=== PATIENT | male | born 1940 | race Caucasian/White ===

== ENCOUNTER → 2017-06-28 | Outpatient (CLI) | payer BC, OTHER ==
[~2017-06-28] MED LIST: ASPEC81 PO; CMD5 PO; CRD200 PO; FLUT1INH INH; GLC/500 PO; LSN25 PO; LSX40 PO; METO50TA16 PO; MYL80 PO; OMEP20CA9 PO; POTA10LI PO; PRAV20TA PO; TRIA0.1C20 EXT
--- NOTE | 2017-06-28 10:16 | DIAGNOSTIC IMAGING REPORT ---
CHEST 2 VIEWS ROUTINE CLINICAL HISTORY: 76 years-old Male presenting with SOB. TECHNIQUE: PA and lateral views of the chest were obtained. COMPARISON: 07/02/2016. FINDINGS: Median sternotomy wires intact. Atherosclerosis of aortic arch. Cardiac silhouette normal in size. Lungs are mildly hyperinflated.Lungs and pleural spaces clear. Osseous structures normal. Upper abdomen normal. IMPRESSION: 1. Mild hyperinflation. Otherwise no acute cardiopulmonary disease. Electronically signed by: Sukhi Purvsi M.D. 06/28/2017 10:14 AM Dictated Date/Time: 06/28/2017 10:13 AM
== END | disposition home or self-care (01) ==
LOC: C.RAD1850 09:49
PROVIDERS: ATTEND Physician Assistant
DX: R06.02 Shortness of breath (principal)

== ENCOUNTER → 2017-11-16 | Outpatient (CLI) | payer BC, OTHER ==
[~2017-11-16] MED LIST changes: +AMLO2.5T PO; +ASPCH81X PO; -ASPEC81 PO; +BCTROWC TOP; -CMD5 PO; -CRD200 PO; +DAPA1TAB8 PO; -FLUT1INH INH; -GLC/500 PO; +GLIP1TAB85 PO; +GLUC15002 PO; +GLUC1CAP6 PO; +IPRA1AER2 INH; +ISS/10 PO; +JNV100 PO; +METO-478 PO; -METO50TA16 PO; +MULT60CA PO; -MYL80 PO; +NTRGSL/4 UT; +OMEG10007 PO; +OMEGCAP2 PO; -POTA10LI PO; +POTA1CAP53 PO; -PRAV20TA PO; -TRIA0.1C20 EXT; +WARF-281 PO; +WARF5TAB90 PO
--- NOTE | 2017-11-16 14:23 | DIAGNOSTIC IMAGING REPORT ---
BONE SCAN WHOLE BODY CLINICAL HISTORY: Prostate carcinoma COMPARISON STUDY: No previous studies for comparison. FINDINGS: The patient was injected with 27.5 mCi of technetium 99m MDP. Three-hour delayed whole body images were acquired. There is evidence for a prior total knee arthroplasty. There is evidence for prior right hip arthroplasty. There are no foci of increased activity viewed as suspicious for skeletal metastasis. IMPRESSION: No bone scan evidence of skeletal metastasis. Electronically signed by: Phan Bailey M.D. 11/16/2017 2:21 PM Dictated Date/Time: 11/16/2017 2:20 PM
== END | disposition home or self-care (01) ==
LOC: C.NUCL 10:10
PROVIDERS: ATTEND Physician Assistant Medical
DX: C61 Malignant neoplasm of prostate (principal)

== ENCOUNTER → 2017-11-19 | Outpatient (CLI) | payer BC, OTHER ==
[~2017-11-19] MED LIST changes: +OPTIRAY 320 IV PRN
--- NOTE | 2017-11-19 07:59 | DIAGNOSTIC IMAGING REPORT ---
CT SCAN OF THE ABDOMEN AND PELVIS WITH IV CONTRAST CLINICAL HISTORY: Prostate cancer. COMPARISON STUDY: Abdominal CT dictated 07/04/2009. Nuclear bone scan dated 11/16/2017. TECHNIQUE: Following the IV administration of 115 cc of Optiray 320, CT scan of the abdomen and pelvis is performed from the lung bases to the proximal femora. Images are reviewed in the axial, sagittal, and coronal planes. IV contrast was administered without complication. A dose lowering technique was utilized adhering to the principles of ALARA. CT DOSE: 1050.17 mGy.cm FINDINGS: Lung bases: The patient is status post midline sternotomy. The heart is mildly enlarged and without pericardial effusion. The coronary arteries and mitral annulus are densely calcified. The lung bases are clear noting dependent atelectasis. There is a small to moderate hiatal hernia. Liver: The contrast-enhanced liver is normal in size, contour, and attenuation. There is no intrahepatic biliary ductal dilatation. The hepatic veins and portal veins are patent. Gallbladder: Surgically absent noting clips in the gallbladder fossa. Spleen: The spleen is mildly enlarged, measuring 14.5 cm in length. Pancreas: Unremarkable. Adrenal glands: Unremarkable. Kidneys: The contrast enhanced kidneys demonstrate mild cortical atrophy and are without hydronephrosis. The kidneys enhance symmetrically. Scattered subcentimeter cortical hypodensities likely represent cysts but are too small for definitive characterization. Abdominal vasculature: The abdominal aorta is normal in course and caliber noting moderate atherosclerotic calcification. Bowel: There is moderate colonic diverticulosis without CT evidence of acute diverticulitis. Mild colonic fecal retention is observed. No bowel obstruction is seen. The appendix is well-visualized and normal. Peritoneum: There is no intraperitoneal free air or abdominal ascites. There is a small fat-containing umbilical hernia. A 1.4 cm benign-appearing nodular focus below the liver seen on image #153 is unchanged dating back to 2008 and of doubtful significance. Lymphadenopathy: None. Pelvic viscera: Evaluation of the pelvis is degraded by streak artifact from a right hip arthroplasty. The prostate gland is enlarged and heterogeneous, measuring 5.6 cm in transverse diameter. The bladder is normal as imaged. Skeletal structures: The skeletal structures are osteopenic. There is mild lumbosacral spondylosis. No lytic or blastic lesions are seen. A right hip arthroplasty is in place. IMPRESSION: 1. There is no evidence of metastatic disease in the abdomen or pelvis. 2. The prostate gland is enlarged and heterogeneous. 3. Moderate colonic diverticulosis without CT evidence of acute diverticulitis. 4. Cardiomegaly and hiatal hernia. 5. Splenomegaly. 6. Additional findings as above. Electronically signed by: Yon Galvez M.D. 11/19/2017 7:57 AM Dictated Date/Time: 11/19/2017 7:49 AM
== END | disposition home or self-care (01) ==
LOC: C.CTS 06:45
PROVIDERS: ATTEND Physician Assistant Medical
DX: C61 Malignant neoplasm of prostate (principal); K57.30 Diverticulosis of large intestine without perforation or abscess without bleeding; I51.7 Cardiomegaly; K44.9 Diaphragmatic hernia without obstruction or gangrene; R16.1 Splenomegaly, not elsewhere classified

== ENCOUNTER 2017-11-21 01:43 | Observation (INO) | payer BC, OTHER ==
[~2017-11-21] VITALS: Ht 175.3 cm; Wt 98.9 kg
[~2017-11-21 01:43] MED LIST changes: -DAPA1TAB8 PO; -GLUC1CAP6 PO; -ISS/10 PO; -METO-478 PO; -OMEG10007 PO; -OPTIRAY 320 IV PRN; -WARF-281 PO
[2017-11-21] MEDS ORDERED: ASPIRIN 324 MG CHEW ONE (01:48)
[2017-11-21] MEDS ORDERED: DILTIAZEM HCL 5 MG/ML 5 ML VIAL ONE (01:50)
[2017-11-21] MEDS ORDERED: DILTIAZEM BOLUS / DRIP IV STA (01:59)
--- NOTE | 2017-11-21 02:04 | EMERGENCY ROOM VISIT NOTE ---
History Report prepared by Radha: Shital Nieto Under the Supervision of: Shelly HendersonO. First contact with patient: 01:52 Chief Complaint: CARDIAC ASSESSMENT Stated Complaint: CHEST PRESSURE/SHORT OF BREATH History of Present Illness The patient is a 76 year old male who presents to the Emergency Room with complaints of persistent shortness of breath that started 2-3 days ago. States this is mostly during any exertion and goes away with rest. He notes he had chest pain an hour ago which woke him up from sleep. He states the pain felt like "tightness". States it feels different from his prior ID. He has not been having chest pain with the shortness of breath in recent days. The patient has a history of Afib. He states he thinks he "flips in and out" of Afib. He is unable to tell when exactly he goes in and out. He states his pain worsens with exertion. The patient had a CT of his abdomen and pelvis a couple of days ago due to his prostate cancer. He notes he has been having diarrhea since the CT. The patient denies any lightheadedness, dizziness, fevers, chills , back pain, or abdominal pain. No recent travel, no change in medications, patient does take Coumadin. Source of History: patient Onset: 2-3 days go Position: other (shortness of breath) Timing: other (persistent) Modifying Factors (Worsening): exertion Associated Symptoms: + chest pain, + diarrhea, No fevers, No chills, No abdominal pain, No back pain Note: Additional symptoms: denies any lightheaded or dizziness. Review of Systems See HPI for pertinent positives & negatives. A total of 10 systems reviewed and were otherwise negative. Past Medical & Surgical Medical Problems: (1) Altered mental status (2) Asthma (3) DM2 (diabetes mellitus, type 2) (4) DVT (deep venous thrombosis) (5) History of left heart catheterization (LHC) (6) HLD (hyperlipidemia) (7) Hyperlipidemia (8) Hypertension (9) AL on CPAP (10) Paroxysmal atrial fibrillation Surgical Problems: (1) H/O esophagogastroduodenoscopy (2) Hx of total knee arthroplasty (3) S/P CABG x 1 (4) S/P cholecystectomy (5) S/P hip replacement (6) S/P knee replacement Family History FHx: diabetes FHx: heart disease FHx: hypertension Social History Smoking Status: Former Smoker Alcohol Use: none Drug Use: none Marital Status: Housing Status: lives with significant other Occupation Status: retired Current/Historical Medications Scheduled Aspirin (Aspirin Chewable), 162 MG PO DAILY Dapagliflozin Propanediol (Farxiga), 10 MG PO DIRECTED Fish Oil ([place]-3), 1,200 MG PO BID Furosemide (Furosemide), 40 MG PO DAILY Glipizide Xl (Glucotrol Xl), 10 MG PO QAM Glucosamine-Chondroitin (Glucosamine Chondroitin C), 1,500 MG PO BID Ipratropium-Albuterol (Combivent Respimat), 1 PUFFS INH QID Lisinopril (Lisinopril), 2.5 MG PO DAILY Metoprolol Succinate (Toprol Xl), 12.5 MG PO DAILY Multiple Vitamins W/ Minerals (Preservision Areds 2), 2 CAP PO DAILY Nitroglycerin (Nitrostat), 0.4 MG UT PRN Omeprazole (Prilosec), 20 MG PO DAILY Potassium Chloride (Klor-Con Sprinkle), 20 MEQ PO DAILY Sitagliptin (Januvia), 100 MG PO DAILY Warfarin Sodium (Warfarin Sodium), 10 MG PO DAILY Allergies Coded Allergies: No Known Allergies (Verified , 11/21/17) Physical Exam Vital Signs Date Time Temp Pulse Resp B/P (MAP) Pulse Ox O2 Delivery O2 Flow Rate FiO2 11/21/17 04:50 91 20 96 Room Air 11/21/17 04:38 65 18 94 Room Air 11/21/17 04:30 110/64 11/21/17 04:08 63 12 11/21/17 04:00 122/67 11/21/17 03:30 110/69 11/21/17 03:08 79 18 93 11/21/17 03:03 117/76 11/21/17 02:52 75 11/21/17 02:43 71 16 94 Room Air 11/21/17 02:13 78 16 91 11/21/17 01:58 93 Room Air 11/21/17 01:54 128 11/21/17 01:52 122/84 11/21/17 01:50 36.8 116 18 122/84 93 Room Air Physical Exam GENERAL: alert, well appearing, well nourished, no distress, non-toxic, obese EYE EXAM: normal conjunctiva, PERRL and EOM's grossly intact OROPHARYNX: no exudate, no erythema, lips, buccal mucosa, and tongue normal and mucous membranes are moist NECK: supple, no nuchal rigidity, no adenopathy, non-tender LUNGS: Decreased breath sounds bilaterally. No wheezes, rhonchi, or rales HEART: Tachycardic and irregular, no murmurs/rhonchi/rales ABDOMEN: abdomen soft, non-tender, normo-active bowel sounds, no masses, no rebound or guarding. BACK: Back is symmetrical on inspection and there is no deformity, no midline tenderness, no CVA tenderness. SKIN: no rashes and no bruising UPPER EXTREMITIES: upper extremities are grossly normal. Full range of motion, normal pulses LOWER EXTREMITIES: 1+ bilateral edema. No evidence of trauma, full range of motion, normal pulses NEURO: Cranial nerves II through XII grossly intact, grossly normal strength, normal sensory exam, no facial droop, normal speech Medical Decision & Procedures ER Provider Diagnostic Interpretation: XRAY: A single view study was reviewed, no fracture was seen. No cardiomegaly, no effusion, midline sternotomy wires noted, no focal infiltrate, no wide mediastinum. CTA CHEST: Comparison March 26, 2016. Limited by motion artifact. Do not feel this exam is sufficient to exclude PE in region of artifact. No large central PE. Cardiomegaly. Interval postoperative changes. Sternotomy is not healed. Cholecystectomy. No effusion. No CT evidence for edema. Small calcified and noncalcified lung nodules. Laboratory Results 11/21/17 01:40 Red Blood Count 5.54, Mean Corpuscular Volume 90.6, Mean Corpuscular Hemoglobin 31.0, Mean Corpuscular Hemoglobin Concent 34.3, Mean Platelet Volume 9.8, Neutrophils (%) (Auto) 54.1, Lymphocytes (%) (Auto) 28.3, Monocytes (%) (Auto) 14.3, Eosinophils (%) (Auto) 2.9, Basophils (%) (Auto) 0.2, Neutrophils # (Auto ) 2.39, Lymphocytes # (Auto) 1.25, Monocytes # (Auto) 0.63, Eosinophils # (Auto ) 0.13, Basophils # (Auto) 0.01 11/21/17 01:40 Test 2/7/18 01:40 11/21/17 02:52 White Blood Count 4.42 K/uL (4.8-10.8) Red Blood Count 5.54 M/uL (4.7-6.1) Hemoglobin 17.2 g/dL (14.0-18.0) Hematocrit 50.2 % (42-52) Mean Corpuscular Volume 90.6 fL (80-100) Mean Corpuscular Hemoglobin 31.0 pg (25-34) Mean Corpuscular Hemoglobin Concent 34.3 g/dl (32-36) Platelet Count 108 K/uL (130-400) Mean Platelet Volume 9.8 fL (7.4-10.4) Neutrophils (%) (Auto) 54.1 % Lymphocytes (%) (Auto) 28.3 % Monocytes (%) (Auto) 14.3 % Eosinophils (%) (Auto) 2.9 % Basophils (%) (Auto) 0.2 % Neutrophils # (Auto) 2.39 K/uL (1.4-6.5) Lymphocytes # (Auto) 1.25 K/uL (1.2-3.4) Monocytes # (Auto) 0.63 K/uL (0.11-0.59) Eosinophils # (Auto) 0.13 K/uL (0-0.5) Basophils # (Auto) 0.01 K/uL (0-0.2) RDW Standard Deviation 45.5 fL (36.4-46.3) RDW Coefficient of Variation 13.7 % (11.5-14.5) Immature Granulocyte % (Auto) 0.2 % Immature Granulocyte # (Auto) 0.01 K/uL (0.00-0.02) Prothrombin Time 18.4 SECONDS (9.0-12.0) Prothromb Time International Ratio 1.8 (0.9-1.1) Anion Gap 6.0 mmol/L (3-11) Est Creatinine Clear Calc Drug Dose 77.6 ml/min Estimated GFR () 88.0 Estimated GFR (Non- 75.9 BUN/Creatinine Ratio 22.2 (10-20) Calcium Level 8.6 mg/dl (8.5-10.1) Magnesium Level 2.1 mg/dl (1.8-2.4) Total Bilirubin 0.5 mg/dl (0.2-1) Aspartate Amino Transf (AST/SGOT) 36 U/L (15-37) Alanine Aminotransferase (ALT/SGPT) 46 U/L (12-78) Alkaline Phosphatase 83 U/L (45-117) Pro-B-Type Natriuretic Peptide 320 pg/ml (0-1800) Total Protein 8.1 gm/dl (6.4-8.2) Albumin 4.0 gm/dl (3.4-5.0) Globulin 4.1 gm/dl (2.5-4.0) Albumin/Globulin Ratio 1.0 (0.9-2) Lipase 166 U/L (73-393) Thyroid Stimulating Hormone (TSH) 2.490 uIu/ml (0.300-4.500) Urine Color YELLOW Urine Appearance CLOUDY (CLEAR) Urine pH 5.0 (4.5-7.5) Urine Specific [place] 1.017 (1.000-1.030) Urine Protein TRACE (NEG) Urine Glucose (UA) 3+ (NEG) Urine Ketones NEG (NEG) Urine Occult Blood 3+ (NEG) Urine Nitrite NEG (NEG) Urine Bilirubin NEG (NEG) Urine Urobilinogen NEG (NEG) Urine Leukocyte Esterase NEG (NEG) Urine WBC (Auto) 0 /hpf (0-5) Urine RBC (Auto) 10-30 /hpf (0-4) Urine Hyaline Casts (Auto) 1-5 /lpf (0-5) Urine Epithelial Cells (Auto) 0-5 /lpf (0-5) Urine Bacteria (Auto) NEG (NEG) Laboratory results per my review. ECG Indication: other (Atrial Fibrillation ) Rate (beats per minute): 133 Rhythm: atrial fibrillation Findings: Q waves (3 avf, v1 v2 v3), RBBB, no acute ischemic change Change: EKG: Patient's electrocardiogram per my interpretation. ED Course 0152: The patient was evaluated in room B7. A complete history and physical exam was performed. 0159: Diltiazem HCl 1 ea IV. 0215: Diltiazem HCl 125 mg/Dextrose 125 ml @ 0 mls/hr Protocol IV. 0312: I updated the patient. He has no further chest pressure, still short of breath, and was in normal sinus rhythm with a rate in the 70s. 0345: 2nd EKG interpretation done by me. Sinus rhythm, rate of 74, RBBB, normal axis, normal intervals, normal QTC, no acute ischemia. 0439: I updated the patient. He has no recurring chest pain. Still normal sinus rhythm. Shortness of breath slightly improved. 0508: I reviewed the patient's case with Lena Davis. She will evaluate the patient for further management. Medical Decision Differential diagnosis: Etiologies such as infections, reactive airway disease, pneumonia, pneumothorax , COPD, CHF, cardiac ischemia, pulmonary embolism, musculoskeletal, gastrointestinal, as well as others were entertained. Patient well-appearing here despite complaints. Patient initially presented in rapid A. fib which was persistent after being given a bolus of Cardizem by EMS prior to arrival. As Cardizem drip is being hung, patient spontaneously converted to normal sinus rhythm when he had a bowel movement. Patient remained in normal sinus rhythm for the rest of the time in the emergency room. Patient states his conversion to normal sinus rhythm did not relieve his sense of shortness of breath, however did minimally improve his chest pain. Patient has been having diarrhea from 2 days, no recent medication changes, sick contacts, travel. I feel his diarrhea is most likely secondary to drinking oral contrast for his CAT scan on Sunday. I did review the CAT scan of his abdomen and pelvis in the EMR, there were no acute findings at that time , he did an have enlarged heterogenous prostate was noted, however there is no evidence of metastasis and also no other evidence of acute GI pathology to otherwise explain his diarrhea. Patient's labs here reassuring, troponin negative, no evidence of acute congestive heart failure. Prior echo from 2 years ago revealed an EF 45%. Patient with significant cardiac history. Given his subtherapeutic INR, an unknown amount of time in atrial fibrillation, patient sent for a CAT scan of his chest to rule out PE. No acute pathology noted on the CT of his chest. I do not suspect acute infectious etiology. I discussed the case with the hospitalist for additional evaluation and treatment given the patient's persistent symptoms and risk factors. Medication Reconcilliation Current Medication List: was personally reviewed by me Blood Pressure Screening Patient's blood pressure: Normal blood pressure Consults Time Called: 0505 Consulting Physician: Lena Davis Returned Call: [phone] I reviewed the patient's case with Dr. [place], [facility]. She will evaluate the patient for further management. Impression Primary Impression: Chest pain Additional Impressions: Dyspnea Atrial fibrillation Hematuria Subtherapeutic international normalized ratio (INR) Scribe Attestation The scribe's documentation has been prepared under my direction and personally reviewed by me in its entirety. I confirm that the note above accurately reflects all work, treatment, procedures, and medical decision making performed by me. Departure Information Dispostion Being Evaluated By Hospitalist Referrals Justa Lebron DO (PCP) Patient Instructions [facility] Problem Qualifiers Primary Impression: Chest pain Chest pain type: unspecified Qualified Codes: R07.9 - Chest pain, unspecified Additional Impressions: Dyspnea Dyspnea type: dyspnea on exertion Qualified Codes: R06.09 - Other forms of dyspnea Atrial fibrillation Atrial fibrillation type: paroxysmal Qualified Codes: I48.0 - Paroxysmal atrial fibrillation Hematuria Hematuria type: unspecified type Qualified Codes: R31.9 - Hematuria, unspecified
[2017-11-21] MEDS ORDERED: DILTIAZEM HCL INJ 125 MG in DEXTROSE 5% 100ML IV PRN (02:15)
[2017-11-21 02:17] LABS: BASO % 0.2 %; BASO ABS # 0.01 K/uL (0-0.2); EOS % 2.9 %; EOS ABS # 0.13 K/uL (0-0.5); HEMATOCRIT 50.2 % (42-52); HEMOGLOBIN 17.2 g/dL (14.0-18.0); IG# 0.01 K/uL (0.00-0.02); LYMPH % 28.3 %; LYMPH ABS # 1.25 K/uL (1.2-3.4); MEAN CELL VOLUME 90.6 fL (80-100); MEAN CORPUSCULAR HGB CONC 34.3 g/dl (32-36); MEAN PLATELET VOLUME 9.8 fL (7.4-10.4); MONO % 14.3 %; MONO ABS # 0.63 K/uL (0.11-0.59); NEUT % 54.1 %; NEUT ABS # 2.39 K/uL (1.4-6.5); PLATELET COUNT 108 K/uL (130-400); RED CELL DISTRIBUTION WIDTH CV 13.7 % (11.5-14.5); RED CELL DISTRIBUTION WIDTH SD 45.5 fL (36.4-46.3); WHITE BLOOD COUNT 4.42 K/uL (4.8-10.8)
[2017-11-21] MEDS ORDERED: ISS/10 PO (02:23)
[2017-11-21] MEDS ORDERED: DAPA1TAB8 PO (02:25)
[2017-11-21 02:26] LABS: ALT/SGPT 46 U/L (12-78); AST/SGOT 36 U/L (15-37); BLOOD UREA NITROGEN 21 mg/dl (7-18); CALCIUM 8.6 mg/dl (8.5-10.1); CARBON DIOXIDE 26 mmol/L (21-32); CREATININE 0.96 mg/dl (0.60-1.40); GLUCOSE 145 mg/dl (70-99); INR 1.8 (0.9-1.1); LIPASE 166 U/L (73-393); POTASSIUM 3.8 mmol/L (3.5-5.1); SODIUM 136 mmol/L (136-145)
[2017-11-21 02:37] LABS: ALKALINE PHOSPHATASE 83 U/L (45-117); TOTAL PROTEIN 8.1 gm/dl (6.4-8.2)
[2017-11-21] MEDS ORDERED: OPTIRAY 320 IV PRN (03:45)
[2017-11-21] MEDS ORDERED: IV FLUIDS COMPLETED PRN (05:45)
[2017-11-21] MEDS ORDERED: NITROGLYCERIN 0.4 MG SL PER TAB CHARGE SL PRN (06:00)
[2017-11-21] MEDS ORDERED: SODIUM CHLORIDE 0.9% 1000ML 1,000 ML IV SCH (06:00)
[2017-11-21] MEDS ORDERED: MoRPHine SULFATE 2 MG/ML CARP IV PRN (06:00)
[2017-11-21] MEDS ORDERED: ONDANSETRON INJ 2 MG/ML 2 ML VIAL IV PRN (06:00)
[2017-11-21] MEDS ORDERED: ACETAMINOPHEN 325 MG TAB PO PRN (06:00)
[2017-11-21 06:05] VITALS: BP 138/89; PULSE 62; TEMP 36.5; O2SAT 94; Ht 175.3 cm; Wt 98.9 kg
[2017-11-21] MEDS ORDERED: GLUC1CAP6 PO (06:19)
[2017-11-21] MEDS ORDERED: METO-478 PO (06:19)
[2017-11-21] MEDS ORDERED: OMEG10007 PO (06:19)
[2017-11-21] MEDS ORDERED: WARF-281 PO (06:19)
[2017-11-21] MEDS ORDERED: DEXTROSE 50% 50 ML SYR IV PRN (06:30)
[2017-11-21] MEDS ORDERED: NITROGLYCERIN 0.4 MG SL PER TAB CHARGE UT SCH (06:30)
[2017-11-21] MEDS ORDERED: GLUCAGON FOR INJ 1 MG VIAL SQ PRN (06:30)
[2017-11-21] MEDS ORDERED: GLUCOSE 10 TABS/TUBE PO PRN (06:30)
[2017-11-21] MEDS ORDERED: GLUCOSE 40% GEL 15 GM TUBE PO PRN (06:30)
--- NOTE | 2017-11-21 06:31 | DIAGNOSTIC IMAGING REPORT ---
CHEST ONE VIEW PORTABLE CLINICAL HISTORY: Atypical chest pain and shortness of breath COMPARISON STUDY: 08/18/2017 FINDINGS: There are postsurgical changes of a midline sternotomy. The heart is normal in size. There is no failure. There is no focal pulmonary consolidation. There are no pleural effusions.[ IMPRESSION: No active disease in the chest. Electronically signed by: Phan Bailey M.D. 11/21/2017 6:29 AM Dictated Date/Time: 11/21/2017 6:29 AM
[2017-11-21] MEDS ORDERED: LOPERAMIDE HCL 2 MG CAP PO ONE (06:45)
[2017-11-21] MEDS: INSULIN ASPART 100 UNITS/ML 3 ML PEN SC SCH ×3 (07:00→17:51)
--- NOTE | 2017-11-21 07:01 | History and Physical ---
History & Physical Date & Time of Service: Nov 21, 2017 at 06:33 Chief Complaint: Chest Pain Primary Care Physician: Justa Lebron DO History of Present Illness Source: patient, family, clinic records, hospital records 76 yo M presents via EMS initially for chest pressure in the setting of rapid afib found at home to have a HR of 143. He was started on Cardizem in the field and given ASA. He was still in afib with RVR with a rate of 130s on his arrival to the ER, so a cardizem drip was ordered. However, the patient ambulated to the bathroom and spontaneously converted to sinus rhythm. He was recently diagnosed with prostate cancer after biopsies taken in early October and a CT scan with contrast was performed two days ago. After drinking the contrast, he has noted excessive diarrhea and dyspnea with exertion. Although the GILBERT was present, there was no chest pain until today which came on as a "pressure" waking him from sleep this evening around 0100. He had some associated SOB but denies diaphoresis, lightheadedness, nausea, tingling or other symptoms. He has a h/o PAF and is on coumadin. As his INR was 1.8 he underwent a CTA with no presence of PE. His chest pain resolved when he converted to sinus rhythm. He does report a lack of appetite and hasn't been eating well or staying hydrated in the presence of the diarrhea. He denies recent antibiotic use. He reports that this is not similar to his index angina. He has a h/o CAD s/p one BMS to mid LAD in May 2016 and subsequent CABG x 1V later that same month. He also has a h/o aortic stenosis, ischemic cardiomyopathy with an EF 45 %, PVD, AL on CPAP, HTN, and DMII. He was recently seen by Cardiology who had him on Toprol XL 12.5mg, however, he thinks he ran out of this and has not been taking it for several weeks. Past Medical/Surgical History Medical Problems: (1) Asthma Status: Chronic (2) DM2 (diabetes mellitus, type 2) Status: Chronic (3) DVT (deep venous thrombosis) Permanent Comment: RLE Status: Resolved (4) History of left heart catheterization (LHC) Permanent Comment: 60% stenosis mid left anterior descending Status: Chronic (5) HLD (hyperlipidemia) Status: Chronic (6) Hyperlipidemia Status: Chronic (7) Hypertension Status: Chronic (8) AL on CPAP Status: Chronic (9) Paroxysmal atrial fibrillation Status: Chronic Surgical Problems: (1) H/O esophagogastroduodenoscopy Status: Resolved (2) Hx of total knee arthroplasty Status: Resolved (3) S/P CABG x 1 Status: Resolved (4) S/P cholecystectomy Status: Resolved (5) S/P hip replacement Status: Resolved Family History FHx: diabetes FHx: heart disease FHx: hypertension Social History Smoking Status: Former Smoker Smokeless Tobacco Use: No Alcohol Use: socially Drug Use: none Marital Status: Housing status: lives with significant other Occupational Status: retired Immunizations History of Influenza Vaccine: Yes Influenza Vaccine Date: Sep 28, 2015 History of Tetanus Vaccine?: Yes Tetanus Immunization Date: Sep 28, 2015 History of Pneumococcal: Yes Pneumococcal Date: Sep 28, 2015 History of Hepatitis B Vaccine: Unknown Multi-Drug Resistant Organisms History of MDRO: Yes Type of MDRO: MRSA Allergies Coded Allergies: No Known Allergies (Verified , 11/21/17) Home Medications Scheduled Aspirin (Aspirin Chewable), 162 MG PO DAILY Dapagliflozin Propanediol (Farxiga), 10 MG PO DIRECTED Fish Oil ([place]-3), 1,200 MG PO BID Furosemide (Furosemide), 40 MG PO DAILY Glipizide Xl (Glucotrol Xl), 10 MG PO QAM Glucosamine-Chondroitin (Glucosamine Chondroitin C), 1,500 MG PO BID Ipratropium-Albuterol (Combivent Respimat), 1 PUFFS INH QID Lisinopril (Lisinopril), 2.5 MG PO DAILY Metoprolol Succinate (Toprol Xl), 12.5 MG PO DAILY Multiple Vitamins W/ Minerals (Preservision Areds 2), 2 CAP PO DAILY Nitroglycerin (Nitrostat), 0.4 MG UT PRN Omeprazole (Prilosec), 20 MG PO DAILY Potassium Chloride (Klor-Con Sprinkle), 20 MEQ PO DAILY Sitagliptin (Januvia), 100 MG PO DAILY Warfarin Sodium (Warfarin Sodium), 10 MG PO DAILY Review of Systems At least ten systems were reviewed and negative except as indicated in HPI above. Physical Exam Vital Signs Date Time Temp Pulse Resp B/P (MAP) Pulse Ox O2 Delivery O2 Flow Rate FiO2 11/21/17 05:49 68 20 132/73 98 11/21/17 04:50 91 20 96 Room Air 11/21/17 04:38 65 18 94 Room Air 11/21/17 04:30 110/64 11/21/17 04:08 63 12 11/21/17 04:00 122/67 11/21/17 03:30 110/69 11/21/17 03:08 79 18 93 11/21/17 03:03 117/76 11/21/17 02:52 75 11/21/17 02:43 71 16 94 Room Air 11/21/17 02:13 78 16 91 11/21/17 01:58 93 Room Air 11/21/17 01:54 128 11/21/17 01:52 122/84 11/21/17 01:50 36.8 116 18 122/84 93 Room Air General Appearance: WD/WN, no apparent distress Head: normocephalic, atraumatic Eyes: normal inspection, PERRL, sclerae normal ENT: hearing grossly normal, pharynx normal Neck: supple, no adenopathy, no JVD, trachea midline Respiratory/Chest: chest non-tender, lungs clear, normal breath sounds, no respiratory distress, no accessory muscle use Cardiovascular: regular rate, rhythm, no edema, no gallop, no JVD, no murmur, normal peripheral pulses Abdomen/GI: normal bowel sounds, non tender, soft Back: normal inspection Extremities/Musculoskelatal: normal inspection, normal capillary refill, normal range of motion Neurologic/Psych: 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, alert, normal mood/affect, oriented x 3 Skin: warm/dry Diagnostics Laboratory Results 11/21/17 01:40 Red Blood Count 5.54, Mean Corpuscular Volume 90.6, Mean Corpuscular Hemoglobin 31.0, Mean Corpuscular Hemoglobin Concent 34.3, Mean Platelet Volume 9.8, Neutrophils (%) (Auto) 54.1, Lymphocytes (%) (Auto) 28.3, Monocytes (%) (Auto) 14.3, Eosinophils (%) (Auto) 2.9, Basophils (%) (Auto) 0.2, Neutrophils # (Auto ) 2.39, Lymphocytes # (Auto) 1.25, Monocytes # (Auto) 0.63, Eosinophils # (Auto ) 0.13, Basophils # (Auto) 0.01 11/21/17 01:40 Test 11/21/17 01:40 11/21/17 02:52 White Blood Count 4.42 K/uL (4.8-10.8) Red Blood Count 5.54 M/uL (4.7-6.1) Hemoglobin 17.2 g/dL (14.0-18.0) Hematocrit 50.2 % (42-52) Mean Corpuscular Volume 90.6 fL (80-100) Mean Corpuscular Hemoglobin 31.0 pg (25-34) Mean Corpuscular Hemoglobin Concent 34.3 g/dl (32-36) Platelet Count 108 K/uL (130-400) Mean Platelet Volume 9.8 fL (7.4-10.4) Neutrophils (%) (Auto) 54.1 % Lymphocytes (%) (Auto) 28.3 % Monocytes (%) (Auto) 14.3 % Eosinophils (%) (Auto) 2.9 % Basophils (%) (Auto) 0.2 % Neutrophils # (Auto) 2.39 K/uL (1.4-6.5) Lymphocytes # (Auto) 1.25 K/uL (1.2-3.4) Monocytes # (Auto) 0.63 K/uL (0.11-0.59) Eosinophils # (Auto) 0.13 K/uL (0-0.5) Basophils # (Auto) 0.01 K/uL (0-0.2) RDW Standard Deviation 45.5 fL (36.4-46.3) RDW Coefficient of Variation 13.7 % (11.5-14.5) Immature Granulocyte % (Auto) 0.2 % Immature Granulocyte # (Auto) 0.01 K/uL (0.00-0.02) Prothrombin Time 18.4 SECONDS (9.0-12.0) Prothromb Time International Ratio 1.8 (0.9-1.1) Anion Gap 6.0 mmol/L (3-11) Est Creatinine Clear Calc Drug Dose 77.6 ml/min Estimated GFR () 88.0 Estimated GFR (Non- 75.9 BUN/Creatinine Ratio 22.2 (10-20) Calcium Level 8.6 mg/dl (8.5-10.1) Magnesium Level 2.1 mg/dl (1.8-2.4) Total Bilirubin 0.5 mg/dl (0.2-1) Aspartate Amino Transf (AST/SGOT) 36 U/L (15-37) Alanine Aminotransferase (ALT/SGPT) 46 U/L (12-78) Alkaline Phosphatase 83 U/L (45-117) Troponin I < 0.015 ng/ml (0-0.045) Pro-B-Type Natriuretic Peptide 320 pg/ml (0-1800) Total Protein 8.1 gm/dl (6.4-8.2) Albumin 4.0 gm/dl (3.4-5.0) Globulin 4.1 gm/dl (2.5-4.0) Albumin/Globulin Ratio 1.0 (0.9-2) Lipase 166 U/L (73-393) Thyroid Stimulating Hormone (TSH) 2.490 uIu/ml (0.300-4.500) Urine Color YELLOW Urine Appearance CLOUDY (CLEAR) Urine pH 5.0 (4.5-7.5) Urine Specific [place] 1.017 (1.000-1.030) Urine Protein TRACE (NEG) Urine Glucose (UA) 3+ (NEG) Urine Ketones NEG (NEG) Urine Occult Blood 3+ (NEG) Urine Nitrite NEG (NEG) Urine Bilirubin NEG (NEG) Urine Urobilinogen NEG (NEG) Urine Leukocyte Esterase NEG (NEG) Urine WBC (Auto) 0 /hpf (0-5) Urine RBC (Auto) 10-30 /hpf (0-4) Urine Hyaline Casts (Auto) 1-5 /lpf (0-5) Urine Epithelial Cells (Auto) 0-5 /lpf (0-5) Urine Bacteria (Auto) NEG (NEG) Results Past 24 Hours Test 11/21/17 01:40 11/21/17 02:52 Range/Units White Blood Count 4.42 4.8-10.8 K/uL Red Blood Count 5.54 4.7-6.1 M/uL Hemoglobin 17.2 14.0-18.0 g/dL Hematocrit 50.2 42-52 % Mean Corpuscular Volume 90.6 80-100 fL Mean Corpuscular Hemoglobin 31.0 25-34 pg Mean Corpuscular Hemoglobin Concent 34.3 32-36 g/dl Platelet Count 108 130-400 K/uL Mean Platelet Volume 9.8 7.4-10.4 fL Neutrophils (%) (Auto) 54.1 % Lymphocytes (%) (Auto) 28.3 % Monocytes (%) (Auto) 14.3 % Eosinophils (%) (Auto) 2.9 % Basophils (%) (Auto) 0.2 % Neutrophils # (Auto) 2.39 1.4-6.5 K/uL Lymphocytes # (Auto) 1.25 1.2-3.4 K/uL Monocytes # (Auto) 0.63 0.11-0.59 K/uL Eosinophils # (Auto) 0.13 0-0.5 K/uL Basophils # (Auto) 0.01 0-0.2 K/uL RDW Standard Deviation 45.5 36.4-46.3 fL RDW Coefficient of Variation 13.7 11.5-14.5 % Immature Granulocyte % (Auto) 0.2 % Immature Granulocyte # (Auto) 0.01 0.00-0.02 K/uL Prothrombin Time 18.4 9.0-12.0 SECONDS Prothromb Time International Ratio 1.8 0.9-1.1 Sodium Level 136 136-145 mmol/L Potassium Level 3.8 3.5-5.1 mmol/L Chloride Level 104 98-107 mmol/L Carbon Dioxide Level 26 21-32 mmol/L Anion Gap 6.0 3-11 mmol/L Blood Urea Nitrogen 21 7-18 mg/dl Creatinine 0.96 0.60-1.40 mg/dl Est Creatinine Clear Calc Drug Dose 77.6 ml/min Estimated GFR () 88.0 Estimated GFR (Non- 75.9 BUN/Creatinine Ratio 22.2 10-20 Random Glucose 145 70-99 mg/dl Calcium Level 8.6 8.5-10.1 mg/dl Magnesium Level 2.1 1.8-2.4 mg/dl Total Bilirubin 0.5 0.2-1 mg/dl Aspartate Amino Transf (AST/SGOT) 36 15-37 U/L Alanine Aminotransferase (ALT/SGPT) 46 12-78 U/L Alkaline Phosphatase 83 45-117 U/L Troponin I < 0.015 0-0.045 ng/ml Pro-B-Type Natriuretic Peptide 320 0-1800 pg/ml Total Protein 8.1 6.4-8.2 gm/dl Albumin 4.0 3.4-5.0 gm/dl Globulin 4.1 2.5-4.0 gm/dl Albumin/Globulin Ratio 1.0 0.9-2 Lipase 166 73-393 U/L Thyroid Stimulating Hormone (TSH) 2.490 0.300-4.500 uIu/ml Urine Color YELLOW Urine Appearance CLOUDY CLEAR Urine pH 5.0 4.5-7.5 Urine Specific [place] 1.017 1.000-1.030 Urine Protein TRACE NEG Urine Glucose (UA) 3+ NEG Urine Ketones NEG NEG Urine Occult Blood 3+ NEG Urine Nitrite NEG NEG Urine Bilirubin NEG NEG Urine Urobilinogen NEG NEG Urine Leukocyte Esterase NEG NEG Urine WBC (Auto) 0 0-5 /hpf Urine RBC (Auto) 10-30 0-4 /hpf Urine Hyaline Casts (Auto) 1-5 0-5 /lpf Urine Epithelial Cells (Auto) 0-5 0-5 /lpf Urine Bacteria (Auto) NEG NEG Diagnostic Radiology CHEST ONE VIEW PORTABLE CLINICAL HISTORY: Atypical chest pain and shortness of breath COMPARISON STUDY: 08/18/2017 FINDINGS: There are postsurgical changes of a midline sternotomy. The heart is normal in size. There is no failure. There is no focal pulmonary consolidation. There are no pleural effusions.[ IMPRESSION: No active disease in the chest. CTA-wet read, no large central PE noted. Final reading pending. EKG atrial fibrillation with RVR rate 143. Impression Assessment and Plan 76 yo M with PAF and CAD presents with chest pressure and afib w RVR s/p spontaneous conversion. 1. Afib wtih RVR-present in the field and treated with Cardizem. Pt has notably had excessive diarrhea since drinking radiation contrast for a study two days ago. Also, has been out of his Toprol recently. Will restart this now and cont coumadin. 2. chest pressure-likely related to the afib as it resolved with conversion to sinus. Also not described as his index angina. However, with symptoms ongoing for several days, risk factors including age, DMII and known CAD, will keep him in the hospital and trend his enzymes. Cardiology consult. Nitro/Morphine PRN 3. Diarrhea-likely 2/2 contrast from study the other day. Will check c-dff and stool studies. In the meantime will give 2mg CAP Imodium to slow down his diarrhea 4. DMI-ISS/Lantus w carb coverage 5. CAD-cont medical management with ASA 162 and lisinopril. Pt noted to be statin intolerant and this was confirmed with him on admission. 6. HTN-controlled. Cont Toprol XL and lisinopril. 7. Prostate cancer-Dr. Arciniega is Uro and he is planning to undergo XRT oncology treatment DVT prophy: coumadin Full Code Dispo-telemetry DO [facility] Level [facility] Care Telemetry Resuscitation Status FULL RESUSCITATION VTE Prophylaxis VTE Risk Assessment Done? Y/N: Yes Risk Level: Moderate Given or contraindicated: Warfarin (Coumadin)
--- NOTE | 2017-11-21 07:05 | DIAGNOSTIC IMAGING REPORT ---
(CHEST FOR PE) ANGIO WITH CLINICAL HISTORY: 76 years-old Male presenting with ^chest pain, sob, low INR, a.fib. TECHNIQUE: Multidetector CT angiography of the chest was performed after administration of intravenous contrast. 3-D volumetric and/or maximum intensity projection (MIP) images were subsequently reconstructed for review. IV contrast: 94 mL of Optiray 320. A dose lowering technique was used consistent with the principles of ALARA (as low as reasonably achievable). COMPARISON: 03/26/2016. CT DOSE (mGy.cm): The estimated cumulative dose is 564.05 mGy.cm. 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 Cholecystectomy clips. Pulmonary vasculature: The study is suboptimal for the assessment of the pulmonary vascular tree secondary to respiratory motion artifact. Allowing for limited image quality, no central filling defect to suggest pulmonary embolus. Main pulmonary artery is top normal in size. No flattening of the interventricular septum. No intracardiac filling defect. No reflux of contrast into the hepatic veins. Remaining chest: On soft tissue windows, normal thyroid and thoracic inlet. Small bilateral hilar lymph nodes, likely reactive. Atherosclerosis of the aorta. Four-vessel aortic arch. Normal heart size. Coronary artery and aortic valve calcification. Postsurgical changes of coronary artery bypass, new from prior exam. No pericardial or pleural effusion. Hepatic steatosis. On lung windows, minimal dependent changes likely atelectasis. Mosaic attenuation in the right upper lobe could suggest small airways disease. Few small solid fissural nodules in the right middle lobe noted, the largest measuring 3 mm (series 4 image 141) evaluation of lung parenchyma is degraded by motion artifact related to respiration. Minimal irregular opacity in the right upper lobe (series 4 image 166). Bronchial wall thickening in the right upper lobe. Central airways patent. On bone windows, degenerative changes of the spine and left glenohumeral joint. IMPRESSION: 1. Allowing for suboptimal image quality, no evidence of pulmonary embolus. 2. Mosaic attenuation combined with limited irregular opacity and bronchial wall thickening all within the right upper lobe suggests developing bronchiolitis or pneumonitis, most likely infectious. 3. Few small solid pulmonary nodules in the right middle lobe measuring up to 3 mm. Follow-up per [place] Society 2017 recommendations below. These could represent unencapsulated pulmonary lymphoid tissue. 4. 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 5. Hepatic steatosis. The report will be called/faxed according to standard departmental protocol. Please refer to below summary of Fleischner Society 2017 recommendations for follow-up of incidental CT nodules (Arslan Butler et al. Guidelines for management of incidental pulmonary nodules detected on CT images: From the Fleischner Society 2017. Radiology 2017; 284: 228-243.) SOLID NODULES Single nodule; size < 6 mm * Low risk patients: No routine follow-up * High risk patients: Optional CT at 12 months Single nodule; size 6-8 mm * Low risk patients: CT at 6-12 months, then consider CT at 18-24 months * High risk patients: CT at 6-12 months, then at 18-24 months Single nodule; size > 8 mm * Either low or high risk patients: Considered CT at 3 months, PET/CT, or tissue sampling Multiple nodules; size < 6 mm * Low risk patients: No routine follow up * High risk patients: Optional CT at 12 months Multiple nodules; size 6-8 mm * Low risk patients: CT at 3-6 months, then consider CT at 18-24 months * High risk patients: CT at 3-6 months, then at 18-24 months Multiple nodules; size > 8 mm * Low risk patients: CT at 3-6 months, then consider at 18-24 months * High risk patients: CT at 3-6 months, then at 18-24 months Note: These guidelines apply to incidental nodules. These guidelines do not apply to patients younger than 35 years, immunocompromised patients, or patients with cancer. * Low risk patients: Minimal or absent history of smoking and/or other known risk factors * High risk patients: History of smoking, exposure to other carcinogens, emphysema, fibrosis, upper lobe location, family history of lung cancer, etc. * If a nodule up to 8 mm is partly solid or is ground glass, further follow-up is required after 24 months to exclude possible slow growing adenocarcinoma. SUBSOLID NODULES Single ground-glass nodule * Nodule size < 6 mm: No routine follow-up * Nodule size > or = 6 mm: CT at 6-12 months to confirm persistence, then CT every 2 years until 5 years Single part-solid nodule * Nodule size < 6 mm: No routine follow-up * Nodules size > or = 6 mm: CT at 3-6 months to confirm persistence. If unchanged and solid component remains < 6 mm, annual CT should be performed for 5 years Multiple nodules * Nodule size < 6 mm: CT at 3-6 months. If stable, consider CT at 2 and 4 years. * Nodules size > or = 6 mm: CT at 3-6 months. Subsequent management based on the most suspicious nodule(s) Electronically signed by: Sukhi Purvis M.D. 11/21/2017 7:03 AM Dictated Date/Time: 11/21/2017 6:39 AM
[2017-11-21] MEDS ORDERED: PNEUMOCOCCAL ADMINISTRATION CHARGE ONE (08:00)
[2017-11-21] MEDS ORDERED: PNEUMOCOCCAL POLYSACCHARIDES 25 MCG/0.5 ML VIAL/SYR IM. ONE (08:00)
[2017-11-21 08:03] VITALS: BP 144/87; PULSE 65; TEMP 36.4; O2SAT 95
[2017-11-21] MEDS: IPRATROPIUM BROMIDE/ALBUTEROL respimat INH INH SCH ×3 (08:31→17:52)
[2017-11-21] MEDS ORDERED: CEROVITE ADV FORMULA TAB PO SCH (09:00)
[2017-11-21] MEDS ORDERED: LISINOPRIL 2.5 MG TAB PO SCH (09:00)
[2017-11-21] MEDS ORDERED: ASPIRIN 81 MG ECTAB PO SCH (09:00)
[2017-11-21] MEDS ORDERED: PANTOprazole SOD 40 MG TAB PO SCH (09:00)
[2017-11-21] MEDS ORDERED: METOPROLOL SUCC 25MG EXT REL TAB PO SCH (09:00)
[2017-11-21 11:32] VITALS: BP 139/86; PULSE 54; TEMP 36.5; O2SAT 95
[2017-11-21 14:50] VITALS: BP 151/83; PULSE 55; TEMP 36.5; O2SAT 96
[2017-11-21] MEDS ORDERED: WARFARIN SOD 10 MG TAB PO SCH (16:00)
--- NOTE | 2017-11-21 16:16 | Cardiology Consultation ---
Cardiology Consultation Date of Consultation: Nov 21, 2017 History of Present Illness Hayes Lopez is a 76 year old male seen in cardiology consultation per the request of Dr Ordonez for evaluation of chest tightness and recent shortness of breath. The patient is well-known to our cardiology practice having been followed closely by Dr. Clark in Mr. Loza in the past with most recent clinic visit with Mr. Loza in September,. The patient describes that he was in his normal state of health last evening. At about midnight he woke up with chest tightness. EMS was summoned to his home and is found to have atrial fibrillation with rapid ventricular rate and IV diltiazem was administered by EMS prehospital. His initial EKG performed on 11/21/17 at 1:49 AM in the emergency department revealed atrial fibrillation with rapid ventricular rate 133 bpm with underlying right bundle branch block morphology. He was placed on a heart infusion and at 2:10 AM he spontaneous converted to sinus rhythm. There were no significant conversion pauses noted on telemetry. A repeat EKG performed on 11/21/17 at 2:16 AM revealed sinus rhythm at 74 bpm with right bundle branch block. An age undetermined anterior infarction cannot be excluded based on the morphology of the QRS complexes in the anteroseptal leads. The patient remained without any significant arrhythmia overnight. Currently sinus bradycardia in the 53-55 bpm range is noted. Denies any chest discomfort or palpitations. In addition to the chest tightness he described last night he also describes recent exertional shortness of breath. He states that when he walks on the treadmill he is only able to walk for about a minute before having to stop due to profound fatigue. Review of his chart reveals however that he had been seen as an acute visit in cardiology clinic by Mr. Loza back in May 2017 with very similar complaints. Medication adjustments were attempted including escalation of his diuretic regimen. The patient ultimately underwent left and right cardiac catheterization at [facility] on 06/01/17. The ABRAMS to LAD graft was patent. No obstructive CAD was noted with the exception of a 100% mid LAD occlusion. The right-sided pressures as well as the pulmonary capillary wedge pressure was normal. A 14 day 0 manager advertising was performed in August,. No atrial fibrillation was noted the patient did have 576 episodes of supraventricular tachycardia the longest of which was 1 minute and 34 seconds in duration. The average heart rate during the two-week monitor was 69 bpm. No pauses are profound bradycardia were noted. History Past Medical History: 1. Chronic coronary heart disease status post PCI and bare metal stenting to the mid LAD on 05/16/2016. 2. 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 3. The patient therefore underwent coronary artery bypass grafting 1 with ABRAMS to LAD given the LAD stenosis and persistent angina May 29, 2016 4. 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 Moderate aortic valve stenosis by echocardiogram March 2017 6. Paroxysmal atrial fibrillation for which she is chronically anticoagulated with Coumadin 7. Peripheral arterial disease 8. Obstructive sleep apnea 9. Hypertension 10. Dyslipidemia with past statin intolerance 11. Type 2 diabetes mellitus 12. Recent diagnosis of prostate carcinoma, negative recent bone scan, radiation therapy planned with recent consultation reviewed. 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 A total of 10 systems reviewed and were otherwise negative. Allergies Coded Allergies: No Known Allergies (Verified , 11/21/17) Medications Reported Home Medications Medications Dose Route/Sig Max Daily Dose Days Date Category Glucosamine Chondroitin C (Glucosamine-Chondroitin) 1 Cap Cap 1,500 Mg PO BID 11/21/17 Reported [place]-3 (Fish Oil) 1 Ea Cap 1,200 Mg PO BID 11/21/17 Reported Toprol Xl (Metoprolol Succinate) 25 Mg Tab 12.5 Mg PO DAILY 11/21/17 Reported Warfarin Sodium 10 Mg Tab 10 Mg PO DAILY 11/21/17 Reported Farxiga (Dapagliflozin Propanediol) 10 Mg Tab 10 Mg PO DIRECTED 11/21/17 Reported Aspirin Chewable (Aspirin) 81 Mg Chew 162 Mg PO DAILY 08/18/17 Reported Preservision Areds 2 (Multiple Vitamins W/ Minerals) 1 Cap Cap 2 Cap PO DAILY 08/18/17 Reported Nitrostat (Nitroglycerin) 0.4 Mg Tab 0.4 Mg UT PRN 08/18/17 Reported Klor-Con Sprinkle (Potassium Chloride) 10 Meq Cap 20 Meq PO DAILY 08/18/17 Reported Glucotrol Xl (Glipizide) 10 Mg Tab 10 Mg PO QAM 08/18/17 Reported Combivent Respimat (Ipratropium-Albuterol) 1 Aer Aer 1 Puffs INH QID 08/18/17 Reported Januvia (Sitagliptin) 100 Mg Tab 100 Mg PO DAILY 08/18/17 Reported Furosemide 40 Mg Tab 40 Mg PO DAILY 07/02/16 Reported Lisinopril 2.5 Mg Tab 2.5 Mg PO DAILY 07/02/16 Reported Prilosec (Omeprazole) 20 Mg Cap 20 Mg PO DAILY 03/26/16 Reported Physical Exam Vital Signs (Last 8hrs): Last 8 Hrs Date Time Temp Pulse Resp B/P (MAP) Pulse Ox O2 Delivery O2 Flow Rate FiO2 11/21/17 14:50 36.5 55 18 151/83 (105) 96 Room Air 11/21/17 12:00 Room Air 11/21/17 11:32 36.5 54 20 139/86 (103) 95 Room Air 11/21/17 08:03 36.4 65 20 144/87 (106) 95 Room Air 11/21/17 08:00 Room Air General Appearance: Alert and Oriented x3. NAD. Head: Normocephalic Atraumatic. Eyes: PERRLA, EOMI, conjunctiva and sclera clear Neck: Supple. No carotid bruits noted. No JVD. No HJD. Respiratory: Breath sounds clear to auscultation bilaterally. No w/r/r. Cardiovascular: Reg rate and rhythm. 2/6 systolic murmur Abdomen: Normal bowel sounds, soft nontender. no abdominal bruits. Extremities: No edema, no clubbing or cyanosis. distal pulses 2/4 bilaterally. Neuro: No focal deficits. Psychiatric: Normal affect. Data Last Resulted 11/21/17 01:40 Red Blood Count 5.54, Mean Corpuscular Volume 90.6, Mean Corpuscular Hemoglobin 31.0, Mean Corpuscular Hemoglobin Concent 34.3, Mean Platelet Volume 9.8, Neutrophils (%) (Auto) 54.1, Lymphocytes (%) (Auto) 28.3, Monocytes (%) (Auto) 14.3, Eosinophils (%) (Auto) 2.9, Basophils (%) (Auto) 0.2, Neutrophils # (Auto ) 2.39, Lymphocytes # (Auto) 1.25, Monocytes # (Auto) 0.63, Eosinophils # (Auto ) 0.13, Basophils # (Auto) 0.01 Last Resulted 11/21/17 01:40 Past 24 Hours Test 11/21/17 01:40 11/21/17 06:53 11/21/17 13:05 Range/Units Prothromb Time International Ratio 1.8 H 0.9-1.1 Prothrombin Time 18.4 H 9.0-12.0 SECONDS Troponin I < 0.015 < 0.015 < 0.015 0-0.045 ng/ml BNP was low at 320 pg/ ml TSH 2.49. CT of the chest performed overnight last night: Radiology report describes suboptimal image quality, but no gross evidence primary embolism. Mosaic attenuation combined with a regular capacity and bronchial wall thickening in the right upper lobe suggestive developing bronchiolitis or pneumonitis A few small solid pulmonary nodules in the right middle lobe measuring 3 mm EKG and telemetry as outlined above Assessment & Plan Impression: 76-year-old male 1. Presented with chest tightness and findings of atrial fibrillation with rapid ventricular rate. Given his history of mild left ventricular systolic dysfunction and moderate aortic valve stenosis, he could certainly be symptomatic from an anginal standpoint with elevated heart rates. 2. Separate complaint of recent exertional fatigue 3. History of CABG 1 with ABRAMS to LAD, chronic mid LAD occlusion, patent graft in stable coronary arteries with the exception of 100% mid LAD occlusion on recent cardiac catheter[place] [facility] [place] for similar fatigue complaints 4. History of paroxysmal atrial fibrillation, clinical concern for borderline tachycardia bradycardia syndrome 5. Prostate carcinoma Plan: At present, I recommend repeating a resting transthoracic echocardiogram to reassess his aortic valve. His echocardiogram performed in March 2017 as an outpatient described a large apical, septal, anteroseptal, and apical inferior wall motion abnormality. This is consistent with his known LAD occlusion. The patient was found to have moderate aortic valve stenosis with a peak aortic valve continues with Doppler velocity of 2.9 m/s and mean gradient of 16 mmHg noted on echocardiogram at that time. In terms atrial fibrillation I recommend continuing his same outpatient metoprolol succinate dose of 12.5 mg daily. This appears to be his first recent significant atrial fibrillation episode of significance, and I do not think we need to barrera into a pacemaker for him, but this may be a consideration in the future to allow more aggressive education management with either increase in metoprolol dose, or even perhaps addition of sotalol, amiodarone, or dofetilide. I do not think we have to proceed with additional ischemic workup as he underwent invasive cardiac catheterization recently for the same complaints just a few months ago. Although the CT raises question for pneumonia, he does not have any infectious symptoms. Await echo results, further recommendations be forthcoming after that.
--- NOTE | 2017-11-21 17:25 | ECHOCARDIOGRAM REPORT ---
*NOTICE TO RECEIVING LIBERTARIAN AGENCY This information is strictly Confidential and protected under [place] law. [place] law prohibits you from making any further disclosure of this information unless further disclosure is expressly permitted by the written consent of the person to whom it pertains or is authorized by law. A general authorization for the release of medical or other information is not sufficient for this purpose. Hospital accepts no responsibility if the information is made available to any other person, INCLUDING THE PATIENT. Interpretation Summary * Name: PAULA DORSEY Study Date: 11/21/2017 03:46 PM BP: 151/83 mmHg * Patient Location: C.2T\S\S244\S\1 HR: 56 * : 1940 (M/d/yyyy) Gender: Male Height: 69 in * Age: 76 yrs Ethnicity: CA Weight: 218 lb * Ordering Physician: Paula Blanco * Referring Physician: Self, Referred * Performed By: Abena Funk RDCS * * Reason For Study: AORTIC STENOSIS * BSA: 2.1 m2 * The study was technically adequate. * -- Conclusions -- * Sinus bradycardia at 52- 57 bpm was present during the echocardiogram. * There is moderate concentric left ventricular hypertrophy in the tony with normal wall motion. * There is a large sized apical, septal, anteroseptal, and anterior wall motion abnormality with hypokinesis to akinesis of the segments. * The anteroseptal wall is thin and akinetic consistent with scar. * Left ventricular systolic function is mild to moderately reduced. * The LV Ejection Fraction = 35-40%. * The aortic valve is moderately calcified. * Moderate valvular aortic stenosis. * Grade I diastolic dysfunction, (abnormal relaxation pattern). * Comparedto the prior outpatient echocardiogram report from 03/2017, the wall motion abnormalities are stable and unchanged. * The moderate aortic valve stenosis is unchanged. * Compared to the images of the prior echocardiogram performed at [facility] dated 07/03/16, there anteroseptal scar is unchanged, however, there has been and interval subtle decline in the LV ejection fraction. Procedure Details * A contrast injection of Definity was performed to improve assessment of LV function. * Contrast was injected into an intravenous site in the left arm. * One vial of Definity ultrasound contrast was diluted in normal saline to a total volume of 10 ml. A total of '2' ml of solution was administered during imaging. * Lot # [id number] of Definity utilized for procedure. * Expiration date NOV 02. * The attending nurse who injected the contrast agent was ASHELY TODD. * A complete two-dimensional transthoracic echocardiogram was performed (2D, M-mode, Doppler and color flow Doppler). Left Ventricle * The left ventricle is normal in size. * There is moderate concentric left ventricular hypertrophy in the tony with normal wall motion. * Left ventricular systolic function is mild to moderately reduced. * Ejection Fraction = 35-40%. * There is a large sized apical, septal, anteroseptal, and anterior wall motion abnormality with hypokinesis to akinesis of the segments. The anteroseptal wall is thin and akinetic consistent with scar. Right Ventricle * The right ventricle is normal size. * The right ventricular systolic function is normal as assessed by tricuspid annular plane systolic excursion (TAPSE) (normal >1.5 cm). Atria * The left atrium is moderately dilated. * Right atrial size is normal. * There is no evidence of atrial septal defect, but resolution does not allow assessment for a patent foramen ovale. Mitral Valve * There is moderate mitral annular calcification. * There is no mitral valve stenosis. * Significant mitral regurgitation is absent. Tricuspid Valve * The tricuspid valve is normal. * There is no tricuspid stenosis. * Significant tricuspid regurgitation is absent. Aortic Valve * The aortic valve is trileaflet. * The aortic valve is moderately calcified. * Moderate valvular aortic stenosis. * There is no significant aortic regurgitation. Pulmonic Valve * The pulmonary valve is not well seen, but the Doppler examination is normal without significant regurgitation or stenosis. Great Vessels * The aortic root and proximal ascending aorta are normal sized. Pericardium/Pleural * There is no pericardial effusion. Great Vessels * Normal inferior vena cava diameter and respiratory variation suggests normal central venous pressure. Left Ventricular Diastolic Function * Grade I diastolic dysfunction, (abnormal relaxation pattern). MMode 2D Measurements and Calculations LA dimension 3.7 cm LVOT diam 2.0 cm LVOT area 3.0 cm\S\2 LVAd ap4 34.0 cm\S\2 LVLd ap4 8.5 cm EDV(MOD-sp4) 110.4 ml EDV(sp4-el) 115.9 ml LVAs ap4 21.3 cm\S\2 LVLs ap4 7.1 cm ESV(MOD-sp4) 54.0 ml ESV(sp4-el) 54.7 ml EF(MOD-sp4) 51.1 % EF(sp4-el) 52.8 % LVAd ap2 29.6 cm\S\2 LVLd ap2 8.4 cm EDV(MOD-sp2) 85.8 ml EDV(sp2-el) 88.1 ml LVAs ap2 19.7 cm\S\2 LVLs ap2 7.6 cm ESV(MOD-sp2) 44.5 ml ESV(sp2-el) 43.3 ml EF(MOD-sp2) 48.2 % EF(sp2-el) 50.8 % LVLd %diff -0.25 % EDV(MOD-bp) 99.3 ml LVLs %diff 7.0 % ESV(MOD-bp) 49.8 ml EF(MOD-bp) 49.9 % SV(MOD-sp4) 56.4 ml SI(MOD-sp4) 26.3 ml/m\S\2 SV(MOD-sp2) 41.4 ml SI(MOD-sp2) 19.3 ml/m\S\2 SV(MOD-bp) 49.5 ml SI(MOD-bp) 23.1 ml/m\S\2 SV(sp4-el) 61.2 ml SI(sp4-el) 28.6 ml/m\S\2 SV(sp2-el) 44.7 ml SI(sp2-el) 20.9 ml/m\S\2 Doppler Measurements and Calculations MV E max erik 82.9 cm/sec MV A max erik 97.5 cm/sec MV E/A 0.85 MV dec time 0.23 sec Ao V2 max 234.7 cm/sec Ao max PG 22.0 mmHg Ao max PG (full) 17.0 mmHg Ao V2 mean 160.8 cm/sec Ao mean PG 11.5 mmHg Ao mean PG (full) 9.0 mmHg Ao V2 VTI 50.7 cm JUSTIN(I,A) 1.5 cm\S\2 JUSTIN(I,D) 1.5 cm\S\2 JUSTIN(V,A) 1.4 cm\S\2 JUSTIN(V,D) 1.4 cm\S\2 LV V1 max PG 5.0 mmHg LV V1 mean PG 2.5 mmHg LV V1 max 111.6 cm/sec LV V1 mean 74.0 cm/sec LV V1 VTI 24.8 cm SV(LVOT) 74.0 ml SI(LVOT) 34.5 ml/m\S\2
--- NOTE | 2017-11-21 17:48 | Progress Note ---
Internal Med Progress Note Date of Service: Nov 21, 2017. Provider Documentation: SUBJECTIVE: Patient was seen and examined at bedside. Heart rate within normal limits. Denies chest pain. No shortness of breath. OBJECTIVE: Exam: General Appearance: no apparent distress Head: normocephalic, atraumatic Eyes: normal inspection, sclerae normal ENT: hearing grossly normal, pharynx normal Neck: supple, no adenopathy, no JVD, trachea midline Respiratory/Chest: chest non-tender, lungs clear, normal breath sounds, no respiratory distress, no accessory muscle use Cardiovascular: regular rate, rhythm, no edema, no gallop, no JVD, no murmur, normal peripheral pulses Abdomen/GI: normal bowel sounds, non tender, soft Back: normal inspection Extremities/Musculoskelatal: normal inspection, normal capillary refill, normal range of motion Neurologic/Psych: alert, normal mood/affect, oriented x 3 ASSESSMENT & PLAN: 76-year-old male Presented with chest tightness and findings of atrial fibrillation with rapid ventricular rate which resolved after Diltiazem and Metoprolol and patient returned to sinus rhythm. Troponins negative x 3. Symptoms resolved HOSPITAL IMAGING CTA of Chest 11/21/17 1. Allowing for suboptimal image quality, no evidence of pulmonary embolus. 2. Mosaic attenuation combined with limited irregular opacity and bronchial wall thickening all within the right upper lobe suggests developing bronchiolitis or pneumonitis, most likely infectious. 3. Few small solid pulmonary nodules in the right middle lobe measuring up to 3 mm. Follow-up per Dulce Society 2017 recommendations below. These could represent unencapsulated pulmonary lymphoid tissue. 4. 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 5. Hepatic steatosis. The report will be called/faxed according to standard departmental protocol. Please refer to below summary of Fleischner Society 2017 recommendations for follow-up of incidental CT nodules (H Luke, et al. Guidelines for management of incidental pulmonary nodules detected on CT images: From the Fleischner Society 2017. Radiology 2017; 284: 228-243.) SOLID NODULES Single nodule; size < 6 mm * Low risk patients: No routine follow-up * High risk patients: Optional CT at 12 months Single nodule; size 6-8 mm * Low risk patients: CT at 6-12 months, then consider CT at 18-24 months * High risk patients: CT at 6-12 months, then at 18-24 months Single nodule; size > 8 mm * Either low or high risk patients: Considered CT at 3 months, PET/CT, or tissue sampling Multiple nodules; size < 6 mm * Low risk patients: No routine follow up * High risk patients: Optional CT at 12 months Multiple nodules; size 6-8 mm * Low risk patients: CT at 3-6 months, then consider CT at 18-24 months * High risk patients: CT at 3-6 months, then at 18-24 months Multiple nodules; size > 8 mm * Low risk patients: CT at 3-6 months, then consider at 18-24 months * High risk patients: CT at 3-6 months, then at 18-24 months Note: These guidelines apply to incidental nodules. These guidelines do not apply to patients younger than 35 years, immunocompromised patients, or patients with cancer. * Low risk patients: Minimal or absent history of smoking and/or other known risk factors * High risk patients: History of smoking, exposure to other carcinogens, emphysema, fibrosis, upper lobe location, family history of lung cancer, etc. * If a nodule up to 8 mm is partly solid or is ground glass, further follow-up is required after 24 months to exclude possible slow growing adenocarcinoma. SUBSOLID NODULES Single ground-glass nodule * Nodule size < 6 mm: No routine follow-up * Nodule size > or = 6 mm: CT at 6-12 months to confirm persistence, then CT every 2 years until 5 years Single part-solid nodule * Nodule size < 6 mm: No routine follow-up * Nodules size > or = 6 mm: CT at 3-6 months to confirm persistence. If unchanged and solid component remains < 6 mm, annual CT should be performed for 5 years Multiple nodules * Nodule size < 6 mm: CT at 3-6 months. If stable, consider CT at 2 and 4 years. * Nodules size > or = 6 mm: CT at 3-6 months. Subsequent management based on the most suspicious nodule(s) Transthoracic echocardiogram 11/21/17 * Sinus bradycardia at 52- 57 bpm was present during the echocardiogram. * There is moderate concentric left ventricular hypertrophy in the tony with normal wall motion. * There is a large sized apical, septal, anteroseptal, and anterior wall motion abnormality with hypokinesis to akinesis of the segments. * The anteroseptal wall is thin and akinetic consistent with scar. * Left ventricular systolic function is mild to moderately reduced. * The LV Ejection Fraction = 35-40%. * The aortic valve is moderately calcified. * Moderate valvular aortic stenosis. * Grade I diastolic dysfunction, (abnormal relaxation pattern). * Comparedto the prior outpatient echocardiogram report from 03/2017, the wall motion abnormalities are stable and unchanged. * The moderate aortic valve stenosis is unchanged. * Compared to the images of the prior echocardiogram performed at [facility] dated 07/03/16, there anteroseptal scar is unchanged, however, there has been and interval subtle decline in the LV ejection fraction. Cardiology evaluation as per Dr. Blanco "Subtle decline in overall LVEF since 2015 when he had a complex series of cardiac interventions from 03/2016 to 05/2016 with complex PCI to mid LAD at [facility] followed by acute anterior STEMI with acute LAD PCI and then CABG. Pt with echo findings of LAD territory scar, mild to moderate LV systolic dysfunction. No evidence of volume overload. Regarding his presenting chest tightness, this was in setting of AF , RVR and was first significant episode since 03/2016. He has borderline tachycardia bradycardia syndrome. I see no acute indication for pacemaker at present, but if he has recurrent AF, would have low threshold for future pacemaker and more aggressive AV gregory blockers or antiarrhythmic therapy. Regarding other exertional SOB. I think his volume status is optimized. Had recent cath a few moths ago for same complaints with stable findings. Stable from my standpoint for discharge." DISCHARGE INSTRUCTIONS Patient is to be discharged to home. No changes in current home medications. If patient experiences acute chest pain, palpitations, or severe shortness of breath, pleas return to the emergency room Follow up appointment 11/26/2017 12:00 PM Justa Lebron DO [facility] 12/04/2017 8:15 AM [facility] [place] Patient to follow with Cardiology service, Dr. Blanco has requested appointment follow up for 1 to 3 weeks Please call [phone] for further scheduling with [facility] clinics Vital Signs: Date Time Temp Pulse Resp B/P (MAP) Pulse Ox O2 Delivery O2 Flow Rate FiO2 11/21/17 17:58 36.5 55 18 96 Room Air 11/21/17 16:00 Room Air 11/21/17 14:50 36.5 55 18 151/83 (105) 96 Room Air 11/21/17 12:00 Room Air 11/21/17 11:32 36.5 54 20 139/86 (103) 95 Room Air 11/21/17 08:03 36.4 65 20 144/87 (106) 95 Room Air 11/21/17 08:00 Room Air 11/21/17 06:05 36.5 62 19 138/89 94 Room Air 11/21/17 05:49 68 20 132/73 98 11/21/17 04:50 91 20 96 Room Air 11/21/17 04:38 65 18 94 Room Air 11/21/17 04:30 110/64 11/21/17 04:08 63 12 11/21/17 04:00 122/67 11/21/17 03:30 110/69 11/21/17 03:08 79 18 93 11/21/17 03:03 117/76 11/21/17 02:52 75 11/21/17 02:43 71 16 94 Room Air 11/21/17 02:13 78 16 91 11/21/17 01:58 93 Room Air 11/21/17 01:54 128 11/21/17 01:52 122/84 11/21/17 01:50 36.8 116 18 122/84 93 Room Air Lab Results: Results Past 24 Hours Test 11/21/17 01:40 11/21/17 02:52 11/21/17 06:53 11/21/17 11:30 Range/Units White Blood Count 4.42 4.8-10.8 K/uL Red Blood Count 5.54 4.7-6.1 M/uL Hemoglobin 17.2 14.0-18.0 g/dL Hematocrit 50.2 42-52 % Mean Corpuscular Volume 90.6 80-100 fL Mean Corpuscular Hemoglobin 31.0 25-34 pg Mean Corpuscular Hemoglobin Concent 34.3 32-36 g/dl Platelet Count 108 130-400 K/uL Mean Platelet Volume 9.8 7.4-10.4 fL Neutrophils (%) (Auto) 54.1 % Lymphocytes (%) (Auto) 28.3 % Monocytes (%) (Auto) 14.3 % Eosinophils (%) (Auto) 2.9 % Basophils (%) (Auto) 0.2 % Neutrophils # (Auto) 2.39 1.4-6.5 K/uL Lymphocytes # (Auto) 1.25 1.2-3.4 K/uL Monocytes # (Auto) 0.63 0.11-0.59 K/uL Eosinophils # (Auto) 0.13 0-0.5 K/uL Basophils # (Auto) 0.01 0-0.2 K/uL RDW Standard Deviation 45.5 36.4-46.3 fL RDW Coefficient of Variation 13.7 11.5-14.5 % Immature Granulocyte % (Auto) 0.2 % Immature Granulocyte # (Auto) 0.01 0.00-0.02 K/uL Prothrombin Time 18.4 9.0-12.0 SECONDS Prothromb Time International Ratio 1.8 0.9-1.1 Sodium Level 136 136-145 mmol/L Potassium Level 3.8 3.5-5.1 mmol/L Chloride Level 104 98-107 mmol/L Carbon Dioxide Level 26 21-32 mmol/L Anion Gap 6.0 3-11 mmol/L Blood Urea Nitrogen 21 7-18 mg/dl Creatinine 0.96 0.60-1.40 mg/dl Est Creatinine Clear Calc Drug Dose 77.6 ml/min Estimated GFR () 88.0 Estimated GFR (Non- 75.9 BUN/Creatinine Ratio 22.2 10-20 Random Glucose 145 70-99 mg/dl Calcium Level 8.6 8.5-10.1 mg/dl Magnesium Level 2.1 1.8-2.4 mg/dl Total Bilirubin 0.5 0.2-1 mg/dl Aspartate Amino Transf (AST/SGOT) 36 15-37 U/L Alanine Aminotransferase (ALT/SGPT) 46 12-78 U/L Alkaline Phosphatase 83 45-117 U/L Troponin I < 0.015 < 0.015 0-0.045 ng/ml Pro-B-Type Natriuretic Peptide 320 0-1800 pg/ml Total Protein 8.1 6.4-8.2 gm/dl Albumin 4.0 3.4-5.0 gm/dl Globulin 4.1 2.5-4.0 gm/dl Albumin/Globulin Ratio 1.0 0.9-2 Lipase 166 73-393 U/L Thyroid Stimulating Hormone (TSH) 2.490 0.300-4.500 uIu/ml Urine Color YELLOW Urine Appearance CLOUDY CLEAR Urine pH 5.0 4.5-7.5 Urine Specific [place] 1.017 1.000-1.030 Urine Protein TRACE NEG Urine Glucose (UA) 3+ NEG Urine Ketones NEG NEG Urine Occult Blood 3+ NEG Urine Nitrite NEG NEG Urine Bilirubin NEG NEG Urine Urobilinogen NEG NEG Urine Leukocyte Esterase NEG NEG Urine WBC (Auto) 0 0-5 /hpf Urine RBC (Auto) 10-30 0-4 /hpf Urine Hyaline Casts (Auto) 1-5 0-5 /lpf Urine Epithelial Cells (Auto) 0-5 0-5 /lpf Urine Bacteria (Auto) NEG NEG Bedside Glucose 84 70-99 mg/dl Test 11/21/17 13:05 11/21/17 16:17 Range/Units Troponin I < 0.015 0-0.045 ng/ml Bedside Glucose 85 70-99 mg/dl Microbiology Results 11/21/17 C.difficile Toxin B Gene (PCR) - Final, Complete No C. difficile toxin B gene detected 11/21/17 WBC Smear, Received Pending 11/21/17 Shiga Toxin Test, Received Pending 11/21/17 Stool Culture, Received Pending
--- NOTE | 2017-11-21 17:48 | Cardiology Progress Note ---
Cardiology Progress Note Date of Service Nov 21, 2017. Cardiology Progress Note Echo reviewed: Sinus bradycardia at 52- 57 bpm was present during the echocardiogram. There is moderate concentric left ventricular hypertrophy in the tony with normal wall motion. There is a large sized apical, septal, anteroseptal, and anterior wall motion abnormality with hypokinesis to akinesis of the segments. The anteroseptal wall is thin and akinetic consistent with scar. Left ventricular systolic function is mild to moderately reduced. The LV Ejection Fraction = 35-40%. The aortic valve is moderately calcified. Moderate valvular aortic stenosis. Grade I diastolic dysfunction, (abnormal relaxation pattern). Comparedto the prior outpatient echocardiogram report from 03/2017, the wall motion abnormalities are stable and unchanged. The moderate aortic valve stenosis is unchanged. Compared to the images of the prior echocardiogram performed at [facility] dated , there anteroseptal scar is unchanged, however, there has been and interval subtle decline in the LV ejection fraction. Impression: Subtle decline in overall LVEF since 2016 when he had a complex series of cardiac interventions from 03/2016 to 05/2016 with complex PCI to mid LAD at [facility] followed by acute anterior STEMI with acute LAD PCI and then CABG. Pt with echo findings of LAD territory scar, mild to moderate LV systolic dysfunction. No evidence of volume overload. Regarding his presenting chest tightness, this was in setting of AF , RVR and was first significant episode since 03/2016. He has borderline tachycardia bradycardia syndrome. I see no acute indication for pacemaker at present, but if he has recurrent AF, would have low threshold for future pacemaker and more aggressive AV gregory blockers or antiarrhythmic therapy. Regarding other exertional SOB. I think his volume status is optimized. Had recent cath a few moths ago for same complaints with stable findings. Stable from my standpoint for discharge. Outpt cardiology clinic follow up requested for 1-3 weeks- I contacted office with [employer] encounter.
[2017-11-21 17:58] VITALS: BP 151/83; PULSE 55; TEMP 36.5; O2SAT 96
--- NOTE | 2017-11-21 18:12 | Discharge Instructions ---
Discharge Instructions Date of Service Nov 21, 2017. Admission Reason for Admission: Chest Pain Discharge Discharge Diagnosis / Problem: atrial fibrillation with rapid ventricular rate Discharge Goals Goal(s): Decrease discomfort, Improve function, Improve disease control Activity Recommendations Activity Limitations: per Instructions/Follow-up section Shower/Bathe: no limitations . Instructions / Follow-Up Instructions / Follow-Up 76-year-old male Presented with chest tightness and findings of atrial fibrillation with rapid ventricular rate which resolved after Diltiazem and Metoprolol and patient returned to sinus rhythm. Troponins negative x 3. Symptoms resolved HOSPITAL IMAGING CTA of Chest 11/21/17 1. Allowing for suboptimal image quality, no evidence of pulmonary embolus. 2. Mosaic attenuation combined with limited irregular opacity and bronchial wall thickening all within the right upper lobe suggests developing bronchiolitis or pneumonitis, most likely infectious. 3. Few small solid pulmonary nodules in the right middle lobe measuring up to 3 mm. Follow-up per Dulce Society 2017 recommendations below. These could represent unencapsulated pulmonary lymphoid tissue. 4. 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 5. Hepatic steatosis. The report will be called/faxed according to standard departmental protocol. Please refer to below summary of Fleischner Society 2017 recommendations for follow-up of incidental CT nodules (H Luke, et al. Guidelines for management of incidental pulmonary nodules detected on CT images: From the Fleischner Society 2017. Radiology 2017; 284: 228-243.) SOLID NODULES Single nodule; size < 6 mm * Low risk patients: No routine follow-up * High risk patients: Optional CT at 12 months Single nodule; size 6-8 mm * Low risk patients: CT at 6-12 months, then consider CT at 18-24 months * High risk patients: CT at 6-12 months, then at 18-24 months Single nodule; size > 8 mm * Either low or high risk patients: Considered CT at 3 months, PET/CT, or tissue sampling Multiple nodules; size < 6 mm * Low risk patients: No routine follow up * High risk patients: Optional CT at 12 months Multiple nodules; size 6-8 mm * Low risk patients: CT at 3-6 months, then consider CT at 18-24 months * High risk patients: CT at 3-6 months, then at 18-24 months Multiple nodules; size > 8 mm * Low risk patients: CT at 3-6 months, then consider at 18-24 months * High risk patients: CT at 3-6 months, then at 18-24 months Note: These guidelines apply to incidental nodules. These guidelines do not apply to patients younger than 35 years, immunocompromised patients, or patients with cancer. * Low risk patients: Minimal or absent history of smoking and/or other known risk factors * High risk patients: History of smoking, exposure to other carcinogens, emphysema, fibrosis, upper lobe location, family history of lung cancer, etc. * If a nodule up to 8 mm is partly solid or is ground glass, further follow-up is required after 24 months to exclude possible slow growing adenocarcinoma. SUBSOLID NODULES Single ground-glass nodule * Nodule size < 6 mm: No routine follow-up * Nodule size > or = 6 mm: CT at 6-12 months to confirm persistence, then CT every 2 years until 5 years Single part-solid nodule * Nodule size < 6 mm: No routine follow-up * Nodules size > or = 6 mm: CT at 3-6 months to confirm persistence. If unchanged and solid component remains < 6 mm, annual CT should be performed for 5 years Multiple nodules * Nodule size < 6 mm: CT at 3-6 months. If stable, consider CT at 2 and 4 years. * Nodules size > or = 6 mm: CT at 3-6 months. Subsequent management based on the most suspicious nodule(s) Transthoracic echocardiogram 11/21/17 * Sinus bradycardia at 52- 57 bpm was present during the echocardiogram. * There is moderate concentric left ventricular hypertrophy in the tony with normal wall motion. * There is a large sized apical, septal, anteroseptal, and anterior wall motion abnormality with hypokinesis to akinesis of the segments. * The anteroseptal wall is thin and akinetic consistent with scar. * Left ventricular systolic function is mild to moderately reduced. * The LV Ejection Fraction = 35-40%. * The aortic valve is moderately calcified. * Moderate valvular aortic stenosis. * Grade I diastolic dysfunction, (abnormal relaxation pattern). * Comparedto the prior outpatient echocardiogram report from 03/2017, the wall motion abnormalities are stable and unchanged. * The moderate aortic valve stenosis is unchanged. * Compared to the images of the prior echocardiogram performed at [facility] dated 07/03/16, there anteroseptal scar is unchanged, however, there has been and interval subtle decline in the LV ejection fraction. Cardiology evaluation as per Dr. Blanco "Subtle decline in overall LVEF since 2016 when he had a complex series of cardiac interventions from 03/2016 to 05/2016 with complex PCI to mid L[place] [facility] [place] followed by acute anterior STEMI with acute LAD PCI and then CABG. Pt with echo findings of LAD territory scar, mild to moderate LV systolic dysfunction. No evidence of volume overload. Regarding his presenting chest tightness, this was in setting of AF , RVR and was first significant episode since 03/2016. He has borderline tachycardia bradycardia syndrome. I see no acute indication for pacemaker at present, but if he has recurrent AF, would have low threshold for future pacemaker and more aggressive AV gregory blockers or antiarrhythmic therapy. Regarding other exertional SOB. I think his volume status is optimized. Had recent cath a few moths ago for same complaints with stable findings. Stable from my standpoint for discharge." DISCHARGE INSTRUCTIONS Patient is to be discharged to home. No changes in current home medications. If patient experiences acute chest pain, palpitations, or severe shortness of breath, pleas return to the emergency room Follow up appointment 11/26/2017 12:00 PM Justa Lebron DO [facility] 12/04/2017 8:15 AM [facility] [place] [facility], [place] Patient to follow with Cardiology service, Dr. Blanco has requested appointment follow up for 1 to 3 weeks Please call [phone] for further scheduling with [facility] [address] [facility] clinics Current Hospital Diet Patient's current hospital diet: Diabetes Type 2 Diet, AHA Diet (Heart Healthy) Discharge Diet Recommended Diet: AHA Diet (Heart Healthy), Diabetes Type 2 Diet Pending Studies Studies pending at discharge: no Laboratory Results 11/21/17 01:40 Red Blood Count 5.54, Mean Corpuscular Volume 90.6, Mean Corpuscular Hemoglobin 31.0, Mean Corpuscular Hemoglobin Concent 34.3, Mean Platelet Volume 9.8, Neutrophils (%) (Auto) 54.1, Lymphocytes (%) (Auto) 28.3, Monocytes (%) (Auto) 14.3, Eosinophils (%) (Auto) 2.9, Basophils (%) (Auto) 0.2, Neutrophils # (Auto ) 2.39, Lymphocytes # (Auto) 1.25, Monocytes # (Auto) 0.63, Eosinophils # (Auto ) 0.13, Basophils # (Auto) 0.01 11/21/17 01:40 Test 11/21/17 01:40 11/21/17 02:52 11/21/17 13:05 11/21/17 16:17 White Blood Count 4.42 K/uL (4.8-10.8) Red Blood Count 5.54 M/uL (4.7-6.1) Hemoglobin 17.2 g/dL (14.0-18.0) Hematocrit 50.2 % (42-52) Mean Corpuscular Volume 90.6 fL (80-100) Mean Corpuscular Hemoglobin 31.0 pg (25-34) Mean Corpuscular Hemoglobin Concent 34.3 g/dl (32-36) Platelet Count 108 K/uL (130-400) Mean Platelet Volume 9.8 fL (7.4-10.4) Neutrophils (%) (Auto) 54.1 % Lymphocytes (%) (Auto) 28.3 % Monocytes (%) (Auto) 14.3 % Eosinophils (%) (Auto) 2.9 % Basophils (%) (Auto) 0.2 % Neutrophils # (Auto) 2.39 K/uL (1.4-6.5) Lymphocytes # (Auto) 1.25 K/uL (1.2-3.4) Monocytes # (Auto) 0.63 K/uL (0.11-0.59) Eosinophils # (Auto) 0.13 K/uL (0-0.5) Basophils # (Auto) 0.01 K/uL (0-0.2) RDW Standard Deviation 45.5 fL (36.4-46.3) RDW Coefficient of Variation 13.7 % (11.5-14.5) Immature Granulocyte % (Auto) 0.2 % Immature Granulocyte # (Auto) 0.01 K/uL (0.00-0.02) Prothrombin Time 18.4 SECONDS (9.0-12.0) Prothromb Time International Ratio 1.8 (0.9-1.1) Anion Gap 6.0 mmol/L (3-11) Est Creatinine Clear Calc Drug Dose 77.6 ml/min Estimated GFR () 88.0 Estimated GFR (Non- 75.9 BUN/Creatinine Ratio 22.2 (10-20) Calcium Level 8.6 mg/dl (8.5-10.1) Magnesium Level 2.1 mg/dl (1.8-2.4) Total Bilirubin 0.5 mg/dl (0.2-1) Aspartate Amino Transf (AST/SGOT) 36 U/L (15-37) Alanine Aminotransferase (ALT/SGPT) 46 U/L (12-78) Alkaline Phosphatase 83 U/L (45-117) Pro-B-Type Natriuretic Peptide 320 pg/ml (0-1800) Total Protein 8.1 gm/dl (6.4-8.2) Albumin 4.0 gm/dl (3.4-5.0) Globulin 4.1 gm/dl (2.5-4.0) Albumin/Globulin Ratio 1.0 (0.9-2) Lipase 166 U/L (73-393) Thyroid Stimulating Hormone (TSH) 2.490 uIu/ml (0.300-4.500) Urine Color YELLOW Urine Appearance CLOUDY (CLEAR) Urine pH 5.0 (4.5-7.5) Urine Specific [place] 1.017 (1.000-1.030) Urine Protein TRACE (NEG) Urine Glucose (UA) 3+ (NEG) Urine Ketones NEG (NEG) Urine Occult Blood 3+ (NEG) Urine Nitrite NEG (NEG) Urine Bilirubin NEG (NEG) Urine Urobilinogen NEG (NEG) Urine Leukocyte Esterase NEG (NEG) Urine WBC (Auto) 0 /hpf (0-5) Urine RBC (Auto) 10-30 /hpf (0-4) Urine Hyaline Casts (Auto) 1-5 /lpf (0-5) Urine Epithelial Cells (Auto) 0-5 /lpf (0-5) Urine Bacteria (Auto) NEG (NEG) Troponin I < 0.015 ng/ml (0-0.045) Bedside Glucose 85 mg/dl (70-99) Date/Time Source Procedure Growth Status 11/21/17 14:46 Stool C.difficile Toxin B Gene (PCR) - Final No C. difficile toxin B gene detected Complete Medical Emergencies . Who to Call and When: Medical Emergencies: If at any time you feel your situation is an emergency, please call 911 immediately. . Non-Emergent Contact Non-Emergency issues call your: Primary Care Provider, Fermentologist Call Non-Emergent contact if: you have any medication questions . . "Provider Documentation" section prepared by Josesito Thorne. . VTE Core Measure Inpt VTE Proph given/why not?: Warfarin (Coumadin)
--- NOTE | 2017-11-21 18:13 | Discharge Summary ---
Discharge Summary Date of Service Nov 21, 2017. Discharge Summary Admission Date: Nov 21, 2017 at 05:26 Discharge Date: Nov 21, 2017 Principal Diagnosis: atrial fibrillation with RVR, pulmonary nodules, chest pain, on coumadin Medication Reconciliation Continued Medications: Aspirin (Aspirin Chewable) 81 Mg Chew 162 MG PO DAILY Dapagliflozin Propanediol (Farxiga) 10 Mg Tab 10 MG PO DIRECTED Fish Oil ([place]-3) 1 Ea Cap 1200 MG PO BID, CAP Furosemide (Furosemide) 40 Mg Tab 40 MG PO DAILY, #30 Glipizide Xl (Glucotrol Xl) 10 Mg Tab 10 MG PO QAM, TAB Glucosamine-Chondroitin (Glucosamine Chondroitin C) 1 Cap Cap 1500 MG PO BID Ipratropium-Albuterol (Combivent Respimat) 1 Aer Aer 1 PUFFS INH QID, INH Lisinopril (Lisinopril) 2.5 Mg Tab 2.5 MG PO DAILY, #30 Metoprolol Succinate (Toprol Xl) 25 Mg Tab 12.5 MG PO DAILY, #30 TAB Multiple Vitamins W/ Minerals (Preservision Areds 2) 1 Cap Cap 2 CAP PO DAILY Nitroglycerin (Nitrostat) 0.4 Mg Tab 0.4 MG UT PRN, BTL Omeprazole (Prilosec) 20 Mg Cap 20 MG PO DAILY, #30 Potassium Chloride (Klor-Con Sprinkle) 10 Meq Cap 20 MEQ PO DAILY Sitagliptin (Januvia) 100 Mg Tab 100 MG PO DAILY Warfarin Sodium (Warfarin Sodium) 10 Mg Tab 10 MG PO DAILY Admission Information HPI (per Admitting provider): 76 yo M presents via EMS initially for chest pressure in the setting of rapid afib found at home to have a HR of 143. He was started on Cardizem in the field and given ASA. He was still in afib with RVR with a rate of 130s on his arrival to the ER, so a cardizem drip was ordered. However, the patient ambulated to the bathroom and spontaneously converted to sinus rhythm. He was recently diagnosed with prostate cancer after biopsies taken in early October and a CT scan with contrast was performed two days ago. After drinking the contrast, he has noted excessive diarrhea and dyspnea with exertion. Although the GILBERT was present, there was no chest pain until today which came on as a "pressure" waking him from sleep this evening around 0100. He had some associated SOB but denies diaphoresis, lightheadedness, nausea, tingling or other symptoms. He has a h/o PAF and is on coumadin. As his INR was 1.8 he underwent a CTA with no presence of PE. His chest pain resolved when he converted to sinus rhythm. He does report a lack of appetite and hasn't been eating well or staying hydrated in the presence of the diarrhea. He denies recent antibiotic use. He reports that this is not similar to his index angina. He has a h/o CAD s/p one BMS to mid LAD in May 2016 and subsequent CABG x 1V later that same month. He also has a h/o aortic stenosis, ischemic cardiomyopathy with an EF 45 %, PVD, AL on CPAP, HTN, and DMII. He was recently seen by Cardiology who had him on Toprol XL 12.5mg, however, he thinks he ran out of this and has not been taking it for several weeks. Physical Exam (per Admitting): General Appearance: WD/WN, no apparent distress Head: normocephalic, atraumatic Eyes: normal inspection, PERRL, sclerae normal ENT: hearing grossly normal, pharynx normal Neck: supple, no adenopathy, no JVD, trachea midline Respiratory/Chest: chest non-tender, lungs clear, normal breath sounds, no respiratory distress, no accessory muscle use Cardiovascular: regular rate, rhythm, no edema, no gallop, no JVD, no murmur , normal peripheral pulses Abdomen/GI: normal bowel sounds, non tender, soft Back: normal inspection Extremities/Musculoskelatal: normal inspection, normal capillary refill, normal range of motion 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 Troponins negative x 3. Symptoms resolved HOSPITAL IMAGING CTA of Chest 2 1. Allowing for suboptimal image quality, no evidence of pulmonary embolus. 2. Mosaic attenuation combined with limited irregular opacity and bronchial wall thickening all within the right upper lobe suggests developing bronchiolitis or pneumonitis, most likely infectious. 3. Few small solid pulmonary nodules in the right middle lobe measuring up to 3 mm. Follow-up per [place] Society 2017 recommendations below. These could represent unencapsulated pulmonary lymphoid tissue. 4. 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 5. Hepatic steatosis. The report will be called/faxed according to standard departmental protocol. Please refer to below summary of Fleischner Society 2017 recommendations for follow-up of incidental CT nodules (Arslan Butler et al. Guidelines for management of incidental pulmonary nodules detected on CT images: From the Fleischner Society 2017. Radiology 2017; 284: 228-243.) SOLID NODULES Single nodule; size < 6 mm * Low risk patients: No routine follow-up * High risk patients: Optional CT at 12 months Single nodule; size 6-8 mm * Low risk patients: CT at 6-12 months, then consider CT at 18-24 months * High risk patients: CT at 6-12 months, then at 18-24 months Single nodule; size > 8 mm * Either low or high risk patients: Considered CT at 3 months, PET/CT, or tissue sampling Multiple nodules; size < 6 mm * Low risk patients: No routine follow up * High risk patients: Optional CT at 12 months Multiple nodules; size 6-8 mm * Low risk patients: CT at 3-6 months, then consider CT at 18-24 months * High risk patients: CT at 3-6 months, then at 18-24 months Multiple nodules; size > 8 mm * Low risk patients: CT at 3-6 months, then consider at 18-24 months * High risk patients: CT at 3-6 months, then at 18-24 months Note: These guidelines apply to incidental nodules. These guidelines do not apply to patients younger than 35 years, immunocompromised patients, or patients with cancer. * Low risk patients: Minimal or absent history of smoking and/or other known risk factors * High risk patients: History of smoking, exposure to other carcinogens, emphysema, fibrosis, upper lobe location, family history of lung cancer, etc. * If a nodule up to 8 mm is partly solid or is ground glass, further follow-up is required after 24 months to exclude possible slow growing adenocarcinoma. SUBSOLID NODULES Single ground-glass nodule * Nodule size < 6 mm: No routine follow-up * Nodule size > or = 6 mm: CT at 6-12 months to confirm persistence, then CT every 2 years until 5 years Single part-solid nodule * Nodule size < 6 mm: No routine follow-up * Nodules size > or = 6 mm: CT at 3-6 months to confirm persistence. If unchanged and solid component remains < 6 mm, annual CT should be performed for 5 years Multiple nodules * Nodule size < 6 mm: CT at 3-6 months. If stable, consider CT at 2 and 4 years. * Nodules size > or = 6 mm: CT at 3-6 months. Subsequent management based on the most suspicious nodule(s) Transthoracic echocardiogram 11/21/17 * Sinus bradycardia at 52- 57 bpm was present during the echocardiogram. * There is moderate concentric left ventricular hypertrophy in the tony with normal wall motion. * There is a large sized apical, septal, anteroseptal, and anterior wall motion abnormality with hypokinesis to akinesis of the segments. * The anteroseptal wall is thin and akinetic consistent with scar. * Left ventricular systolic function is mild to moderately reduced. * The LV Ejection Fraction = 35-40%. * The aortic valve is moderately calcified. * Moderate valvular aortic stenosis. * Grade I diastolic dysfunction, (abnormal relaxation pattern). * Comparedto the prior outpatient echocardiogram report from 03/2017, the wall motion abnormalities are stable and unchanged. * The moderate aortic valve stenosis is unchanged. * Compared to the images of the prior echocardiogram performed at [facility] dated 07/03/16, there anteroseptal scar is unchanged, however, there has been and interval subtle decline in the LV ejection fraction. Cardiology evaluation as per Dr. Blanco "Subtle decline in overall LVEF since 2016 when he had a complex series of cardiac interventions from 03/2016 to 05/2016 with complex PCI to mid LAD at [facility] followed by acute anterior STEMI with acute LAD PCI and then CABG. Pt with echo findings of LAD territory scar, mild to moderate LV systolic dysfunction. No evidence of volume overload. Regarding his presenting chest tightness, this was in setting of AF , RVR and was first significant episode since 03/2016. He has borderline tachycardia bradycardia syndrome. I see no acute indication for pacemaker at present, but if he has recurrent AF, would have low threshold for future pacemaker and more aggressive AV gregory blockers or antiarrhythmic therapy. Regarding other exertional SOB. I think his volume status is optimized. Had recent cath a few moths ago for same complaints with stable findings. Stable from my standpoint for discharge." DISCHARGE INSTRUCTIONS Patient is to be discharged to home. No changes in current home medications. If patient experiences acute chest pain, palpitations, or severe shortness of breath, malia return to the emergency room Follow up appointment 11/26/2017 12:00 PM Justa Lebron DO [facility] 12/04/2017 8:15 AM [facility] [place] Patient to follow with Cardiology service, Dr. Blanco has requested appointment follow up for 1 to 3 weeks Please call [phone] for further scheduling with [facility] clinics Total time spent on discharge = 60 minutes This includes examination of the patient, discharge planning, medication reconciliation, and communication with other providers. Discharge Instructions see above
[2017-11-21] MEDS ORDERED: INSULIN GLARGINE SOLOSTAR 100 UNITS/ML 3 ML PEN SC SCH (21:00)
== END 2017-11-21 18:30 | disposition home or self-care (01) ==
LOC: EDBD 01:43 → C.EDB 01:46 → C.2T 05:26
PROVIDERS: ADMIT Hospitalist; ATTEND Hospitalist
DX: I48.0 Paroxysmal atrial fibrillation (principal); R91.8 Other nonspecific abnormal finding of lung field; R06.02 Shortness of breath; J45.909 Unspecified asthma, uncomplicated; E78.5 Hyperlipidemia, unspecified; I10 Essential (primary) hypertension; G47.33 Obstructive sleep apnea (adult) (pediatric); E11.9 Type 2 diabetes mellitus without complications; I25.10 Atherosclerotic heart disease of native coronary artery without angina pectoris; C61 Malignant neoplasm of prostate; Z79.82 Long term (current) use of aspirin; Z82.49 Family history of ischemic heart disease and other diseases of the circulatory system; Z87.891 Personal history of nicotine dependence; Z83.3 Family history of diabetes mellitus; Z90.49 Acquired absence of other specified parts of digestive tract; Z95.5 Presence of coronary angioplasty implant and graft; Z86.718 Personal history of other venous thrombosis and embolism; Z96.659 Presence of unspecified artificial knee joint; Z96.649 Presence of unspecified artificial hip joint; Z79.84 Long term (current) use of oral hypoglycemic drugs; Z79.01 Long term (current) use of anticoagulants

== ENCOUNTER 2017-12-25 06:48 | Observation (INO) | payer BC ==
[~2017-12-25] VITALS: Ht 177.8 cm; Wt 103.0 kg
[2017-12-25] VITALS (10 sets, daily range): BP systolic 127–163; BP diastolic 64–86; PULSE 58–65; TEMP 36.6–36.9; O2SAT 93–97; Ht 177.8 cm; Wt 103.0 kg
[~2017-12-25 06:48] MED LIST changes: -AMLO2.5T PO; -BCTROWC TOP; +CEFAZOLIN 1000MG IV PUSH 7.5 ML IV SCH; +DAPA1TAB8 PO; -GLUC15002 PO; +GLUC1CAP6 PO; +LACTATED RINGER'S 1000ML IV SCH; +METO-478 PO; +OMEG10007 PO; -OMEGCAP2 PO; +WARF-281 PO; -WARF5TAB90 PO
[2017-12-25] MEDS ORDERED: BACITRACIN 50000 UNIT VIAL ONE (07:27)
[2017-12-25] MEDS ORDERED: LIDOCAINE HCL 1% 20 ML VIAL ONE (07:27)
--- NOTE | 2017-12-25 07:48 | History & Physical Bridge Note ---
H&P Re-Evaluation Bridge Note: I have examined the patient, reviewed the History & Physical and in the interval since the performance of the History & Physical I have noted the following changes of clinical significance: No changes noted
--- NOTE | 2017-12-25 07:49 | Pre Sedation Assessment ---
Pre Sedation Assessment General Date of Sedation: Dec 25, 2017. Vital Signs Past 12 Hours Date Time Temp Pulse Resp B/P (MAP) Pulse Ox O2 Delivery O2 Flow Rate FiO2 12/25/17 07:12 36.9 58 18 160/76 (104) 95 Room Air Review Cardiovascular: no murmur, + bradycardia Lungs: lungs clear Pre-Sedation Airway Assessment Smoking Status: Former Smoker Hx of Sleep Apnea: Yes Short Thick Neck: Yes Oral Cavity: Dentures Mallampati Classification: Class II ASA Classification: Class II NPO Status Date of Last Intake of Fluids: Dec 24, 2017 Time of Last Intake of Fluids: 1800 Date of Last Intake of Solids: Dec 24, 2017 Time of Last Intake of Solids: 1800 Procedure Planning Contraindications for Sedation: None Current Medications Reviewed: Yes Notes The planned sedation has been discussed with the patient. Informed Consent was obtained. I have identified the patient, determined the appropriateness of sedation and have assessed the patient immediately prior to the procedure. All medicine(s) and interventions are by my order.
[2017-12-25] MEDS ORDERED: FENTANYL CITRATE INJ 50 MCG/1 ML 2 ML VIAL ONE ×2 (08:06→08:46)
[2017-12-25] MEDS ORDERED: MIDAZOLAM HCL 5 MG/ML 1 ML VIAL ONE (08:06)
--- NOTE | 2017-12-25 09:40 | Post Sedation Assessment ---
Post Sedation Assessment General Date of Sedation Dec 25, 2017. Vital Signs: Vital Signs Past 12 Hours Date Time Temp Pulse Resp B/P (MAP) Pulse Ox O2 Delivery O2 Flow Rate FiO2 12/25/17 07:12 36.9 58 18 160/76 (104) 95 Room Air Post Procedure Recovery Score Activity: (2) Moves 4 extremities * Respiration: (2) Deep breath/cough Circulation: (2) +/-20% PreAnes Value Consciousness: (2) Fully Awake Oxygen Saturation: (2) > 92% On Room Air Post Anesthesia Score: 10 Discharge Sedation Level of Care: Fast Track Phase II Post Sedation Plan On clinical assessment, the patient appears to have tolerated the sedation without complications. Patient is recovering as anticipated. Patient will continue to be monitored by nursing and may be discharged when sedation discharge criteria are met per below protocol. Upon Completions of procedure and additional 15 minutes continue every 5 minute vital signs and the P.A.R. score; then discharge to a Phase I or Fast Track to Phase II per the following guidelines: * Discharge Patient to appropriate Phase II area if PAR is 8 or greater or return to pre- procedure baseline. The post - procedure orders will be as directed. * If PAR score is less than 8 or not return to pre-procedure baseline then patient will follow Phase I monitoring till PAR is reached for Phase II. The Phase I may be done in procedure room or may call to secure a Phase I area. * If naloxone or flumazenil are used for reversal, hold in Phase I for an additional 60 -120 minutes before discharge to Phase II. Please call the Sedation Physician to re-evaluate and complete post-note for discharge to Phase II area. Do NOT discharge from procedure sedation or Phase 1 until post- sedation evaluation note is complete by procedure /sedation MD Sedation Discharge Instructions to be given to the patient at discharge to home.
--- NOTE | 2017-12-25 09:42 | [facility] Post Operative Brief Note ---
Immediate Operative Summary Operative Date Dec 25, 2017. Pre-Operative Diagnosis tbs Post-Operative Diagnosis same Procedure(s) Performed dual chamber rate responsive pacemaker under fluroscopic guidance Surgeon anjel coley Chemical Lab Technician Surgeon(s) none Estimated Blood Loss 20cc Findings See Below see offiical report Fluids (cc crystalloids) 68cc Specimens none Drains None Anesthesia Type IV Sedat Cons RN Only Complication(s) none Disposition Accompanied Pt To Recover: yes Disposition: PCU
--- NOTE | 2017-12-25 09:43 | Discharge Instructions ---
Discharge Instructions Date of Service Dec 25, 2017. 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 Instructions / Follow-Up Instructions / Follow-Up ACTIVITY RECOMMENDATIONS: * Do not raise affected arm over head for 4 weeks. SPECIAL CARE INSTRUCTIONS: * If bleeding occurs, apply direct pressure to area for 5 minutes. * Call your doctor if you have severe pain, fever, drainage or bleeding at site. * Keep dry for 24 hours. * Keep any scheduled doctor's appointment. * Implant Card - hand held device with website information given. SKIN IRRITATION: * You may experience some redness and/or swelling in the area where radiation was administered. If any skin irritation occurs, please contact your family physician. FOLLOW UP VISIT: Keep any scheduled doctor appointments. Current Hospital Diet Patient's current hospital diet: AHA Diet (Heart Healthy) Discharge Diet Recommended Diet: AHA Diet (Heart Healthy) Procedures Procedures Performed: dual chamber rate responsive pacemaker under fluroscopic guidance Pending Studies Studies pending at discharge: no Medical Emergencies . Who to Call and When: Medical Emergencies: If at any time you feel your situation is an emergency, please call 911 immediately. . Non-Emergent Contact Non-Emergency issues call your: Traffic Control Technician . . "Provider Documentation" section prepared by Becka Orozco. .
[2017-12-25] MEDS ORDERED: OXYCODONE/ACETAMINOPHEN 5-325 TAB PO PRN (09:45)
[2017-12-25] MEDS ORDERED: NITROGLYCERIN 0.4 MG SL PER TAB CHARGE UT PRN (09:45)
[2017-12-25] MEDS ORDERED: ACETAMINOPHEN 325 MG TAB PO PRN (09:45)
[2017-12-25] MEDS ORDERED: CRD200 PO (09:47)
[2017-12-25] MEDS ORDERED: TPRSR25 PO (09:47)
--- NOTE | 2017-12-25 09:51 | Discharge Summary ---
Discharge Summary Date of Service Dec 25, 2017. Discharge Summary Admission Date: 12/25/2017 Discharge Date: Dec 26, 2017 Discharge Disposition: Home Principal Diagnosis: Tachy-shanita syndrome Secondary Diagnoses/Problems: pAF on coumadin [id number] 4 HTN HLD DM CAD s/p CABG x1 after acute thrombus of PCI to LAD AL H/o PE and DVT Prostate cancer will need radiation seed implant in next few weeks Procedures: dual chamber pacemaker under fluoroscopic guidance Medication Reconciliation New Medications: Amiodarone HCl (Amiodarone HCl) 200 Mg Tab 200 MG PO QAM for 30 Days, #30 TAB Metoprolol Succinate (Metoprolol Succinate ER) 25 Mg Tabcr 25 MG PO DAILY for 30 Days Continued Medications: Aspirin (Aspirin Chewable) 81 Mg Chew 162 MG PO DAILY Dapagliflozin Propanediol (Farxiga) 10 Mg Tab 10 MG PO DIRECTED Fish Oil ([place]-3) 1 Ea Cap 1200 MG PO BID, CAP Furosemide (Furosemide) 40 Mg Tab 40 MG PO DAILY, #30 Glipizide Xl (Glucotrol Xl) 10 Mg Tab 10 MG PO QAM, TAB Glucosamine-Chondroitin (Glucosamine Chondroitin C) 1 Cap Cap 1500 MG PO BID Ipratropium-Albuterol (Combivent Respimat) 1 Aer Aer 1 PUFFS INH QID, INH Lisinopril (Lisinopril) 2.5 Mg Tab 2.5 MG PO DAILY, #30 Multiple Vitamins W/ Minerals (Preservision Areds 2) 1 Cap Cap 2 CAP PO DAILY Nitroglycerin (Nitrostat) 0.4 Mg Tab 0.4 MG UT PRN, BTL Omeprazole (Prilosec) 20 Mg Cap 20 MG PO DAILY, #30 Potassium Chloride (Klor-Con Sprinkle) 10 Meq Cap 20 MEQ PO DAILY Warfarin Sodium (Warfarin Sodium) 10 Mg Tab 10 MG PO DAILY Discontinued Medications: Metoprolol Succinate (Toprol Xl) 25 Mg Tab 12.5 MG PO DAILY, #30 TAB Admission Information Physical Exam (per Admitting): aaox3, NAD Supple No JVD Bradycardic, no murmur CTA b/l No w/r/r soft NT/ND No edema b/l LE No focal deficits skin intact Hospital Course Pt admitted for elective permanent pacemaker due to Tachy-shanita syndrome. He underwent procedure without any complications-monitored overnight; started on amiodarone in addition to increase dose of his toprol. He was discharged home Total time spent on discharge = 30 + minutes This includes examination of the patient, discharge planning, medication reconciliation, and communication with other providers. Discharge Instructions ACTIVITY RECOMMENDATIONS: * Do not raise affected arm over head for 4 weeks. SPECIAL CARE INSTRUCTIONS: * If bleeding occurs, apply direct pressure to area for 5 minutes. * Call your doctor if you have severe pain, fever, drainage or bleeding at site. * Keep dry for 24 hours. * Keep any scheduled doctor's appointment. * Implant Card - hand held device with website information given. SKIN IRRITATION: * You may experience some redness and/or swelling in the area where radiation was administered. If any skin irritation occurs, please contact your family physician. FOLLOW UP VISIT: Keep any scheduled doctor appointments.
[2017-12-25 11:10] LABS: INR 1.5 (0.9-1.1)
[2017-12-25] MEDS ORDERED: IV FLUIDS COMPLETED PRN (12:00)
[2017-12-25] MEDS: IPRATROPIUM BROMIDE/ALBUTEROL respimat INH INH SCH ×3 (12:07→19:48)
[2017-12-25] MEDS: AMIODARONE 200 MG TAB PO SCH (12:07)
[2017-12-25] MEDS: METOPROLOL SUCC 25MG EXT REL TAB PO SCH (12:07)
[2017-12-25] MEDS: OMEGA-3 (PURIFIED FISH OIL) 1 GM CAP PO SCH (19:48)
[2017-12-25] MEDS ORDERED: GLUCOSAMINE CHONDROITIN PO SCH (21:00)
[2017-12-26 04:00] VITALS: BP 151/74; PULSE 61; TEMP 36.4; O2SAT 93
[2017-12-26 05:42] LABS: INR 1.2 (0.9-1.1)
--- NOTE | 2017-12-26 07:11 | DIAGNOSTIC IMAGING REPORT ---
CHEST 2 VIEWS ROUTINE HISTORY: 76 years-old Male EXACT TIME ORDERED Evaluate for pneumothorax and lead placement status post placement of left subclavian pacer with concern for possible pneumothorax. COMPARISON: Chest radiograph 11/21/2017 TECHNIQUE: PA and lateral views of the chest FINDINGS: Cardiac silhouette is normal in size. Prior median sternotomy with several superior sternotomy wires fractured. Atherosclerosis of the aorta. Surgical clips project over the left heart border suggesting prior CABG. Left subclavian pacer has been placed with leads overlying the regions of the right atrium and right ventricle. No postprocedural pneumothorax identified. Subsegmental linear opacity of the right midlung suggest area of atelectasis. No large pleural effusion or overt pulmonary edema. The bones of the chest appear grossly intact. Lateral view is limited secondary to positioning of the patient's arms. IMPRESSION: Status post placement of a left subclavian pacer with leads overlying the regions of the right atrium and right ventricle. No postprocedural pneumothorax identified. The above report was generated using voice recognition software. It may contain grammatical, syntax or spelling errors. Electronically signed by: Sanjiv Hooks M.D. 12/26/2017 7:10 AM Dictated Date/Time: 12/26/2017 7:06 AM
[2017-12-26 07:54] VITALS: BP 149/77; PULSE 62; TEMP 36.8; O2SAT 93
[2017-12-26 08:00] VITALS: O2SAT 93
--- NOTE | 2017-12-26 08:19 | Cardiology Follow-Up ---
Subjective Subjective Date of Service: Dec 26, 2017. Pt evaluation today including: conversation w/ patient, physical exam, lab review Problem List Medical Problems: (1) Acute anterior wall NV Status: Acute (2) Acute electrocardiogram changes Status: Acute (3) Chest pain, unspecified Status: Acute (4) Global amnesia Status: Acute (5) Paroxysmal atrial fibrillation Status: Acute (6) Precordial chest pain Status: Acute Review of Systems Constitutional: + weakness, + fatigue Respiratory: No shortness of breath, No dyspnea on exertion Cardiac: No chest pain, No edema, No palpitations Abdomen: No vomiting, No diarrhea Neurologic: + weakness Endo: + fatigue Objective Vital Signs Last Vital Signs Documentation Date Time Temp Pulse Resp B/P (MAP) Pulse Ox O2 Delivery O2 Flow Rate FiO2 12/26/17 04:00 36.4 61 14 151/74 (99) 93 Room Air Physical Exam: General Appearance: WD/WN, no apparent distress, + obese Eyes: bilateral eyes PERRL, bilateral eyes EOMI Neck: supple Respiratory/Chest: lungs clear, normal breath sounds Cardiovascular: regular rate, rhythm, no edema, no murmur Abdomen: normal bowel sounds, soft Extremities: no pedal edema Neurologic/Psychiatric: alert, normal mood/affect, oriented x 3 Skin: no rash (left pectoral incision intact; no hematoma; mild ecchymosis) Assessment and Plan Impression: TBS s/p ppm pAF on coumadin [id number] 4 HTN HLD DM CAD s/p CABG x1 after acute thrombus of PCI to LAD AL H/o PE and DVT Prostate cancer will need radiation seed implant in next few weeks Plan: -Ok for discharge home today -No lifting the left elbow over the left shoulder for 1 month -Start amiodarone 200mg daily and continue coumadin we will let the coumadin clinic know he is starting on amiodarone -Increase toprol to 25mg daily -f/u in our [facility] device clinic next week Discharge planning: home Medications: Medications Administered Medications (Trade) Dose Ordered Sig/[place] Route Start Time Stop Time Status Last Admin Dose Admin Cefazolin Sodium 7.5 ml @ 2.5 mls/min PREOP IV 12/25/17 06:00 12/25/17 18:00 DC 12/25/17 07:54 2.5 MLS/MIN Lactated Ringer's 1,000 ml @ 15 mls/hr Q24H IV 12/25/17 06:00 12/25/17 18:00 DC 12/25/17 07:32 15 MLS/HR Fentanyl Citrate (Fentanyl Inj) 100 mcg STK-MED ONCE .ROUTE 12/25/17 08:06 12/25/17 08:07 DC 12/25/17 08:06 100 MCG Midazolam HCl (Versed Inj) 5 mg STK-MED ONCE .ROUTE 12/25/17 08:06 12/25/17 08:07 DC 12/25/17 08:06 5 MG Fentanyl Citrate (Fentanyl Inj) 100 mcg STK-MED ONCE .ROUTE 12/25/17 08:46 12/25/17 08:47 DC 12/25/17 08:46 100 MCG Fish Oil ([place]-3 (Purified Fish Oil) Cap) 1 gm BID PO 12/25/17 21:00 01/24/18 20:59 12/25/17 19:48 1 GM Albuterol/ Ipratropium (Combivent Respimat Inh) 1 puffs QID INH 12/25/17 13:00 01/24/18 12:59 12/25/17 19:48 1 PUFFS Amiodarone HCl (Cordarone Tab) 200 mg QAM PO 12/25/17 10:45 01/24/18 10:44 12/25/17 12:07 200 MG Metoprolol Succinate (Toprol Xl Tab) 25 mg DAILY PO 12/25/17 10:45 01/25/18 10:44 12/25/17 12:07 25 MG Lab Results: Telemetry: AP-VS ECG: Ap-VS Pacemaker interrogation: Normal lead testing today CXR: leads in place No PTX Last 24 Hours Test 12/25/17 10:50 12/25/17 10:54 12/26/17 05:15 Prothrombin Time 15.4 SECONDS 12.8 SECONDS Prothromb Time International Ratio 1.5 1.2 Bedside Glucose 131 mg/dl
[2017-12-26] MEDS: METOPROLOL SUCC 25MG EXT REL TAB PO SCH (08:55)
[2017-12-26] MEDS: OMEGA-3 (PURIFIED FISH OIL) 1 GM CAP PO SCH (08:55)
[2017-12-26] MEDS: AMIODARONE 200 MG TAB PO SCH (08:55)
[2017-12-26] MEDS ORDERED: ASPIRIN 81 MG CHEW PO SCH (09:00)
[2017-12-26] MEDS ORDERED: POTASSIUM CHLORIDE 10 MEQ TABCR PO SCH (09:00)
[2017-12-26] MEDS ORDERED: PANTOprazole SOD 40 MG TAB PO SCH (09:00)
[2017-12-26] MEDS ORDERED: METOPROLOL SUCC 25MG EXT REL TAB PO SCH (09:00)
[2017-12-26] MEDS ORDERED: LISINOPRIL 2.5 MG TAB PO SCH (09:00)
[2017-12-26] MEDS ORDERED: CEROVITE ADV FORMULA TAB PO SCH (09:00)
[2017-12-26] MEDS ORDERED: FUROSEMIDE 40 MG TAB PO SCH (09:00)
[2017-12-26] MEDS: IPRATROPIUM BROMIDE/ALBUTEROL respimat INH INH SCH (09:01)
[2017-12-26 09:30] VITALS: BP 149/77; PULSE 62; TEMP 36.8; O2SAT 93
--- NOTE | 2017-12-26 14:36 | OPERATIVE REPORT ---
DATE OF OPERATION: 12/25/2017 PREOPERATIVE DIAGNOSIS: Tachybrady syndrome. POSTOPERATIVE DIAGNOSIS: Same. PROCEDURE: Dual chamber rate responsive permanent pacemaker under fluoroscopic guidance. SURGEON: Dr. Becka Orozco. AUTOMOTIVE PARTS CLERK: None. ANESTHESIA: Monitored conscious sedation administered under my supervision by Antonieta Arredondo. Start time 8:10 and end time 9:30. A total of 5 mg of Versed, 200 mcg of fentanyl. IV FLUIDS: 60 mL. ANTIBIOTICS: Two grams of Ancef. ESTIMATED BLOOD LOSS: Less than 10 mL COMPLICATIONS: None. CONDITION: Stable. URINE OUTPUT: 900. SPECIMENS: None. FINDINGS: See below. DRAINS: None. INDICATIONS: This is a 76-year-old gentleman who has a past medical history for paroxysmal atrial fibrillation on Coumadin with a CHADS2-VASc score of 4, coronary artery disease, history of a CABG x1 after an acute thrombus of a recent PCI to the LAD, diabetes, history of PE and DVT, hypertension, hyperlipidemia, obstructive sleep apnea, prostate cancer in which he will soon need a radiation seed implantation. Due to his tachybrady syndrome, he was recommended a pacemaker. CONSENT: Consent was obtained prior the patient going to electrophysiology lab. The patient informed the risks, benefits and alternatives. These risks include but not limited to sudden cardiac , cardiac arrhythmias, cerebrovascular accident, myocardial infarction, injury to the blood vessels, chamber of the heart, lung, bleeding and infection. The patient understood these risks and agreed to the procedure as planned. Informed consent was obtained. DESCRIPTION OF THE PROCEDURE: The patient was brought into physiology on a fasting state. He was connected to continuous quality assurance monitor body. A timeout was performed to ensure patient identity and procedure correctly. The patient was prepped and draped over the left infraclavicular space in normal surgical standard fashion. Moderate conscious sedation was given throughout the procedure for patient's comfort level. [place] precautions were maintained throughout the procedure. A 20 mL of 1% lidocaine, bupivacaine mixture were given in the left deltopectoral groove. Incision was made in the left deltopectoral groove. Blunt dissection was performed down to identify the cephalic vein and it was isolated using 0 silk ties. The vein was nicked with an 11 blade and a guidewire was inserted without resistance. An 8-Senegalese sheath was inserted over the guidewire without resistance. The dilator was removed and a second guidewire was inserted through the sheath to allow for retained venous access. The sheath was flushed, dilator reinserted over it and then reinserted with guidewires. The guidewire and dilator removed. The right ventricular pacing lead was then advanced down into the right ventricular apex region but never sat very nicely, so it ended up being a little bit on the low mid right ventricular septum region. There was adequate pacing and sensing thresholds and no diaphragm stimulation with high output pacing. The 8-Senegalese sheath was peeled away and lead was fixated to pectoralis muscle with 0 silk suture. A long 7-Senegalese sheath was inserted over the retained guidewire without any resistance. The guidewire and dilator removed. The right atrial pacing lead was then advanced into right atrium under fluoroscopic guidance. There was adequate pacing and sensing thresholds and no diaphragm stimulation with high output pacing. The 7-Senegalese sheath was peeled away and lead was fixated to the pectoralis muscle using 0 silk sutures. The pacemaker pocket was created over the pectoralis muscle within the pectoralis fascia using blunt dissection. The pocket was flushed with copious amounts of bacitracin saline wash and inspected for hemostasis. The pulse generator was then attached to the leads making sure that the pins were appropriate passed set screws and set screws were all tightened. The pulse generator was then placed in the pocket, making sure that the leads were lying flat beneath the device. A stay stitch using 0 silk suture was used to secure the device to the pectoralis muscle. Bobbi stat was placed in the pocket as the patient on Coumadin. Incision was then closed in 3-layer fashion, 2-0 Vicryl interrupted suture followed by 3-0 Vicryl interrupted suture, followed by 4-0 Monocryl interrupted stitch and Dermabond was applied. EQUIPMENT: 1. Pulse generator is a Medtronic Carleen XT DR AVA Gilliland [id number], serial #[id number]. 2. Right atrial lead, Medtronic 5076-52 cm, serial #[id number]. 3. Right ventricular lead, Medtronic 5076-58 cm, serial #[id number]. INTRAOPERATIVE TESTIN. Right atrial lead: P-wave 2.6 millivolts, impedance 749 ohms, threshold 2.6 volts at 4 milliamps. 2. Right ventricular lead: R-wave 12.6 millivolts, impedance 1109 ohms, threshold 0.7 volts at 0.8 milliamps. FINAL MEASUREMENTS THROUGH THE DEVICE: 1. Right atrial lead: P waves 1 millivolt, impedance 665 ohms, threshold 2.25 volts at 0.4 milliseconds. 2. Right ventricular lead: R waves 10.8 millivolts, impedance 817 ohms, threshold 0.75 volts at 0.4 milliseconds. FINAL PARAMETERS: MVP-R60/130, right atrial amplitude 5 volts, pulse width 0.4 milliseconds, sensitivity 0.3 millivolts. Right ventricular amplitude 3.5 volts, pulse width 0.4 milliseconds, sensitivity 1.2 millivolts. IMPRESSION: Successful implantation of a dual chamber rate responsive permanent pacemaker under fluoroscopic guidance secondary to tachybrady syndrome. PLAN: Monitor patient overnight, 12-lead ECG, chest x-ray. He cannot lift the left elbow over left shoulder for 1 month. He cannot lift more than 10 pounds with the left arm for 2 weeks. He can shower in 2 days. We will start him on amiodarone 200 mg daily. We will inform the Coumadin clinic that we are doing this. He should increase his metoprolol to 25 mg daily, and he should follow up in our [facility] device office in 7-10 days. I attest to the content of the Intraoperative Record and any orders documented therein. Any exceptions are noted below. BEENA
[2017-12-26] MEDS ORDERED: WARFARIN SOD 10 MG TAB PO SCH (16:00)
== END 2017-12-26 11:00 | disposition home or self-care (01) ==
LOC: C.ACU 06:48 → EDBEDREQ 08:09 → ENRESERV 08:55 → C.MSICU 09:38
PROVIDERS: ADMIT Internal Medicine; ATTEND Internal Medicine
DX: I49.5 Sick sinus syndrome (principal); I48.0 Paroxysmal atrial fibrillation; I25.84 Coronary atherosclerosis due to calcified coronary lesion; C61 Malignant neoplasm of prostate; I10 Essential (primary) hypertension; I25.10 Atherosclerotic heart disease of native coronary artery without angina pectoris; E11.9 Type 2 diabetes mellitus without complications; E78.5 Hyperlipidemia, unspecified; K21.9 Gastro-esophageal reflux disease without esophagitis; G47.33 Obstructive sleep apnea (adult) (pediatric); Z95.1 Presence of aortocoronary bypass graft; Z86.711 Personal history of pulmonary embolism; Z86.718 Personal history of other venous thrombosis and embolism; Z95.5 Presence of coronary angioplasty implant and graft; Z79.899 Other long term (current) drug therapy; Z79.82 Long term (current) use of aspirin; Z79.84 Long term (current) use of oral hypoglycemic drugs; Z79.01 Long term (current) use of anticoagulants; Z87.891 Personal history of nicotine dependence

== ENCOUNTER → 2018-01-03 | Outpatient (CLI) | payer BC, OTHER ==
[~2018-01-03] MED LIST changes: -CEFAZOLIN 1000MG IV PUSH 7.5 ML IV SCH; +CRD200 PO; -JNV100 PO; -LACTATED RINGER'S 1000ML IV SCH; -METO-478 PO; +TPRSR25 PO
[2018-01-03 13:32] VITALS: BP 125/78; PULSE 61; TEMP 36.5; O2SAT 95
--- NOTE | 2018-01-03 16:06 | Radiation Oncology Follow-Up ---
Radiation Oncology Follow-Up Date of Visit Jan 03, 2018. Reason For Visit to discuss radiation therapy Radiation Completion Date none, here to discuss Space Oar... consult 11-13-17 Diagnosis (1) Prostate cancer Status: Acute Onset Date: 10/22/2017 Location: Right lobe of the prostate Histology Subtype: adenocarcinoma Stage: ll Permanent Comment: Rising PSA pretreatment, PSA 14.48 Status post ultrasound-guided biopsies 10/22/2017 Adenocarcinoma of the prostate Gregorio 4+4 Prostate volume 55.5 Prostate density 0.26 Last Edited By: Thelma Medeiros on Jan 03, 2018 15:51 History of Present Illness Mr. Lopez is without a family history of prostate cancer. He is been followed with intermittent prostate-specific antigens that have remained in the range of 2-2.8. On 06/24/2012 the prostate-specific antigen was 2.59. The patient is on Coumadin and had some blood in his urine. He was sent to Dr. Arciniega for evaluation. A cystoscopy was performed revealing no abnormalities. Subsequent repeat in prostate-specific antigen on 08/18/2016 showed a increase in prostate- specific antigen to 5.74. Digital rectal exam revealed a 5 mm nodule in the right lateral apex without other induration. Patient returns for a follow-up visit on 09/11/2017. Digital rectal exam at that time showed a approximately 40 g prostate which was asymmetric with a 10 mm firm raised nodule at the right apex. A repeat prostate-specific antigen was ordered and unfortunately showed a increase to 14.48. Because of this significant change Dr. Arciniega discussed the option of ultrasound-guided biopsy and the patient agreed. On 10/22/2016 patient underwent ultrasound-guided biopsies. Estimated prostate volume was 55.5 g. A total of 12 biopsies were taken. Biopsies from the right lateral mid gland revealed an adenocarcinoma Gregorio grade 4+4 involving 40% of the core tissue sample with no perineural invasion identified. Biopsy from the right apex revealed an adenocarcinoma Gregorio grade 4+4 involving 65% of the core tissue sample with evidence of perineural invasion. Biopsy from the right lateral apex was positive for adenocarcinoma Gregorio grade 4+4 involving 40% of the core tissue sample with no perineural invasion identified. The remainder of the biopsies were benign. Therefore total of 3 out of 12 biopsies were positive all Gregorio grade 4+4 and all in the right apex and lateral mid gland consistent with the enlarging nodule noted on digital rectal exam. The patient has multiple medical comorbidities and given his age he is not likely to be a good surgical candidate. We were asked to see the patient to discuss the potential role of radiation. Interim History He was started on bicalutamide for hormone suppression. He had an arch study and was not a candidate for prostate seed implant. He is therefore elected to undergo external beam radiation therapy. He has returned today to discuss placement of gold fiducial markers and Space OAR. He completed an AUA score sheet and gave a score of 0 today. He completed and expanded prostate cancer index composite for clinical practice and gave a score of 0 of 12 and urinary incontinence symptoms. He gave a score of 0 12 and urinary irritation symptoms. He gave a score of 0 12 and bowel symptoms. He gave a score of 8 of 12 and sexual symptoms. He gave a score of 2 of 12 and hormonal vitality symptoms. His total was 10 of 60. He recently underwent placement of a pacemaker. He had developed bradycardia. The pacemaker was placed December 25, 2017. He is on anticoagulation therapy. Allergies Coded Allergies: No Known Allergies (Verified , 12/25/17) Home Medications Scheduled Amiodarone HCl (Amiodarone HCl), 200 MG PO QAM Aspirin (Aspirin Chewable), 162 MG PO DAILY Dapagliflozin Propanediol (Farxiga), 10 MG PO DIRECTED Fish Oil (Mackay-3), 1,200 MG PO BID Furosemide (Furosemide), 40 MG PO DAILY Glipizide Xl (Glucotrol Xl), 10 MG PO QAM Glucosamine-Chondroitin (Glucosamine Chondroitin C), 1,500 MG PO BID Ipratropium-Albuterol (Combivent Respimat), 1 PUFFS INH QID Lisinopril (Lisinopril), 2.5 MG PO DAILY Metoprolol Succinate (Metoprolol Succinate ER), 25 MG PO DAILY Multiple Vitamins W/ Minerals (Preservision Areds 2), 2 CAP PO DAILY Nitroglycerin (Nitrostat), 0.4 MG UT PRN Omeprazole (Prilosec), 20 MG PO DAILY Potassium Chloride (Klor-Con Sprinkle), 20 MEQ PO DAILY Warfarin Sodium (Warfarin Sodium), 10 MG PO DAILY Review of Systems Gastrointestinal: Symptoms: WNL Oral: Symptoms: No Problems Respiratory: Symptoms: SOB With Exertion Urinary: Symptoms: WNL Skin: Symptoms: No Problems Other Skin Symptoms: ecchymotic where pace maker was inserted " Additional Notes: He completed a distress management report and answered "no" to all questions. Physical Exam Vital Signs Date Time Temp Pulse Resp B/P (MAP) Pulse Ox O2 Delivery O2 Flow Rate FiO2 01/03/18 13:32 36.5 61 16 125/78 95 Fatigue: None General Appearance: no apparent distress Eyes: normal inspection, EOMI ENT: normal ENT inspection, hearing grossly normal Neck: no adenopathy, thyroid normal Respiratory/Chest: lungs clear, no respiratory distress, no accessory muscle use Cardiovascular: regular rate, rhythm, no gallop, + systolic murmur (2/6 systolic murmur) Abdomen: non tender, soft, no organomegaly Extremities: no pedal edema Neurologic/Psychiatric: no motor/sensory deficits, alert, normal mood/affect Skin: warm/dry Pain Management Patient Reports Pain: No Side: Bilateral Patient Preferred Pain Scale: 0 - 10 Initial Pain Intensity: 0.0 Pain Management Plan He denies pain therefore requires no pain management. Laboratory Laboratory Results: not applicable Pathology Pathology Results: not applicable Imaging Imaging Studies: not applicable Assessment & Plan Plan: Patient is also seen and examined by Dr. Rolon today. He obtained consents for placement of the goal fiducial markers as well as Space OAR. The consent for external beam therapy was renewed. Nursing has been in contact with cardiology. The recommendation was for his anticoagulant to be held for 5 days. When speaking to the MRI department it was recommended that he not have an MRI for 6 weeks following the recent placement of the pacemaker. Prescriptions were given for medications to be taken prior to his procedure. He was instructed that he cannot drive to the procedure or from the procedure. He will be notified as to the date and time when the procedure will take place. He continues on the Casodex. Assessment & Plan (Attending) We explained the background, history, epidemiology, natural course and progression of high risk prostate cancer. We explained the current approach to stratifying patients with prostate cancer. We then briefly reviewed the role of surgery for prostate cancer. We will defer the conversation to urology. We did highlight that there may be a need for adjuvant radiation therapy following radical prostatectomy based on certain high risk features including an elevated PSA, extracapsular extension, seminal vesicle invasion and positive margins. We initially discussed the role of external beam radiation therapy for high risk prostate cancer. We explained that external beam radiation therapy may either be used alone or in combination with prostate seed implantation. I further went on to explain the role of external beam radiation therapy alone including the duration of treatment as well as side effects that include but are not limited to skin erythema, skin breakdown, fatigue, nausea, vomiting, diarrhea, bowel perforation, bowel obstruction, cystitis, radiation proctitis, hematuria, fistula formation, urethral stricture formation, erectile dysfunction (impotency), second malignancy development. We explained that there is also risk of development of incontinence as well as the need for a urinary catheter and self catheterizations in the future. We went into further detail explaining the procedures involved including CT simulation and the day-to -day procedures and what to expect. As the patient does have high risk prostate cancer we then went on to further discuss the role of androgen deprivation therapy. We explained to the patient that the NCCN guidelines clearly recommend androgen deprivation therapy with radiation therapy in the neoadjuvant, concurrent and adjuvant setting. This recommendation is based on the RTOG and EORTC trials and additional other trials which have a shown a survival benefit with addition of ADT to radiation therapy for high risk prostate cancer. We then discussed the short term and fdc toxicity associated with androgen deprivation therapy which includes but is not limited to decreased libido, weight gain, hot flashes, decreased bone density, loss of muscle mass, deregulation of lipids/glucose and liver disease. We did also discuss the placement of SpaceOAR hydrogel for utilization with radiation therapy for treatment of prostate cancer. We did review the evidence based literature and the potential benefit with reducing rectal toxicity from radiation therapy. We did review the potential options for placing the hydrogel spacer including having it done as an outpatient procedure as well as being done in the operative room. We did explain reviewed the risks which are including, but not limited to, infection, bleeding, fistula formation, difficulty with urination, difficulty with bowel movements, rectal perforation, nerve damage, hematoma formation, hemorrhage, numbness, paralysis. The patient understands and would be willing to undergo the treatment potentially. The patient and family had multiple questions which were answered to their full satisfaction. Thank you for allowing us to participate in the care of this patient. This chart was completed in part utilizing [employer] Speech Voice Recognition software. Attempts were made to minimize the grammatical errors, random word insertions, pronoun errors and incomplete sentences. Any formal questions or concerns about the content, text or information contained within the body of this dictation should be directly addressed to the provider for clarification. Ricci Rolon MD Department of Radiation Oncology [facility] Total Time In Follow-Up I spent 20 minutes speaking to the patient in performing examination. I spent 15 minutes reviewing information and completing this note. AK Total Time (Attending) In Follow-Up I spent 30 minutes examining and counseling the patient. I spent 15 minutes completing this note. STOCK TRACER Copy To Justa Lebron DO; Daisy Arciniega MD; Becka Orozco D.O.
== END | disposition home or self-care (01) ==
LOC: C.ONC 13:29
PROVIDERS: ATTEND Radiology Radiation Oncology
DX: C61 Malignant neoplasm of prostate (principal)

== ENCOUNTER → 2018-02-26 | Outpatient (CLI) | payer BC, OTHER ==
[~2018-02-26] MED LIST changes: +GADAVIST IV PRN
--- NOTE | 2018-02-26 10:48 | DIAGNOSTIC IMAGING REPORT ---
PROSTATE MRI COMBO CLINICAL HISTORY: 77 years-old Male presenting with prostate carcinoma. Preradiation therapy study. TECHNIQUE: Multisequence, multiplanar MR imaging of the prostate was performed before and after the administration of intravenous contrast. Additional postprocessing was performed on a separate Vaughn Burton workstation by the radiologist for 3-D volumetric segmentation of the prostate and contouring of region(s) of interest (JENY) for targeting. IV contrast: 10 cc intravenous Gadavist COMPARISON: None. FINDINGS: The study is significantly limited from a technical standpoint secondary to artifact from patient's right hip arthroplasty. Diffusion-weighted imaging is felt to be nondiagnostic. Prostate: The prostate measures 4.7 x 3.7 x 4.5 cm (DynaCAD prostate boundary segmentation volume 36.3 mL). Moderate changes of benign prostatic hyperplasia. There is a right-sided nodule at the prostate base. There is decreased signal within the transitional zone of the prostate, likely secondary to the patient's known carcinoma. Bladder: Normal. Bowel: Visualized portion of the rectum normal. Peritoneum: No free fluid in the pelvis. Lymph nodes: No lymphadenopathy in the visualized portion of the pelvis. Vasculature: Iliac vessels patent. Abdominal wall: Normal. Osseous structures: Normal bone marrow signal intensity. A Spaceor hydrogel implant is visualized. The implant is in satisfactory position. The distance between the posterior prostate and anterior rectal wall is 7 mm. at the mid prostate level. IMPRESSION: 1. Technically limited study due to artifact from the patient's right hip prosthesis which renders diffusion-weighted imaging essentially nondiagnostic 2. Ill-defined decreased signal within the transitional zone, at the prostate base, likely secondary to the patient's known recurrent carcinoma. 5 mm exophytic nodule at the right or static base posteriorly 3. Prostate volume of 36.3 mL 4. Spaceor Hydrogel implant. The distance between the posterior prostate and anterior rectal wall is 7 mm at the mid prostate level Electronically signed by: Phan Bailey M.D. 02/26/2018 10:46 AM Dictated Date/Time: 02/26/2018 10:26 AM
== END | disposition home or self-care (01) ==
LOC: C.MRI 07:46
PROVIDERS: ATTEND Physician Assistant Medical
DX: C61 Malignant neoplasm of prostate (principal)

== ENCOUNTER 2020-09-20 16:57 | Inpatient (IN) ==
[2020-09-20] MEDS ORDERED: SODIUM CHLORIDE 0.9% 500 ML IV ONE (17:24)
[2020-09-20] MEDS ORDERED: DEXAMETHASONE SOD INJ 10 MG/ML VIAL IV ONE (17:24)
[2020-09-20] MEDS ORDERED: ALBUTEROL HFA 8 GM INHALER INH ONE (17:24)
[2020-09-20] MEDS ORDERED: guaiFENesin 600 MG TABCR PO STA (17:32)
--- NOTE | 2020-09-20 17:36 | Emergency Department Note ---
Impression & Plan Pneumonia due to COVID-19 virus, Dyspnea on minimal exertion, Hypoxia, Cardiac pacemaker in situ ED Provider Note NAME: PAULA DORSEY AGE: 79 SEX: M ARRIVES VIA: Ambulance INFORMANT: Patient, ED PROVIDER(S): Asael Dunlap MD CHIEF COMPLAINT: Shortness of breath. PLAN: Disposition: Admit MEDICAL DECISION MAKING: The patient is a pleasant 79-year-old gentleman with a past medical history of CAD with h/o PCI and CABG, pafib and h/o DVT on Coumadin, NIDDM 2, hypertension, hyperlipidemia who presents emerged department for worsening shortness of breath with dyspnea with mild exertion, body aches, diarrhea that has been developing since Sunday in the setting of his being symptomatic for and diagnosed with COVID-19 on 14 September. Their exposure to COVID-19 is unclear but the patient himself did go to a [employer] with a friend who eventually tested positive for COVID-19. However they are uncertain given the patient's apparently developed symptoms before him. He denies chest pain, vomiting, urinary symptoms. On arrival the patient is fatigued and uncomfortable but no acute distress, afebrile with mild hypoxia to 90 and periodically going down to 88% just with speaking alone. Signs are otherwise stable. Was placed on 2 L nasal cannula. Given the patient's mild hypoxia in the setting his comorbidities with presumed COVID-19 infection patient is agreeable with recommendation for admission. EKG is paced without overt acute ischemia. Chest x-ray with faint patchy airspace opacities in right midlung and left lung base consistent with suspected COVID-19 pneumonia. WBC 3.5 with lymphopenia of 0.6 also consistent with presumed COVID-19. H/H 12.8/38 similar to prior range of values. INR is 3.4 in the setting of the patient's warfarin therapy. Chemistry without acidosis. BUN/creatinine> 20 consistent with the patient's clinically dry appearance and report of diarrhea. Lactate 1.2, within normal limits. Electrolytes and LFTs unremarkable. Troponin negative/undetectable. Procalcitonin is undetectable making sepsis/bacterial infection less likely. ESR and CRP are elevated at 44 and 3.4, respectively and are nonspecific. The patient's COVID-19 RNA, NAAT test was positive. Given the patient's hypoxia in setting of his comorbidities reasonable to proceed with admission. He was given 6 mg of dexamethasone in addition to IV fluid hydration, guaifenesin and Albuterol inhaler. Case was discussed with Dr. Ramires, [facility] hospitalist, who will evaluate the patient for admission. Triage Nursing notes reviewed and agree them. Prior medical records reviewed Vital Signs: reviewed and remarkable for hypoxia. Differential diagnosis: Reactive airway disease, pneumonia, pneumothorax, COPD, CHF, infections, cardiac ischemia, pulmonary embolism, musculoskeletal, gastrointestinal, as well as other pathologies. ER treatment provided: See below. Diagnostics interpreted by me: ECG: Atrial paced rhythm, 62 bpm, no ectopy, no overt acute ischemia. Cardiac Monitoring: An order for continuous cardiac monitoring was placed and demonstrated Atrial paced rhythm, 62 bpm, no ectopy. Laboratory studies: See below Imaging studies: XR chest 1V portable HISTORY: SEPSIS COMPARISON: Chest 11/21/2017. FINDINGS: No pneumothorax or no pleural effusions. The heart is normal in size. There are poststernotomy changes and a left-sided dual-chamber pacemaker. No evidence for pulmonary edema. Faint hazy peripheral airspace opacities within the right midlung zone and left lung base. This favors an atypical/viral pneumonia. No evidence for pulmonary edema. IMPRESSION: Faint patchy airspace opacities within the right midlung zone and the left lung base favor an atypical/viral pneumonia. Consultation(s): Case was discussed with Dr. Ramires, [facility] hospitalist, who will evaluate the patient for admission. HPI: The patient is a pleasant 79-year-old gentleman with a past medical history of CAD with h/o PCI and CABG, pafib and h/o DVT on Coumadin, NIDDM 2, hypertension, hyperlipidemia who presents emerged department for worsening shortness of breath with dyspnea with mild exertion, body aches, diarrhea that has been developing since Sunday in the setting of his being symptomatic for and diagnosed with COVID-19 on 14 September. Their exposure to COVID-19 is unclear but the patient himself did go to [place] with a friend who eventually tested positive for COVID-19. However they are uncertain given the p atyamilex's apparently developed symptoms before him. He denies chest pain, vomiting, urinary symptoms. ROS: See above HPI for pertinent positives & negatives. A total of 10 systems reviewed and were otherwise negative. PAST MEDICAL HISTORY:See Below PAST SURGICAL HISTORY:See Below FAMILY HISTORY:See Below SOCIAL HISTORY:See Below HOME MEDICATIONS:See Below ALLERGIES:See Below VITALS:See Below PHYSICAL EXAMINATION: GENERAL: Awake, alert, fatigue-appearing, in no distress HENT: Normocephalic, atraumatic. Oropharynx with dry mucous membranes and otherwise unremarkable. EYES: Normal conjunctiva. Sclera non-icteric. NECK: Supple. No nuchal rigidity. FROM. No JVD. RESPIRATORY: Diminished at the bases with scant intermittent wheeze. CARDIAC: Regular rate, normal rhythm. Extremities warm and well perfused. Pulses equal. ABDOMEN: Soft, non-distended. No tenderness to palpation. No rebound or guarding. No masses. RECTAL: Deferred. MUSCULOSKELETAL: Chest examination reveals no tenderness. The back is symmetrical on inspection without obvious abnormality. There is no CVA tenderness to palpation. No joint edema. LOWER EXTREMITIES: Calves are equal size bilaterally and non-tender. No edema. No discoloration. NEURO: Normal sensorium. No sensory or motor deficits noted. SKIN: No rash or jaundice noted. Asael Dunlap MD Past Med/Surg History Medical History Asthma DM2 (diabetes mellitus, type 2) DVT (deep venous thrombosis) "RLE" History of left heart catheterization (LHC) "60% stenosis mid left anterior descending " HLD (hyperlipidemia) Hyperlipidemia Hypertension AL on CPAP Paroxysmal atrial fibrillation Prostate cancer (10/22/17) Systolic ejection murmur Tachy-shanita syndrome Surgical History H/O esophagogastroduodenoscopy Hx of total knee arthroplasty S/P CABG x 1 S/P cholecystectomy S/P hip replacement S/P knee replacement Family History Other No pertinent family history Social History Smoking Status: Former smoker Cigarettes Per Day: 40; Hx Alcohol Use: No Hx Substance Use: No Preferred Language: Palestinian Communication Ability: Effective Visual Impairment: No Limitations Hearing Ability: Normal Beliefs That Will Affect Care: None marital status: Current Living Situation: Family Other Information That Helps Us Care for You: No Feels Safe at Home: Yes Safety Concerns: Feels Safe At This Time Assistive Devices: Denture - Upper, Glasses, Hearing Aid - Left, Hearing Aid - Right and Prosthesis Allergies Allergies Allergy/AdvReac Type Severity Reaction Status Date / Time No Known Allergies Allergy Verified 02/21/19 18:11 Home Meds Home Medications Medication Instructions Recorded Confirmed aspirin 81 mg PO BID 02/21/19 09/20/20 glipizide 10 mg PO BID 02/21/19 09/20/20 glucos sul [id number] 1 cap PO BID 02/21/19 09/20/20 [Glucosamine Chondroitin] lisinopril 2.5 mg PO QAM 02/21/19 09/20/20 metformin 500 mg PO QAM 02/21/19 09/20/20 metoprolol succinate 25 mg PO BID 02/21/19 09/20/20 nitroglycerin [Nitrostat] 0.4 mg SUBLINGUAL DIRECTED PRN 02/21/19 09/20/20 omeprazole 20 mg PO BID 02/21/19 09/20/20 potassium chloride [Klor-Con M10] 10 meq PO BID 02/21/19 09/20/20 fluocinonide 1 applic TOPICAL DAILY PRN 09/20/20 09/20/20 ketoconazole 1 applic TOPICAL .UD 09/20/20 09/20/20 pioglitazone 45 mg PO DAILY 09/20/20 09/20/20 warfarin 5 - 10 mg PO .DAILY/UD 09/20/20 09/20/20 Results & Data (ED) Vital Signs Vital Signs - 24 hr 09/20/20 16:36 09/20/20 17:24 09/20/20 17:30 Temperature 37.2 C Temperature Source Oral Pulse Rate 79 78 62 Pulse Rate from SpO2 Sensor 62 Respiratory Rate 20 20 16 Respiratory Effort / Characteristics Non-Labored Spontaneous Respiratory Depth Normal Blood Pressure 141/76 H 141/76 H Blood Pressure Mean 97 93 Pulse Oximetry 89 L 94 100 Oxygen Delivery Method Room Air Nasal Cannula Oxygen Flow Rate 0 2 Sepsis Recent Fever Within 48 Hours No Sepsis New/Unexplained Change in Mental Status No Sepsis Action Taken by Nursing No Action Required Oxygen Flow Rate - Titration 2 Pulse Oximetry Post Tiitration 95 09/20/20 17:54 09/20/20 17:58 09/20/20 18:00 Temperature Temperature Source Pulse Rate 62 62 Pulse Rate from SpO2 Sensor 63 62 Respiratory Rate 15 15 Respiratory Effort / Characteristics Non-Labored Respiratory Depth Blood Pressure 156/81 H Blood Pressure Mean 109 Pulse Oximetry 92 99 99 Oxygen Delivery Method Nasal Cannula Oxygen Flow Rate 2 Sepsis Recent Fever Within 48 Hours Sepsis New/Unexplained Change in Mental Status Sepsis Action Taken by Nursing Oxygen Flow Rate - Titration Pulse Oximetry Post Tiitration 09/20/20 18:01 09/20/20 18:30 09/20/20 18:31 Temperature Temperature Source Pulse Rate 71 62 63 Pulse Rate from SpO2 Sensor 70 61 61 Respiratory Rate 15 26 H 19 Respiratory Effort / Characteristics Respiratory Depth Blood Pressure 144/85 H Blood Pressure Mean 91 Pulse Oximetry 100 99 99 Oxygen Delivery Method Oxygen Flow Rate Sepsis Recent Fever Within 48 Hours Sepsis New/Unexplained Change in Mental Status Sepsis Action Taken by Nursing Oxygen Flow Rate - Titration Pulse Oximetry Post Tiitration 09/20/20 19:00 09/20/20 19:01 Temperature Temperature Source Pulse Rate 63 62 Pulse Rate from SpO2 Sensor 65 62 Respiratory Rate 21 18 Respiratory Effort / Characteristics Respiratory Depth Blood Pressure 155/75 H Blood Pressure Mean 104 Pulse Oximetry 97 98 Oxygen Delivery Method Oxygen Flow Rate Sepsis Recent Fever Within 48 Hours Sepsis New/Unexplained Change in Mental Status Sepsis Action Taken by Nursing Oxygen Flow Rate - Titration Pulse Oximetry Post Tiitration Laboratory Data Attestation: I reviewed the patient's lab results. Result diagrams: 09/20/20 17:21 09/20/20 17:21 Lab Results 09/20/20 09/20/20 09/20/20 Range/Units 17:21 17:21 17:21 WBC 3.50 L (4.8-10.8) K/uL RBC 4.13 L (4.7-6.1) M/uL Hgb 12.8 L (14.0-18.0) g/dL Hct 38.0 L (42-52) % MCV 92.0 (80-100) fL MCH 31.0 (25-34) pg MCHC 33.7 (32-36) g/dL RDW Std Deviation 46.3 (36.4-46.3) fL RDW Coeff of Bradly 13.8 (11.5-14.5) % Plt Count 144 (130-400) K/uL MPV 9.5 (7.4-10.4) fL Immature Gran % (Auto) 0.3 % Neut % (Auto) 74.3 % Lymph % (Auto) 17.1 % [place] % (Auto) 8.3 % Eos % (Auto) 0.0 % Baso % (Auto) 0.0 % Neut # (Auto) 2.60 (1.4-6.5) K/uL Lymph # (Auto) 0.60 L (1.2-3.4) K/uL [place] # (Auto) 0.29 (0.11-0.59) K/uL Eos # (Auto) 0.00 (0-0.5) K/uL Baso # (Auto) 0.00 (0-0.2) K/uL Immature Gran # (Auto) 0.01 (0.00-0.02) K/uL ESR (0-14) mm/hr PT (9.0-12.0) Seconds INR (0.9-1.1) APTT (21.0-31.0) Seconds PTT Ratio Sodium 136 (136-145) mmol/L Potassium 3.8 (3.5-5.1) mmol/L Chloride 104 (98-107) mmol/L Carbon Dioxide 25 (21-32) mmol/L Anion Gap 7.0 (3-11) BUN 20 H (7-18) mg/dl Creatinine 0.91 (0.6-1.4) mg/dl Est Cr Clr Drug Dosing Not Reportable Est GFR ( Amer) 91.9 Est GFR (Non-Af Amer) 79.3 BUN/Creatinine Ratio 22.5 H (10-20) Glucose 146 H (70-99) mg/dl Lactate (0.4-2.0) mmol/L Calcium 8.3 L (8.5-10.1) mg/dl Phosphorus 2.8 (2.5-4.9) mg/dl Magnesium 2.2 (1.8-2.4) mg/dl Total Bilirubin 0.5 (0.2-1) mg/dl Direct Bilirubin 0.2 (0-0.2) mg/dl AST 41 H (15-37) U/L ALT 41 (12-78) U/L Alkaline Phosphatase 103 (45-117) U/L Troponin I < 0.015 (0-0.045) ng/ml C-Reactive Protein 3.47 H (0-0.29) mg/dl NT-Pro-B Natriuret Pep 534 (0-1800) pg/ml Total Protein 7.2 (6.4-8.2) gm/dl Albumin 3.0 L (3.4-5.0) gm/dl Globulin 4.2 H (2.5-4.0) gm/dl Albumin/Globulin Ratio 0.7 L (0.9-2) Lipase 133 (73-393) U/L Procalcitonin < 0.05 (0-0.5) ng/ml COVID-19 Eval Order SARS-CoV-2, RNA, NAAT (NEGATIVE) 09/20/20 09/20/20 09/20/20 Range/Units 17:21 17:21 17:21 WBC (4.8-10.8) K/uL RBC (4.7-6.1) M/uL Hgb (14.0-18.0) g/dL Hct (42-52) % MCV (80-100) fL MCH (25-34) pg MCHC (32-36) g/dL RDW Std Deviation (36.4-46.3) fL RDW Coeff of Bradly (11.5-14.5) % Plt Count (130-400) K/uL MPV (7.4-10.4) fL Immature Gran % (Auto) % Neut % (Auto) % Lymph % (Auto) % [place] % (Auto) % Eos % (Auto) % Baso % (Auto) % Neut # (Auto) (1.4-6.5) K/uL Lymph # (Auto) (1.2-3.4) K/uL [place] # (Auto) (0.11-0.59) K/uL Eos # (Auto) (0-0.5) K/uL Baso # (Auto) (0-0.2) K/uL Immature Gran # (Auto) (0.00-0.02) K/uL ESR 44 H (0-14) mm/hr PT 33.6 H (9.0-12.0) Seconds INR 3.4 H (0.9-1.1) APTT 47.3 H* (21.0-31.0) Seconds PTT Ratio 1.7 Sodium (136-145) mmol/L Potassium (3.5-5.1) mmol/L Chloride (98-107) mmol/L Carbon Dioxide (21-32) mmol/L Anion Gap (3-11) BUN (7-18) mg/dl Creatinine (0.6-1.4) mg/dl Est Cr Clr Drug Dosing Est GFR ( Amer) Est GFR (Non-Af Amer) BUN/Creatinine Ratio (10-20) Glucose (70-99) mg/dl Lactate 1.2 (0.4-2.0) mmol/L Calcium (8.5-10.1) mg/dl Phosphorus (2.5-4.9) mg/dl Magnesium (1.8-2.4) mg/dl Total Bilirubin (0.2-1) mg/dl Direct Bilirubin (0-0.2) mg/dl AST (15-37) U/L ALT (12-78) U/L Alkaline Phosphatase (45-117) U/L Troponin I (0-0.045) ng/ml C-Reactive Protein (0-0.29) mg/dl NT-Pro-B Natriuret Pep (0-1800) pg/ml Total Protein (6.4-8.2) gm/dl Albumin (3.4-5.0) gm/dl Globulin (2.5-4.0) gm/dl Albumin/Globulin Ratio (0.9-2) Lipase (73-393) U/L Procalcitonin (0-0.5) ng/ml COVID-19 Eval Order SARS-CoV-2, RNA, NAAT (NEGATIVE) 09/20/20 09/20/20 Range/Units 17:21 17:21 WBC (4.8-10.8) K/uL RBC (4.7-6.1) M/uL Hgb (14.0-18.0) g/dL Hct (42-52) % MCV (80-100) fL MCH (25-34) pg MCHC (32-36) g/dL RDW Std Deviation (36.4-46.3) fL RDW Coeff of Bradly (11.5-14.5) % Plt Count (130-400) K/uL MPV (7.4-10.4) fL Immature Gran % (Auto) % Neut % (Auto) % Lymph % (Auto) % [place] % (Auto) % Eos % (Auto) % Baso % (Auto) % Neut # (Auto) (1.4-6.5) K/uL Lymph # (Auto) (1.2-3.4) K/uL [place] # (Auto) (0.11-0.59) K/uL Eos # (Auto) (0-0.5) K/uL Baso # (Auto) (0-0.2) K/uL Immature Gran # (Auto) (0.00-0.02) K/uL ESR (0-14) mm/hr PT (9.0-12.0) Seconds INR (0.9-1.1) APTT (21.0-31.0) Seconds PTT Ratio Sodium (136-145) mmol/L Potassium (3.5-5.1) mmol/L Chloride (98-107) mmol/L Carbon Dioxide (21-32) mmol/L Anion Gap (3-11) BUN (7-18) mg/dl Creatinine (0.6-1.4) mg/dl Est Cr Clr Drug Dosing Est GFR ( Amer) Est GFR (Non-Af Amer) BUN/Creatinine Ratio (10-20) Glucose (70-99) mg/dl Lactate (0.4-2.0) mmol/L Calcium (8.5-10.1) mg/dl Phosphorus (2.5-4.9) mg/dl Magnesium (1.8-2.4) mg/dl Total Bilirubin (0.2-1) mg/dl Direct Bilirubin (0-0.2) mg/dl AST (15-37) U/L ALT (12-78) U/L Alkaline Phosphatase (45-117) U/L Troponin I (0-0.045) ng/ml C-Reactive Protein (0-0.29) mg/dl NT-Pro-B Natriuret Pep (0-1800) pg/ml Total Protein (6.4-8.2) gm/dl Albumin (3.4-5.0) gm/dl Globulin (2.5-4.0) gm/dl Albumin/Globulin Ratio (0.9-2) Lipase (73-393) U/L Procalcitonin (0-0.5) ng/ml COVID-19 Eval Order Covid19 IDNow atMMIC SARS-CoV-2, RNA, NAAT POSITIVE A* (NEGATIVE) Administered Medications Aspirin (Aspirin 81 Mg Ectab) 81 mg PO BID KENDRICK Stop: 10/21/20 01:04 Last Admin: 09/21/20 02:50 Dose: 81 mg Documented by: [id number] Remdesivir 200 mg/ Sodium (Chloride) 250 mls @ 125 mls/hr IV ONE ONE; Protocol Stop: 09/21/20 03:59 Last Admin: 09/21/20 02:50 Dose: 125 mls/hr Documented by: [id number] Metoprolol Succinate (Metoprolol Succ 25mg Ext Rel Tab) 25 mg PO BID KENDRICK Stop: 10/21/20 01:04 Last Admin: 09/21/20 02:50 Dose: 25 mg Documented by: [id number] Pantoprazole Sodium (Pantoprazole 40 Mg Tab) 40 mg PO BID KEDNRICK Stop: 10/21/20 01:04 Last Admin: 09/21/20 02:50 Dose: 40 mg Documented by: [id number] Discontinued Medications Albuterol (Albuterol Hfa 8 Gm Inhaler) 2 puffs INH NOW ONE Stop: 09/20/20 17:25 Last Admin: 09/20/20 18:46 Dose: 2 puffs Documented by: [id number] Dexamethasone (Dexamethasone Sod Inj 10 Mg/Ml Vial) 6 mg IV NOW ONE Stop: 09/20/20 17:25 Last Admin: 09/20/20 18:46 Dose: 6 mg Documented by: [id number] Guaifenesin (Guaifenesin 600 Mg Tabcr) 600 mg PO NOW STA Stop: 09/20/20 17:33 Last Admin: 09/20/20 18:46 Dose: 600 mg Documented by: [id number] Sodium Chloride (Nss) 500 mls @ 999 mls/hr IV .Q31M ONE Stop: 09/20/20 17:54 Last Infusion: 09/20/20 19:31 Dose: 0 mls/hr Documented by: [id number] Admin: 09/20/20 18:46 Dose: 999 mls/hr Documented by: [id number] Discharge Plan Visit Data Chief Complaint: Shortness of Breath/Dyspnea Stated Complaint: WEAK, SOB, COUGH ED Provider: Asael Dunlap Discharge Problem: Pneumonia due to COVID-19 virus, Dyspnea on minimal exertion, Hypoxia, Cardiac pacemaker in situ Patient Disposition: Admitted As Inpatient Discharge Instructions Interventions: ED Discharge Assessment Last Done: 09/20/20 23:34
[2020-09-20 17:42] LABS: Hemoglobin 12.8 g/dL (14.0-18.0); Immature Granulocytes # (auto) 0.01 K/uL (0.00-0.02); Immature Granulocytes % (auto) 0.3 %; Lymphocytes % (auto) 17.1 %; Mean Corpuscular Hgb Conc 33.7 g/dL (32-36); Mean Platelet Volume 9.5 fL (7.4-10.4); Monocytes # (auto) 0.29 K/uL (0.11-0.59); Monocytes % (auto) 8.3 %; Neutrophils % (auto) 74.3 %; Platelet Count 144 K/uL (130-400); RDW Coefficient of Variation 13.8 % (11.5-14.5); RDW Standard Deviation 46.3 fL (36.4-46.3); Red Blood Count 4.13 M/uL (4.7-6.1)
[2020-09-20 17:58] LABS: Alanine Aminotransferase 41 U/L (12-78); Aspartate Aminotransferase 41 U/L (15-37); BUN Creatinine Ratio 22.5 (10-20); Bilirubin Direct 0.2 mg/dl (0-0.2); Blood Urea Nitrogen 20 mg/dl (7-18); Calcium 8.3 mg/dl (8.5-10.1); Carbon Dioxide 25 mmol/L (21-32); Chloride 104 mmol/L (98-107); Est GFR (African American) 91.9; Est GFR (Non-African American) 79.3; Glucose 146 mg/dl (70-99); Lipase 133 U/L (73-393); Magnesium 2.2 mg/dl (1.8-2.4); Potassium 3.8 mmol/L (3.5-5.1); Sodium 136 mmol/L (136-145)
[2020-09-20 18:01] LABS: Albumin Globulin Ratio 0.7 (0.9-2); Alkaline Phosphatase 103 U/L (45-117); Bilirubin,Total 0.5 mg/dl (0.2-1); C Reactive Protein 3.47 mg/dl (0-0.29); Globulin 4.2 gm/dl (2.5-4.0); NT Pro B Type Natriuretic Pept 534 pg/ml (0-1800); Phosphorus 2.8 mg/dl (2.5-4.9); Total Protein 7.2 gm/dl (6.4-8.2); Troponin I < 0.015 ng/ml (0-0.045)
[2020-09-20 18:02] LABS: INR 3.4 (0.9-1.1); Partial Thromboplastin Ratio 1.7; Prothrombin Time 33.6 Seconds (9.0-12.0)
[2020-09-20 18:06] LABS: Partial Thromboplastin Time 47.3 Seconds (21.0-31.0)
--- NOTE | 2020-09-20 18:34 | XRay Report ---
XR chest 1V portable HISTORY: SEPSIS COMPARISON: Chest 11/21/2017. FINDINGS: No pneumothorax or no pleural effusions. The heart is normal in size. There are poststernot ravi changes and a left-sided dual-chamber pacemaker. No evidence for pulmonary edema. Faint hazy john pheral airspace opacities within the right midlung zone and left lung base. This favors an atypical/v iral pneumonia. No evidence for pulmonary edema. IMPRESSION: Faint patchy airspace opacities within the right midlung zone and the left lung base favor an atypica l/viral pneumonia. ACT 112: Negative or not required by law. Electronically signed by: Lamin Lal M.D. 09/20/2020 6:32 PM
[2020-09-20] MEDS ORDERED: POLYETHYLENE (MIRALAX) 17 GM PACK PO PRN (20:38)
[2020-09-20] MEDS ORDERED: ACETAMINOPHEN 325 MG TAB PO PRN (20:38)
--- NOTE | 2020-09-20 20:48 | History & Physical Report ---
Date of Service September 20, 2020 Assessment & Plan (1) Acute respiratory failure with hypoxia: (2) Pneumonia due to COVID-19 virus: COVID 19+ currently requiring 2L of O2 via NC ESR, CRP elevated dry cough, procalcitonin negative CXR - Faint patchy airspace opacities within the right midlung zone and the left lung base favor an atypical/viral pneumonia. DVT ppx - already on warfarin Dexamethasone 6 mg IV daily (started in ED) up to 10 days Remdesivir IV up to 5 days, given normal renal fx Consent for convalescent plasma obtained - will transfuse when available No Abx at this time but will re-evaluate daily (3) DM2 (diabetes mellitus, type 2): - hold home po meds - SSI - poss. future hyperglycemia d/t steroid use, cont. to monitor (4) AL on CPAP: - cont. cpap hs (5) Paroxysmal atrial fibrillation: - cont. home medications - metoprolol and warfarin - current INR 3.4 (6) Hypertension: - cont. home meds, metoprolol, amlodipine, lisinopril - BP at goal, cont. to monitor CAD s/p CABG - cont. ASA, home medications as above DVT ppx : therapeutic INR History of Present Illness Chief Complaint: shortness of breath, cough, +COVID 19 Primary Care Provider: Justa Lebron DO Mr. Lopez is an 79 y/o M with hx of CAD s/p CABG, HTN, HLD, DM type 2 (not on insulin), AL on CPAP, hx of prostate ca, paroxysmal Afib on coumadin, who presents with cough, shortness of breath for past 4 days. Pt was diagnosed with COVID 19. Pt was in contact with COVID 19 ppls (his was diagnosed in early September), pt was also hunting with someone later diagnosed with COVID 19. Pt reports dry cough for past 4 days, shortness of breath, no fevers or chills, but does report diarrhea on and off for the past 4 days. In the ED he was found hypoxic, at home reportedly 88& on RA, here currently requiring 2L of suppl. O2 via NC. He received decadron and albuterol in the Ed, reports that his breathing is better now. CRP and ESR were elevated. CXR showing faint patchy airspace opacities within the right midlung zone and the left lung base favor an atypical/viral pneumonia. procalcitonin was negative. Pt is currently laying in bed in NAD, denies any chest pain, also denies any swelling or weight gain. Allergies Allergy/AdvReac Type Severity Reaction Status Date / Time No Known Allergies Allergy Verified 02/21/19 18:11 Home Medications Medication Instructions Recorded Confirmed Type aspirin 81 mg PO BID 02/21/19 09/20/20 History glipizide 10 mg PO BID 02/21/19 09/20/20 History glucos sul [id number] 1 cap PO BID 02/21/19 09/20/20 History [Glucosamine Chondroitin] lisinopril 2.5 mg PO QAM 02/21/19 09/20/20 History metformin 500 mg PO QAM 02/21/19 09/20/20 History metoprolol succinate 25 mg PO BID 02/21/19 09/20/20 History nitroglycerin [Nitrostat] 0.4 mg SUBLINGUAL DIRECTED PRN 02/21/19 09/20/20 History omeprazole 20 mg PO BID 02/21/19 09/20/20 History potassium chloride [Klor-Con M10] 10 meq PO BID 02/21/19 09/20/20 History fluocinonide 1 applic TOPICAL DAILY PRN 09/20/20 09/20/20 History ketoconazole 1 applic TOPICAL .UD 09/20/20 09/20/20 History pioglitazone 45 mg PO DAILY 09/20/20 09/20/20 History warfarin 5 - 10 mg PO .DAILY/UD 09/20/20 09/20/20 History Past Med/Surg History Medical History Asthma DM2 (diabetes mellitus, type 2) DVT (deep venous thrombosis) "RLE" History of left heart catheterization (LHC) "60% stenosis mid left anterior descending " HLD (hyperlipidemia) Hyperlipidemia Hypertension AL on CPAP Paroxysmal atrial fibrillation Prostate cancer (10/22/17) Systolic ejection murmur Tachy-shanita syndrome Surgical History H/O esophagogastroduodenoscopy Hx of total knee arthroplasty S/P CABG x 1 S/P cholecystectomy S/P hip replacement S/P knee replacement Family History Other No pertinent family history Social History Smoking Status: Former smoker Cigarettes Per Day: 40; Preferred Language: Slovenian Communication Ability: Effective Visual Impairment: No Limitations Hearing Ability: Normal Beliefs That Will Affect Care: None marital status: Current Living Situation: Family Feels Safe at Home: Yes Review of Systems Review of Systems: All systems reviewed & are unremarkable except as noted in HPI & below Constitutional: + fatigue; no fever Eyes: no problem reported Ear, Nose, Mouth, Throat: no problem reported Respiratory: + cough and + dyspnea Cardiovascular: no chest pain, no palpitations and no edema Gastrointestinal: + diarrhea/loose stools; no abdominal pain, no nausea and no vomiting Genitourinary: no dysuria Musculoskeletal: no problem reported Integumentary: no problem reported Neurologic: no problem reported Psychiatric: no problem reported Endocrine: no problem reported Hematologic / Lymphatic: no problem reported Allergy / Immunological: no problem reported Physical Exam Physical Exam: Pt is laying in bed in NAD, using 2L of suppl. O2 via NC Constitutional: WD/WN, vitals as above no acute distress Eyes: PERRL, conjunctivae normal, anicteric sclerae ENMT: external ear and nose normal, oropharynx normal Neck: trachea midline, no thyromegaly Respiratory: normal respiratory effort, lungs clear to auscultation Auscultation: + rhonchi (very mild bibasilar); no crackles and no wheezes Cardiovascular: Rate/Rhythm: regular rate and regular rhythm Heart Sounds: + murmur (soft syst.) Chest (Breasts): Chest: normal inspection of chest Additional Comments: pacer Gastrointestinal (Abdomen): Inspection/Auscultation: abdomen normal to inspection and normal bowel sounds; abdomen not distended Percu ssion/Palpation: abdomen soft; abdomen nontender, no guarding and abdomen not rigid Musculoskeletal: no cyanosis or clubbing, extremities motor strength 5/5 Head/Neck/Chest: normocephalic and head atraumatic Skin: no rashes, warm and dry Neurologic: PERRL, EOMI, accommodation nl, no face palsy, no dysarthria moves all extremities Psychiatric: A+Ox3, euthymic affect Genitourinary: no CVA tenderness Lymphatic: no lymphedema Results & Data Results & Data ([facility]) Vital Signs (Past 12 Hours) Vital Signs Temp Pulse Resp BP Pulse Ox 09/20/20 19:01 62 18 155/75 H 98 09/20/20 19:00 63 21 97 09/20/20 18:31 63 19 144/85 H 99 09/20/20 18:30 62 26 H 99 09/20/20 18:01 71 15 100 09/20/20 18:00 62 15 156/81 H 99 09/20/20 17:58 62 15 99 09/20/20 17:54 92 09/20/20 17:30 62 16 141/76 H 100 09/20/20 17:24 78 20 94 09/20/20 16:36 37.2 C 79 20 141/76 H 89 L Laboratory Results 09/20/20 09/20/20 09/20/20 Range/Units 17:21 17:21 17:21 WBC (4.8-10.8) K/uL RBC (4.7-6.1) M/uL Hgb (14.0-18.0) g/dL Hct (42-52) % MCV (80-100) fL MCH (25-34) pg MCHC (32-36) g/dL RDW Std Deviation (36.4-46.3) fL RDW Coeff of Bradly (11.5-14.5) % Plt Count (130-400) K/uL MPV (7.4-10.4) fL Immature Gran % (Auto) % Neut % (Auto) % Lymph % (Auto) % [place] % (Auto) % Eos % (Auto) % Baso % (Auto) % Neut # (Auto) (1.4-6.5) K/uL Lymph # (Auto) (1.2-3.4) K/uL [place] # (Auto) (0.11-0.59) K/uL Eos # (Auto) (0-0.5) K/uL Baso # (Auto) (0-0.2) K/uL Immature Gran # (Auto) (0.00-0.02) K/uL ESR 44 H (0-14) mm/hr PT (9.0-12.0) Seconds INR (0.9-1.1) APTT (21.0-31.0) Seconds PTT Ratio Sodium (136-145) mmol/L Potassium (3.5-5.1) mmol/L Chloride (98-107) mmol/L Carbon Dioxide (21-32) mmol/L Anion Gap (3-11) BUN (7-18) mg/dl Creatinine (0.6-1.4) mg/dl Est Cr Clr Drug Dosing Est GFR ( Amer) Est GFR (Non-Af Amer) BUN/Creatinine Ratio (10-20) Glucose (70-99) mg/dl Lactate (0.4-2.0) mmol/L Calcium (8.5-10.1) mg/dl Phosphorus (2.5-4.9) mg/dl Magnesium (1.8-2.4) mg/dl Total Bilirubin (0.2-1) mg/dl Direct Bilirubin (0-0.2) mg/dl AST (15-37) U/L ALT (12-78) U/L Alkaline Phosphatase (45-117) U/L Troponin I (0-0.045) ng/ml C-Reactive Protein (0-0.29) mg/dl NT-Pro-B Natriuret Pep (0-1800) pg/ml Total Protein (6.4-8.2) gm/dl Albumin (3.4-5.0) gm/dl Globulin (2.5-4.0) gm/dl Albumin/Globulin Ratio (0.9-2) Lipase (73-393) U/L Procalcitonin (0-0.5) ng/ml COVID-19 Eval Order Covid19 IDNow Count includes the [facility] SARS-CoV-2, RNA, NAAT POSITIVE A* (NEGATIVE) 09/20/20 09/20/20 09/20/20 Range/Units 17:21 17:21 17:21 WBC 3.50 L (4.8-10.8) K/uL RBC 4.13 L (4.7-6.1) M/uL Hgb 12.8 L (14.0-18.0) g/dL Hct 38.0 L (42-52) % MCV 92.0 (80-100) fL MCH 31.0 (25-34) pg MCHC 33.7 (32-36) g/dL RDW Std Deviation 46.3 (36.4-46.3) fL RDW Coeff of Bradly 13.8 (11.5-14.5) % Plt Count 144 (130-400) K/uL MPV 9.5 (7.4-10.4) fL Immature Gran % (Auto) 0.3 % Neut % (Auto) 74.3 % Lymph % (Auto) 17.1 % [place] % (Auto) 8.3 % Eos % (Auto) 0.0 % Baso % (Auto) 0.0 % Neut # (Auto) 2.60 (1.4-6.5) K/uL Lymph # (Auto) 0.60 L (1.2-3.4) K/uL [place] # (Auto) 0.29 (0.11-0.59) K/uL Eos # (Auto) 0.00 (0-0.5) K/uL Baso # (Auto) 0.00 (0-0.2) K/uL Immature Gran # (Auto) 0.01 (0.00-0.02) K/uL ESR (0-14) mm/hr PT 33.6 H (9.0-12.0) Seconds INR 3.4 H (0.9-1.1) APTT 47.3 H* (21.0-31.0) Seconds PTT Ratio 1.7 Sodium (136-145) mmol/L Potassium (3.5-5.1) mmol/L Chloride (98-107) mmol/L Carbon Dioxide (21-32) mmol/L Anion Gap (3-11) BUN (7-18) mg/dl Creatinine (0.6-1.4) mg/dl Est Cr Clr Drug Dosing Est GFR ( Amer) Est GFR (Non-Af Amer) BUN/Creatinine Ratio (10-20) Glucose (70-99) mg/dl Lactate 1.2 (0.4-2.0) mmol/L Calcium (8.5-10.1) mg/dl Phosphorus (2.5-4.9) mg/dl Magnesium (1.8-2.4) mg/dl Total Bilirubin (0.2-1) mg/dl Direct Bilirubin (0-0.2) mg/dl AST (15-37) U/L ALT (12-78) U/L Alkaline Phosphatase (45-117) U/L Troponin I (0-0.045) ng/ml C-Reactive Protein (0-0.29) mg/dl NT-Pro-B Natriuret Pep (0-1800) pg/ml Total Protein (6.4-8.2) gm/dl Albumin (3.4-5.0) gm/dl Globulin (2.5-4.0) gm/dl Albumin/Globulin Ratio (0.9-2) Lipase (73-393) U/L Procalcitonin (0-0.5) ng/ml COVID-19 Eval Order SARS-CoV-2, RNA, NAAT (NEGATIVE) 09/20/20 09/20/20 Range/Units 17:21 17:21 WBC (4.8-10.8) K/uL RBC (4.7-6.1) M/uL Hgb (14.0-18.0) g/dL Hct (42-52) % MCV (80-100) fL MCH (25-34) pg MCHC (32-36) g/dL RDW Std Deviation (36.4-46.3) fL RDW Coeff of Bradly (11.5-14.5) % Plt Count (130-400) K/uL MPV (7.4-10.4) fL Immature Gran % (Auto) % Neut % (Auto) % Lymph % (Auto) % [place] % (Auto) % Eos % (Auto) % Baso % (Auto) % Neut # (Auto) (1.4-6.5) K/uL Lymph # (Auto) (1.2-3.4) K/uL [place] # (Auto) (0.11-0.59) K/uL Eos # (Auto) (0-0.5) K/uL Baso # (Auto) (0-0.2) K/uL Immature Gran # (Auto) (0.00-0.02) K/uL ESR (0-14) mm/hr PT (9.0-12.0) Seconds INR (0.9-1.1) APTT (21.0-31.0) Seconds PTT Ratio Sodium 136 (136-145) mmol/L Potassium 3.8 (3.5-5.1) mmol/L Chloride 104 (98-107) mmol/L Carbon Dioxide 25 (21-32) mmol/L Anion Gap 7.0 (3-11) BUN 20 H (7-18) mg/dl Creatinine 0.91 (0.6-1.4) mg/dl Est Cr Clr Drug Dosing Not Reportable Est GFR ( Amer) 91.9 Est GFR (Non-Af Amer) 79.3 BUN/Creatinine Ratio 22.5 H (10-20) Glucose 146 H (70-99) mg/dl Lactate (0.4-2.0) mmol/L Calcium 8.3 L (8.5-10.1) mg/dl Phosphorus 2.8 (2.5-4.9) mg/dl Magnesium 2.2 (1.8-2.4) mg/dl Total Bilirubin 0.5 (0.2-1) mg/dl Direct Bilirubin 0.2 (0-0.2) mg/dl AST 41 H (15-37) U/L ALT 41 (12-78) U/L Alkaline Phosphatase 103 (45-117) U/L Troponin I < 0.015 (0-0.045) ng/ml C-Reactive Protein 3.47 H (0-0.29) mg/dl NT-Pro-B Natriuret Pep 534 (0-1800) pg/ml Total Protein 7.2 (6.4-8.2) gm/dl Albumin 3.0 L (3.4-5.0) gm/dl Globulin 4.2 H (2.5-4.0) gm/dl Albumin/Globulin Ratio 0.7 L (0.9-2) Lipase 133 (73-393) U/L Procalcitonin < 0.05 (0-0.5) ng/ml COVID-19 Eval Order SARS-CoV-2, RNA, NAAT (NEGATIVE) Diagnostic Findings CXR IMPRESSION: Faint patchy airspace opacities within the right midlung zone and the left lung base favor an atypical/viral pneumonia. Code Status & VTE Plan VTE Prophylaxis Plan VTE Prophylaxis will be ordered: Yes
[2020-09-21] MEDS ORDERED: WARFARIN SOD 5 MG TAB PO SCH (01:05)
[2020-09-21] MEDS ORDERED: GLUCOSE 10 TABS/TUBE PO PRN (01:05)
[2020-09-21] MEDS ORDERED: NON-FORMULARY MEDICATION (Fluocinonide 0.05 % Solution) TOP PRN (01:05)
[2020-09-21] MEDS ORDERED: ACETAMINOPHEN 325 MG TAB PO ONE (01:05)
[2020-09-21] MEDS ORDERED: GLUCOSE 40% GEL 15 GM TUBE PO PRN (01:05)
[2020-09-21] MEDS ORDERED: GLUCAGON FOR INJ 1 MG VIAL SQ PRN (01:05)
[2020-09-21] MEDS ORDERED: CARBOHYDRATES FOR HYPOGLYCEMIA PO PRN (01:05)
[2020-09-21] MEDS ORDERED: DEXTROSE 50% 50 ML SYRINGE IV PRN (01:05)
[2020-09-21] MEDS ORDERED: FUROSEMIDE 40 MG/4 ML VIAL IV PRN (01:05)
[2020-09-21] MEDS ORDERED: PATIENT'S HEIGHT AND/OR WEIGHT NEEDED SCH (01:15)
[2020-09-21] MEDS ORDERED: REMDESIVIR 200 MG in SODIUM CHLORIDE 0.9% 210 ML IV ONE (02:00)
[2020-09-21 02:18] LABS: Appearance Urine Clear (Clear); Bacteria Urine Automated Negative (Negative); Bilirubin Urine Negative (Negative); Blood Urine Negative (Negative); Color Urine Dark Yellow; Epithelial Cell Urine Auto 0-5 /lpf (0-5); Glucose Urine UA Negative (Negative); Ketones Urine 2+ (Negative); Leukocyte Esterase Urine Negative (Negative); Nitrite Urine Negative (Negative); Protein Urine 1+ (Negative); RBC Urine Automated 0-4 /hpf (0-4); Specific Gravity Urine 1.024 (1.000-1.030); Urobilinogen Urine Negative (Negative)
[2020-09-21] MEDS: PANTOprazole 40 MG TAB PO SCH ×3 (02:50→20:32)
[2020-09-21] MEDS: METOPROLOL SUCC 25MG EXT REL TAB PO SCH ×3 (02:50→20:32)
[2020-09-21] MEDS: ASPIRIN 81 MG ECTAB PO SCH ×3 (02:50→20:32)
[2020-09-21] MEDS: SODIUM CHLORIDE 0.9% 10ML FLUSH IV SCH (05:31)
[2020-09-21 07:02] LABS: Hematocrit (blood only) 34.9 % (42-52); Hemoglobin 11.9 g/dL (14.0-18.0); Mean Corpuscular Hemoglobin 31.6 pg (25-34); Mean Corpuscular Hgb Conc 34.1 g/dL (32-36); Mean Corpuscular Volume 92.6 fL (80-100); Mean Platelet Volume 9.2 fL (7.4-10.4); Platelet Count 125 K/uL (130-400); RDW Coefficient of Variation 13.6 % (11.5-14.5); RDW Standard Deviation 45.4 fL (36.4-46.3); Red Blood Count 3.77 M/uL (4.7-6.1); White Blood Count 1.86 K/uL (4.8-10.8)
[2020-09-21 07:28] LABS: Albumin Level 2.6 gm/dl (3.4-5.0); BUN Creatinine Ratio 24.2 (10-20); Bilirubin Direct 0.2 mg/dl (0-0.2); Calcium 8.3 mg/dl (8.5-10.1); Creatinine Clr Calc Pharmacy 96.2 ml/min; Est GFR (Non-African American) 87.1; Magnesium 2.1 mg/dl (1.8-2.4); Potassium 4.3 mmol/L (3.5-5.1)
[2020-09-21 07:33] LABS: Albumin Globulin Ratio 0.7 (0.9-2); Bilirubin,Total 0.5 mg/dl (0.2-1); Globulin 3.7 gm/dl (2.5-4.0); Phosphorus 3.4 mg/dl (2.5-4.9); Total Protein 6.3 gm/dl (6.4-8.2)
[2020-09-21 07:34] LABS: INR 3.6 (0.9-1.1); Prothrombin Time 35.4 Seconds (9.0-12.0)
[2020-09-21 07:35] LABS: Estimated Average Glucose 134 mg/dl; Hemoglobin A1C 6.3 % (4.5-5.6)
[2020-09-21] MEDS: INSULIN ASPART 100 UNITS/ML 3 ML PEN SC SCH ×4 (08:53→20:32)
[2020-09-21] MEDS: dexAMETHasone 6 MG in SYRINGE 0 ML IV SCH (08:54)
[2020-09-21] MEDS: lisinopril 2.5 MG TAB PO SCH (08:55)
--- NOTE | 2020-09-21 14:37 | Electrocardiogram Report ---
Test Reason : Blood Pressure : / mmHG Vent. Rate : 062 BPM Atrial Rate : 061 BPM P-R Int : 214 ms QRS Dur : 142 ms QT Int : 436 ms P-R-T Axes : 000 082 070 degrees QTc Int : 442 ms Atrial-paced rhythm with prolonged AV conduction Right bundle branch block Possible Inferior infarct (cited on or before 28-MAY-2016) Poor R wave progression, consider anterior [place] vs. lead placement vs. LVH Abnormal ECG When compared with ECG of 25-DEC-2017 11:03, Premature atrial complexes are no longer Present Confirmed by John Benton [id number]) on 09/21/2020 2:36:50 PM Referred By: REFERRED SELF Confirmed By:John Benton
[2020-09-21] MEDS ORDERED: VANCOMYCIN CONSULT ACTIVE PRN (17:28)
[2020-09-21] MEDS ORDERED: VANCOMYCIN HCL 2,500 MG in SODIUM CHLORIDE 0.9% 500 ML IV ONE (17:45)
--- NOTE | 2020-09-21 18:36 | Hospitalist Progress Note ---
Date of Service September 21, 2020 Assessment & Plan (1) Acute respiratory failure with hypoxia: (2) Pneumonia due to COVID-19 virus: Present on admission with SOB associated with cough COVID 19 tested positive CXR on admission showed faint patchy airspace opacities within the right midlung zone and the left lung base favor an atypical/viral pneumonia. ESR, CRP elevated on admission Procalcitonin negative Continue Dexametahsone 6mg to complete x 10days course and Remdesivir day 2 to c omplete 5 days course Continue monitor liver enzymes while on Remdesivir Will follow inflammatory marker CRP, ESR, ferritin and LDH Convalescent plasma discussed with patient on admission and today- Consent completed and signed Continue oxygen supplement Pt was advised to continue to prone (3) Gram-positive cocci bacteremia: Blood cx collected on admission positive for gram positive cocci Lactic acid, procalcitonin negative on admission Will start on IV vanco for now, if it due to contamination, will d/c Vanco IV Will repeat blood cx Follow up CBC and will repeat procalcitonin in am (4) DM2 (diabetes mellitus, type 2): BS elevated due to steroid PO diabetes med on hold Will adjust insulin sliding scale Continue monitor BS (5) AL on CPAP: Continue cpap hs (6) Paroxysmal atrial fibrillation: Rate control with metoprolol Will skip coumadin today dose since INR 3.6 Continue monitor PT/INR (7) Hypertension: Continue home meds, metoprolol, amlodipine, lisinopril BP control CAD s/p CABG Continue ASA, metoprolol Stable DVT ppx : supratherapeutic INR 3.6 today On coumadin CODE STATUS FULL CODE Admission and Anticipated Discharge Date Admission Date: September 20, 2020 Subjective Pt was seen and examined for follow up for COVID 19 Lying in bed with no distress with no distress Pt said that his breathing slightly improves He said that he continues to cough Spoke to and provided with updates Denies any chest pain, palpitation, dizziness and fever Physical Exam Physical Exam: General- No acute distress Head- atraumatic Eyes- PERRL, EOMI, ENT- oropharynx clear Neck- supple, no JVD Lungs- Diminished BS Heart- regular rhythm; no murmur Abdomen- normal bowel sounds, soft, nontender Extremities- no calf tenderness Neuro- alert, oriented x 3; PERRL, EOMI; no facial palsy; no dysarthria Skin- warm & dry Results & Data Results & Data ([facility]) Vital Signs (Past 12 Hours) Vital Signs Temp Pulse Pulse Resp BP BP Pulse Ox 09/21/20 17:12 36.5 C 61 20 123/77 95 09/21/20 16:37 36.5 C 63 20 116/81 95 09/21/20 15:37 36.3 C L 60 18 116/71 97 09/21/20 15:36 61 09/21/20 15:35 36.3 C L 60 18 116/71 97 09/21/20 15:07 36.5 C 66 18 113/68 94 09/21/20 14:52 36.4 C L 80 21 124/70 99 09/21/20 14:34 36.6 C 73 18 152/83 H 98 09/21/20 11:37 36.6 C 60 18 132/73 97 09/21/20 08:00 80 09/21/20 07:37 36.4 C L 65 20 150/87 H 98
[2020-09-21] MEDS: INSULIN GLARGINE SOLOSTAR 100 UNITS/ML 3 ML PEN SC SCH (21:43)
[2020-09-22] MEDS: SODIUM CHLORIDE 0.9% 10ML FLUSH IV SCH (02:12)
[2020-09-22] MEDS: VANCOMYCIN HCL 1,500 MG in SODIUM CHLORIDE 0.9% 500 ML IV SCH ×2 (03:22→16:37)
[2020-09-22 07:04] LABS: Basophils # (auto) 0.01 K/uL (0-0.2); Basophils % (auto) 0.2 %; Hematocrit (blood only) 36.5 % (42-52); Hemoglobin 12.4 g/dL (14.0-18.0); Lymphocytes # (auto) 0.76 K/uL (1.2-3.4); Lymphocytes % (auto) 14.6 %; Mean Corpuscular Hemoglobin 31.2 pg (25-34); Mean Corpuscular Volume 91.9 fL (80-100); Mean Platelet Volume 9.3 fL (7.4-10.4); Monocytes % (auto) 5.8 %; Neutrophils # (auto) 4.13 K/uL (1.4-6.5); Neutrophils % (auto) 79.4 %; Platelet Count 140 K/uL (130-400); RDW Coefficient of Variation 13.3 % (11.5-14.5); RDW Standard Deviation 44.2 fL (36.4-46.3); Red Blood Count 3.97 M/uL (4.7-6.1)
[2020-09-22 07:18] LABS: INR 3.2 (0.9-1.1); Prothrombin Time 31.6 Seconds (9.0-12.0)
[2020-09-22 07:36] LABS: Albumin Level 2.8 gm/dl (3.4-5.0); BUN Creatinine Ratio 25.9 (10-20); Bilirubin Direct 0.2 mg/dl (0-0.2); C Reactive Protein 1.53 mg/dl (0-0.29); Calcium 8.8 mg/dl (8.5-10.1); Creatinine Clr Calc Pharmacy 82.6 ml/min; Est GFR (African American) 95.4; Est GFR (Non-African American) 82.3
[2020-09-22 07:40] LABS: Albumin Globulin Ratio 0.7 (0.9-2); Bilirubin,Total 0.6 mg/dl (0.2-1); Ferritin 234.4 ng/ml (8-388); Globulin 3.8 gm/dl (2.5-4.0); Total Protein 6.6 gm/dl (6.4-8.2)
--- NOTE | 2020-09-22 08:34 | Pharmacy Report ---
Pharmacy Abx Dose Short Note - Date of Service September 22, 2020 - Assessment & Plan Assessment 79 year old M receiving vancomycin for treatment of 1 of 2 blood cultures positive for Gram positive cocci Day # 1 of antimicrobial therapy. Plan Vancomycin * population pharmacokinetics suggest a half-life of 9.9 hours with elimination constant of 0.07 hr-1 * start vancomycin 2500 mg IV x 1 (25 mg/kg) then vancomycin 1500 mg IV q12 hours (14 mg/kg) * expect some accumulation due to body habitus * check trough around 0400 dose on 09/23 Pharmacy will continue to follow and will adjust dose/frequency as necessary. Thank you.
[2020-09-22] MEDS: ASPIRIN 81 MG ECTAB PO SCH ×2 (09:07→21:10)
[2020-09-22] MEDS: dexAMETHasone 6 MG in SYRINGE 0 ML IV SCH (09:07)
[2020-09-22] MEDS: lisinopril 2.5 MG TAB PO SCH (09:08)
[2020-09-22] MEDS: PANTOprazole 40 MG TAB PO SCH ×2 (09:08→21:10)
[2020-09-22] MEDS: METOPROLOL SUCC 25MG EXT REL TAB PO SCH ×2 (09:10→21:10)
[2020-09-22] MEDS: INSULIN ASPART 100 UNITS/ML 3 ML PEN SC SCH ×4 (09:46→21:12)
[2020-09-22] MEDS: REMDESIVIR 100 MG in SODIUM CHLORIDE 0.9% 230 ML IV SCH (12:54)
--- NOTE | 2020-09-22 17:10 | Hospitalist Progress Note ---
Date of Service September 22, 2020 Assessment & Plan (1) Acute respiratory failure with hypoxia: -as per the 09/20/2020 admission history and physical "Mr. Lopez is an 79 y/o M with hx of CAD s/p CABG, HTN, HLD, DM type 2 (not on insulin), AL on CPAP, hx of prostate ca, paroxysmal Afib on coumadin, who presents with cough, shortness of breath for past 4 days. Pt was diagnosed with COVID 19. Pt was in contact with COVID 19 ppls (his was diagnosed in early September), pt was also hunting with someone later diagnosed with COVID 19. Pt reports dry cough for past 4 days, shortness of breath, no fevers or chills, but does report diarrhea on and off for the past 4 days. In the ED he was found hypoxic, at home reportedly 88& on RA, here currently requiring 2L of suppl. O2 via NC. He received decadron and albuterol in the Ed, reports that his breathing is better now. CRP and ESR were elevated. CXR showing faint patchy airspace opacities within the right midlung zone and the left lung base favor an atypical/viral pneumonia. procalcitonin was negative." -patient examined on 09/22/2020 while on room air. Patient reports subjectively his breathing is feeling better. Patient denies acute chest discomforts. Patient denies abdomen pain. No nausea. No vomiting. he denies other symptoms on review of systems (2) Pneumonia due to COVID-19 virus: -09/20/2020 history as above, positive COVID-19 test on admission, admission CXR "Faint patchy airspace opacities within the right midlung zone and the left lung base favor an atypical/viral pneumonia." -patient started on dexamethasone 6 mg IV daily empiricially and remdesivir daily empirically -respiratory symptoms appears to be resolving. will plan repeat CXR on 09/23/2020 and 2 step test (3) Gram-positive cocci bacteremia: -Lactic acid, procalcitonin negative on admission -1 of 2 bottles in a set of admission blood cultures returned on 09/22/2020 as gram positive cocci, previous hospitalist Dr. 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 current use of insulin -currently holding the home dose metformin and glipizide -on insulin sliding scale (5) AL on CPAP: -CPAP qhs (6) Paroxysmal atrial fibrillation: chronic anticoagulation with coumadin supratherapeutic INR History of coronary artery disease with CABG in the past -continue rate control with metoprolol -recent hospital INR of 3.2, 3.6, 3.2 - hold the coumadin (7) Hypertension: -Continue home meds, metoprolol, amlodipine, lisinopril DVT ppx : supratherapeutic INR 3.2 on 09/22/2020, hold the coumadin CODE STATUS FULL CODE Admission and Anticipated Discharge Date Admission Date: September 20, 2020 Subjective -patient examined on 09/22/2020 while on room air. Patient reports subjectively his breathing is feeling better. Patient denies acute chest discomforts. Patient denies abdomen pain. No nausea. No vomiting. he denies other symptoms on review of systems Review of Systems Review of Systems: All systems reviewed & are unremarkable except as noted in Subjective Physical Exam Constitutional: cooperative and comfortable Eyes: PERRL, conjunctivae normal, anicteric sclerae EOM intact bilaterally ENMT: external ear and nose normal, oropharynx normal Neck: normal visual inspection Respiratory: normal respiratory effort Cardiovascular: Rate/Rhythm: + bradycardic Gastrointestinal (Abdomen): normal bowel sounds, soft, nontender, no hepatosplenomegaly Musculoskeletal: Head/Neck/Chest: normocephalic and head atraumatic Neurologic: PERRL, EOMI, accommodation nl, no face palsy, no dysarthria CN's II-XI intact bilaterally Psychiatric: A+Ox3, euthymic affect Results & Data Results & Data ([facility]) Vital Signs (Past 12 Hours) Vital Signs Temp Pulse Pulse Resp BP BP Pulse Ox 09/22/20 16:05 36.7 C 64 18 119/63 95 09/22/20 11:31 36.6 C 64 18 129/63 95 09/22/20 09:00 72 09/22/20 07:46 36.4 C L 65 18 126/75 93
[2020-09-22] MEDS: INSULIN GLARGINE SOLOSTAR 100 UNITS/ML 3 ML PEN SC SCH (21:12)
[2020-09-23] MEDS ORDERED: VANCOMYCIN TROUGH ONE (03:30)
[2020-09-23] MEDS: SODIUM CHLORIDE 0.9% 10ML FLUSH IV SCH (03:35)
[2020-09-23 04:10] LABS: Hematocrit (blood only) 36.2 % (42-52); Hemoglobin 12.6 g/dL (14.0-18.0); Immature Granulocytes # (auto) 0.01 K/uL (0.00-0.02); Immature Granulocytes % (auto) 0.2 %; Lymphocytes # (auto) 0.76 K/uL (1.2-3.4); Lymphocytes % (auto) 14.4 %; Mean Corpuscular Hemoglobin 32.2 pg (25-34); Mean Corpuscular Hgb Conc 34.8 g/dL (32-36); Mean Corpuscular Volume 92.6 fL (80-100); Mean Platelet Volume 9.7 fL (7.4-10.4); Monocytes # (auto) 0.25 K/uL (0.11-0.59); Monocytes % (auto) 4.7 %; Neutrophils # (auto) 4.25 K/uL (1.4-6.5); Neutrophils % (auto) 80.7 %; Platelet Count 145 K/uL (130-400); RDW Coefficient of Variation 13.4 % (11.5-14.5); RDW Standard Deviation 44.3 fL (36.4-46.3); Red Blood Count 3.91 M/uL (4.7-6.1); White Blood Count 5.27 K/uL (4.8-10.8)
[2020-09-23 04:20] LABS: INR 2.9 (0.9-1.1); Prothrombin Time 28.5 Seconds (9.0-12.0)
[2020-09-23 04:32] LABS: Albumin Level 2.6 gm/dl (3.4-5.0); BUN Creatinine Ratio 27.5 (10-20); Calcium 8.3 mg/dl (8.5-10.1); Creatinine Clr Calc Pharmacy 88.9 ml/min; Est GFR (African American) 98.3; Est GFR (Non-African American) 84.8; Potassium 3.6 mmol/L (3.5-5.1)
[2020-09-23 04:34] LABS: Albumin Globulin Ratio 0.7 (0.9-2); Bilirubin,Total 0.5 mg/dl (0.2-1); Globulin 3.5 gm/dl (2.5-4.0); Total Protein 6.1 gm/dl (6.4-8.2)
[2020-09-23] MEDS: VANCOMYCIN HCL 1,500 MG in SODIUM CHLORIDE 0.9% 500 ML IV SCH (04:36)
--- NOTE | 2020-09-23 08:16 | XRay Report ---
XR chest 1V portable CLINICAL HISTORY: follow lung infiltrates COMPARISON STUDY: 09/20/2020 FINDINGS: The cardiac and mediastinal contours remain stable. There are postsurgical changes of a mid line sternotomy. There is a left subclavian dual-chamber central venous pacemaker. There are subtle b ilateral pulmonary airspace opacities most pronounced within the right midlung zone and left lung bas e. There are equivocal trace pleural effusions. There is no failure.[ IMPRESSION: Persistent subtle bilateral pulmonary airspace opacities, essentially unchanged from the prior study ACT 112: Negative or not required by law. Electronically signed by: Phan Bailey M.D. 09/23/2020 8:14 AM
[2020-09-23] MEDS: PANTOprazole 40 MG TAB PO SCH (08:22)
[2020-09-23] MEDS: METOPROLOL SUCC 25MG EXT REL TAB PO SCH (08:22)
[2020-09-23] MEDS: dexAMETHasone 6 MG in SYRINGE 0 ML IV SCH (08:22)
[2020-09-23] MEDS: ASPIRIN 81 MG ECTAB PO SCH (08:22)
[2020-09-23] MEDS: INSULIN ASPART 100 UNITS/ML 3 ML PEN SC SCH ×2 (08:23→12:31)
[2020-09-23] MEDS: lisinopril 2.5 MG TAB PO SCH (08:23)
[2020-09-23 11:15] VITALS: TEMP 98.1; O2SAT 96
[2020-09-23] MEDS: REMDESIVIR 100 MG in SODIUM CHLORIDE 0.9% 230 ML IV SCH (12:29)
--- NOTE | 2020-09-23 13:06 | Hospitalist Progress Note ---
Date of Service September 23, 2020 Assessment & Plan (1) Acute respiratory failure with hypoxia: -as per the 09/20/2020 admission history and physical "Mr. Lopez is an 79 y/o M with hx of CAD s/p CABG, HTN, HLD, DM type 2 (not on insulin), AL on CPAP, hx of prostate ca, paroxysmal Afib on coumadin, who presents with cough, shortness of breath for past 4 days. Pt was diagnosed with COVID 19. Pt was in contact with COVID 19 ppls (his was diagnosed in early September), pt was also hunting with someone later diagnosed with COVID 19. Pt reports dry cough for past 4 days, shortness of breath, no fevers or chills, but does report diarrhea on and off for the past 4 days. In the ED he was found hypoxic, at home reportedly 88& on RA, here currently requiring 2L of suppl. O2 via NC. He received decadron and albuterol in the Ed, reports that his breathing is better now. CRP and ESR were elevated. CXR showing faint patchy airspace opacities within the right midlung zone and the left lung base favor an atypical/viral pneumonia. procalcitonin was negative." -patient examined on 09/22/2020 while on room air. Patient reports subjectively his breathing is feeling better. Patient denies acute chest discomforts. Patient denies abdomen pain. No nausea. No vomiting. he denies other symptoms on review of systems -continues to be on room air (2) Pneumonia due to COVID-19 virus: -09/20/2020 history as above, positive COVID-19 test on admission, ad [place] CXR "Faint patchy airspace opacities within the right midlung zone and the left lung base favor an atypical/viral pneumonia." -patient started on dexamethasone 6 mg IV daily empiricially and remdesivir daily empirically -respiratory symptoms appears to be resolving. -repeat CXR on 09/23/2020 Persistent subtle bilateral pulmonary airspace opacities, essentially unchanged from the prior study; Patient passed the 2 step test and does not require supplementary oxygen at rest or with ambulation discharge to home to care of family. Patient's positive COVID-19 test on 09/20/2020 and patient advised to self quarantine for 14 days or wear mask when in public discharge medications sent electronically to [place] of prednisone taper 40 mg daily x 3 days then 20 mg daily x 3 days and then stop of warfarin (coumadin) 5 mg daily upcoming appointments 09/27/2020 3:00 PM Provider Justa Lebron DO Department [facility] (Patient should confirm this as a telephone/video conference appointment) 10/04/2020 10:40 AM Provider Leeroy Santoyo DO Department Ophthalmology, [facility] 10/06/2020 3:00 PM Provider [facility] 10/14/2020 11:20 AM Provider Justa Lebron DO Department [facility] (3) Gram-positive cocci bacteremia: RULED OUT -Lactic acid and procalcitonin negative on admission -1 of 2 bottles in a set of admission blood cultures returned on 09/22/2020 as gram positive cocci, previous hospitalist Dr. Toussaint ordered empiric vancomycin, follow the repeat blood cultures drawn on 09/22/2020, was continued empiric Vancomycin which was stopped on 09/23/2020 because the resulting microbe of Abiotrophia/Granulicatella Sp is likely a contaminant -other cultures no growth (4) DM2 (diabetes mellitus, type 2): Type 2 diabetes mellitus without custodial current use of insulin -currently holding the home dose metformin and glipizide while in the hospital -was giving insulin sliding scale while in the hospital -can resume home dose diabetes medications on discharge (5) AL on CPAP: -CPAP qhs (6) Paroxysmal atrial fibrillation: chronic anticoagulation with coumadin supratherapeutic INR History of coronary artery disease with CABG in the past -continue rate control with metoprolol -recent hospital INR of 3.2, 3.6, 3.2 and the coumadin were held -INR 2.9 on 09/23/2020, resume coumadin as 5 mg daily which is lower dosing than patient's typical 10 mg daily at home (7) Hypertension: -Continue home meds, metoprolol, amlodipine, lisinopril History of Prostate Cancer DVT ppx : supratherapeutic INR 2.9 on 09/23/2020, continue coumadin as 5 mg daily CODE STATUS FULL CODE Admission and Anticipated Discharge Date Admission Date: September 20, 2020 Subjective Patient seen and examine at bedside and remains on room air. no acute distress. no chest pain. no abdomen pain. no dizziness. no headache. denies other symptoms on review of systems Review of Systems Review of Systems: All systems reviewed & are unremarkable except as noted in Subjective Physical Exam Constitutional: cooperative and comfortable Eyes: PERRL, conjunctivae normal, anicteric sclerae EOM intact bilaterally ENMT: external ear and nose normal, oropharynx normal Neck: normal visual inspection Respiratory: normal respiratory effort Cardiovascular: Rate/Rhythm: + bradycardic Gastrointestinal (Abdomen): normal bowel sounds, soft, nontender, no hepatosplenomegaly Musculoskeletal: Head/Neck/Chest: normocephalic and head atraumatic Neurologic: PERRL, EOMI, accommodation nl, no face palsy, no dysarthria CN's II-XI intact bilaterally Psychiatric: A+Ox3, euthymic affect Results & Data Results & Data ([facility]) Vital Signs (Past 12 Hours) Vital Signs Temp Pulse Pulse Resp BP Pulse Ox 09/23/20 11:15 36.7 C 64 18 141/79 H 96 09/23/20 08:00 71 09/23/20 07:43 36.6 C 62 18 120/79 94 09/23/20 04:13 36.7 C 61 18 147/82 H 96
--- NOTE | 2020-09-23 13:44 | Discharge Summary ---
Date of Service September 23, 2020 Admission HPI Per Admitting Provider Mr. Lopez is an 79 y/o M with hx of CAD s/p CABG, HTN, HLD, DM type 2 (not on insulin), AL on CPAP, hx of prostate ca, paroxysmal Afib on coumadin, who presents with cough, shortness of breath for past 4 days. Pt was diagnosed with COVID 19. Pt was in contact with COVID 19 ppls (his was diagnosed in early September), pt was also hunting with someone later diagnosed with COVID 19. Pt reports dry cough for past 4 days, shortness of breath, no fevers or chills, but does report diarrhea on and off for the past 4 days. In the ED he was found hypoxic, at home reportedly 88& on RA, here currently requiring 2L of suppl. O2 via NC. He received decadron and albuterol in the Ed, reports that his breathing is better now. CRP and ESR were elevated. CXR showing faint patchy airspace opacities within the right midlung zone and the left lung base favor an atypical/viral pneumonia. procalcitonin was negative. Pt is currently laying in bed in NAD, denies any chest pain, also denies any swelling or weight gain. Principal Diagnosis Acute respiratory failure with hypoxia Pneumonia due to COVID-19 virus Type 2 diabetes mellitus without group home current use of insulin AL on CPAP Paroxysmal atrial fibrillation, chronic anticoagulation with coumadin, supratherapeutic INR other diagnosis Hypertension History of coronary artery disease with CABG in the past History of Prostate Cancer Discharge Exam Constitutional cooperative and comfortable Eyes PERRL, conjunctivae normal, anicteric sclerae EOM intact bilaterally ENMT external ear and nose normal, oropharynx normal Neck normal visual inspection Respiratory normal respiratory effort Cardiovascular Rate/Rhythm: + bradycardic Gastrointestinal (Abdomen) normal bowel sounds, soft, nontender, no hepatosplenomegaly Musculoskeletal Head/Neck/Chest: normocephalic and head atraumatic Neurologic PERRL, EOMI, accommodation nl, no face palsy, no dysarthria CN's II-XI intact bilaterally Psychiatric A+Ox3, euthymic affect Discharge Data Allergies Allergy/AdvReac Type Severity Reaction Status Date / Time No Known Allergies Allergy Verified 02/21/19 18:11 Consultations 09/20/20 18:59 ED Decision to Admit Stat 09/20/20 20:40 Consult Case Management - Discharge Planning Routine Hospital Course (1) Acute respiratory failure with hypoxia: -as per the 09/20/2020 admission history and physical "Mr. Lopez is an 79 y/o M with hx of CAD s/p CABG, HTN, HLD, DM type 2 (not on insulin), AL on CPAP, hx of prostate ca, paroxysmal Afib on coumadin, who presents with cough, shortness of breath for past 4 days. Pt was diagnosed with COVID 19. Pt was in contact with COVID 19 ppls (his was diagnosed in early September), pt was also hunting with someone later diagnosed with COVID 19. Pt reports dry cough for past 4 days, shortness of breath, no fevers or chills, but does report diarrhea on and off for the past 4 days. In the ED he was found hypoxic, at home reportedly 88& on RA, here currently requiring 2L of suppl. O2 via NC. He received decadron and albuterol in the Ed, reports that his breathing is better now. CRP and ESR were elevated. CXR showing faint patchy airspace opacities within the right midlung zone and the left lung base favor an atypical/viral pneumonia. procalcitonin was negative." -patient examined on 09/22/2020 while on room air. Patient reports subjectively his breathing is feeling better. Patient denies acute chest discomforts. Patient denies abdomen pain. No nausea. No vomiting. he denies other symptoms on review of systems -continues to be on room air (2) Pneumonia due to COVID-19 virus: -09/20/2020 history as above, positive COVID-19 test on admission, admission CXR "Faint patchy airspace opacities within the right midlung zone and the left lung base favor an atypical/viral pneumonia." -patient started on dexamethasone 6 mg IV daily empiricially and remdesivir daily empirically -respiratory symptoms appears to be resolving. -repeat CXR on 09/23/2020 Persistent subtle bilateral pulmonary airspace opacities, essentially unchanged from the prior study; Patient passed the 2 step test and does not require supplementary oxygen at rest or with ambulation discharge to home to care of family. Patient's positive COVID-19 test on 09/20/2020 and patient advised to self quarantine for 14 days or wear mask when in public discharge medications [place] of pred[place]one taper 40 mg daily x 3 days then 20 mg daily x 3 days and then stop of warfarin (coumadin) 5 mg daily upcoming appointments 09/27/2020 3:00 PM Provider Justa Lebron DO Department [facility] (Patient should confirm this as a telephone/video conference appointment) 10/04/2020 10:40 AM Provider Leeroy Santoyo DO Department Ophthalmology, [facility] 10/06/2020 3:00 PM Provider [facility] [place] [facility] 10/14/2020 11:20 AM Provider Justa Lebron DO Department [facility] (3) Gram-positive cocci bacteremia: RULED OUT -Lactic acid and procalcitonin negative on admission -1 of 2 bottles in a set of admission blood cultures returned on 09/22/2020 as gram positive cocci, previous hospitalist Dr. Toussaint ordered empiric vancomycin, follow the repeat blood cultures drawn on 09/22/2020, was continued empiric Vancomycin which was stopped on 09/23/2020 because the resulting microbe of Abiotrophia/Granulicatella Sp is likely a contaminant -other cultures no growth (4) DM2 (diabetes mellitus, type 2): Type 2 diabetes mellitus without group home current use of insulin -currently holding the home dose metformin and glipizide while in the hospital -was giving insulin sliding scale while in the hospital -can resume home dose diabetes medications on discharge (5) AL on CPAP: -CPAP qhs (6) Paroxysmal atrial fibrillation: chronic anticoagulation with coumadin supratherapeutic INR History of coronary artery disease with CABG in the past -continue rate control with metoprolol -recent hospital INR of 3.2, 3.6, 3.2 and the coumadin were held -INR 2.9 on 09/23/2020, resume coumadin as 5 mg daily which is lower dosing than patient's typical 10 mg daily at home (7) Hypertension: -Continue home meds, metoprolol, amlodipine, lisinopril History of Prostate Cancer DVT ppx : supratherapeutic INR 2.9 on 09/23/2020, continue coumadin as 5 mg daily CODE STATUS FULL CODE Total Time Total Time Spent Total Time Spent (In Minutes): 40 minutes Total Time Includes: Examination of the Patient, Discharge Planning, Medication Reconciliation and Communication With Other Providers Discharge Plan Discharge Items Patient Disposition: Home - Self-Care Reason For Visit: COVID-19 Discharge Diagnosis: Acute respiratory failure with hypoxia Pneumonia due to COVID-19 virus Type 2 diabetes mellitus without group home current use of insulin AL on CPAP other diagnosis Paroxysmal atrial fibrillation, chronic anticoagulation with coumadin, supratherapeutic INR Hypertension History of coronary artery disease with CABG in the past History of Prostate Cancer Condition on Discharge: Good Activity: Per Instructions section Lifting: Gradually increase as tolerated Bathing: No limitations Exercise/Sports: Gradually increase as tolerated Driving/Machine Use: No limitations Non-emergency contact: Primary Care Provider Call non-emergency contact if: you have any medication questions Follow-up/Referrals: Justa Lebron DO [Primary Care Provider] - Diet: Carb Consistent or DM2 and Heart Healthy Addtl Attending Provider Instructions: discharge to home to care of family. Patient's positive COVID-19 test on 09/20/2020 and patient advised to self quarantine for 14 days or wear mask when in public discharge medications sent [place] of prednisone taper 40 mg daily x 3 days then 20 mg daily x 3 days and then stop of warfarin (coumadin) 5 mg daily upcoming appointments 09/27/2020 3:00 PM Provider Justa Lebron DO Department [facility] (Patient should confirm this as a telephone/video conference appointment) 10/04/2020 10:40 AM Provider Leeroy Santoyo DO Department Ophthalmology, [facility] 10/06/2020 3:00 PM Provider [facility] 10/14/2020 11:20 AM Provider DO Sherie Colon [facility] Pending Studies at Discharge: No Stand-Alone Forms: My [employer], Smoking Cessation Medications and DC Order Prescriptions: New prednisone 20 mg Tablet 40 mg PO DAILY 6 Days Qty: 9 RF: 0 warfarin 5 mg Tablet 5 mg PO DAILY 30 Days Qty: 30 RF: 0 Continued glipizide 10 mg tablet extended release 24hr 10 mg PO BID RF: 0 omeprazole 20 mg capsule,delayed release(DR/EC) 20 mg PO BID RF: 0 aspirin 81 mg tablet,chewable 81 mg PO BID RF: 0 metoprolol succinate 25 mg tablet extended release 24 hr 25 mg PO BID RF: 0 metformin 500 mg tablet extended release 24 hr 500 mg PO QAM RF: 0 lisinopril 2.5 mg tablet 2.5 mg PO QAM RF: 0 potassium chloride [Klor-Con M10] 10 mEq tablet,ER particles/crystals 10 meq PO BID RF: 0 Glucosamine Chondroitin 550-30-1 mg Capsule 1 cap PO BID RF: 0 nitroglycerin [Nitrostat] 0.4 mg Tablet, Sublingual 0.4 mg sublingual DIRECTED PRN (Reason: Chest Pain) RF: 0 pioglitazone 45 mg tablet 45 mg PO DAILY RF: 0 fluocinonide 0.05 % Solution 1 applic TOPICAL DAILY PRN (Reason: Itching) RF: 0 ketoconazole 2 % shampoo 1 applic TOPICAL .UD RF: 0 Discontinued warfarin 5 mg tablet 5 - 10 mg PO .DAILY/UD RF: 0 Discharge Orders: Discharge Order (Routine); Ordered 09/23/20 Ordered By: Josesito Fofana/Other Patient Handouts: COVID-19 Home Care, High Blood Sugar (Hyperglycemia), Hypoglycemia (Low Blood Sugar), Managing Type 2 Diabetes Admission Data Admit Date/Time: 09/20/20 20:39 Attending Provider: Josesito Thorne Admit Provider: Hardy Ramires Primary Care Provider: Justa Lebron Other Providers: Hardy Ramires
[2020-09-23 14:25] VITALS: BP 128/69; PULSE 64
[2020-09-23] MEDS ORDERED: WARFARIN SOD 5 MG TAB PO SCH (16:00)
[2020-09-24] MEDS ORDERED: predniSONE 20 MG TAB PO SCH (09:00)
== END 2020-09-23 15:39 | disposition home or self-care (01) | DRG 177 ==
LOC: ED 16:57 → 2S 20:39 → SUATTDRO 20:39 → 2S 23:34

== ENCOUNTER 2021-01-08 16:29 | Inpatient (IN) ==
[2021-01-08 17:41] LABS: Basophils # (auto) 0.01 K/uL (0-0.2); Basophils % (auto) 0.2 %; Eosinophils # (auto) 0.04 K/uL (0-0.5); Eosinophils % (auto) 0.7 %; Hematocrit (blood only) 36.8 % (42-52); Hemoglobin 12.7 g/dL (14.0-18.0); Immature Granulocytes # (auto) 0.01 K/uL (0.00-0.02); Immature Granulocytes % (auto) 0.2 %; Lymphocytes # (auto) 1.08 K/uL (1.2-3.4); Lymphocytes % (auto) 18.8 %; Mean Corpuscular Hemoglobin 30.4 pg (25-34); Mean Corpuscular Hgb Conc 34.5 g/dL (32-36); Mean Platelet Volume 9.1 fL (7.4-10.4); Monocytes # (auto) 0.59 K/uL (0.11-0.59); Monocytes % (auto) 10.3 %; Neutrophils # (auto) 4.01 K/uL (1.4-6.5); Neutrophils % (auto) 69.8 %; Platelet Count 150 K/uL (130-400); RDW Coefficient of Variation 14.3 % (11.5-14.5); RDW Standard Deviation 46.4 fL (36.4-46.3); Red Blood Count 4.18 M/uL (4.7-6.1); White Blood Count 5.74 K/uL (4.8-10.8)
--- NOTE | 2021-01-08 17:41 | Emergency Department Note ---
History of Present Illness General Chief complaint: Chest Pain Stated complaint: CHEST PAIN , AFIB Time Seen by Provider: 01/08/21 17:16 Source: patient, family ( who is at the bedside) and EMS (I did talk to EMS prior to hospital arrival and gave ALS medical command) Mode of arrival: EMS Limitations: no limitations History of Present Illness DThis patient is a 80-year-old white male with multiple medical problems comes in after a chest tightness off and on for last several days. It lasted few minutes. Nothing seems to make it better or worse. Rest and exertion. He felt extremely tired over the last week he has had a little more shortness of breath. He feels weak generally nonfocal however. He called his the paramedics when he was at camp this afternoon around 2:00 and said he felt miserable and had chest tightness and shortness of breath. He has had no fever he is at the [employer] x2 as well as having Covid in the past. When the paramedics call me he was in rapid A. fib in the 160s they given 20 mg of Cardizem IV per my command and the rate resolved. He is now in a paced rhythm. His rate is 60. He has bales d no syncope. No missed meds or change in medications he is chronically on Coumadin for history of blood clots. No blood or melena stool no lightheadedness or dizziness. No lower extremity pain or swelling. No abdominal pain or melena. He has slight headache earlier none now. Has had a lot of gas and belching all week. He did see his cardiology PA last week and was doing well at the time. Home Medications Medication Instructions Recorded Confirmed Type Glucosamine Chondroitin 1 cap PO BID 02/21/19 01/08/21 History aspirin 81 mg PO QAM 02/21/19 01/08/21 History glipizide 10 mg PO BID 02/21/19 01/08/21 History lisinopril 2.5 mg PO QAM 02/21/19 01/08/21 History metformin 500 mg PO QAM 02/21/19 01/08/21 History metoprolol succinate 25 mg PO BID 02/21/19 01/08/21 History nitroglycerin [Nitrostat] 0.4 mg SUBLINGUAL DIRECTED PRN 02/21/19 01/08/21 History omeprazole 20 mg PO BID 02/21/19 01/08/21 History potassium chloride [Klor-Con M10] 10 meq PO BID 02/21/19 01/08/21 History fluocinonide 1 applic TOPICAL DAILY PRN 09/20/20 01/08/21 History ketoconazole 1 applic TOPICAL .UD 09/20/20 01/08/21 History pioglitazone 45 mg PO QAM 09/20/20 01/08/21 History acetaminophen [Tylenol] 975 mg PO QID PRN 01/08/21 01/08/21 History ascorbic acid (vitamin C) 0 mg PO DAILY 01/08/21 01/08/21 History cholecalciferol (vitamin D3) 0 mcg PO DAILY 01/08/21 01/08/21 History Allergies Allergy/AdvReac Type Severity Reaction Status Date / Time No Known Allergies Allergy Verified 01/08/21 18:58 Past Med/Surg History Medical History Asthma DM2 (diabetes mellitus, type 2) DVT (deep venous thrombosis) "RLE" Dyspnea on minimal exertion History of left heart catheterization (LHC) "60% stenosis mid left anterior descending " HLD (hyperlipidemia) Hyperlipidemia Hypertension Hypoxia AL on CPAP Paroxysmal atrial fibrillation Prostate cancer (10/22/17) Systolic ejection murmur Tachy-shanita syndrome Surgical History H/O esophagogastroduodenoscopy Hx of total knee arthroplasty S/P CABG x 1 S/P cholecystectomy S/P hip replacement S/P knee replacement Family History Other No pertinent family history Social History Smoking Status: Former smoker Cigarettes Per Day: 40; Hx Alcohol Use: No Hx Substance Use: No Preferred Language: [place] Communication Ability: Effective Visual Impairment: No Limitations Hearing Ability: Normal Beliefs That Will Affect Care: None marital status: Current Living Situation: Spouse Other Information That Helps Us Care for You: No Feels Safe at Home: Yes Safety Concerns: Feels Safe At This Time Assistive Devices: Special Shoe Review of Systems A total of 10 systems reviewed and were otherwise negative Physical Exam Vital Signs Vital Signs - 24 hr 01/08/21 16:52 01/08/21 16:55 01/08/21 16:58 Pulse Rate 65 63 65 Pulse Rate from SpO2 Sensor 63 65 Pulse Rhythm Regular Pulse Strength Normal Respiratory Rate 18 17 18 Respiratory Effort / Characteristics Non-Labored Respiratory Depth Normal Blood Pressure 107/66 107/66 Blood Pressure Mean 79 79 Blood Pressure Position Lying Pulse Oximetry 93 92 93 Oxygen Delivery Method Room Air Sepsis Recent Fever Within 48 Hours No Sepsis New/Unexplained Change in Mental Status N/A Sepsis Action Taken by Nursing No Action Required 01/08/21 17:00 01/08/21 17:01 01/08/21 17:10 Pulse Rate 62 63 60 Pulse Rate from SpO2 Sensor 62 62 60 Pulse Rhythm Pulse Strength Respiratory Rate 16 19 14 Respiratory Effort / Characteristics Respiratory Depth Blood Pressure 121/61 Blood Pressure Mean 81 Blood Pressure Position Pulse Oximetry 92 94 93 Oxygen Delivery Method Sepsis Recent Fever Within 48 Hours Sepsis New/Unexplained Change in Mental Status Sepsis Action Taken by Nursing 01/08/21 17:20 01/08/21 17:30 01/08/21 17:31 Pulse Rate 60 63 61 Pulse Rate from SpO2 Sensor 60 64 61 Pulse Rhythm Pulse Strength Respiratory Rate 20 16 19 Respiratory Effort / Characteristics Respiratory Depth Blood Pressure 110/62 Blood Pressure Mean 78 Blood Pressure Position Pulse Oximetry 94 93 94 Oxygen Delivery Method Sepsis Recent Fever Within 48 Hours Sepsis New/Unexplained Change in Mental Status Sepsis Action Taken by Nursing 01/08/21 17:40 01/08/21 17:44 01/08/21 17:50 Pulse Rate 60 62 Pulse Rate from SpO2 Sensor 60 63 Pulse Rhythm Pulse Strength Respiratory Rate 16 11 L Respiratory Effort / Characteristics Respiratory Depth Blood Pressure Blood Pressure Mean Blood Pressure Position Pulse Oximetry 91 96 91 Oxygen Delivery Method Room Air Sepsis Recent Fever Within 48 Hours Sepsis New/Unexplained Change in Mental Status Sepsis Action Taken by Nursing 01/08/21 18:11 01/08/21 18:15 01/08/21 18:20 Pulse Rate 61 63 Pulse Rate from SpO2 Sensor 63 61 63 Pulse Rhythm Pulse Strength Respiratory Rate 13 13 Respiratory Effort / Characteristics Respiratory Depth Blood Pressure 124/61 Blood Pressure Mean 82 Blood Pressure Position Pulse Oximetry 96 96 95 Oxygen Delivery Method Sepsis Recent Fever Within 48 Hours Sepsis New/Unexplained Change in Mental Status Sepsis Action Taken by Nursing 01/08/21 18:30 01/08/21 18:31 01/08/21 19:00 Pulse Rate 60 61 60 Pulse Rate from SpO2 Sensor 60 61 60 Pulse Rhythm Pulse Strength Respiratory Rate 17 14 15 Respiratory Effort / Characteristics Respiratory Depth Blood Pressure 116/75 127/61 Blood Pressure Mean 88 83 Blood Pressure Position Pulse Oximetry 96 95 92 Oxygen Delivery Method Sepsis Recent Fever Within 48 Hours Sepsis New/Unexplained Change in Mental Status Sepsis Action Taken by Nursing 01/08/21 19:30 01/08/21 20:00 Pulse Rate 60 60 Pulse Rate from SpO2 Sensor 60 61 Pulse Rhythm Pulse Strength Respiratory Rate 16 20 Respiratory Effort / Characteristics Respiratory Depth Blood Pressure 129/71 124/68 Blood Pressure Mean 90 86 Blood Pressure Position Pulse Oximetry 90 93 Oxygen Delivery Method Sepsis Recent Fever Within 48 Hours Sepsis New/Unexplained Change in Mental Status Sepsis Action Taken by Nursing General: Well developed well nourished older male who appears in no acute distress, breathing comfortably on room air. Normal speech HEENT: Normal cephalic atraumatic. Pupils are equal round and reactive to light. Extraocular movements are intact. Oropharynx is pink with moist mucous membranes. No swelling of the mouth lips or tongue. Neck: Supple with a midline trachea. No meningeal signs or stiffness, no JVD or bruits. No Stridor. Chest: Clear to auscultation bilaterally. No wheezes or rhonchi. No increased work of breathing. Heart: Regular rate and rhythm without murmurs or gallops. Abdomen: Soft nontender, nondistended without rebound guarding or rigidity. Extremities: No cyanosis clubbing or edema. No calf tenderness or assymetry Spine/Back. Non tender to palpation. No CVA tenderness Skin: Good turgor without rashes. Neurologic exam: Cranial nerves two through 12 are intact. Motor and sensation are intact and symmetrical throughout. Course Administered Medications Potassium Chloride 40 meq/ (Sodium Chloride) 1,020 mls @ 40 mls/hr IV .Q24H ONE Stop: 01/09/21 21:59 Last Admin: 01/08/21 22:33 Dose: 40 mls/hr Documented by: [id number] Insulin Aspart (Insulin Aspart 100 Units/Ml 3 Ml Pen) 0 units SC ACHS [facility] Stop: 02/07/21 21:31 Last Admin: 01/08/21 22:29 Dose: 1 units Documented by: [id number] Cosigned by: [id number] Metoprolol Succinate (Metoprolol Succ 25mg Ext Rel Tab) 25 mg PO BID [facility] Stop: 02/07/21 21:31 Last Admin: 01/08/21 22:34 Dose: 25 mg Documented by: [id number] Pantoprazole Sodium (Pantoprazole 40 Mg Tab) 40 mg PO BID [facility] Stop: 02/07/21 21:31 Last Admin: 01/08/21 22:34 Dose: 40 mg Documented by: [id number] Discontinued Medications Ioversol (Optiray 320 125ml) 119 ml IV ONCE ONE Stop: 01/08/21 18:08 Last Admin: 01/08/21 18:07 Dose: 119 ml Documented by: [id number] Potassium Chloride (Potassium Chloride Crtab 20 Meq Tabcr) 40 meq PO NOW STA Stop: 01/08/21 19:31 Last Admin: 01/08/21 20:36 Dose: 40 meq Documented by: [id number] Medical Decision Making Differential Diagnosis Arrhythmia, acute coronary syndrome, PE, anemia, sepsis, thyroid disease, electrolyte or metabolic abnormality, intracranial process, complication related to prostate cancer Medical Records Attestation: I reviewed the patient's medical records. Home Medications Current Medication List: was personally reviewed by me Laboratory Data Attestation: I reviewed the patient's lab results. Result diagrams: 01/08/21 16:50 01/08/21 16:50 Lab Results 01/08/21 01/08/21 01/08/21 Range/Units 16:50 16:50 16:50 WBC 5.74 (4.8-10.8) K/uL RBC 4.18 L (4.7-6.1) M/uL Hgb 12.7 L (14.0-18.0) g/dL Hct 36.8 L (42-52) % MCV 88.0 (80-100) fL MCH 30.4 (25-34) pg MCHC 34.5 (32-36) g/dL RDW Std Deviation 46.4 H (36.4-46.3) fL RDW Coeff of Bradly 14.3 (11.5-14.5) % Plt Count 150 (130-400) K/uL MPV 9.1 (7.4-10.4) fL Immature Gran % (Auto) 0.2 % Neut % (Auto) 69.8 % Lymph % (Auto) 18.8 % [place] % (Auto) 10.3 % Eos % (Auto) 0.7 % Baso % (Auto) 0.2 % Neut # (Auto) 4.01 (1.4-6.5) K/uL Lymph # (Auto) 1.08 L (1.2-3.4) K/uL [place] # (Auto) 0.59 (0.11-0.59) K/uL Eos # (Auto) 0.04 (0-0.5) K/uL Baso # (Auto) 0.01 (0-0.2) K/uL Immature Gran # (Auto) 0.01 (0.00-0.02) K/uL PT Cancelled INR Cancelled APTT Cancelled PTT Ratio Cancelled Sodium 137 (136-145) mmol/L Potassium 3.7 (3.5-5.1) mmol/L Chloride 107 (98-107) mmol/L Carbon Dioxide 24 (21-32) mmol/L Anion Gap 6.0 (3-11) BUN 19 H (7-18) mg/dl Creatinine 0.91 (0.6-1.4) mg/dl Est Cr Clr Drug Dosing 76.3 ml/min Est GFR ( Amer) 91.3 Est GFR (Non-Af Amer) 78.8 BUN/Creatinine Ratio 20.6 H (10-20) Glucose 154 H (70-99) mg/dl Calcium 8.4 L (8.5-10.1) mg/dl Magnesium (1.8-2.4) mg/dl Total Bilirubin 0.4 (0.2-1) mg/dl AST 27 (15-37) U/L ALT 27 (12-78) U/L Alkaline Phosphatase 117 (45-117) U/L Troponin I < 0.015 (0-0.045) ng/ml Total Protein 6.5 (6.4-8.2) gm/dl Albumin 3.1 L (3.4-5.0) gm/dl Globulin 3.4 (2.5-4.0) gm/dl Albumin/Globulin Ratio 0.9 (0.9-2) Lipase 109 (73-393) U/L TSH (0.300-4.500) uIu/ml COVID-19 Eval Order SARS-CoV-2 (PCR) (Negative) Influenza Type A (PCR) (Neg) Influenza Type B (PCR) (Neg) RSV (RT-PCR) (Neg) 01/08/21 01/08/21 01/08/21 Range/Units 18:17 18:17 19:41 WBC (4.8-10.8) K/uL RBC (4.7-6.1) M/uL Hgb (14.0-18.0) g/dL Hct (42-52) % MCV (80-100) fL MCH (25-34) pg MCHC (32-36) g/dL RDW Std Deviation (36.4-46.3) fL RDW Coeff of Bradly (11.5-14.5) % Plt Count (130-400) K/uL MPV (7.4-10.4) fL Immature Gran % (Auto) % Neut % (Auto) % Lymph % (Auto) % [place] % (Auto) % Eos % (Auto) % Baso % (Auto) % Neut # (Auto) (1.4-6.5) K/uL Lymph # (Auto) (1.2-3.4) K/uL [place] # (Auto) (0.11-0.59) K/uL Eos # (Auto) (0-0.5) K/uL Baso # (Auto) (0-0.2) K/uL Immature Gran # (Auto) (0.00-0.02) K/uL PT INR APTT PTT Ratio Sodium (136-145) mmol/L Potassium (3.5-5.1) mmol/L Chloride (98-107) mmol/L Carbon Dioxide (21-32) mmol/L Anion Gap (3-11) BUN (7-18) mg/dl Creatinine (0.6-1.4) mg/dl Est Cr Clr Drug Dosing ml/min Est GFR ( Amer) Est GFR (Non-Af Amer) BUN/Creatinine Ratio (10-20) Glucose (70-99) mg/dl Calcium (8.5-10.1) mg/dl Magnesium 2.2 (1.8-2.4) mg/dl Total Bilirubin (0.2-1) mg/dl AST (15-37) U/L ALT (12-78) U/L Alkaline Phosphatase (45-117) U/L Troponin I < 0.015 (0-0.045) ng/ml Total Protein (6.4-8.2) gm/dl Albumin (3.4-5.0) gm/dl Globulin (2.5-4.0) gm/dl Albumin/Globulin Ratio (0.9-2) Lipase (73-393) U/L TSH 0.625 (0.300-4.500) uIu/ml COVID-19 Eval Order CovFluRsv at [facility] SARS-CoV-2 (PCR) NEGATIVE (Negative) Influenza Type A (PCR) Negative (Neg) Influenza Type B (PCR) Negative (Neg) RSV (RT-PCR) Negative (Neg) 01/08/21 Range/Units 19:41 WBC (4.8-10.8) K/uL RBC (4.7-6.1) M/uL Hgb (14.0-18.0) g/dL Hct (42-52) % MCV (80-100) fL MCH (25-34) pg MCHC (32-36) g/dL RDW Std Deviation (36.4-46.3) fL RDW Coeff of Bradly (11.5-14.5) % Plt Count (130-400) K/uL MPV (7.4-10.4) fL Immature Gran % (Auto) % Neut % (Auto) % Lymph % (Auto) % [place] % (Auto) % Eos % (Auto) % Baso % (Auto) % Neut # (Auto) (1.4-6.5) K/uL Lymph # (Auto) (1.2-3.4) K/uL [place] # (Auto) (0.11-0.59) K/uL Eos # (Auto) (0-0.5) K/uL Baso # (Auto) (0-0.2) K/uL Immature Gran # (Auto) (0.00-0.02) K/uL PT 19.8 H INR 2.1 H APTT 40.6 H PTT Ratio 1.5 Sodium (136-145) mmol/L Potassium (3.5-5.1) mmol/L Chloride (98-107) mmol/L Carbon Dioxide (21-32) mmol/L Anion Gap (3-11) BUN (7-18) mg/dl Creatinine (0.6-1.4) mg/dl Est Cr Clr Drug Dosing ml/min Est GFR ( Amer) Est GFR (Non-Af Amer) BUN/Creatinine Ratio (10-20) Glucose (70-99) mg/dl Calcium (8.5-10.1) mg/dl Magnesium (1.8-2.4) mg/dl Total Bilirubin (0.2-1) mg/dl AST (15-37) U/L ALT (12-78) U/L Alkaline Phosphatase (45-117) U/L Troponin I (0-0.045) ng/ml Total Protein (6.4-8.2) gm/dl Albumin (3.4-5.0) gm/dl Globulin (2.5-4.0) gm/dl Albumin/Globulin Ratio (0.9-2) Lipase (73-393) U/L TSH (0.300-4.500) uIu/ml COVID-19 Eval Order SARS-CoV-2 (PCR) (Negative) Influenza Type A (PCR) (Neg) Influenza Type B (PCR) (Neg) RSV (RT-PCR) (Neg) Imaging Data Attestation: I personally reviewed and interpreted this imaging study as follows: Radiologist's Impression: XR chest 1V portable HISTORY: Atypical Chest Pain COMPARISON: Chest 09/23/2020. FINDINGS: No pneumothorax. The heart remains mildly enlarged. There is a left- sided dual-chamber pacemaker and poststernotomy changes. Hazy bibasilar densities persist. No evidence for pulmonary edema. Suspect trace bilateral pleural effusions. IMPRESSION: No change in the cardiomegaly and bibasilar airspace opacities. HEAD CT NONCONTRAST CT DOSE: HISTORY: weakness TECHNIQUE: Multiaxial CT images of the head were performed without the use of intravenous contrast. Automated exposure control was utilized for this study. A dose lowering technique was utilized adhering to the principles of ALARA. Comparison: Head CT 08/18/2017. Findings: The paranasal sinuses and mastoid air cells are clear. The calvarium and skull base are intact. There is no mass, hematoma, midline shift, acute infarct. White matter hypodensity is nonspecific but suggestive of microvascular ischemic change. The ventricles and sulci demonstrate mild age-related involutional changes. Impression: No significant change compared to the prior study. No acute intracranial abnormality. CHEST CTA for PULMONARY ARTERIES CT DOSE: 1387.92 mGy.cm HISTORY: Atypical Chest Pain, eval for PE TECHNIQUE: Multiaxial CT images of the chest were performed following the intravenous administration of contrast to evaluate the pulmonary arteries. Maxi mal intensity projection images were also obtained. A dose lowering technique was utilized adhering to the principles of ALARA. COMPARISON STUDY: Chest CTA 11/21/2017. FINDINGS: Heterogeneous thyroid gland. No pleural or pericardial effusions. Interval development of mediastinal and bilateral hilar lymphadenopathy. Dominant right paratracheal lymph node measures 3.4 cm. Dominant right hilar lymph node measures 2.9 cm. There are poststernotomy changes and a left-sided pacemaker. No suspicious lytic or blastic osseous lesions. Normal caliber esophagus. Possible left hepatic lobe lesions measuring up to 1.4 cm. The heart is enlarged. No filling defects within the pulmonary arteries to suggest pulmonary embolus. There is moderate narrowing within the proximal right middle and lower lobe pulmonary arteries due to the mass effect from the adjacent lymphadenopathy. Bilateral gynecomastia. No pneumothorax. There is also moderate narrowing of the right middle lobe bronchus and right lower lobe bronchus due to the mass effect from the enlarged lymph node. There are multiple bilateral pulmonary nodules. The majority of these are in a peripheral distribution. There are greater than 20 nodules in total. Dominant nodule within the base of the right middle lobe on image 105 measures 2.6 cm. IMPRESSION: 1. No evidence for pulmonary embolus. 2. Mediastinal and hilar lymphadenopathy with multiple bilateral pulmonary nodules as described above. This is consistent with neoplastic/metastatic d isease. 3. There is moderate narrowing of the right middle and lower lobe bronchi and pulmonary arteries due to the mass effect from the enlarged right hilar lymph node. 4. Possible left hepatic lobe lesions. This could also represent additional sites of metastatic disease. 5. Additional findings as described above. MDM Narrative This patient comes in as described above. He was placed on a laboratory monitor in room B3. I did give ALS medical command as he was in rapid A. fib this has resolved his rapid A. fib. He is in a paced rhythm now in 660 he is doing well. He has had intermittent chest pain. he has multiple medical problems include h istory of cardiac disease, prostate cancer as well as blood clotting disorder and is on anticoagulation this required extensive work-up. IV asked established I did order CAT scan of his head as well as his chest EKG chest x-ray and multiple blood testing. He was reassessed frequently. His is at the bedside I talked her at length as well. He has no white count or fever discussed infection. He has a mild anemia of 12.7. He has no significant electrolyte or metabolic abnormalities. His EKG does not suggest acute coronary syndrome or current arrhythmia and his troponin is negative. He did have a CAT scan of the head as well as the chest. His troponin was not elevated. CAT scan of his head is unremarkable, there is no evidence of suggest acute intracranial hemorrhage or acute neurologic event. His CT of his chest shows no PE he does have multiple lymphadenopathy and nodes concerning for possible neoplastic disease. I do think he needs to be admitted for cardiac rule out and evaluation as he did present with rapid A. fib and intermittent chest pain have consulted Dr. Ruiz to see him for these measures Continuous cardiac monitoring: Due to his history of chest pain and arrhythmia, order was placed in the EMR for continuous cardiac monitoring. He was noted to be in a paced rhythm rate of 60 upon my interpretation.. 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
[2021-01-08 17:48] LABS: Alanine Aminotransferase 27 U/L (12-78); Albumin Level 3.1 gm/dl (3.4-5.0); Aspartate Aminotransferase 27 U/L (15-37); BUN Creatinine Ratio 20.6 (10-20); Blood Urea Nitrogen 19 mg/dl (7-18); Calcium 8.4 mg/dl (8.5-10.1); Carbon Dioxide 24 mmol/L (21-32); Chloride 107 mmol/L (98-107); Creatinine Clr Calc Pharmacy 76.3 ml/min; Est GFR (African American) 91.3; Est GFR (Non-African American) 78.8; Glucose 154 mg/dl (70-99); Lipase 109 U/L (73-393); Potassium 3.7 mmol/L (3.5-5.1); Sodium 137 mmol/L (136-145)
[2021-01-08 18:01] LABS: Albumin Globulin Ratio 0.9 (0.9-2); Alkaline Phosphatase 117 U/L (45-117); Bilirubin,Total 0.4 mg/dl (0.2-1); Globulin 3.4 gm/dl (2.5-4.0); Total Protein 6.5 gm/dl (6.4-8.2); Troponin I < 0.015 ng/ml (0-0.045)
--- NOTE | 2021-01-08 18:04 | XRay Report ---
XR chest 1V portable HISTORY: Atypical Chest Pain COMPARISON: Chest 09/23/2020. FINDINGS: No pneumothorax. The heart remains mildly enlarged. There is a left-sided dual-chamber pace maker and poststernotomy changes. Hazy bibasilar densities persist. No evidence for pulmonary edema. Suspect trace bilateral pleural effusions. IMPRESSION: No change in the cardiomegaly and bibasilar airspace opacities. ACT 112: Negative or not required by law. Electronically signed by: Lamin Lal M.D. 01/08/2021 6:02 PM
[2021-01-08] MEDS ORDERED: OPTIRAY 320 125ml IV ONE (18:07)
--- NOTE | 2021-01-08 18:17 | CT Scan Report ---
HEAD CT NONCONTRAST CT DOSE: HISTORY: weakness TECHNIQUE: Multiaxial CT images of the head were performed without the use of intravenous contrast. A utomated exposure control was utilized for this study. A dose lowering technique was utilized adheri ng to the principles of ALARA. Comparison: Head CT 08/18/2017. Findings: The paranasal sinuses and mastoid air cells are clear. The calvarium and skull base are int act. There is no mass, hematoma, midline shift, acute infarct. White matter hypodensity is nonspecifi c but suggestive of microvascular ischemic change. The ventricles and sulci demonstrate mild age-rela bryan involutional changes. Impression: No significant change compared to the prior study. No acute intracranial abnormality. ACT 112: Negative or not required by law. Electronically signed by: Lamin Lal M.D. 01/08/2021 6:15 PM
[2021-01-08 19:06] LABS: Influenza A virus by PCR Negative (Neg); Influenza B virus by PCR Negative (Neg); RSV by PCR Negative (Neg); SARS CoV2 RNA(COVID-19) InHosp NEGATIVE (Negative)
[2021-01-08] MEDS ORDERED: POTASSIUM CHLORIDE CRTAB 20 MEQ TABCR PO STA (19:30)
--- NOTE | 2021-01-08 19:39 | CT Scan Report ---
CHEST CTA for PULMONARY ARTERIES CT DOSE: 1387.92 mGy.cm HISTORY: Atypical Chest Pain, eval for PE TECHNIQUE: Multiaxial CT images of the chest were performed following the intravenous administration of contrast to evaluate the pulmonary arteries. Maximal intensity projection images were also obtaine d. A dose lowering technique was utilized adhering to the principles of ALARA. COMPARISON STUDY: Chest CTA 11/21/2017. FINDINGS: Heterogeneous thyroid gland. No pleural or pericardial effusions. Interval development of m ediastinal and bilateral hilar lymphadenopathy. Dominant right paratracheal lymph node measures 3.4 c m. Dominant right hilar lymph node measures 2.9 cm. There are poststernotomy changes and a left-sided pacemaker. No suspicious lytic or blastic osseous lesions. Normal caliber esophagus. Possible left h epatic lobe lesions measuring up to 1.4 cm. The heart is enlarged. No filling defects within the pulm onary arteries to suggest pulmonary embolus. There is moderate narrowing within the proximal right mi ddle and lower lobe pulmonary arteries due to the mass effect from the adjacent lymphadenopathy. Bila teral gynecomastia. No pneumothorax. There is also moderate narrowing of the right middle lobe bronch us and right lower lobe bronchus due to the mass effect from the enlarged lymph node. There are multi ple bilateral pulmonary nodules. The majority of these are in a peripheral distribution. There are gr eater than 20 nodules in total. Dominant nodule within the base of the right middle lobe on image 105 measures 2.6 cm. IMPRESSION: 1. No evidence for pulmonary embolus. 2. Mediastinal and hilar lymphadenopathy with multiple bilateral pulmonary nodules as described above . This is consistent with neoplastic/metastatic disease. 3. There is moderate narrowing of the right middle and lower lobe bronchi and pulmonary arteries due to the mass effect from the enlarged right hilar lymph node. 4. Possible left hepatic lobe lesions. This could also represent additional sites of metastatic disea se. 5. Additional findings as described above. ACT 112: Negative or not required by law. Electronically signed by: Lamin Lal M.D. 01/08/2021 7:37 PM
[2021-01-08 20:03] LABS: Magnesium 2.2 mg/dl (1.8-2.4)
[2021-01-08 20:14] LABS: INR 2.1 (0.9-1.1); Partial Thromboplastin Ratio 1.5; Partial Thromboplastin Time 40.6 Seconds (21.0-31.0); Prothrombin Time 19.8 Seconds (9.0-12.0)
[2021-01-08 20:39] LABS: Thyroid Stimulating Hormone 0.625 uIu/ml (0.300-4.500); Troponin I < 0.015 ng/ml (0-0.045)
[2021-01-08] MEDS ORDERED: GLUCAGON FOR INJ 1 MG VIAL SQ PRN (21:32)
[2021-01-08] MEDS ORDERED: MoRPHine SULFATE 4 MG/ML 1 ML CARP\\VIAL IV PRN (21:32)
[2021-01-08] MEDS ORDERED: GLUCOSE 40% GEL 15 GM TUBE PO PRN (21:32)
[2021-01-08] MEDS ORDERED: NITROGLYCERIN SL 0.4 MG/TAB TAB SL PRN (21:32)
[2021-01-08] MEDS ORDERED: CARBOHYDRATES FOR HYPOGLYCEMIA PO PRN (21:32)
[2021-01-08] MEDS ORDERED: traMADol HCL 50 MG TABLET PO PRN (21:32)
[2021-01-08] MEDS ORDERED: DEXTROSE 50% 50 ML SYRINGE IV PRN (21:32)
[2021-01-08] MEDS ORDERED: ACETAMINOPHEN 325 MG TAB PO PRN (21:32)
[2021-01-08] MEDS ORDERED: GLUCOSE 10 TABS/TUBE PO PRN (21:32)
[2021-01-08] MEDS ORDERED: PROMETHAZINE HCL 12.5 MG in SODIUM CHLORIDE 0.9% 50 ML IV PRN (21:32)
[2021-01-08 21:56] LABS: Lyme Ab IgG w/WB Rflx Negative (Negative); Lyme Ab IgM w/WB Rflx Negative (Negative)
[2021-01-08] MEDS ORDERED: POTASSIUM CHLORIDE 40 MEQ in SODIUM CHLORIDE 0.9% 1000ML 1,000 ML IV ONE (22:00)
[2021-01-08] MEDS: INSULIN ASPART 100 UNITS/ML 3 ML PEN SC SCH (22:29)
[2021-01-08] MEDS: METOPROLOL SUCC 25MG EXT REL TAB PO SCH (22:34)
[2021-01-08] MEDS: PANTOprazole 40 MG TAB PO SCH (22:34)
--- NOTE | 2021-01-09 00:57 | History & Physical Report ---
Date of Service January 08, 2021 LATE ENTRY Assessment & Plan (1) Chest pain: Possibly from A. fib RVR episode, hx SSS status post PPM, INR therapeutic Status post Cardizem administration by EMS. Patient currently comfortable. Currently paced rhythm the ER. Rule out ACS given history of CAD status post CABG and stent. chronic systolic heart failure (EF 37%, TTE 2020) secondary to ischemic cardiomyopathy, patient euvolemic to dry valvular heart disease (moderate aortic stenosis, mild mitral regurgitation on recent TTE) pulmonary hypertension as per records hx PVD as per records hyperlipidemia on statin Rx Metastatic prostate cancer status post radiation status post Lupron, progressive pulmonary mets on imaging Possible hepatic mets on CT imaging today. Awaiting insurance coverage approval for Enzalutamide. AL on CPAP hx PE/DVT as per records DM2 on oral medications, well-controlled as of recent hemoglobin A1c of 6.15 September 2020 chronic anemia, hemoglobin at baseline past tobacco abuse OBS PCU Continue home beta-heath for A. fib rate control, titrate as needed Follow troponin Cardiology consult RE chest pain, rapid A. fib Outpatient follow-up with sleep medicine to review current CPAP settings given patient fatigue complaints in the last few months. Basal insulin, ISS BG goal [id number], carb count coverage PT OT eval DVT prophylaxis. Coumadin INR goal between 2 and 3 if no cardiac procedure contemplated Full code Patient's requesting updates for providers. Lucinda Lopez, contact #[phone]. Text document was generated using [employer] voice recognition software. It may contain grammatical or spelling errors. Kindly contact undersigned for clarification of any documentation item in question. Admission and Anticipated Discharge Date Admission Date: January 08, 2021 History of Present Illness Chief Complaint: Chest tightness Primary Care Provider: Justa Lebron DO History obtained from patient, family, and records. Medical history significant for chronic systolic heart failure (EF 37%, TTE 2 021) secondary ischemic cardiomyopathy, valvular heart disease (moderate aortic stenosis, mild mitral regurgitation on recent TTE), pulmonary hypertension, CAD status post CABG status post stent, PVD as per records, SSS sp PPM on Coumadin, hypertension, hyperlipidemia, AL on CPAP, PE/DVT as per records, DM2 on oral medications, metastatic prostate cancer status post radiation sp Lupron, chronic anemia (baseline hemoglobin 12), past tobacco abuse. Last confinement September 2020 for respiratory failure secondary to severe COVID-19 pneumonia. Patient has has been feeling tired the last few months, at rest and more so on exertion. Denies depression. Compliant with home CPAP machine although last outpatient [facility] Sleep medicine visit was almost 2 years ago. Recent outpatient [facility] cardiology visit 10 days ago. Chronic fatigue and stable exertional dyspnea symptoms as per documentation. Outpatient ICD interrogation from 3 weeks ago demonstrated appropriate function with adequate battery reserve. Rhythm predominantly atrial paced. Time in AT/AF less than 0.1%. NSVT totaling 5 short episodes. Patient noted intermittent chest tightness symptoms the last few days, not radiating. Symptoms somewhat worse today, patient had a little more short of breath than usual without unusual cough symptoms. Denies palpitations. No unusual stress at home. No fluid retention. Compliant with home medications. EMS called by patient family. Patient noted to be in rapid A. fib, cardiac rate 160s. IV Cardizem bolus prior to ER arrival. Patient currently comfortable at the ER. 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 Allergies Allergy/AdvReac Type Severity Reaction Status Date / Time No Known Allergies Allergy Verified 01/08/21 18:58 Home Medications Medication Instructions Recorded Confirmed Type Glucosamine Chondroitin 1 cap PO BID 02/21/19 01/08/21 History aspirin 81 mg PO QAM 02/21/19 01/08/21 History glipizide 10 mg PO BID 02/21/19 01/08/21 History lisinopril 2.5 mg PO QAM 02/21/19 01/08/21 History metformin 500 mg PO QAM 02/21/19 01/08/21 History metoprolol succinate 25 mg PO BID 02/21/19 01/08/21 History nitroglycerin [Nitrostat] 0.4 mg SUBLINGUAL DIRECTED PRN 02/21/19 01/08/21 History omeprazole 20 mg PO BID 02/21/19 01/08/21 History potassium chloride [Klor-Con M10] 10 meq PO BID 02/21/19 01/08/21 History fluocinonide 1 applic TOPICAL DAILY PRN 09/20/20 01/08/21 History ketoconazole 1 applic TOPICAL .UD 09/20/20 01/08/21 History pioglitazone 45 mg PO QAM 09/20/20 01/08/21 History acetaminophen [Tylenol] 975 mg PO QID PRN 01/08/21 01/08/21 History ascorbic acid (vitamin C) 0 mg PO DAILY 01/08/21 01/08/21 History cholecalciferol (vitamin D3) 0 mcg PO DAILY 01/08/21 01/08/21 History Past Med/Surg History Medical History Asthma DM2 (diabetes mellitus, type 2) DVT (deep venous thrombosis) "RLE" Dyspnea on minimal exertion History of left heart catheterization (LHC) "60% stenosis mid left anterior descending " HLD (hyperlipidemia) Hyperlipidemia Hypertension Hypoxia AL on CPAP Paroxysmal atrial fibrillation Prostate cancer (10/22/17) Systolic ejection murmur Tachy-shanita syndrome Surgical History H/O esophagogastroduodenoscopy Hx of total knee arthroplasty S/P CABG x 1 S/P cholecystectomy S/P hip replacement S/P knee replacement Family History Other No pertinent family history Social History Smoking Status: Former smoker Cigarettes Per Day: 40; Hx Alcohol Use: No Hx Substance Use: No Preferred Language: Kittitian Communication Ability: Effective Visual Impairment: No Limitations Hearing Ability: Normal Beliefs That Will Affect Care: None marital status: Current Living Situation: Spouse Other Information That Helps Us Care for You: No Feels Safe at Home: Yes Safety Concerns: Feels Safe At This Time Assistive Devices: Special Shoe Review of Systems Review of Systems: As per HPI, all 10 systems reviewed, all other ROS negative Physical Exam Physical Exam: GENERAL: Comfortable, obese, no respiratory distress SKIN: Pallor, warm HEENT: Pale palpebral conjunctivae, no ptosis, dry buccal mucosa NECK : Supple, short neck, no tenderness CHEST : Decreased breath sounds, no tenderness HEART : RRR, systolic murmur ABDOMEN: Some distention, nontender EXTREMITIES : Minimal LE swelling, no LE tenderness, no other conspicuous deformities noted NEUROLOGIC : Coherent, no facial asymmetry, no other gross focality Results & Data Results & Data ([facility]) Vital Signs (Past 12 Hours) Vital Signs Temp Pulse Pulse Resp BP BP Pulse Ox 01/09/21 00:33 63 01/09/21 00:00 36.4 C L 60 16 124/80 97 01/08/21 22:30 62 147/81 H 01/08/21 21:32 01/08/21 21:14 36.7 C 76 18 128/71 97 01/08/21 20:30 60 17 125/65 92 01/08/21 20:00 60 20 124/68 93 01/08/21 19:30 60 16 129/71 90 01/08/21 19:00 60 15 127/61 92 01/08/21 18:31 61 14 95 01/08/21 18:30 60 17 116/75 96 01/08/21 18:20 63 13 95 01/08/21 18:15 61 13 124/61 96 01/08/21 18:11 96 01/08/21 17:50 62 11 L 91 01/08/21 17:44 96 01/08/21 17:40 60 16 91 01/08/21 17:31 61 19 94 01/08/21 17:30 63 16 110/62 93 01/08/21 17:20 60 20 94 01/08/21 17:10 60 14 93 01/08/21 17:01 63 19 94 01/08/21 17:00 62 16 121/61 92 01/08/21 16:58 65 18 107/66 93 01/08/21 16:55 63 17 92 01/08/21 16:52 65 18 107/66 93 Pulse Ox 01/09/21 00:33 01/09/21 00:00 01/08/21 22:30 01/08/21 21:32 96 01/08/21 21:14 01/08/21 20:30 01/08/21 20:00 01/08/21 19:30 01/08/21 19:00 01/08/21 18:31 01/08/21 18:30 01/08/21 18:20 01/08/21 18:15 01/08/21 18:11 01/08/21 17:50 01/08/21 17:44 01/08/21 17:40 01/08/21 17:31 01/08/21 17:30 01/08/21 17:20 01/08/21 17:10 01/08/21 17:01 01/08/21 17:00 01/08/21 16:58 01/08/21 16:55 01/08/21 16:52 Laboratory Results Laboratory Results WBC 5.74 K/uL (4.8-10.8) 01/08/21 16:50 RBC 4.18 M/uL (4.7-6.1) L 01/08/21 16:50 Hgb 12.7 g/dL (14.0-18.0) L 01/08/21 16:50 Hct 36.8 % (42-52) L 01/08/21 16:50 MCV 88.0 fL (80-100) 01/08/21 16:50 MCH 30.4 pg (25-34) 01/08/21 16:50 MCHC 34.5 g/dL (32-36) 01/08/21 16:50 RDW Std Deviation 46.4 fL (36.4-46.3) H 01/08/21 16:50 RDW Coeff of Bradly 14.3 % (11.5-14.5) 01/08/21 16:50 Plt Count 150 K/uL (130-400) 01/08/21 16:50 MPV 9.1 fL (7.4-10.4) 01/08/21 16:50 Immature Gran % (Auto) 0.2 % 01/08/21 16:50 Neut % (Auto) 69.8 % 01/08/21 16:50 Lymph % (Auto) 18.8 % 01/08/21 16:50 [place] % (Auto) 10.3 % 01/08/21 16:50 Eos % (Auto) 0.7 % 01/08/21 16:50 Baso % (Auto) 0.2 % 01/08/21 16:50 Neut # (Auto) 4.01 K/uL (1.4-6.5) 01/08/21 16:50 Lymph # (Auto) 1.08 K/uL (1.2-3.4) L 01/08/21 16:50 [place] # (Auto) 0.59 K/uL (0.11-0.59) 01/08/21 16:50 Eos # (Auto) 0.04 K/uL (0-0.5) 01/08/21 16:50 Baso # (Auto) 0.01 K/uL (0-0.2) 01/08/21 16:50 Immature Gran # (Auto) 0.01 K/uL (0.00-0.02) 01/08/21 16:50 PT 19.8 Seconds (9.0-12.0) H 01/08/21 19:41 INR 2.1 (0.9-1.1) H 01/08/21 19:41 APTT 40.6 Seconds (21.0-31.0) H 01/08/21 19:41 PTT Ratio 1.5 01/08/21 19:41 Sodium 137 mmol/L (136-145) 01/08/21 16:50 Potassium 3.7 mmol/L (3.5-5.1) 01/08/21 16:50 Chloride 107 mmol/L (98-107) 01/08/21 16:50 Carbon Dioxide 24 mmol/L (21-32) 01/08/21 16:50 Anion Gap 6.0 (3-11) 01/08/21 16:50 BUN 19 mg/dl (7-18) H 01/08/21 16:50 Creatinine 0.91 mg/dl (0.6-1.4) 01/08/21 16:50 Est Cr Clr Drug Dosing 76.3 ml/min 01/08/21 16:50 Est GFR ( Amer) 91.3 01/08/21 16:50 Est GFR (Non-Af Amer) 78.8 01/08/21 16:50 BUN/Creatinine Ratio 20.6 (10-20) H 01/08/21 16:50 Glucose 154 mg/dl (70-99) H 01/08/21 16:50 POC Glucose 110 mg/dl (70-99) H 01/08/21 21:43 Calcium 8.4 mg/dl (8.5-10.1) L 01/08/21 16:50 Magnesium 2.2 mg/dl (1.8-2.4) 01/08/21 19:41 Total Bilirubin 0.4 mg/dl (0.2-1) 01/08/21 16:50 AST 27 U/L (15-37) 01/08/21 16:50 ALT 27 U/L (12-78) 01/08/21 16:50 Alkaline Phosphatase 117 U/L (45-117) 01/08/21 16:50 Troponin I < 0.015 ng/ml (0-0.045) 01/08/21 19:41 Total Protein 6.5 gm/dl (6.4-8.2) 01/08/21 16:50 Albumin 3.1 gm/dl (3.4-5.0) L 01/08/21 16:50 Globulin 3.4 gm/dl (2.5-4.0) 01/08/21 16:50 Albumin/Globulin Ratio 0.9 (0.9-2) 01/08/21 16:50 Lipase 109 U/L (73-393) 01/08/21 16:50 TSH 0.625 uIu/ml (0.300-4.500) 01/08/21 19:41 Lyme Disease IgG Ab Negative (Negative) 01/08/21 20:56 Lyme Disease IgM Ab Negative (Negative) 01/08/21 20:56 COVID-19 Eval Order CovFluRsv at [facility] 01/08/21 18:17 SARS-CoV-2 (PCR) NEGATIVE (Negative) 01/08/21 18:17 Influenza Type A (PCR) Negative (Neg) 01/08/21 18:17 Influenza Type B (PCR) Negative (Neg) 01/08/21 18:17 RSV (RT-PCR) Negative (Neg) 01/08/21 18:[address] head: No significant change compared to the prior study. No acute intracranial abnormality. CT chest: 1. No evidence for pulmonary embolus. 2. Mediastinal and hilar lymphadenopathy with multiple bilateral pulmonary nodules as described above. This is consistent with neoplastic/metastatic disea se. 3. There is moderate narrowing of the right middle and lower lobe bronchi and pulmonary arteries due to the mass effect from the enlarged right hilar lymph node. 4. Possible left hepatic lobe lesions. This could also represent additional sites of metastatic disease. EKG as per my interpretation : Rate 70, paced rhythm Code Status & VTE Plan VTE Prophylaxis Plan VTE Prophylaxis will be ordered: Yes
[2021-01-09 04:44] LABS: Appearance Urine Clear (Clear); Bilirubin Urine Negative (Negative); Blood Urine Negative (Negative); Color Urine Yellow; Glucose Urine UA Negative (Negative); Ketones Urine Negative (Negative); Leukocyte Esterase Urine Negative (Negative); Nitrite Urine Negative (Negative); Protein Urine Negative (Negative); Specific Gravity Urine > 1.045 (1.000-1.030); Urobilinogen Urine Negative (Negative); pH Urine 6.5 (4.5-7.5)
[2021-01-09 06:31] LABS: Basophils # (auto) 0.01 K/uL (0-0.2); Basophils % (auto) 0.2 %; Eosinophils # (auto) 0.05 K/uL (0-0.5); Eosinophils % (auto) 1.1 %; Hematocrit (blood only) 35.4 % (42-52); Lymphocytes # (auto) 1.13 K/uL (1.2-3.4); Lymphocytes % (auto) 25.5 %; Mean Corpuscular Hemoglobin 29.9 pg (25-34); Mean Corpuscular Hgb Conc 33.9 g/dL (32-36); Mean Corpuscular Volume 88.3 fL (80-100); Monocytes # (auto) 0.43 K/uL (0.11-0.59); Monocytes % (auto) 9.7 %; Neutrophils # (auto) 2.82 K/uL (1.4-6.5); Neutrophils % (auto) 63.5 %; Platelet Count 136 K/uL (130-400); RDW Coefficient of Variation 14.4 % (11.5-14.5); Red Blood Count 4.01 M/uL (4.7-6.1); White Blood Count 4.44 K/uL (4.8-10.8)
[2021-01-09 06:38] LABS: Prothrombin Time 19.2 Seconds (9.0-12.0)
[2021-01-09 07:03] LABS: BUN Creatinine Ratio 25.9 (10-20); Blood Urea Nitrogen 18 mg/dl (7-18); Calcium 8.6 mg/dl (8.5-10.1); Carbon Dioxide 27 mmol/L (21-32); Chloride 108 mmol/L (98-107); Creatinine Clr Calc Pharmacy 97.7 ml/min; Est GFR (African American) 103.2; Glucose 153 mg/dl (70-99); Potassium 4.5 mmol/L (3.5-5.1); Sodium 139 mmol/L (136-145)
[2021-01-09 07:06] LABS: Chol HDL Ratio 5; Cholesterol 217 mg/dl (0-200); HDL Cholesterol 41 mg/dl; LDL Cholesterol Calculated 147 mg/dl; Triglycerides 146 mg/dl (0-150); Troponin I < 0.015 ng/ml (0-0.045); VLDL Cholesterol 29 mg/dl
[2021-01-09] MEDS: INSULIN ASPART 100 UNITS/ML 3 ML PEN SC SCH ×4 (07:49→21:00)
[2021-01-09] MEDS: ASPIRIN 81 MG ECTAB PO SCH (08:58)
[2021-01-09] MEDS: lisinopril 2.5 MG TAB PO SCH (08:58)
[2021-01-09] MEDS: METOPROLOL SUCC 25MG EXT REL TAB PO SCH ×2 (08:58→21:07)
[2021-01-09] MEDS: PANTOprazole 40 MG TAB PO SCH ×2 (08:58→21:06)
[2021-01-09] MEDS ORDERED: POTASSIUM CHLORIDE 10 MEQ TABCR PO SCH (09:00)
[2021-01-09] MEDS ORDERED: ASPIRIN 81 MG CHEW PO SCH (09:00)
--- NOTE | 2021-01-09 09:03 | Cardiology Consultation ---
Date of Consultation January 09, 2021 Assessment & Plan (1) Atrial fibrillation with RVR: I think the patient is best started on an antiarrhythmic to suppress atrial fibrillation for the future. I have started him on amiodarone 200 mg 3 times daily. He should remain on the quality assurance monitor final while we are loading the amiodarone. We should also follow his pro time to make sure that he does not have an elevation after starting the amiodarone. (2) Cardiac pacemaker in situ: Pacemaker is functioning appropriately. (3) Hx of CABG: Patient's cardiac markers were negative on admission. I believe his chest pain was not due to acute coronary syndrome but due to the atrial fibrillation with a rapid heart rate. (4) Ischemic cardiomyopathy: Currently stable and on appropriate medications. History of Present Illness Attending Physician: Bernard Kruger MD History of Present Illness This patient has a cardiac history as outlined below. He was in his usual state of health until last evening he developed some chest discomfort and called the emergency squad. According to notes as well as the patient he was noted to be tachycardic in the squad and was in atrial fibrillation. He converted spontaneously to sinus rhythm prior to the emergency department. His chest pain resolved and he has been asymptomatic since admission. Cardiac markers on admission have been negative. His EKG reveals a paced rhythm. He has no complaints today. Past medical history: 1.ASCVD 1.Status post PCI with a BMS to the mid LAD on 05/16/2016. 2.May 26, 2016 diagnostic cardiac catheterization at [facility], Dr. 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 Also, far beyond the stent, there was visible healed dissection flap, Type B, non-obs tructive. 3.Status post CABG x 1 with a ABRAMS to LAD for persistent angina, May 2016. 2.Ischemic cardiomyopathy, EF 40-44% 3.Aortic valve stenosis 4.Past paroxysmal atrial fibrillation. 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 8.Hypertension. 9.Hyperlipidemia. Poor statin tolerance 10.Type II diabetes mellitus 11.Advanced prostate cancer. Diagnosed in 2018. Completed 40 radiation treatments on May 14, 2018. Casodex discontinued due to breast enlargement. 12.Iron deficiency anemia 13.COVID in Sep 2020 requiring hospitalization. Allergies Allergy/AdvReac Type Severity Reaction Status Date / Time No Known Allergies Allergy Verified 01/08/21 18:58 Home Medications Medication Instructions Recorded Confirmed Type Glucosamine Chondroitin 1 cap PO BID 02/21/19 01/08/21 History aspirin 81 mg PO QAM 02/21/19 01/08/21 History glipizide 10 mg PO BID 02/21/19 01/08/21 History lisinopril 2.5 mg PO QAM 02/21/19 01/08/21 History metformin 500 mg PO QAM 02/21/19 01/08/21 History metoprolol succinate 25 mg PO BID 02/21/19 01/08/21 History nitroglycerin [Nitrostat] 0.4 mg SUBLINGUAL DIRECTED PRN 02/21/19 01/08/21 History omeprazole 20 mg PO BID 02/21/19 01/08/21 History potassium chloride [Klor-Con M10] 10 meq PO BID 02/21/19 01/08/21 History fluocinonide 1 applic TOPICAL DAILY PRN 09/20/20 01/08/21 History ketoconazole 1 applic TOPICAL .UD 09/20/20 01/08/21 History pioglitazone 45 mg PO QAM 09/20/20 01/08/21 History acetaminophen [Tylenol] 975 mg PO QID PRN 01/08/21 01/08/21 History ascorbic acid (vitamin C) 0 mg PO DAILY 01/08/21 01/08/21 History cholecalciferol (vitamin D3) 0 mcg PO DAILY 01/08/21 01/08/21 History furosemide [Lasix] 40 mg PO DAILY 01/09/21 01/09/21 History warfarin 5 mg PO UD 01/09/21 01/09/21 History Patient History Medical History Asthma DM2 (diabetes mellitus, type 2) DVT (deep venous thrombosis) "RLE" Dyspnea on minimal exertion History of left heart catheterization (LHC) "60% stenosis mid left anterior descending " HLD (hyperlipidemia) Hyperlipidemia Hypertension Hypoxia AL on CPAP Paroxysmal atrial fibrillation Prostate cancer (10/22/17) Systolic ejection murmur Tachy-shanita syndrome Surgical History H/O esophagogastroduodenoscopy Hx of total knee arthroplasty S/P CABG x 1 S/P cholecystectomy S/P hip replacement S/P knee replacement Family History Other No pertinent family history Social History Smoking Status: Former smoker Cigarettes Per Day: 40; Hx Alcohol Use: No Hx Substance Use: No Preferred Language: Micronesian Communication Ability: Effective Visual Impairment: No Limitations Hearing Ability: Normal Beliefs That Will Affect Care: None marital status: Current Living Situation: Spouse Other Information That Helps Us Care for You: No Feels Safe at Home: Yes Safety Concerns: Feels Safe At This Time Assistive Devices: None Review of Systems Review of Systems: All systems reviewed & are unremarkable except as noted in HPI & below Nothing additional to add. Physical Exam Physical Exam: General: no acute distress and stated age Head: normocephalic, no masses, lesions, tenderness or abnormalities Eyes: conjunctiva are pink and non-injected, sclera clear Neck: supple, no adenopathy, no bruits, normal jugular venous pulse, no hepatojugular reflux Chest: normal shape and normal respiratory effort Lungs: clear to auscultation and percussion Cardiac Exam: - regular rate & rhythm, no murmurs gallops or rubs - normal S1, normal S2 Pulses: 2(+) throughout Abdomen: abdomen soft, non-tender, no abnormal masses and no hepatosplenomegaly Musculoskeletal: no gait disturbance, no joint inflammation, no deforming arth ritis Extremities: no edema and no cyanosis Neuro: grossly normal exam Results & Data ([facility]) Vital Signs (Past 12 Hours) Vital Signs Temp Pulse Pulse Resp BP Pulse Ox Pulse Ox 01/09/21 08:30 37.3 C 60 18 114/69 94 01/09/21 07:35 60 01/09/21 04:00 36.8 C 59 L 16 159/88 H 97 01/09/21 00:33 63 01/09/21 00:00 36.4 C L 60 16 124/80 97 01/08/21 22:30 62 147/81 H 01/08/21 21:32 96 01/08/21 21:14 36.7 C 76 18 128/71 97 Laboratory Results Laboratory Results - last 24 hr 01/08/21 01/08/21 01/08/21 16:50 16:50 16:50 WBC 5.74 RBC 4.18 L Hgb 12.7 L Hct 36.8 L MCV 88.0 MCH 30.4 MCHC 34.5 RDW Std Deviation 46.4 H RDW Coeff of Bradly 14.3 Plt Count 150 MPV 9.1 Immature Gran % (Auto) 0.2 Neut % (Auto) 69.8 Lymph % (Auto) 18.8 Doug[place] % (Auto) 10.3 Eos % (Auto) 0.7 Baso % (Auto) 0.2 Neut # (Auto) 4.01 Lymph # (Auto) 1.08 L [place] # (Auto) 0.59 Eos # (Auto) 0.04 Baso # (Auto) 0.01 Immature Gran # (Auto) 0.01 PT Cancelled INR Cancelled APTT Cancelled PTT Ratio Cancelled Sodium 137 Potassium 3.7 Chloride 107 Carbon Dioxide 24 Anion Gap 6.0 BUN 19 H Creatinine 0.91 Est Cr Clr Drug Dosing 76.3 Est GFR ( Amer) 91.3 Est GFR (Non-Af Amer) 78.8 BUN/Creatinine Ratio 20.6 H Glucose 154 H POC Glucose Calcium 8.4 L Magnesium Total Bilirubin 0.4 AST 27 ALT 27 Alkaline Phosphatase 117 Troponin I < 0.015 Total Protein 6.5 Albumin 3.1 L Globulin 3.4 Albumin/Globulin Ratio 0.9 Triglycerides Cholesterol LDL Cholesterol, Calc VLDL Cholesterol, Calc HDL Cholesterol Cholesterol/HDL Ratio Lipase 109 TSH Urine Color Urine Appearance Urine pH Ur Specific [place] Urine Protein Urine Glucose (UA) Urine Ketones Urine Blood Urine Nitrite Urine Bilirubin Urine Urobilinogen Ur Leukocyte Esterase Lyme Disease IgG Ab Lyme Disease IgM Ab COVID-19 Eval Order SARS-CoV-2 (PCR) Influenza Type A (PCR) Influenza Type B (PCR) RSV (RT-PCR) 01/08/21 01/08/21 01/08/21 18:17 18:17 19:41 WBC RBC Hgb Hct MCV MCH MCHC RDW Std Deviation RDW Coeff of Bradly Plt Count MPV Immature Gran % (Auto) Neut % (Auto) Lymph % (Auto) [place] % (Auto) Eos % (Auto) Baso % (Auto) Neut # (Auto) Lymph # (Auto) [place] # (Auto) Eos # (Auto) Baso # (Auto) Immature Gran # (Auto) PT INR APTT PTT Ratio Sodium Potassium Chloride Carbon Dioxide Anion Gap BUN Creatinine Est Cr Clr Drug Dosing Est GFR ( Amer) Est GFR (Non-Af Amer) BUN/Creatinine Ratio Glucose POC Glucose Calcium Magnesium 2.2 Total Bilirubin AST ALT Alkaline Phosphatase Troponin I < 0.015 Total Protein Albumin Globulin Albumin/Globulin Ratio Triglycerides Cholesterol LDL Cholesterol, Calc VLDL Cholesterol, Calc HDL Cholesterol Cholesterol/HDL Ratio Lipase TSH 0.625 Urine Color Urine Appearance Urine pH Ur Specific [place] Urine Protein Urine Glucose (UA) Urine Ketones Urine Blood Urine Nitrite Urine Bilirubin Urine Urobilinogen Ur Leukocyte Esterase Lyme Disease IgG Ab Lyme Disease IgM Ab COVID-[address] Cov[address]Rsv at [facility] SARS-CoV-2 (PCR) NEGATIVE Influenza Type A (PCR) Negative Influenza Type B (PCR) Negative RSV (RT-PCR) Negative 01/08/21 01/08/21 01/08/21 19:41 20:56 21:43 WBC RBC Hgb Hct MCV MCH MCHC RDW Std Deviation RDW Coeff of Bradly Plt Count MPV Immature Gran % (Auto) Neut % (Auto) Lymph % (Auto) [place] % (Auto) Eos % (Auto) Baso % (Auto) Neut # (Auto) Lymph # (Auto) [place] # (Auto) Eos # (Auto) Baso # (Auto) Immature Gran # (Auto) PT 19.8 H INR 2.1 H APTT 40.6 H PTT Ratio 1.5 Sodium Potassium Chloride Carbon Dioxide Anion Gap BUN Creatinine Est Cr Clr Drug Dosing Est GFR ( Amer) Est GFR (Non-Af Amer) BUN/Creatinine Ratio Glucose POC Glucose 110 H Calcium Magnesium Total Bilirubin AST ALT Alkaline Phosphatase Troponin I Total Protein Albumin Globulin Albumin/Globulin Ratio Triglycerides Cholesterol LDL Cholesterol, Calc VLDL Cholesterol, Calc HDL Cholesterol Cholesterol/HDL Ratio Lipase TSH Urine Color Urine Appearance Urine pH Ur Specific [place] Urine Protein Urine Glucose (UA) Urine Ketones Urine Blood Urine Nitrite Urine Bilirubin Urine Urobilinogen Ur Leukocyte Esterase Lyme Disease IgG Ab Negative Lyme Disease IgM Ab Negative COVID-19 Eval Order SARS-CoV-2 (PCR) Influenza Type A (PCR) Influenza Type B (PCR) RSV (RT-PCR) 01/09/21 01/09/21 01/09/21 03:50 05:43 05:43 WBC 4.44 L RBC 4.01 L Hgb 12.0 L Hct 35.4 L MCV 88.3 MCH 29.9 MCHC 33.9 RDW Std Deviation 47.0 H RDW Coeff of Bradly 14.4 Plt Count 136 MPV 9.0 Immature Gran % (Auto) 0.0 Neut % (Auto) 63.5 Lymph % (Auto) 25.5 [place] % (Auto) 9.7 Eos % (Auto) 1.1 Baso % (Auto) 0.2 Neut # (Auto) 2.82 Lymph # (Auto) 1.13 L [place] # (Auto) 0.43 Eos # (Auto) 0.05 Baso # (Auto) 0.01 Immature Gran # (Auto) 0.00 PT 19.2 H INR 2.0 H APTT PTT Ratio Sodium Potassium Chloride Carbon Dioxide Anion Gap BUN Creatinine Est Cr Clr Drug Dosing Est GFR ( Amer) Est GFR (Non-Af Amer) BUN/Creatinine Ratio Glucose POC Glucose Calcium Magnesium Total Bilirubin AST ALT Alkaline Phosphatase Troponin I Total Protein Albumin Globulin Albumin/Globulin Ratio Triglycerides Cholesterol LDL Cholesterol, Calc VLDL Cholesterol, Calc HDL Cholesterol Cholesterol/HDL Ratio Lipase TSH Urine Color Yellow Urine Appearance Clear Urine pH 6.5 Ur Specific [place] > 1.045 H Urine Protein Negative Urine Glucose (UA) Negative Urine Ketones Negative Urine Blood Negative Urine Nitrite Negative Urine Bilirubin Negative Urine Urobilinogen Negative Ur Leukocyte Esterase Negative Lyme Disease IgG Ab Lyme Disease IgM Ab COVID-19 Eval Order SARS-CoV-2 (PCR) Influenza Type A (PCR) Influenza Type B (PCR) RSV (RT-PCR) 01/09/21 01/09/21 05:43 11:20 WBC RBC Hgb Hct MCV MCH MCHC RDW Std Deviation RDW Coeff of Bradly Plt Count MPV Immature Gran % (Auto) Neut % (Auto) Lymph % (Auto) [place] % (Auto) Eos % (Auto) Baso % (Auto) Neut # (Auto) Lymph # (Auto) [place] # (Auto) Eos # (Auto) Baso # (Auto) Immature Gran # (Auto) PT INR APTT PTT Ratio Sodium 139 Potassium 4.5 D Chloride 108 H Carbon Dioxide 27 Anion Gap 4.0 BUN 18 Creatinine 0.69 Est Cr Clr Drug Dosing 97.7 Est GFR ( Amer) 103.2 Est GFR (Non-Af Amer) 89.0 BUN/Creatinine Ratio 25.9 H Glucose 153 H POC Glucose 138 H Calcium 8.6 Magnesium Total Bilirubin AST ALT Alkaline Phosphatase Troponin I < 0.015 Total Protein Albumin Globulin Albumin/Globulin Ratio Triglycerides 146 Cholesterol 217 H LDL Cholesterol, Calc 147 VLDL Cholesterol, Calc 29 HDL Cholesterol 41 Cholesterol/HDL Ratio 5 Lipase TSH Urine Color Urine Appearance Urine pH Ur Specific [place] Urine Protein Urine Glucose (UA) Urine Ketones Urine Blood Urine Nitrite Urine Bilirubin Urine Urobilinogen Ur Leukocyte Esterase Lyme Disease IgG Ab Lyme Disease IgM Ab COVID-19 Eval Order SARS-CoV-2 (PCR) Influenza Type A (PCR) Influenza Type B (PCR) RSV (RT-PCR) Medications Administered Current Inpatient Medications Acetaminophen (Acetaminophen 325 Mg Tab) 650 mg PO Q4H PRN PRN Reason: Pain or Fever Stop: 02/07/21 21:31 Albuterol (Albut/Ipratrop 3mg/0.5mg Neb 3 Ml Vial) 3 ml NEB Q4R PRN PRN Reason: Shortness Of Breath Or Wheezing Stop: 02/08/21 10:59 Amiodarone HCl (Amiodarone 200 Mg Tab) 200 mg PO TIDM KENDRICK Stop: 02/08/21 11:59 Aspirin (Aspirin 81 Mg Ectab) 81 mg PO QAM KENDRICK Stop: 02/08/21 08:59 Last Admin: 01/09/21 08:58 Dose: 81 mg Documented by: Dextrose (Dextrose 50% 50 Ml Syringe) 25 - 50 ml IV UD PRN; Protocol PRN Reason: Hypoglycemia Protocol Stop: 02/07/21 21:31 Glucagon (Glucagon For Inj 1 Mg Vial) 1 mg SQ UD PRN; Protocol PRN Reason: Hypoglycemia Protocol Stop: 02/07/21 21:31 Glucose (Glucose 10 Tabs/Tube) 4 - 8 tabs PO UD PRN; Protocol PRN Reason: Hypoglycemia Protocol Stop: 02/07/21 21:31 Glucose (Glucose 40% Gel 15 Gm Tube) 15 - 30 gm PO UD PRN; Protocol PRN Reason: Hypoglycemia Protocol Stop: 02/07/21 21:31 Promethazine HCl 12.5 mg/ (Sodium Chloride) 50.5 mls @ 202 mls/hr IV Q6H PRN PRN Reason: Nausea And Vomiting Stop: 02/07/21 21:31 Potassium Chloride 40 meq/ (Sodium Chloride) 1,020 mls @ 40 mls/hr IV .Q24H ONE Stop: 01/09/21 21:59 Last Admin: 01/08/21 22:33 Dose: 40 mls/hr Documented by: Insulin Aspart (Insulin Aspart 100 Units/Ml 3 Ml Pen) 0 units SC ACHS KENDRICK Stop: 02/07/21 21:31 Last Admin: 01/09/21 07:49 Dose: 3 units Documented by: Insulin Glargine (Insulin Glargine Solostar 100 Units/Ml 3 Ml Pen) 5 units SC DAILY KENDRICK Stop: 02/08/21 08:59 Last Admin: 01/09/21 09:07 Dose: 5 units Documented by: Lisinopril (Lisinopril 2.5 Mg Tab) 2.5 mg PO QAM KENDRICK Stop: 02/08/21 08:59 Last Admin: 01/09/21 08:58 Dose: 2.5 mg Documented by: Metoprolol Succinate (Metoprolol Succ 25mg Ext Rel Tab) 25 mg PO BID KENDRICK Stop: 02/07/21 21:31 Last Admin: 01/09/21 08:58 Dose: 25 mg Documented by: Miscellaneous (Carbohydrates For Hypoglycemia ) 15 - 30 gm PO UD PRN PRN Reason: Hypoglycemia Protocol Stop: 02/07/21 21:31 Morphine Sulfate (Morphine Sulfate 4 Mg/Ml 1 Ml Carp\\Vial) 4 mg IV Q4H PRN PRN Reason: Pain Stop: 01/22/21 21:31 Nitroglycerin (Nitroglycerin Sl 0.4 Mg/Tab Tab) 0.4 mg SL UD PRN PRN Reason: Chest Pain Stop: 02/07/21 21:31 Pantoprazole Sodium (Pantoprazole 40 Mg Tab) 40 mg PO BID KENDRICK Stop: 02/07/21 21:31 Last Admin: 01/09/21 08:58 Dose: 40 mg Documented by: Potassium Chloride (Potassium Chloride 10 Meq Tabcr) 10 meq PO BID KENDRICK Stop: 02/08/21 08:59 Last Admin: 01/09/21 08:59 Dose: 10 meq Documented by: Tramadol HCl (Tramadol Hcl 50 Mg Tablet) 25 - 50 mg PO Q4H PRN PRN Reason: Pain Stop: 02/07/21 21:31 Warfarin Sodium (Warfarin Sod 5 Mg Tab) 5 mg PO DAILY@1600 [facility] Stop: 02/08/21 15:59
[2021-01-09] MEDS: INSULIN GLARGINE SOLOSTAR 100 UNITS/ML 3 ML PEN SC SCH (09:07)
[2021-01-09] MEDS ORDERED: ALBUT/IPRATROP 3MG/0.5MG NEB 3 ML VIAL NEB PRN (09:08)
[2021-01-09] MEDS: AMIODARONE 200 MG TAB PO SCH ×2 (12:39→16:58)
--- NOTE | 2021-01-09 15:12 | Electrocardiogram Report ---
Test Reason : Blood Pressure : / mmHG Vent. Rate : 072 BPM Atrial Rate : 072 BPM P-R Int : 220 ms QRS Dur : 144 ms QT Int : 442 ms P-R-T Axes : 038 090 039 degrees QTc Int : 483 ms Atrial-paced rhythm with prolonged AV conduction with Premature atrial complexes Right bundle branch block Possible Inferior infarct (cited on or before 28-MAY-2016) Anterior infarct (cited on or before 28-MAY-2016) Abnormal ECG When compared with ECG of 20-SEP-2020 18:41, Premature atrial complexes are now Present Confirmed by John Benton ([id number]) on 01/09/2021 3:11:53 PM Referred By: REFERRED SELF Confirmed By:John Benton
[2021-01-09] MEDS ORDERED: WARFARIN SOD 5 MG TAB PO SCH (16:00)
--- NOTE | 2021-01-09 16:28 | Hospitalist Progress Note ---
Date of Service January 09, 2021 Assessment & Plan (1) Chest pain: Atrial fibrillation with RVR Chest pain likely secondary to above H/O SSS s/p Pacemaker CTA showed no PE. Started on amiodarone Continue metoprolol Appreciate cardiology input Monitor on telemetry Continue Coumadin Monitor INR:2.0 CAD S/P CABG Continue aspirin, statin, metoprolol, lisinopril currently denies any chest pain Chronic systolic heart failure H/O Ischemic cardiomyopathy Continue home diuretics Monitor volume status H/O PVD Continue statin, aspirin Hyperlipidemia on statin Metastatic prostate cancer S/P Radiation, Lupron Progressive disease on Imaging Follow up with Oncology as outpatient Awaiting insurance coverage approval for Enzalutamide. AL on CPAP H/O PE/DVT On coumadin DM II Hold PO meds Continue Insulin Monitor BGs DVT Px: Coumadin Code Status Full code Admission and Anticipated Discharge Date Admission Date: January 08, 2021 Subjective Patient is seen and examined at bedside States feeling much better today Offers no complaints Denies chest pain, dyspnea, dizziness, nausea, abdominal pain Started on amiodarone for afib Review of Systems Review of Systems: All systems reviewed & are unremarkable except as noted in HPI & below Physical Exam Physical Exam: Physical Exam: Vitals signs as noted above General Appearance:Moderately built and nourished, no apparent distress Head: normocephalic, Atraumatic Eyes: normal inspection, EOMI Neck: supple, Trachea midline Respiratory/Chest: Normal breath sounds, CTA, No accessory muscle use Cardiovascular: S1, S2, + murmur Abdomen/GI:Soft, Non tender, Bowel sounds present Extremities/Musculoskeletal:normal inspection, no edema Neurologic/Psych:AAOX3, grossly no focal neurological deficits Skin: normal color, warm Results & Data Results & Data ([facility]) Vital Signs (Past 12 Hours) Vital Signs Temp Pulse Pulse Resp BP Pulse Ox 01/09/21 15:06 36.8 C 60 19 136/75 94 01/09/21 11:01 37.0 C 60 18 133/77 95 01/09/21 08:30 37.3 C 60 18 114/69 94 01/09/21 07:35 60 Laboratory Results Short CBC 01/08/21 01/09/21 Range/Units 16:50 05:43 WBC 5.74 4.44 L (4.8-10.8) K/uL Hgb 12.7 L 12.0 L (14.0-18.0) g/dL Hct 36.8 L 35.4 L (42-52) % Plt Count 150 136 (130-400) K/uL BMP 01/08/21 01/09/21 16:50 05:43 Sodium 137 139 Potassium 3.7 4.5 D Chloride 107 108 H Carbon Dioxide 24 27 BUN 19 H 18 Creatinine 0.91 0.69 Glucose 154 H 153 H Calcium 8.4 L 8.6 Cardiac Enzymes 01/08/21 01/08/21 01/09/21 Range/Units 16:50 19:41 05:43 Troponin I < 0.015 < 0.015 < 0.015 (0-0.045) ng/ml Liver Function 01/08/21 Range/Units 16:50 Total Bilirubin 0.4 (0.2-1) mg/dl AST 27 (15-37) U/L ALT 27 (12-78) U/L Alkaline Phosphatase 117 (45-117) U/L Albumin 3.1 L (3.4-5.0) gm/dl Urine 01/09/21 Range/Units 03:50 Urine Color Yellow Urine Appearance Clear (Clear) Urine pH 6.5 (4.5-7.5) Ur Specific [place] > 1.045 H (1.000-1.030) Urine Protein Negative (Negative) Urine Glucose (UA) Negative (Negative)
[2021-01-09] MEDS: ATORVASTATIN 20 MG TAB PO SCH (21:07)
[2021-01-10 06:12] LABS: Hematocrit (blood only) 37.9 % (42-52); Hemoglobin 12.6 g/dL (14.0-18.0); Mean Corpuscular Hemoglobin 29.6 pg (25-34); Mean Corpuscular Hgb Conc 33.2 g/dL (32-36); Mean Platelet Volume 8.5 fL (7.4-10.4); Platelet Count 133 K/uL (130-400); RDW Coefficient of Variation 14.2 % (11.5-14.5); RDW Standard Deviation 46.3 fL (36.4-46.3); Red Blood Count 4.26 M/uL (4.7-6.1); White Blood Count 4.53 K/uL (4.8-10.8)
[2021-01-10 06:26] LABS: INR 1.4 (0.9-1.1); Prothrombin Time 13.5 Seconds (9.0-12.0)
[2021-01-10 06:43] LABS: BUN Creatinine Ratio 15.5 (10-20); Calcium 9.2 mg/dl (8.5-10.1); Creatinine Clr Calc Pharmacy 75.4 ml/min; Est GFR (African American) 93.8; Est GFR (Non-African American) 80.9; Magnesium 2.1 mg/dl (1.8-2.4); Potassium 4.3 mmol/L (3.5-5.1)
[2021-01-10] MEDS: INSULIN ASPART 100 UNITS/ML 3 ML PEN SC SCH ×4 (08:21→20:21)
[2021-01-10] MEDS: ASPIRIN 81 MG ECTAB PO SCH (08:24)
[2021-01-10] MEDS: FUROSEMIDE 40 MG TAB PO SCH (08:24)
[2021-01-10] MEDS: METOPROLOL SUCC 25MG EXT REL TAB PO SCH ×2 (08:24→20:20)
[2021-01-10] MEDS: PANTOprazole 40 MG TAB PO SCH ×2 (08:24→20:21)
[2021-01-10] MEDS: AMIODARONE 200 MG TAB PO SCH ×3 (08:25→17:09)
[2021-01-10] MEDS: lisinopril 2.5 MG TAB PO SCH (08:25)
[2021-01-10] MEDS: INSULIN GLARGINE SOLOSTAR 100 UNITS/ML 3 ML PEN SC SCH (08:26)
[2021-01-10] MEDS: HEPARIN SOD 5,000 UNIT/0.5 ML VIAL SQ SCH ×2 (10:54→20:19)
--- NOTE | 2021-01-10 12:35 | Cardiology Progress Note ---
Date of Service January 10, 2021 Assessment & Plan (1) Atrial fibrillation with RVR: Patient is tolerating amiodarone. He has maintained sinus rhythm since admission. If he continues to do well, then by tomorrow we may be able to reduce the load and he can be discharged to outpatient follow-up. (2) Cardiac pacemaker in situ: Pacemaker is functioning appropriately. (3) Hx of CABG: Patient's cardiac markers were negative on admission. I believe his chest pain was not due to acute coronary syndrome but due to the atrial fibrillation with a rapid heart rate. (4) Ischemic cardiomyopathy: Currently stable and on appropriate medications. Admission and Anticipated Discharge Date Admission Date: January 09, 2021 Subjective The patient had an uneventful night. He is tolerating his medications including the amiodarone. Review of Systems Review of Systems: All systems reviewed & are unremarkable except as noted in Subjective Physical Exam Physical Exam: General: no acute distress and stated age Head: normocephalic, no masses, lesions, tenderness or abnormalities Eyes: conjunctiva are pink and non-injected, sclera clear Neck: supple, no adenopathy, no bruits, normal jugular venous pulse, no hepatojugular reflux Chest: normal shape and normal respiratory effort Lungs: clear to auscultation and percussion Cardiac Exam: - regular rate & rhythm, no murmurs gallops or rubs - normal S1, normal S2 Pulses: 2(+) throughout Abdomen: abdomen soft, non-tender, no abnormal masses and no hepatosplenomegaly Musculoskeletal: no gait disturbance, no joint inflammation, no deforming arthritis Extremities: no edema and no cyanosis Neuro: grossly normal exam Results & Data ([facility]) Vital Signs (Past 12 Hours) Vital Signs Temp Pulse Pulse Resp BP Pulse Ox 01/10/21 11:30 36.5 C 59 L 18 127/79 94 01/10/21 08:00 61 01/10/21 07:36 36.7 C 102 H 20 136/85 93 01/10/21 03:13 36.5 C 71 17 142/79 H 97 Laboratory Results Laboratory Results - last 24 hr 01/09/21 01/09/21 01/10/21 16:21 20:30 05:59 WBC RBC Hgb Hct MCV MCH MCHC RDW Std Deviation RDW Coeff of Bradly Plt Count MPV PT INR Sodium 137 Potassium 4.3 Chloride 105 Carbon Dioxide 27 Anion Gap 5.0 BUN 14 Creatinine 0.87 Est Cr Clr Drug Dosing 75.4 Est GFR ( Amer) 93.8 Est GFR (Non-Af Amer) 80.9 BUN/Creatinine Ratio 15.5 Glucose 165 H POC Glucose 142 H 152 H Calcium 9.2 Magnesium 2.1 01/10/21 01/10/21 01/10/21 05:59 05:59 07:35 WBC 4.53 L RBC 4.26 L Hgb 12.6 L Hct 37.9 L MCV 89.0 MCH 29.6 MCHC 33.2 RDW Std Deviation 46.3 RDW Coeff of Bradly 14.2 Plt Count 133 MPV 8.5 PT 13.5 H INR 1.4 H Sodium Potassium Chloride Carbon Dioxide Anion Gap BUN Creatinine Est Cr Clr Drug Dosing Est GFR ( Amer) Est GFR (Non-Af Amer) BUN/Creatinine Ratio Glucose POC Glucose 165 H Calcium Magnesium 01/10/21 11:29 WBC RBC Hgb Hct MCV MCH MCHC RDW Std Deviation RDW Coeff of Bradly Plt Count MPV PT INR Sodium Potassium Chloride Carbon Dioxide Anion Gap BUN Creatinine Est Cr Clr Drug Dosing Est GFR ( Amer) Est GFR (Non-Af Amer) BUN/Creatinine Ratio Glucose POC Glucose 163 H Calcium Magnesium Medications Administered Current Inpatient Medications Acetaminophen (Acetaminophen 325 Mg Tab) 650 mg PO Q4H PRN PRN Reason: Pain or Fever Stop: 02/07/21 21:31 Albuterol (Albut/Ipratrop 3mg/0.5mg Neb 3 Ml Vial) 3 ml NEB Q4R PRN PRN Reason: Shortness Of Breath Or Wheezing Stop: 02/08/21 10:59 Amiodarone HCl (Amiodarone 200 Mg Tab) 200 mg PO TIDM [facility] Stop: 02/08/21 11:59 Last Admin: 01/10/21 08:25 Dose: 200 mg Documented by: Aspirin (Aspirin 81 Mg Ectab) 81 mg PO QAM [facility] Stop: 02/08/21 08:59 Last Admin: 01/10/21 08:24 Dose: 81 mg Documented by: Atorvastatin Calcium (Atorvastatin 20 Mg Tab) 20 mg PO HS [facility] Stop: 02/08/21 20:59 Last Admin: 01/09/21 21:07 Dose: 20 mg Documented by: Dextrose (Dextrose 50% 50 Ml Syringe) 25 - 50 ml IV UD PRN; Protocol PRN Reason: Hypoglycemia Protocol Stop: 02/07/21 21:31 Furosemide (Furosemide 40 Mg Tab) 40 mg PO DAILY [facility] Stop: 02/09/21 08:59 Last Admin: 01/10/21 08:24 Dose: 40 mg Documented by: Glucagon (Glucagon For Inj 1 Mg Vial) 1 mg SQ UD PRN; Protocol PRN Reason: Hypoglycemia Protocol Stop: 02/07/21 21:31 Glucose (Glucose 10 Tabs/Tube) 4 - 8 tabs PO UD PRN; Protocol PRN Reason: Hypoglycemia Protocol Stop: 02/07/21 21:31 Glucose (Glucose 40% Gel 15 Gm Tube) 15 - 30 gm PO UD PRN; Protocol PRN Reason: Hypoglycemia Protocol Stop: 02/07/21 21:31 Heparin Sodium (Porcine) (Heparin Sod 5,000 Unit/0.5 Ml Vial) 5,000 units SQ Q12 [facility] Stop: 01/11/21 08:59 Last Admin: 01/10/21 10:54 Dose: 5,000 units Documented by: Promethazine HCl 12.5 mg/ (Sodium Chloride) 50.5 mls @ 202 mls/hr IV Q6H PRN PRN Reason: Nausea And Vomiting Stop: 02/07/21 21:31 Insulin Aspart (Insulin Aspart 100 Units/Ml 3 Ml Pen) 0 units SC ACHS [facility] Stop: 02/07/21 21:31 Last Admin: 01/10/21 08:21 Dose: 5 units Documented by: Insulin Glargine (Insulin Glargine Solostar 100 Units/Ml 3 Ml Pen) 5 units SC DAILY [facility] Stop: 02/08/21 08:59 Last Admin: 01/10/21 08:26 Dose: 5 units Documented by: Lisinopril (Lisinopril 2.5 Mg Tab) 2.5 mg PO QAM [facility] Stop: 02/08/21 08:59 Last Admin: 01/10/21 08:25 Dose: 2.5 mg Documented by: Metoprolol Succinate (Metoprolol Succ 25mg Ext Rel Tab) 25 mg PO BID [facility] Stop: 02/07/21 21:31 Last Admin: 01/10/21 08:24 Dose: 25 mg Documented by: Miscellaneous (Carbohydrates For Hypoglycemia ) 15 - 30 gm PO UD PRN PRN Reason: Hypoglycemia Protocol Stop: 02/07/21 21:31 Morphine Sulfate (Morphine Sulfate 4 Mg/Ml 1 Ml Carp\Vial) 4 mg IV Q4H PRN PRN Reason: Pain Stop: 01/22/21 21:31 Nitroglycerin (Nitroglycerin Sl 0.4 Mg/Tab Tab) 0.4 mg SL UD PRN PRN Reason: Chest Pain Stop: 02/07/21 21:31 Pantoprazole Sodium (Pantoprazole 40 Mg Tab) 40 mg PO BID [facility] Stop: 02/07/21 21:31 Last Admin: 01/10/21 08:24 Dose: 40 mg Documented by: Potassium Chloride (Potassium Chloride 10 Meq Tabcr) 10 meq PO BID [facility] Stop: 02/08/21 08:59 Last Admin: 01/09/21 08:59 Dose: 10 meq Documented by: Tramadol HCl (Tramadol Hcl 50 Mg Tablet) 25 - 50 mg PO Q4H PRN PRN Reason: Pain Stop: 02/07/21 21:31 Warfarin Sodium (Warfarin Sod 7.5 Mg Tab) 7.5 mg PO DAILY@1600 [facility] Stop: 02/09/21 15:59
[2021-01-10] MEDS ORDERED: WARFARIN SOD 7.5 MG TAB PO SCH (16:00)
--- NOTE | 2021-01-10 17:37 | Hospitalist Progress Note ---
Date of Service January 10, 2021 Assessment & Plan (1) Chest pain: Atrial fibrillation with RVR Chest pain likely secondary to above H/O SSS s/p Pacemaker CTA showed no PE. 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 AL on CPAP H/O PE/DVT On coumadin DM II Hold PO meds Continue Insulin Monitor BGs DVT Px: Coumadin Heparin SQ Code Status Full code Admission and Anticipated Discharge Date Admission Date: January 09, 2021 Subjective Patient is seen and examined at bedside Doing well, no complaints Remains in sinus Denies chest pain, dyspnea, dizziness, nausea, abdominal pain Tolerating amiodarone Review of Systems Review of Systems: All systems reviewed & are unremarkable except as noted in HPI & below Physical Exam Physical Exam: Physical Exam: Vitals signs as noted above General Appearance:Moderately built and nourished, no apparent distress Head: normocephalic, Atraumatic Eyes: normal inspection, EOMI Neck: supple, Trachea midline Respiratory/Chest: Normal breath sounds, CTA, No accessory muscle use Cardiovascular: S1, S2, + murmur Abdomen/GI:Soft, Non tender, Bowel sounds present Extremities/Musculoskeletal:normal inspection, no edema Neurologic/Psych:AAOX3, grossly no focal neurological deficits Skin: normal color, warm Results & Data Results & Data ([facility]) Vital Signs (Past 12 Hours) Vital Signs Temp Pulse Pulse Resp BP Pulse Ox 01/10/21 16:00 62 01/10/21 15:47 37.1 C 59 L 20 137/70 93 01/10/21 11:30 36.5 C 59 L 18 127/79 94 01/10/21 08:00 61 01/10/21 07:36 36.7 C 102 H 20 136/85 93 Laboratory Results Short CBC 01/10/21 Range/Units 05:59 WBC 4.53 L (4.8-10.8) K/uL Hgb 12.6 L (14.0-18.0) g/dL Hct 37.9 L (42-52) % Plt Count 133 (130-400) K/uL [facility] 01/10/21 05:59 Sodium 137 Potassium 4.3 Chloride 105 Carbon Dioxide 27 BUN 14 Creatinine 0.87 Glucose 165 H Calcium 9.2
[2021-01-10] MEDS: ATORVASTATIN 20 MG TAB PO SCH (20:20)
[2021-01-11 06:02] LABS: INR 1.3 (0.9-1.1); Prothrombin Time 12.9 Seconds (9.0-12.0)
[2021-01-11 06:18] LABS: BUN Creatinine Ratio 24.9 (10-20); Calcium 8.8 mg/dl (8.5-10.1); Creatinine Clr Calc Pharmacy 71.5 ml/min; Est GFR (African American) 87.8; Est GFR (Non-African American) 75.7; Magnesium 2.2 mg/dl (1.8-2.4); Potassium 4.1 mmol/L (3.5-5.1)
[2021-01-11] MEDS: INSULIN GLARGINE SOLOSTAR 100 UNITS/ML 3 ML PEN SC SCH (08:03)
[2021-01-11] MEDS: INSULIN ASPART 100 UNITS/ML 3 ML PEN SC SCH ×2 (08:03→12:09)
[2021-01-11] MEDS: AMIODARONE 200 MG TAB PO SCH (08:06)
[2021-01-11] MEDS: FUROSEMIDE 40 MG TAB PO SCH (08:06)
[2021-01-11] MEDS: ASPIRIN 81 MG ECTAB PO SCH (08:06)
[2021-01-11] MEDS: METOPROLOL SUCC 25MG EXT REL TAB PO SCH (08:07)
[2021-01-11] MEDS: lisinopril 2.5 MG TAB PO SCH (08:07)
[2021-01-11] MEDS: PANTOprazole 40 MG TAB PO SCH (08:07)
--- NOTE | 2021-01-11 09:37 | Cardiology Progress Note ---
Date of Service January 11, 2021 Assessment & Plan (1) Atrial fibrillation with RVR: The patient is tolerating amiodarone. I will reduce the dose to 200 mg twice daily. His INR is subtherapeutic which will have to be adjusted as an outpatient. From a cardiac standpoint however I believe he can be discharged home with outpatient follow-up. I will arrange to follow-up through our clinic. (2) Cardiac pacemaker in situ: Pacemaker is functioning appropriately. (3) Hx of CABG: Patient's cardiac markers were negative on admission. I believe his chest pain was not due to acute coronary syndrome but due to the atrial fibrillation with a rapid heart rate. (4) Ischemic cardiomyopathy: Currently stable and on appropriate medications. Admission and Anticipated Discharge Date Admission Date: January 09, 2021 Subjective The patient had an uneventful night. She remains in a paced rhythm on telemetry. Review of Systems Review of Systems: All systems reviewed & are unremarkable except as noted in Subjective Physical Exam Physical Exam: General: no acute distress and stated age Head: normocephalic, no masses, lesions, tenderness or abnormalities Eyes: conjunctiva are pink and non-injected, sclera clear Neck: supple, no adenopathy, no bruits, normal jugular venous pulse, no hepatojugular reflux Chest: normal shape and normal respiratory effort Lungs: clear to auscultation and percussion Cardiac Exam: - regular rate & rhythm, no murmurs gallops or rubs - normal S1, normal S2 Pulses: 2(+) throughout Abdomen: abdomen soft, non-tender, no abnormal masses and no hepatosplenomegaly Musculoskeletal: no gait disturbance, no joint inflammation, no deforming arthri tis Extremities: no edema and no cyanosis Neuro: grossly normal exam Results & Data ([facility]) Vital Signs (Past 12 Hours) Vital Signs Temp Pulse Resp BP Pulse Ox 01/11/21 08:07 36.8 C 61 16 134/84 96 01/11/21 03:06 36.7 C 77 18 133/81 96 01/10/21 23:18 36.9 C 61 18 135/81 94 Laboratory Results Laboratory Results - last 24 hr 01/10/21 01/10/21 01/10/21 11:29 16:09 20:13 PT INR Sodium Potassium Chloride Carbon Dioxide Anion Gap BUN Creatinine Est Cr Clr Drug Dosing Est GFR ( Amer) Est GFR (Non-Af Amer) BUN/Creatinine Ratio Glucose POC Glucose 163 H 140 H 147 H Calcium Magnesium 01/11/21 01/11/21 01/11/21 05:30 05:30 07:08 PT 12.9 H INR 1.3 H Sodium 138 Potassium 4.1 Chloride 104 Carbon Dioxide 28 Anion Gap 6.0 BUN 23 H D Creatinine 0.94 Est Cr Clr Drug Dosing 71.5 Est GFR ( Amer) 87.8 Est GFR (Non-Af Amer) 75.7 BUN/Creatinine Ratio 24.9 H Glucose 177 H POC Glucose 164 H Calcium 8.8 Magnesium 2.2 Medications Administered Current Inpatient Medications Acetaminophen (Acetaminophen 325 Mg Tab) 650 mg PO Q4H PRN PRN Reason: Pain or Fever Stop: 02/07/21 21:31 Albuterol (Albut/Ipratrop 3mg/0.5mg Neb 3 Ml Vial) 3 ml NEB Q4R PRN PRN Reason: Shortness Of Breath Or Wheezing Stop: 02/08/21 10:59 Amiodarone HCl (Amiodarone 200 Mg Tab) 200 mg PO BIDM [facility] Stop: 02/10/21 16:59 Aspirin (Aspirin 81 Mg Ectab) 81 mg PO QAM [facility] Stop: 02/08/21 08:59 Last Admin: 01/11/21 08:06 Dose: 81 mg Documented by: Atorvastatin Calcium (Atorvastatin 20 Mg Tab) 20 mg PO HS [facility] Stop: 02/08/21 20:59 Last Admin: 01/10/21 20:20 Dose: 20 mg Documented by: Dextrose (Dextrose 50% 50 Ml Syringe) 25 - 50 ml IV UD PRN; Protocol PRN Reason: Hypoglycemia Protocol Stop: 02/07/21 21:31 Furosemide (Furosemide 40 Mg Tab) 40 mg PO DAILY [facility] Stop: 02/09/21 08:59 Last Admin: 01/11/21 08:06 Dose: 40 mg Documented by: Glucagon (Glucagon For Inj 1 Mg Vial) 1 mg SQ UD PRN; Protocol PRN Reason: Hypoglycemia Protocol Stop: 02/07/21 21:31 Glucose (Glucose 10 Tabs/Tube) 4 - 8 tabs PO UD PRN; Protocol PRN Reason: Hypoglycemia Protocol Stop: 02/07/21 21:31 Glucose (Glucose 40% Gel 15 Gm Tube) 15 - 30 gm PO UD PRN; Protocol PRN Reason: Hypoglycemia Protocol Stop: 04/26/21 21:31 Promethazine HCl 12.5 mg/ (Sodium Chloride) 50.5 mls @ 202 mls/hr IV Q6H PRN PRN Reason: Nausea And Vomiting Stop: 02/07/21 21:31 Insulin Aspart (Insulin Aspart 100 Units/Ml 3 Ml Pen) 0 units SC ACHS [facility] Stop: 02/07/21 21:31 Last Admin: 01/11/21 08:03 Dose: 6 units Documented by: Insulin Glargine (Insulin Glargine Solostar 100 Units/Ml 3 Ml Pen) 5 units SC DAILY [facility] Stop: 02/08/21 08:59 Last Admin: 01/11/21 08:03 Dose: 5 units Documented by: Lisinopril (Lisinopril 2.5 Mg Tab) 2.5 mg PO QAM [facility] Stop: 02/08/21 08:59 Last Admin: 01/11/21 08:07 Dose: 2.5 mg Documented by: Metoprolol Succinate (Metoprolol Succ 25mg Ext Rel Tab) 25 mg PO BID [facility] Stop: 02/07/21 21:31 Last Admin: 01/11/21 08:07 Dose: 25 mg Documented by: Miscellaneous (Carbohydrates For Hypoglycemia ) 15 - 30 gm PO UD PRN PRN Reason: Hypoglycemia Protocol Stop: 02/07/21 21:31 Morphine Sulfate (Morphine Sulfate 4 Mg/Ml 1 Ml Carp\Vial) 4 mg IV Q4H PRN PRN Reason: Pain Stop: 01/22/21 21:31 Nitroglycerin (Nitroglycerin Sl 0.4 Mg/Tab Tab) 0.4 mg SL UD PRN PRN Reason: Chest Pain Stop: 02/07/21 21:31 Pantoprazole Sodium (Pantoprazole 40 Mg Tab) 40 mg PO BID [facility] Stop: 02/07/21 21:31 Last Admin: 01/11/21 08:07 Dose: 40 mg Documented by: Potassium Chloride (Potassium Chloride 10 Meq Tabcr) 10 meq PO BID [facility] Stop: 02/08/21 08:59 Last Admin: 01/09/21 08:59 Dose: 10 meq Documented by: Tramadol HCl (Tramadol Hcl 50 Mg Tablet) 25 - 50 mg PO Q4H PRN PRN Reason: Pain Stop: 02/07/21 21:31 Warfarin Sodium (Warfarin Sod 10 Mg Tab) 10 mg PO DAILY@1600 [facility] Stop: 02/10/21 15:59
[2021-01-11 11:28] VITALS: BP 128/83; PULSE 64; TEMP 97.3; O2SAT 95
--- NOTE | 2021-01-11 12:02 | Hospitalist Progress Note ---
Date of Service January 11, 2021 Assessment & Plan (1) Chest pain: Atrial fibrillation with RVR Chest pain likely secondary to above H/O SSS s/p Pacemaker CTA showed no PE. 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> 1.4>1.3 Increase Coumadin to 10 mg today Amiodarone decreased to 200 mg twice a day--further titration as outpatient Heparin SQ while INR subtherapeutic Needs follow up with Coumadin Clinic upon discharge CAD S/P CABG Continue aspirin, statin, metoprolol, lisinopril currently denies any chest pain Chronic systolic heart failure H/O Ischemic cardiomyopathy Continue home diuretics Monitor volume status H/O PVD Continue statin, aspirin Hyperlipidemia on statin Metastatic prostate cancer S/P Radiation, Lupron Progressive disease on Imaging Follow up with Oncology as outpatient Awaiting insurance coverage approval for Enzalutamide. AL on CPAP H/O PE/DVT On coumadin DM II Hold PO meds Continue Insulin Monitor BGs DVT Px: Coumadin Heparin SQ Code Status Full code Admission and Anticipated Discharge Date Admission Date: January 09, 2021 Subjective Patient is seen and examined at bedside No new complaints Feels well Eager to get discharged Denies chest pain, dyspnea, dizziness, nausea, abdominal pain Plan to discharge home today Review of Systems Review of Systems: All systems reviewed & are unremarkable except as noted in HPI & below Physical Exam Physical Exam: Physical Exam: Vitals signs as noted above General Appearance:Moderately built and nourished, no apparent distress Head: normocephalic, Atraumatic Eyes: normal inspection, EOMI Neck: supple, Trachea midline Respiratory/Chest: Normal breath sounds, CTA, No accessory muscle use Cardiovascular: S1, S2, + murmur Abdomen/GI:Soft, Non tender, Bowel sounds present Extremities/Musculoskeletal:normal inspection, no edema Neurologic/Psych:AAOX3, grossly no focal neurological deficits Skin: normal color, warm Results & Data Results & Data ([facility]) Vital Signs (Past 12 Hours) Vital Signs Temp Pulse Pulse Resp BP Pulse Ox 01/11/21 11:23 36.3 C L 64 19 128/83 95 01/11/21 08:07 36.8 C 61 16 134/84 96 01/11/21 08:00 62 01/11/21 03:06 36.7 C 77 18 133/81 96 Laboratory Results [facility] [place] 01/11/21 05:30 Sodium 138 Potassium 4.1 Chloride 104 Carbon Dioxide 28 BUN 23 H D Creatinine 0.94 Glucose 177 H Calcium 8.8
--- NOTE | 2021-01-11 12:12 | Discharge Summary ---
Date of Service January 11, 2021 Admission HPI Per Admitting Provider History obtained from patient, family, and records. Medical history significant for chronic systolic heart failure (EF 37%, TTE 2020) secondary ischemic cardiomyopathy, valvular heart disease (moderate aortic stenosis, mild mitral regurgitation on recent TTE), pulmonary hypertension, CAD status post CABG status post stent, PVD as per records, SSS sp PPM on Coumadin, hypertension, hyperlipidemia, AL on CPAP, PE/DVT as per records, DM2 on oral medications, metastatic prostate cancer status post radiation sp Lupron, chronic anemia (baseline hemoglobin 12), past tobacco abuse. Last confinement September 2020 for respiratory failure secondary to severe COVID-19 pneumonia. Patient has has been feeling tired the last few months, at rest and more so on exertion. Denies depression. Compliant with home CPAP machine although last outpatient [facility] [place] visit was almost 2 years ago. Recent outpatient [facility] cardiology visit 10 days ago. Chronic fatigue and stable exertional dyspnea symptoms as per documentation. Outpatient ICD interrogation from 3 weeks ago demonstrated appropriate function with adequate battery reserve. Rhythm predominantly atrial paced. Time in AT/AF less than 0.1%. NSVT totaling 5 short episodes. Patient noted intermittent chest tightness symptoms the last few days, not radiating. Symptoms somewhat worse today, patient had a little more short of breath than usual without unusual cough symptoms. Denies palpitations. No unusual stress at home. No fluid retention. Compliant with home medications. EMS called by patient family. Patient noted to be in rapid A. fib, cardiac rate 160s. IV Cardizem bolus prior to ER arrival. Patient currently comfortable at the ER. 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 Admission Exam Per Admitting Provider Physical Exam Physical Exam: GENERAL: Comfortable, obese, no respiratory distress SKIN: Pallor, warm HEENT: Pale palpebral conjunctivae, no ptosis, dry buccal mucosa NECK : Supple, short neck, no tenderness CHEST : Decreased breath sounds, no tenderness HEART : RRR, systolic murmur ABDOMEN: Some distention, nontender EXTREMITIES : Minimal LE swelling, no LE tenderness, no other conspicuous deformities noted NEUROLOGIC : Coherent, no facial asymmetry, no other gross focality Principal Diagnosis Atrial fibrillation with RVR Subtherapeutic INR Discharge Data Allergies Allergy/AdvReac Type Severity Reaction Status Date / Time No Known Allergies Allergy Verified 01/08/21 18:58 Consultations 01/08/21 19:46 ED Decision to Admit Stat 01/08/21 21:32 Consult Cardiology Routine Procedures Performed CTA: 1. No evidence for pulmonary embolus. 2. Mediastinal and hilar lymphadenopathy with multiple bilateral pulmonary nodules as described above. This is consistent with neoplastic/metastatic disease. 3. There is moderate narrowing of the right middle and lower lobe bronchi and pulmonary arteries due to the mass effect from the enlarged right hilar lymph node. 4. Possible left hepatic lobe lesions. This could also represent additional sites of metastatic disease. 5. Additional findings as described above. CT Head: No significant change compared to the prior study. No acute intracranial abnormality. Ordered Studies 01/08/21 17:34 CT head/brain wo con Stat 01/08/21 17:35 CT angio chest PE protocol Stat Hospital Course (1) Chest pain: Atrial fibrillation with RVR Chest pain likely secondary to above H/O SSS s/p Pacemaker CTA showed no PE. 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 feed operator INR:2.0> 1.4>1.3 Increase Coumadin to 10 mg today Amiodarone decreased to 200 mg twice a day--further titration as outpatient Heparin SQ while INR subtherapeutic Needs follow up with Coumadin Clinic upon discharge CAD S/P CABG Continue aspirin, statin, metoprolol, lisinopril currently denies any chest pain Chronic systolic heart failure H/O Ischemic cardiomyopathy Continue home diuretics Monitor volume status H/O PVD Continue statin, aspirin Hyperlipidemia on statin Metastatic prostate cancer S/P Radiation, Lupron Progressive disease on Imaging Follow up with Oncology as outpatient Awaiting insurance coverage approval for Enzalutamide. AL on CPAP H/O PE/DVT On coumadin DM II Hold PO meds Continue Insulin Monitor BGs DVT Px: Coumadin Heparin SQ Code Status Full code Total Time Total Time Spent Total Time Spent (In Minutes): 42 minutes Total Time Includes: Examination of the Patient, Discharge Planning, Medication Reconciliation, Communication With Other Providers and Other Discharge Plan Discharge Items Patient Disposition: Home - Self-Care Reason For Visit: CP Discharge Diagnosis: Atrial fibrillation with RVR Subtherapeutic INR Activity: Per Instructions section Exercise/Sports: Wait until after follow-up appointment Non-emergency contact: Primary Care Provider and Structural 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 Horvath as advised Follow-up with Coumadin clinic for management of Coumadin dosing based on PT/INR Your PT/INR is 1.3 today (01/11/21). Take 10mg Coumadin today. Your Target PT/INR is between 2.0 to 3.0 Get Blood Test tomorrow (PT/INR on 01/12/21) and follow-up with Coumadin clinic for adjustment of your Coumadin dosing. Start taking amiodarone 200 mg twice a day as recommended by your it compliance manager. Follow-up with your it compliance manager in a week for further adjustment of amiodarone dose. Seek immediate medical attention if your symptoms reoccur or worsen Pending Studies at Discharge: No Stand-Alone Forms: My [facility] Foodlve, Smoking Cessation Medications and DC Order Prescriptions: New amiodarone 200 mg Tablet 200 mg PO BIDM Qty: 60 RF: 0 atorvastatin 20 mg Tablet 20 mg PO HS Qty: 30 RF: 0 Continued glipizide 10 mg tablet extended release 24hr 10 mg PO BID RF: 0 omeprazole 20 mg capsule,delayed release(DR/EC) 20 mg PO BID RF: 0 aspirin 81 mg tablet,chewable 81 mg PO QAM RF: 0 metoprolol succinate 25 mg tablet extended release 24 hr 25 mg PO BID RF: 0 metformin 500 mg tablet extended release 24 hr 500 mg PO QAM RF: 0 lisinopril 2.5 mg tablet 2.5 mg PO QAM RF: 0 potassium chloride [Klor-Con M10] 10 mEq tablet,ER particles/crystals 10 meq PO BID RF: 0 Glucosamine Chondroitin 550-30-1 mg Capsule 1 cap PO BID RF: 0 nitroglycerin [Nitrostat] 0.4 mg Tablet, Sublingual 0.4 mg sublingual DIRECTED PRN (Reason: Chest Pain) RF: 0 pioglitazone 45 mg tablet 45 mg PO QAM RF: 0 fluocinonide 0.05 % Solution 1 applic TOPICAL DAILY PRN (Reason: Itching) RF: 0 ketoconazole 2 % shampoo 1 applic TOPICAL .UD RF: 0 acetaminophen [Tylenol] 325 mg Tablet 975 mg PO QID PRN (Reason: Fever Or Pain) RF: 0 ascorbic acid (vitamin C) 250 mg Tablet 0 mg PO DAILY RF: 0 cholecalciferol (vitamin D3) 25 mcg (1,000 unit) Tablet 0 mcg PO DAILY RF: 0 warfarin 5 mg Tablet 5 mg PO UD RF: 0 furosemide [Lasix] 40 mg Tablet 40 mg PO DAILY RF: 0 Discharge Orders: Discharge Order (Routine); Ordered 01/11/21 Ordered By: Bernard Kruger Admission Data Admit Date/Time: 01/09/21 16:26 Attending Provider: Bernard Kruger Admit Provider: Austyn Thompson Primary Care Provider: Justa Lebron Other Providers: Austyn Thompson ; Rahul Kent ; Hayes Blanco ; Joao Clark ; Az Meier ; Pavan Horvath ; Fredy Loza ; Marie Hernandez ; Becka Orozco ; Vitaliy Walker Other Interventions: Discharge Summary Assessment (RN) Last Done: 01/11/21 12:18
--- NOTE | 2021-01-11 15:16 | Electrocardiogram Report ---
Test Reason : Blood Pressure : / mmHG Vent. Rate : 064 BPM Atrial Rate : 064 BPM P-R Int : 234 ms QRS Dur : 146 ms QT Int : 478 ms P-R-T Axes : 024 093 080 degrees QTc Int : 493 ms Atrial-paced rhythm with prolonged AV conduction Right bundle branch block Inferior infarct (cited on or before 28-MAY-2016) Abnormal ECG When compared with ECG of 08-JAN-2021 16:36, Premature atrial complexes are no longer Present Criteria for Anterior infarct are no longer Present Confirmed by John Benton ([id number]) on 01/11/2021 3:15:50 PM Referred By: REFERRED SELF Confirmed By:John Benton
[2021-01-11] MEDS ORDERED: WARFARIN SOD 10 MG TAB PO SCH (16:00)
[2021-01-11] MEDS ORDERED: AMIODARONE 200 MG TAB PO SCH (17:00)
== END 2021-01-11 13:45 | disposition home or self-care (01) | DRG 309 ==
LOC: ED 16:29 → 2S 16:29

== ENCOUNTER 2021-01-13 09:41 | Observation (INO) ==
[2021-01-13 11:45] LABS: Eosinophils # (auto) 0.04 K/uL (0-0.5); Eosinophils % (auto) 0.8 %; Hematocrit (blood only) 41.2 % (42-52); Hemoglobin 13.9 g/dL (14.0-18.0); Immature Granulocytes # (auto) 0.01 K/uL (0.00-0.02); Immature Granulocytes % (auto) 0.2 %; Lymphocytes # (auto) 1.36 K/uL (1.2-3.4); Mean Corpuscular Hemoglobin 29.8 pg (25-34); Mean Corpuscular Hgb Conc 33.7 g/dL (32-36); Mean Corpuscular Volume 88.2 fL (80-100); Monocytes # (auto) 0.48 K/uL (0.11-0.59); Monocytes % (auto) 9.2 %; Neutrophils # (auto) 3.35 K/uL (1.4-6.5); Neutrophils % (auto) 63.8 %; Platelet Count 216 K/uL (130-400); RDW Coefficient of Variation 14.1 % (11.5-14.5); RDW Standard Deviation 45.6 fL (36.4-46.3); Red Blood Count 4.67 M/uL (4.7-6.1); White Blood Count 5.24 K/uL (4.8-10.8)
--- NOTE | 2021-01-13 11:55 | XRay Report ---
XR chest 1V portable HISTORY: 80 years-old Male Chest Pain acute atypical chest pain COMPARISON: Chest radiograph and CTA chest 01/08/2021 TECHNIQUE: Portable AP view of the chest FINDINGS: Unchanged cardiac silhouette with prior median sternotomy. Left subclavian pacer. Asymmetric right hi lar prominence. Bilateral pulmonary nodules are better characterized on comparison chest CT. Mildly i mproved aeration of the lung bases with persistent interstitial coarsening. No pneumothorax, large pl eural effusion or overt pulmonary edema. Bones of the chest appear grossly intact. IMPRESSION: 1. Mildly improved aeration of the lung bases with mild persistent interstitial opacities. 2. Right hilar prominence corresponding to pathologic adenopathy is redemonstrated along with bilater al pulmonary nodules. ACT 112: Negative or not required by law. The above report was generated using voice recognition software. It may contain grammatical, syntax o r spelling errors. Electronically signed by: Sanjiv Hooks M.D. 01/13/2021 11:53 AM
[2021-01-13 11:58] LABS: INR 1.6 (0.9-1.1); Partial Thromboplastin Ratio 1.2; Partial Thromboplastin Time 31.2 Seconds (21.0-31.0); Prothrombin Time 16.1 Seconds (9.0-12.0)
[2021-01-13 12:02] LABS: Alanine Aminotransferase 32 U/L (12-78); Albumin Level 3.6 gm/dl (3.4-5.0); Aspartate Aminotransferase 25 U/L (15-37); BUN Creatinine Ratio 23.6 (10-20); Blood Urea Nitrogen 25 mg/dl (7-18); Calcium 8.9 mg/dl (8.5-10.1); Carbon Dioxide 26 mmol/L (21-32); Chloride 104 mmol/L (98-107); Creatinine Clr Calc Pharmacy 65.4 ml/min; Est GFR (African American) 77.7; Glucose 179 mg/dl (70-99); Lipase 127 U/L (73-393); Potassium 3.9 mmol/L (3.5-5.1); Sodium 136 mmol/L (136-145)
[2021-01-13 12:14] LABS: Albumin Globulin Ratio 0.9 (0.9-2); Alkaline Phosphatase 144 U/L (45-117); Bilirubin,Total 0.5 mg/dl (0.2-1); Creatine Kinase 123 U/L (39-308); Creatine Kinase MB 2.3 ng/ml (0.5-3.6); Globulin 4.2 gm/dl (2.5-4.0); Total Protein 7.8 gm/dl (6.4-8.2); Troponin I < 0.015 ng/ml (0-0.045)
[2021-01-13] MEDS ORDERED: LEVALBUTEROL HCL 1.25 MG/3 ML NEB NEB STA (12:51)
[2021-01-13 13:06] LABS: Influenza A virus by PCR Negative (Neg); Influenza B virus by PCR Negative (Neg); RSV by PCR Negative (Neg); SARS CoV2 RNA(COVID-19) InHosp NEGATIVE (Negative)
[2021-01-13] MEDS ORDERED: Heparin IV Adult Wt-Based Standard *NO* Bolus Protocol IV ONE (13:13)
[2021-01-13] MEDS ORDERED: CARBOHYDRATES FOR HYPOGLYCEMIA PO PRN (13:26)
[2021-01-13] MEDS ORDERED: GLUCOSE 10 TABS/TUBE PO PRN (13:26)
[2021-01-13] MEDS ORDERED: GLUCOSE 40% GEL 15 GM TUBE PO PRN (13:26)
[2021-01-13] MEDS ORDERED: GLUCAGON FOR INJ 1 MG VIAL SQ PRN (13:26)
[2021-01-13] MEDS ORDERED: DEXTROSE 50% 50 ML SYRINGE IV PRN (13:26)
--- NOTE | 2021-01-13 13:55 | History & Physical Report ---
Date of Service January 13, 2021 Assessment & Plan (1) Chest pain: Atypical Chest Pain Likely Pleuritic/musculoskeletal H/O CAD S/P CABG R/O ACS Initial troponin:Negative EKG shows:No signs of acute ischemia CXR: Mildly improved aeration of the lung bases with mild persistent interstiti al opacities. Right hilar prominence corresponding to pathologic adenopathy is redemonstrated along with bilateral pulmonary nodules. Trend serial cardiac enzymes, repeat EKG Continue Aspirin, statin, Metoprolol Cardiology consult NTG PRN Given subtherapeutic INR, will start on IV heparin and DC once INR is therapeutic Monitor INR and adjust Coumadin dose accordingly We will give 10 mg Coumadin today Check Venous Doppler Saturating well on room air Repeat EKG in the morning Consider pacemaker interrogation, echo if needed Subtherapeutic INR INR: 1.6 Started on IV heparin Continue Coumadin Monitor INR Atrial fibrillation H/O SSS s/p Pacemaker Continue amiodarone, metoprolol cardiology consulted On Coumadin for anticoagulation Chronic systolic heart failure H/O Ischemic cardiomyopathy Euvolemic currently Continue home diuretics Monitor volume status H/O PVD Continue statin, aspirin Hyperlipidemia on statin Metastatic prostate cancer S/P Radiation, Lupron Progressive disease on recent CT Follow up with Oncology as outpatient Awaiting insurance coverage approval for Enzalutamide. AL on CPAP H/O PE/DVT On Coumadin DM II HbA1C:6.3 Hold PO meds Continue Insulin Monitor BGs DVT Px: Coumadin, IV Heparin Code Status Full code Disposition Expected discharge home when medically stable History of Present Illness Chief Complaint: Chest Pain Primary Care Provider: Fredy Loza Patient is an 80-year-old male with history of ischemic cardiomyopathy, valvular heart disease, pulmonary hypertension, coronary artery disease S/P CABG, peripheral vascular disease, SSS S/P PPM, hypertension, hyperlipidemia, AL on CPAP, H/O DVT, PE, DM II, metastatic prostate cancer, past tobacco use and other medical problems who was recently discharged from [facility] after being treated for A. fib RVR presents with history of right-sided chest pain from this morning. Patient states chest pain is right-sided, 5/10 intensity, dull, nonexertional, increases with deep breathing, radiates to right shoulder, associated with chronic dyspnea on exertion which is unchanged. He admits to taking his medications regularly and follow-up with Coumadin clinic for managing his Coumadin dosing. Denies any history of SOB at rest, palpitations, dizziness, cough, hemoptysis, fever, chills, fall, chest trauma, LOC, headache, nausea, vomiting, abdominal pain. Chest x-ray showed mildly improved aeration of the lung bases with mild persistent interstitial opacities. Right hilar prominence corresponding to pathologic adenopathy is redemonstrated along with bilateral pulmonary nodules. His INR is subtherapeutic at 1.6. EKG showed no signs of acute ischemia. Allergies Allergy/AdvReac Type Severity Reaction Status Date / Time No Known Allergies Allergy Verified 01/13/21 11:27 Home Medications Medication Instructions Recorded Confirmed Type Glucosamine Chondroitin 1 cap PO BID 02/21/19 01/13/21 History aspirin 81 mg PO QAM 02/21/19 01/13/21 History glipizide 10 mg PO BID 02/21/19 01/13/21 History lisinopril 2.5 mg PO QAM 02/21/19 01/13/21 History metformin 500 mg PO QAM 02/21/19 01/13/21 History metoprolol succinate 25 mg PO BID 02/21/19 01/13/21 History nitroglycerin [Nitrostat] 0.4 mg SUBLINGUAL DIRECTED PRN 02/21/19 01/13/21 History omeprazole 20 mg PO BID 02/21/19 01/13/21 History potassium chloride [Klor-Con M10] 10 meq PO BID 02/21/19 01/13/21 History fluocinonide 1 applic TOPICAL DAILY PRN 09/20/20 01/13/21 History ketoconazole 1 applic TOPICAL DIRECTED 09/20/20 01/13/21 History pioglitazone 45 mg PO QAM 09/20/20 01/13/21 History acetaminophen [Tylenol] 975 mg PO QID PRN 01/08/21 01/13/21 History ascorbic acid (vitamin C) 0 mg PO QAM 01/08/21 01/13/21 History cholecalciferol (vitamin D3) 0 mcg PO DAILY 01/08/21 01/13/21 History furosemide [Lasix] 40 mg PO DAILY 01/09/21 01/13/21 History warfarin 5 mg PO UD 01/09/21 01/13/21 History amiodarone 200 mg PO BIDM #60 tab 01/11/21 01/13/21 Rx atorvastatin 20 mg PO HS #30 tab 01/11/21 01/13/21 Rx Past Med/Surg History Medical History Asthma DM2 (diabetes mellitus, type 2) DVT (deep venous thrombosis) "RLE" Dyspnea on minimal exertion History of left heart catheterization (LHC) "60% stenosis mid left anterior descending " HLD (hyperlipidemia) Hyperlipidemia Hypertension Hypoxia AL on CPAP Paroxysmal atrial fibrillation Prostate cancer (10/22/17) Systolic ejection murmur Tachy-shanita syndrome Surgical History H/O esophagogastroduodenoscopy Hx of total knee arthroplasty S/P CABG x 1 S/P cholecystectomy S/P hip replacement S/P knee replacement Family History Other No pertinent family history Social History Smoking Status: Never smoker Cigarettes Per Day: 40; Hx Alcohol Use: No Hx Substance Use: No Preferred Language: Vietnamese Communication Ability: Effective Visual Impairment: No Limitations Hearing Ability: Normal Beliefs That Will Affect Care: None marital status: Current Living Situation: Spouse Feels Safe at Home: Yes Assistive Devices: Glasses Review of Systems Review of Systems: All systems reviewed & are unremarkable except as noted in HPI & below Physical Exam Physical Exam: Physical Exam: Vitals signs as noted above General Appearance:Obese, no apparent distress Head: normocephalic, Atraumatic Eyes: normal inspection, EOMI Neck: supple, Trachea midline Respiratory/Chest: Normal breath sounds, CTA, No accessory muscle use, + Pacemaker on Left side + No chest tenderness on palpation Cardiovascular: S1, S2, + systolic murmur Abdomen/GI:Soft, Non tender, Bowel sounds present Extremities/Musculoskeletal:normal inspection, no edema Neurologic/Psych:AAOX3, grossly no focal neurological deficits Skin: normal color, warm Results & Data Results & Data ([facility]) Vital Signs (Past 12 Hours) Vital Signs Temp Pulse Pulse Resp BP BP Pulse Ox 01/13/21 13:09 64 18 95 01/13/21 13:00 60 14 95 04/01/21 12:50 65 17 96 01/13/21 12:40 65 21 77 L 01/13/21 12:31 60 15 93 01/13/21 12:30 60 15 146/71 H 93 01/13/21 12:20 60 15 92 01/13/21 12:10 63 22 93 01/13/21 12:00 60 19 118/74 01/13/21 11:50 61 17 95 01/13/21 11:42 112 H 14 01/13/21 11:31 60 20 128/88 92 01/13/21 11:30 60 17 92 01/13/21 11:27 13 152/79 H 96 01/13/21 11:23 62 17 152/79 H 95 01/13/21 11:22 63 16 94 01/13/21 11:00 94 01/13/21 10:50 67 14 93 01/13/21 10:40 60 16 91 01/13/21 10:31 75 21 94 01/13/21 10:30 72 17 161/81 H 94 01/13/21 10:20 61 17 95 01/13/21 10:10 62 21 169/95 H 96 01/13/21 09:46 36.8 C 62 18 158/89 H 96 Laboratory Results Short CBC 01/13/21 Range/Units 10:16 WBC 5.24 (4.8-10.8) K/uL Hgb 13.9 L (14.0-18.0) g/dL Hct 41.2 L (42-52) % Plt Count 216 (130-400) K/uL BMP 01/13/21 10:16 Sodium 136 Potassium 3.9 Chloride 104 Carbon Dioxide 26 BUN 25 H Creatinine 1.04 Glucose 179 H Calcium 8.9 Cardiac Enzymes 01/13/21 Range/Units 10:16 Total Creatine Kinase 123 (39-308) U/L CK-MB (CK-2) 2.3 (0.5-3.6) ng/ml Troponin I < 0.015 (0-0.045) ng/ml Liver Function 01/13/21 Range/Units 10:16 Total Bilirubin 0.5 (0.2-1) mg/dl AST 25 (15-37) U/L ALT 32 (12-78) U/L Alkaline Phosphatase 144 H (45-117) U/L Albumin 3.6 (3.4-5.0) gm/dl Diagnostic Findings CXR: 1. Mildly improved aeration of the lung bases with mild persistent interstitial opacities. 2. Right hilar prominence corresponding to pathologic adenopathy is redemonstrated along with bilateral pulmonary nodules. ECG Additional Comments: EKG: Atrial paced rhythm. Bifascicular block. Code Status & VTE Plan VTE Prophylaxis Plan VTE Prophylaxis will be ordered: Yes
[2021-01-13] MEDS: HEPARIN SODIUM/DEXTROSE 25,000 UNITS/500 ML BAG IV SCH (14:49)
--- NOTE | 2021-01-13 15:02 | Emergency Department Note ---
Impression & Plan Chest pain, Hx of CABG, Subtherapeutic international normalized ratio (INR) ED Provider Note NAME: PAULA DORSEY AGE: 80 SEX: M : 1940 ARRIVES VIA: Walk-In INFORMANT: Patient, ED PROVIDER(S): Shiva Bell MD CHIEF COMPLAINT: Right sided chest pain HPI: This is an 80-year-old male who presents emergency department complaining of right-sided chest pain. The patient was just recently admitted to the hospital. He has a complicated cardiac history including bypass as well as a pacemaker. The patient reports he woke up this morning and is complaining of right-sided chest pain made worse when he takes a deep breath. He denies any pain with exertion. He reports nothing seems to make the pain better or worse. The patient is on Coumadin. He has not taken anything for the pain prior to arrival. ROS: See above HPI for pertinent positives & negatives. A total of 10 systems reviewed and were otherwise negative. PAST MEDICAL HISTORY: See Below PAST SURGICAL HISTORY: See Below FAMILY HISTORY: See Below SOCIAL HISTORY: See Below HOME MEDICATIONS: See Below ALLERGIES: See Below VITALS: See Below PHYSICAL EXAMINATION: VITAL SIGNS - Vital signs and nursing notes were reviewed. GENERAL - 80-year-old male appearing stated age who is in no acute distress. Communicates well with provider and answers questions appropriately. SKIN - Without rashes. HEAD - NC/AT. EYES - PERRL with EOMI bilaterally. Sclera anicteric. Palpebral conjunctiva pink and moist with no injection noted. EARS - No deformities of external structures noted on gross examination bilaterally. NOSE - Midline and without cyanosis. No epistaxis or purulent drainage noted. Septum midline without deviation or septal hematoma noted. MOUTH/OROPHARYNX - Without perioral cyanosis. Buccal mucosa pink and moist and without leukoplakia. Tongue midline with equal elevation of palate bilaterally. No tonsillar hypertrophy, erythema, or exudates noted. dentition noted. NECK - Neck with FROM. Supple to palpation. lymphadenopathy noted. No nuchal rigidity. LUNGS - Chest wall symmetric without accessory muscle use, intercostals retractions, or central cyanosis. Normal vesicular breath sounds CTA B/L. No wheezes, rales, or rhonchi appreciated. CARDIAC - RRR with S1/S2. No murmur, rubs, or gallops appreciated. ABDOMEN - Abdominal contour without pulsations or visible masses. BS normo active all four quadrants. No tenderness, palpable masses, hepatosplenomegaly, or ascites noted. EXTREMITIES - No clubbing or peripheral cyanosis. No pretibial edema present. +3/5 radial, posterior tibial, and dorsalis pedis pulses palpated throughout. +5/5 strength noted in UE/LE bilaterally. NEUROLOGIC - Cranial nerves II through XII grossly intact. Sensory intact to light touch throughout. Patellar reflexes +2/4. PSYCH - A&Ox3 and cooperates fully with examiner. Pt is very pleasant and int eracts well with examiner. MEDICAL DECISION MAKING: Patient was seen and evaluated as above in room A12. Review was performed of nursing notes and vital signs. I did review pertinent previous visits and patient history. After obtaining a thorough history and physical examination the above work up was performed. This is an 80-year-old male who presents emergency department complaining of shortness of breath. Patient's Covid test is negative EKG is unchanged from previous however the patient's INR is not yet therapeutic. Based on the fact that he is having pleuritic chest pain the decision was made to start the patient on IV heparin. I did discuss the case with both cardiology as well as the hospitalist service who did agree to admit the patient. Both patient and are in agreement with the treatment plan. While in the department, I personally reevaluated the patient several times and each time the patient was found to be resting comfortably. The patient was educated upon management, educated upon todays findings/results, educated upon importance of follow up from today's visit, educated upon symptoms in which to return, had questions answered prior to discharge, verbalized understanding, and was discharged home in good condition. An order was placed for continuous cardiac monitoring. The monitor shows a rate of 61 with Normal Sinus rhythm. The patient was evaluated during a period of high volume and high acuity during the global COVID-19 pandemic, and that diagnosis was suspected/considered upon their initial presentation. Their evaluation, treatment and testing was consistent with current guidelines for patients who present with complaints or symptoms that may be related to COVID-19. Patient was seen while provider was wearing PPE. Triage Nursing notes reviewed. Prior medical records reviewed Vital Signs: reviewed and remarkable for no significant abnormalities Differential diagnosis: Reactive airway disease, pneumonia, pneumothorax, COPD, CHF, infections, cardiac ischemia, pulmonary embolism, musculoskeletal, gastrointestinal, as well as other pathologies. ER treatment provided: See below Diagnostics interpreted by me: ECG: Atrial paced rhythm right bundle branch block left posterior fascicular block, bifascicular block when compared to EKG of 01/11/2021 left fascicular block is now present the QTC is 508 ventricular rate is 72 Laboratory studies: As stated above and show below. Imaging studies: See below Consultation(s): hospitalist, cardiology Past Med/Surg History Medical History Asthma DM2 (diabetes mellitus, type 2) DVT (deep venous thrombosis) "RLE" Dyspnea on minimal exertion History of left heart catheterization (LHC) "60% stenosis mid left anterior descending " HLD (hyperlipidemia) Hyperlipidemia Hypertension Hypoxia AL on CPAP Paroxysmal atrial fibrillation Prostate cancer (10/22/17) Systolic ejection murmur Tachy-shanita syndrome Surgical History H/O esophagogastroduodenoscopy Hx of total knee arthroplasty S/P CABG x 1 S/P cholecystectomy S/P hip replacement S/P knee replacement Family History Other No pertinent family history Social History Smoking Status: Former smoker Cigarettes Per Day: 40; Second Hand Exposure: No; Do You Dip or Chew Tobacco: No; Tobacco Cessation Education Requested by Patient: No Hx Alcohol Use: No Hx Substance Use: No Preferred Language: Japanese Communication Ability: Effective Visual Impairment: No Limitations Hearing Ability: Normal [employer] Secretary Required: No Beliefs That Will Affect Care: None marital status: Current Living Situation: Spouse Current Living Situation Comment: house Other Information That Helps Us Care for You: No Feels Safe at Home: Yes Safety Concerns: Feels Safe At This Time Assistive Devices: Cane Assistive Devices Comment: Uses only for long distances Allergies Allergies Allergy/AdvReac Type Severity Reaction Status Date / Time No Known Allergies Allergy Verified 01/13/21 11:27 Home Meds Home Medications Medication Instructions Recorded Confirmed Glucosamine Chondroitin 1 cap PO BID 02/21/19 01/13/21 aspirin 81 mg PO QAM 02/21/19 01/13/21 glipizide 10 mg PO BID 02/21/19 01/13/21 lisinopril 2.5 mg PO QAM 02/21/19 01/13/21 metformin 500 mg PO QAM 02/21/19 01/13/21 metoprolol succinate 25 mg PO BID 02/21/19 01/13/21 nitroglycerin [Nitrostat] 0.4 mg SUBLINGUAL DIRECTED PRN 02/21/19 01/13/21 omeprazole 20 mg PO BID 02/21/19 01/13/21 potassium chloride [Klor-Con M10] 10 meq PO BID 02/21/19 01/13/21 fluocinonide 1 applic TOPICAL DAILY PRN 09/20/20 01/13/21 ketoconazole 1 applic TOPICAL DIRECTED 09/20/20 01/13/21 pioglitazone 45 mg PO QAM 09/20/20 01/13/21 acetaminophen [Tylenol] 975 mg PO QID PRN 01/08/21 01/13/21 ascorbic acid (vitamin C) 0 mg PO QAM 01/08/21 01/13/21 cholecalciferol (vitamin D3) 0 mcg PO DAILY 01/08/21 01/13/21 furosemide [Lasix] 40 mg PO DAILY 01/09/21 01/13/21 warfarin 5 mg PO UD 01/09/21 01/13/21 Previous Rx's Medication Instructions Recorded amiodarone 200 mg PO BIDM #60 tab 01/11/21 atorvastatin 20 mg PO HS #30 tab 01/11/21 Results & Data (ED) Vital Signs Vital Signs - 24 hr 01/13/21 09:46 01/13/21 10:10 01/13/21 10:20 Temperature 36.8 C Temperature Source Oral Pulse Rate 62 62 61 Pulse Rate [Apical] Pulse Rate from SpO2 Sensor 62 61 Pulse Rhythm Regular Pulse Strength Normal Respiratory Rate 18 21 17 Respiratory Effort / Characteristics Non-Labored Respiratory Depth Normal Respiratory Pattern Regular Blood Pressure 158/89 H 169/95 H Blood Pressure [Left Arm] Blood Pressure Mean 112 119 Blood Pressure Mean [Left Arm] Blood Pressure Position Sitting Blood Pressure Position [Left Arm] Pulse Oximetry 96 96 95 Oxygen Delivery Method Room Air Sepsis Recent Fever Within 48 Hours No Sepsis New/Unexplained Change in Mental Status No Sepsis Action Taken by Nursing No Action Required 01/13/21 10:30 01/13/21 10:31 01/13/21 10:40 Temperature Temperature Source Pulse Rate 72 75 60 Pulse Rate [Apical] Pulse Rate from SpO2 Sensor 71 67 60 Pulse Rhythm Pulse Strength Respiratory Rate 17 21 16 Respiratory Effort / Characteristics Respiratory Depth Respiratory Pattern Blood Pressure 161/81 H Blood Pressure [Left Arm] Blood Pressure Mean 107 Blood Pressure Mean [Left Arm] Blood Pressure Position Blood Pressure Position [Left Arm] Pulse Oximetry 94 94 91 Oxygen Delivery Method Sepsis Recent Fever Within 48 Hours Sepsis New/Unexplained Change in Mental Status Sepsis Action Taken by Nursing 01/13/21 10:50 01/13/21 11:00 01/13/21 11:22 Temperature Temperature Source Pulse Rate 67 63 Pulse Rate [Apical] Pulse Rate from SpO2 Sensor 68 62 54 L Pulse Rhythm Pulse Strength Respiratory Rate 14 16 Respiratory Effort / Characteristics Respiratory Depth Respiratory Pattern Blood Pressure Blood Pressure [Left Arm] Blood Pressure Mean Blood Pressure Mean [Left Arm] Blood Pressure Position Blood Pressure Position [Left Arm] Pulse Oximetry 93 94 94 Oxygen Delivery Method Sepsis Recent Fever Within 48 Hours Sepsis New/Unexplained Change in Mental Status Sepsis Action Taken by Nursing 01/13/21 11:23 01/13/21 11:27 01/13/21 11:30 Temperature Temperature Source Pulse Rate 62 60 Pulse Rate [Apical] Pulse Rate from SpO2 Sensor 62 60 Pulse Rhythm Pulse Strength Respiratory Rate 17 13 17 Respiratory Effort / Characteristics Non-Labored Respiratory Depth Normal Respiratory Pattern Blood Pressure 152/79 H Blood Pressure [Left Arm] 152/79 H Blood Pressure Mean 103 Blood Pressure Mean [Left Arm] 103 Blood Pressure Position Blood Pressure Position [Left Arm] Sitting Pulse Oximetry 95 96 92 Oxygen Delivery Method Room Air Sepsis Recent Fever Within 48 Hours Sepsis New/Unexplained Change in Mental Status Sepsis Action Taken by Nursing 01/13/21 11:31 01/13/21 11:42 01/13/21 11:50 Temperature Temperature Source Pulse Rate 60 112 H 61 Pulse Rate [Apical] Pulse Rate from SpO2 Sensor 60 61 Pulse Rhythm Pulse Strength Respiratory Rate 20 14 17 Respiratory Effort / Characteristics Respiratory Depth Respiratory Pattern Blood Pressure 128/88 Blood Pressure [Left Arm] Blood Pressure Mean 101 Blood Pressure Mean [Left Arm] Blood Pressure Position Blood Pressure Position [Left Arm] Pulse Oximetry 92 95 Oxygen Delivery Method Sepsis Recent Fever Within 48 Hours Sepsis New/Unexplained Change in Mental Status Sepsis Action Taken by Nursing 01/13/21 12:00 01/13/21 12:10 01/13/21 12:20 Temperature Temperature Source Pulse Rate 60 63 60 Pulse Rate [Apical] Pulse Rate from SpO2 Sensor 62 60 Pulse Rhythm Pulse Strength Respiratory Rate 19 22 15 Respiratory Effort / Characteristics Respiratory Depth Respiratory Pattern Blood Pressure 118/74 Blood Pressure [Left Arm] Blood Pressure Mean 88 Blood Pressure Mean [Left Arm] Blood Pressure Position Blood Pressure Position [Left Arm] Pulse Oximetry 93 92 Oxygen Delivery Method Sepsis Recent Fever Within 48 Hours Sepsis New/Unexplained Change in Mental Status Sepsis Action Taken by Nursing 01/13/21 12:30 01/13/21 12:31 01/13/21 12:40 Temperature Temperature Source Pulse Rate 60 60 65 Pulse Rate [Apical] Pulse Rate from SpO2 Sensor 60 60 59 L Pulse Rhythm Pulse Strength Respiratory Rate 15 15 21 Respiratory Effort / Characteristics Respiratory Depth Respiratory Pattern Blood Pressure 146/71 H Blood Pressure [Left Arm] Blood Pressure Mean 96 Blood Pressure Mean [Left Arm] Blood Pressure Position Blood Pressure Position [Left Arm] Pulse Oximetry 93 93 77 L Oxygen Delivery Method Sepsis Recent Fever Within 48 Hours Sepsis New/Unexplained Change in Mental Status Sepsis Action Taken by Nursing 01/13/21 12:50 01/13/21 13:00 01/13/21 13:09 Temperature Temperature Source Pulse Rate 65 60 Pulse Rate [Apical] 64 Pulse Rate from SpO2 Sensor 66 60 Pulse Rhythm Pulse Strength Respiratory Rate 17 14 18 Respiratory Effort / Characteristics Non-Labored Spontaneous Respiratory Depth Respiratory Pattern Blood Pressure Blood Pressure [Left Arm] Blood Pressure Mean Blood Pressure Mean [Left Arm] Blood Pressure Position Blood Pressure Position [Left Arm] Pulse Oximetry 96 95 95 Oxygen Delivery Method Room Air Sepsis Recent Fever Within 48 Hours Sepsis New/Unexplained Change in Mental Status Sepsis Action Taken by Nursing 01/13/21 13:10 01/13/21 13:20 Temperature Temperature Source Pulse Rate 63 66 Pulse Rate [Apical] Pulse Rate from SpO2 Sensor 64 66 Pulse Rhythm Pulse Strength Respiratory Rate 18 17 Respiratory Effort / Characteristics Respiratory Depth Respiratory Pattern Blood Pressure Blood Pressure [Left Arm] Blood Pressure Mean Blood Pressure Mean [Left Arm] Blood Pressure Position Blood Pressure Position [Left Arm] Pulse Oximetry 98 95 Oxygen Delivery Method Sepsis Recent Fever Within 48 Hours Sepsis New/Unexplained Change in Mental Status Sepsis Action Taken by Nursing Laboratory Data Result diagrams: 01/13/21 10:16 04/01/21 10:16 Lab Results 01/13/21 01/13/21 01/13/21 Range/Units 10:16 10:16 10:16 WBC 5.24 (4.8-10.8) K/uL RBC 4.67 L (4.7-6.1) M/uL Hgb 13.9 L (14.0-18.0) g/dL Hct 41.2 L (42-52) % MCV 88.2 (80-100) fL MCH 29.8 (25-34) pg MCHC 33.7 (32-36) g/dL RDW Std Deviation 45.6 (36.4-46.3) fL RDW Coeff of Bradly 14.1 (11.5-14.5) % Plt Count 216 (130-400) K/uL MPV 9.0 (7.4-10.4) fL Immature Gran % (Auto) 0.2 % Neut % (Auto) 63.8 % Lymph % (Auto) 26.0 % Ida % (Auto) 9.2 % Eos % (Auto) 0.8 % Baso % (Auto) 0.0 % Neut # (Auto) 3.35 (1.4-6.5) K/uL Lymph # (Auto) 1.36 (1.2-3.4) K/uL Ida # (Auto) 0.48 (0.11-0.59) K/uL Eos # (Auto) 0.04 (0-0.5) K/uL Baso # (Auto) 0.00 (0-0.2) K/uL Immature Gran # (Auto) 0.01 (0.00-0.02) K/uL PT 16.1 H (9.0-12.0) Seconds INR 1.6 H (0.9-1.1) APTT 31.2 H (21.0-31.0) Seconds PTT Ratio 1.2 Sodium 136 (136-145) mmol/L Potassium 3.9 (3.5-5.1) mmol/L Chloride 104 (98-107) mmol/L Carbon Dioxide 26 (21-32) mmol/L Anion Gap 6.0 (3-11) BUN 25 H (7-18) mg/dl Creatinine 1.04 (0.6-1.4) mg/dl Est Cr Clr Drug Dosing 65.4 ml/min Est GFR ( Amer) 77.7 Est GFR (Non-Af Amer) 67.0 BUN/Creatinine Ratio 23.6 H (10-20) Glucose 179 H (70-99) mg/dl Calcium 8.9 (8.5-10.1) mg/dl Total Bilirubin 0.5 (0.2-1) mg/dl AST 25 (15-37) U/L ALT 32 (12-78) U/L Alkaline Phosphatase 144 H (45-117) U/L Total Creatine Kinase 123 (39-308) U/L CK-MB (CK-2) 2.3 (0.5-3.6) ng/ml CK/CKMB % Calc 1.9 (0-3.0) Troponin I < 0.015 (0-0.045) ng/ml Total Protein 7.8 (6.4-8.2) gm/dl Albumin 3.6 (3.4-5.0) gm/dl Globulin 4.2 H (2.5-4.0) gm/dl Albumin/Globulin Ratio 0.9 (0.9-2) Lipase 127 (73-393) U/L COVID-19 Eval Order SARS-CoV-2 (PCR) (Negative) Influenza Type A (PCR) (Neg) Influenza Type B (PCR) (Neg) RSV (RT-PCR) (Neg) 01/13/21 01/13/21 Range/Units 11:49 11:49 WBC (4.8-10.8) K/uL RBC (4.7-6.1) M/uL Hgb (14.0-18.0) g/dL Hct (42-52) % MCV (80-100) fL MCH (25-34) pg MCHC (32-36) g/dL RDW Std Deviation (36.4-46.3) fL RDW Coeff of Bradly (11.5-14.5) % Plt Count (130-400) K/uL MPV (7.4-10.4) fL Immature Gran % (Auto) % Neut % (Auto) % Lymph % (Auto) % Ida % (Auto) % Eos % (Auto) % Baso % (Auto) % Neut # (Auto) (1.4-6.5) K/uL Lymph # (Auto) (1.2-3.4) K/uL Ida # (Auto) (0.11-0.59) K/uL Eos # (Auto) (0-0.5) K/uL Baso # (Auto) (0-0.2) K/uL Immature Gran # (Auto) (0.00-0.02) K/uL PT (9.0-12.0) Seconds INR (0.9-1.1) APTT (21.0-31.0) Seconds PTT Ratio Sodium (136-145) mmol/L Potassium (3.5-5.1) mmol/L Chloride (98-107) mmol/L Carbon Dioxide (21-32) mmol/L Anion Gap (3-11) BUN (7-18) mg/dl Creatinine (0.6-1.4) mg/dl Est Cr Clr Drug Dosing ml/min Est GFR ( Amer) Est GFR (Non-Af Amer) BUN/Creatinine Ratio (10-20) Glucose (70-99) mg/dl Calcium (8.5-10.1) mg/dl Total Bilirubin (0.2-1) mg/dl AST (15-37) U/L ALT (12-78) U/L Alkaline Phosphatase (45-117) U/L Total Creatine Kinase (39-308) U/L CK-MB (CK-2) (0.5-3.6) ng/ml CK/CKMB % Calc (0-3.0) Troponin I (0-0.045) ng/ml Total Protein (6.4-8.2) gm/dl Albumin (3.4-5.0) gm/dl Globulin (2.5-4.0) gm/dl Albumin/Globulin Ratio (0.9-2) Lipase (73-393) U/L COVID-19 Eval Order CovFluRsv at [facility] SARS-CoV-2 (PCR) NEGATIVE (Negative) Influenza Type A (PCR) Negative (Neg) Influenza Type B (PCR) Negative (Neg) RSV (RT-PCR) Negative (Neg) Administered Medications Amiodarone HCl (Amiodarone 200 Mg Tab) 200 mg PO BIDM KENDRICK Stop: 02/12/21 16:59 Last Admin: 01/13/21 16:45 Dose: 200 mg Documented by: [id number] Heparin Sodium/Dextrose (Heparin Sodium/Dextrose) 25,000 units in 500 mls @ 30 mls/hr IV .[id number] KENDRICK; Protocol Stop: 02/12/21 13:14 Last Admin: 01/13/21 14:49 Dose: 1,500 units/hr, 30 mls/hr Documented by: [id number] Cosigned by: [id number] Sodium Chloride (Nss) 500 mls @ 80 mls/hr IV .[id number] ONE Stop: 01/13/21 22:00 Last Admin: 01/13/21 16:41 Dose: 80 mls/hr Documented by: [id number] Insulin Aspart (Insulin Aspart 100 Units/Ml 3 Ml Pen) 0 units SC ACHS [facility] Stop: 02/12/21 16:29 Last Admin: 01/13/21 16:45 Dose: 5 units Documented by: [id number] Cosigned by: [id number] Discontinued Medications Heparin Sodium/Dextrose (Heparin Iv Standard *No* Bolus) 1 ea IV ONE ONE; Protocol Stop: 01/13/21 13:14 Last Admin: 01/13/21 16:07 Dose: 1 ea Documented by: [id number] Ioversol (Optiray 320 125ml) 117 ml IV ONCE ONE Stop: 01/13/21 16:18 Last Admin: 01/13/21 16:17 Dose: 117 ml Documented by: [id number] Levalbuterol HCl (Levalbuterol Hcl 1.25 Mg/3 Ml Neb) 1.25 mg NEB NOW STA Stop: 01/13/21 12:52 Last Admin: 01/13/21 13:08 Dose: 1.25 mg Documented by: [id number] Warfarin Sodium (Warfarin Sod 10 Mg Tab) 10 mg PO ONE ONE Stop: 01/13/21 16:01 Last Admin: 01/13/21 16:42 Dose: 10 mg Documented by: [id number] Imaging Data Radiologist's Impression: Chest X-Ray 01/13/21 11:29 XR chest 1V portable HISTORY: 80 years-old Male Chest Pain acute atypical chest pain COMPARISON: Chest radiograph and CTA chest 01/08/2021 TECHNIQUE: Portable AP view of the chest FINDINGS: Unchanged cardiac silhouette with prior median sternotomy. Left subclavian pacer. Asymmetric right hilar prominence. Bilateral pulmonary nodules are better characterized on comparison chest CT. Mildly improved aeration of the lung bases with persistent interstitial coarsening. No pneumothorax, large pleural effusion or overt pulmonary edema. Bones of the chest appear grossly intact. IMPRESSION: 1. Mildly improved aeration of the lung bases with mild persistent interstitial opacities. 2. Right hilar prominence corresponding to pathologic adenopathy is redemonstrated along with bilateral pulmonary nodules. ACT 112: Negative or not required by law. The above report was generated using voice recognition software. It may contain grammatical, syntax or spelling errors. Electronically signed by: Sanjiv Hooks M.D. 01/13/2021 11:53 AM Venous Doppler Study 01/13/21 13:17 BILATERAL LOWER EXTREMITY VENOUS DOPPLER HISTORY: Lower extremity swelling. Pt c/o Rt sided chest pain COMPARISON STUDY: None. FINDINGS: There is normal compressibility, flow, and augmentation within the left lower extremity deep venous system. The right common femoral and right superficial femoral veins are patent. There is nonocclusive thrombus within the right popliteal vein, posterior tibial veins, and peroneal veins. IMPRESSION: 1. Nonocclusive DVT within the right lower extremity as described above. 2. No DVT within the left lower extremity. ACT 112: Negative or not required by law. Electronically signed by: Lamin Lal M.D. 01/13/2021 3:03 PM Discharge Plan Visit Data Chief Complaint: Chest Pain Stated Complaint: CHEST PAIN INTO BACK, HX AFIB ED Provider: Shiva Bell Discharge Problem: Chest pain, Hx of CABG, Subtherapeutic international normalized ratio (INR) Patient Disposition: Admitted As Inpatient Discharge Instructions Interventions: ED Discharge Assessment Last Done: 01/13/21 15:25 Discharge Problem: Chest pain Qualifiers: Chest pain type: unspecified Qualified Code(s): R07.9 - Chest pain, unspecified
--- NOTE | 2021-01-13 15:05 | Ultrasound Report ---
BILATERAL LOWER EXTREMITY VENOUS DOPPLER HISTORY: Lower extremity swelling. Pt c/o Rt sided chest pain COMPARISON STUDY: None. FINDINGS: There is normal compressibility, flow, and augmentation within the left lower extremity daisha p venous system. The right common femoral and right superficial femoral veins are patent. There is no nocclusive thrombus within the right popliteal vein, posterior tibial veins, and peroneal veins. IMPRESSION: 1. Nonocclusive DVT within the right lower extremity as described above. 2. No DVT within the left lower extremity. ACT 112: Negative or not required by law. Electronically signed by: Lamin Lal M.D. 01/13/2021 3:03 PM
[2021-01-13] MEDS ORDERED: ONDANSETRON INJ 2 MG/ML 2 ML VIAL IV PRN (15:12)
[2021-01-13] MEDS ORDERED: ACETAMINOPHEN 325 MG TAB PO PRN (15:12)
[2021-01-13] MEDS ORDERED: POLYETHYLENE (MIRALAX) 17 GM PACK PO PRN (15:12)
[2021-01-13] MEDS ORDERED: NITROGLYCERIN SL 0.4 MG/TAB TAB SL PRN (15:12)
[2021-01-13] MEDS ORDERED: SODIUM CHLORIDE 0.9% 500 ML IV ONE (15:46)
[2021-01-13] MEDS ORDERED: WARFARIN SOD 10 MG TAB PO ONE (16:00)
[2021-01-13] MEDS ORDERED: OPTIRAY 320 125ml IV ONE (16:17)
--- NOTE | 2021-01-13 16:21 | XRay Report ---
XR ribs RT min 2V CLINICAL HISTORY: Evaluate for metastatic lesions. Right sided chest pain. Prostate cancer. COMPARISON: Chest CT January 08, 2021. Chest radiograph performed earlier today. Bone scan January 04. FINDINGS: Left subclavian pacer leads, median sternotomy wires and mediastinal surgical clips are pa rtially imaged. Right hilar and mediastinal lymphadenopathy is noted. This is better depicted on ches t CT January 08, 2021. Multiple right lung nodules are also better demonstrated on that exam. No acute fracture or osseous lesion is identified within the right ribs by radiography. There are cholecystect ravi clips. IMPRESSION: 1. No acute fracture or osseous lesion is identified within the right ribs by radiography. 2. Mediastinal and hilar lymphadenopathy and numerous right lung pulmonary nodules suggestive of meta static disease, better depicted on chest CT January 08, 2021. ACT 112: Negative or not required by law. Electronically signed by: Lazaro Lin M.D. 01/13/2021 4:20 PM
--- NOTE | 2021-01-13 16:37 | CT Scan Report ---
CT angio chest PE protocol CT DOSE: 671.68 mGycm HISTORY: 80 years-old Male with PE. Acute chest pain with shortness of breath TECHNIQUE: Multiple CTA images of the chest were obtained after the intravenous administration of 117 ml Optiray 320. Coronal and sagittal MIPS were obtained from the axial data set and were submitted for review. All measurements were obtained according to NASCET criteria. A dose lowering technique w as utilized adhering to the principles of ALARA. COMPARISON: Chest radiograph of same day, CTA chest 01/08/2021 FINDINGS: CTA: Cardiomegaly with prior median sternotomy and CABG. Left subclavian pacer. Thickening of the left evelyn tricular apex with unchanged 1.5 cm saccular outpouching suggestive of aneurysm, image 91. Extensive [place] coronary artery calcifications. No thoracic aortic aneurysm. Unremarkable pulmonary arteries w ithout pulmonary emboli. Narrowing of the right lower and middle lobe pulmonary artery branches secon lily to [place] from pathologic right hilar adenopathy as below. CT CHEST: Heterogeneous thyroid. There are numerous pathologic mediastinal and hilar lymph nodes redemonstrated . Dominant right hilar lymph node is again noted measures 3.0 cm. Dominant right paratracheal lymph n ode measures 3.4 cm. No pneumothorax or pleural effusion. Numerous bilateral pulmonary nodules, most of which are peripher ally oriented numbering over 20 in total number. 2.6 cm nodule of the right middle lobe, image 86. No overt pulmonary edema or airspace consolidation typical for pneumonia. Bibasilar atelectasis. Centra l airways are patent. Moderate narrowing of the right middle and lower lobe bronchi secondary to path ologic right hilar adenopathy. No pneumoperitoneum. Ill-defined hypodense focus of the left hepatic lobe measures approximately 1.5 cm. Suggested adrenal hyperplasia. Mild wall thickening of the distal esophagus with trace periesopha geal fluid. Gynecomastia. Unremarkable soft tissues. No suspicious bone lesion or acute fracture. Par tially dilated sternotomy site with peripheral cortication suggestive of pseudoarticulation. IMPRESSION: 1. No pulmonary emboli. 2. Pulmonary metastasis with metastatic medial and hilar adenopathy redemonstrated. Again noted is na rrowing of the right middle and lower lobar bronchi and adjacent pulmonary artery secondary to pathol ogic hilar adenopathy. 3. Possible hepatic metastasis. 4. Unchanged mild distal esophageal wall thickening. 5. Additional findings as above. ACT 112: Negative or not required by law. The above report was generated using voice recognition software. It may contain grammatical, syntax o r spelling errors. Electronically signed by: Sanjiv Hooks M.D. 01/13/2021 4:36 PM
[2021-01-13] MEDS: INSULIN ASPART 100 UNITS/ML 3 ML PEN SC SCH ×2 (16:45→21:29)
[2021-01-13] MEDS: AMIODARONE 200 MG TAB PO SCH (16:45)
--- NOTE | 2021-01-13 17:06 | Electrocardiogram Report ---
Test Reason : Blood Pressure : / mmHG Vent. Rate : 072 BPM Atrial Rate : 073 BPM P-R Int : 000 ms QRS Dur : 158 ms QT Int : 464 ms P-R-T Axes : 000 133 064 degrees QTc Int : 508 ms Atrial-paced rhythm Right bundle branch block Left posterior fascicular block Bifascicular block Abnormal ECG When compared with ECG of 11-JAN-2021 10:10, Left posterior fascicular block is now Present Criteria for Inferior infarct are no longer Present T wave inversion no longer evident in Anterior leads Confirmed by True Stevens ([id number]) on 01/13/2021 5:06:07 PM Referred By: Confirmed By:Lloyd Stevens
[2021-01-13] MEDS: ATORVASTATIN 20 MG TAB PO SCH (21:08)
[2021-01-13] MEDS: METOPROLOL SUCC 25MG EXT REL TAB PO SCH (21:08)
[2021-01-13] MEDS: PANTOprazole 40 MG TAB PO SCH (21:08)
[2021-01-13] MEDS: POTASSIUM CHLORIDE 10 MEQ TABCR PO SCH (21:08)
[2021-01-13 21:23] LABS: Partial Thromboplastin Ratio 3.3
[2021-01-13 21:25] LABS: Partial Thromboplastin Time 86.3 Seconds (21.0-31.0)
[2021-01-14 05:08] LABS: Hematocrit (blood only) 37.1 % (42-52); Hemoglobin 12.7 g/dL (14.0-18.0); Mean Corpuscular Hemoglobin 30.2 pg (25-34); Mean Corpuscular Hgb Conc 34.2 g/dL (32-36); Mean Corpuscular Volume 88.1 fL (80-100); Mean Platelet Volume 8.8 fL (7.4-10.4); Platelet Count 187 K/uL (130-400); RDW Coefficient of Variation 14.1 % (11.5-14.5); RDW Standard Deviation 45.5 fL (36.4-46.3); Red Blood Count 4.21 M/uL (4.7-6.1); White Blood Count 4.25 K/uL (4.8-10.8)
[2021-01-14 05:24] LABS: Calcium 8.7 mg/dl (8.5-10.1); Creatinine Clr Calc Pharmacy 65.6 ml/min; Est GFR (African American) 79.5; Est GFR (Non-African American) 68.6; Magnesium 2.3 mg/dl (1.8-2.4)
[2021-01-14 05:28] LABS: Partial Thromboplastin Ratio 4.6; Prothrombin Time 18.9 Seconds (9.0-12.0)
[2021-01-14 05:30] LABS: Partial Thromboplastin Time 120.7 Seconds (21.0-31.0)
[2021-01-14] MEDS: METOPROLOL SUCC 25MG EXT REL TAB PO SCH ×2 (08:09→21:49)
[2021-01-14] MEDS: AMIODARONE 200 MG TAB PO SCH (08:09)
[2021-01-14] MEDS: ASPIRIN 81 MG CHEW PO SCH (08:09)
[2021-01-14] MEDS: CHOLECALCIFEROL 1,000 UNITS 25 MCG TAB PO SCH (08:09)
[2021-01-14] MEDS: PANTOprazole 40 MG TAB PO SCH ×2 (08:09→21:49)
[2021-01-14] MEDS: FUROSEMIDE 40 MG TAB PO SCH (08:09)
[2021-01-14] MEDS: lisinopril 2.5 MG TAB PO SCH (08:10)
[2021-01-14] MEDS: POTASSIUM CHLORIDE 10 MEQ TABCR PO SCH ×2 (08:10→21:49)
[2021-01-14] MEDS: INSULIN ASPART 100 UNITS/ML 3 ML PEN SC SCH ×4 (08:12→23:08)
--- NOTE | 2021-01-14 11:33 | Cardiology Consultation ---
Date of Consultation January 14, 2021 Assessment & Plan (1) Atypical chest pain: This is noncardiac chest pain and I do not believe any additional testing is indicated. (2) Hx of CABG: (3) Ischemic cardiomyopathy: (4) Pacemaker: (5) Prostate CA: The patient has extensive metastatic disease in the lungs as well as liver. It may be contributing to his poor reticulocyte chest pain which he presented with. (6) PAF (paroxysmal atrial fibrillation): Continue amiodarone. His INR today is 2.0. Currently he is on heparin and you may want to continue the infusion for another day until his INR is a little bit more elevated prior to stopping heparin. He does have evidence of a partial DVT in his lower extremities and with his history of cancer he is at risk so I would be certain the warfarin is therapeutic before stopping the heparin and allowing him to go home. History of Present Illness Attending Physician: Lizbeth Fuentes MD History of Present Illness This is a 80-year-old male patient with the past medical history as outlined below. He recently was admitted to the hospital following an episode of atrial fibrillation with RVR successfully treated medically and converting spontaneously to normal sinus rhythm. The patient was started on amiodarone with success and was discharged on this medication. He was already on anticoagulation with Coumadin which was continued. Unfortunately the patient returned to the hospital with right upper chest and shoulder discomfort. He remains in normal sinus rhythm. His cardiac markers have been negative. He also had a repeat CT scan of the chest which failed to show pulmonary emboli. He did have evidence of a partial DVT of his lower extremities. His INR was subtherapeutic and he was started on IV heparin while his Coumadin was increased. He has no ongoing complaints today. It should be noted that this patient has prostate cancer which is metastatic to lung and liver. His CT of the chest shows extensive lymphadenopathy. Past medical history: 1.ASCVD 1.Status post PCI with a BMS to the mid LAD on 05/16/2016. 2.May 26, 2016 diagnostic cardiac catheterization at [facility], Dr. 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 Also, far beyond the stent, there was visible healed dissection flap, Type B, non- obstructive. 3.Status post CABG x 1 with a ABRAMS to LAD for persistent angina, May 2016. 2.Ischemic cardiomyopathy, EF 40-44% 3.Aortic valve stenosis 4.Past paroxysmal atrial fibrillation. 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 8.Hypertension. 9.Hyperlipidemia. Poor statin tolerance 10.Type II diabetes mellitus 11.Advanced prostate cancer. Diagnosed in 2018. Completed 40 radiation treatm ents on May 14, 2018. Casodex discontinued due to breast enlargement. 12.Iron deficiency anemia 13.COVID in Sep 2020 requiring hospitalization. Allergies Allergy/AdvReac Type Severity Reaction Status Date / Time No Known Allergies Allergy Verified 01/13/21 11:27 Home Medications Medication Instructions Recorded Confirmed Type Glucosamine Chondroitin 1 cap PO BID 02/21/19 01/13/21 History aspirin 81 mg PO QAM 02/21/19 01/13/21 History glipizide 10 mg PO BID 02/21/19 01/13/21 History lisinopril 2.5 mg PO QAM 02/21/19 01/13/21 History metformin 500 mg PO QAM 02/21/19 01/13/21 History metoprolol succinate 25 mg PO BID 02/21/19 01/13/21 History nitroglycerin [Nitrostat] 0.4 mg SUBLINGUAL DIRECTED PRN 02/21/19 01/13/21 History omeprazole 20 mg PO BID 02/21/19 01/13/21 History potassium chloride [Klor-Con M10] 10 meq PO BID 02/21/19 01/13/21 History fluocinonide 1 applic TOPICAL DAILY PRN 09/20/20 01/13/21 History ketoconazole 1 applic TOPICAL DIRECTED 09/20/20 01/13/21 History pioglitazone 45 mg PO QAM 09/20/20 01/13/21 History acetaminophen [Tylenol] 975 mg PO QID PRN 01/08/21 01/13/21 History ascorbic acid (vitamin C) 0 mg PO QAM 01/08/21 01/13/21 History cholecalciferol (vitamin D3) 0 mcg PO DAILY 01/08/21 01/13/21 History furosemide [Lasix] 40 mg PO DAILY 01/09/21 01/13/21 History warfarin 5 mg PO UD 01/09/21 01/13/21 History amiodarone 200 mg PO BIDM #60 tab 01/11/21 01/13/21 Rx atorvastatin 20 mg PO HS #30 tab 01/11/21 01/13/21 Rx Patient History Medical History Asthma DM2 (diabetes mellitus, type 2) DVT (deep venous thrombosis) "RLE" Dyspnea on minimal exertion History of left heart catheterization (LHC) "60% stenosis mid left anterior descending " HLD (hyperlipidemia) Hyperlipidemia Hypertension Hypoxia AL on CPAP Paroxysmal atrial fibrillation Prostate cancer (10/22/17) Systolic ejection murmur Tachy-shanita syndrome Surgical History H/O esophagogastroduodenoscopy Hx of total knee arthroplasty S/P CABG x 1 S/P cholecystectomy S/P hip replacement S/P knee replacement Family History Other No pertinent family history Social History Smoking Status: Former smoker Cigarettes Per Day: 40; Second Hand Exposure: No; Do You Dip or Chew Tobacco: No; Tobacco Cessation Education Requested by Patient: No Hx Alcohol Use: No Hx Substance Use: No Preferred Language: Serbian Communication Ability: Effective Visual Impairment: No Limitations Hearing Ability: Normal District Loss Prevention Manager Required: No Beliefs That Will Affect Care: None marital status: Current Living Situation: Spouse Current Living Situation Comment: house Other Information That Helps Us Care for You: No Feels Safe at Home: Yes Safety Concerns: Feels Safe At This Time Assistive Devices: Cane Assistive Devices Comment: Uses only for long distances Review of Systems Review of Systems: All systems reviewed & are unremarkable except as noted in HPI & below Nothing additional to add. Physical Exam Physical Exam: General: no acute distress and stated age Head: normocephalic, no masses, lesions, tenderness or abnormalities Eyes: conjunctiva are pink and non-injected, sclera clear Neck: supple, no adenopathy, no bruits, normal jugular venous pulse, no hepatojugular reflux Chest: normal shape and normal respiratory effort Lungs: clear to auscultation and percussion Cardiac Exam: - regular rate & rhythm, no murmurs gallops or rubs - normal S1, normal S2 Pulses: 2(+) throughout Abdomen: abdomen soft, non-tender, no abnormal masses and no hepatosplenomegaly Musculoskeletal: no gait disturbance, no joint inflammation, no deforming arthritis Extremities: no edema and no cyanosis Neuro: grossly normal exam Results & Data ([facility]) Vital Signs (Past 12 Hours) Vital Signs Temp Pulse Resp BP Pulse Ox 01/14/21 07:39 36.2 C L 62 14 119/74 95 01/14/21 03:49 36.5 C 61 16 100/68 92 Laboratory Results Laboratory Results - last 24 hr 01/13/21 01/13/21 01/13/21 10:16 10:16 10:16 WBC 5.24 RBC 4.67 L Hgb 13.9 L Hct 41.2 L MCV 88.2 MCH 29.8 MCHC 33.7 RDW Std Deviation 45.6 RDW Coeff of Bradly 14.1 Plt Count 216 MPV 9.0 Immature Gran % (Auto) 0.2 Neut % (Auto) 63.8 Lymph % (Auto) 26.0 Storey % (Auto) 9.2 Eos % (Auto) 0.8 Baso % (Auto) 0.0 Neut # (Auto) 3.35 Lymph # (Auto) 1.36 Storey # (Auto) 0.48 Eos # (Auto) 0.04 Baso # (Auto) 0.00 Immature Gran # (Auto) 0.01 PT 16.1 H INR 1.6 H APTT 31.2 H PTT Ratio 1.2 Sodium 136 Potassium 3.9 Chloride 104 Carbon Dioxide 26 Anion Gap 6.0 BUN 25 H Creatinine 1.04 Est Cr Clr Drug Dosing 65.4 Est GFR ( Amer) 77.7 Est GFR (Non-Af Amer) 67.0 BUN/Creatinine Ratio 23.6 H Glucose 179 H POC Glucose Calcium 8.9 Magnesium Total Bilirubin 0.5 AST 25 ALT 32 Alkaline Phosphatase 144 H Total Creatine Kinase 123 CK-MB (CK-2) 2.3 CK/CKMB % Calc 1.9 Troponin I < 0.015 Total Protein 7.8 Albumin 3.6 Globulin 4.2 H Albumin/Globulin Ratio 0.9 Lipase 127 COVID-19 Eval Order SARS-CoV-2 (PCR) Influenza Type A (PCR) Influenza Type B (PCR) RSV (RT-PCR) 01/13/21 01/13/21 01/13/21 11:49 11:49 16:40 WBC RBC Hgb Hct MCV MCH MCHC RDW Std Deviation RDW Coeff of Bradly Plt Count MPV Immature Gran % (Auto) Neut % (Auto) Lymph % (Auto) Storey % (Auto) Eos % (Auto) Baso % (Auto) Neut # (Auto) Lymph # (Auto) Storey # (Auto) Eos # (Auto) Baso # (Auto) Immature Gran # (Auto) PT INR APTT PTT Ratio Sodium Potassium Chloride Carbon Dioxide Anion Gap BUN Creatinine Est Cr Clr Drug Dosing Est GFR ( Amer) Est GFR (Non-Af Amer) BUN/Creatinine Ratio Glucose POC Glucose 123 H Calcium Magnesium Total Bilirubin AST ALT Alkaline Phosphatase Total Creatine Kinase CK-MB (CK-2) CK/CKMB % Calc Troponin I Total Protein Albumin Globulin Albumin/Globulin Ratio Lipase COVID-19 Eval Order CovFluRsv at [facility] SARS-CoV-2 (PCR) NEGATIVE Influenza Type A (PCR) Negative Influenza Type B (PCR) Negative RSV (RT-PCR) Negative 01/13/21 01/13/21 01/13/21 17:20 20:51 20:51 WBC RBC Hgb Hct MCV MCH MCHC RDW Std Deviation RDW Coeff of Bradly Plt Count MPV Immature Gran % (Auto) Neut % (Auto) Lymph % (Auto) Storey % (Auto) Eos % (Auto) Baso % (Auto) Neut # (Auto) Lymph # (Auto) Storey # (Auto) Eos # (Auto) Baso # (Auto) Immature Gran # (Auto) PT INR APTT 86.3 H* PTT Ratio 3.3 Sodium Potassium Chloride Carbon Dioxide Anion Gap BUN Creatinine Est Cr Clr Drug Dosing Est GFR ( Amer) Est GFR (Non-Af Amer) BUN/Creatinine Ratio Glucose POC Glucose Calcium Magnesium Total Bilirubin AST ALT Alkaline Phosphatase Total Creatine Kinase CK-MB (CK-2) CK/CKMB % Calc Troponin I < 0.015 < 0.015 Total Protein Albumin Globulin Albumin/Globulin Ratio Lipase COVID-19 Eval Order SARS-CoV-2 (PCR) Influenza Type A (PCR) Influenza Type B (PCR) RSV (RT-PCR) 01/13/21 01/14/21 01/14/21 20:58 04:49 04:49 WBC 4.25 L RBC 4.21 L Hgb 12.7 L Hct 37.1 L MCV 88.1 MCH 30.2 MCHC 34.2 RDW Std Deviation 45.5 RDW Coeff of Bradly 14.1 Plt Count 187 MPV 8.8 Immature Gran % (Auto) Neut % (Auto) Lymph % (Auto) Storey % (Auto) Eos % (Auto) Baso % (Auto) Neut # (Auto) Lymph # (Auto) Storey # (Auto) Eos # (Auto) Baso # (Auto) Immature Gran # (Auto) PT 18.9 H INR 2.0 H APTT 120.7 H* PTT Ratio 4.6 Sodium Potassium Chloride Carbon Dioxide Anion Gap BUN Creatinine Est Cr Clr Drug Dosing Est GFR ( Amer) Est GFR (Non-Af Amer) BUN/Creatinine Ratio Glucose POC Glucose 131 H Calcium Magnesium Total Bilirubin AST ALT Alkaline Phosphatase Total Creatine Kinase CK-MB (CK-2) CK/CKMB % Calc Troponin I Total Protein Albumin Globulin Albumin/Globulin Ratio Lipase COVID-19 Eval Order SARS-CoV-2 (PCR) Influenza Type A (PCR) Influenza Type B (PCR) RSV (RT-PCR) 01/14/21 01/14/21 01/14/21 04:49 07:28 11:00 WBC RBC Hgb Hct MCV MCH MCHC RDW Std Deviation RDW Coeff of Bradly Plt Count MPV Immature Gran % (Auto) Neut % (Auto) Lymph % (Auto) Storey % (Auto) Eos % (Auto) Baso % (Auto) Neut # (Auto) Lymph # (Auto) Storey # (Auto) Eos # (Auto) Baso # (Auto) Immature Gran # (Auto) PT INR APTT PTT Ratio Sodium 137 Potassium 4.0 Chloride 104 Carbon Dioxide 30 Anion Gap 3.0 BUN 21 H Creatinine 1.02 Est Cr Clr Drug Dosing 65.6 Est GFR ( Amer) 79.5 Est GFR (Non-Af Amer) 68.6 BUN/Creatinine Ratio 21.0 H Glucose 147 H POC Glucose 146 H 142 H Calcium 8.7 Magnesium 2.3 Total Bilirubin AST ALT Alkaline Phosphatase Total Creatine Kinase CK-MB (CK-2) CK/CKMB % Calc Troponin I Total Protein Albumin Globulin Albumin/Globulin Ratio Lipase COVID-19 Eval Order SARS-CoV-2 (PCR) Influenza Type A (PCR) Influenza Type B (PCR) RSV (RT-PCR) Medications Administered Current Inpatient Medications Acetaminophen (Acetaminophen 325 Mg Tab) 650 mg PO Q4H PRN PRN Reason: Pain or Fever Stop: 02/12/21 15:11 Amiodarone HCl (Amiodarone 200 Mg Tab) 200 mg PO BIDM [facility] Stop: 02/12/21 16:59 Last Admin: 01/14/21 08:09 Dose: 200 mg Documented by: Aspirin (Aspirin 81 Mg Chew) 81 mg PO QAM [facility] Stop: 02/13/21 08:59 Last Admin: 01/14/21 08:09 Dose: 81 mg Documented by: Atorvastatin Calcium (Atorvastatin 20 Mg Tab) 20 mg PO HS [facility] Stop: 02/12/21 20:59 Last Admin: 01/13/21 21:08 Dose: 20 mg Documented by: Dextrose (Dextrose 50% 50 Ml Syringe) 25 - 50 ml IV UD PRN; Protocol PRN Reason: Hypoglycemia Protocol Stop: 02/12/21 13:25 Furosemide (Furosemide 40 Mg Tab) 40 mg PO DAILY [facility] Stop: 02/13/21 08:59 Last Admin: 01/14/21 08:09 Dose: 40 mg Documented by: Glucagon (Glucagon For Inj 1 Mg Vial) 1 mg SQ UD PRN; Protocol PRN Reason: Hypoglycemia Protocol Stop: 02/12/21 13:25 Glucose (Glucose 10 Tabs/Tube) 4 - 8 tabs PO UD PRN; Protocol PRN Reason: Hypoglycemia Protocol Stop: 02/12/21 13:25 Glucose (Glucose 40% Gel 15 Gm Tube) 15 - 30 gm PO UD PRN; Protocol PRN Reason: Hypoglycemia Protocol Stop: 02/12/21 13:25 Heparin Sodium/Dextrose (Heparin Sodium/Dextrose) 25,000 units in 500 mls @ 0 mls/hr IV .Q0M [facility]; Protocol Stop: 02/12/21 13:14 Last Titration: 01/14/21 09:20 Dose: 1,000 units/hr, 20 mls/hr Documented by: Insulin Aspart (Insulin Aspart 100 Units/Ml 3 Ml Pen) 0 units SC ACHS [facility] Stop: 02/12/21 16:29 Last Admin: 01/14/21 08:12 Dose: 6 units Documented by: Lisinopril (Lisinopril 2.5 Mg Tab) 2.5 mg PO QAM [facility] Stop: 02/13/21 08:59 Last Admin: 01/14/21 08:10 Dose: 2.5 mg Documented by: Metoprolol Succinate (Metoprolol Succ 25mg Ext Rel Tab) 25 mg PO BID [facility] Stop: 02/12/21 20:59 Last Admin: 01/14/21 08:09 Dose: 25 mg Documented by: Miscellaneous (Carbohydrates For Hypoglycemia ) 15 - 30 gm PO UD PRN PRN Reason: Hypoglycemia Protocol Stop: 02/12/21 13:25 Nitroglycerin (Nitroglycerin Sl 0.4 Mg/Tab Tab) 0.4 mg SL PRN PRN PRN Reason: Chest Pain Stop: 02/12/21 15:11 Ondansetron HCl (Ondansetron Inj 2 Mg/Ml 2 Ml Vial) 4 mg IV Q6H PRN PRN Reason: Nausea Stop: 02/12/21 15:11 Pantoprazole Sodium (Pantoprazole 40 Mg Tab) 40 mg PO BID [facility] Stop: 02/12/21 20:59 Last Admin: 01/14/21 08:09 Dose: 40 mg Documented by: Polyethylene Glycol (Polyethylene (Miralax) 17 Gm Pack) 17 gm PO DAILY PRN PRN Reason: Constipation Stop: 02/12/21 15:11 Potassium Chloride (Potassium Chloride 10 Meq Tabcr) 10 meq PO BID [facility] Stop: 02/12/21 20:59 Last Admin: 01/14/21 08:10 Dose: 10 meq Documented by: Vitamin D (Cholecalciferol 1,000 Units 25 Mcg Tab) 1,000 units PO DAILY [facility] Stop: 02/13/21 08:59 Last Admin: 01/14/21 08:09 Dose: 1,000 units Documented by:
[2021-01-14] MEDS: HEPARIN SODIUM/DEXTROSE 25,000 UNITS/500 ML BAG IV SCH (14:01)
--- NOTE | 2021-01-14 15:51 | Hospitalist Progress Note ---
Date of Service January 14, 2021 Assessment & Plan (1) Chest pain: Atypical Chest Pain Likely Pleuritic/musculoskeletal H/O CAD S/P CABG R/O ACS Serial troponins and EKG are unremarkable Continue Aspirin, statin, Metoprolol Appreciate cardiology consult and recommendation Subtherapeutic INR CTA did not show any pulmonary embolism Noted to have nonocclusive DVT within the right lower extremity Given subtherapeutic INR, will start on IV heparin and DC once INR is therapeutic INR is 2.0 today We will continue heparin intravenously for now and continue Coumadin Atrial fibrillation H/O SSS s/p Pacemaker Continue amiodarone, metoprolol cardiology consulted, input appreciated On Coumadin for anticoagulation Chronic systolic heart failure H/O Ischemic cardiomyopathy Euvolemic currently Continue home diuretics Monitor volume status H/O PVD Continue statin, aspirin Hyperlipidemia on statin Metastatic prostate cancer S/P Radiation, Lupron Progressive disease on recent CT Follow up with Oncology as outpatient Awaiting insurance coverage approval for Enzalutamide. AL on CPAP H/O PE/DVT On Coumadin DM II HbA1C:6.3 Hold PO meds Continue Insulin Monitor BGs DVT Px: Coumadin, IV Heparin Code Status Full code Disposition Expected discharge home when medically stable Definitely wants to go home tomorrow Admission and Anticipated Discharge Date Admission Date: January 13, 2021 Subjective 01/14/2021 The patient was seen and examined in telemetry unit He was admitted with right-sided chest pain which was noted to be with deep inspiration Denies any other associated symptoms Review of Systems Review of Systems: All systems reviewed and are unremarkable except as noted below Respiratory: + pain on inspiration (Right-sided lower chest pain at the back); no cough and no dyspnea Cardiovascular: + chest pain (Right-sided as above); no chest pain with activity, no dyspnea, no dyspnea at rest, no dyspnea on exertion and no orthopnea Physical Exam Physical Exam: Lying in bed comfortably Constitutional: well developed, well nourished and + obese; not ill appearing Eyes: PERRL, conjunctivae normal, anicteric sclerae ENMT: external ear and nose normal, oropharynx normal Neck: trachea midline, no thyromegaly Respiratory: no respiratory distress Auscultation: lungs clear to auscult ation bilaterally Cardiovascular: Rate/Rhythm: regular rate and regular rhythm Heart Sounds: + murmur (2/6 over precordium and aortic area) Gastrointestinal (Abdomen): Inspection/Auscultation: normal bowel sounds; abdomen not distended Percussion/Palpation: abdomen soft; abdomen nontender Musculoskeletal: No acute arthritis in any joint Neurologic: Alert, awake and oriented x3. No focal sensory and motor deficit appreciated Psychiatric: A+Ox3, euthymic affect Lymphatic: no cervical or axillary lymphadenopathy Results & Data Results & Data ([facility]) Vital Signs (Past 12 Hours) Vital Signs Temp Pulse Resp BP Pulse Ox 01/14/21 07:39 36.2 C L 62 14 119/74 95 01/14/21 03:49 36.5 C 61 16 100/68 92
[2021-01-14] MEDS ORDERED: WARFARIN SOD 7.5 MG TAB PO STA (15:52)
--- NOTE | 2021-01-14 16:10 | Electrocardiogram Report ---
Test Reason : Blood Pressure : / mmHG Vent. Rate : 062 BPM Atrial Rate : 062 BPM P-R Int : 270 ms QRS Dur : 150 ms QT Int : 514 ms P-R-T Axes : 078 087 087 degrees QTc Int : 521 ms Atrial-paced rhythm with prolonged AV conduction Right bundle branch block Inferior infarct , age undetermined Abnormal ECG When compared with ECG of 13-JAN-2021 09:46, Left posterior fascicular block is no longer Present Inferior infarct is now Present Nonspecific T wave abnormality now evident in Lateral leads Confirmed by John Benton ([id number]) on 01/14/2021 4:09:34 PM Referred By: REFERRED SELF Confirmed By:John Benton
[2021-01-14 16:52] LABS: Partial Thromboplastin Time 51.5 Seconds (21.0-31.0)
[2021-01-14] MEDS: ATORVASTATIN 20 MG TAB PO SCH (21:49)
[2021-01-15 06:56] LABS: Basophils # (auto) 0.01 K/uL (0-0.2); Basophils % (auto) 0.3 %; Eosinophils # (auto) 0.07 K/uL (0-0.5); Hematocrit (blood only) 37.6 % (42-52); Hemoglobin 13.2 g/dL (14.0-18.0); Lymphocytes # (auto) 1.26 K/uL (1.2-3.4); Lymphocytes % (auto) 35.5 %; Mean Corpuscular Hemoglobin 30.6 pg (25-34); Mean Corpuscular Hgb Conc 35.1 g/dL (32-36); Mean Platelet Volume 8.5 fL (7.4-10.4); Monocytes # (auto) 0.34 K/uL (0.11-0.59); Monocytes % (auto) 9.6 %; Neutrophils # (auto) 1.87 K/uL (1.4-6.5); Neutrophils % (auto) 52.6 %; Platelet Count 169 K/uL (130-400); RDW Standard Deviation 44.7 fL (36.4-46.3); Red Blood Count 4.32 M/uL (4.7-6.1); White Blood Count 3.55 K/uL (4.8-10.8)
[2021-01-15 07:09] LABS: INR 2.3 (0.9-1.1); Prothrombin Time 21.7 Seconds (9.0-12.0)
[2021-01-15 07:29] LABS: BUN Creatinine Ratio 17.5 (10-20); Calcium 8.8 mg/dl (8.5-10.1); Creatinine Clr Calc Pharmacy 69.1 ml/min; Est GFR (African American) 84.5; Est GFR (Non-African American) 72.9; Magnesium 2.1 mg/dl (1.8-2.4); Potassium 4.1 mmol/L (3.5-5.1)
[2021-01-15 07:32] LABS: Partial Thromboplastin Time 79.5 Seconds (21.0-31.0)
[2021-01-15] MEDS: POTASSIUM CHLORIDE 10 MEQ TABCR PO SCH (08:01)
[2021-01-15] MEDS: lisinopril 2.5 MG TAB PO SCH (08:02)
[2021-01-15] MEDS: ASPIRIN 81 MG CHEW PO SCH (08:02)
[2021-01-15] MEDS: METOPROLOL SUCC 25MG EXT REL TAB PO SCH (08:02)
[2021-01-15] MEDS: FUROSEMIDE 40 MG TAB PO SCH (08:02)
[2021-01-15] MEDS: PANTOprazole 40 MG TAB PO SCH (08:02)
[2021-01-15] MEDS: CHOLECALCIFEROL 1,000 UNITS 25 MCG TAB PO SCH (08:02)
[2021-01-15] MEDS: INSULIN ASPART 100 UNITS/ML 3 ML PEN SC SCH ×2 (08:04→12:57)
[2021-01-15] MEDS ORDERED: AMIODARONE 200 MG TAB PO SCH (09:00)
[2021-01-15 11:54] VITALS: BP 135/77; TEMP 98.2; O2SAT 93
--- NOTE | 2021-01-15 12:02 | Hospitalist Progress Note ---
Date of Service January 15, 2021 Assessment & Plan (1) Chest pain: Atypical Chest Pain Likely Pleuritic/musculoskeletal H/O CAD S/P CABG R/O ACS Serial troponins and EKG are unremarkable Continue Aspirin, statin, Metoprolol Appreciate cardiology consult and recommendation Subtherapeutic INR CTA did not show any pulmonary embolism Noted to have nonocclusive DVT within the right lower extremity Given subtherapeutic INR, will start on IV heparin and DC once INR is therapeutic INR is 2.0 today We will continue heparin intravenously for now and continue Coumadin He will go home this afternoon no matter what happens . INR is 2.2 today and he will be about 48 hours on heparin Factor V Leiden is pending Atrial fibrillation H/O SSS s/p Pacemaker Continue amiodarone, metoprolol cardiology consulted, input appreciated On Coumadin for anticoagulation Advised to have regular follow-up with the Coumadin clinic keep the INR between 2-3 Chronic systolic heart failure H/O Ischemic cardiomyopathy Euvolemic currently Continue home diuretics Monitor volume status H/O PVD Continue statin, aspirin Hyperlipidemia on statin Metastatic prostate cancer S/P Radiation, Lupron Progressive disease on recent CT Follow up with Oncology as outpatient Awaiting insurance coverage approval for Enzalutamide. AL on CPAP H/O PE/DVT On Coumadin DM II HbA1C:6.3 Hold PO meds Continue Insulin Monitor BGs DVT Px: Coumadin, IV Heparin Code Status Full code Disposition Expected discharge home when medically stable Will be discharged home this afternoon Admission and Anticipated Discharge Date Admission Date: January 13, 2021 Subjective 01/14/2021 The patient was seen and examined in telemetry unit He was admitted with right-sided chest pain which was noted to be with deep inspiration Denies any other associated symptoms 01/15/2021 The patient was seen and examined in the telemetry unit He remains stable and denies any symptoms No more chest pain, no pain in the calf and no shortness of breath Review of Systems Review of Systems: All systems reviewed and are unremarkable except as noted below Respiratory: + pain on inspiration (Right-sided lower chest pain at the back); no cough and no dyspnea Cardiovascular: no chest pain (Right-sided as above), no chest pain with activity, no dyspnea, no dyspnea at rest, no dyspnea on exertion and no orthopnea Physical Exam Physical Exam: Lying in bed comfortably Constitutional: well developed, well nourished and + obese; not ill appearing Eyes: PERRL, conjunctivae normal, anicteric sclerae ENMT: external ear and nose normal, oropharynx normal Neck: trachea midline, no thyromegaly Respiratory: no respiratory distress Auscultation: lungs clear to aus cultation bilaterally Cardiovascular: Rate/Rhythm: regular rate and regular rhythm Heart Sounds: + murmur (2/6 over precordium and aortic area) Gastrointestinal (Abdomen): Inspection/Auscultation: normal bowel sounds; abdomen not distended Percussion/Palpation: abdomen soft; abdomen nontender Musculoskeletal: Acute arthritis in any joint Neurologic: Alert, awake and oriented x3. No focal sensory or motor deficit appreciated Psychiatric: A+Ox3, euthymic affect Lymphatic: no cervical or axillary lymphadenopathy Results & Data Results & Data ([facility]) Vital Signs (Past 12 Hours) Vital Signs Temp Pulse Resp BP Pulse Ox 01/15/21 11:53 36.8 C 30 L 19 135/77 93 01/15/21 07:15 36.9 C 63 22 158/84 H 95 01/15/21 03:42 36.6 C 60 18 135/79 94 Laboratory Results Short CBC 01/15/21 Range/Units 06:36 WBC 3.55 L (4.8-10.8) K/uL Hgb 13.2 L (14.0-18.0) g/dL Hct 37.6 L (42-52) % Plt Count 169 (130-400) K/uL BMP 01/15/21 06:36 Sodium 135 L Potassium 4.1 Chloride 103 Carbon Dioxide 28 BUN 17 Creatinine 0.97 Glucose 168 H Calcium 8.8 Medications Administered Current Inpatient Medications Acetaminophen (Acetaminophen 325 Mg Tab) 650 mg PO Q4H PRN PRN Reason: Pain or Fever Stop: 02/12/21 15:11 Amiodarone HCl (Amiodarone 200 Mg Tab) 200 mg PO DAILY KENDRICK Stop: 02/14/21 08:59 Last Admin: 01/15/21 08:02 Dose: 200 mg Documented by: Aspirin (Aspirin 81 Mg Chew) 81 mg PO QAM KENDRICK Stop: 02/13/21 08:59 Last Admin: 01/15/21 08:02 Dose: 81 mg Documented by: Atorvastatin Calcium (Atorvastatin 20 Mg Tab) 20 mg PO HS KENDRICK Stop: 02/12/21 20:59 Last Admin: 01/14/21 21:49 Dose: 20 mg Documented by: Dextrose (Dextrose 50% 50 Ml Syringe) 25 - 50 ml IV UD PRN; Protocol PRN Reason: Hypoglycemia Protocol Stop: 02/12/21 13:25 Furosemide (Furosemide 40 Mg Tab) 40 mg PO DAILY KENDRICK Stop: 02/13/21 08:59 Last Admin: 01/15/21 08:02 Dose: 40 mg Documented by: Glucagon (Glucagon For Inj 1 Mg Vial) 1 mg SQ UD PRN; Protocol PRN Reason: Hypoglycemia Protocol Stop: 02/12/21 13:25 Glucose (Glucose 10 Tabs/Tube) 4 - 8 tabs PO UD PRN; Protocol PRN Reason: Hypoglycemia Protocol Stop: 02/12/21 13:25 Glucose (Glucose 40% Gel 15 Gm Tube) 15 - 30 gm PO UD PRN; Protocol PRN Reason: Hypoglycemia Protocol Stop: 02/12/21 13:25 Heparin Sodium/Dextrose (Heparin Sodium/Dextrose) 25,000 units in 500 mls @ 18 mls/hr IV .Q24H [facility]; Protocol Stop: 02/12/21 13:14 Last Titration: 01/15/21 07:40 Dose: 900 units/hr, 18 mls/hr Documented by: Insulin Aspart (Insulin Aspart 100 Units/Ml 3 Ml Pen) 0 units SC ACHS [facility] Stop: 02/12/21 16:29 Last Admin: 01/15/21 08:04 Dose: 7 units Documented by: Lisinopril (Lisinopril 2.5 Mg Tab) 2.5 mg PO QAM KENDRICK Stop: 02/13/21 08:59 Last Admin: 01/15/21 08:02 Dose: 2.5 mg Documented by: Metoprolol Succinate (Metoprolol Succ 25mg Ext Rel Tab) 25 mg PO BID [facility] Stop: 02/12/21 20:59 Last Admin: 01/15/21 08:02 Dose: 25 mg Documented by: Miscellaneous (Carbohydrates For Hypoglycemia ) 15 - 30 gm PO UD PRN PRN Reason: Hypoglycemia Protocol Stop: 02/12/21 13:25 Nitroglycerin (Nitroglycerin Sl 0.4 Mg/Tab Tab) 0.4 mg SL PRN PRN PRN Reason: Chest Pain Stop: 02/12/21 15:11 Ondansetron HCl (Ondansetron Inj 2 Mg/Ml 2 Ml Vial) 4 mg IV Q6H PRN PRN Reason: Nausea Stop: 02/12/21 15:11 Pantoprazole Sodium (Pantoprazole 40 Mg Tab) 40 mg PO BID [facility] Stop: 02/12/21 20:59 Last Admin: 01/15/21 08:02 Dose: 40 mg Documented by: Polyethylene Glycol (Polyethylene (Miralax) 17 Gm Pack) 17 gm PO DAILY PRN PRN Reason: Constipation Stop: 02/12/21 15:11 Potassium Chloride (Potassium Chloride 10 Meq Tabcr) 10 meq PO BID [facility] Stop: 02/12/21 20:59 Last Admin: 01/15/21 08:01 Dose: 10 meq Documented by: Vitamin D (Cholecalciferol 1,000 Units 25 Mcg Tab) 1,000 units PO DAILY [facility] Stop: 02/13/21 08:59 Last Admin: 01/15/21 08:02 Dose: 1,000 units Documented by:
[2021-01-15] MEDS: HEPARIN SODIUM/DEXTROSE 25,000 UNITS/500 ML BAG IV SCH (14:48)
[2021-01-15 14:55] VITALS: PULSE 84
--- NOTE | 2021-01-16 09:07 | Discharge Summary ---
Date of Service January 16, 2021 Admission HPI Per Admitting Provider Patient is an 80-year-old male with history of ischemic cardiomyopathy, valvular heart disease, pulmonary hypertension, coronary artery disease S/P CABG, peripheral vascular disease, SSS S/P PPM, hypertension, hyperlipidemia, AL on CPAP, H/O DVT, PE, DM II, metastatic prostate cancer, past tobacco use and other medical problems who was recently discharged from [facility] after being treated for A. fib RVR presents with history of right-sided chest pain from this morning. Patient states chest pain is right-sided, 5/10 intensity, dull, nonexertional, increases with deep breathing, radiates to right shoulder, associated with chronic dyspnea on exertion which is unchanged. He admits to taking his medications regularly and follow-up with Coumadin clinic for managing his Coumadin dosing. Denies any history of SOB at rest, palpitations, dizziness, cough, hemoptysis, fever, chills, fall, chest trauma, LOC, headache, nausea, vomiting, abdominal pain. Chest x-ray showed mildly improved aeration of the lung bases with mild persistent interstitial opacities. Right hilar prominence corresponding to pathologic adenopathy is redemonstrated along with bilateral pulmonary nodules. His INR is subtherapeutic at 1.6. EKG showed no signs of acute ischemia. Admission Exam Per Admitting Provider Physical Exam: Physical Exam: Vitals signs as noted above General Appearance:Obese, no apparent distress Head: normocephalic, Atraumatic Eyes: normal inspection, EOMI Neck: supple, Trachea midline Respiratory/Chest: Normal breath sounds, CTA, No accessory muscle use, + Pacemaker on Left side + No chest tenderness on palpation Cardiovascular: S1, S2, + systolic murmur Abdomen/GI:Soft, Non tender, Bowel sounds present Extremities/Musculoskeletal:normal inspection, no edema Neurologic/Psych:AAOX3, grossly no focal neurological deficits Skin: normal color, warm Principal Diagnosis Right-sided chest pain likely secondary to pleurisy/musculoskeletal condition, atrial fibrillation, chronic systolic heart failure, nonocclusive DVT within the right lower extremity Discharge Exam Constitutional well developed, well nourished and + obese; not ill appearing Eyes PERRL, conjunctivae normal, anicteric sclerae ENMT external ear and nose normal, oropharynx normal Neck trachea midline, no thyromegaly Respiratory no respiratory distress Auscultation: lungs clear to auscultation bilaterally Cardiovascular Rate/Rhythm: regular rate and regular rhythm Heart Sounds: + murmur (2/6 over precordium and aortic area) Gastrointestinal (Abdomen) Inspection/Auscultation: normal bowel sounds; abdomen not distended Percussion/Palpation: abdomen soft; abdomen nontender Psychiatric A+Ox3, euthymic affect Lymphatic no cervical or axillary lymphadenopathy Discharge Data Allergies Allergy/AdvReac Type Severity Reaction Status Date / Time No Known Allergies Allergy Verified 01/13/21 11:27 Consultations 01/13/21 12:51 ED Decision to Admit Stat 01/13/21 12:52 Consult Cardiology Stat 01/13/21 15:12 Consult Cardiology Routine Ordered Studies 01/13/21 13:17 US venous doppler LE BI Stat 01/13/21 15:28 CT angio chest PE protocol Urgent Hospital Course (1) Chest pain: Atypical Chest Pain Likely Pleuritic/musculoskeletal H/O CAD S/P CABG R/O ACS Serial troponins and EKG are unremarkable Continue Aspirin, statin, Metoprolol Appreciate cardiology consult and recommendation Subtherapeutic INR CTA did not show any pulmonary embolism Noted to have nonocclusive DVT within the right lower extremity Given subtherapeutic INR, will start on IV heparin and DC once INR is therapeutic INR is 2.0 today We will continue heparin intravenously for now and continue Coumadin He will go home this afternoon no matter what happens . INR is 2.2 today and he will be about 48 hours on heparin Factor V Leiden is pending Atrial fibrillation H/O SSS s/p Pacemaker Continue amiodarone, metoprolol cardiology consulted, input appreciated On Coumadin for anticoagulation Advised to have regular follow-up with the Coumadin clinic keep the INR between 2-3 Chronic systolic heart failure H/O Ischemic cardiomyopathy Euvolemic currently Continue home diuretics Monitor volume status H/O PVD Continue statin, aspirin Hyperlipidemia on statin Metastatic prostate cancer S/P Radiation, Lupron Progressive disease on recent CT Follow up with Oncology as outpatient Awaiting insurance coverage approval for Enzalutamide. AL on CPAP H/O PE/DVT On Coumadin DM II HbA1C:6.3 Hold PO meds Continue Insulin Monitor BGs DVT Px: Coumadin, IV Heparin Code Status Full code Disposition Expected discharge home when medically stable Will be discharged home this afternoon Total Time Total Time Spent Total Time Spent (In Minutes): 35 minutes Total Time Includes: Examination of the Patient, Discharge Planning, Medication Reconciliation and Communication With Other Providers Discharge Plan Discharge Items Patient Disposition: Home - Self-Care Reason For Visit: CHEST PAIN,SOB Discharge Diagnosis: Right-sided chest pain likely secondary to pleurisy/musculoskeletal condition, atrial fibrillation, chronic systolic heart failure, nonocclusive DVT within the right lower extremity Condition on Discharge: Good Activity: Resume your previous activity Non-emergency contact: Primary Care Provider Call non-emergency contact if: you have any medication questions and your symptoms worsen Follow-up/Referrals: Fredy Loza [Primary Care Provider] - (Date & Time 01/17/2021 11:20 AM Provider Justa Lebron DO [facility] ) Diet: Carb Consistent or DM2 and Heart Healthy Addtl Attending Provider Instructions: Please have regular follow-up with your Coumadin clinic to maintain your INR in between 2-3 Please have her follow-up with the coagulation clinic on Sunday. No other change in your medications Keep appointments with your doctors Pending Studies at Discharge: Yes Studies:: Factor V Leiden Stand-Alone Forms: My [employer] Smoking Cessation Medications and DC Order Prescriptions: Continued glipizide 10 mg tablet extended release 24hr 10 mg PO BID RF: 0 omeprazole 20 mg capsule,delayed release(DR/EC) 20 mg PO BID RF: 0 aspirin 81 mg tablet,chewable 81 mg PO QAM RF: 0 metoprolol succinate 25 mg tablet extended release 24 hr 25 mg PO BID RF: 0 metformin 500 mg tablet extended release 24 hr 500 mg PO QAM RF: 0 lisinopril 2.5 mg tablet 2.5 mg PO QAM RF: 0 potassium chloride [Klor-Con M10] 10 mEq tablet,ER particles/crystals 10 meq PO BID RF: 0 Glucosamine Chondroitin 550-30-1 mg Capsule 1 cap PO BID RF: 0 nitroglycerin [Nitrostat] 0.4 mg Tablet, Sublingual 0.4 mg sublingual DIRECTED PRN (Reason: Chest Pain) RF: 0 pioglitazone 45 mg tablet 45 mg PO QAM RF: 0 fluocinonide 0.05 % Solution 1 applic TOPICAL DAILY PRN (Reason: Itching) RF: 0 ketoconazole 2 % shampoo 1 applic TOPICAL DIRECTED RF: 0 acetaminophen [Tylenol] 325 mg Tablet 975 mg PO QID PRN (Reason: Fever Or Pain) RF: 0 ascorbic acid (vitamin C) 250 mg Tablet 0 mg PO QAM RF: 0 cholecalciferol (vitamin D3) 25 mcg (1,000 unit) Tablet 0 mcg PO DAILY RF: 0 warfarin 5 mg Tablet 5 mg PO UD RF: 0 furosemide [Lasix] 40 mg Tablet 40 mg PO DAILY RF: 0 amiodarone 200 mg Tablet 200 mg PO BIDM Qty: 60 RF: 0 atorvastatin 20 mg Tablet 20 mg PO HS Qty: 30 RF: 0 Discharge Orders: Discharge Order (Routine); Ordered 01/15/21 Ordered By: Lizbeth Fuentes Admission Data Admit Date/Time: 01/13/21 13:23 Attending Provider: Lizbeth Fuentes Admit Provider: Bernard Kruger Primary Care Provider: Fredy Loza Other Providers: Justa Lebron ; Pavan Horvath ; Bernard Kruger Other Interventions: Discharge Summary Assessment (RN) Last Done: 01/15/21 14:54
== END 2021-01-15 15:56 | disposition home or self-care (01) ==
LOC: ED 09:41 → 2S 09:41 → SUATTDRO 13:23 → 2S 15:25

== ENCOUNTER 2021-03-22 16:08 | Inpatient (IN) ==
[2021-03-22 18:35] LABS: Hematocrit (blood only) 34.1 % (42-52); Hemoglobin 11.1 g/dL (14.0-18.0); Mean Corpuscular Hemoglobin 28.8 pg (25-34); Mean Corpuscular Hgb Conc 32.6 g/dL (32-36); Mean Corpuscular Volume 88.3 fL (80-100); Mean Platelet Volume 8.6 fL (7.4-10.4); Platelet Count 148 K/uL (130-400); RDW Standard Deviation 57.8 fL (36.4-46.3); Red Blood Count 3.86 M/uL (4.7-6.1)
--- NOTE | 2021-03-22 18:40 | Emergency Department Note ---
Impression & Plan Neutropenia, Systolic ejection murmur, GILBERT (dyspnea on exertion) ED Provider Note NAME: PAULA DORSEY AGE: 80 SEX: M : 1940 ARRIVES VIA: Walk-In INFORMANT: Patient, ED PROVIDER(S): John Martell DO CHIEF COMPLAINT: Shortness of breath HPI: The patient is an 80-year-old male who presented to the emergency department for an evaluation of difficulty breathing. The patient has been experiencing shortness of breath with exertion over the course the last 2 weeks. He was seen by his primary care physician today and was found to be hypoxic with exertion so he was sent to the emergency department for further evaluation. The patient denies having any fever. He does complain of a dry cough. He denies having any lower extremity swelling. He denies having orthopnea. He does complain of dyspnea on exertion. Symptoms are mildly improved with rest. They are worsened with exertion. The patient states he has been compliant with all his outpatient medication regimen otherwise. The patient states he is noticed no black or bloody bowel movements. ROS: See above HPI for pertinent positives & negatives. A total of 10 systems reviewed and were otherwise negative. PAST MEDICAL HISTORY: See Below PAST SURGICAL HISTORY: See Below FAMILY HISTORY: See Below SOCIAL HISTORY: See Below HOME MEDICATIONS: See Below ALLERGIES: See Below VITALS: See Below PHYSICAL EXAMINATION: GENERAL: Patient is awake alert in no acute distress patient is resting comfortably and showing no signs of anxiety EYES: The conjunctivae are clear. The pupils are round and reactive. EARS, NOSE, MOUTH AND THROAT: The nose is without any evidence of any deformity. Mucous membranes are moist. Tongue is midline. NECK: The neck is nontender and supple. RESPIRATORY: Normal respiratory effort is noted there is no evidence of wheezing rhonchi or rales CARDIOVASCULAR: Regular rate and rhythm was noted to auscultation. Systolic murmur was suggested. GASTROINTESTINAL: The abdomen is soft. Abdomen is nontender. MUSCULOSKELETAL/EXTREMITIES: There is no evidence of gross deformity full range of motion is noted in the hips and shoulders. SKIN: There is no obvious evidence of any rash. There are no petechiae, pallor or cyanosis noted. NEUROLOGIC: Patient is awake alert and oriented x3. MEDICAL DECISION MAKING: The patient is an 80-year-old male who presented to the emergency department for an evaluation of shortness of breath. The patient was having severe shortness of breath with exertion. He has a history of prostate cancer. He was sent from his primary care physician's office for hypoxia. I discussed the patient's laboratory and radiographic studies with him. CT angiography did not appear to be consistent with pulmonary embolism. He was found to have neutropenia. He did not have a fever in the emergency department. I discussed the patient's laboratory and radiographic studies [facility] have agreed to evaluate the patient in the emergency department for further management and disposition. Triage Nursing notes reviewed. Prior medical records reviewed Vital Signs: reviewed and remarkable for no significant abnormalities Differential diagnosis: Reactive airway disease, pneumonia, pneumothorax, COPD, CHF, infections, cardiac ischemia, pulmonary embolism, musculoskeletal, gastrointestinal, as well as other pathologies. ER treatment provided: See below Diagnostics interpreted by me: ECG: EKG was obtained in the emergency department. My interpretation is atrial paced rhythm at 61 bpm. A right bundle branch block pattern was noted. There were no [place] beats noted. This was compared to a tracing from January 142020. No significant changes were noted. Cardiac Monitoring: An order was placed for continuous cardiac monitoring. The monitor shows a rate of 65 bpm with paced rhythm. Laboratory studies: As stated above and show below. Imaging studies: See below Consultation(s): I discussed this case with Dr. uRiz who [facility]. Past Med/Surg History Medical History Asthma DM2 (diabetes mellitus, type 2) DVT (deep venous thrombosis) "RLE" Dyspnea on minimal exertion History of left heart catheterization (LHC) "60% stenosis mid left anterior descending " HLD (hyperlipidemia) Hyperlipidemia Hypertension Hypoxia AL on CPAP Paroxysmal atrial fibrillation Prostate cancer (10/22/17) Systolic ejection murmur Tachy-shanita syndrome Surgical History H/O esophagogastroduodenoscopy Hx of total knee arthroplasty S/P CABG x 1 S/P cholecystectomy S/P hip replacement S/P knee replacement Family History Other No pertinent family history Social History (Reviewed 03/22/21 @ 18:37 by MAYO Silva Smoking Status: Never smoker Cigarettes Per Day: 40; Second Hand Exposure: No; Hx Alcohol Use: No Hx Substance Use: No Preferred Language: Ivorian Communication Ability: Effective Visual Impairment: No Limitations Hearing Ability: Normal New Home Sales Consultant Required: No Beliefs That Will Affect Care: None marital status: Current Living Situation: Spouse Current Living Situation Comment: house Feels Safe at Home: Yes Assistive Devices: None Allergies Allergies Allergy/AdvReac Type Severity Reaction Status Date / Time No Known Allergies Allergy Verified 03/22/21 18:40 Home Meds Home Medications Medication Instructions Recorded Confirmed Glucosamine Chondroitin 1 cap PO BID 02/21/19 03/22/21 aspirin 81 mg PO QAM 02/21/19 03/22/21 glipizide 10 mg PO BID 02/21/19 03/22/21 lisinopril 2.5 mg PO QAM 02/21/19 03/22/21 metoprolol succinate 25 mg PO BID 02/21/19 03/22/21 nitroglycerin [Nitrostat] 0.4 mg SUBLINGUAL DIRECTED PRN 02/21/19 03/22/21 omeprazole 20 mg PO BID 02/21/19 03/22/21 potassium chloride [Klor-Con M10] 10 meq PO BID 02/21/19 03/22/21 fluocinonide 1 applic TOPICAL DAILY PRN 09/20/20 03/22/21 ketoconazole 1 applic TOPICAL DIRECTED 09/20/20 03/22/21 pioglitazone 45 mg PO QAM 09/20/20 03/22/21 acetaminophen [Tylenol] 975 mg PO QID PRN 01/08/21 03/22/21 ascorbic acid (vitamin C) 0 mg PO QAM 01/08/21 03/22/21 cholecalciferol (vitamin D3) 0 mcg PO PM 01/08/21 03/22/21 furosemide [Lasix] 40 mg PO QAM 01/09/21 03/22/21 warfarin 5 mg PO QAM 01/09/21 03/22/21 Previous Rx's Medication Instructions Recorded amiodarone 200 mg PO BIDM #60 tab 01/11/21 atorvastatin 20 mg PO HS #30 tab 01/11/21 Results & Data (ED) Vital Signs Vital Signs - 24 hr 03/22/21 16:17 03/22/21 18:15 03/22/21 18:16 Temperature 36.4 C L Temperature Source Temporal Artery Scan Pulse Rate 82 Pulse Rate [Right Finger] 61 Pulse Rate from SpO2 Sensor Pulse Rhythm Regular Pulse Strength Normal Respiratory Rate 20 18 Respiratory Effort / Characteristics Spontaneous Non-Labored Spontaneous Respiratory Depth Normal Normal Respiratory Pattern Regular Regular Blood Pressure 133/80 Blood Pressure [Right Arm] 135/70 Blood Pressure Mean 97 Blood Pressure Mean [Right Arm] 91 Blood Pressure Position [Right Arm] Lying Pulse Oximetry 94 98 97 Oxygen Delivery Method Room Air Room Air Room Air Oxygen Flow Rate Sepsis Recent Fever Within 48 Hours No Sepsis New/Unexplained Change in Mental Status No Sepsis Action Taken by Nursing No Action Required 03/22/21 18:17 03/22/21 20:11 03/22/21 21:12 Temperature Temperature Source Pulse Rate 67 Pulse Rate [Right Finger] Pulse Rate from SpO2 Sensor 67 Pulse Rhythm Pulse Strength Respiratory Rate 16 Respiratory Effort / Characteristics Respiratory Depth Respiratory Pattern Blood Pressure 136/78 Blood Pressure [Right Arm] Blood Pressure Mean 97 Blood Pressure Mean [Right Arm] Blood Pressure Position [Right Arm] Pulse Oximetry 97 96 96 Oxygen Delivery Method Room Air Room Air Nasal Cannula Oxygen Flow Rate 2 Sepsis Recent Fever Within 48 Hours Sepsis New/Unexplained Change in Mental Status Sepsis Action Taken by Nursing 03/22/21 21:13 03/22/21 22:00 03/22/21 23:01 Temperature Temperature Source Pulse Rate 60 63 67 Pulse Rate [Right Finger] Pulse Rate from SpO2 Sensor 60 63 64 Pulse Rhythm Pulse Strength Respiratory Rate 16 16 24 Respiratory Effort / Characteristics Respiratory Depth Respiratory Pattern Blood Pressure 140/75 156/89 H 123/68 Blood Pressure [Right Arm] Blood Pressure Mean 96 111 86 Blood Pressure Mean [Right Arm] Blood Pressure Position [Right Arm] Pulse Oximetry 99 98 97 Oxygen Delivery Method Nasal Cannula Nasal Cannula Nasal Cannula Oxygen Flow Rate 2 2 2 Sepsis Recent Fever Within 48 Hours Sepsis New/Unexplained Change in Mental Status Sepsis Action Taken by Residential Medications Current Medication List: was personally reviewed by me Laboratory Data Attestation: I reviewed the patient's lab results. Result diagrams: 03/22/21 18:18 03/22/21 18:18 Lab Results 03/22/21 03/22/21 03/22/21 Range/Units 18:18 18:18 18:18 WBC 1.10 L (4.8-10.8) K/uL RBC 3.86 L (4.7-6.1) M/uL Hgb 11.1 L (14.0-18.0) g/dL Hct 34.1 L (42-52) % MCV 88.3 (80-100) fL MCH 28.8 (25-34) pg MCHC 32.6 (32-36) g/dL RDW Std Deviation 57.8 H (36.4-46.3) fL RDW Coeff of Bradly 18.0 H (11.5-14.5) % Plt Count 148 (130-400) K/uL MPV 8.6 (7.4-10.4) fL Immature Gran % (Auto) 0.9 % Neut % (Auto) 14.5 % Lymph % (Auto) 46.4 % Allen % (Auto) 35.5 % Eos % (Auto) 1.8 % Baso % (Auto) 0.9 % Neut # (Auto) 0.16 L* (1.4-6.5) K/uL Lymph # (Auto) 0.51 L (1.2-3.4) K/uL Allen # (Auto) 0.39 (0.11-0.59) K/uL Eos # (Auto) 0.02 (0-0.5) K/uL Baso # (Auto) 0.01 (0-0.2) K/uL Immature Gran # (Auto) 0.01 (0.00-0.02) K/uL PT 14.6 H (9.0-12.0) Seconds INR 1.5 H (0.9-1.1) APTT 28.9 (21.0-31.0) Seconds PTT Ratio 1.1 D-Dimer 830 H* (0-500) ug/L FEU Sodium 140 (136-145) mmol/L Potassium 3.8 (3.5-5.1) mmol/L Chloride 107 (98-107) mmol/L Carbon Dioxide 25 (21-32) mmol/L Anion Gap 8.0 (3-11) BUN 15 (7-18) mg/dl Creatinine 0.82 (0.6-1.4) mg/dl Est Cr Clr Drug Dosing Not Reportable Est GFR ( Amer) 96.1 ml/min Est GFR (Non-Af Amer) 82.9 ml/min BUN/Creatinine Ratio 18.7 (10-20) Glucose 122 H (70-99) mg/dl Calcium 8.8 (8.5-10.1) mg/dl Magnesium 2.2 (1.8-2.4) mg/dl Total Bilirubin 0.7 (0.2-1) mg/dl AST 22 (15-37) U/L ALT 29 (12-78) U/L Alkaline Phosphatase 113 (45-117) U/L Troponin I < 0.015 (0-0.045) ng/ml NT-Pro-B Natriuret Pep 504 (0-1800) pg/ml Total Protein 6.4 (6.4-8.2) gm/dl Albumin 3.2 L (3.4-5.0) gm/dl Globulin 3.2 (2.5-4.0) gm/dl Albumin/Globulin Ratio 1.0 (0.9-2) COVID-19 Eval Order SARS-CoV-2 (PCR) (Negative) 03/22/21 03/22/21 Range/Units 20:10 20:10 WBC (4.8-10.8) K/uL RBC (4.7-6.1) M/uL Hgb (14.0-18.0) g/dL Hct (42-52) % MCV (80-100) fL MCH (25-34) pg MCHC (32-36) g/dL RDW Std Deviation (36.4-46.3) fL RDW Coeff of Bradly (11.5-14.5) % Plt Count (130-400) K/uL MPV (7.4-10.4) fL Immature Gran % (Auto) % Neut % (Auto) % Lymph % (Auto) % Allen % (Auto) % Eos % (Auto) % Baso % (Auto) % Neut # (Auto) (1.4-6.5) K/uL Lymph # (Auto) (1.2-3.4) K/uL Allen # (Auto) (0.11-0.59) K/uL Eos # (Auto) (0-0.5) K/uL Baso # (Auto) (0-0.2) K/uL Immature Gran # (Auto) (0.00-0.02) K/uL PT (9.0-12.0) Seconds INR (0.9-1.1) APTT (21.0-31.0) Seconds PTT Ratio D-Dimer (0-500) ug/L FEU Sodium (136-145) mmol/L Potassium (3.5-5.1) mmol/L Chloride (98-107) mmol/L Carbon Dioxide (21-32) mmol/L Anion Gap (3-11) BUN (7-18) mg/dl Creatinine (0.6-1.4) mg/dl Est Cr Clr Drug Dosing Est GFR ( Amer) ml/min Est GFR (Non-Af Amer) ml/min BUN/Creatinine Ratio (10-20) Glucose (70-99) mg/dl Calcium (8.5-10.1) mg/dl Magnesium (1.8-2.4) mg/dl Total Bilirubin (0.2-1) mg/dl AST (15-37) U/L ALT (12-78) U/L Alkaline Phosphatase (45-117) U/L Troponin I (0-0.045) ng/ml NT-Pro-B Natriuret Pep (0-1800) pg/ml Total Protein (6.4-8.2) gm/dl Albumin (3.4-5.0) gm/dl Globulin (2.5-4.0) gm/dl Albumin/Globulin Ratio (0.9-2) COVID-19 Eval Order Covid19 at [facility] SARS-CoV-2 (PCR) NEGATIVE (Negative) Administered Medications Discontinued Medications Ioversol (Optiray 350 500ml) 117 ml IV ONCE ONE Stop: 03/22/21 19:22 Last Admin: 03/22/21 19:21 Dose: 117 ml Documented by: [id number] Imaging Data Radiologist's Impression: Chest X-Ray 03/22/21 18:05 XR chest 1V portable HISTORY: Dyspnea COMPARISON: Chest CTA 01/13/2021. FINDINGS: No pneumothorax. No pleural effusions. The heart is top normal in size. There are poststernotomy changes and a left-sided dual-chamber pacemaker. Bibasilar linear densities favor subsegmental atelectasis. Otherwise, no focal lung consolidations to suggest pneumonia. Right paratracheal lymphadenopathy and a few scattered pulmonary nodules are again noted consistent with metastatic disease. IMPRESSION: 1. Persistent bibasilar linear densities suggesting scarring or atelectasis. Otherwise, no new focal lung consolidations to suggest pneumonia. 2. No change in the mediastinal lymphadenopathy and small bilateral pulmonary nodules consistent with the patient's known metastatic disease. ACT 112: Negative or not required by law. Electronically signed by: Lamin Lal M.D. 03/22/2021 7:17 PM Chest CTA 03/22/21 19:18 CHEST CTA for PULMONARY ARTERIES CT DOSE: 721.09 mGy.cm HISTORY: Dyspnea. Assess for pulmonary embolus. TECHNIQUE: Multiaxial CT images of the chest were performed following the intravenous administration of contrast to evaluate the pulmonary arteries. Maxi mal intensity projection images were also obtained. A dose lowering technique was utilized adhering to the principles of ALARA. COMPARISON STUDY: Chest CTA 01/13/2021. FINDINGS: There is again noted mediastinal and bilateral hilar lymphadenopathy. This demonstrates a mixed response compared to the prior study with slight decrease in size in size in the AP window and bilateral hilar lymphadenopathy. There has been slight increase in size in the right paratracheal lymphadenopathy. Dominant right paratracheal lymph node measures 3.8 x 2.9 cm, previously measuring 3.2 x 2.7 cm. A left hepatic lobe mass is better appreciated on this study. This measures 3.6 cm and is consistent with metastatic disease. The visualized adrenal glands and spleen are unremarkable. There is a partially calcified 1.2 cm right subhepatic nodule on image 129 of series 2. Stable mild thickening at the distal esophagus. Left-sided pacemaker is again noted. Mild bilateral gynecomastia. No pleural or pericardial effusions. The heart is borderline enlarged. This remains unchanged. Mild calcified plaque within the normal caliber thoracic aorta. No filling defects within the pulmonary arteries to suggest pulmonary embolus. There are poststernotomy changes. No pneumothorax. Mass effect/narrowing of the right middle and lower lobe bronchi has almost completely resolved. Mild diffuse interstitial thickening, unchanged. This has a subtle nodular appearance which could be chronic. Lymphangitic spread of tumor is considered less likely but not entirely excluded. Multiple bilateral scattered pulmonary nodules are again noted and are stable to decreased in size compared to the prior study. Bibasilar linear densities favor subsegmental atelectasis. IMPRESSION: 1. No evidence for pulmonary embolus. 2. Mixed response of the mediastinal and bilateral hilar lymphadenopathy as described above. 3. Multiple metastatic pulmonary nodules which are stable to decreased in size compared to the prior study. 4. Mild diffuse interstitial thickening. This could be chronic. This has a s omewhat nodular appearance and therefore could represent lymphangitic spread of tumor. This bears watching on future examinations. 5. Left hepatic lobe metastasis. ACT 112: Negative or not required by law. Electronically signed by: Lamin Lal M.D. 03/22/2021 7:50 PM Discharge Plan Visit Data Chief Complaint: Shortness of Breath/Dyspnea Stated Complaint: SOB ED Provider: John Martell Discharge Problem: Neutropenia, Systolic ejection murmur, GILBERT (dyspnea on exertion) Patient Disposition: Admitted As Inpatient Condition: Good Discharge Instructions Interventions: ED Discharge Assessment Last Done: 03/22/21 23:24 Forms Stand Alone Forms: [facility] [employer] Prescriptions Prescriptions: No Action glipizide 10 mg tablet extended release 24hr 10 mg PO BID RF: 0 omeprazole 20 mg capsule,delayed release(DR/EC) 20 mg PO BID RF: 0 aspirin 81 mg tablet,chewable 81 mg PO QAM RF: 0 metoprolol succinate 25 mg tablet extended release 24 hr 25 mg PO BID RF: 0 lisinopril 2.5 mg tablet 2.5 mg PO QAM RF: 0 potassium chloride [Klor-Con M10] 10 mEq tablet,ER particles/crystals 10 meq PO BID RF: 0 Glucosamine Chondroitin 550-30-1 mg Capsule 1 cap PO BID RF: 0 nitroglycerin [Nitrostat] 0.4 mg Tablet, Sublingual 0.4 mg sublingual DIRECTED PRN (Reason: Chest Pain) RF: 0 pioglitazone 45 mg tablet 45 mg PO QAM RF: 0 fluocinonide 0.05 % Solution 1 applic TOPICAL DAILY PRN (Reason: Itching) RF: 0 ketoconazole 2 % shampoo 1 applic TOPICAL DIRECTED RF: 0 acetaminophen [Tylenol] 325 mg Tablet 975 mg PO QID PRN (Reason: Fever Or Pain) RF: 0 ascorbic acid (vitamin C) 250 mg Tablet 0 mg PO QAM RF: 0 cholecalciferol (vitamin D3) 25 mcg (1,000 unit) Tablet 0 mcg PO PM RF: 0 warfarin 5 mg Tablet 5 mg PO QAM RF: 0 furosemide [Lasix] 40 mg Tablet 40 mg PO QAM RF: 0 amiodarone 200 mg Tablet 200 mg PO BIDM Qty: 60 RF: 0 atorvastatin 20 mg Tablet 20 mg PO HS Qty: 30 RF: 0 Referrals Referrals: Fredy Loza [Primary Care Provider] - Discharge Problem: Neutropenia Qualifiers: Neutropenia type: unspecified Qualified Code(s): D70.9 - Neutropenia, unspecified
[2021-03-22 18:53] LABS: Alanine Aminotransferase 29 U/L (12-78); Albumin Level 3.2 gm/dl (3.4-5.0); Aspartate Aminotransferase 22 U/L (15-37); BUN Creatinine Ratio 18.7 (10-20); Blood Urea Nitrogen 15 mg/dl (7-18); Calcium 8.8 mg/dl (8.5-10.1); Carbon Dioxide 25 mmol/L (21-32); Chloride 107 mmol/L (98-107); Est GFR (African American) 96.1 ml/min; Est GFR (Non-African American) 82.9 ml/min; Glucose 122 mg/dl (70-99); Magnesium 2.2 mg/dl (1.8-2.4); Potassium 3.8 mmol/L (3.5-5.1); Sodium 140 mmol/L (136-145)
[2021-03-22 18:55] LABS: INR 1.5 (0.9-1.1); Partial Thromboplastin Ratio 1.1; Partial Thromboplastin Time 28.9 Seconds (21.0-31.0); Prothrombin Time 14.6 Seconds (9.0-12.0)
[2021-03-22 18:57] LABS: Alkaline Phosphatase 113 U/L (45-117); Bilirubin,Total 0.7 mg/dl (0.2-1); Globulin 3.2 gm/dl (2.5-4.0); NT Pro B Type Natriuretic Pept 504 pg/ml (0-1800); Total Protein 6.4 gm/dl (6.4-8.2); Troponin I < 0.015 ng/ml (0-0.045)
[2021-03-22 19:02] LABS: Basophils # (auto) 0.01 K/uL (0-0.2); Basophils % (auto) 0.9 %; Eosinophils # (auto) 0.02 K/uL (0-0.5); Eosinophils % (auto) 1.8 %; Immature Granulocytes # (auto) 0.01 K/uL (0.00-0.02); Immature Granulocytes % (auto) 0.9 %; Lymphocytes # (auto) 0.51 K/uL (1.2-3.4); Lymphocytes % (auto) 46.4 %; Monocytes # (auto) 0.39 K/uL (0.11-0.59); Monocytes % (auto) 35.5 %; Neutrophils # (auto) 0.16 K/uL (1.4-6.5); Neutrophils % (auto) 14.5 %
[2021-03-22 19:12] LABS: D Dimer 830 ug/L FEU (0-500)
--- NOTE | 2021-03-22 19:18 | XRay Report ---
XR chest 1V portable HISTORY: Dyspnea COMPARISON: Chest CTA 01/13/2021. FINDINGS: No pneumothorax. No pleural effusions. The heart is top normal in size. There are poststern otomy changes and a left-sided dual-chamber pacemaker. Bibasilar linear densities favor subsegmental atelectasis. Otherwise, no focal lung consolidations to suggest pneumonia. Right paratracheal lymphad enopathy and a few scattered pulmonary nodules are again noted consistent with metastatic disease. IMPRESSION: 1. Persistent bibasilar linear densities suggesting scarring or atelectasis. Otherwise, no new focal lung consolidations to suggest pneumonia. 2. No change in the mediastinal lymphadenopathy and small bilateral pulmonary nodules consistent with the patient's known metastatic disease. ACT 112: Negative or not required by law. Electronically signed by: Lamin Lal M.D. 03/22/2021 7:17 PM
[2021-03-22] MEDS ORDERED: OPTIRAY 350 500ml IV ONE (19:21)
--- NOTE | 2021-03-22 19:52 | CT Scan Report ---
CHEST CTA for PULMONARY ARTERIES CT DOSE: 721.09 mGy.cm HISTORY: Dyspnea. Assess for pulmonary embolus. TECHNIQUE: Multiaxial CT images of the chest were performed following the intravenous administration of contrast to evaluate the pulmonary arteries. Maximal intensity projection images were also obtaine d. A dose lowering technique was utilized adhering to the principles of ALARA. COMPARISON STUDY: Chest CTA 01/13/2021. FINDINGS: There is again noted mediastinal and bilateral hilar lymphadenopathy. This demonstrates a m ixed response compared to the prior study with slight decrease in size in size in the AP window and b ilateral hilar lymphadenopathy. There has been slight increase in size in the right paratracheal lymp hadenopathy. Dominant right paratracheal lymph node measures 3.8 x 2.9 cm, previously measuring 3.2 x 2.7 cm. A left hepatic lobe mass is better appreciated on this study. This measures 3.6 cm and is co nsistent with metastatic disease. The visualized adrenal glands and spleen are unremarkable. There is a partially calcified 1.2 cm right subhepatic nodule on image 129 of series 2. Stable mild thickenin g at the distal esophagus. Left-sided pacemaker is again noted. Mild bilateral gynecomastia. No pleur al or pericardial effusions. The heart is borderline enlarged. This remains unchanged. Mild calcified plaque within the normal caliber thoracic aorta. No filling defects within the pulmonary arteries to suggest pulmonary embolus. There are poststernotomy changes. No pneumothorax. Mass effect/narrowing of the right middle and lower lobe bronchi has almost completely resolved. Mild diffuse interstitial thickening, unchanged. This has a subtle nodular appearance which could be chronic. Lymphangitic spre ad of tumor is considered less likely but not entirely excluded. Multiple bilateral scattered pulmona ry nodules are again noted and are stable to decreased in size compared to the prior study. Bibasilar linear densities favor subsegmental atelectasis. IMPRESSION: 1. No evidence for pulmonary embolus. 2. Mixed response of the mediastinal and bilateral hilar lymphadenopathy as described above. 3. Multiple metastatic pulmonary nodules which are stable to decreased in size compared to the prior study. 4. Mild diffuse interstitial thickening. This could be chronic. This has a somewhat nodular appearanc e and therefore could represent lymphangitic spread of tumor. This bears watching on future examinati ons. 5. Left hepatic lobe metastasis. ACT 112: Negative or not required by law. Electronically signed by: Lamin Lal M.D. 03/22/2021 7:50 PM
--- NOTE | 2021-03-22 21:57 | History & Physical Report ---
Date of Service March 22, 2021 Assessment & Plan (1) Acute hypoxemic respiratory failure: Multifactorial : Abnormal CT chest Interstitial thickening, hilar adenopathy, pulmonary nodules Possible metastatic malignancy Prostate cancer status post radiation status post Lupron status post chemoth erapy Underlying pulmonary hypertension, PASP of 42 mmHg on recent outpatient TTE October 2020 AL on CPAP SSS status post PPM/history PE DVT on Coumadin, INR subtherapeutic chronic systolic heart failure (EF 37%, TTE 2020) secondary to ischemic cardiomyopathy, patient euvolemic valvular heart disease (moderate aortic stenosis, mild mitral regurgitation) CAD sp CABG, stent/ hx PVD as per records Hypertension, slight elevated hyperlipidemia on statin Rx DM2 on oral medications, well-controlled as of recent hemoglobin A1c of January 2021 Progressive anemia, steady hemoglobin decrease the last few months without evidence of overt bleeding past tobacco abuse Medical telemetry Supplemental O2 Pulmonary consult Re: Episodic hypoxemia, abnormal CT chest N.p.o./hold Coumadin until patient seen by Pulmonology in a.m. in anticipation of any procedure IV Heparin while Coumadin on hold if INR subtherapeutic Anemia work-up, transfuse PRBC if hemoglobin less than 8 and or for symptomatic anemia Basal insulin adjusted for n.p.o. status, ISS BG goal [id number], carb count coverage once diet advanced DVT prophylaxis. IV heparin while Coumadin on hold if INR less than 2 Full code Patient's requesting updates for providers. Ms. Lucinda Lopez, contact #[phone]. Text document was generated using [employer] voice recognition software. It may contain grammatical or spelling errors. Kindly contact undersigned for clarification of any documentation item in question. History of Present Illness Chief Complaint: Shortness of breath, low oxygen Primary Care Provider: Dr. Sury Lebron History obtained from patient, family, and records. Medical history significant for chronic systolic heart failure (EF 37%, TTE 2020) secondary ischemic cardiomyopathy, valvular heart disease (moderate aortic stenosis, mild mitral regurgitation on recent TTE), pulmonary hypertension, CAD status post CABG status post stent, PVD as per records, SSS sp PPM on Coumadin, hypertension, hyperlipidemia, AL on CPAP, PE/DVT as per records, DM2 on oral medications, metastatic prostate cancer status post radiation sp Lupron status post chemotherapy, chronic anemia (baseline hemoglobin 11 as of February 2021), past tobacco abuse. Recent confinement January [address] for pleuritic chest pain. CT chest did not show any pulmonary emboli but showed pulmonary metastasis with metastatic medial and hilar adenopathy with narrowing of the right middle and lower lobar bronchi and adjacent pulmonary artery secondary to pathologic hilar adenopathy. Possible hepatic metastasis. Nonocclusive DVT found on the right lower extremity. Patient later on found to be positive for 1 copy of factor V Leiden variant as per documentation. Patient discharged on Coumadin which she was already taking for paroxysmal A. fib history. In the last week, patient noted worsening shortness of breath especially on exertion. O2 sats 80s at home. Patient denies chest pain, cough symptoms. Patient denies abdominal pain, black/bloody stools. Lung CAT scan abnormality possibly cancer spread as per patient oncologist as per patient/. O2 sats noted to be 80's at PCP's office today. Patient sent to ER for evaluation. 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 Allergies Allergy/AdvReac Type Severity Reaction Status Date / Time No Known Allergies Allergy Verified 03/22/21 18:40 Home Medications Medication Instructions Recorded Confirmed Type Glucosamine Chondroitin 1 cap PO BID 02/21/19 03/22/21 History aspirin 81 mg PO QAM 02/21/19 03/22/21 History glipizide 10 mg PO BID 02/21/19 03/22/21 History lisinopril 2.5 mg PO QAM 02/21/19 03/22/21 History metoprolol succinate 25 mg PO BID 02/21/19 03/22/21 History nitroglycerin [Nitrostat] 0.4 mg SUBLINGUAL DIRECTED PRN 02/21/19 03/22/21 History omeprazole 20 mg PO BID 02/21/19 03/22/21 History potassium chloride [Klor-Con M10] 10 meq PO BID 02/21/19 03/22/21 History fluocinonide 1 applic TOPICAL DAILY PRN 09/20/20 03/22/21 History ketoconazole 1 applic TOPICAL DIRECTED 09/20/20 03/22/21 History pioglitazone 45 mg PO QAM 09/20/20 03/22/21 History acetaminophen [Tylenol] 975 mg PO QID PRN 01/08/21 03/22/21 History ascorbic acid (vitamin C) 0 mg PO QAM 01/08/21 03/22/21 History cholecalciferol (vitamin D3) 0 mcg PO PM 01/08/21 03/22/21 History furosemide [Lasix] 40 mg PO QAM 01/09/21 03/22/21 History warfarin 5 mg PO QAM 01/09/21 03/22/21 History amiodarone 200 mg PO BIDM #60 tab 01/11/21 03/22/21 Rx atorvastatin 20 mg PO HS #30 tab 01/11/21 03/22/21 Rx Past Med/Surg History Medical History Asthma DM2 (diabetes mellitus, type 2) DVT (deep venous thrombosis) "RLE" Dyspnea on minimal exertion History of left heart catheterization (LHC) "60% stenosis mid left anterior descending " HLD (hyperlipidemia) Hyperlipidemia Hypertension Hypoxia AL on CPAP Paroxysmal atrial fibrillation Prostate cancer (10/22/17) Systolic ejection murmur Tachy-shanita syndrome Surgical History H/O esophagogastroduodenoscopy Hx of total knee arthroplasty S/P CABG x 1 S/P cholecystectomy S/P hip replacement S/P knee replacement Family History Other No pertinent family history Social History Smoking Status: Former smoker Cigarettes Per Day: 40; Smoking End Date: 1959; Second Hand Exposure: No; Hx Alcohol Use: No Hx Substance Use: No Preferred Language: Bulgarian Communication Ability: Effective Visual Impairment: No Limitations Hearing Ability: Normal Main Line Assembler Required: No Beliefs That Will Affect Care: None marital status: Current Living Situation: Spouse Current Living Situation Comment: house Other Information That Helps Us Care for You: No Feels Safe at Home: Yes Safety Concerns: Feels Safe At This Time Assistive Devices: Cane Review of Systems Review of Systems: As per HPI, all 10 systems reviewed, all other ROS negative Physical Exam Physical Exam: GENERAL: Comfortable, pleasant, obese, no respiratory distress SKIN: Pallor, warm HEENT: Alopecia, pale palpebral conjunctivae, no ptosis, dry buccal mucosa, na divina cannula in place NECK : Supple, short neck, no tenderness CHEST : Decreased breath sounds, no tenderness HEART : RRR, systolic murmur no obvious murmurs ABDOMEN: Some distention, nontender RECTAL : Intact sphincter, brown yellow stool (FOBT negative) EXTREMITIES : Minimal LE swelling, no LE tenderness, no other conspicuous deformities noted NEUROLOGIC : Coherent, no facial asymmetry, no other gross focality Results & Data Results & Data ([facility]) Vital Signs (Past 12 Hours) Vital Signs Temp Pulse Pulse Resp BP BP Pulse Ox 03/22/21 21:12 96 03/22/21 20:11 67 16 136/78 96 03/22/21 18:17 97 03/22/21 18:16 61 18 135/70 97 03/22/21 18:15 98 03/22/21 16:17 36.4 C L 82 20 133/80 94 Laboratory Results Laboratory Results WBC 1.10 K/uL (4.8-10.8) L 03/22/21 18:18 RBC 3.86 M/uL (4.7-6.1) L 03/22/21 18:18 Hgb 11.1 g/dL (14.0-18.0) L 03/22/21 18:18 Hct 34.1 % (42-52) L 03/22/21 18:18 MCV 88.3 fL (80-100) 03/22/21 18:18 MCH 28.8 pg (25-34) 03/22/21 18:18 MCHC 32.6 g/dL (32-36) 03/22/21 18:18 RDW Std Deviation 57.8 fL (36.4-46.3) H 03/22/21 18:18 RDW Coeff of Bradly 18.0 % (11.5-14.5) H 03/22/21 18:18 Plt Count 148 K/uL (130-400) 03/22/21 18:18 MPV 8.6 fL (7.4-10.4) 03/22/21 18:18 Immature Gran % (Auto) 0.9 % 03/22/21 18:18 Neut % (Auto) 14.5 % 03/22/21 18:18 Lymph % (Auto) 46.4 % 03/22/21 18:18 Sterling % (Auto) 35.5 % 03/22/21 18:18 Eos % (Auto) 1.8 % 03/22/21 18:18 Baso % (Auto) 0.9 % 03/22/21 18:18 Neut # (Auto) 0.16 K/uL (1.4-6.5) L* 03/22/21 18:18 Lymph # (Auto) 0.51 K/uL (1.2-3.4) L 03/22/21 18:18 Sterling # (Auto) 0.39 K/uL (0.11-0.59) 03/22/21 18:18 Eos # (Auto) 0.02 K/uL (0-0.5) 03/22/21 18:18 Baso # (Auto) 0.01 K/uL (0-0.2) 03/22/21 18:18 Immature Gran # (Auto) 0.01 K/uL (0.00-0.02) 03/22/21 18:18 PT 14.6 Seconds (9.0-12.0) H 03/22/21 18:18 INR 1.5 (0.9-1.1) H 03/22/21 18:18 APTT 28.9 Seconds (21.0-31.0) 03/22/21 18:18 PTT Ratio 1.1 03/22/21 18:18 D-Dimer 830 ug/L FEU (0-500) H* 03/22/21 18:18 Sodium 140 mmol/L (136-145) 03/22/21 18:18 Potassium 3.8 mmol/L (3.5-5.1) 03/22/21 18:18 Chloride 107 mmol/L (98-107) 03/22/21 18:18 Carbon Dioxide 25 mmol/L (21-32) 03/22/21 18:18 Anion Gap 8.0 (3-11) 03/22/21 18:18 BUN 15 mg/dl (7-18) 03/22/21 18:18 Creatinine 0.82 mg/dl (0.6-1.4) 03/22/21 18:18 Est Cr Clr Drug Dosing Not Reportable 03/22/21 18:18 Est GFR ( Amer) 96.1 ml/min 03/22/21 18:18 Est GFR (Non-Af Amer) 82.9 ml/min 03/22/21 18:18 BUN/Creatinine Ratio 18.7 (10-20) 03/22/21 18:18 Glucose 122 mg/dl (70-99) H 03/22/21 18:18 Calcium 8.8 mg/dl (8.5-10.1) 03/22/21 18:18 Magnesium 2.2 mg/dl (1.8-2.4) 03/22/21 18:18 Total Bilirubin 0.7 mg/dl (0.2-1) 03/22/21 18:18 AST 22 U/L (15-37) 03/22/21 18:18 ALT 29 U/L (12-78) 03/22/21 18:18 Alkaline Phosphatase 113 U/L (45-117) 03/22/21 18:18 Troponin I < 0.015 ng/ml (0-0.045) 03/22/21 18:18 NT-Pro-B Natriuret Pep 504 pg/ml (0-1800) 03/22/21 18:18 Total Protein 6.4 gm/dl (6.4-8.2) 03/22/21 18:18 Albumin 3.2 gm/dl (3.4-5.0) L 03/22/21 18:18 Globulin 3.2 gm/dl (2.5-4.0) 03/22/21 18:18 Albumin/Globulin Ratio 1.0 (0.9-2) 03/22/21 18:18 COVID-19 Eval Order Covid19 at [facility] 03/22/21 20:10 SARS-CoV-2 (PCR) NEGATIVE (Negative) 03/22/21 20:10 Impressions Chest X-Ray 03/22/21 18:05 XR chest 1V portable HISTORY: Dyspnea COMPARISON: Chest CTA 01/13/2021. FINDINGS: No pneumothorax. No pleural effusions. The heart is top normal in size. There are poststernotomy changes and a left-sided dual-chamber pacemaker. Bibasilar linear densities favor subsegmental atelectasis. Otherwise, no focal lung consolidations to suggest pneumonia. Right paratracheal lymphadenopathy and a few scattered pulmonary nodules are again noted consistent with metastatic disease. IMPRESSION: 1. Persistent bibasilar linear densities suggesting scarring or atelectasis. Otherwise, no new focal lung consolidations to suggest pneumonia. 2. No change in the mediastinal lymphadenopathy and small bilateral pulmonary nodules consistent with the patient's known metastatic disease. ACT 112: Negative or not required by law. Electronically signed by: Lamin Lal M.D. 03/22/2021 7:17 PM Chest CTA 03/22/21 19:18 CHEST CTA for PULMONARY ARTERIES CT DOSE: 721.09 mGy.cm HISTORY: Dyspnea. Assess for pulmonary embolus. TECHNIQUE: Multiaxial CT images of the chest were performed following the intravenous administration of contrast to evaluate the pulmonary arteries. Maximal intensity projection images were also obtained. A dose lowering technique was utilized adhering to the principles of ALARA. COMPARISON STUDY: Chest CTA 01/13/2021. FINDINGS: There is again noted mediastinal and bilateral hilar lymphadenopathy. This demonstrates a mixed response compared to the prior study with slight decrease in size in size in the AP window and bilateral hilar lymphadenopathy. There has been slight increase in size in the right paratracheal lymphadenopathy. Dominant right paratracheal lymph node measures 3.8 x 2.9 cm, previously measuring 3.2 x 2.7 cm. A left hepatic lobe mass is better a ppreciated on this study. This measures 3.6 cm and is consistent with metastatic disease. The visualized adrenal glands and spleen are unremarkable. There is a partially calcified 1.2 cm right subhepatic nodule on image 129 of series 2. Stable mild thickening at the distal esophagus. Left-sided pacemaker is again noted. Mild bilateral gynecomastia. No pleural or pericardial effusions. The heart is borderline enlarged. This remains unchanged. Mild calcified plaque within the normal caliber thoracic aorta. No filling defects within the pulmonary arteries to suggest pulmonary embolus. There are poststernotomy changes. No pneumothorax. Mass effect/narrowing of the right middle and lower lobe bronchi has almost completely resolved. Mild diffuse interstitial thickening, unchanged. This has a subtle nodular appearance which could be chronic. Lymphangitic spread of tumor is considered less likely but not entirely excluded. Multiple bilateral scattered pulmonary nodules are again noted and are stable to decreased in size compared to the prior study. Bibasilar linear densities favor subsegmental atelectasis. IMPRESSION: 1. No evidence for pulmonary embolus. 2. Mixed response of the mediastinal and bilateral hilar lymphadenopathy as described above. 3. Multiple metastatic pulmonary nodules which are stable to decreased in size compared to the prior study. 4. Mild diffuse interstitial thickening. This could be chronic. This has a somewhat nodular appearance and therefore could represent lymphangitic spread of tumor. This bears watching on future examinations. 5. Left hepatic lobe metastasis. ACT 112: Negative or not required by law. Electronically signed by: Lamin Lal M.D. 03/22/2021 7:50 PM Diagnostic Findings EKG as per my interpretation rate 60, paced rhythm Code Status & VTE Plan VTE Prophylaxis Plan VTE Prophylaxis will be ordered: Yes
[2021-03-22] MEDS ORDERED: Heparin IV Adult Wt-Based Low-Dose *NO* Bolus Protocol IV SCH (23:45)
[2021-03-23] MEDS ORDERED: GLUCOSE 40% GEL 15 GM TUBE PO PRN (00:12)
[2021-03-23] MEDS ORDERED: PROMETHAZINE HCL 12.5 MG in SODIUM CHLORIDE 0.9% 50 ML IV PRN (00:12)
[2021-03-23] MEDS ORDERED: CARBOHYDRATES FOR HYPOGLYCEMIA PO PRN (00:12)
[2021-03-23] MEDS ORDERED: GLUCOSE 10 TABS/TUBE PO PRN (00:12)
[2021-03-23] MEDS ORDERED: GLUCAGON FOR INJ 1 MG VIAL SQ PRN (00:12)
[2021-03-23] MEDS ORDERED: traMADol HCL 50 MG TABLET PO PRN (00:12)
[2021-03-23] MEDS ORDERED: DEXTROSE 50% 50 ML SYRINGE IV PRN (00:12)
[2021-03-23] MEDS ORDERED: ACETAMINOPHEN 325 MG TAB PO PRN (00:12)
[2021-03-23] MEDS ORDERED: LACTATED RINGER'S 1,000 ML IV ONE (00:12)
[2021-03-23] MEDS ORDERED: ALBUT/IPRATROP 3MG/0.5MG NEB 3 ML VIAL NEB PRN (01:00)
[2021-03-23] MEDS ORDERED: AMIODARONE 200 MG TAB PO SCH (01:00)
[2021-03-23 01:03] LABS: Partial Thromboplastin Ratio 1.2
[2021-03-23] MEDS: METOPROLOL SUCC 25MG EXT REL TAB PO SCH ×3 (01:33→21:05)
[2021-03-23] MEDS: POTASSIUM CHLORIDE 20 MEQ in LACTATED RINGER'S 1,000 ML IV SCH (01:34)
[2021-03-23] MEDS: INSULIN ASPART 100 UNITS/ML 3 ML PEN SC SCH ×5 (01:35→21:03)
[2021-03-23] MEDS: HEPARIN SODIUM/DEXTROSE 25,000 UNITS/500 ML BAG IV SCH (01:36)
[2021-03-23 08:01] LABS: Base Excess ABG 0.6 mEq/L (-9-1.8); HCO3 ABG 24 mmol/L (19-24); Oxygen Saturation ABG 97.6 % (90-95); PCO2 ABG 34 mmHg (35-46); PO2 ABG 96 mmHg (80-95); pH ABG 7.47 (7.35-7.45)
[2021-03-23 08:02] LABS: Allen Test Pos (Pos)
[2021-03-23 08:12] LABS: INR 1.5 (0.9-1.1); Partial Thromboplastin Ratio 1.8; Prothrombin Time 14.8 Seconds (9.0-12.0)
[2021-03-23 08:13] LABS: Partial Thromboplastin Time 46.5 Seconds (21.0-31.0)
[2021-03-23 08:14] LABS: BUN Creatinine Ratio 17.7 (10-20); Calcium 8.1 mg/dl (8.5-10.1); Creatinine Clr Calc Pharmacy 105.1 ml/min; Est GFR (African American) 105.7 ml/min; Est GFR (Non-African American) 91.2 ml/min; Potassium 3.6 mmol/L (3.5-5.1)
[2021-03-23 08:15] LABS: Basophils # (auto) 0.01 K/uL (0-0.2); Basophils % (auto) 1.1 %; Eosinophils # (auto) 0.02 K/uL (0-0.5); Eosinophils % (auto) 2.2 %; Hematocrit (blood only) 30.4 % (42-52); Hemoglobin 9.9 g/dL (14.0-18.0); Immature Granulocytes # (auto) 0.01 K/uL (0.00-0.02); Immature Granulocytes % (auto) 1.1 %; Lymphocytes # (auto) 0.39 K/uL (1.2-3.4); Lymphocytes % (auto) 43.3 %; Mean Corpuscular Hemoglobin 28.8 pg (25-34); Mean Corpuscular Hgb Conc 32.6 g/dL (32-36); Mean Corpuscular Volume 88.4 fL (80-100); Mean Platelet Volume 8.2 fL (7.4-10.4); Monocytes # (auto) 0.35 K/uL (0.11-0.59); Monocytes % (auto) 38.9 %; Neutrophils # (auto) 0.12 K/uL (1.4-6.5); Neutrophils % (auto) 13.4 %; Platelet Count 131 K/uL (130-400); RDW Coefficient of Variation 17.9 % (11.5-14.5); RDW Standard Deviation 57.4 fL (36.4-46.3); Red Blood Count 3.44 M/uL (4.7-6.1); Reticulocytes # 0.14 10^6/uL (0.02-0.10)
[2021-03-23 08:16] LABS: Giant Platelets 1+
[2021-03-23 08:19] LABS: Ferritin 234.3 ng/ml (8-388)
--- NOTE | 2021-03-23 08:50 | Cardiology Consultation ---
Date of Consultation March 23, 2021 Assessment & Plan (1) Acute hypoxemic respiratory failure: (2) PAF (paroxysmal atrial fibrillation): (3) Ischemic cardiomyopathy: (4) Aortic stenosis: Patient admitted for hypoxia/respiratory failure with abnormal chest CT, possible metastatic prostate CA. However he reports progressive dyspnea x3 months, since chemotherapy. This is also around the time he was started on amiodarone for PAF. He should be taking amiodarone 200 mg - 1 tab daily, but listed as BID. Will reduce to 200 mg daily Update TSH. Normal LFT's Await pulmonary evaluation. If it is felt that amiodarone may be contributing factor, may need to discontinue and titrate beta heath. Given his underlying aortic stenosis and ischemic cardiomyopathy, will update echo as well during admission. Case to be discussed with Dr. Horvath Supervising Physician Co-Signing Physician Notes I have seen and evaluated the patient. I have reviewed the medical record and discussed the case with Mango David. I have agree with the plan as outlined. His progressive respiratory failure may be due to metastatic disease however, amiodarone may be contributing and I think we can hold this medication and titrate his beta-heath as needed. An echocardiogram is appropriate due to his clinical change in status. History of Present Illness Reason for Consultation: SOB; history of CAD; CHF; abnormal chest CT; Requesting Physician: Dr. Membreno Attending Physician: Dr. Horvath History of Present Illness Patient is a complex 80 year old male known to [facility] cardiology and follows with him Dago HIGH as an outpatient. He has a complex history includin. ASCVD 1. Status post PCI with a BMS to the mid LAD on 05/16/2016. 2. May 26, 2016 diagnostic cardiac catheterization at [facility], Dr. 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 Also, far beyond the stent, there was visible healed dissection flap, Type B, non- obstructive. 3. Status post CABG x 1 with a ABRAMS to LAD for persistent angina, May 2016. 2. Ischemic cardiomyopathy, EF 35-45% 3. Aortic valve stenosis 4. Symptomatic paroxysmal atrial fibrillation with a rapid ventricular response status post spontaneous conversion following administration of IV diltiazem, subsequent initiation of antiarrhythmic therapy on January 09, 2021 with amiodarone 5. 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 Peripheral vascular disease 7. Obstructive sleep apnea. 8. Hypertension. 9. Hyperlipidemia. Poor statin tolerance 10. Type II diabetes mellitus 11. Advanced prostate cancer. Diagnosed in 2018. Completed 40 radiation treatments on May 14, 2018. Casodex discontinued due to breast enlargement. 12. Iron deficiency anemia 13. COVID in Sep 2020 requiring hospitalization. Over the last several months, patient has undergone 3 chemotherapy treatments for metastatic prostate cancer. After each treatment, patient reports significant weakness and progressive shortness of breath. He was evaluated by PCP yesterday and found to be hypoxic on room air in the 80s. He was subsequently sent to the emergency department for evaluation and treatment. EKG demonstrated atrial pacing without acute changes. Troponin unremarkable. He denies recent symptoms of orthopnea, PND, lower extremity edema or weight gain. He denies recent chest pain. No recent need for sublingual nitro. No fever, cough, chills. He was found to have an abnormal chest CT with concerns for metastatic process in the lungs. Pulmonary has been consulted. Patient reports his symptoms have improved since supplemental O2. At time of consult, patient resting in chair quietly and comfortably. No acute distress. He reports improved shortness of breath since admission. No chest pain. No dizziness or lightheadedness. No orthopnea, PND, lower extremity edema. Allergies Allergy/AdvReac Type Severity Reaction Status Date / Time No Known Allergies Allergy Verified 03/22/21 18:40 Home Medications Medication Instructions Recorded Confirmed Type Glucosamine Chondroitin 1 cap PO BID 02/21/19 03/22/21 History aspirin 81 mg PO QAM 02/21/19 03/22/21 History glipizide 10 mg PO BID 02/21/19 03/22/21 History lisinopril 2.5 mg PO QAM 02/21/19 03/22/21 History metoprolol succinate 25 mg PO BID 02/21/19 03/22/21 History nitroglycerin [Nitrostat] 0.4 mg SUBLINGUAL DIRECTED PRN 02/21/19 03/22/21 History omeprazole 20 mg PO BID 02/21/19 03/22/21 History potassium chloride [Klor-Con M10] 10 meq PO BID 02/21/19 03/22/21 History fluocinonide 1 applic TOPICAL DAILY PRN 09/20/20 03/22/21 History ketoconazole 1 applic TOPICAL DIRECTED 09/20/20 03/22/21 History pioglitazone 45 mg PO QAM 09/20/20 03/22/21 History acetaminophen [Tylenol] 975 mg PO QID PRN 01/08/21 03/22/21 History ascorbic acid (vitamin C) 0 mg PO QAM 01/08/21 03/22/21 History cholecalciferol (vitamin D3) 0 mcg PO PM 01/08/21 03/22/21 History furosemide [Lasix] 40 mg PO QAM 01/09/21 03/22/21 History warfarin 5 mg PO QAM 01/09/21 03/22/21 History amiodarone 200 mg PO BIDM #60 tab 01/11/21 03/22/21 Rx atorvastatin 20 mg PO HS #30 tab 01/11/21 03/22/21 Rx Patient History Medical History Asthma DM2 (diabetes mellitus, type 2) DVT (deep venous thrombosis) "RLE" Dyspnea on minimal exertion History of left heart catheterization (LHC) "60% stenosis mid left anterior descending " HLD (hyperlipidemia) Hyperlipidemia Hypertension Hypoxia AL on CPAP Paroxysmal atrial fibrillation Prostate cancer (10/22/17) Systolic ejection murmur Tachy-shanita syndrome Surgical History H/O esophagogastroduodenoscopy Hx of total knee arthroplasty S/P CABG x 1 S/P cholecystectomy S/P hip replacement S/P knee replacement Family History Other No pertinent family history Social History Smoking Status: Former smoker Cigarettes Per Day: 40; Smoking End Date: 1959; Second Hand Exposure: No; Hx Alcohol Use: No Hx Substance Use: No Preferred Language: Bahraini Communication Ability: Effective Visual Impairment: No Limitations Hearing Ability: Normal Car Sander Required: No Beliefs That Will Affect Care: None marital status: Current Living Situation: Spouse Current Living Situation Comment: house Other Information That Helps Us Care for You: No Feels Safe at Home: Yes Safety Concerns: Feels Safe At This Time Assistive Devices: Cane Review of Systems Review of Systems: All systems reviewed & are unremarkable except as noted in HPI & below Physical Exam Constitutional: WD/WN, vitals as above no acute distress Eyes: PERRL, conjunctivae normal, anicteric sclerae Respiratory: normal respiratory effort Auscultation: + diminished lung sounds; no crackles and no wheezes Cardiovascular: Rate/Rhythm: regular rate and regular rhythm Heart Sounds: + murmur (III/ systolic murmur) Vessels: no JVD Extremities: no edema Gastrointestinal (Abdomen): normal bowel sounds, soft, nontender, no hepatosplenomegaly Musculoskeletal: no cyanosis or clubbing, extremities motor strength 5/5 Skin: no rashes, warm and dry Neurologic: PERRL, EOMI, accommodation nl, no face palsy, no dysarthria Psychiatric: A+Ox3, euthymic affect Results & Data ([facility]) Vital Signs (Past 12 Hours) Vital Signs Temp Pulse Pulse Resp BP BP BP 03/23/21 08:07 36.7 C 57 L 18 125/73 03/23/21 04:00 36.7 C 64 18 112/63 03/22/21 23:56 36.8 C 70 18 154/70 H 03/22/21 23:01 67 24 123/68 03/22/21 22:00 63 16 156/89 H 03/22/21 21:13 60 16 140/75 03/22/21 21:12 Pulse Ox 03/23/21 08:07 92 03/23/21 04:00 98 03/22/21 23:56 99 03/22/21 23:01 97 03/22/21 22:00 98 03/22/21 21:13 99 03/22/21 21:12 96 Laboratory Results 03/23/21 03/23/21 03/23/21 Range/Units 07:23 07:23 07:23 WBC (4.8-10.8) K/uL RBC (4.7-6.1) M/uL Hgb (14.0-18.0) g/dL Hct (42-52) % MCV (80-100) fL MCH (25-34) pg MCHC (32-36) g/dL RDW Std Deviation (36.4-46.3) fL RDW Coeff of Bradly (11.5-14.5) % Plt Count (130-400) K/uL MPV (7.4-10.4) fL Immature Gran % (Auto) % Neut % (Auto) % Lymph % (Auto) % [place] % (Auto) % Eos % (Auto) % Baso % (Auto) % Reticulocyte % (Auto) (0.5-2.0) % Neut # (Auto) (1.4-6.5) K/uL Lymph # (Auto) (1.2-3.4) K/uL [place] # (Auto) (0.11-0.59) K/uL Eos # (Auto) (0-0.5) K/uL Baso # (Auto) (0-0.2) K/uL Reticulocyte # (0.02-0.10) 10^6/uL Immature Gran # (Auto) (0.00-0.02) K/uL Giant Platelets PT 14.8 H (9.0-12.0) Seconds INR 1.5 H (0.9-1.1) APTT 46.5 H* (21.0-31.0) Seconds PTT Ratio 1.8 D-Dimer (0-500) ug/L FEU ABG pH 7.47 H (7.35-7.45) ABG pCO2 34 L (35-46) mmHg ABG pO2 96 H (80-95) mmHg ABG HCO3 24 (19-24) mmol/L ABG O2 Saturation 97.6 H (90-95) % ABG Base Excess 0.6 (-9-1.8) mEq/L Giovanni Test Pos (Pos) Barometric Pressure 734.5 mm/Hg Oxygen Given 2L Sodium (136-145) mmol/L Potassium (3.5-5.1) mmol/L Chloride (98-107) mmol/L Carbon Dioxide (21-32) mmol/L Anion Gap (3-11) BUN (7-18) mg/dl Creatinine (0.6-1.4) mg/dl Est Cr Clr Drug Dosing Est GFR ( Amer) ml/min Est GFR (Non-Af Amer) ml/min BUN/Creatinine Ratio (10-20) Glucose (70-99) mg/dl POC Glucose (70-99) mg/dl Calcium (8.5-10.1) mg/dl Magnesium (1.8-2.4) mg/dl Iron (35-175) mcg/dl TIBC (250-450) mcg/dl Transferrin (200-360) mg/dl Ferritin (8-388) ng/ml Total Bilirubin (0.2-1) mg/dl AST (15-37) U/L ALT (12-78) U/L Alkaline Phosphatase (45-117) U/L Troponin I (0-0.045) ng/ml NT-Pro-B Natriuret Pep (0-1800) pg/ml Total Protein (6.4-8.2) gm/dl Albumin (3.4-5.0) gm/dl Globulin (2.5-4.0) gm/dl Albumin/Globulin Ratio (0.9-2) Vitamin B12 Pending Folate COVID-19 Eval Order SARS-CoV-2 (PCR) (Negative) Blood Type Antibody Screen 03/23/21 03/23/21 03/23/21 Range/Units 07:23 07:23 07:23 WBC (4.8-10.8) K/uL RBC (4.7-6.1) M/uL Hgb (14.0-18.0) g/dL Hct (42-52) % MCV (80-100) fL MCH (25-34) pg MCHC (32-36) g/dL RDW Std Deviation (36.4-46.3) fL RDW Coeff of Bradly (11.5-14.5) % Plt Count (130-400) K/uL MPV (7.4-10.4) fL Immature Gran % (Auto) % Neut % (Auto) % Lymph % (Auto) % [place] % (Auto) % Eos % (Auto) % Baso % (Auto) % Reticulocyte % (Auto) (0.5-2.0) % Neut # (Auto) (1.4-6.5) K/uL Lymph # (Auto) (1.2-3.4) K/uL [place] # (Auto) (0.11-0.59) K/uL Eos # (Auto) (0-0.5) K/uL Baso # (Auto) (0-0.2) K/uL Reticulocyte # (0.02-0.10) 10^6/uL Immature Gran # (Auto) (0.00-0.02) K/uL Giant Platelets PT (9.0-12.0) Seconds INR (0.9-1.1) APTT (21.0-31.0) Seconds PTT Ratio D-Dimer (0-500) ug/L FEU ABG pH (7.35-7.45) ABG pCO2 (35-46) mmHg ABG pO2 (80-95) mmHg ABG HCO3 (19-24) mmol/L ABG O2 Saturation (90-95) % ABG Base Excess (-9-1.8) mEq/L Giovanni Test (Pos) Barometric Pressure mm/Hg Oxygen Given Sodium 139 (136-145) mmol/L Potassium 3.6 (3.5-5.1) mmol/L Chloride 109 H (98-107) mmol/L Carbon Dioxide 24 (21-32) mmol/L Anion Gap 6.0 (3-11) BUN 12 (7-18) mg/dl Creatinine 0.65 (0.6-1.4) mg/dl Est Cr Clr Drug Dosing 105.1 Est GFR ( Amer) 105.7 ml/min Est GFR (Non-Af Amer) 91.2 ml/min BUN/Creatinine Ratio 17.7 (10-20) Glucose 117 H (70-99) mg/dl POC Glucose (70-99) mg/dl Calcium 8.1 L (8.5-10.1) mg/dl Magnesium (1.8-2.4) mg/dl Iron 48 (35-175) mcg/dl TIBC 203 L (250-450) mcg/dl Transferrin 164 L (200-360) mg/dl Ferritin 234.3 (8-388) ng/ml Total Bilirubin (0.2-1) mg/dl AST (15-37) U/L ALT (12-78) U/L Alkaline Phosphatase (45-117) U/L Troponin I (0-0.045) ng/ml NT-Pro-B Natriuret Pep (0-1800) pg/ml Total Protein (6.4-8.2) gm/dl Albumin (3.4-5.0) gm/dl Globulin (2.5-4.0) gm/dl Albumin/Globulin Ratio (0.9-2) Vitamin B12 Folate Pending COVID-19 Eval Order SARS-CoV-2 (PCR) (Negative) Blood Type A Positive Antibody Screen NEGATIVE 03/23/21 03/23/21 03/23/21 Range/Units 07:23 01:28 00:36 WBC 0.90 L* (4.8-10.8) K/uL RBC 3.44 L (4.7-6.1) M/uL Hgb 9.9 L (14.0-18.0) g/dL Hct 30.4 L (42-52) % MCV 88.4 (80-100) fL MCH 28.8 (25-34) pg MCHC 32.6 (32-36) g/dL RDW Std Deviation 57.4 H (36.4-46.3) fL RDW Coeff of Bradly 17.9 H (11.5-14.5) % Plt Count 131 (130-400) K/uL MPV 8.2 (7.4-10.4) fL Immature Gran % (Auto) 1.1 % Neut % (Auto) 13.4 % Lymph % (Auto) 43.3 % [place] % (Auto) 38.9 % Eos % (Auto) 2.2 % Baso % (Auto) 1.1 % Reticulocyte % (Auto) 4.0 H (0.5-2.0) % Neut # (Auto) 0.12 L* (1.4-6.5) K/uL Lymph # (Auto) 0.39 L (1.2-3.4) K/uL [place] # (Auto) 0.35 (0.11-0.59) K/uL Eos # (Auto) 0.02 (0-0.5) K/uL Baso # (Auto) 0.01 (0-0.2) K/uL Reticulocyte # 0.14 H (0.02-0.10) 10^6/uL Immature Gran # (Auto) 0.01 (0.00-0.02) K/uL Giant Platelets 1+ PT (9.0-12.0) Seconds INR (0.9-1.1) APTT 31.0 (21.0-31.0) Seconds PTT Ratio 1.2 D-Dimer (0-500) ug/L FEU ABG pH (7.35-7.45) ABG pCO2 (35-46) mmHg ABG pO2 (80-95) mmHg ABG HCO3 (19-24) mmol/L ABG O2 Saturation (90-95) % ABG Base Excess (-9-1.8) mEq/L Giovanni Test (Pos) Barometric Pressure mm/Hg Oxygen Given Sodium (136-145) mmol/L Potassium (3.5-5.1) mmol/L Chloride (98-107) mmol/L Carbon Dioxide (21-32) mmol/L Anion Gap (3-11) BUN (7-18) mg/dl Creatinine (0.6-1.4) mg/dl Est Cr Clr Drug Dosing Est GFR ( Amer) ml/min Est GFR (Non-Af Amer) ml/min BUN/Creatinine Ratio (10-20) Glucose (70-99) mg/dl POC Glucose 146 H (70-99) mg/dl Calcium (8.5-10.1) mg/dl Magnesium (1.8-2.4) mg/dl Iron (35-175) mcg/dl TIBC (250-450) mcg/dl Transferrin (200-360) mg/dl Ferritin (8-388) ng/ml Total Bilirubin (0.2-1) mg/dl AST (15-37) U/L ALT (12-78) U/L Alkaline Phosphatase (45-117) U/L Troponin I (0-0.045) ng/ml NT-Pro-B Natriuret Pep (0-1800) pg/ml Total Protein (6.4-8.2) gm/dl Albumin (3.4-5.0) gm/dl Globulin (2.5-4.0) gm/dl Albumin/Globulin Ratio (0.9-2) Vitamin B12 Folate COVID-19 Eval Order SARS-CoV-2 (PCR) (Negative) Blood Type Antibody Screen 03/22/21 03/22/21 03/22/21 Range/Units 20:10 20:10 18:18 WBC (4.8-10.8) K/uL RBC (4.7-6.1) M/uL Hgb (14.0-18.0) g/dL Hct (42-52) % MCV (80-100) fL MCH (25-34) pg MCHC (32-36) g/dL RDW Std Deviation (36.4-46.3) fL RDW Coeff of Bradly (11.5-14.5) % Plt Count (130-400) K/uL MPV (7.4-10.4) fL Immature Gran % (Auto) % Neut % (Auto) % Lymph % (Auto) % [place] % (Auto) % Eos % (Auto) % Baso % (Auto) % Reticulocyte % (Auto) (0.5-2.0) % Neut # (Auto) (1.4-6.5) K/uL Lymph # (Auto) (1.2-3.4) K/uL [place] # (Auto) (0.11-0.59) K/uL Eos # (Auto) (0-0.5) K/uL Baso # (Auto) (0-0.2) K/uL Reticulocyte # (0.02-0.10) 10^6/uL Immature Gran # (Auto) (0.00-0.02) K/uL Giant Platelets PT (9.0-12.0) Seconds INR (0.9-1.1) APTT (21.0-31.0) Seconds PTT Ratio D-Dimer (0-500) ug/L FEU ABG pH (7.35-7.45) ABG pCO2 (35-46) mmHg ABG pO2 (80-95) mmHg ABG HCO3 (19-24) mmol/L ABG O2 Saturation (90-95) % ABG Base Excess (-9-1.8) mEq/L Giovanni Test (Pos) Barometric Pressure mm/Hg Oxygen Given Sodium 140 (136-145) mmol/L Potassium 3.8 (3.5-5.1) mmol/L Chloride 107 (98-107) mmol/L Carbon Dioxide 25 (21-32) mmol/L Anion Gap 8.0 (3-11) BUN 15 (7-18) mg/dl Creatinine 0.82 (0.6-1.4) mg/dl Est Cr Clr Drug Dosing Not Reportable Est GFR ( Amer) 96.1 ml/min Est GFR (Non-Af Amer) 82.9 ml/min BUN/Creatinine Ratio 18.7 (10-20) Glucose 122 H (70-99) mg/dl POC Glucose (70-99) mg/dl Calcium 8.8 (8.5-10.1) mg/dl Magnesium 2.2 (1.8-2.4) mg/dl Iron (35-175) mcg/dl TIBC (250-450) mcg/dl Transferrin (200-360) mg/dl Ferritin (8-388) ng/ml Total Bilirubin 0.7 (0.2-1) mg/dl AST 22 (15-37) U/L ALT 29 (12-78) U/L Alkaline Phosphatase 113 (45-117) U/L Troponin I < 0.015 (0-0.045) ng/ml NT-Pro-B Natriuret Pep 504 (0-1800) pg/ml Total Protein 6.4 (6.4-8.2) gm/dl Albumin 3.2 L (3.4-5.0) gm/dl Globulin 3.2 (2.5-4.0) gm/dl Albumin/Globulin Ratio 1.0 (0.9-2) Vitamin B12 Folate COVID-19 Eval Order Covid19 at [facility] SARS-CoV-2 (PCR) NEGATIVE (Negative) Blood Type Antibody Screen 03/22/21 03/22/21 Range/Units 18:18 18:18 WBC 1.10 L (4.8-10.8) K/uL RBC 3.86 L (4.7-6.1) M/uL Hgb 11.1 L (14.0-18.0) g/dL Hct 34.1 L (42-52) % MCV 88.3 (80-100) fL MCH 28.8 (25-34) pg MCHC 32.6 (32-36) g/dL RDW Std Deviation 57.8 H (36.4-46.3) fL RDW Coeff of Bradly 18.0 H (11.5-14.5) % Plt Count 148 (130-400) K/uL MPV 8.6 (7.4-10.4) fL Immature Gran % (Auto) 0.9 % Neut % (Auto) 14.5 % Lymph % (Auto) 46.4 % [place] % (Auto) 35.5 % Eos % (Auto) 1.8 % Baso % (Auto) 0.9 % Reticulocyte % (Auto) (0.5-2.0) % Neut # (Auto) 0.16 L* (1.4-6.5) K/uL Lymph # (Auto) 0.51 L (1.2-3.4) K/uL [place] # (Auto) 0.39 (0.11-0.59) K/uL Eos # (Auto) 0.02 (0-0.5) K/uL Baso # (Auto) 0.01 (0-0.2) K/uL Reticulocyte # (0.02-0.10) 10^6/uL Immature Gran # (Auto) 0.01 (0.00-0.02) K/uL Giant Platelets PT 14.6 H (9.0-12.0) Seconds INR 1.5 H (0.9-1.1) APTT 28.9 (21.0-31.0) Seconds PTT Ratio 1.1 D-Dimer 830 H* (0-500) ug/L FEU ABG pH (7.35-7.45) ABG pCO2 (35-46) mmHg ABG pO2 (80-95) mmHg ABG HCO3 (19-24) mmol/L ABG O2 Saturation (90-95) % ABG Base Excess (-9-1.8) mEq/L Giovanni Test (Pos) Barometric Pressure mm/Hg Oxygen Given Sodium (136-145) mmol/L Potassium (3.5-5.1) mmol/L Chloride (98-107) mmol/L Carbon Dioxide (21-32) mmol/L Anion Gap (3-11) BUN (7-18) mg/dl Creatinine (0.6-1.4) mg/dl Est Cr Clr Drug Dosing Est GFR ( Amer) ml/min Est GFR (Non-Af Amer) ml/min BUN/Creatinine Ratio (10-20) Glucose (70-99) mg/dl POC Glucose (70-99) mg/dl Calcium (8.5-10.1) mg/dl Magnesium (1.8-2.4) mg/dl Iron (35-175) mcg/dl TIBC (250-450) mcg/dl Transferrin (200-360) mg/dl Ferritin (8-388) ng/ml Total Bilirubin (0.2-1) mg/dl AST (15-37) U/L ALT (12-78) U/L Alkaline Phosphatase (45-117) U/L Troponin I (0-0.045) ng/ml NT-Pro-B Natriuret Pep (0-1800) pg/ml Total Protein (6.4-8.2) gm/dl Albumin (3.4-5.0) gm/dl Globulin (2.5-4.0) gm/dl Albumin/Globulin Ratio (0.9-2) Vitamin B12 Folate COVID-19 Eval Order SARS-CoV-2 (PCR) (Negative) Blood Type Antibody Screen Diagnostic Findings Telemetry reviewed: Atrial pacing in the 60s and 70s. No concerning arrhythmias. on admission: Atrial-paced rhythm with prolonged AV conduction Right bundle branch block Inferior infarct (cited on or before 28-MAY-2016) Abnormal ECG When compared with ECG of 14-JAN-2021 04:29, No significant change was found Chest xray on admission: IMPRESSION: 1. Persistent bibasilar linear densities suggesting scarring or atelectasis. Otherwise, no new focal lung consolidations to suggest pneumonia. 2. No change in the mediastinal lymphadenopathy and small bilateral pulmonary nodules consistent with the patient's known metastatic disease. Chest Ct report reviewed, from admission: IMPRESSION: 1. No evidence for pulmonary embolus. 2. Mixed response of the mediastinal and bilateral hilar lymphadenopathy as described above. 3. Multiple metastatic pulmonary nodules which are stable to decreased in size compared to the prior study. 4. Mild diffuse interstitial thickening. This could be chronic. This has a somewhat nodular appearance and therefore could represent lymphangitic spread of tumor. This bears watching on future examinations. 5. Left hepatic lobe metastasis. Echo report reviewed dated Oct 2020: Interpretation Summary The primary indication after review was deemed appropriate and the examination was performed. Compared to last available study, there has been no interval change. Mildly dilated LV chamber size with normal wall thickness. Severely reduced LV systolic function. Calculated LV ejection Fraction = 37% (bi-plane method of discs). There is a large size wall motion abnormality involving the septum, inferior wall, and apex with severe hypokinesis to akinesis of the segments. Grade 1 diastolic dysfunction. Moderate aortic valve stenosis is present. Mild mitral regurgitation. The estimated pulmonary artery systolic pressure is 42mm Hg.
--- NOTE | 2021-03-23 09:46 | Hospitalist Progress Note ---
Date of Service March 23, 2021 Assessment & Plan (1) Acute hypoxemic respiratory failure: Abnormal CT chest Interstitial thickening, hilar adenopathy, pulmonary nodules on CT PE Possible metastatic malignancy Prostate cancer status post radiation, on lupron q3 months and docetaxel Underlying pulmonary hypertension, PASP of 42 mmHg on recent outpatient TTE October 2020 AL on CPAP Etiologies of acute hypoxic respiratory failure likely multifactorial in the setting of conditions listed above No PE on CT angio. Continue oxygen supplementation. Ivf Embryologist recommendations appreciated. Will discuss with patient's oncologist to determine need for any biopsies. In the meantime we will continue heparin drip. Will follow-up with cardiology about resuming amiodarone SSS status post PPM History PE DVT On Coumadin which is currently on hold On hep gtt Chronic systolic heart failure Hypertension (EF 37%, TTE 2020) secondary to ischemic cardiomyopathy. CAD sp CABG, stent/ hx PVD as per records Patient appears euvolemic Continue statin Valvular heart disease (moderate aortic stenosis, mild mitral regurgitation) DM2 On oral medications, well-controlled as of recent hemoglobin A1c of January 2021 Oral antidiabetic's on hold while inpatient Manage blood glucose with insulin per protocol Chronic anemia Likely related to chronic medical problems Denied any overt bleeding. Monitor hemoglobin Leukopenia. WBC 0.9 today with absolute neutrophil count of 0.12K per microliter. No fevers for now No other sign of infection Monitor Continue medical telemetry Full code Patient's requesting updates for providers. Ms. Lucinda Lopez, contact #[phone]. Admission and Anticipated Discharge Date Admission Date: March 22, 2021 Subjective 80-year-old man with history of chronic systolic heart failure with EF of 37%, ischemic cardiomyopathy CAD status post CABG and stent, valvular heart disease, pulmonary hypertension, SSS status post pacemaker on Coumadin, hypertension, AL on BiPAP, PE/DVT, DM2 and oral medication, metastatic prostate cance who presents with exertional dyspnea and low oxygen levels for the past week. Patient seen and examined this morning. Reports exertional dyspnea, mild dry cough. Reports chronic incomplete emptying of bladder Currently on 2 L/min nasal oxygen Review of Systems Constitutional: no fever, no chills and no fatigue Eyes: no problem reported Ear, Nose, Mouth, Throat: no ear discharge, no nasal congestion and no sore throat Respiratory: + cough and + dyspnea on exertion; no chest congestion, no sputum production and no wheezing Cardiovascular: + dyspnea on exertion; no chest pain and no dyspnea Gastrointestinal: no abdominal pain, no nausea, no vomiting, no dysphagia and no constipation Genitourinary: no dysuria, no urinary incontinence and no hematuria Musculoskeletal: no back pain and no muscle weakness Neurologic: no generalized weakness and no dizziness Psychiatric: no depression and no anxiety Physical Exam Constitutional: + well hydrated and + obese; no acute distress Eyes: PERRL, conjunctivae normal, anicteric sclerae ENMT: external ear and nose normal, oropharynx normal Respiratory: normal respiratory effort, lungs clear to auscultation Cardiovascular: Rate/Rhythm: regular rate and regular rhythm Heart Sounds: + murmur Gastrointestinal (Abdomen): normal bowel sounds, soft, nontender, no hepatosplenomegaly Musculoskeletal: no cyanosis or clubbing, extremities motor strength 5/5 Neurologic: PERRL, EOMI, accommodation nl, no face palsy, no dysarthria Psychiatric: A+Ox3, euthymic affect Results & Data Results & Data ([facility]) Vital Signs (Past 12 Hours) Vital Signs Temp Pulse Pulse Resp BP BP BP 03/23/21 08:07 36.7 C 57 L 18 125/73 03/23/21 04:00 36.7 C 64 18 112/63 03/22/21 23:56 36.8 C 70 18 154/70 H 03/22/21 23:01 67 24 123/68 03/22/21 22:00 63 16 156/89 H Pulse Ox 03/23/21 08:07 92 03/23/21 04:00 98 03/22/21 23:56 99 03/22/21 23:01 97 03/22/21 22:00 98 Laboratory Results Laboratory Results - last 24 hr 03/22/21 03/22/21 03/22/21 18:18 18:18 18:18 WBC 1.10 L RBC 3.86 L Hgb 11.1 L Hct 34.1 L MCV 88.3 MCH 28.8 MCHC 32.6 RDW Std Deviation 57.8 H RDW Coeff of Bradly 18.0 H Plt Count 148 MPV 8.6 Immature Gran % (Auto) 0.9 Neut % (Auto) 14.5 Lymph % (Auto) 46.4 [place] % (Auto) 35.5 Eos % (Auto) 1.8 Baso % (Auto) 0.9 Reticulocyte % (Auto) Neut # (Auto) 0.16 L* Lymph # (Auto) 0.51 L [place] # (Auto) 0.39 Eos # (Auto) 0.02 Baso # (Auto) 0.01 Reticulocyte # Immature Gran # (Auto) 0.01 Giant Platelets PT 14.6 H INR 1.5 H APTT 28.9 PTT Ratio 1.1 D-Dimer 830 H* ABG pH ABG pCO2 ABG pO2 ABG HCO3 ABG O2 Saturation ABG Base Excess Giovanni Test Barometric Pressure Oxygen Given Sodium 140 Potassium 3.8 Chloride 107 Carbon Dioxide 25 Anion Gap 8.0 BUN 15 Creatinine 0.82 Est Cr Clr Drug Dosing Not Reportable Est GFR ( Amer) 96.1 Est GFR (Non-Af Amer) 82.9 BUN/Creatinine Ratio 18.7 Glucose 122 H POC Glucose Calcium 8.8 Magnesium 2.2 Iron TIBC Transferrin Ferritin Total Bilirubin 0.7 AST 22 ALT 29 Alkaline Phosphatase 113 Troponin I < 0.015 NT-Pro-B Natriuret Pep 504 Total Protein 6.4 Albumin 3.2 L Globulin 3.2 Albumin/Globulin Ratio 1.0 Vitamin B12 Folate COVID-19 Eval Order SARS-CoV-2 (PCR) Blood Type Antibody Screen 03/22/21 03/22/21 03/23/21 20:10 20:10 00:36 WBC RBC Hgb Hct MCV MCH MCHC RDW Std Deviation RDW Coeff of Bradly Plt Count MPV Immature Gran % (Auto) Neut % (Auto) Lymph % (Auto) [place] % (Auto) Eos % (Auto) Baso % (Auto) Reticulocyte % (Auto) Neut # (Auto) Lymph # (Auto) [place] # (Auto) Eos # (Auto) Baso # (Auto) Reticulocyte # Immature Gran # (Auto) Giant Platelets PT INR APTT 31.0 PTT Ratio 1.2 D-Dimer ABG pH ABG pCO2 ABG pO2 ABG HCO3 ABG O2 Saturation ABG Base Excess Giovanni Test Barometric Pressure Oxygen Given Sodium Potassium Chloride Carbon Dioxide Anion Gap BUN Creatinine Est Cr Clr Drug Dosing Est GFR ( Amer) Est GFR (Non-Af Amer) BUN/Creatinine Ratio Glucose POC Glucose Calcium Magnesium Iron TIBC Transferrin Ferritin Total Bilirubin AST ALT Alkaline Phosphatase Troponin I NT-Pro-B Natriuret Pep Total Protein Albumin Globulin Albumin/Globulin Ratio Vitamin B12 Folate COVID-19 Eval Order Covid19 at [facility] SARS-CoV-2 (PCR) NEGATIVE Blood Type Antibody Screen 03/23/21 03/23/21 03/23/21 01:28 07:23 07:23 WBC 0.90 L* RBC 3.44 L Hgb 9.9 L Hct 30.4 L MCV 88.4 MCH 28.8 MCHC 32.6 RDW Std Deviation 57.4 H RDW Coeff of Bradly 17.9 H Plt Count 131 MPV 8.2 Immature Gran % (Auto) 1.1 Neut % (Auto) 13.4 Lymph % (Auto) 43.3 [place] % (Auto) 38.9 Eos % (Auto) 2.2 Baso % (Auto) 1.1 Reticulocyte % (Auto) 4.0 H Neut # (Auto) 0.12 L* Lymph # (Auto) 0.39 L [place] # (Auto) 0.35 Eos # (Auto) 0.02 Baso # (Auto) 0.01 Reticulocyte # 0.14 H Immature Gran # (Auto) 0.01 Giant Platelets 1+ PT INR APTT PTT Ratio D-Dimer ABG pH ABG pCO2 ABG pO2 ABG HCO3 ABG O2 Saturation ABG Base Excess Giovanni Test Barometric Pressure Oxygen Given Sodium 139 Potassium 3.6 Chloride 109 H Carbon Dioxide 24 Anion Gap 6.0 BUN 12 Creatinine 0.65 Est Cr Clr Drug Dosing 105.1 Est GFR ( Amer) 105.7 Est GFR (Non-Af Amer) 91.2 BUN/Creatinine Ratio 17.7 Glucose 117 H POC Glucose 146 H Calcium 8.1 L Magnesium Iron 48 TIBC 203 L Transferrin 164 L Ferritin 234.3 Total Bilirubin AST ALT Alkaline Phosphatase Troponin I NT-Pro-B Natriuret Pep Total Protein Albumin Globulin Albumin/Globulin Ratio Vitamin B12 Folate COVID-19 Eval Order SARS-CoV-2 (PCR) Blood Type Antibody Screen 03/23/21 03/23/21 03/23/21 07:23 07:23 07:23 WBC RBC Hgb Hct MCV MCH MCHC RDW Std Deviation RDW Coeff of Bradly Plt Count MPV Immature Gran % (Auto) Neut % (Auto) Lymph % (Auto) [place] % (Auto) Eos % (Auto) Baso % (Auto) Reticulocyte % (Auto) Neut # (Auto) Lymph # (Auto) [place] # (Auto) Eos # (Auto) Baso # (Auto) Reticulocyte # Immature Gran # (Auto) Giant Platelets PT 14.8 H INR 1.5 H APTT 46.5 H* PTT Ratio 1.8 D-Dimer ABG pH ABG pCO2 ABG pO2 ABG HCO3 ABG O2 Saturation ABG Base Excess Giovanni Test Barometric Pressure Oxygen Given Sodium Potassium Chloride Carbon Dioxide Anion Gap BUN Creatinine Est Cr Clr Drug Dosing Est GFR ( Amer) Est GFR (Non-Af Amer) BUN/Creatinine Ratio Glucose POC Glucose Calcium Magnesium Iron TIBC Transferrin Ferritin Total Bilirubin AST ALT Alkaline Phosphatase Troponin I NT-Pro-B Natriuret Pep Total Protein Albumin Globulin Albumin/Globulin Ratio Vitamin B12 Folate > 20.00 COVID-19 Eval Order SARS-CoV-2 (PCR) Blood Type A Positive Antibody Screen NEGATIVE 03/23/21 03/23/21 07:23 07:23 WBC RBC Hgb Hct MCV MCH MCHC RDW Std Deviation RDW Coeff of Bradly Plt Count MPV Immature Gran % (Auto) Neut % (Auto) Lymph % (Auto) [place] % (Auto) Eos % (Auto) Baso % (Auto) Reticulocyte % (Auto) Neut # (Auto) Lymph # (Auto) [place] # (Auto) Eos # (Auto) Baso # (Auto) Reticulocyte # Immature Gran # (Auto) Giant Platelets PT INR APTT PTT Ratio D-Dimer ABG pH 7.47 H ABG pCO2 34 L ABG pO2 96 H ABG HCO3 24 ABG O2 Saturation 97.6 H ABG Base Excess 0.6 Giovanni Test Pos Barometric Pressure 734.5 Oxygen Given 2L Sodium Potassium Chloride Carbon Dioxide Anion Gap BUN Creatinine Est Cr Clr Drug Dosing Est GFR ( Amer) Est GFR (Non-Af Amer) BUN/Creatinine Ratio Glucose POC Glucose Calcium Magnesium Iron TIBC Transferrin Ferritin Total Bilirubin AST ALT Alkaline Phosphatase Troponin I NT-Pro-B Natriuret Pep Total Protein Albumin Globulin Albumin/Globulin Ratio Vitamin B12 763 Folate COVID-19 Eval Order SARS-CoV-2 (PCR) Blood Type Antibody Screen
[2021-03-23] MEDS: lisinopril 2.5 MG TAB PO SCH (10:09)
[2021-03-23] MEDS: PANTOprazole 40 MG TAB PO SCH ×2 (10:09→21:41)
--- NOTE | 2021-03-23 11:39 | Pulmonary Consultation ---
Date of Consultation March 23, 2021 Assessment & Plan (1) Acute hypoxemic respiratory failure: (2) Aortic stenosis: (3) Prostate CA: (4) Abnormal CT scan of lung: Impression: 80-year-old male with metastatic prostate cancer, multiple pulmonary nodules and mediastinal adenopathy, mild emphysematous changes admitted with shortness of breath which is likely multifactorial due to combinations of anemia, valvular heart disease, and potentially structural lung disease. There was concern about amiodarone however the CT scan does not appear consistent with that and I would favor continuing amiodarone if it is offering him a benefit with regards to rate control. There is no indication for b ronchoscopy at this point time. Recommendations: 1. Abnormal CT scan: The patient has multiple mediastinal lymph nodes and pulmonary nodules. I am assuming these have been biopsied previously and d emonstrated to be metastatic prostate cancer although again I do not have documentation from the patient's medical oncologist to determine if these have been biopsied or not. Regardless they have been present dating back for several months. They would be amenable to endobronchial ultrasound/transbronchial needle aspiration if a formal diagnosis is needed however I will proceed on the assumption that medical oncology is aware of these findings given the fact that they have been present for over 3 months and have been addressed in the outpatient setting. 2. Anemia work-up and management per primary service. 3. Reviewed cardiology notes. I do not think the amiodarone is necessarily contributing to the patient's dyspnea and he may do better with rate control. Will defer to them as to whether or not the medication needs to be continued but I would not recommend discontinuing it from a pulmonary standpoint at this time. He should continue to be followed with pulmonary function tests. I am assuming that these were conducted prior to initiation of amiodarone however again I do not have results available to review in our electronic medical record. Would recommend screening PFTs including diffusion capacity as an outpatient when the patient is dismissed from the hospital and in a clinically stable state. 4. No anticipation of additional pulmonary procedures. The patient can eat and Coumadin can be restarted or other therapeutic anticoagulation as indicated by the patient's primary admitting service. 5. Hypoxemia: The patient may benefit from supplemental oxygen in the outpatient setting. Recommend assessment with two-step prior to discharge and coordination of supplemental oxygen therapy if the patient qualifies. 6. Sleep disordered breathing: Recommend the patient continue CPAP at his home settings. Again I do not have his sleep study results or compliance data to review. He can follow-up with whichever provider was managing this in the outpatient setting. 7. Given his widely metastatic disease, consultation with palliative care may be appropriate. I remain available to assist as needed with this patient. Feel free to contact us with additional respiratory questions. Will follow peripherally at this time. History of Present Illness Attending Physician: Violetta Membreno MD History of Present Illness Asked by the hospitalist to evaluate this patient with shortness of breath and an abnormal CT scan. History is obtained from review the electronic medical record as well as discussion with the patient. This 80-year-old male has a history of metastatic prostate cancer and is currently on androgen ablation therapy. He is followed by the hematology clinic at [facility] but unfortunately I do not have any other clinical notes to review. He has a history of coronary disease as well as aortic stenosis. About 3 months ago he developed paroxysmal atrial fibrillation was placed on amiodarone therapy. He was being seen by his primary care provider yesterday and was noted to be hypoxemic with shortness of breath which prompted return to the emergency room. T angiogram in the emergency room showed no filling defects concerning for thromboembolic disease however there were multiple noncalcified subpleural p ulmonary nodules identified as well as a right suprahilar mass. This was present on prior imaging from 3 months ago. Discharge summary indicates he was to follow-up with medical oncology. Patient denies PND orthopnea. He states he is breathing fine as long as he sitting still. Its really with exertion that he has more problems. He does state that he feels better with the oxygen. Allergies Allergy/AdvReac Type Severity Reaction Status Date / Time No Known Allergies Allergy Verified 03/22/21 18:40 Home Medications Medication Instructions Recorded Confirmed Type Glucosamine Chondroitin 1 cap PO BID 02/21/19 03/22/21 History aspirin 81 mg PO QAM 02/21/19 03/22/21 History glipizide 10 mg PO BID 02/21/19 03/22/21 History lisinopril 2.5 mg PO QAM 02/21/19 03/22/21 History metoprolol succinate 25 mg PO BID 02/21/19 03/22/21 History nitroglycerin [Nitrostat] 0.4 mg SUBLINGUAL DIRECTED PRN 02/21/19 03/22/21 History omeprazole 20 mg PO BID 02/21/19 03/22/21 History potassium chloride [Klor-Con M10] 10 meq PO BID 02/21/19 03/22/21 History fluocinonide 1 applic TOPICAL DAILY PRN 09/20/20 03/22/21 History ketoconazole 1 applic TOPICAL DIRECTED 09/20/20 03/22/21 History pioglitazone 45 mg PO QAM 09/20/20 03/22/21 History acetaminophen [Tylenol] 975 mg PO QID PRN 01/08/21 03/22/21 History ascorbic acid (vitamin C) 0 mg PO QAM 01/08/21 03/22/21 History cholecalciferol (vitamin D3) 0 mcg PO PM 01/08/21 03/22/21 History furosemide [Lasix] 40 mg PO QAM 01/09/21 03/22/21 History warfarin 5 mg PO QAM 01/09/21 03/22/21 History amiodarone 200 mg PO BIDM #60 tab 01/11/21 03/22/21 Rx atorvastatin 20 mg PO HS #30 tab 01/11/21 03/22/21 Rx Patient History Medical History Asthma DM2 (diabetes mellitus, type 2) DVT (deep venous thrombosis) "RLE" Dyspnea on minimal exertion History of left heart catheterization (LHC) "60% stenosis mid left anterior descending " HLD (hyperlipidemia) Hyperlipidemia Hypertension Hypoxia AL on CPAP Paroxysmal atrial fibrillation Prostate cancer (10/22/17) Systolic ejection murmur Tachy-shanita syndrome Surgical History H/O esophagogastroduodenoscopy Hx of total knee arthroplasty S/P CABG x 1 S/P cholecystectomy S/P hip replacement S/P knee replacement Family History Other No pertinent family history Social History Smoking Status: Former smoker Cigarettes Per Day: 40; Smoking End Date: 1959; Second Hand Exposure: No; Hx Alcohol Use: No Hx Substance Use: No Preferred Language: Cymro Communication Ability: Effective Visual Impairment: No Limitations Hearing Ability: Normal Twist Tester Required: No Beliefs That Will Affect Care: None marital status: Current Living Situation: Spouse Current Living Situation Comment: house Other Information That Helps Us Care for You: No Feels Safe at Home: Yes Safety Concerns: Feels Safe At This Time Assistive Devices: Cane Review of Systems Review of Systems: All systems reviewed & are unremarkable except as noted in HPI & below Physical Exam Constitutional: + well hydrated and + obese; no acute distress Eyes: PERRL, conjunctivae normal, anicteric sclerae ENMT: external ear and nose normal, oropharynx normal Respiratory: normal respiratory effort, lungs clear to auscultation Cardiovascular: Rate/Rhythm: regular rate and regular rhythm Heart Sounds: + murmur Gastrointestinal (Abdomen): normal bowel sounds, soft, nontender, no hepatosplenomegaly Musculoskeletal: no cyanosis or clubbing, extremities motor strength 5/5 Neurologic: PERRL, EOMI, accommodation nl, no face palsy, no dysarthria Psychiatric: A+Ox3, euthymic affect Results & Data Results & Data ([facility]) Vital Signs (Past 12 Hours) Vital Signs Temp Pulse Resp BP BP Pulse Ox 03/23/21 08:07 36.7 C 57 L 18 125/73 92 03/23/21 04:00 36.7 C 64 18 112/63 98 03/22/21 23:56 36.8 C 70 18 154/70 H 99 Laboratory Results 03/23/21 07:23 03/23/21 07:23 Blood gas showed a pH 7.47 with a PCO2 of 34 and a PO2 of 96 Troponin negative BNP 595 Diagnostic Findings Imaging studies were independently reviewed. CHEST CTA for PULMONARY ARTERIES CT DOSE: 721.09 mGy.cm HISTORY: Dyspnea. Assess for pulmonary embolus. TECHNIQUE: Multiaxial CT images of the chest were performed following the intr avenous administration of contrast to evaluate the pulmonary arteries. Maximal intensity projection images were also obtained. A dose lowering technique was utilized adhering to the principles of ALARA. COMPARISON STUDY: Chest CTA 01/13/2021. FINDINGS: There is again noted mediastinal and bilateral hilar lymphadenopathy. This demonstrates a mixed response compared to the prior study with slight d ecrease in size in size in the AP window and bilateral hilar lymphadenopathy. There has been slight increase in size in the right paratracheal lymphadenopathy. Dominant right paratracheal lymph node measures 3.8 x 2.9 cm, previously measuring 3.2 x 2.7 cm. A left hepatic lobe mass is better apprecia bryan on this study. This measures 3.6 cm and is consistent with metastatic disease. The visualized adrenal glands and spleen are unremarkable. There is a partially calcified 1.2 cm right subhepatic nodule on image 129 of series 2. Stable mild thickening at the distal esophagus. Left-sided pacemaker is again noted. Mild bilateral gynecomastia. No pleural or pericardial effusions. The heart is borderline enlarged. This remains unchanged. Mild calcified plaque within the normal caliber thoracic aorta. No filling defects within the pulmonary arteries to suggest pulmonary embolus. There are poststernotomy changes. No pneumothorax. Mass effect/narrowing of the right middle and lower lobe bronchi has almost completely resolved. Mild diffuse interstitial thickening, unchanged. This has a subtle nodular appearance which could be chronic. Lymphangitic spread of tumor is considered less likely but not entirely excluded. Multiple bilateral scattered pulmonary nodules are again noted and are stable to decreased in size compared to the prior study. Bibasilar linear densities favor subsegmental atelectasis. IMPRESSION: 1. No evidence for pulmonary embolus. 2. Mixed response of the mediastinal and bilateral hilar lymphadenopathy as described above. 3. Multiple metastatic pulmonary nodules which are stable to decreased in size compared to the prior study. 4. Mild diffuse interstitial thickening. This could be chronic. This has a somewhat nodular appearance and therefore could represent lymphangitic spread of tumor. This bears watching on future examinations. 5. Left hepatic lobe metastasis. PG Care Time/CCT Total # of Minutes Spent Total Time Spent with Patient: Total time spent is greater than 50% in coordination of care (as documented) at patient's floor/unit and/or counseling patient: Coding Level of Care Code 88047 Inpt Consult Level 5 Diagnoses Acute hypoxemic respiratory failure J96.01 Aortic stenosis I35.0 Prostate CA C61 Abnormal CT scan of lung R91.8
[2021-03-23] MEDS: ATORVASTATIN 20 MG TAB PO SCH (21:41)
[2021-03-24] MEDS: POTASSIUM CHLORIDE 20 MEQ in LACTATED RINGER'S 1,000 ML IV SCH (01:43)
[2021-03-24] MEDS: HEPARIN SODIUM/DEXTROSE 25,000 UNITS/500 ML BAG IV SCH (01:43)
[2021-03-24 07:21] LABS: Hematocrit (blood only) 30.8 % (42-52); Mean Corpuscular Hemoglobin 28.6 pg (25-34); Mean Corpuscular Hgb Conc 32.5 g/dL (32-36); Mean Platelet Volume 8.3 fL (7.4-10.4); Platelet Count 132 K/uL (130-400); RDW Coefficient of Variation 17.8 % (11.5-14.5); RDW Standard Deviation 57.2 fL (36.4-46.3); White Blood Count 1.02 K/uL (4.8-10.8)
[2021-03-24 07:51] LABS: INR 1.4 (0.9-1.1); Partial Thromboplastin Ratio 1.8; Prothrombin Time 13.5 Seconds (9.0-12.0)
[2021-03-24 07:57] LABS: BUN Creatinine Ratio 14.1 (10-20); Calcium 8.3 mg/dl (8.5-10.1); Creatinine Clr Calc Pharmacy 82.4 ml/min; Est GFR (African American) 96.1 ml/min; Est GFR (Non-African American) 82.9 ml/min; Magnesium 2.2 mg/dl (1.8-2.4); Potassium 3.8 mmol/L (3.5-5.1)
[2021-03-24 07:59] LABS: Basophils # (auto) 0.01 K/uL (0-0.2); Eosinophils # (auto) 0.01 K/uL (0-0.5); Immature Granulocytes # (auto) 0.01 K/uL (0.00-0.02); Lymphocytes # (auto) 0.46 K/uL (1.2-3.4); Lymphocytes % (auto) 45.1 %; Monocytes # (auto) 0.28 K/uL (0.11-0.59); Monocytes % (auto) 27.5 %; Neutrophils # (auto) 0.25 K/uL (1.4-6.5); Neutrophils % (auto) 24.4 %
[2021-03-24 08:08] LABS: Phosphorus 3.2 mg/dl (2.5-4.9); Thyroid Stimulating Hormone 0.487 uIu/ml (0.300-4.500)
[2021-03-24 08:21] LABS: Partial Thromboplastin Time 47.7 Seconds (21.0-31.0)
--- NOTE | 2021-03-24 08:36 | Cardiology Progress Note ---
Date of Service March 24, 2021 Assessment & Plan (1) Acute hypoxemic respiratory failure: (2) PAF (paroxysmal atrial fibrillation): (3) Ischemic cardiomyopathy: (4) Aortic stenosis: Patient admitted for hypoxia/respiratory failure with abnormal chest CT, possible metastatic prostate CA. Pulmonology notes reviewed. Amiodarone likely NOT contributing to his dyspnea and abnormal chest CT per pulm. Will resume amiodarone 200 mg daily. normal TSH and LFT's this admission It is recommended he have full PFT's as outpatient with diffusion capacity for screening purposes once respiratory status has improved and at baseline. He had updated echo which demonstrated stable findings from outpatient echo in Oct 2020 with moderately reduced LVEF at 35-40%, apical and septal hypokinesis, normal RV function and moderate . He will continue current medications, including amiodarone 200 mg daily at this time, and other home meds including lisinopril, metoprolol succinate 25 mg daily, ASA and atorvastatin. Case discussed with Dr. Horvath Admission and Anticipated Discharge Date Admission Date: March 22, 2021 Supervising Physician Co-Signing Physician Notes I have seen and evaluated the patient. I have reviewed the medical record and discussed the case with Ms. Hernandez. Patient is to have a bronchoscopy either today or tomorrow. Otherwise he is stable from a cardiac standpoint. Subjective Patient resting in bed comfortably this morning. He reports that shortness of breath has improved from admission but admits that he has been sedentary and not very active to "test his symptoms". he denies worsening cough. no edema. No dizziness, syncope or near syncope. no fever or chills. No chest pain. Review of Systems Review of Systems: All systems reviewed & are unremarkable except as noted in HPI & below Physical Exam Constitutional: WD/WN, vitals as above no acute distress Eyes: PERRL, conjunctivae normal, anicteric sclerae Respiratory: normal respiratory effort Auscultation: + diminished lung sounds; no crackles and no wheezes Cardiovascular: Rate/Rhythm: regular rate and regular rhythm Heart Sounds: + murmur (III/ systolic murmur) Vessels: no JVD Extremities: no edema Gastrointestinal (Abdomen): normal bowel sounds, soft, nontender, no hepatosplenomegaly Musculoskeletal: no cyanosis or clubbing, extremities motor strength 5/5 Skin: no rashes, warm and dry Neurologic: PERRL, EOMI, accommodation nl, no face palsy, no dysarthria Psychiatric: A+Ox3, euthymic affect Results & Data ([facility]) Vital Signs (Past 12 Hours) Vital Signs Temp Pulse Pulse Resp BP Pulse Ox 03/24/21 08:00 36.8 C 62 18 130/69 96 03/24/21 03:00 36.7 C 66 16 100/63 98 03/24/21 01:00 75 03/23/21 23:51 36.9 C 71 18 115/75 96 Laboratory Results 03/24/21 03/24/21 03/24/21 Range/Units 07:20 07:01 07:01 WBC 1.02 L (4.8-10.8) K/uL RBC 3.50 L (4.7-6.1) M/uL Hgb 10.0 L (14.0-18.0) g/dL Hct 30.8 L (42-52) % MCV 88.0 (80-100) fL MCH 28.6 (25-34) pg MCHC 32.5 (32-36) g/dL RDW Std Deviation 57.2 H (36.4-46.3) fL RDW Coeff of Bradly 17.8 H (11.5-14.5) % Plt Count 132 (130-400) K/uL MPV 8.3 (7.4-10.4) fL Immature Gran % (Auto) 1.0 % Neut % (Auto) 24.4 % Lymph % (Auto) 45.1 % Cedar % (Auto) 27.5 % Eos % (Auto) 1.0 % Baso % (Auto) 1.0 % Neut # (Auto) 0.25 L* (1.4-6.5) K/uL Lymph # (Auto) 0.46 L (1.2-3.4) K/uL Cedar # (Auto) 0.28 (0.11-0.59) K/uL Eos # (Auto) 0.01 (0-0.5) K/uL Baso # (Auto) 0.01 (0-0.2) K/uL Immature Gran # (Auto) 0.01 (0.00-0.02) K/uL Haptoglobin PT (9.0-12.0) Seconds INR (0.9-1.1) APTT (21.0-31.0) Seconds PTT Ratio Sodium 139 (136-145) mmol/L Potassium 3.8 (3.5-5.1) mmol/L Chloride 108 H (98-107) mmol/L Carbon Dioxide 25 (21-32) mmol/L Anion Gap 6.0 (3-11) BUN 12 (7-18) mg/dl Creatinine 0.82 (0.6-1.4) mg/dl Est Cr Clr Drug Dosing 82.4 ml/min Est GFR ( Amer) 96.1 ml/min Est GFR (Non-Af Amer) 82.9 ml/min BUN/Creatinine Ratio 14.1 (10-20) Glucose 163 H (70-99) mg/dl POC Glucose 165 H (70-99) mg/dl Calcium 8.3 L (8.5-10.1) mg/dl Phosphorus 3.2 (2.5-4.9) mg/dl Magnesium 2.2 (1.8-2.4) mg/dl Lactate Dehydrogenase (87-241) U/L TSH 0.487 (0.300-4.500) uIu/ml 03/24/21 03/23/21 03/23/21 Range/Units 07:01 20:38 16:30 WBC (4.8-10.8) K/uL RBC (4.7-6.1) M/uL Hgb (14.0-18.0) g/dL Hct (42-52) % MCV (80-100) fL MCH (25-34) pg MCHC (32-36) g/dL RDW Std Deviation (36.4-46.3) fL RDW Coeff of Bradly (11.5-14.5) % Plt Count (130-400) K/uL MPV (7.4-10.4) fL Immature Gran % (Auto) % Neut % (Auto) % Lymph % (Auto) % Cedar % (Auto) % Eos % (Auto) % Baso % (Auto) % Neut # (Auto) (1.4-6.5) K/uL Lymph # (Auto) (1.2-3.4) K/uL Cedar # (Auto) (0.11-0.59) K/uL Eos # (Auto) (0-0.5) K/uL Baso # (Auto) (0-0.2) K/uL Immature Gran # (Auto) (0.00-0.02) K/uL Haptoglobin PT 13.5 H (9.0-12.0) Seconds INR 1.4 H (0.9-1.1) APTT 47.7 H* (21.0-31.0) Seconds PTT Ratio 1.8 Sodium (136-145) mmol/L Potassium (3.5-5.1) mmol/L Chloride (98-107) mmol/L Carbon Dioxide (21-32) mmol/L Anion Gap (3-11) BUN (7-18) mg/dl Creatinine (0.6-1.4) mg/dl Est Cr Clr Drug Dosing ml/min Est GFR ( Amer) ml/min Est GFR (Non-Af Amer) ml/min BUN/Creatinine Ratio (10-20) Glucose (70-99) mg/dl POC Glucose 82 166 H (70-99) mg/dl Calcium (8.5-10.1) mg/dl Phosphorus (2.5-4.9) mg/dl Magnesium (1.8-2.4) mg/dl Lactate Dehydrogenase (87-241) U/L TSH (0.300-4.500) uIu/ml 03/23/21 03/23/21 03/23/21 Range/Units 15:25 15:24 11:13 WBC (4.8-10.8) K/uL RBC (4.7-6.1) M/uL Hgb (14.0-18.0) g/dL Hct (42-52) % MCV (80-100) fL MCH (25-34) pg MCHC (32-36) g/dL RDW Std Deviation (36.4-46.3) fL RDW Coeff of Bradly (11.5-14.5) % Plt Count (130-400) K/uL MPV (7.4-10.4) fL Immature Gran % (Auto) % Neut % (Auto) % Lymph % (Auto) % Cedar % (Auto) % Eos % (Auto) % Baso % (Auto) % Neut # (Auto) (1.4-6.5) K/uL Lymph # (Auto) (1.2-3.4) K/uL Cedar # (Auto) (0.11-0.59) K/uL Eos # (Auto) (0-0.5) K/uL Baso # (Auto) (0-0.2) K/uL Immature Gran # (Auto) (0.00-0.02) K/uL Haptoglobin Pending PT (9.0-12.0) Seconds INR (0.9-1.1) APTT (21.0-31.0) Seconds PTT Ratio Sodium (136-145) mmol/L Potassium (3.5-5.1) mmol/L Chloride (98-107) mmol/L Carbon Dioxide (21-32) mmol/L Anion Gap (3-11) BUN (7-18) mg/dl Creatinine (0.6-1.4) mg/dl Est Cr Clr Drug Dosing ml/min Est GFR ( Amer) ml/min Est GFR (Non-Af Amer) ml/min BUN/Creatinine Ratio (10-20) Glucose (70-99) mg/dl POC Glucose 147 H (70-99) mg/dl Calcium (8.5-10.1) mg/dl Phosphorus (2.5-4.9) mg/dl Magnesium (1.8-2.4) mg/dl Lactate Dehydrogenase 271 H (87-241) U/L TSH (0.300-4.500) uIu/ml Diagnostic Findings Telemetry reviewed: Sinus rhythm and with intermittent pacing in the 60s. Echo results reviewed: Moderately reduced ejection fraction at 35 to 40%. RV systolic function is normal. Septal and apical hypokinesis noted. Moderate aortic stenosis. Stable from prior echo results in October 2020 as an outpatient. Medications Administered Current Inpatient Medications Acetaminophen (Acetaminophen 325 Mg Tab) 650 mg PO Q4H PRN PRN Reason: Pain or Fever Stop: 04/22/21 00:11 Albuterol (Albut/Ipratrop 3mg/0.5mg Neb 3 Ml Vial) 3 ml NEB Q2R PRN PRN Reason: Wheezing Stop: 04/22/21 00:59 Amiodarone HCl (Amiodarone 200 Mg Tab) 200 mg PO QAM KENDRICK Stop: 04/23/21 08:59 Last Admin: 03/24/21 10:10 Dose: 200 mg Documented by: Atorvastatin Calcium (Atorvastatin 20 Mg Tab) 20 mg PO HS [facility] Stop: 04/22/21 20:59 Last Admin: 03/23/21 21:41 Dose: 20 mg Documented by: Dextrose (Dextrose 50% 50 Ml Syringe) 25 - 50 ml IV UD PRN; Protocol PRN Reason: Hypoglycemia Protocol Stop: 04/22/21 00:11 Glucagon (Glucagon For Inj 1 Mg Vial) 1 mg SQ UD PRN; Protocol PRN Reason: Hypoglycemia Protocol Stop: 04/22/21 00:11 Glucose (Glucose 10 Tabs/Tube) 4 - 8 tabs PO UD PRN; Protocol PRN Reason: Hypoglycemia Protocol Stop: 04/22/21 00:11 Glucose (Glucose 40% Gel 15 Gm Tube) 15 - 30 gm PO UD PRN; Protocol PRN Reason: Hypoglycemia Protocol Stop: 04/22/21 00:11 Heparin Sodium/Dextrose (Heparin Sodium/Dextrose) 25,000 units in 500 mls @ 20 mls/hr IV .Q24H KENDRICK; Protocol Stop: 04/21/21 23:44 Last Admin: 03/24/21 01:43 Dose: 1,000 units/hr, 20 mls/hr Documented by: Promethazine HCl 12.5 mg/ (Sodium Chloride) 50.5 mls @ 202 mls/hr IV Q6H PRN PRN Reason: Nausea And Vomiting Stop: 04/22/21 00:11 Potassium Chloride 20 meq/ (Lactated Ringer's) 1,010 mls @ 40 mls/hr IV .Q24H KENDRICK Stop: 04/22/21 00:44 Last Admin: 03/24/21 01:43 Dose: 40 mls/hr Documented by: Insulin Aspart (Insulin Aspart 100 Units/Ml 3 Ml Pen) 0 units SC ACHS [facility] Stop: 04/22/21 00:29 Last Admin: 03/24/21 10:03 Dose: 4 units Documented by: Lisinopril (Lisinopril 2.5 Mg Tab) 2.5 mg PO QAM [facility] Stop: 04/22/21 08:59 Last Admin: 03/24/21 10:08 Dose: 2.5 mg Documented by: Metoprolol Succinate (Metoprolol Succ 25mg Ext Rel Tab) 25 mg PO BID [facility] Stop: 04/22/21 00:59 Last Admin: 03/24/21 10:09 Dose: 25 mg Documented by: Miscellaneous (Carbohydrates For Hypoglycemia ) 15 - 30 gm PO UD PRN PRN Reason: Hypoglycemia Protocol Stop: 04/22/21 00:11 Pantoprazole Sodium (Pantoprazole 40 Mg Tab) 40 mg PO BID [facility]; Protocol Stop: 04/22/21 08:59 Last Admin: 03/24/21 10:11 Dose: 40 mg Documented by: Tramadol HCl (Tramadol Hcl 50 Mg Tablet) 25 mg PO Q4H PRN PRN Reason: Pain Stop: 04/22/21 00:11
--- NOTE | 2021-03-24 08:56 | Hospitalist Progress Note ---
Date of Service March 24, 2021 Assessment & Plan (1) Acute hypoxemic respiratory failure: Abnormal CT chest Interstitial thickening, hilar adenopathy, pulmonary nodules on CT PE Possible metastatic malignancy Prostate cancer status post radiation, on lupron q3 months and docetaxel Underlying pulmonary hypertension, PASP of 42 mmHg on recent outpatient TTE October 2020 AL on CPAP Etiologies of acute hypoxic respiratory failure likely multifactorial in the setting of conditions listed above No PE on CT angio. Wean off oxygen. Will need ambulatory pulse ox prior to dc Discussed with Dr Contreras, patient's oncologist yesterday. He reported pulmonary nodules and lymphadenopathy has had been presumed versus metastatic but they have not had a diagnostic biopsy and recommendation to get that if possible. Pull Over Machine Operator plan to possibly get this if possible while inpatient. If not, patient will need to follow-up with pulmonology outpatient for that. SSS status post PPM History PE DVT On Coumadin which is currently on hold for possible bronchoscopy On hep gtt Chronic systolic heart failure Hypertension (EF 37%, TTE 2020) secondary to ischemic cardiomyopathy. CAD sp CABG, stent/ hx PVD as per records Patient appears euvolemic Continue statin Valvular heart disease (moderate aortic stenosis, mild mitral regurgitation) Echo findings remain stable. Gui Developer recommendations appreciated Continue amiodarone, lisinopril, metoprolol succinate DM2 On oral medications, well-controlled as of recent hemoglobin A1c of January 2021 Oral antidiabetic's on hold while inpatient Manage blood glucose with insulin per protocol Chronic anemia Likely related to chronic medical problems Denied any overt bleeding. Monitor hemoglobin Leukopenia. WBC 0.1.02 today No fevers for now No other sign of infection Monitor Discussed this with Dr. Hilario yesterday. Recommended giving Neupogen. Neupogen ordered. Continue medical telemetry Full code Patient's requesting updates for providers. Ms. Lucinda Lopez, contact #[phone]. Admission and Anticipated Discharge Date Admission Date: March 22, 2021 Subjective 80-year-old man with history of chronic systolic heart failure with EF of 37%, ischemic cardiomyopathy CAD status post CABG and stent, valvular heart disease, pulmonary hypertension, SSS status post pacemaker on Coumadin, hypertension, AL on BiPAP, PE/DVT, DM2 and oral medication, metastatic prostate cance who presents with exertional dyspnea and low oxygen levels for the past week. Patient seen and examined this morning. Reports only mild dry cough. Reports chronic incomplete emptying of bladder Currently on 2 L/min nasal oxygen Review of Systems Review of Systems: All systems reviewed & are unremarkable except as noted in Subjective Physical Exam Constitutional: + well hydrated and + obese; no acute distress Eyes: PERRL, conjunctivae normal, anicteric sclerae ENMT: external ear and nose normal, oropharynx normal Respiratory: normal respiratory effort, lungs clear to auscultation Cardiovascular: Rate/Rhythm: regular rate and regular rhythm Heart Sounds: + murmur Gastrointestinal (Abdomen): normal bowel sounds, soft, nontender, no hepatosplenomegaly Musculoskeletal: no cyanosis or clubbing, extremities motor strength 5/5 Neurologic: PERRL, EOMI, accommodation nl, no face palsy, no dysarthria Psychiatric: A+Ox3, euthymic affect Results & Data Results & Data ([facility]) Vital Signs (Past 12 Hours) Vital Signs Temp Pulse Pulse Resp BP Pulse Ox 03/24/21 08:00 36.8 C 62 18 130/69 96 03/24/21 03:00 36.7 C 66 16 100/63 98 03/24/21 01:00 75 03/23/21 23:51 36.9 C 71 18 115/75 96 Laboratory Results Abnormal lab results 03/23/21 03/23/21 03/23/21 Range/Units 11:13 15:25 16:30 WBC (4.8-10.8) K/uL RBC (4.7-6.1) M/uL Hgb (14.0-18.0) g/dL Hct (42-52) % RDW Std Deviation (36.4-46.3) fL RDW Coeff of Bradly (11.5-14.5) % Neut # (Auto) (1.4-6.5) K/uL Lymph # (Auto) (1.2-3.4) K/uL PT (9.0-12.0) Seconds INR (0.9-1.1) APTT (21.0-31.0) Seconds Chloride (98-107) mmol/L Glucose (70-99) mg/dl POC Glucose 147 H 166 H (70-99) mg/dl Calcium (8.5-10.1) mg/dl Lactate Dehydrogenase 271 H (87-241) U/L 03/24/21 03/24/21 03/24/21 Range/Units 07:01 07:01 07:01 WBC 1.02 L (4.8-10.8) K/uL RBC 3.50 L (4.7-6.1) M/uL Hgb 10.0 L (14.0-18.0) g/dL Hct 30.8 L (42-52) % RDW Std Deviation 57.2 H (36.4-46.3) fL RDW Coeff of Bradly 17.8 H (11.5-14.5) % Neut # (Auto) 0.25 L* (1.4-6.5) K/uL Lymph # (Auto) 0.46 L (1.2-3.4) K/uL PT 13.5 H (9.0-12.0) Seconds INR 1.4 H (0.9-1.1) APTT 47.7 H* (21.0-31.0) Seconds Chloride 108 H (98-107) mmol/L Glucose 163 H (70-99) mg/dl POC Glucose (70-99) mg/dl Calcium 8.3 L (8.5-10.1) mg/dl Lactate Dehydrogenase (87-241) U/L 03/24/21 Range/Units 07:20 WBC (4.8-10.8) K/uL RBC (4.7-6.1) M/uL Hgb (14.0-18.0) g/dL Hct (42-52) % RDW Std Deviation (36.4-46.3) fL RDW Coeff of Bradly (11.5-14.5) % Neut # (Auto) (1.4-6.5) K/uL Lymph # (Auto) (1.2-3.4) K/uL PT (9.0-12.0) Seconds INR (0.9-1.1) APTT (21.0-31.0) Seconds Chloride (98-107) mmol/L Glucose (70-99) mg/dl POC Glucose 165 H (70-99) mg/dl Calcium (8.5-10.1) mg/dl Lactate Dehydrogenase (87-241) U/L
[2021-03-24] MEDS ORDERED: AMIODARONE 200 MG TAB PO SCH (09:00)
[2021-03-24] MEDS ORDERED: FILGRASTIM 480 MCG/1.6 ML VIAL SQ ONE (09:01)
--- NOTE | 2021-03-24 09:21 | Pulmonology Progress Note ---
Date of Service March 24, 2021 Assessment & Plan (1) Acute hypoxemic respiratory failure: (2) Aortic stenosis: (3) Prostate CA: (4) Abnormal CT scan of lung: Impression: 80-year-old male with metastatic prostate cancer, multiple pulmonary nodules and mediastinal adenopathy, mild emphysematous changes admitted with shortness of breath which is likely multifactorial due to combinations of anemia, valvular heart disease, and potentially structural lung disease. There was concern about amiodarone however the CT scan does not appear consistent with that and I would favor continuing amiodarone if it is offering him a benefit with regards to rate control. There is no indication for bron choscopy at this point time. Recommendations: 1. Abnormal CT scan: The patient has multiple mediastinal lymph nodes and pulmonary nodules. Primary service discussed with oncology and apparently these are presumed to be metastatic lesions but have never been biopsied. It is somewhat unusual for prostate cancer to metastasize to mediastinal lymph nodes and because subpleural pulmonary nodules. They have requested biopsy. He will be set up for endobronchial ultrasound with transbronchial needle aspiration once available. After reviewing the schedule with respiratory therapy today, it does not appear that the procedure can be conducted today due to staffing issues. We will set him up for tomorrow and go from there. 2. Anemia work-up and management per primary service. 3. Reviewed cardiology notes. I do not think the amiodarone is necessarily contributing to the patient's dyspnea and he may do better with rate control. Will defer to them as to whether or not the medication needs to be continued but I would not recommend discontinuing it from a pulmonary standpoint at this time. He should continue to be followed with pulmonary function tests. I am assuming that these were conducted prior to initiation of amiodarone however again I do not have results available to review in our electronic medical record. Would recommend screening PFTs including diffusion capacity as an outpatient when the patient is dismissed from the hospital and in a clinically stable state. 4. Hypoxemia: The patient may benefit from supplemental oxygen in the outpatient setting. Recommend assessment with two-step prior to discharge and coordination of supplemental oxygen therapy if the patient qualifies. 5. Sleep disordered breathing: Recommend the patient continue CPAP at his home settings. Again I do not have his sleep study results or compliance data to review. He can follow-up with whichever provider was managing this in the outpatient setting. We will follow up with bronchoscopy once it is able to be performed. If the patient wishes to be dismissed from the hospital, bronchoscopy could certainly be performed in the outpatient setting. He does not require continued inpatient stay from my perspective to get this done. Admission and Anticipated Discharge Date Admission Date: March 22, 2021 Subjective Patient without complaint this morning. He feels that he is doing reasonably well but he is not really active so is not really noted any shortness of breath. No chest pain palpitations cough or sputum production. No syncope or presyncope. No fevers chills or night sweats. Review of Systems Review of Systems: All systems reviewed & are unremarkable except as noted in HPI & below Physical Exam Constitutional: + well hydrated and + obese; no acute distress Eyes: PERRL, conjunctivae normal, anicteric sclerae ENMT: external ear and nose normal, oropharynx normal Mallampati Class: III Respiratory: normal respiratory effort, lungs clear to auscultation Cardiovascular: Rate/Rhythm: regular rate and regular rhythm Heart Sounds: + murmur Gastrointestinal (Abdomen): normal bowel sounds, soft, nontender, no hepato splenomegaly Musculoskeletal: no cyanosis or clubbing, extremities motor strength 5/5 Neurologic: PERRL, EOMI, accommodation nl, no face palsy, no dysarthria Psychiatric: A+Ox3, euthymic affect Results & Data Results & Data ([facility]) Vital Signs (Past 12 Hours) Vital Signs Temp Pulse Pulse Resp BP Pulse Ox 03/24/21 08:00 36.8 C 62 18 130/69 96 03/24/21 03:00 36.7 C 66 16 100/63 98 03/24/21 01:00 75 03/23/21 23:51 36.9 C 71 18 115/75 96 Laboratory Results 03/24/21 07:01 03/24/21 07:01 Diagnostic Findings No new imaging PG Care Time/CCT Total # of Minutes Spent Total Time Spent with Patient: Total time spent is greater than 50% in coordination of care (as documented) at patient's floor/unit and/or counseling patient: Coding Level of Care Code 79884 Subseq Hosp Care Lvl 3 Diagnoses Acute hypoxemic respiratory failure J96.01 Aortic stenosis I35.0 Prostate CA C61 Ab[address] CT scan of lung R91.8
[2021-03-24] MEDS: INSULIN ASPART 100 UNITS/ML 3 ML PEN SC SCH ×5 (10:03→23:54)
[2021-03-24] MEDS: lisinopril 2.5 MG TAB PO SCH (10:08)
[2021-03-24] MEDS: METOPROLOL SUCC 25MG EXT REL TAB PO SCH ×2 (10:09→20:35)
[2021-03-24] MEDS: AMIODARONE 200 MG TAB PO SCH (10:10)
[2021-03-24] MEDS: PANTOprazole 40 MG TAB PO SCH ×2 (10:11→20:34)
[2021-03-24] MEDS: ATORVASTATIN 20 MG TAB PO SCH (20:34)
[2021-03-25] MEDS: HEPARIN SODIUM/DEXTROSE 25,000 UNITS/500 ML BAG IV SCH (01:18)
[2021-03-25] MEDS: POTASSIUM CHLORIDE 20 MEQ in LACTATED RINGER'S 1,000 ML IV SCH (02:15)
--- NOTE | 2021-03-25 05:31 | Electrocardiogram Report ---
Test Reason : Blood Pressure : / mmHG Vent. 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
[2021-03-25] MEDS: INSULIN ASPART 100 UNITS/ML 3 ML PEN SC SCH ×2 (06:08→12:18)
[2021-03-25 07:37] VITALS: TEMP 98.4
[2021-03-25] MEDS: METOPROLOL SUCC 25MG EXT REL TAB PO SCH (08:00)
[2021-03-25] MEDS: AMIODARONE 200 MG TAB PO SCH (08:00)
[2021-03-25] MEDS: PANTOprazole 40 MG TAB PO SCH (08:00)
[2021-03-25] MEDS: lisinopril 2.5 MG TAB PO SCH (08:00)
[2021-03-25 09:03] LABS: Hematocrit (blood only) 32.3 % (42-52); Hemoglobin 10.4 g/dL (14.0-18.0); Mean Corpuscular Hemoglobin 28.7 pg (25-34); Mean Corpuscular Hgb Conc 32.2 g/dL (32-36); Mean Platelet Volume 8.7 fL (7.4-10.4); Platelet Count 140 K/uL (130-400); RDW Standard Deviation 57.7 fL (36.4-46.3); Red Blood Count 3.63 M/uL (4.7-6.1); White Blood Count 6.91 K/uL (4.8-10.8)
[2021-03-25 09:12] LABS: INR 1.2 (0.9-1.1); Partial Thromboplastin Ratio 1.2; Partial Thromboplastin Time 30.6 Seconds (21.0-31.0); Prothrombin Time 11.9 Seconds (9.0-12.0)
--- NOTE | 2021-03-25 09:16 | Pulmonology Progress Note ---
Date of Service March 25, 2021 Assessment & Plan (1) Acute hypoxemic respiratory failure: (2) Aortic stenosis: (3) Prostate CA: (4) Abnormal CT scan of lung: Impression: 80-year-old male with metastatic prostate cancer, multiple pulmonary nodules and mediastinal adenopathy, mild emphysematous changes admitted with shortness of breath which is likely multifactorial due to combinations of anemia, valvular heart disease, and potentially structural lung disease. There was concern about amiodarone however the CT scan does not appear consistent with that and I would favor continuing amiodarone if it is offering him a benefit with regards to rate control. There is no indication for bron choscopy at this point time. Recommendations: 1. Abnormal CT scan: The patient has multiple mediastinal lymph nodes and pulmonary nodules. Plan for bronchoscopy with endobronchial ultrasound and tr ansbronchial needle aspiration today at 130. Patient was examined and EMR reviewed and the patient is appropriate for conscious sedation and to undergo the bronchoscopy procedure today. After he recovers, he can likely be dismissed from the hospital and follow-up with his outpatient pipelines laborer oncologist to review results. 2. Anemia work-up and management per primary service. 3. Septal thickening: Unclear if this is related to the patient's aortic stenosis or not. Continue diuresis and blood pressure control. He is back on his amiodarone. Plan for serial imaging and follow-up complete pulmonary function testing in the outpatient setting once clinically stable. 4. Hypoxemia: Currently on room air recommend assessment with two-step prior to discharge and coordination of supplemental oxygen therapy if the patient qualifies. 5. Sleep disordered breathing: Recommend the patient continue CPAP at his home settings. Again I do not have his sleep study results or compliance data to review. He can follow-up with whichever provider was managing this in the outpatient setting. Weight loss recommended If the patient's dyspnea is better, he can likely be dismissed from the hospital post bronchoscopy with follow-up with his medical oncology providers. Admission and Anticipated Discharge Date Admission Date: March 22, 2021 Subjective No complaints this morning. Heparin is off. He is n.p.o. for bronchoscopy later today. He states he was ambulatory yesterday. Shortness of breath is better. He is not really exerting himself to high degree so is unclear if his symptoms are markedly better not. No cough chest pain palpitations or lower extremity edema. Review of Systems Review of Systems: All systems reviewed & are unremarkable except as noted in HPI & below Physical Exam Constitutional: + well hydrated and + obese; no acute distress Eyes: PERRL, conjunctivae normal, anicteric sclerae ENMT: external ear and nose normal, oropharynx normal Mallampati Class: III Respiratory: normal respiratory effort, lungs clear to auscultation Cardiovascular: Rate/Rhythm: regular rate and regular rhythm Heart Sounds: + murmur Gastrointestinal (Abdomen): normal bowel sounds, soft, nontender, no hepatosplenomegaly Musculoskeletal: no cyanosis or clubbing, extremities motor strength 5/5 Neurologic: PERRL, EOMI, accommodation nl, no face palsy, no dysarthria Psychiatric: A+Ox3, euthymic affect Results & Data Results & Data ([facility]) Vital Signs (Past 12 Hours) Vital Signs Temp Pulse Pulse Resp BP Pulse Ox 03/25/21 07:49 61 03/25/21 07:37 36.9 C 60 16 143/71 H 93 03/25/21 04:27 37.1 C 69 18 112/72 93 03/24/21 23:42 37.0 C 73 18 113/65 92 03/24/21 22:22 72 Laboratory Results 03/25/21 08:39 Diagnostic Findings No new imaging PG Care Time/CCT Total # of Minutes Spent Total Time Spent with Patient: Total time spent is greater than 50% in coordinat ion of care (as documented) at patient's floor/unit and/or counseling patient: Coding Level of Care Code 01390 Subseq Hosp Care Lvl 2 Diagnoses Acute hypoxemic respiratory failure J96.01 Aortic stenosis I35.0 Prostate CA C[address] scan of lung R91.8
[2021-03-25 09:25] LABS: Basophilic Stippling 1+; Basophils # (auto) 0.01 K/uL (0-0.2); Basophils % (auto) 0.1 %; Dohle Bodies 1+; Eosinophils # (auto) 0.01 K/uL (0-0.5); Eosinophils % (auto) 0.1 %; Immature Granulocytes # (auto) 0.07 K/uL (0.00-0.02); Lymphocytes # (auto) 0.65 K/uL (1.2-3.4); Lymphocytes % (auto) 9.4 %; Monocytes % (auto) 10.1 %; Neutrophils # (auto) 5.47 K/uL (1.4-6.5); Neutrophils % (auto) 79.3 %; Polychromasia 1+; Toxic Granulation 1+
[2021-03-25 09:35] LABS: BUN Creatinine Ratio 11.6 (10-20); Calcium 8.1 mg/dl (8.5-10.1); Creatinine Clr Calc Pharmacy 81.4 ml/min; Est GFR (African American) 95.6 ml/min; Est GFR (Non-African American) 82.5 ml/min; Magnesium 2.1 mg/dl (1.8-2.4); Potassium 3.8 mmol/L (3.5-5.1)
--- NOTE | 2021-03-25 11:23 | Cardiology Progress Note ---
Date of Service March 25, 2021 Assessment & Plan (1) Acute hypoxemic respiratory failure: (2) PAF (paroxysmal atrial fibrillation): (3) Ischemic cardiomyopathy: (4) Aortic stenosis: Pulmonology notes are appreciated. Agree the patient's respiratory problems are most likely multifactorial including ischemic cardiomyopathy, aortic stenosis as well as has underlying lung problems. The patient is to have a bronchoscopy later today. Admission and Anticipated Discharge Date Admission Date: March 22, 2021 Subjective The patient had an uneventful night. His was in the room today and I answered all questions. Review of Systems Review of Systems: All systems reviewed & are unremarkable except as noted in Subjective Physical Exam Physical Exam: General: no acute distress and stated age Head: normocephalic, no masses, lesions, tenderness or abnormalities Eyes: conjunctiva are pink and non-injected, sclera clear Neck: supple, no adenopathy, no bruits, normal jugular venous pulse, no hepat ojugular reflux Chest: normal shape and normal respiratory effort Lungs: clear to auscultation and percussion Cardiac Exam: - regular rate & rhythm, systolic murmur- normal S1, normal S2 Pulses: 2(+) throughout Abdomen: abdomen soft, non-tender, no abnormal masses and no hepatosplenomegaly Musculoskeletal: no gait disturbance, no joint inflammation, no deforming arthritis Extremities: no edema and no cyanosis Neuro: grossly normal exam Results & Data ([facility]) Vital Signs (Past 12 Hours) Vital Signs Temp Pulse Pulse Resp BP Pulse Ox 03/25/21 07:49 61 03/25/21 07:37 36.9 C 60 16 143/71 H 93 03/25/21 04:27 37.1 C 69 18 112/72 93 03/24/21 23:42 37.0 C 73 18 113/65 92 Laboratory Results Laboratory Results - last 24 hr 03/23/21 03/24/21 03/24/21 15:24 11:22 16:17 WBC RBC Hgb Hct MCV MCH MCHC RDW Std Deviation RDW Coeff of Bradly Plt Count MPV Immature Gran % (Auto) Neut % (Auto) Lymph % (Auto) [place] % (Auto) Eos % (Auto) Baso % (Auto) Neut # (Auto) Lymph # (Auto) [place] # (Auto) Eos # (Auto) Baso # (Auto) Immature Gran # (Auto) Toxic Granulation Dohle Bodies Polychromasia Basophilic Stippling Haptoglobin 92 PT INR APTT PTT Ratio Sodium Potassium Chloride Carbon Dioxide Anion Gap BUN Creatinine Est Cr Clr Drug Dosing Est GFR ( Amer) Est GFR (Non-Af Amer) BUN/Creatinine Ratio Glucose POC Glucose 224 H 99 Calcium Magnesium 03/24/21 03/25/21 03/25/21 20:09 06:05 08:39 WBC RBC Hgb Hct MCV MCH MCHC RDW Std Deviation RDW Coeff of Bradly Plt Count MPV Immature Gran % (Auto) Neut % (Auto) Lymph % (Auto) [place] % (Auto) Eos % (Auto) Baso % (Auto) Neut # (Auto) Lymph # (Auto) [place] # (Auto) Eos # (Auto) Baso # (Auto) Immature Gran # (Auto) Toxic Granulation Dohle Bodies Polychromasia Basophilic Stippling Haptoglobin PT 11.9 INR 1.2 H APTT 30.6 PTT Ratio 1.2 Sodium Potassium Chloride Carbon Dioxide Anion Gap BUN Creatinine Est Cr Clr Drug Dosing Est GFR ( Amer) Est GFR (Non-Af Amer) BUN/Creatinine Ratio Glucose POC Glucose 131 H 140 H Calcium Magnesium 03/25/21 03/25/21 08:39 08:39 WBC 6.91 RBC 3.63 L Hgb 10.4 L Hct 32.3 L MCV 89.0 MCH 28.7 MCHC 32.2 RDW Std Deviation 57.7 H RDW Coeff of Bradly 18.0 H Plt Count 140 MPV 8.7 Immature Gran % (Auto) 1.0 Neut % (Auto) 79.3 Lymph % (Auto) 9.4 [place] % (Auto) 10.1 Eos % (Auto) 0.1 Baso % (Auto) 0.1 Neut # (Auto) 5.47 Lymph # (Auto) 0.65 L [place] # (Auto) 0.70 H Eos # (Auto) 0.01 Baso # (Auto) 0.01 Immature Gran # (Auto) 0.07 H Toxic Granulation 1+ Dohle Bodies 1+ Polychromasia 1+ Basophilic Stippling 1+ Haptoglobin PT INR APTT PTT Ratio Sodium 139 Potassium 3.8 Chloride 107 Carbon Dioxide 26 Anion Gap 6.0 BUN 10 Creatinine 0.83 Est Cr Clr Drug Dosing 81.4 Est GFR ( Amer) 95.6 Est GFR (Non-Af Amer) 82.5 BUN/Creatinine Ratio 11.6 Glucose 149 H POC Glucose Calcium 8.1 L Magnesium 2.1 Medications Administered Current Inpatient Medications Acetaminophen (Acetaminophen 325 Mg Tab) 650 mg PO Q4H PRN PRN Reason: Pain or Fever Stop: 04/22/21 00:11 Albuterol (Albut/Ipratrop 3mg/0.5mg Neb 3 Ml Vial) 3 ml NEB Q2R PRN PRN Reason: Wheezing Stop: 04/22/21 00:59 Amiodarone HCl (Amiodarone 200 Mg Tab) 200 mg PO QAM KENDRICK Stop: 04/23/21 08:59 Last Admin: 03/25/21 08:00 Dose: 200 mg Documented by: Atorvastatin Calcium (Atorvastatin 20 Mg Tab) 20 mg PO HS [facility] Stop: 04/22/21 20:59 Last Admin: 03/24/21 20:34 Dose: 20 mg Documented by: Dextrose (Dextrose 50% 50 Ml Syringe) 25 - 50 ml IV UD PRN; Protocol PRN Reason: Hypoglycemia Protocol Stop: 04/22/21 00:11 Glucagon (Glucagon For Inj 1 Mg Vial) 1 mg SQ UD PRN; Protocol PRN Reason: Hypoglycemia Protocol Stop: 04/22/21 00:11 Glucose (Glucose 10 Tabs/Tube) 4 - 8 tabs PO UD PRN; Protocol PRN Reason: Hypoglycemia Protocol Stop: 04/22/21 00:11 Glucose (Glucose 40% Gel 15 Gm Tube) 15 - 30 gm PO UD PRN; Protocol PRN Reason: Hypoglycemia Protocol Stop: 04/22/21 00:11 Heparin Sodium/Dextrose (Heparin Sodium/Dextrose) 25,000 units in 500 mls @ 0 mls/hr IV .Q0M KENDRICK; Protocol Stop: 04/21/21 23:44 Last Titration: 03/25/21 07:34 Dose: 0 units/hr, 0 mls/hr Documented by: Promethazine HCl 12.5 mg/ (Sodium Chloride) 50.5 mls @ 202 mls/hr IV Q6H PRN PRN Reason: Nausea And Vomiting Stop: 04/22/21 00:11 Insulin Aspart (Insulin Aspart 100 Units/Ml 3 Ml Pen) 0 units SC Q6 KENDRICK Stop: 04/24/21 00:00 Last Admin: 03/25/21 06:08 Dose: Not Given Documented by: Lisinopril (Lisinopril 2.5 Mg Tab) 2.5 mg PO QAM [facility] Stop: 04/22/21 08:59 Last Admin: 03/25/21 08:00 Dose: 2.5 mg Documented by: Metoprolol Succinate (Metoprolol Succ 25mg Ext Rel Tab) 25 mg PO BID [facility] Stop: 04/22/21 00:59 Last Admin: 03/25/21 08:00 Dose: 25 mg Documented by: Miscellaneous (Carbohydrates For Hypoglycemia ) 15 - 30 gm PO UD PRN PRN Reason: Hypoglycemia Protocol Stop: 04/22/21 00:11 Pantoprazole Sodium (Pantoprazole 40 Mg Tab) 40 mg PO BID [facility]; Protocol Stop: 04/22/21 08:59 Last Admin: 03/25/21 08:00 Dose: 40 mg Documented by: Tramadol HCl (Tramadol Hcl 50 Mg Tablet) 25 mg PO Q4H PRN PRN Reason: Pain Stop: 04/22/21 00:11
[2021-03-25] MEDS ORDERED: fentaNYL citrate 100 MCG/2 ML VIAL ONE (12:54)
[2021-03-25] MEDS ORDERED: MIDAZOLAM HCL 5 MG/ML 1 ML VIAL ONE (12:54)
--- NOTE | 2021-03-25 13:23 | Pre Anesthesia Assessment ---
Date of Service March 25, 2021 Pre Sedation Assessment Vital Signs Temp Pulse Pulse Resp BP Pulse Ox 03/25/21 13:15 68 18 124/74 91 03/25/21 07:49 61 03/25/21 07:37 36.9 C 60 16 143/71 H 93 03/25/21 04:27 37.1 C 69 18 112/72 93 03/24/21 23:42 37.0 C 73 18 113/65 92 03/24/21 22:22 72 03/24/21 19:40 37.3 C 90 20 104/61 91 03/24/21 15:10 37 C 71 18 113/69 97 Pre-Sedation Airway Assessment Smoking Status: Former smoker Hx Sleep Apnea: Yes (c pap) Short, Thick Neck: Yes Thyromental Distance: < 3.5 Finger Breadths Oral Cavity: + Dentures Mallampati Class: II ASA: ASA3 NPO Status Date of Last Intake of Fluids: 03/25/21 Time of Last Intake of Fluids: 00:00 Last Oral Intake of Fluids Comment: atleast since midnight Date of Last Intake of Solid Food: 03/25/21 Time of Last Intake of Solid Foods: 00:00 Notes The planned sedation has been discussed with the patient. Informed Consent was obtained. I have identified the patient, determined the appropriateness of sedation and have assessed the patient immediately prior to the procedure. All medicine(s) and interventions are by my order.
--- NOTE | 2021-03-25 14:06 | Procedure Note ---
Procedure Note Date of Service March 25, 2021 Procedure: Fiberoptic bronchoscopy Endobronchial ultrasound evaluation during bronchoscopy Endobronchial ultrasound with transbronchial needle aspiration of lymph nodes, 3 stations Conscious sedation Provider: Enrique Soto MD Consent: Signed by patient and timeout verified prior to procedure. Sedation start: 1322 Sedation end:1358 Conscious sedation: 5 mg Versed, 125 mcg fentanyl, topical lidocaine per RT protocol Estimated blood loss less than 1 mL Procedure: Patient was brought to the bronchoscopy suite. Consent was verified. Appropriate radiographic studies had been reviewed prior to the procedure. Standard monitoring was applied. Oxygen was administered. After topical anesthesia of the airways per respiratory therapy protocol, the fiberoptic scope was advanced through the oropharynx via the bite block. Oropharynx was unremarkable. Vocal cords were visualized and were normal in function and appearance. Topical anesthesia of the cords was achieved with instillation of lidocaine through the scope. Scope was then passed through the vocal cords. The trachea was normal with collapse of the posterior membranes with coughing. Main carmela was slightly splayed. Anesthesia of the lower airways was achieved with instillation of lidocaine through the scope. A sequential and systematic examination of the lower airways was conducted. The right-sided airways were widely patent with normal anatomic configuration except for a bifurcated RV 6 segment and the mucosa appeared normal. Left-sided airways were patent with normal anatomic configuration and the mucosa appeared normal. Once the inspection bronchoscopy was completed the bronchoscope was removed and endobronchial ultrasound advanced through the oropharynx by the bite block. It was passed through the vocal cords and a systematic inspection of mediastinal and hilar lymph nodes was conducted. Adenopathy was identified in the 4L, 4R, 2R, and 10 R stations. Using a 21-gauge needle and under direct ultrasound visualization, lymph node stations 4R, 4L, and 10 R were biopsied. Rapid onsite cytologic evaluation was present however the slides demonstrated mostly blood with minimal cellularity. Greater than 3 passes was taken at each lymph node. The needle was visualized under ultrasound to be in adequate position. The bronchoscope was then removed from the airways. The patient tolerated the procedure well without obvious complication. Patient was returned to the recovery room. Impression: 1. Normal inspection bronchoscopy with segment of a bifurcated RV 6 segment. 2. Mediastinal adenopathy in the 4R, 4L, and 10 R stations status post transbronchial needle aspiration. 3. Patient can follow-up with his oncologist regarding results of these biopsies which should be available next week. If they are nondiagnostic and additional tissue is required, consideration for mediastinoscopy may be appropriate. I do not think a repeat endobronchial ultrasound would yield any different results as we were thoroughly engaged with the lymph nodes. Coding CPT Codes Pulmonary/Thoracic - Pulmonary and Thoracic: 01539 Bronchoscopy, w/EBUS add on ([id number]) Pulmonary/Thoracic - Pulmonary and Thoracic: 78595 Bronchoscopy, w/EBUS, 3+ mediastinal ([id number]) Sedation/Anesthesia - Sedation/Anesthesia: 29018 Mod Sedation by the same physician;Init15 Min Child Age 5 & Up ([id number]) Sedation/Anesthesia - Sedation/Anesthesia: 95079 Mod Sedation by the same physician; Ea [id number] Minutes ([id number]) [facility] Procedure Codes (Charges) Pulmonary/Thoracic Procedure 1: Pulmonary and Thoracic: 72303 Bronchoscopy, w/EBUS add on Procedure 2: Pulmonary and Thoracic: 13636 Bronchoscopy, w/EBUS, 3+ mediastinal Sedation/Anesthesia Procedure 3: Sedation/Anesthesia: 32717 Mod Sedation by the same physician;Init15 Min Child Age 5 & Up Total Sedation Time (minutes): 36 Procedure 4: Sedation/Anesthesia: 52919 Mod Sedation by the same physician; Ea A [id number] Minutes Total Sedation Time (minutes): 36
--- NOTE | 2021-03-25 14:16 | Post Anesthesia Assessment ---
Date of Service March 25, 2021 Post Sedation Assessment Vital Signs Temp Pulse Pulse Resp BP Pulse Ox 03/25/21 14:04 60 16 122/61 95 03/25/21 13:59 64 16 112/69 95 03/25/21 13:54 64 16 140/74 96 03/25/21 13:50 64 16 127/66 97 03/25/21 13:45 60 16 113/69 94 03/25/21 13:40 60 16 121/70 93 03/25/21 13:35 60 16 120/63 94 03/25/21 13:30 60 18 121/75 90 03/25/21 13:25 64 18 123/73 99 03/25/21 13:20 64 18 141/71 H 99 03/25/21 13:15 68 18 124/74 91 03/25/21 07:49 61 03/25/21 07:37 36.9 C 60 16 143/71 H 93 03/25/21 04:27 37.1 C 69 18 112/72 93 03/24/21 23:42 37.0 C 73 18 113/65 92 03/24/21 22:22 72 03/24/21 19:40 37.3 C 90 20 104/61 91 03/24/21 15:10 37 C 71 18 113/69 97 Recovery Score Activity: Moves 4 extremities Respiration: Deep Breath/Cough Circulation: +/-20% PreAnes Value Consciousness: Arouseable (by name) Oxygen Saturation: O2 needed for >90% Post Anesthesia Score: 8 Discharge Sedation Level of Care: Fast Track Phase II Post Sedation Plan On clinical assessment, the patient appears to have tolerated the sedation without complications. Patient is recovering as anticipated. Patient will continue to be monitored by nursing and may be discharged when sedation discharge criteria are met per below protocol. Upon Completions of procedure up to 15 minutes continue every 5 minute vital signs and the P.A.R. score; then discharge to a Phase I or Fast Track to Phase II per the following guidelines: * Discharge Patient to appropriate Phase II area if PAR is 8 or greater or return to pre- procedure baseline. The post - procedure orders will be as directed. * If PAR score is less than 8 or not return to pre-procedure baseline then patient will follow Phase I monitoring till PAR is reached for Phase II. The Phase I may be done in procedure room or may call to secure a Phase I area. * If naloxone or flumazenil are used for reversal, hold in Phase I for continued monitoring from when last reversal dose was given for a minimum of 60 minutes or longer pending the nurse and/or physician discretion of patient condition before discharge to Phase II. Please call the Sedation Physician to re-evaluate and complete post-note for discharge to Phase II area. Do NOT discharge from procedure sedation or Phase 1 until post- sedation evaluation note is complete by procedure /sedation MD Sedation Discharge Instructions to be given to the patient at discharge to home.
[2021-03-25 14:50] VITALS: O2SAT 93
[2021-03-25] MEDS ORDERED: Nursing to Pharmacy Communication SCH (15:00)
--- NOTE | 2021-03-25 15:48 | Discharge Summary ---
Date of Service March 25, 2021 Admission HPI Per Admitting Provider History obtained from patient, family, and records. Medical history significant for chronic systolic heart failure (EF 37%, TTE 2020) secondary ischemic cardiomyopathy, valvular heart disease (moderate aortic stenosis, mild mitral regurgitation on recent TTE), pulmonary hypertension, CAD status post CABG status post stent, PVD as per records, SSS sp PPM on Coumadin, hypertension, hyperlipidemia, AL on CPAP, PE/DVT as per records, DM2 on oral medications, metastatic prostate cancer status post radiation sp Lupron status post chemotherapy, chronic anemia (baseline hemoglobin 11 as of February 2021), past tobacco abuse. Recent confinement January [address] for pleuritic chest pain. CT chest did not show any pulmonary emboli but showed pulmonary metastasis with metastatic medial and hilar adenopathy with narrowing of the right middle and lower lobar bronchi and adjacent pulmonary artery secondary to pathologic hilar adenopathy. Possible hepatic metastasis. Nonocclusive DVT found on the right lower extremity. Patient later on found to be positive for 1 copy of factor V Leiden variant as per documentation. Patient discharged on Coumadin which she was already taking for paroxysmal A. fib history. In the last week, patient noted worsening shortness of breath especially on exertion. O2 sats 80s at home. Patient denies chest pain, cough symptoms. Patient denies abdominal pain, black/bloody stools. Lung CAT scan abnormality possibly cancer spread as per patient oncologist as per patient/. O2 sats noted to be 80's at PCP's office today. Patient sent to ER for evaluation. 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 Admission Exam Per Admitting Provider GENERAL: Comfortable, pleasant, obese, no respiratory distress SKIN: Pallor, warm HEENT: Alopecia, pale palpebral conjunctivae, no ptosis, dry buccal mucosa, nasal cannula in place NECK : Supple, short neck, no tenderness CHEST : Decreased breath sounds, no tenderness HEART : RRR, systolic murmur no obvious murmurs ABDOMEN: Some distention, nontender RECTAL : Intact sphincter, brown yellow stool (FOBT negative) EXTREMITIES : Minimal LE swelling, no LE tenderness, no other conspicuous deformities noted NEUROLOGIC : Coherent, no facial asymmetry, no other gross focality Principal Diagnosis Acute hypoxic respiratory failure Leukopenia Discharge Exam Constitutional + well hydrated and + obese; no acute distress Eyes PERRL, conjunctivae normal, anicteric sclerae ENMT external ear and nose normal, oropharynx normal Respiratory normal respiratory effort, lungs clear to auscultation Cardiovascular Rate/Rhythm: regular rate and regular rhythm Heart Sounds: + murmur Gastrointestinal (Abdomen) normal bowel sounds, soft, nontender, no hepatosplenomegaly Musculoskeletal no cyanosis or clubbing, extremities motor strength 5/5 Neurologic PERRL, EOMI, accommodation nl, no face palsy, no dysarthria Psychiatric A+Ox3, euthymic affect Discharge Data Allergies Allergy/AdvReac Type Severity Reaction Status Date / Time No Known Allergies Allergy Verified 03/22/21 18:40 Consultations 03/22/21 20:45 ED Decision to Admit Stat 03/23/21 02:57 Consult Pulmonology Routine 03/23/21 10:53 Consult Cardiology Routine Procedures Performed Operation Date: 03/25/21 12:30 Actual Procedures p Endobronchial Ultrasound (EBUS)(Bilateral) - Enrique Soto MD s Bronchoscopy Radiology(Bilateral) - Enrique Soto MD Ordered Studies 03/22/21 19:18 CT angio chest PE protocol Stat There is again noted mediastinal and bilateral hilar lymphadenopathy. This demonstrates a mixed response compared to the prior study with slight decrease in size in size in the AP window and bilateral hilar lymphadenopathy. There has been slight increase in size in the right paratracheal lymphadenopathy. Dominant right paratracheal lymph node measures 3.8 x 2.9 cm, previously measuring 3.2 x 2.7 cm. A left hepatic lobe mass is better appreciated on this study. This measures 3.6 cm and is consistent with metastatic disease. The visualized adrenal glands and spleen are unremarkable. There is a partially calcified 1.2 cm right subhepatic nodule on image 129 of series 2. Stable mild thickening at the distal esophagus. Left-sided pacemaker is again noted. Mild bilateral gynecomastia. No pleural or pericardial effusions. The heart is borderline enlarged. This remains unchanged. Mild calcified plaque within the normal caliber thoracic aorta. No filling defects within the pulmonary arteries to suggest pulmonary embolus. There are poststernotomy changes. No pneumothorax. Mass effect/narrowing of the right middle and lower lobe bronchi has almost completely resolved. Mild diffuse interstitial thickening, unchanged. This has a subtle nodular appearance which could be chronic. Lymphangitic spread of tumor is considered less likely but not entirely excluded. Multiple bilateral scattered pulmonary nodules are again noted and are stable to decreased in size compared to the prior study. Bibasilar linear densities favor subsegmental atelectasis. IMPRESSION: 1. No evidence for pulmonary embolus. 2. Mixed response of the mediastinal and bilateral hilar lymphadenopathy as described above. 3. Multiple metastatic pulmonary nodules which are stable to decreased in size compared to the prior study. 4. Mild diffuse interstitial thickening. This could be chronic. This has a somewhat nodular appearance and therefore could represent lymphangitic spread of tumor. This bears watching on future examinations. 5. Left hepatic lobe metastasis. Hospital Course (1) Acute hypoxemic respiratory failure: Presented with exertional dyspnea and low oxygen Ox sats was 87% on room air Was started on nasal oxygen Interstitial thickening, hilar adenopathy, pulmonary nodules on CT PE Possible metastatic malignancy Prostate cancer status post radiation, on lupron q3 months and docetaxel Underlying pulmonary hypertension, PASP of 42 mmHg on recent outpatient TTE October 2020 AL on CPAP Etiologies of acute hypoxic respiratory failure likely multifactorial in the setting of conditions listed above No PE on CT angio. Was weaned off oxygen. Coumadin was initially held and put on warfarin Ambulatory 2 step oxygen today did not show any oxygen requirement with activity Discussed with Dr Contreras, patient's oncologist. He reported pulmonary nodules and lymphadenopathy has had been presumed metastatic but they have not had a diagnostic biopsy and recommendation to get that if possible. Patient had bronchoscopy today with biopsy. He needs to follow up results with his Oncologist SSS status post PPM History PE DVT Resume home coumadin Chronic systolic heart failure Hypertension (EF 37%, TTE 2020) secondary to ischemic cardiomyopathy. CAD sp CABG, stent/ hx PVD as per records Patient appears euvolemic Echo 03/23/21 showed EF 35-40%, apical and septal akinesis, moderate valvular aortic stenosis Continue statin Was seen by Power Line Installer while inpatient Continue lisinopril, metoprolol succinate Amiodarone changed to 200mg daily DM2 On oral medications, well-controlled as of recent hemoglobin A1c of January 2021 Continue home antidiabetics Chronic anemia Likely related to chronic medical problems Denied any overt bleeding. Monitor hemoglobin Leukopenia. WBC was 1.1 on admission. Ryne of 0.90 No fevers for now No other sign of infection May be related to chemo Discussed this with Dr. Contreras who agreed with neupogen. Gave one dose yesterday. WBC came upto 6.91K/uL today Ms. Lucinda Lopez, contact #[phone]. Updated about management Total Time Total Time Spent Total Time Spent (In Minutes): 45 Total Time Includes: Examination of the Patient, Discharge Planning, Medication Reconciliation and Communication With Other Providers Discharge Plan Discharge Items Patient Disposition: Home - Self-Care Reason For Visit: RESP FAILURE Discharge Diagnosis: Acute hypoxic respiratory failure Leukopenia Condition on Discharge: Good Activity: Resume your previous activity Non-emergency contact: Primary Care Provider and Oncologist Call non-emergency contact if: you have any medication questions Follow-up/Referrals: Justa Lebron DO [Outside Practitioners] - (Visit Information Date & Time 03/30/2021 11:20 AM Provider Justa Lebron DO Department [facility] ) Fredy Loza [Primary Care Provider] - Diet: Carb Consistent or DM2 and Heart Healthy Addtl Attending Provider Instructions: Mr. Lopez You came to the hospital complaining of shortness of breath with exertion and low oxygen levels at home. You were evaluated on admission noted to have low oxygen requiring oxygen supplementation. CT of your chest showed enlarged lymph nodes and nodules which may be metastatic as well as a left hepatic lobe metastasis. You had a bronchoscopy and biopsy. Please follow-up the biopsy results with your oncologist. You were successfully weaned off oxygen Please continue take your medications as prescribed. Ensure follow-up with the oncologist and your primary doctor Your white blood cell count was low. You received Neupogen and improved. It was a pleasure taking care of you Pending Studies at Discharge: Yes Studies:: Biopsy results Stand-Alone Forms: My [facility] Accuri Cytometers, Smoking Cessation Medications and DC Order Prescriptions: Continued glipizide 10 mg tablet extended release 24hr 10 mg PO BID RF: 0 omeprazole 20 mg capsule,delayed release(DR/EC) 20 mg PO BID RF: 0 aspirin 81 mg tablet,chewable 81 mg PO QAM RF: 0 metoprolol succinate 25 mg tablet extended release 24 hr 25 mg PO BID RF: 0 lisinopril 2.5 mg tablet 2.5 mg PO QAM RF: 0 potassium chloride [Klor-Con M10] 10 mEq tablet,ER particles/crystals 10 meq PO BID RF: 0 Glucosamine Chondroitin 550-30-1 mg Capsule 1 cap PO BID RF: 0 nitroglycerin [Nitrostat] 0.4 mg Tablet, Sublingual 0.4 mg sublingual DIRECTED PRN (Reason: Chest Pain) RF: 0 pioglitazone 45 mg tablet 45 mg PO QAM RF: 0 fluocinonide 0.05 % Solution 1 applic TOPICAL DAILY PRN (Reason: Itching) RF: 0 ketoconazole 2 % shampoo 1 applic TOPICAL DIRECTED RF: 0 acetaminophen [Tylenol] 325 mg Tablet 975 mg PO QID PRN (Reason: Fever Or Pain) RF: 0 ascorbic acid (vitamin C) 250 mg Tablet 0 mg PO QAM RF: 0 cholecalciferol (vitamin D3) 25 mcg (1,000 unit) Tablet 0 mcg PO PM RF: 0 warfarin 5 mg Tablet 5 mg PO QAM RF: 0 furosemide [Lasix] 40 mg Tablet 40 mg PO QAM RF: 0 atorvastatin 20 mg Tablet 20 mg PO HS Qty: 30 RF: 0 Changed amiodarone 200 mg Tablet 200 mg PO DAILY Qty: 60 RF: 0 Discharge Orders: Discharge Order (Routine); Ordered 03/25/21 Ordered By: Violetta Membreno Admission Data Admit Date/Time: 03/22/21 21:50 Attending Provider: Violetta Membreno I. Admit Provider: Austyn Thompson Primary Care Provider: Fredy Loza Other Providers: Austyn Thompson ; John Rivero ; Diego Boston ; Shilpa Pulido ; Yon Patrick ; Melissa Mcintosh ; Edwardo Morales ; Enrique Soto ; Guera Mcmanus ; Pavan Horvath Other Interventions: Discharge Summary Assessment (RN) Last Done: 03/25/21 16:13
[2021-03-25 16:17] VITALS: BP 154/70; PULSE 60
[2021-03-25] MEDS ORDERED: INSULIN ASPART 100 UNITS/ML 3 ML PEN SC SCH (16:30)
== END 2021-03-25 17:06 | disposition home or self-care (01) | DRG 166 ==
LOC: ED 16:08 → 2N 21:50

== ENCOUNTER 2021-10-16 10:05 | Observation (INO) ==
[2021-10-16] MEDS ORDERED: NITROGLYCERIN 2% OINTMENT 30GM TUBE EXT STA (10:16)
--- NOTE | 2021-10-16 10:19 | Emergency Department Note ---
History of Present Illness General Chief complaint: Chest Pain Time Seen by Provider: 10/16/21 10:06 Source: patient History of Present Illness Provider complaint: Chest pain Onset (ago): day(s) Location: chest Radiation: non-radiation Pain Consistency: + intermittent Quality: + other (Tightness) Relieved By: + other (CPAP) Associated symptoms: + chest pain and + shortness of breath; no cough, no diaphoresis, no fever/chills or no nausea/vomiting This is an 80-year-old male with a history of coronary artery disease and bypass surgery presenting with chest pain starting yesterday while watching football. He describes it as a tightness in the middle of his chest. He denies any radiation. He states that it was associated with some shortness of breath. He denied any diaphoresis. It lasted several hours but once he put on his CPAP machine he started to feel much better. This morning when he took the CPAP machine off he later developed some chest tightness again. He states that he has some mild chest tightness at this time. He denies any fever, cough or cold symptoms, abdominal pain, vomiting, urinary symptoms or leg swelling or pain. He does have chronic diarrhea which is unchanged. Home Medications Medication Instructions Recorded Confirmed Type glucosamine sulf dipot 1 cap PO BID 02/21/19 10/16/21 History chlr,msm,chond 550 mg-C 30 mg-erum 1 mg capsule (Glucosamine Chondroitin) nitroglycerin 0.4 mg sublingual 0.4 mg SUBLINGUAL DIRECTED PRN 02/21/19 10/16/21 History tablet (Nitrostat) omeprazole 20 mg capsule,delayed 20 mg PO BID 02/21/19 10/16/21 History release potassium chloride 10 mEq 10 meq PO BID 02/21/19 10/16/21 History tablet,extended release(part/cryst) (Klor-Con M) ascorbic acid (vitamin C) 250 mg 500 mg PO QAM 01/08/21 10/16/21 History tablet cholecalciferol (vitamin D3) 25 1,000 mcg PO HS 01/08/21 10/16/21 History mcg (1,000 unit) tablet furosemide 40 mg tablet (Lasix) 40 mg PO QAM 01/09/21 10/16/21 History warfarin 5 mg tablet See Rx Instructions .ROUTE .COMPLEX 01/09/21 10/16/21 History empagliflozin 10 mg tablet 10 mg PO QAM 06/13/21 10/16/21 History (Jardiance) losartan 25 mg tablet 12.5 mg PO QAM 06/13/21 10/16/21 History metoprolol succinate 50 mg 50 mg PO HS 06/13/21 10/16/21 History tablet,extended release 24 hr amiodarone 200 mg tablet 200 mg PO QAM 10/16/21 10/16/21 History aspirin 81 mg tablet,delayed 81 mg PO DAILY 10/16/21 10/16/21 History release loratadine 10 mg tablet 10 mg PO DAILY 10/16/21 10/16/21 History vit C 250 mg-vit E 90 mg-zinc 40 2 tab PO DAILY 10/16/21 10/16/21 History mg-copper 1 [id number] capsule (PreserVision AREDS-2) Allergies Allergy/AdvReac Type Severity Reaction Status Date / Time No Known Allergies Allergy Verified 10/16/21 11:58 Past Med/Surg History Medical History Asthma DM2 (diabetes mellitus, type 2) DVT (deep venous thrombosis) "RLE" Dyspnea on minimal exertion History of left heart catheterization (LHC) "60% stenosis mid left anterior descending " HLD (hyperlipidemia) Hyperlipidemia Hypertension Hypoxia AL on CPAP Paroxysmal atrial fibrillation Prostate cancer (10/22/17) Systolic ejection murmur Tachy-shanita syndrome Surgical History H/O esophagogastroduodenoscopy Hx of total knee arthroplasty S/P CABG x 1 S/P cholecystectomy S/P hip replacement S/P knee replacement Family History Other Diabetes Heart disease Social History Smoking Status: Former smoker Tobacco Type: Cigarettes Cigarettes Per Day: 40; Second Hand Exposure: No; Hx Alcohol Use: No Hx Substance Use: No Preferred Language: Nepali Communication Ability: Effective Visual Impairment: No Limitations Hearing Ability: Normal Pyridine Recovery Operator Required: No Beliefs That Will Affect Care: None marital status: Current Living Situation: Spouse Current Living Situation Comment: house Feels Safe at Home: Yes Assistive Devices: Cane Review of Systems See HPI for pertinent positives & negatives. and A total of 10 systems reviewed and were otherwise negative Physical Exam Vital Signs Vital Signs - 24 hr 10/16/21 10:06 10/16/21 10:16 10/16/21 11:59 Temperature 36.9 C Temperature Source Axillary Pulse Rate 64 Pulse Rate [Finger] 62 Respiratory Rate 20 16 Blood Pressure 167/86 H Blood Pressure [Left Arm] 149/89 H Blood Pressure Mean 113 Blood Pressure Mean [Left Arm] 109 Pulse Oximetry 97 98 96 Oxygen Delivery Method Room Air Room Air Room Air Sepsis Recent Fever Within 48 Hours No Sepsis New/Unexplained Change in Mental Status No Sepsis Action Taken by Nursing No Action Required Constitutional: Vital signs reviewed. Eyes: Pupils are equal round reactive to light. Conjunctiva are noninjected. ENT: Pharynx is clear without erythema or exudate. Mucous membranes are moist. Neck supple without meningeal signs. Respiratory: Clear to auscultation bilaterally. Breath sounds are equal bilaterally. Cardiovascular: Regular rate and rhythm. No rubs or gallops. GI: Soft, nondistended and nontender. Bowel sounds are present. Musculoskeletal: No peripheral edema. No lower extremity tenderness. Well- healed sternotomy scar. Integumentary: No cyanosis. or jaundice. Neurological: The patient is awake and alert. No focal deficits. Psychiatric: Normal affect. Not anxious appearing. Course Administered Medications Discontinued Medications Fentanyl Citrate (Fentanyl Citrate 100 Mcg/2 Ml Vial) 50 mcg IV NOW STA Stop: 10/16/21 11:45 Last Admin: 10/16/21 11:55 Dose: 50 mcg Documented by: [id number] Nitroglycerin (Nitroglycerin 2% Ointment 30gm Tube) 0.5 inch EXT NOW STA Stop: 10/16/21 10:17 Last Admin: 10/16/21 10:36 Dose: 0.5 inch Documented by: [id number] Ondansetron HCl (Ondansetron Inj 2 Mg/Ml 2 Ml Vial) 4 mg IV NOW STA Stop: 10/16/21 11:45 Last Admin: 10/16/21 11:55 Dose: 4 mg Documented by: [id number] Medical Decision Making Differential Diagnosis Unstable angina, SD, pleurisy, pneumonia, GERD Medical Records Attestation: I reviewed the patient's medical records. I did perform a limited focused review of portions of the patient's old chart on the electronic medical record. The patient was seen here in May of last year for chest pain. He was observed in the emergency department and sent home after 2 - troponins. Home Medications Current Medication List: was personally reviewed by me Laboratory Data Attestation: I reviewed the patient's lab results. Result diagrams: 10/16/21 10:35 10/16/21 10:35 Lab Results 10/16/21 10/16/21 10/16/21 Range/Units 10:34 10:35 10:35 WBC 5.28 (4.8-10.8) K/uL RBC 4.74 (4.7-6.1) M/uL Hgb 13.7 L (14.0-18.0) g/dL Hct 42.0 (42-52) % MCV 88.6 (80-100) fL MCH 28.9 (25-34) pg MCHC 32.6 (32-36) g/dL RDW Std Deviation 50.6 H (36.4-46.3) fL RDW Coeff of Bradly 15.7 H (11.5-14.5) % Plt Count 141 (130-400) K/uL MPV 8.4 (7.4-10.4) fL Immature Gran % (Auto) 0.0 % Neut % (Auto) 63.4 % Lymph % (Auto) 25.8 % Parker % (Auto) 10.2 % Eos % (Auto) 0.4 % Baso % (Auto) 0.2 % Neut # (Auto) 3.35 (1.4-6.5) K/uL Lymph # (Auto) 1.36 (1.2-3.4) K/uL Parker # (Auto) 0.54 (0.11-0.59) K/uL Eos # (Auto) 0.02 (0-0.5) K/uL Baso # (Auto) 0.01 (0-0.2) K/uL Immature Gran # (Auto) 0.00 (0.00-0.02) K/uL Sodium 137 (136-145) mmol/L Potassium 4.1 (3.5-5.1) mmol/L Chloride 107 (98-107) mmol/L Carbon Dioxide 26 (21-32) mmol/L Anion Gap 4.0 (3-11) BUN 17 (7-18) mg/dl Creatinine 0.83 (0.6-1.4) mg/dl Est Cr Clr Drug Dosing Not Reportable Est GFR ( Amer) 95.6 ml/min Est GFR (Non-Af Amer) 82.5 ml/min BUN/Creatinine Ratio 19.9 (10-20) Glucose 154 H (70-99) mg/dl Calcium 8.8 (8.5-10.1) mg/dl Total Bilirubin 0.7 (0.2-1) mg/dl AST 29 (15-37) U/L ALT 35 (12-78) Alkaline Phosphatase 166 H D (45-117) U/L Troponin I < 0.015 (0-0.045) ng/ml Total Protein 6.9 (6.4-8.2) gm/dl Albumin 3.3 L (3.4-5.0) gm/dl Globulin 3.6 (2.5-4.0) gm/dl Albumin/Globulin Ratio 0.9 (0.9-2) Lipase 116 (73-393) U/L SARS-CoV-2, RNA, NAAT NEGATIVE (NEGATIVE) Imaging Data Radiologist's Impression: Chest X-Ray 10/16/21 10:16 SINGLE VIEW CHEST CLINICAL HISTORY: Atypical chest pain FINDINGS: An AP, portable, upright chest radiograph is compared to study dated 06/13/2021 and correlated with chest CT dated 03/22/2021. The patient is status post midline sternotomy. A 2-lead cardiac pacemaker is unchanged in position. The heart is enlarged noting atherosclerotic calcification of the thoracic aorta. The pulmonary vasculature is noncongested. Chronic interstitial thickening is similar to previous. Scarring/atelectasis is noted at both lung bases. There is no airspace consolidation typical for pneumonia or large pleural effusion. Numerous pulmonary nodules are unchanged. No pneumothorax is seen. The skeletal structures are osteopenic. The bony thorax is grossly intact. D egenerative change is noted in the shoulders. IMPRESSION: 1. Cardiomegaly and cardiac pacemaker with no radiographic evidence of congestive failure. 2. There is no airspace consolidation typical for pneumonia or large pleural effusion. 3. Numerous pulmonary nodules are again noted. These were better characterized on prior chest CTs. ACT 112: Negative or not required by law. Electronically signed by: Yon Galvez M.D. 10/16/2021 10:50 AM ECG Data Attestation: I personally reviewed and interpreted this ECG as follows: Indication: + chest pain Rate (beats per minute): 74 Rhythm: + other (Atrial paced rhythm with prolonged AV conduction) ECG Intervals/blocks: + Right Bundle branch block ECG Delmar: + Left axis deviation ECG Findings: no PVCs Comparison ECG Date: from (June 13, 2021) Change: no significant change MDM Narrative I did evaluate the patient as noted above. The patient is presenting with intermittent chest tightness since last night. He does have a prior history of CABG. He states that his pain got better after using his CPAP but got worse when he took it off. He did have aspirin prior to arrival. IV access established. I did treat the patient with nitroglycerin paste to the anterior chest wall. I did place an order for continuous cardiac monitoring. The monitor showed a paced rhythm at a rate of 64 bpm. I did order and personally review the patient's 12-lead EKG as described above. He has a paced rhythm. I did order and personally reviewed the images of the patient's chest x-ray as described above. He has no evidence of acute cardiopulmonary process. He has nodules which the patient is aware of. I did order and review the patient's blood work as noted in the electronic medical record. CBC is unremarkable without leukocytosis or anemia or thrombocytopenia. His electrolytes and LFTs are unremarkable other than a elevated alk phos. Troponin is negative. INR is 1.9. Covid screening is negative. I did reassess the patient. He is still having pain in his chest. I did treat him with fentanyl and Zofran IV. On reassessment he states that his pain is completely resolved. I did recommend hospitalization for further evaluation and repeat cardiac biomarkers. I did discuss the case with the hospitalist and rn field case manager. Impression & Plan Chest pain, Subtherapeutic international normalized ratio (INR) Discharge Plan Visit Data Chief Complaint: Chest Pain ED Provider: Az Jones Discharge Problem: Chest pain, Subtherapeutic international normalized ratio (INR) Patient Disposition: Being Evaluated by Hospitalist
[2021-10-16 10:50] LABS: Basophils # (auto) 0.01 K/uL (0-0.2); Basophils % (auto) 0.2 %; Eosinophils # (auto) 0.02 K/uL (0-0.5); Eosinophils % (auto) 0.4 %; Hemoglobin 13.7 g/dL (14.0-18.0); Lymphocytes # (auto) 1.36 K/uL (1.2-3.4); Lymphocytes % (auto) 25.8 %; Mean Corpuscular Hemoglobin 28.9 pg (25-34); Mean Corpuscular Hgb Conc 32.6 g/dL (32-36); Mean Corpuscular Volume 88.6 fL (80-100); Mean Platelet Volume 8.4 fL (7.4-10.4); Monocytes # (auto) 0.54 K/uL (0.11-0.59); Monocytes % (auto) 10.2 %; Neutrophils # (auto) 3.35 K/uL (1.4-6.5); Neutrophils % (auto) 63.4 %; Platelet Count 141 K/uL (130-400); RDW Coefficient of Variation 15.7 % (11.5-14.5); RDW Standard Deviation 50.6 fL (36.4-46.3); Red Blood Count 4.74 M/uL (4.7-6.1); White Blood Count 5.28 K/uL (4.8-10.8)
--- NOTE | 2021-10-16 10:52 | XRay Report ---
SINGLE VIEW CHEST CLINICAL HISTORY: Atypical chest pain FINDINGS: An AP, portable, upright chest radiograph is compared to study dated 06/13/2021 and correlat ed with chest CT dated 03/22/2021. The patient is status post midline sternotomy. A 2-lead cardiac pace maker is unchanged in position. The heart is enlarged noting atherosclerotic calcification of the tho racic aorta. The pulmonary vasculature is noncongested. Chronic interstitial thickening is similar to previous. Scarring/atelectasis is noted at both lung bases. There is no airspace consolidation typic al for pneumonia or large pleural effusion. Numerous pulmonary nodules are unchanged. No pneumothorax is seen. The skeletal structures are osteopenic. The bony thorax is grossly intact. Degenerative mark nge is noted in the shoulders. IMPRESSION: 1. Cardiomegaly and cardiac pacemaker with no radiographic evidence of congestive failure. 2. There is no airspace consolidation typical for pneumonia or large pleural effusion. 3. Numerous pulmonary nodules are again noted. These were better characterized on prior chest CTs. ACT 112: Negative or not required by law. Electronically signed by: Yon Galvez M.D. 10/16/2021 10:50 AM
[2021-10-16 11:07] LABS: Alanine Aminotransferase 35 (12-78); Albumin Level 3.3 gm/dl (3.4-5.0); Aspartate Aminotransferase 29 U/L (15-37); BUN Creatinine Ratio 19.9 (10-20); Blood Urea Nitrogen 17 mg/dl (7-18); Calcium 8.8 mg/dl (8.5-10.1); Carbon Dioxide 26 mmol/L (21-32); Chloride 107 mmol/L (98-107); Est GFR (African American) 95.6 ml/min; Est GFR (Non-African American) 82.5 ml/min; Glucose 154 mg/dl (70-99); Lipase 116 U/L (73-393); Potassium 4.1 mmol/L (3.5-5.1); Sodium 137 mmol/L (136-145)
[2021-10-16 11:12] LABS: Albumin Globulin Ratio 0.9 (0.9-2); Alkaline Phosphatase 166 U/L (45-117); Bilirubin,Total 0.7 mg/dl (0.2-1); Globulin 3.6 gm/dl (2.5-4.0); Total Protein 6.9 gm/dl (6.4-8.2); Troponin I < 0.015 ng/ml (0-0.045)
[2021-10-16] MEDS ORDERED: ONDANSETRON INJ 2 MG/ML 2 ML VIAL IV STA (11:44)
[2021-10-16] MEDS ORDERED: fentaNYL citrate 100 MCG/2 ML VIAL IV STA (11:44)
[2021-10-16 14:29] LABS: INR 1.9 (0.9-1.1); Prothrombin Time 18.1 Seconds (9.0-12.0)
[2021-10-16] MEDS ORDERED: ACETAMINOPHEN 325 MG TAB PO PRN (17:20)
[2021-10-16] MEDS ORDERED: NITROGLYCERIN SL 0.4 MG/TAB TAB SL PRN (17:20)
[2021-10-16] MEDS ORDERED: WARFARIN SOD 5 MG TAB PO SCH ×2 (17:20→18:00)
[2021-10-16] MEDS: FUROSEMIDE 40 MG TAB PO SCH (18:41)
[2021-10-16] MEDS: AMIODARONE 200 MG TAB PO SCH (18:41)
[2021-10-16] MEDS: LOSARTAN POTASSIUM 25 MG TAB PO SCH (18:43)
--- NOTE | 2021-10-16 18:46 | History & Physical Report ---
Date of Service October 16, 2021 Assessment & Plan (1) CAD (coronary artery disease): (2) Chest pain: Plan: -Admit to telemetry -Patient presenting from home with reports of atypical chest pain. Chest pain resolved after IV fentanyl and SL nitro in ED. -In the ED, initial troponin negative and EKG demonstrates a paced rhythm -Continue to trend troponin, resting echo -Cardiology consult, case discussed with Dr. Horvath -Continue ASA, beta-heath (3) Aortic stenosis: (4) Ischemic cardiomyopathy: (5) Chronic systolic CHF (congestive heart failure): Plan: -EF 37% on echo 10/2020 -Appears euvolemic, continue furosemide, ARB (6) Prostate cancer metastatic to lung: Plan: -Follows with Dr. 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: Plan: -No acute issues (11) DM2 (diabetes mellitus, type 2): Plan: -Hgb A1c 6.4 07/2021 -Hold oral agents and utilize NovoLog per protocol while hospitalized (12) AL on CPAP: Plan: -CPAP as per home settings (13) DVT prophylaxis: Plan: -On Coumadin, INR 1.9 Admission and Anticipated Discharge Date Admission Date: October 16, 2021 History of Present Illness Chief Complaint: Chest pain Primary Care Provider: Jones Estrada MD 80-year-old male with PMH DM type II, HLD, AL on CPAP, paroxysmal atrial fibrillation anticoagulated on Coumadin, History of DVT and PE, HTN, CAD, tachybradycardia syndrome s/p pacemaker, ischemic cardiomyopathy EF 37%, metastatic prostate cancer, and other problems to below who presents the ED for evaluation of chest pain. Patient reports he developed chest pain yesterday afternoon while watching TV. Describes the pain is located on the left side of his chest. Patient took several antacids at home without any relief of his symptoms. Rates the pain at its worst a #5/10. Patient reports some mild associated shortness of breath. No diaphoresis, nausea, lightheadedness, dizziness, syncopal event. Patient reports that when he went to bed last evening and put on his CPAP, his symptoms were improved. Patient reports that whenever he woke up this morning the chest pain persisted so he presented to the ED for further evaluation. Patient notes some increasing fatigue over the past couple of weeks. Denies any other recent illnesses, fevers, chills. No abdominal pain, vomiting, diarrhea. Denies urinary symptoms. In the ED, initial troponin is negative and EKG demonstrates a paced rhythm. Patient received IV fentanyl and sublingual nitroglycerin with resolution in pain. Allergies Allergy/AdvReac Type Severity Reaction Status Date / Time No Known Allergies Allergy Verified 10/16/21 11:58 Home Medications Medication Instructions Recorded Confirmed Type glucosamine sulf dipot 1 cap PO BID 02/21/19 10/16/21 History chlr,msm,chond 550 mg-C 30 mg-erum 1 mg capsule (Glucosamine Chondroitin) nitroglycerin 0.4 mg sublingual 0.4 mg SUBLINGUAL DIRECTED PRN 02/21/19 10/16/21 History tablet (Nitrostat) omeprazole 20 mg capsule,delayed 20 mg PO BID 02/21/19 10/16/21 History release potassium chloride 10 mEq 10 meq PO BID 02/21/19 10/16/21 History tablet,extended release(part/cryst) (Klor-Con M) ascorbic acid (vitamin C) 250 mg 500 mg PO QAM 01/08/21 10/16/21 History tablet cholecalciferol (vitamin D3) 25 1,000 mcg PO HS 01/08/21 10/16/21 History mcg (1,000 unit) tablet furosemide 40 mg tablet (Lasix) 40 mg PO QAM 01/09/21 10/16/21 History warfarin 5 mg tablet See Rx Instructions .ROUTE .COMPLEX 01/09/21 10/16/21 History empagliflozin 10 mg tablet 10 mg PO QAM 06/13/21 10/16/21 History (Jardiance) losartan 25 mg tablet 12.5 mg PO QAM 06/13/21 10/16/21 History metoprolol succinate 50 mg 50 mg PO HS 06/13/21 10/16/21 History tablet,extended release 24 hr amiodarone 200 mg tablet 200 mg PO QAM 10/16/21 10/16/21 History aspirin 81 mg tablet,delayed 81 mg PO DAILY 10/16/21 10/16/21 History release loratadine 10 mg tablet 10 mg PO DAILY 10/16/21 10/16/21 History vit C 250 mg-vit E 90 mg-zinc 40 2 tab PO DAILY 10/16/21 10/16/21 History mg-copper 1 qr-howczu-coebhe capsule (PreserVision AREDS-2) Past Med/Surg History Medical History Aortic stenosis Asthma CAD (coronary artery disease) Status post PCI with a BMS to the mid LAD on 05/16/2016. 2.May 26, 2016 diagnostic cardiac catheterization at [facility], Dr. 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 Also, far beyond the stent, there was visible healed dissection flap, Type B, non- obstructive. 3.Status post CABG x 1 with a ABRAMS to LAD for persistent angina, May 2016. 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 Surgical History H/O esophagogastroduodenoscopy Hx of total knee arthroplasty S/P CABG x 1 S/P cholecystectomy S/P hip replacement S/P knee replacement Family History Other Diabetes Heart disease Social History Smoking Status: Former smoker Tobacco Type: Cigarettes Cigarettes Per Day: 40; Second Hand Exposure: No; Hx Alcohol Use: No Hx Substance Use: No Preferred Language: Latvian Communication Ability: Effective Visual Impairment: No Limitations Hearing Ability: Normal Vehicle Refinisher Required: No Beliefs That Will Affect Care: None marital status: Current Living Situation: Spouse Current Living Situation Comment: house Feels Safe at Home: Yes Assistive Devices: Cane Review of Systems Review of Systems: ROS per HPI, all other systems reviewed and negative Physical Exam Constitutional: WD/WN, vitals as above Eyes: PERRL, conjunctivae normal, anicteric sclerae ENMT: external ear and nose normal, oropharynx normal Respiratory: normal respiratory effort, lungs clear to auscultation Cardiovascular: Rate/Rhythm: regular rate and regular rhythm Heart Sounds: + murmur (Systolic, grade 3/6) Vessels: normal peripheral pulses Extremities: no edema Chest (Breasts): Additional Comments: Chest wall not tender to palpation Gastrointestinal (Abdomen): normal bowel sounds, soft, nontender, no hepatosplenomegaly Musculoskeletal: no cyanosis or clubbing, extremities motor strength 5/5 Skin: no rashes, warm and dry Neurologic: PERRL, EOMI, accommodation nl, no face palsy, no dysarthria Psychiatric: A+Ox3, euthymic affect Results & Data Results & Data ([facility]) Vital Signs (Past 12 Hours) Vital Signs Temp Pulse Pulse Resp BP BP Pulse Ox 10/16/21 17:45 66 16 138/92 93 10/16/21 15:26 60 18 134/82 94 10/16/21 14:14 74 18 155/86 H 97 10/16/21 12:59 61 18 148/83 H 96 10/16/21 11:59 62 16 149/89 H 96 10/16/21 10:16 98 10/16/21 10:06 36.9 C 64 20 167/86 H 97 Laboratory Results Short CBC 10/16/21 Range/Units 10:35 WBC 5.28 (4.8-10.8) K/uL Hgb 13.7 L (14.0-18.0) g/dL Hct 42.0 (42-52) % Plt Count 141 (130-400) K/uL BMP 10/16/21 10:35 Sodium 137 Potassium 4.1 Chloride 107 Carbon Dioxide 26 BUN 17 Creatinine 0.83 Glucose 154 H Calcium 8.8 Cardiac Enzymes 10/16/21 10/16/21 Range/Units 10:35 17:37 Troponin I < 0.015 < 0.015 (0-0.045) ng/ml Liver Function 10/16/21 Range/Units 10:35 Total Bilirubin 0.7 (0.2-1) mg/dl AST 29 (15-37) U/L ALT 35 (12-78) Alkaline Phosphatase 166 H D (45-117) U/L Albumin 3.3 L (3.4-5.0) gm/dl Diagnostic Findings Chest X-Ray 10/16/21 10:16 SINGLE VIEW CHEST CLINICAL HISTORY: Atypical chest pain FINDINGS: An AP, portable, upright chest radiograph is compared to study dated 06/13/2021 and correlated with chest CT dated 03/22/2021. The patient is status post midline sternotomy. A 2-lead cardiac pacemaker is unchanged in position. The heart is enlarged noting atherosclerotic calcification of the thoracic aorta. The pulmonary vasculature is noncongested. Chronic interstitial thickening is similar to previous. Scarring/atelectasis is noted at both lung bases. There is no airspace consolidation typical for pneumonia or large pleural effusion. Numerous pulmonary nodules are unchanged. No pneumothorax is seen. The skeletal structures are osteopenic. The bony thorax is grossly intact. Dege nerative change is noted in the shoulders. IMPRESSION: 1. Cardiomegaly and cardiac pacemaker with no radiographic evidence of congestive failure. 2. There is no airspace consolidation typical for pneumonia or large pleural effusion. 3. Numerous pulmonary nodules are again noted. These were better characterized on prior chest CTs. ACT 112: Negative or not required by law. Electronically signed by: Yon Galvez M.D. 10/16/2021 10:50 AM Code Status & VTE Plan Code Status Patient is a full code as per my discussion with him. Supervising Physician Co-Signing Physician Notes Patient is an 80-year-old male with history of coronary artery disease, atrial fibrillation on Coumadin, obstructive sleep apnea and other medical problems presents with history of chest pain, retrosternal, nonradiating, onset at rest associated with some shortness of breath. Initial troponin is negative. EKG showed no signs of ST elevation. Patient x-ray showed no acute findings. On exam patient is obese, no apparent distress, normocephalic atraumatic, EOMI, normal breath sounds, clear to auscultation, S1-S2,+ murmur, trace pedal edema abdomen soft, nontender, normal bowel sounds, alert, awake, oriented, grossly no focal deficits. Patient is admitted for management of chest pain rule out ACS. Trend cardiac enzymes, check resting echo, repeat EKG in the morning. Continue aspirin, metoprolol. Consider cardiology. Check Lipid panel. Further management based on studies. Keep her n.p.o. after midnight. I personally reviewed the record. Patient is interviewed and examined at bedside. Patient's care is coordinated with Chrystal Colón NP. Please refer to the documentation above for details of patient's presentation and for discussion of other issues. (1) Chest pain Chest pain type: unspecified Qualified Code(s): R07.9 - Chest pain, unspecified
[2021-10-16] MEDS ORDERED: DEXTROSE 50% 50 ML SYRINGE IV PRN (18:57)
[2021-10-16] MEDS ORDERED: GLUCOSE 10 TABS/TUBE PO PRN (18:57)
[2021-10-16] MEDS ORDERED: GLUCAGON FOR INJ 1 MG VIAL SQ PRN (18:57)
[2021-10-16] MEDS ORDERED: CARBOHYDRATES FOR HYPOGLYCEMIA PO PRN (18:57)
[2021-10-16] MEDS ORDERED: GLUCOSE 40% GEL 15 GM TUBE PO PRN (18:57)
[2021-10-16] MEDS ORDERED: METOPROLOL SUCC 50MG EXT REL TAB PO SCH (21:00)
[2021-10-16] MEDS: PANTOprazole 40 MG TAB PO SCH (21:06)
[2021-10-16] MEDS: POTASSIUM CHLORIDE 10 MEQ TABCR PO SCH (21:06)
[2021-10-16] MEDS: ASPIRIN 81 MG ECTAB PO SCH (21:07)
[2021-10-16] MEDS: INSULIN ASPART PER UNIT SC SCH (21:40)
[2021-10-17 05:49] LABS: Hematocrit (blood only) 42.5 % (42-52); Hemoglobin 14.1 g/dL (14.0-18.0); Mean Corpuscular Hemoglobin 29.6 pg (25-34); Mean Corpuscular Hgb Conc 33.2 g/dL (32-36); Mean Corpuscular Volume 89.1 fL (80-100); Mean Platelet Volume 8.6 fL (7.4-10.4); Platelet Count 162 K/uL (130-400); RDW Coefficient of Variation 15.7 % (11.5-14.5); Red Blood Count 4.77 M/uL (4.7-6.1); White Blood Count 6.08 K/uL (4.8-10.8)
[2021-10-17 05:58] LABS: Prothrombin Time 18.8 Seconds (9.0-12.0)
[2021-10-17 06:16] LABS: Calcium 8.9 mg/dl (8.5-10.1); Creatinine Clr Calc Pharmacy 76.1 ml/min; Est GFR (African American) 94.3 ml/min; Est GFR (Non-African American) 81.3 ml/min
--- NOTE | 2021-10-17 07:46 | Electrocardiogram Report ---
Test Reason : Blood Pressure : / mmHG Vent. Rate : 074 BPM Atrial Rate : 074 BPM P-R Int : 302 ms QRS Dur : 174 ms QT Int : 446 ms P-R-T Axes : 084 -88 073 degrees QTc Int : 495 ms Atrial-paced rhythm with prolonged AV conduction Left axis deviation Right bundle branch block Septal infarct (cited on or before 28-MAY-2016) Abnormal ECG When compared with ECG of 13-JUN-2021 06:37, Left posterior fascicular block is no longer Present Criteria for Inferior infarct are no longer Present Confirmed by Vicente Guevara ([id number]) on 10/17/2021 7:46:09 AM Referred By: REFERRED SELF Confirmed By:Vicente Guevara
[2021-10-17] MEDS: POTASSIUM CHLORIDE 10 MEQ TABCR PO SCH (08:56)
[2021-10-17] MEDS: PANTOprazole 40 MG TAB PO SCH (08:56)
[2021-10-17] MEDS: LOSARTAN POTASSIUM 25 MG TAB PO SCH (08:56)
[2021-10-17] MEDS: FUROSEMIDE 40 MG TAB PO SCH (08:57)
[2021-10-17] MEDS: ASPIRIN 81 MG ECTAB PO SCH (08:57)
[2021-10-17] MEDS: AMIODARONE 200 MG TAB PO SCH (08:58)
[2021-10-17] MEDS ORDERED: LORATADINE 10 MG TAB PO SCH (09:00)
--- NOTE | 2021-10-17 10:00 | Cardiology Consultation ---
Date of Consultation October 17, 2021 Assessment & Plan (1) Chest pain: The patient is feeling well at present, without recurrence of his discomfort. His symptoms had occurred at rest, and subjectively the patient questions if they may be gastrointestinal. He notes no recent exertional chest pain type symptoms. He remains in sinus rhythm, with chronic right bundle branch block. Echocardiogram reveals stable findings of his known ischemic cardiomyopathy, with LAD territory scar, moderate LV systolic dysfunction, qualitative ejection fraction 35%, unchanged compared to previous baseline, moderate aortic valve stenosis also unchanged. He is not volume overloaded, his chest x-ray findings with regards to his pulmonary nodules are relatively unchanged. At this time, I find that his clinical work-up is reassuring. Would recommend discharge to home on the same cardiac medications including aspirin, metoprolol, losartan, furosemide, Jardiance, as needed sublingual nitroglycerin, potassium chloride, and omeprazole. Outpatient cardiology follow-up recommend, ideally within 2 to 4 weeks. History of Present Illness Attending Physician: Bernard Kruger MD History of Present Illness Mr Lopez is an 80-year-old male with complex cardiac history as outlined below who presented via the emergency room yesterday 10/16/2021 with complaint of midline "chest tightness ". He states that the symptoms first occurred on the afternoon of 10/15/2021, while he was watching the [employer] football game on television. He states that he had sauerkraut for his meal that day, but the symptoms actually started before the sauerkraut. His symptoms persisted and waxed and waned and he believes that perhaps resolved after placement of topical nitroglycerin yesterday. At present, his topical nitroglycerin has been discontinued. Vital signs remained stable, and he is feeling well without any recurrence of his symptoms. He ate his breakfast this morning without difficulty. He notes no recent exertional angina symptoms. He does note recent issues with regards to digestion with frequent episodes of diarrhea and gas. Chest x-ray performed in the emergency department reveals scattered pulmonary nodules, consistent with his history of metastatic prostate carcinoma that are unchanged compared to previous evaluation, without evidence of pleural effusion, infiltrate, or interstitial edema. The patient's INR is therapeutic today at 2. Serial troponin I measurements have been undetectable x3. Liver function tests within normal limits on presentation. Past Cardiac History: 1.ASCVD -Status post PCI with a BMS to the mid LAD on 05/16/2016. -.May 26, 2016 diagnostic cardiac catheterization at [facility], Dr. 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 Also, far beyond the stent, there was visible healed dissection flap, Type B, non- obstructive. -status post CABG x 1 with a ABRAMS to LAD for persistent angina, May 2016. 2.Ischemic cardiomyopathy, EF 35-45% 3. Moderate Aortic valve stenosis 4.Symptomatic paroxysmal atrial fibrillation with a rapid ventricular response status post spontaneous conversion following administration of IV diltiazem, subsequent initiation of antiarrhythmic therapy on January 09, 2021 with amiodarone 5.Tachy-shanita syndrome status post December 25, 2017 dual-chamber pacemaker implantation 6.Peripheral vascular disease 7. Obstructive sleep apnea. 8. Hypertension. 9. Hyperlipidemia. Poor statin tolerance 10.Type II diabetes mellitus 11. Advanced prostate cancer. Diagnosed in 2018. Completed 40 radiation treatments on May 14, 2018. Casodex discontinued due to breast enlargement. -metastatic disease the liver and lungs 12. Iron deficiency anemia 13. COVID in Sep 2020 requiring hospitalization. Allergies Allergy/AdvReac Type Severity Reaction Status Date / Time No Known Allergies Allergy Verified 10/16/21 11:58 Home Medications Medication Instructions Recorded Confirmed Type glucosamine sulf dipot 1 cap PO BID 02/21/19 10/16/21 History chlr,msm,chond 550 mg-C 30 mg-erum 1 mg capsule (Glucosamine Chondroitin) nitroglycerin 0.4 mg sublingual 0.4 mg SUBLINGUAL DIRECTED PRN 02/21/19 10/16/21 History tablet (Nitrostat) omeprazole 20 mg capsule,delayed 20 mg PO BID 02/21/19 10/16/21 History release potassium chloride 10 mEq 10 meq PO BID 02/21/19 10/16/21 History tablet,extended release(part/cryst) (Klor-Con M) ascorbic acid (vitamin C) 250 mg 500 mg PO QAM 01/08/21 10/16/21 History tablet cholecalciferol (vitamin D3) 25 1,000 mcg PO HS 01/08/21 10/16/21 History mcg (1,000 unit) tablet furosemide 40 mg tablet (Lasix) 40 mg PO QAM 01/09/21 10/16/21 History warfarin 5 mg tablet See Rx Instructions .ROUTE .COMPLEX 01/09/21 10/16/21 History empagliflozin 10 mg tablet 10 mg PO QAM 06/13/21 10/16/21 History (Jardiance) losartan 25 mg tablet 12.5 mg PO QAM 06/13/21 10/16/21 History metoprolol succinate 50 mg 50 mg PO HS 06/13/21 10/16/21 History tablet,extended release 24 hr amiodarone 200 mg tablet 200 mg PO QAM 10/16/21 10/16/21 History aspirin 81 mg tablet,delayed 81 mg PO DAILY 10/16/21 10/16/21 History release loratadine 10 mg tablet 10 mg PO DAILY 10/16/21 10/16/21 History vit C 250 mg-vit E 90 mg-zinc 40 2 tab PO DAILY 10/16/21 10/16/21 History mg-copper 1 [id number]-vrvjhn-lgpmab capsule (PreserVision AREDS-2) Patient History Medical History Aortic stenosis Asthma CAD (coronary artery disease) Status post PCI with a BMS to the mid LAD on 05/16/2016. 2.May 26, 2016 diagnostic cardiac catheterization at [facility], Dr. 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 Also, far beyond the stent, there was visible healed dissection flap, Type B, non- obstructive. 3.Status post CABG x 1 with a ABRAMS to LAD for persistent angina, May 2016. 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 Surgical History H/O esophagogastroduodenoscopy Hx of total knee arthroplasty S/P CABG x 1 S/P cholecystectomy S/P hip replacement S/P knee replacement Family History Other Diabetes Heart disease Social History Smoking Status: Never smoker Tobacco Type: Cigarettes Cigarettes Per Day: 40; Second Hand Exposure: No; Hx Alcohol Use: No Hx Substance Use: No Preferred Language: Macedonian Communication Ability: Effective Visual Impairment: No Limitations Hearing Ability: Normal Data Processing Equipment Repairer Required: No Beliefs That Will Affect Care: None marital status: Current Living Situation: Spouse Current Living Situation Comment: Home with Feels Safe at Home: Yes Safety Concerns: Feels Safe At This Time Assistive Devices: Cane Review of Systems Review of Systems: All systems reviewed & are unremarkable except as noted in HPI & below Physical Exam Physical Exam: Temp Pulse Resp BP Pulse Ox 36.9 C 68 16 125/81 95 10/16/21 10:06 10/17/21 09:50 10/17/21 09:50 10/17/21 09:50 10/17/21 09:50 Constitutional: WD/WN, vitals as above Eyes: Left thigh erythema, this is chronic, and he states he has been following with this as an outpatient, surgical intervention had previously been planned, but delayed due to the pandemic. Respiratory: normal respiratory effort, lungs clear to auscultation Cardiovascular: Rate/Rhythm: regular rate and regular rhythm Heart Sounds: + murmur (1/6 systolic murmur) Extremities: no edema Gastrointestinal (Abdomen): normal bowel sounds, soft, nontender, no hepatosplenomegaly Neurologic: PERRL, EOMI, accommodation nl, no face palsy, no dysarthria Results & Data ([facility]) Vital Signs (Past 12 Hours) Vital Signs Pulse Pulse Resp BP Pulse Ox Pulse Ox 10/17/21 09:50 68 16 125/81 95 10/17/21 07:33 91 10/17/21 07:27 64 10/17/21 04:06 115 H 18 150/90 H 92 10/16/21 23:46 88 16 172/96 H 96 10/16/21 22:17 70 16 145/85 H 94 Laboratory Results Cardiac Enzymes 10/16/21 10/16/21 10/16/21 Range/Units 10:35 17:37 23:40 AST 29 (15-37) U/L Troponin I < 0.015 < 0.015 < 0.015 (0-0.045) ng/ml Coagulation 10/16/21 10/17/21 Range/Units 14:02 05:29 PT 18.1 H 18.8 H (9.0-12.0) Seconds Lipids 10/17/21 Range/Units 05:29 Triglycerides 131 (0-150) mg/dl Cholesterol 213 H (0-200) mg/dl HDL Cholesterol 47 mg/dl Cholesterol/HDL Ratio 5 CBC 10/16/21 10/17/21 Range/Units 10:35 05:29 WBC 5.28 6.08 (4.8-10.8) K/uL RBC 4.74 4.77 (4.7-6.1) M/uL Hgb 13.7 L 14.1 (14.0-18.0) g/dL Hct 42.0 42.5 (42-52) % Plt Count 141 162 (130-400) K/uL Neut # (Auto) 3.35 (1.4-6.5) K/uL Lymph # (Auto) 1.36 (1.2-3.4) K/uL [place] # (Auto) 0.54 (0.11-0.59) K/uL Eos # (Auto) 0.02 (0-0.5) K/uL Baso # (Auto) 0.01 (0-0.2) K/uL Comprehensive Metabolic Panel 10/16/21 10/17/21 Range/Units 10:35 05:29 Sodium 137 137 (136-145) mmol/L Potassium 4.1 4.0 (3.5-5.1) mmol/L Chloride 107 103 (98-107) mmol/L Carbon Dioxide 26 28 (21-32) mmol/L BUN 17 15 (7-18) mg/dl Creatinine 0.83 0.86 (0.6-1.4) mg/dl Glucose 154 H 163 H (70-99) mg/dl Calcium 8.8 8.9 (8.5-10.1) mg/dl AST 29 (15-37) U/L ALT 35 (12-78) Alkaline Phosphatase 166 H D (45-117) U/L Total Protein 6.9 (6.4-8.2) gm/dl Albumin 3.3 L (3.4-5.0) gm/dl Intake and Output 10/16/21 10/17/21 10/17/21 22:59 06:59 14:59 Other: Weight 97 kg Weight Measurement Method Built in [facility] Diagnostic Findings EKG performed today 10/17/2021 at 7:27 AM and reviewed independently revealed sinus rhythm with atrial pacing, appropriate A-V conduction delay for pacemaker settings, right bundle branch block, with chronic septal infarct pattern, unchanged compared to yesterday, and unchanged compared to his previous baseline. (1) Chest pain Chest pain type: unspecified Qualified Code(s): R07.9 - Chest pain, unspecified
[2021-10-17] MEDS: INSULIN ASPART PER UNIT SC SCH ×2 (10:01→13:29)
[2021-10-17 11:14] VITALS: TEMP 98.1; O2SAT 98
[2021-10-17] MEDS ORDERED: FAMOTIDINE 10 MG TABLET PO PRN (12:04)
--- NOTE | 2021-10-17 12:10 | Hospitalist Progress Note ---
Date of Service October 17, 2021 Assessment & Plan (1) CAD (coronary artery disease): (2) Chest pain: Plan: Chest pain Rule out ACS; Likely GERD CXR: Pulmonary nodules, unchanged Echo unchanged as well Chest x-ray showed no acute ST changes Continue aspirin, metoprolol, losartan, nitroglycerin as needed Troponin negative Continue PPI We will add Pepcid as needed Needs follow-up with cardiology upon discharge in 2 to 4 weeks (3) Aortic stenosis: Plan: Continue home medications (4) Ischemic cardiomyopathy: Plan: Continue diuretics (5) Chronic systolic CHF (congestive heart failure): Plan: -EF 37% on echo 10/2020 -Appears euvolemic, continue furosemide, ARB (6) Prostate cancer metastatic to lung: Plan: -Follows with Dr. 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 Admission and Anticipated Discharge Date Admission Date: October 16, 2021 Subjective Patient is seen and examined at bedside Chest pain resolved States feeling well today Offers no other complaint Denies any shortness of breath, dizziness, nausea, abdominal pain Discussed with cardiology today Review of Systems Review of Systems: All systems reviewed & are unremarkable except as noted in Subjective Physical Exam Physical Exam: Physical Exam: Vitals signs as noted above General Appearance:Moderately built and nourished, no apparent distress Head: normocephalic, Atraumatic Eyes: normal inspection, EOMI Neck: supple, Trachea midline Respiratory/Chest: Normal breath sounds, CTA Cardiovascular: S1, S2, + murmur Abdomen/GI:Soft, Non tender, Bowel sounds present Extremities/Musculoskeletal:normal inspection, no edema Neurologic/Psych:AAOX3, grossly no focal neurological deficits Skin: normal color, warm Results & Data Results & Data ([facility]) Vital Signs (Past 12 Hours) Vital Signs Temp Pulse Pulse Resp BP Pulse Ox Pulse Ox 10/17/21 11:13 36.7 C 71 18 98 10/17/21 09:50 68 16 125/81 95 10/17/21 07:33 91 10/17/21 07:27 64 10/17/21 04:06 115 H 18 150/90 H 92 Laboratory Results Short CBC 10/17/21 Range/Units 05:29 WBC 6.08 (4.8-10.8) K/uL Hgb 14.1 (14.0-18.0) g/dL Hct 42.5 (42-52) % Plt Count 162 (130-400) K/uL BMP 10/17/21 05:29 Sodium 137 Potassium 4.0 Chloride 103 Carbon Dioxide 28 BUN 15 Creatinine 0.86 Glucose 163 H Calcium 8.9 Cardiac Enzymes 10/16/21 10/16/21 Range/Units 17:37 23:40 Troponin I < 0.015 < 0.015 (0-0.045) ng/ml (1) Chest pain Chest pain type: unspecified Qualified Code(s): R07.9 - Chest pain, unspecified
--- NOTE | 2021-10-17 12:23 | Discharge Summary ---
Date of Service October 17, 2021 Admission HPI Per Admitting Provider 80-year-old male with PMH DM type II, HLD, AL on CPAP, paroxysmal atrial fibrillation anticoagulated on Coumadin, History of DVT and PE, HTN, CAD, tachybradycardia syndrome s/p pacemaker, ischemic cardiomyopathy EF 37%, metastatic prostate cancer, and other problems to below who presents the ED for evaluation of chest pain. Patient reports he developed chest pain yesterday afternoon while watching TV. Describes the pain is located on the left side of his chest. Patient took several antacids at home without any relief of his symptoms. Rates the pain at its worst a #5/10. Patient reports some mild associated shortness of breath. No diaphoresis, nausea, lightheadedness, dizziness, syncopal event. Patient reports that when he went to bed last evening and put on his CPAP, his symptoms were improved. Patient reports that whenever he woke up this morning the chest pain persisted so he presented to the ED for further evaluation. Patient notes some increasing fatigue over the past couple of weeks. Denies any other recent illnesses, fevers, chills. No abdominal pain, vomiting, diarrhea. Denies urinary symptoms. In the ED, initial troponin is negative and EKG demonstrates a paced rhythm. Patient received IV fentanyl and sublingual nitroglycerin with resolution in pain. Admission Exam Per Admitting Provider Physical Exam Constitutional: WD/WN, vitals as above Eyes: PERRL, conjunctivae normal, anicteric sclerae ENMT: external ear and nose normal, oropharynx normal Respiratory: normal respiratory effort, lungs clear to auscultation Cardiovascular: Rate/Rhythm: regular rate and regular rhythm Heart Sounds: + murmur (Systolic, grade 3/6) Vessels: normal peripheral pulses Extremities: no edema Chest (Breasts): Additional Comments: Chest wall not tender to palpation Gastrointestinal (Abdomen): normal bowel sounds, soft, nontender, no hepatosplenomegaly Musculoskeletal: no cyanosis or clubbing, extremities motor strength 5/5 Skin: no rashes, warm and dry Neurologic: PERRL, EOMI, accommodation nl, no face palsy, no dysarthria Psychiatric: A+Ox3, euthymic affect Principal Diagnosis Chest Pain Discharge Data Allergies Allergy/AdvReac Type Severity Reaction Status Date / Time No Known Allergies Allergy Verified 10/16/21 11:58 Consultations 10/16/21 12:15 ED Decision to Admit Stat 10/16/21 13:20 Consult Cardiology Routine Hospital Course (1) CAD (coronary artery disease): (2) Chest pain: Chest pain Rule out ACS; Likely GERD CXR: Pulmonary nodules, unchanged Echo unchanged as well Chest x-ray showed no acute ST changes Continue aspirin, metoprolol, losartan, nitroglycerin as needed Troponin negative Continue PPI We will add Pepcid as needed Needs follow-up with cardiology upon discharge in 2 to 4 weeks (3) Aortic stenosis: Continue home medications (4) Ischemic cardiomyopathy: Continue diuretics (5) Chronic systolic CHF (congestive heart failure): -EF 37% on echo 10/2020 -Appears euvolemic, continue furosemide, ARB (6) Prostate cancer metastatic to lung: -Follows with Dr. 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 Total Time Total Time Spent Total Time Spent (In Minutes): 35 minutes Discharge Plan Discharge Items Patient Disposition: Home - Self-Care Reason For Visit: CHEST PAIN Discharge Diagnosis: Chest Pain Activity: Per Instructions section Exercise/Sports: Gradually increase as tolerated Non-emergency contact: Primary Care Provider and Sp[employer] Fisherman Call non-emergency contact if: you have any medication questions, your symptoms worsen, your pain is concerning for you and you have a fever Follow-up/Referrals: Jones Estrada MD [Primary Care Provider] - (Date & Time 10/24/2021 12:00 PM Provider Jones Estrada MD Department General Internal Medicine [facility] ) Aleja Contreras MD [Hospitalist] - (Date & Time 10/19/2021 8:00 AM Provider Aleja Contreras MD Department Hematology/Oncology [facility] ) Diet: Carb Consistent or DM2 and Heart Healthy Addtl Attending Provider Instructions: Follow-up with your primary care physician Dr. Estrada on 10/24/2021 12:00 PM Follow-up with your art display maker on 10/19/2021 8:00 AM Follow-up with your surveyor oil well directional Dr. Blanco in 2 to 4 weeks as advised Seek immediate medical attention if your symptoms reoccur or worsen Please take all medications as instructed on discharge list below. Please call if you have any questions or problems. You can reach a [facility] hospitalist on duty at [facility] 24 hours a day by calling [phone] Pending Studies at Discharge: No Stand-Alone Forms: [facility] [employer]es[employer], Smoking Cessation Medications and DC Order Prescriptions: New famotidine [Pepcid] 20 mg tablet 20 mg PO DAILY PRN (Reason: dyspepsia) Qty: 30 RF: 0 Continued omeprazole 20 mg capsule,delayed release(DR/EC) 20 mg PO BID RF: 0 potassium chloride [Klor-Con M10] 10 mEq tablet,ER particles/crystals 10 meq PO BID RF: 0 Glucosamine Chondroitin 550-30-1 mg Capsule 1 cap PO BID RF: 0 nitroglycerin [Nitrostat] 0.4 mg Tablet, Sublingual 0.4 mg sublingual DIRECTED PRN (Reason: Chest Pain) RF: 0 ascorbic acid (vitamin C) 250 mg Tablet 500 mg PO QAM RF: 0 cholecalciferol (vitamin D3) 25 mcg (1,000 unit) Tablet 1,000 mcg PO HS RF: 0 warfarin 5 mg Tablet See Rx Instructions .ROUTE .COMPLEX RF: 0 furosemide [Lasix] 40 mg Tablet 40 mg PO QAM RF: 0 metoprolol succinate 50 mg tablet extended release 24 hr 50 mg PO HS RF: 0 losartan 25 mg tablet 12.5 mg PO QAM RF: 0 Jardiance 10 mg tablet 10 mg PO QAM RF: 0 amiodarone 200 mg tablet 200 mg PO QAM RF: 0 aspirin [Aspir-81] 81 mg Tablet,Delayed Release (Dr/Ec) 81 mg PO DAILY RF: 0 loratadine 10 mg Tablet 10 mg PO DAILY RF: 0 PreserVision AREDS-2 250-90-40-1 mg Capsule 2 tab PO DAILY RF: 0 Discharge Orders: Discharge Order (Routine); Ordered 10/17/21 Ordered By: Bernard Kruger Admission Data Admit Date/Time: 10/16/21 12:43 Attending Provider: Bernard Kruger Admit Provider: Bernard Kruger Primary Care Provider: Jones Estrada Other Providers: Pavan Horvath ; Bernard Kruger
--- NOTE | 2021-10-17 14:12 | Electrocardiogram Report ---
Test Reason : Blood Pressure : / mmHG Vent. Rate : 064 BPM Atrial Rate : 064 BPM P-R Int : 254 ms QRS Dur : 168 ms QT Int : 488 ms P-R-T Axes : 039 -89 081 degrees QTc Int : 503 ms Atrial-paced rhythm with prolonged AV conduction Left axis deviation Right bundle branch block Septal infarct (cited on or before 28-MAY-2016) Abnormal ECG When compared with ECG of 16-OCT-2021 10:11, No significant change was found Confirmed by John Benton ([id number]) on 10/17/2021 2:12:08 PM Referred By: REFERRED SELF Confirmed By:John Benton
[2021-10-17 14:59] VITALS: BP 115/75; PULSE 68
[2021-10-17] MEDS ORDERED: WARFARIN SOD 7.5 MG TAB PO SCH (16:00)
== END 2021-10-18 09:29 | disposition home or self-care (01) ==
LOC: EDINP 10:05 → ED 10:05 → EDINP 17:19

== ENCOUNTER 2022-03-17 10:50 | Observation (INO) ==
[2022-03-17] MEDS ORDERED: STAT IV Infusion **Titration per Protocol STA (11:39)
[2022-03-17] MEDS ORDERED: dilTIAZem HCl 5 MG/ML 5 ML VIAL IV STA (11:39)
[2022-03-17] MEDS ORDERED: dilTIAZem HCl 5 MG/ML 5 ML VIAL IV ONE (11:40)
[2022-03-17 11:42] LABS: Basophils # (auto) 0.01 K/uL (0-0.2); Basophils % (auto) 0.2 %; Eosinophils # (auto) 0.01 K/uL (0-0.5); Eosinophils % (auto) 0.2 %; Hematocrit (blood only) 43.3 % (42-52); Hemoglobin 14.6 g/dL (14.0-18.0); Immature Granulocytes # (auto) 0.01 K/uL (0.00-0.02); Immature Granulocytes % (auto) 0.2 %; Lymphocytes # (auto) 0.58 K/uL (1.2-3.4); Lymphocytes % (auto) 11.2 %; Mean Corpuscular Hemoglobin 31.5 pg (25-34); Mean Corpuscular Hgb Conc 33.7 g/dL (32-36); Mean Corpuscular Volume 93.3 fL (80-100); Mean Platelet Volume 9.4 fL (7.4-10.4); Monocytes % (auto) 7.7 %; Neutrophils # (auto) 4.19 K/uL (1.4-6.5); Neutrophils % (auto) 80.5 %; Platelet Count 125 K/uL (130-400); RDW Coefficient of Variation 14.4 % (11.5-14.5); RDW Standard Deviation 49.2 fL (36.4-46.3); Red Blood Count 4.64 M/uL (4.7-6.1)
[2022-03-17] MEDS ORDERED: dilTIAZem HCL 125 MG in DEXTROSE 5% 100 ML IV SCH (11:45)
[2022-03-17] MEDS ORDERED: SODIUM CHLORIDE 0.9% 1000ML 1,000 ML IV SCH (11:45)
[2022-03-17 11:53] LABS: INR 2.5 (0.9-1.1); Partial Thromboplastin Ratio 1.5; Partial Thromboplastin Time 42.1 Seconds (21.0-31.0); Prothrombin Time 25.6 Seconds (9.0-12.0)
[2022-03-17 12:15] LABS: Troponin I High Sensitivity 26.3 pg/ml (0-20)
[2022-03-17 12:56] LABS: Calcium 8.9 mg/dl (8.5-10.1); Est GFR (African American) 99.6 ml/min; Est GFR (Non-African American) 85.9 ml/min; Potassium 3.8 mmol/L (3.5-5.1)
--- NOTE | 2022-03-17 12:59 | XRay Report ---
XR chest 1V portable HISTORY: 81 years-old Male Chest Pain acute atypical chest pain COMPARISON: Chest radiograph 10/16/2021, chest CT 05/26/2021. TECHNIQUE: Portable AP view of the chest FINDINGS: The cardiomediastinal and hilar silhouettes are within normal limits. Prior median sternotomy. Left s ubclavian pacer. No pneumothorax, large pleural effusion or overt pulmonary edema. Chronic interstiti al coarsening. Numerous pulmonary nodules are redemonstrated, better seen on the comparison chest CT. The bones appear grossly intact. IMPRESSION: Chronic findings as above without acute process. ACT 112: Negative or not required by law. The above report was generated using voice recognition software. It may contain grammatical, syntax o r spelling errors. Electronically signed by: Layo Hooks M.D. 03/17/2022 12:58 PM
--- NOTE | 2022-03-17 13:35 | History & Physical Report ---
Date of Service March 17, 2022 Assessment & Plan (1) Atrial fibrillation with RVR: (2) Chronic HFrEF (heart failure with reduced ejection fraction): (3) CAD (coronary artery disease): (4) Cardiac pacemaker in situ: (5) Aortic stenosis: (6) Prostate cancer metastatic to lung: (7) AL on CPAP: (8) DM2 (diabetes mellitus, type 2): Plan: This is a 81-year-old male who has significant past medical history of CAD with history of BMS to mid LAD 05/2016 with eventual CABG ABRAMS to LAD in 2015, chronic HFrEF, PAF anticoagulated on warfarin, TBS status post pacemaker placement, HTN, HLD, AL on CPAP, moderate aortic stenosis, metastatic prostate cancer currently receiving treatment, history of PE/DVT and history of COVID who presents to ED secondary to not feeling well for 2 to 3 days. Atrial fibrillation with RVR Admit to PCU Cardizem drip was stopped in ED due to hypotension Give Metoprol tartrate 25 mg x 1 now Metoprolol tartrate 25mg po TID, prn IV lopressor 2.5mg continue warfarin, INR therapeutic, last INR in [facility] 02/24 was 1.79 pacer interrogated in ED, await report last echo 10/2021 revealed hypokinesis to akinesis of large area involving the septal, inferior wall and apex, EF 36%, grade 1 diastolic dysfunction, moderate to severe defer to cards for repeat echo cycle trops give 20meq KCL x 1 now, obtain mag level keep K and Mag > 4.0 and 2.0 respectively continue daily amiodarone Chronic HFrEf, EF 36%, well compensated on admission CAD hx of BMS and CABG ABRAMS to LAD 05/2016 TBS s/p PPM HTN Moderate continue asa, warfarin hold metoprolol succinate and losartan for now (holding losartan due low blood pressure in ED T2DM a1c 7.4 11/2021, obtain a1c in a.m. hold jardiance lantus/novolog per protocol Metastatic prostate Ca follows Dr. Contreras currently receiving Lupron, and daily abiraterone and prednisone AL on CPAP CPAP at HS Diet: Carb consistent, heart healthy, low sodium DVT ppx: continue warfarin Dispo: PCU FULL CODE PCP: Sean Pt was seen and examined in collaboration with Dr. Membreno, please see addendum History of Present Illness Chief Complaint: Not feeling well x 2-3 days. Primary Care Provider: Jones Estrada MD This is a 81-year-old male who has significant past medical history of CAD with history of BMS to mid LAD 05/2016 with eventual CABG ABRAMS to LAD in 2015, chronic HFrEF, PAF anticoagulated on warfarin, TBS status post pacemaker placement, HTN, HLD, AL on CPAP, moderate aortic stenosis, metastatic prostate cancer currently receiving treatment, history of PE/DVT and history of COVID who presents to ED secondary to not feeling well for 2 to 3 days. He complains of not feeling well past 2-3 days. He complains of tired, fatigue and weakness. T his morning he woke up and was on his way to a car show when he developed increasing shortness of breath and feeling more ill and decided to turn around and come home. He has chronic SOB but feels worse than baseline He also had 2-3 episodes of diarrhea this morning. He describes it as loose, but not bloody or dark tarry. He has diarrhea off and on chronically. He denies any recent illness, f/c/s, chest pain, cough, uri sx, hemoptysis, n/v/abd pain, or change in urination. He has hx of prostate cancer for which he follows Dr. Contreras and is still receiving treatment. Pt and opted to summon EMS. He was found to be in A. fib with RVR with heart rates into the 170s. In route he received a diltiazem bolus of 20 mg. He continued to have elevated heart rates and received additional diltiazem bolus in ED and started on drip. Patient subsequently became hypotensive and heart rate improved to 120s. Diltiazem drip was turned off and he was placed on gentle IV fluids. His pressure normalized. His troponin was mildly elevated 26.3. Pacemaker was interrogated which revealed A. fib with RVR. CBC and CMP were generally unremarkable. INR was 2.5. Chest x-ray without acute cardiopulmonary findings. Allergies Allergy/AdvReac Type Severity Reaction Status Date / Time No Known Allergies Allergy Verified 10/16/21 11:58 Home Medications Medication Instructions Recorded Confirmed Type glucosamine sulf dipot 1 cap PO BID 02/21/19 03/17/22 History chlr,msm,chond 550 mg-C 30 mg-erum 1 mg capsule (Glucosamine Chondroitin) nitroglycerin 0.4 mg sublingual 0.4 mg SUBLINGUAL DIRECTED PRN 02/21/19 03/17/22 History tablet (Nitrostat) omeprazole 20 mg capsule,delayed 20 mg PO BID 02/21/19 03/17/22 History release potassium chloride 10 mEq 10 meq PO DAILY 02/21/19 03/17/22 History tablet,extended release(part/cryst) (Klor-Con M) cholecalciferol (vitamin D3) 25 1,000 mcg PO HS 01/08/21 03/17/22 History mcg (1,000 unit) tablet warfarin 5 mg tablet 7.5 mg PO MOWEFR@1600 01/09/21 03/17/22 History empagliflozin 10 mg tablet 10 mg PO QAM 06/13/21 03/17/22 History (Jardiance) losartan 25 mg tablet 12.5 mg PO QAM 06/13/21 03/17/22 History metoprolol succinate 50 mg 50 mg PO HS 06/13/21 03/17/22 History tablet,extended release 24 hr amiodarone 200 mg tablet 200 mg PO QAM 10/16/21 03/17/22 History aspirin 81 mg tablet,delayed 81 mg PO DAILY 10/16/21 03/17/22 History release loratadine 10 mg tablet 10 mg PO DAILY 10/16/21 03/17/22 History vit C 250 mg-vit E 90 mg-zinc 40 2 tab PO DAILY 10/16/21 03/17/22 History mg-copper 1 dm-rldexs-pbgpab capsule (PreserVision AREDS-2) abiraterone 250 mg tablet 1,000 mg PO DAILY 03/17/22 03/17/22 History famotidine 20 mg tablet (Pepcid) 20 mg PO BID 03/17/22 03/17/22 History fluticasone propionate 50 2 spray INTRANASAL BID 03/17/22 03/17/22 History mcg/actuation nasal spray,suspension prednisone 5 mg tablet 5 mg PO BID 03/17/22 03/17/22 History warfarin 5 mg tablet 10 mg PO SUTUTHSA@1600 03/17/22 03/17/22 History Past Med/Surg History Medical History Aortic stenosis Asthma CAD (coronary artery disease) Status post PCI with a BMS to the mid LAD on 05/16/2016. 2.May 26, 2016 diagnostic cardiac catheterization at [facility], Dr. 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 Also, far beyond the stent, there was visible healed dissection flap, Type B, non- obstructive. 3.Status post CABG x 1 with a ABRAMS to LAD for persistent angina, May 2016. 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 Surgical History H/O esophagogastroduodenoscopy Hx of total knee arthroplasty S/P CABG x 1 S/P cholecystectomy S/P hip replacement S/P knee replacement Family History Other Diabetes Heart disease Social History Smoking Status: Former smoker Tobacco Type: Cigarettes Cigarettes Per Day: 40; Second Hand Exposure: No; Hx Alcohol Use: No Hx Substance Use: No Preferred Language: Syriac Communication Ability: Effective Visual Impairment: No Limitations Hearing Ability: Normal Frame Repairer Required: No Beliefs That Will Affect Care: None marital status: Current Living Situation: Spouse Current Living Situation Comment: Home with Feels Safe at Home: Yes Assistive Devices: None Review of Systems Review of Systems: All systems reviewed & are unremarkable except as noted in HPI & below Physical Exam Physical Exam: Please refer to Dr. Membreno attending addendum for physical exam findings. Results & Data Results & Data ([facility]) Vital Signs (Past 12 Hours) Vital Signs Temp Pulse Resp BP Pulse Ox 03/17/22 13:20 114 H 14 89/58 L 94 03/17/22 13:17 127 H 15 77/60 L 96 03/17/22 13:16 154 H 13 76/62 L 95 03/17/22 13:15 103 H 19 98 03/17/22 13:00 150 H 20 104/63 95 03/17/22 12:45 123 H 15 103/64 93 03/17/22 12:30 105 H 15 107/64 92 03/17/22 12:15 107 H 12 110/60 97 03/17/22 12:00 95 H 14 100/63 94 03/17/22 11:58 98 H 16 92/69 L 96 03/17/22 11:46 99 H 18 93/72 L 90 03/17/22 11:45 88 15 94 03/17/22 11:42 117 H 12 105/76 96 03/17/22 11:38 147 H 20 107/72 94 03/17/22 11:31 123 H 16 103/57 L 92 03/17/22 11:30 124 H 16 92 03/17/22 11:15 124 H 10 L 94 03/17/22 11:03 36.8 C 123 H 16 117/77 94 03/17/22 11:00 108 H 16 95 03/17/22 10:59 107 H 19 95 Diagnostic Findings Chest X-Ray 03/17/22 11:16 XR chest 1V portable HISTORY: 81 years-old Male Chest Pain acute atypical chest pain COMPARISON: Chest radiograph 10/16/2021, chest CT 05/26/2021. TECHNIQUE: Portable AP view of the chest FINDINGS: The cardiomediastinal and hilar silhouettes are within normal limits. Prior median sternotomy. Left subclavian pacer. No pneumothorax, large pleural effusion or overt pulmonary edema. Chronic interstitial coarsening. Numerous pulmonary nodules are redemonstrated, better seen on the comparison chest CT. The bones appear grossly intact. IMPRESSION: Chronic findings as above without acute process. ACT 112: Negative or not required by law. The above report was generated using voice recognition software. It may contain grammatical, syntax or spelling errors. Electronically signed by: Layo Hooks M.D. 03/17/2022 12:58 PM Medications Administered Medication List Diltiazem HCl 125 mg/ Dextrose 125 mls @ 5 mls/hr IV .Q24H [facility]; Protocol Stop: 04/16/22 11:44 Last Admin: 03/17/22 11:56 Dose: 5 mg/hr, 5 mls/hr Documented by: [id number] Cosigned by: [id number] Sodium Chloride (Nss 1000ml) 1,000 mls @ 80 mls/hr IV .[id number] KENDRICK Stop: 04/16/22 11:44 Last Admin: 03/17/22 11:45 Dose: 80 mls/hr Documented by: [id number] Discontinued Medications Diltiazem HCl (Diltiazem Hcl 5 Mg/Ml 5 Ml Vial) 25 mg IV NOW STA Stop: 03/17/22 11:40 Last Admin: 03/17/22 11:45 Dose: 25 mg Documented by: [id number] Cosigned by: [id number] Diltiazem HCl (Diltiazem Hcl 5 Mg/Ml 5 Ml Vial) Confirm Administered Dose 25 mg IV .STK-MED ONE Stop: 03/17/22 11:41 Last Admin: 03/17/22 11:52 Dose: Not Given Documented by: [id number] Miscellaneous (Stat Iv Infusion Titration Per Protocol) 1 ea N/A NOW STA Stop: 03/17/22 11:40 Last Admin: 03/17/22 11:53 Dose: Not Given Documented by: [id number] ECG Rate (beats per minute): 111 Rhythm: atrial fibrillation Findings: + RBBB COVID-19 Results Results COVID-19 Adm Lab Results: RBC 4.64 M/uL (4.7-6.1) L 03/17/22 WBC 5.20 K/uL (4.8-10.8) 03/17/22 Hgb 14.6 g/dL (14.0-18.0) 03/17/22 Hct 43.3 % (42-52) 03/17/22 Plt Count 125 K/uL (130-400) L 03/17/22 Neutrophils (%) (Auto) 80.5 % 03/17/22 Lymphocytes (%) (Auto) 11.2 % 03/17/22 Monocytes # (Auto) 0.40 K/uL (0.11-0.59) 03/17/22 Eosinophils # (Auto) 0.01 K/uL (0-0.5) 03/17/22 Immature Granulocyte % (Auto) 0.2 % 03/17/22 Neutrophils # (Auto) 4.19 K/uL (1.4-6.5) 03/17/22 Lymphocytes # (Auto) 0.58 K/uL (1.2-3.4) L 03/17/22 Monocytes # (Auto) 0.40 K/uL (0.11-0.59) 03/17/22 Eosinophils # (Auto) 0.01 K/uL (0-0.5) 03/17/22 Basophils # (Auto) 0.01 K/uL (0-0.2) 03/17/22 Immature Granulocyte # (Auto) 0.01 K/uL (0.00-0.02) 03/17/22 Na 139 mmol/L (136-145) 03/17/22 K 3.8 mmol/L (3.5-5.1) 03/17/22 Cl 107 mmol/L (98-107) 03/17/22 CO2 20 mmol/L (21-32) L 03/17/22 Anion Gap 12 (3-11) H 03/17/22 BUN 17 mg/dl (6-23) 03/17/22 Creatinine 0.74 mg/dl (0.6-1.4) 03/17/22 BUN/Creatinine Ratio 23.0 (10-20) H 03/17/22 Glucose Level 192 mg/dl (70-99(Fasting)) H 03/17/22 Ca 8.9 mg/dl (8.5-10.1) 03/17/22 PTT 42.1 Seconds (21.0-31.0) H 03/17/22 INR 2.5 (0.9-1.1) H 03/17/22 SARS-CoV-2, RNA, NAAT NEGATIVE (NEGATIVE) 03/17/22 Chest X-Ray 03/17/22 Code Status & VTE Plan Code Status FULL CODE VTE Prophylaxis Plan VTE Prophylaxis will be ordered: No Supervising Physician Co-Signing Physician Notes History and physical exam performed by me. History notable for 81-year-old man with history of chronic systolic heart failure, paroxysmal A. fib, tachybradycardia syndrome, CAD status post stent to LAD, pacemaker in situ, DM type II, prostate cancer on treatment, AL on CPAP at bedtime who presents with shortness of breath. Patient reported that he has not been feeling well for the past few days. [place] worse today with shortness of breath necessitating presentation to the ER. Did not really have palpitations. Reported 2-3 episodes of loose stool this morning. Physical exam General: Well hydrated, obese, no acute distress and not ill appearing Eyes: PERRL, left lower palpebral conjunctiva hyperemic, not pale, anicteric sclerae, EOM intact bilaterally ENMT: External ear and nose normal, oropharynx normal Respiratory: Normal respiratory effort, no respiratory distress, lungs clear to auscultation, no crackles and no wheezes Cardiovascular: Tachycardic, pulse irregularly irregular, S1 S2, systolic murmur Gastrointestinal (Abdomen): Abdomen is not distended, soft, non-tender to palpation, no guarding, no palpable hepatosplenomegaly, normal bowel sounds Musculoskeletal: No cyanosis or clubbing. No pedal edema Neurologic: Alert and oriented x 3, No focal weakness, sensation grossly intact Psychiatric: Alert and oriented x 3, euthymic affect, no depressed affect Afib with RVR Was put on IV cardizem in ER. Held due to hypotension Patient takes metoprolol succinate 50mg HS. Give metoprolol tartarate 25mg TID for now with IV lopressor prn Continue amiodarone INR is therapeutic EKG reviewed. Echo from 10/2021 reviewed Hold further IVF after current one Hold losartan for now due to hypotension Card consult Agree with other plans as detailed by Ethel Chao PA-C
[2022-03-17] MEDS ORDERED: METOPROLOL TARTRATE 25 MG TAB PO STA (14:15)
[2022-03-17] MEDS ORDERED: POTASSIUM CHLORIDE CRTAB 20 MEQ TABCR PO STA (14:15)
--- NOTE | 2022-03-17 14:22 | Communication Note ---
Date of Service: March 17, 2022 History and physical exam performed by me. History notable for 81-year-old man with history of chronic systolic heart failure, paroxysmal A. fib, tachybradycardia syndrome, CAD status post stent to LAD, pacemaker in situ, DM type II, prostate cancer on treatment, AL on CPAP at bedtime who presents with shortness of breath. Patient reported that he has not been feeling well for the past few days. [place] worse today with shortness of breath necessitating presentation to the ER. Did not really have palpitations. Reported 2-3 episodes of loose stool this morning. Physical exam General: Well hydrated, obese, no acute distress and not ill appearing Eyes: PERRL, left lower palpebral conjunctiva hyperemic, not pale, anicteric sclerae, EOM intact bilaterally ENMT: External ear and nose normal, oropharynx normal Respiratory: Normal respiratory effort, no respiratory distress, lungs clear to auscultation, no crackles and no wheezes Cardiovascular: Tachycardic, pulse irregularly irregular, S1 S2, systolic murmur Gastrointestinal (Abdomen): Abdomen is not distended, soft, non-tender to palpation, no guarding, no palpable hepatosplenomegaly, normal bowel sounds Musculoskeletal: No cyanosis or clubbing. No pedal edema Neurologic: Alert and oriented x 3, No focal weakness, sensation grossly intact Psychiatric: Alert and oriented x 3, euthymic affect, no depressed affect Afib with RVR Was put on IV cardizem in ER. Held due to hypotension Patient takes metoprolol succinate 50mg HS. Give metoprolol tartarate 25mg TID f or now with IV lopressor prn Continue amiodarone INR is therapeutic EKG reviewed. Echo from 10/2021 reviewed Hold further IVF after current one Hold losartan for now due to hypotension Card consult Agree with other plans as detailed by Ethel Chao PA-C
[2022-03-17 14:58] LABS: Magnesium 1.9 mg/dl (1.7-2.4)
[2022-03-17 15:01] LABS: Troponin I High Sensitivity 36.2 pg/ml (0-20)
[2022-03-17] MEDS ORDERED: MAGNESIUM SULFATE / D5W 1 GM/100 ML BAG IV ONE (15:30)
[2022-03-17] MEDS ORDERED: DEXTROSE 50% 50 ML SYRINGE IV PRN (16:38)
[2022-03-17] MEDS ORDERED: GLUCOSE 10 TABS/TUBE PO PRN (16:38)
[2022-03-17] MEDS ORDERED: ONDANSETRON INJ 2 MG/ML 2 ML VIAL IV PRN (16:38)
[2022-03-17] MEDS ORDERED: GLUCAGON FOR INJ 1 MG VIAL SQ PRN (16:38)
[2022-03-17] MEDS ORDERED: ALUMINUM/MAGNESIUM SUSP 30 ML UDC PO PRN (16:38)
[2022-03-17] MEDS ORDERED: CARBOHYDRATES FOR HYPOGLYCEMIA PO PRN (16:38)
[2022-03-17] MEDS ORDERED: METOPROLOL TARTRATE 1 MG/ML VIAL IV PRN (16:38)
[2022-03-17] MEDS ORDERED: MAGNESIUM HYDROXIDE SUSP 30 ML UDC PO PRN (16:38)
[2022-03-17] MEDS ORDERED: GLUCOSE 40% GEL 15 GM TUBE PO PRN (16:38)
[2022-03-17] MEDS ORDERED: POLYETHYLENE (MIRALAX) 17 GM PACK PO PRN (16:38)
[2022-03-17] MEDS ORDERED: ACETAMINOPHEN 325 MG TAB PO PRN (16:38)
[2022-03-17] MEDS ORDERED: WARFARIN SOD 7.5 MG TAB PO SCH (17:15)
[2022-03-17] MEDS: INSULIN ASPART PER UNIT SC SCH ×2 (17:16→21:24)
--- NOTE | 2022-03-17 19:36 | Emergency Department Note ---
History of Present Illness General Chief Complaint: Cardiac Assessment Stated Complaint: SOB, CARDIAC SX Time Seen by Provider: 03/17/22 11:11 History of Present Illness Provider Complaint: + rapid heart beat, + palpitations and + atrial fibrillation Onset (ago): 1 day(s) Duration: + Constant Current Pain Intensity: 0 Context: + occurred during rest Arrhythmia history: + atrial fibrillation and + on anti-coagulants (coumadin) Associated symptoms: + shortness of breath; no chest pain, no syncope, no near- syncope, no nausea, no vomiting, no anxiety, no diaphoresis or no cough Treatments prior to arrival: + calcium channel heath (cardizem 20 mg IVP via EMS) Home Medications Medication Instructions Recorded Confirmed Type glucosamine sulf dipot 1 cap PO BID 02/21/19 03/17/22 History chlr,msm,chond 550 mg-C 30 mg-erum 1 mg capsule (Glucosamine Chondroitin) nitroglycerin 0.4 mg sublingual 0.4 mg SUBLINGUAL DIRECTED PRN 02/21/19 03/17/22 History tablet (Nitrostat) omeprazole 20 mg capsule,delayed 20 mg PO BID 02/21/19 03/17/22 History release potassium chloride 10 mEq 10 meq PO DAILY 02/21/19 03/17/22 History tablet,extended release(part/cryst) (Klor-Con M) cholecalciferol (vitamin D3) 25 1,000 mcg PO HS 01/08/21 03/17/22 History mcg (1,000 unit) tablet warfarin 5 mg tablet 7.5 mg PO MOWEFR@1600 01/09/21 03/17/22 History empagliflozin 10 mg tablet 10 mg PO QAM 06/13/21 03/17/22 History (Jardiance) losartan 25 mg tablet 12.5 mg PO QAM 06/13/21 03/17/22 History metoprolol succinate 50 mg 50 mg PO HS 06/13/21 03/17/22 History tablet,extended release 24 hr amiodarone 200 mg tablet 200 mg PO QAM 10/16/21 03/17/22 History aspirin 81 mg tablet,delayed 81 mg PO DAILY 10/16/21 03/17/22 History release loratadine 10 mg tablet 10 mg PO DAILY 10/16/21 03/17/22 History vit C 250 mg-vit E 90 mg-zinc 40 2 tab PO DAILY 10/16/21 03/17/22 History mg-copper 1 [id number] capsule (PreserVision AREDS-2) abiraterone 250 mg tablet 1,000 mg PO DAILY 03/17/22 03/17/22 History famotidine 20 mg tablet (Pepcid) 20 mg PO BID 03/17/22 03/17/22 History fluticasone propionate 50 2 spray INTRANASAL BID 03/17/22 03/17/22 History mcg/actuation nasal spray,suspension prednisone 5 mg tablet 5 mg PO BID 03/17/22 03/17/22 History warfarin 5 mg tablet 10 mg PO SUTUTHSA@1600 03/17/22 03/17/22 History Allergies Allergy/AdvReac Type Severity Reaction Status Date / Time No Known Allergies Allergy Verified 10/16/21 11:58 Past Med/Surg History Medical History Aortic stenosis Asthma CAD (coronary artery disease) Status post PCI with a BMS to the mid LAD on 05/16/2016. 2.May 26, 2016 diagnostic cardiac catheterization at [facility], Dr. 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 Also, far beyond the stent, there was visible healed dissection flap, Type B, non-obstructive. 3.Status post CABG x 1 with a ABRAMS to LAD for persistent angina, May 2016. 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 Surgical History H/O esophagogastroduodenoscopy Hx of total knee arthroplasty S/P CABG x 1 S/P cholecystectomy S/P hip replacement S/P knee replacement Family History Other Diabetes Heart disease Social History Smoking Status: Former smoker Tobacco Type: Cigarettes Cigarettes Per Day: 40; Second Hand Exposure: No; Hx Alcohol Use: No Hx Substance Use: No Preferred Language: Wallisian Communication Ability: Effective Visual Impairment: No Limitations Hearing Ability: Normal Space Control Agent Required: No Beliefs That Will Affect Care: None marital status: Current Living Situation: Spouse Current Living Situation Comment: Home with Other Information That Helps Us Care for You: No Feels Safe at Home: Yes Safety Concerns: Feels Safe At This Time Assistive Devices: Cane Assistive Devices Comment: "Occasional" use of cane Review of Systems A total of 10 systems reviewed and were otherwise negative Physical Exam Vital Signs: Vital Signs - 24 hr 03/17/22 10:59 03/17/22 11:00 03/17/22 11:03 Temperature 36.8 C Temperature Source Oral Pulse Rate 107 H 108 H 123 H Pulse Rate from Sp O2 Sensor 96 H 88 Pulse Rhythm Irregular Respiratory Rate 19 16 16 Respiratory Effort / Characteristics Non-Labored Sponta neous Respiratory Depth Normal Respiratory Patter n Regular Blood Pressure 117/77 Blood Pressure Delia n 90 Blood Pressure Pos ition Semi-fowlers Pulse Oximetry 95 95 94 Oxygen Delivery Me thod Room Air Room Air Room Air Sepsis Recent Feve r Within 48 Hours No Sepsis New/Unexpla ined Change in Men celi Status N/A Sepsis Action Take n by Nursing No Action Required 03/17/22 11:15 03/17/22 11:30 03/17/22 11:31 Temperature Temperature Source Pulse Rate 124 H 124 H 123 H Pulse Rate from Sp O2 Sensor 112 H 118 H 89 Pulse Rhythm Respiratory Rate 10 L 16 16 Respiratory Effort / Characteristics Respiratory Depth Respiratory Patter n Blood Pressure 103/57 L Blood Pressure Delia n 72 Blood Pressure Pos ition Pulse Oximetry 94 92 92 Oxygen Delivery Me thod Room Air Room Air Room Air Sepsis Recent Feve r Within 48 Hours Sepsis New/Unexpla ined Change in Men celi Status Sepsis Action Take n by Nursing 03/17/22 11:38 03/17/22 11:42 03/17/22 11:45 Temperature Temperature Source Pulse Rate 147 H 117 H 88 Pulse Rate from Sp O2 Sensor 125 H 130 H 92 H Pulse Rhythm Respiratory Rate 20 12 15 Respiratory Effort / Characteristics Respiratory Depth Respiratory Patter n Blood Pressure 107/72 105/76 Blood Pressure Delia n 83 85 Blood Pressure Pos ition Pulse Oximetry 94 96 94 Oxygen Delivery Me thod Room Air Room Air Room Air Sepsis Recent Feve r Within 48 Hours Sepsis New/Unexpla ined Change in Men celi Status Sepsis Action Take n by Nursing 03/17/22 11:46 03/17/22 11:58 03/17/22 12:00 Temperature Temperature Source Pulse Rate 99 H 98 H 95 H Pulse Rate from Sp O2 Sensor 88 81 79 Pulse Rhythm Respiratory Rate 18 16 14 Respiratory Effort / Characteristics Respiratory Depth Respiratory Patter n Blood Pressure 93/72 L 92/69 L 100/63 Blood Pressure Delia n 79 76 75 Blood Pressure Pos ition Pulse Oximetry 90 96 94 Oxygen Delivery Me thod Room Air Room Air Room Air Sepsis Recent Feve r Within 48 Hours Sepsis New/Unexpla ined Change in Men celi Status Sepsis Action Take n by Nursing 03/17/22 12:15 03/17/22 12:30 03/17/22 12:45 Temperature Temperature Source Pulse Rate 107 H 105 H 123 H Pulse Rate from Sp O2 Sensor 83 84 83 Pulse Rhythm Respiratory Rate 12 15 15 Respiratory Effort / Characteristics Respiratory Depth Respiratory Patter n Blood Pressure 110/60 107/64 103/64 Blood Pressure Delia n 76 78 77 Blood Pressure Pos ition Pulse Oximetry 97 92 93 Oxygen Delivery Me thod Room Air Room Air Room Air Sepsis Recent Feve r Within 48 Hours Sepsis New/Unexpla ined Change in Men celi Status Sepsis Action Take n by Nursing 03/17/22 13:00 03/17/22 13:15 03/17/22 13:16 Temperature Temperature Source Pulse Rate 150 H 103 H 154 H Pulse Rate from Sp O2 Sensor 101 H 91 H 99 H Pulse Rhythm Respiratory Rate 20 19 13 Respiratory Effort / Characteristics Respiratory Depth Respiratory Patter n Blood Pressure 104/63 76/62 L Blood Pressure Delia n 76 66 Blood Pressure Pos ition Pulse Oximetry 95 98 95 Oxygen Delivery Me thod Room Air Room Air Room Air Sepsis Recent Feve r Within 48 Hours Sepsis New/Unexpla ined Change in Men celi Status Sepsis Action Take n by Nursing 03/17/22 13:17 03/17/22 13:20 Temperature Temperature Source Pulse Rate 127 H 114 H Pulse Rate from Sp O2 Sensor 81 87 Pulse Rhythm Respiratory Rate 15 14 Respiratory Effort / Characteristics Respiratory Depth Respiratory Patter n Blood Pressure 77/60 L 89/58 L Blood Pressure Delia n 65 68 Blood Pressure Pos ition Pulse Oximetry 96 94 Oxygen Delivery Me thod Room Air Room Air Sepsis Recent Feve r Within 48 Hours Sepsis New/Unexpla ined Change in Men celi Status Sepsis Action Take n by Nursing Physical Exam: Physical Exam GENERAL: He is oriented to person, place, and time. He appears well-developed and well-nourished. He does not appear distressed. HENT: Exam performed. - Head: Normocephalic and atraumatic. - Right Ear: External ear normal. No mastoid tenderness. - Left Ear: External ear normal. No mastoid tenderness. - Mouth/Throat: The oropharynx is clear and moist. No trismus in the jaw. No dental abscesses or uvula swelling. No oropharyngeal exudate or tonsillar absce sses. EYES: Conjunctivae and EOM are normal. Pupils are equal, round, and reactive to light. Right eye exhibits no discharge. Left eye exhibits no discharge. No scleral icterus. NECK: Normal range of motion. Neck supple. No JVD present. No spinous process tenderness present. No carotid bruit present. No rigidity. No tracheal deviation and normal range of motion present. No Brudzinski's sign and no Kernig's sign noted. CV: Normal rate, irregular rhythm, normal heart sounds and intact distal pulses. There is no peripheral edema. Palpable radial pulses bue. PULM/CHEST: Effort normal and breath sounds normal. No respiratory distress. No stridor. He has no wheezes. He has no rales. - Chest Wall: He exhibits no tenderness. ABD: The abdomen is soft. Bowel sounds are normal. He has no distension. No mass is present. There is no tenderness. There is no rebound, no guarding, no Logan's sign and no tenderness at McBurney's point. Rovsig negative. MUSC/SKEL: Normal range of motion. There is no peripheral edema, tenderness or deformity. LYMPH: No cervical adenopathy. NEURO: He is alert and oriented to person, place, and time. He has normal strength. No cranial nerve deficit or sensory deficit. Coordination and gait normal. GCS eye subscore is 4. GCS verbal subscore is 5. GCS motor subscore is 6. Cerebellar tests wnl. SKIN: Skin is warm and dry. He is not diaphoretic. PSYCH: He has a normal mood and affect. Behavior is normal. Judgment and thought content normal. Course Course 1111: The patient was evaluated in room C7. A complete history and physical exam was performed Cardiac monitoring: An order was placed for continuous cardiac monitoring. The monitor shows a rate of 110 with atrial fibrilation rhythm Patient heart rate is controlled status post Cardizem by EMS. 1120: Shawna restaurant district manager was able to obtain EKG from [facility] and patient has a persistent right bundle branch block. 1150: I went to go reassess the patient and the patient was back into A. fib with RVR with a rate of 140-160. Patient was given Cardizem 25 mg IV push which improved his ventricular rate and the patient will be started on Cardizem drip. 1152: Abel from [employer] stated the patient has been having A. fib with a ventricular rate in the 170s over the last 2 days. He states that the device is functioning fine. 1325: On reassessment the patient is hypotensive. Patient reports no chest pain difficulty breathing. He reports his palpitations feel better. Patient's ventricular rate is within normal limits. Cardizem drip was shut off and patient was given IV fluid bolus. Labs within normal limits with elevation of elevated troponin. Patient will be admitted to the [facility] hospitalist team. Administered Medications Insulin Aspart (Insulin Aspart Per Unit) 0 units SC ACHS [facility] Stop: 04/16/22 16:37 Last Admin: 03/17/22 17:16 Dose: 4 units Documented by: [id number] Cosigned by: [id number] Warfarin Sodium (Warfarin Sod 7.5 Mg Tab) 7.5 mg PO MOWEFR@1600 [facility] Stop: 04/16/22 17:14 Last Admin: 03/17/22 17:32 Dose: 7.5 mg Documented by: [id number] Discontinued Medications Diltiazem HCl (Diltiazem Hcl 5 Mg/Ml 5 Ml Vial) 25 mg IV NOW [facility] Stop: 03/17/22 11:40 Last Admin: 03/17/22 11:45 Dose: 25 mg Documented by: [id number] Cosigned by: [id number] Diltiazem HCl (Diltiazem Hcl 5 Mg/Ml 5 Ml Vial) Confirm Administered Dose 25 mg IV .STK-MED ONE Stop: 03/17/22 11:41 Last Admin: 03/17/22 11:52 Dose: Not Given Documented by: [id number] Diltiazem HCl 125 mg/ Dextrose 125 mls @ 5 mls/hr IV .Q24H [facility]; Protocol Stop: 04/16/22 11:44 Last Titration: 03/17/22 17:16 Dose: 0 mg/hr, 0 mls/hr Documented by: [id number] Cosigned by: [id number] Admin: 03/17/22 11:56 Dose: 5 mg/hr, 5 mls/hr Documented by: [id number] Cosigned by: [id number] Sodium Chloride (Nss 1000ml) 1,000 mls @ 80 mls/hr IV .[id number] [facility] Stop: 04/16/22 11:44 Last Infusion: 03/17/22 16:52 Dose: 0 mls/hr Documented by: [id number] Admin: 03/17/22 11:45 Dose: 80 mls/hr Documented by: [id number] Magnesium Sulfate/Dextrose (Magnesium Sulfate / D5w) 1 gm in 100 mls @ 100 mls/hr IV NOW ONE Stop: 03/17/22 16:29 Last Infusion: 03/17/22 16:52 Dose: 0 mls/hr Documented by: [id number] Admin: 03/17/22 15:46 Dose: 100 mls/hr Documented by: [id number] Metoprolol Tartrate (Metoprolol Tartrate 25 Mg Tab) 25 mg PO NOW STA Stop: 03/17/22 14:16 Last Admin: 03/17/22 15:04 Dose: 25 mg Documented by: [id number] Miscellaneous (Stat Iv Infusion Titration Per Protocol) 1 ea N/A NOW STA Stop: 03/17/22 11:40 Last Admin: 03/17/22 11:53 Dose: Not Given Documented by: [id number] Potassium Chloride (Potassium Chloride Crtab 20 Meq Tabcr) 20 meq PO NOW STA Stop: 03/17/22 14:16 Last Admin: 03/17/22 15:04 Dose: 20 meq Documented by: [id number] Medical Decision Making Laboratory Data Result diagrams: 03/17/22 11:05 03/17/22 11:05 Lab Results 03/17/22 03/17/22 03/17/22 Range/Units 11:05 11:05 11:05 WBC 5.20 (4.8-10.8) K/uL RBC 4.64 L (4.7-6.1) M/uL Hgb 14.6 (14.0-18.0) g/dL Hct 43.3 (42-52) % MCV 93.3 (80-100) fL MCH 31.5 (25-34) pg MCHC 33.7 (32-36) g/dL RDW Std Deviation 49.2 H (36.4-46.3) fL RDW Coeff of Bradly 14.4 (11.5-14.5) % Plt Count 125 L (130-400) K/uL MPV 9.4 (7.4-10.4) fL Immature Gran % (Auto) 0.2 % Neut % (Auto) 80.5 % Lymph % (Auto) 11.2 % [place] % (Auto) 7.7 % Eos % (Auto) 0.2 % Baso % (Auto) 0.2 % Neut # (Auto) 4.19 (1.4-6.5) K/uL Lymph # (Auto) 0.58 L (1.2-3.4) K/uL [place] # (Auto) 0.40 (0.11-0.59) K/uL Eos # (Auto) 0.01 (0-0.5) K/uL Baso # (Auto) 0.01 (0-0.2) K/uL Immature Gran # (Auto) 0.01 (0.00-0.02) K/uL PT 25.6 H (9.0-12.0) Seconds INR 2.5 H (0.9-1.1) APTT 42.1 H (21.0-31.0) Seconds PTT Ratio 1.5 Sodium 139 (136-145) mmol/L Potassium 3.8 (3.5-5.1) mmol/L Chloride 107 (98-107) mmol/L Carbon Dioxide 20 L (21-32) mmol/L Anion Gap 12 H (3-11) BUN 17 (6-23) mg/dl Creatinine 0.74 (0.6-1.4) mg/dl Est Cr Clr Drug Dosing 91.0 ml/min Est GFR ( Amer) 99.6 ml/min Est GFR (Non-Af Amer) 85.9 ml/min BUN/Creatinine Ratio 23.0 H (10-20) Glucose 192 H (70-99(Fasting)) mg/dl Calcium 8.9 (8.5-10.1) mg/dl Troponin I High Sens 26.3 H (0-20) pg/ml Lipase 17 (11-82) U/L SARS-CoV-2, RNA, NAAT (NEGATIVE) 03/17/22 Range/Units 11:45 WBC (4.8-10.8) K/uL RBC (4.7-6.1) M/uL Hgb (14.0-18.0) g/dL Hct (42-52) % MCV (80-100) fL MCH (25-34) pg MCHC (32-36) g/dL RDW Std Deviation (36.4-46.3) fL RDW Coeff of Bradly (11.5-14.5) % Plt Count (130-400) K/uL MPV (7.4-10.4) fL Immature Gran % (Auto) % Neut % (Auto) % Lymph % (Auto) % [place] % (Auto) % Eos % (Auto) % Baso % (Auto) % Neut # (Auto) (1.4-6.5) K/uL Lymph # (Auto) (1.2-3.4) K/uL [place] # (Auto) (0.11-0.59) K/uL Eos # (Auto) (0-0.5) K/uL Baso # (Auto) (0-0.2) K/uL Immature Gran # (Auto) (0.00-0.02) K/uL PT (9.0-12.0) Seconds INR (0.9-1.1) APTT (21.0-31.0) Seconds PTT Ratio Sodium (136-145) mmol/L Potassium (3.5-5.1) mmol/L Chloride (98-107) mmol/L Carbon Dioxide (21-32) mmol/L Anion Gap (3-11) BUN (6-23) mg/dl Creatinine (0.6-1.4) mg/dl Est Cr Clr Drug Dosing ml/min Est GFR ( Amer) ml/min Est GFR (Non-Af Amer) ml/min BUN/Creatinine Ratio (10-20) Glucose (70-99(Fasting)) mg/dl Calcium (8.5-10.1) mg/dl Troponin I High Sens (0-20) pg/ml Lipase (11-82) U/L SARS-CoV-2, RNA, NAAT NEGATIVE (NEGATIVE) Imaging Data Radiologist's Impression: Chest X-Ray 03/17/22 11:16 XR chest 1V portable HISTORY: 81 years-old Male Chest Pain acute atypical chest pain COMPARISON: Chest radiograph 10/16/2021, chest CT 05/26/2021. TECHNIQUE: Portable AP view of the chest FINDINGS: The cardiomediastinal and hilar silhouettes are within normal limits. Prior median sternotomy. Left subclavian pacer. No pneumothorax, large pleural effusion or overt pulmonary edema. Chronic interstitial coarsening. Numerous pulmonary nodules are redemonstrated, better seen on the comparison chest CT. The bones appear grossly intact. IMPRESSION: Chronic findings as above without acute process. ACT 112: Negative or not required by law. The above report was generated using voice recognition software. It may contain grammatical, syntax or spelling errors. Electronically signed by: Layo Hooks M.D. 03/17/2022 12:58 PM ECG Data Additional Comments: EKG #1 at 1103: Atrial fibrillation with a rate of 111: QRS 154 QTC 456. Right bundle branch block present. No ST elevation or ST depression. EKG #2 at 1146 status post Cardizem 25 mg IV push: Atrial fibrillation with a rate of 117. QRS [address] elevation or ST depression. Right bundle branch block present. MDM Narrative 1111: The patient was evaluated in room C7. A complete history and physical exam was performed Cardiac monitoring: An order was placed for continuous cardiac monitoring. The monitor shows a rate of 110 with atrial fibrilation rhythm Patient heart rate is controlled status post Cardizem by EMS. 1120: Shawna restaurant district manager was able to obtain EKG from [facility] and patient has a persistent right bundle branch block. 1150: I went to go reassess the patient and the patient was back into A. fib with RVR with a rate of 140-160. Patient was given Cardizem 25 mg IV push which improved his ventricular rate and the patient will be started on Cardizem drip. 1152: Abel from [employer] stated the patient has been having A. fib with a ventricular rate in the 170s over the last 2 days. He states that the device is functioning fine. 1325: On reassessment the patient is hypotensive. Patient reports no chest pain difficulty breathing. He reports his palpitations feel better. Patient's ventricular rate is within normal limits. Cardizem drip was shut off and patient was given IV fluid bolus. Labs within normal limits with elevation of elevated troponin. [facility]. [facility] & Plan Atrial fibrillation with RVR Critical Care Time Critical Care Time: Yes Total Critical Care Time: 82 I have personally spent greater than 82 minutes of critical care time in the direct management of this patient. This includes bedside care, interpretation of diagnostic studies, and testing, discussion with consultants, patient, and family members, and other required patient management activities. This 82 minutes is in excess of all separately billable procedures. Discharge Plan Visit Data Chief Complaint: Cardiac Assessment Stated Complaint: SOB, CARDIAC SX Discharge Problem: Atrial fibrillation with RVR Patient Disposition: Admitted As Inpatient Discharge Instructions Interventions: ED Discharge Assessment Last Done: 03/17/22 16:41
[2022-03-17] MEDS: predniSONE 5 MG TAB PO SCH (20:38)
[2022-03-17] MEDS: FAMOTIDINE 20 MG TAB PO SCH (20:38)
[2022-03-17] MEDS: METOPROLOL TARTRATE 25 MG TAB PO SCH (20:38)
[2022-03-17] MEDS: FLUTICASONE PROPIONATE NA SPR 16 GM BTL SCH (20:39)
[2022-03-17] MEDS: PANTOprazole 40 MG TAB PO SCH (20:40)
[2022-03-17] MEDS ORDERED: CHOLECALCIFEROL 1,000 UNITS 25 MCG TAB PO SCH (21:00)
[2022-03-17] MEDS: INSULIN GLARGINE SOLOSTAR 100 UNITS/ML 3 ML PEN SC SCH (21:24)
[2022-03-18 02:26] LABS: Eosinophils # (auto) 0.02 K/uL (0-0.5); Eosinophils % (auto) 0.5 %; Immature Granulocytes # (auto) 0.01 K/uL (0.00-0.02); Immature Granulocytes % (auto) 0.2 %; Lymphocytes # (auto) 0.86 K/uL (1.2-3.4); Lymphocytes % (auto) 19.9 %; Mean Corpuscular Hemoglobin 31.4 pg (25-34); Mean Corpuscular Hgb Conc 33.3 g/dL (32-36); Mean Corpuscular Volume 94.2 fL (80-100); Mean Platelet Volume 8.7 fL (7.4-10.4); Monocytes # (auto) 0.42 K/uL (0.11-0.59); Monocytes % (auto) 9.7 %; Neutrophils # (auto) 3.01 K/uL (1.4-6.5); Neutrophils % (auto) 69.7 %; Platelet Count 104 K/uL (130-400); RDW Coefficient of Variation 14.6 % (11.5-14.5); RDW Standard Deviation 50.5 fL (36.4-46.3); Red Blood Count 4.14 M/uL (4.7-6.1); White Blood Count 4.32 K/uL (4.8-10.8)
[2022-03-18 02:40] LABS: INR 2.5 (0.9-1.1); Prothrombin Time 25.6 Seconds (9.0-12.0)
[2022-03-18 02:46] LABS: RBC Morphology Unremarkable
[2022-03-18 02:52] LABS: Albumin Globulin Ratio 1.5 (0.9-2); Albumin Level 3.3 gm/dl (3.4-5.0); BUN Creatinine Ratio 19.3 (10-20); Bilirubin,Total 0.7 mg/dl (0.2-1.0); Calcium 8.3 mg/dl (8.5-10.1); Creatinine Clr Calc Pharmacy 80.4 ml/min; Est GFR (Non-African American) 81.9 ml/min; Globulin 2.2 gm/dl (2.5-4.0); Magnesium 2.1 mg/dl (1.7-2.4); Potassium 4.1 mmol/L (3.5-5.1); Total Protein 5.5 gm/dl (6.0-8.3)
[2022-03-18] MEDS: METOPROLOL TARTRATE 25 MG TAB PO SCH ×3 (05:43→14:50)
[2022-03-18 07:02] LABS: Estimated Average Glucose 171 mg/dl; Hemoglobin A1C 7.6 % (4.5-5.6)
--- NOTE | 2022-03-18 08:05 | Cardiology Consultation ---
Date of Consultation March 18, 2022 Assessment & Plan (1) Atrial fibrillation with RVR: (2) Chronic HFrEF (heart failure with reduced ejection fraction): (3) Aortic stenosis: (4) Ischemic cardiomyopathy: (5) Cardiac pacemaker in situ: Titrate amiodarone to 200 mg twice daily. He will continue twice daily dosing for 2 weeks then resume 200 mg once daily. Monitor atrial fibrillation burden via pacemaker interrogations. 2% atrial fibrillation burden noted per most recent interrogation in December with the longest episode lasting 28 hours. Patient may reduce metoprolol back to succinate formulation at 50 mg daily. Continue oral anticoagulation with warfarin. Appears compensated from a heart failure perspective. Continue evidence-based therapy including beta-heath, ARB, and empagliflozin. History of Present Illness Reason for Consultation: Atrial fibrillation with rapid ventricular response Requesting Physician: Ethel Chao PA-C Attending Physician: Reba Zayas MD History of Present Illness 81-year-old patient presented to the emergency department feeling unwell for 2-3 days. Complains of being tired, fatigued, and weak. ECG in the ER demonstrating rapid atrial fibrillation. He is chronically treated with amiodarone in the outpatient setting. Intravenous diltiazem initiated in the ER, however discontinued due to hypotension. INR therapeutic on admission, however subtherapeutic INR as noted in February, and January. Spontaneously converted to sinus rhythm at 4:20 PM 03/17/2022. Repeat ECG this a.m. demonstrates atrial paced rhythm with a right bundle branch block. Feeling better this morning. Denies palpitations, lightheadedness, or dizziness. No chest discomfort or unusual shortness of breath. Denies orthopnea, PND, or edema. Offers no other concerns/complaints. Complex cardiovascular history: 1.ASCVD Status post PCI with a BMS to the mid LAD on 05/16/2016. May 26, 2016 diagnostic cardiac catheterization at [facility], Dr. 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 Also, far beyond the stent, there was visible healed dissection flap, Type B, non-obstructive. 2. Status post CABG x 1 with a ABRAMS to LAD for persistent angina, May 2016. 3. Ischemic cardiomyopathy, EF 35%. 4. 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 Pacemaker interrogation on September 27, 2021 demonstrated appropriate function. Remaining longevity: 8.7 years. No AT/AF. Atrial paced 99.1%. Ventricular paced less than 0.1%. Pacemaker interrogation due next on 01/04/2022 5. Symptomatic paroxysmal atrial fibrillation with a rapid ventricular response. Well controlled on low-dose amiodarone. Amiodarone notably initiated on January 09, 2021. LFTs and TFTs due next in April 2022 6. Aortic valve stenosis. Moderate. Repeat resting echocardiography planned for October 2022 unless symptoms dictate in need for sooner evaluation 7. Hypertension. 8. Hyperlipidemia. Poor statin tolerance and ezetimibe. 9. Peripheral vascular disease. 10. Metastatic prostate cancer, lung metastasis. Followed by [facility]. 11. Type II diabetes mellitus. Followed by PCP. 12. Iron deficiency anemia. H&H 15.9 and 48.4 on October 19, 2021. 13. COVID in Sep 2020 requiring hospitalization. Allergies Allergy/AdvReac Type Severity Reaction Status Date / Time No Known Allergies Allergy Verified 10/16/21 11:58 Home Medications Medication Instructions Recorded Confirmed Type glucosamine sulf dipot 1 cap PO BID 02/21/19 03/17/22 History chlr,msm,chond 550 mg-C 30 mg-erum 1 mg capsule (Glucosamine Chondroitin) nitroglycerin 0.4 mg sublingual 0.4 mg SUBLINGUAL DIRECTED PRN 02/21/19 03/17/22 History tablet (Nitrostat) omeprazole 20 mg capsule,delayed 20 mg PO BID 02/21/19 03/17/22 History release potassium chloride 10 mEq 10 meq PO DAILY 02/21/19 03/17/22 History tablet,extended release(part/cryst) (Klor-Con M) cholecalciferol (vitamin D3) 25 1,000 mcg PO HS 01/08/21 03/17/22 History mcg (1,000 unit) tablet warfarin 5 mg tablet 7.5 mg PO MOWEFR@1600 01/09/21 03/17/22 History empagliflozin 10 mg tablet 10 mg PO QAM 06/13/21 03/17/22 History (Jardiance) losartan 25 mg tablet 12.5 mg PO QAM 06/13/21 03/17/22 History metoprolol succinate 50 mg 50 mg PO HS 06/13/21 03/17/22 History tablet,extended release 24 hr amiodarone 200 mg tablet 200 mg PO QAM 10/16/21 03/17/22 History aspirin 81 mg tablet,delayed 81 mg PO DAILY 10/16/21 03/17/22 History release loratadine 10 mg tablet 10 mg PO DAILY 10/16/21 03/17/22 History vit C 250 mg-vit E 90 mg-zinc 40 2 tab PO DAILY 10/16/21 03/17/22 History mg-copper 1 [id number] capsule (PreserVision AREDS-2) abiraterone 250 mg tablet 1,000 mg PO DAILY 03/17/22 03/17/22 History famotidine 20 mg tablet (Pepcid) 20 mg PO BID 03/17/22 03/17/22 History fluticasone propionate 50 2 spray INTRANASAL BID 03/17/22 03/17/22 History mcg/actuation nasal spray,suspension prednisone 5 mg tablet 5 mg PO BID 03/17/22 03/17/22 History warfarin 5 mg tablet 10 mg PO SUTUTHSA@1600 03/17/22 03/17/22 History Patient History Medical History Aortic stenosis Asthma CAD (coronary artery disease) Status post PCI with a BMS to the mid LAD on 05/16/2016. 2.May 26, 2016 diagnostic cardiac catheterization at [facility], Dr. 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 Also, far beyond the stent, there was visible healed dissection flap, Type B, non- obstructive. 3.Status post CABG x 1 with a ABRAMS to LAD for persistent angina, May 2016. 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 AL on CPAP Paroxysmal atrial fibrillation Pneumonia due to COVID-19 virus Prostate cancer metastatic to lung Tachy-santi syndrome Surgical History H/O esophagogastroduodenoscopy Hx of total knee arthroplasty S/P CABG x 1 S/P cholecystectomy S/P hip replacement S/P knee replacement Family History Other Diabetes Heart disease Social History Smoking Status: Former smoker Tobacco Type: Cigarettes Cigarettes Per Day: 40; Second Hand Exposure: No; Hx Alcohol Use: No Hx Substance Use: No Preferred Language: Stateless Communication Ability: Effective Visual Impairment: No Limitations Hearing Ability: Normal Reconciling Clerk Required: No Beliefs That Will Affect Care: None marital status: Current Living Situation: Spouse Current Living Situation Comment: Home with Other Information That Helps Us Care for You: No Feels Safe at Home: Yes Safety Concerns: Feels Safe At This Time Assistive Devices: Cane Assistive Devices Comment: "Occasional" use of cane Review of Systems Review of Systems: All systems reviewed & are unremarkable except as noted in Subjective Physical Exam Constitutional: well developed, well nourished and + obese Respiratory: normal respiratory effort; no respiratory distress, no labored breathing and no retractions Auscultation: no crackles, no rales, no rhonchi and no wheezes Cardiovascular: Rate/Rhythm: regular rate and regular rhythm Heart Sounds: normal S1, normal S2 and + murmur (2/6Systolic ejection murmur heard best at the right 2nd intercostal space) Vessels: radial pulses present; no JVD and no carotid bruit Extremities: no edema Gastrointestinal (Abdomen): Inspection/Auscultation: abdomen normal to inspection and normal bowel sounds; abdomen not distended Neurologic: CN's II-XI intact bilaterally and moves all extremities; no focal motor deficits Motor/Sensory: no tremor Results & Data ([facility]) Vital Signs (Past 12 Hours) Vital Signs Temp Pulse Pulse Pulse Resp BP Pulse Ox 03/18/22 05:42 68 123/78 03/18/22 04:01 36.8 C 70 16 128/75 95 03/18/22 00:07 36.6 C 60 16 102/56 L 95 03/17/22 22:22 77
[2022-03-18] MEDS: INSULIN ASPART PER UNIT SC SCH ×2 (08:46→12:18)
[2022-03-18] MEDS: FAMOTIDINE 20 MG TAB PO SCH (08:47)
[2022-03-18] MEDS: PANTOprazole 40 MG TAB PO SCH (08:47)
[2022-03-18] MEDS: INSULIN GLARGINE SOLOSTAR 100 UNITS/ML 3 ML PEN SC SCH (08:47)
[2022-03-18] MEDS: predniSONE 5 MG TAB PO SCH (08:47)
[2022-03-18] MEDS: FLUTICASONE PROPIONATE NA SPR 16 GM BTL SCH (08:48)
[2022-03-18] MEDS ORDERED: POTASSIUM CHLORIDE 10 MEQ TABCR PO SCH (09:00)
[2022-03-18] MEDS ORDERED: CEROVITE ADV FORMULA TAB PO SCH (09:00)
[2022-03-18] MEDS ORDERED: AMIODARONE 200 MG TAB PO SCH ×2 (09:00→17:00)
[2022-03-18] MEDS ORDERED: LORATADINE 10 MG TAB PO SCH (09:00)
[2022-03-18] MEDS ORDERED: ASPIRIN 81 MG ECTAB PO SCH (09:00)
[2022-03-18] MEDS ORDERED: AMIODARONE 200 MG TAB PO ONE (09:45)
[2022-03-18 14:45] VITALS: BP 122/73; PULSE 68
[2022-03-18 15:02] VITALS: TEMP 97.5; O2SAT 97
--- NOTE | 2022-03-18 15:09 | Hospitalist Progress Note ---
Date of Service March 18, 2022 Assessment & Plan Admission and Anticipated Discharge Date Admission Date: March 17, 2022 Subjective By CMS guidelines, a determination that the admission or continued stay is not medically necessary has been made by a member of the UR committee and a physician for this hospital stay, therefore a Code 44 will be completed and the Inpatient admission will be changed to outpatient. Results & Data Results & Data ([facility]) Vital Signs (Past 12 Hours) Vital Signs Temp Pulse Pulse Resp BP Pulse Ox 03/18/22 14:44 36.4 C L 68 18 122/73 97 03/18/22 11:37 36.5 C 63 18 98/63 L 96 03/18/22 08:34 36.4 C L 60 21 123/73 94 03/18/22 05:42 68 123/78 03/18/22 04:01 36.8 C 70 16 128/75 95
--- NOTE | 2022-03-18 15:18 | Communication Note ---
Date of Service: March 18, 2022 By CMS guidelines, a determination that the admission or continued stay is not medically necessary has been made by a member of the Utilization Review commi ttee and a physician for this hospital stay. Therefore, a Code 44 will be completed and the inpatient admission will be changed to outpatient. Laurita Ordonez DO
[2022-03-18] MEDS ORDERED: WARFARIN SOD 10 MG TAB PO SCH (16:00)
--- NOTE | 2022-03-18 17:25 | Discharge Summary ---
Date of Service March 18, 2022 Admission HPI Per Admitting Provider This is a 81-year-old male who has significant past medical history of CAD with history of BMS to mid LAD 05/2016 with eventual CABG ABRAMS to LAD in 2015, chronic HFrEF, PAF anticoagulated on warfarin, TBS status post pacemaker placement, HTN, HLD, AL on CPAP, moderate aortic stenosis, metastatic prostate cancer currently receiving treatment, history of PE/DVT and history of COVID who presents to ED secondary to not feeling well for 2 to 3 days. He complains of not feeling well past 2-3 days. He complains of tired, fatigue and weakness. This morning he woke up and was on his way to a car show when he developed increasing shortness of breath and feeling more ill and decided to turn around and come home. He has chronic SOB but feels worse than baseline He also had 2-3 episodes of diarrhea this morning. He describes it as loose, but not bloody or dark tarry. He has diarrhea off and on chronically. He denies any recent illness, f/c/s, chest pain, cough, uri sx, hemoptysis, n/v/abd pain, or change in urination. He has hx of prostate cancer for which he follows Dr. Contreras and is still receiving treatment. Pt and opted to summon EMS. He was found to be in A. fib with RVR with heart rates into the 170s. In route he received a diltiazem bolus of 20 mg. He continued to have elevated heart rates and received additional diltiazem bolus in ED and started on drip. Patient subsequently became hypotensive and heart rate improved to 120s. Diltiazem drip was turned off and he was placed on gentle IV fluids. His pressure normalized. His troponin was mildly elevated 26.3. Pacemaker was interrogated which revealed A. fib with RVR. CBC and CMP were generally unremarkable. INR was 2.5. Chest x-ray without acute cardiopulmonary findings. Principal Diagnosis Atrial fibrillation with RVR Discharge Exam Patient feels well, back to baseline Regular rate and rhythm Breathing comfortably on room air No lower extremity edema Discharge Data Allergies Allergy/AdvReac Type Severity Reaction Status Date / Time No Known Allergies Allergy Verified 10/16/21 11:58 Consultations 03/17/22 13:27 Consult Cardiology Routine 03/17/22 14:27 ED Decision to Admit Stat Hospital Course (1) Atrial fibrillation with RVR: (2) Chronic HFrEF (heart failure with reduced ejection fraction): (3) CAD (coronary artery disease): (4) Cardiac pacemaker in situ: (5) Aortic stenosis: (6) Prostate cancer metastatic to lung: (7) AL on CPAP: (8) DM2 (diabetes mellitus, type 2): Mr Hayes Lopez is a 81 year old man with history of chronic systolic CHF, paroxysmal A fib, PPM, CAD s/p CABG, NIDDM, metastatic prostate cancer presented to ER 03/17 with weakness and was found to be in atrial fibrillation with RVR. Initially, he was placed on a cardizem drip but this was stopped due to hypotension. His metoprolol was increased and later his amiodarone was also increased. He spontaneously converted back to sinus rhythm overnight and by the next morning felt back to his baseline. He was seen by Cardiology and recommended to remain on amiodarone 200mg BID (for 2 weeks) then he can resume his prior amiodarone 200mg daily. His remaining medications were unchanged. Patient's was at bedside and discharge instructions were reviewed with both. All questions were answered and they felt comfortable with discharge plan. Total Time Total Time Spent Total Time Spent (In Minutes): 35 Discharge Plan Discharge Items Patient Disposition: Home - Self-Care Reason For Visit: AFIB RVR Discharge Diagnosis: Atrial fibrillation with RVR Condition on Discharge: Good Activity: Resume your previous activity Weightbearing: Full weightbearing Non-emergency contact: Primary Care Provider Call non-emergency contact if: you have any medication questions and your symptoms worsen Follow-up/Referrals: Jones Estrada MD [Primary Care Provider] - Fredy Loza [Physician [facility] Aides Teacher] - Diet: Carb Consistent or DM2 and Heart Healthy Addtl Attending Provider Instructions: You will be discharged on amiodarone 200 mg twice daily for 2 weeks, then you can go back on Amiodarone 200mg daily Your remaining medications were unchanged Pending Studies at Discharge: No Stand-Alone Forms: My Ty[employer], Smoking Cessation Medications and DC Order Prescriptions: New amiodarone 200 mg Tablet 200 mg PO BIDM 14 Days Qty: 28 RF: 0 Continued omeprazole 20 mg capsule,delayed release(DR/EC) 20 mg PO BID RF: 0 potassium chloride [Klor-Con M10] 10 mEq tablet,ER particles/crystals 10 meq PO DAILY RF: 0 Glucosamine Chondroitin 550-30-1 mg Capsule 1 cap PO BID RF: 0 nitroglycerin [Nitrostat] 0.4 mg Tablet, Sublingual 0.4 mg sublingual DIRECTED PRN (Reason: Chest Pain) RF: 0 cholecalciferol (vitamin D3) 25 mcg (1,000 unit) Tablet 1,000 mcg PO HS RF: 0 warfarin 5 mg Tablet 7.5 mg PO MOWEFR@1600 RF: 0 metoprolol succinate 50 mg tablet extended release 24 hr 50 mg PO HS RF: 0 losartan 25 mg tablet 12.5 mg PO QAM RF: 0 Jardiance 10 mg tablet 10 mg PO QAM RF: 0 aspirin 81 mg Tablet,Delayed Release (Dr/Ec) 81 mg PO DAILY RF: 0 loratadine 10 mg Tablet 10 mg PO DAILY RF: 0 PreserVision AREDS-2 250-90-40-1 mg Capsule 2 tab PO DAILY RF: 0 prednisone 5 mg tablet 5 mg PO BID RF: 0 fluticasone propionate 50 mcg/actuation spray,suspension 2 spray INTRANASAL BID RF: 0 abiraterone 250 mg tablet 1,000 mg PO DAILY RF: 0 famotidine [Pepcid] 20 mg tablet 20 mg PO BID RF: 0 warfarin 5 mg Tablet 10 mg PO SUTUTHSA@1600 RF: 0 Discontinued amiodarone 200 mg tablet 200 mg PO QAM RF: 0 Discharge Orders: Discharge Order (Routine); Ordered 03/18/22 Ordered By: Reba Zayas Admission Data Admit Date/Time: 03/17/22 13:27 Attending Provider: Reba Zayas Admit Provider: Violetta Membreno I. Primary Care Provider: Jones Estrada Other Providers: Hayes Blanco Valentine I. Other Interventions: Discharge Summary Assessment (RN) Last Done: 03/18/22 15:34
[2022-03-18] MEDS ORDERED: METOPROLOL SUCC 50MG EXT REL TAB PO SCH (21:00)
--- NOTE | 2022-03-19 07:59 | Electrocardiogram Report ---
Test Reason : Blood Pressure : / mmHG Vent. Rate : 111 BPM Atrial Rate : 097 BPM P-R Int : 000 ms QRS Dur : 154 ms QT Int : 336 ms P-R-T Axes : 000 266 066 degrees QTc Int : 456 ms Atrial flutter with rapid ventricular response Right bundle branch block Anteroseptal infarct (cited on or before 28-MAY-2016) Abnormal ECG When compared with ECG of 17-OCT-2021 07:27, Atrial flutter has replaced Electronic atrial pacemaker Vent. rate has increased BY 47 BPM Confirmed by Vicente Guevara ([id number]) on 03/19/2022 7:59:03 AM Referred By: REFERRED SELF Confirmed By:Vicente Guevara
--- NOTE | 2022-03-19 08:37 | Electrocardiogram Report ---
Test Reason : Blood Pressure : / mmHG Vent. Rate : 065 BPM Atrial Rate : 065 BPM P-R Int : 278 ms QRS Dur : 170 ms QT Int : 474 ms P-R-T Axes : 091 -76 098 degrees QTc Int : 492 ms Atrial-paced rhythm with prolonged AV conduction with occasional Premature ventricular complexes Left anterior fascicular block Right bundle branch block Septal infarct , age undetermined Abnormal ECG When compared with ECG of 17-MAR-2022 11:46, (unconfirmed) Electronic atrial pacemaker has replaced Atrial fibrillation Vent. rate has decreased BY 52 BPM Confirmed by Vicente Guevara ([id number]) on 03/19/2022 8:36:57 AM Referred By: REFERRED SELF Confirmed By:Vicente Guevara
--- NOTE | 2022-03-21 18:56 | Electrocardiogram Report ---
Test Reason : Blood Pressure : / mmHG Vent. Rate : 117 BPM Atrial Rate : 092 BPM P-R Int : 000 ms QRS Dur : 154 ms QT Int : 332 ms P-R-T Axes : 000 266 067 degrees QTc Int : 463 ms Atrial fibrillation with rapid ventricular response Right bundle branch block Anteroseptal infarct (cited on or before 28-MAY-2016) Abnormal ECG When compared with ECG of 17-MAR-2022 11:03, Atrial fibrillation has replaced Atrial flutter Confirmed by Riley Ramon ([id number]) on 03/21/2022 6:56:02 PM Referred By: REFERRED SELF Confirmed By:Riley Ramon
== END 2022-03-18 16:06 | disposition home or self-care (01) ==
LOC: ED 10:50 → 2S 13:27 → INTOOBSV 13:27 → SUATTDRO 13:27 → 2S 16:41

== ENCOUNTER 2022-10-15 13:22 | Inpatient (IN) ==
--- NOTE | 2022-10-15 13:50 | XRay Report ---
XR chest 1V portable HISTORY: Atypical chest pain. COMPARISON: Chest 03/28/2022. FINDINGS: No pneumothorax. No pleural effusions. The heart remains mildly enlarged. There are postste rnotomy changes and left-sided dual-chamber pacemaker. Emphysema is again noted. Right basilar linear densities persist and favor subsegmental atelectasis or scarring. No new focal lung consolidations t o suggest a pneumonia. No evidence for pulmonary edema. Scattered pulmonary nodules consistent with t he patient's known history of metastatic disease. IMPRESSION: 1. No significant change compared to the prior study. No acute process within the chest. 2. Scattered pulmonary nodules again noted consistent with the patient's history of metastatic diseas e. 3. Mild emphysema. ACT 112: Negative or not required by law. Electronically signed by: Lamin Lal M.D. 10/15/2022 1:48 PM
[2022-10-15 13:57] LABS: Basophils # (auto) 0.01 K/uL (0-0.2); Basophils % (auto) 0.2 %; Eosinophils # (auto) 0.02 K/uL (0-0.50); Eosinophils % (auto) 0.4 %; Hematocrit (blood only) 36.6 % (40.1-51.0); Hemoglobin 12.7 g/dl (14.0-18.0); Immature Granulocytes # (auto) 0.02 K/uL (0.00-0.02); Immature Granulocytes % (auto) 0.4 %; Lymphocytes # (auto) 0.62 K/uL (1.2-3.4); Lymphocytes % (auto) 12.4 %; Mean Corpuscular Hemoglobin 31.1 pg (25.0-34.0); Mean Corpuscular Hgb Conc 34.7 g/dL (32.0-36.0); Mean Corpuscular Volume 89.7 fL (80.0-100.0); Mean Platelet Volume 8.8 fL (9.4-12.4); Monocytes # (auto) 0.61 K/uL (0.24-0.82); Monocytes % (auto) 12.2 %; Neutrophils # (auto) 3.71 K/uL (1.4-6.5); Neutrophils % (auto) 74.4 %; Platelet Count 136 K/uL (130-400); RDW Coefficient of Variation 14.6 % (11.5-14.5); RDW Standard Deviation 47.1 fL (36.4-46.3); Red Blood Count 4.08 M/uL (4.63-6.08); White Blood Count 4.99 K/ul (4.8-10.8)
[2022-10-15 14:07] LABS: Prothrombin Time 20.8 Seconds (9.0-12.0)
[2022-10-15 14:34] LABS: Troponin I High Sensitivity 40.5 pg/ml (0-20)
[2022-10-15 14:35] LABS: Alanine Aminotransferase 17 U/L (7-52); Albumin Globulin Ratio 1.2 (0.9-2); Albumin Level 3.3 gm/dl (3.4-5.0); Alkaline Phosphatase 176 U/L (34-104); Anion Gap 10 (3-11); Aspartate Aminotransferase 15 U/L (13-39); BUN Creatinine Ratio 22.5 (10-20); Bilirubin,Total 1.2 mg/dl (0.2-1.0); Blood Urea Nitrogen 16 mg/dl (6-23); Calcium 8.5 mg/dl (8.5-10.1); Carbon Dioxide 25 mmol/L (21-32); Chloride 105 mmol/L (98-107); Est GFR (African American) 101.3 ml/min; Est GFR (Non-African American) 87.4 ml/min; Globulin 2.8 gm/dl (2.5-4.0); Glucose 163 mg/dl (70-99(Fasting)); Lipase 8 U/L (11-82); Potassium 3.4 mmol/L (3.5-5.1); Sodium 140 mmol/L (136-145); Total Protein 6.1 gm/dl (6.0-8.3)
[2022-10-15 14:44] LABS: Appearance Urine Clear (Clear); Bilirubin Urine Negative (Negative); Blood Urine Negative (Negative); Color Urine Yellow; Glucose Urine UA Negative (Negative); Ketones Urine Negative (Negative); Leukocyte Esterase Urine Negative (Negative); Nitrite Urine Negative (Negative); Protein Urine Negative (Negative); Specific Gravity Urine 1.008 (1.000-1.030); Urobilinogen Urine Negative (Negative)
--- NOTE | 2022-10-15 14:49 | Emergency Department Note ---
Impression & Plan Chest pain, SOB (shortness of breath), Elevated troponin ED Provider Note INFORMANT: Patient ED PROVIDER(S): Mk Davis MD CHIEF COMPLAINT: Chest pain PLAN: Disposition: Admitted Condition: Good Outpatient prescription management: none Referral: None MEDICAL DECISION MAKING: Patient presented to the emergency department because of intermittent chest pain. Work-up was initiated. Twelve-lead ECG revealed a paced rhythm. His chest x-ray did not show any acute disease. The patient had blood work obtained. His CBC showed a mild anemia and urinalysis was unremarkable. INR was therapeutic at 2.0 making thromboembolic disease unlikely. Potassium was minimally low at 3.4. The patient's troponin is mildly elevated. In light of his intermittent chest pain and cardiac history this is concerning. Further management in the hospital will be necessary to elucidate the cause of this elevated troponin as well as his chest pain. I discussed this with him and bud saini and they were in agreement. [facility] Presentation, history and diagnostics were reviewed with Dr. Johnson. Patient was evaluated in the ER admitted for further management. Triage Nursing notes reviewed and agree them. Vital Signs: reviewed and remarkable for no significant abnormalities Prior /Outside records reviewed: none Differential diagnosis: Cardiac ischemia, aortic dissection, pulmonary embolism, pneumothorax, pneumonia, pericarditis, myocarditis, esophageal rupture, GERD, cholecystitis, pancreatitis, musculoskeletal, as well as other pathologies. Diagnostics, as interpreted by me: ECG: Twelve-lead ECG reveals an atrial paced rhythm with prolonged AV conduction and septal Q waves. LVH is present. Right bundle branch block is present. Rate 70 bpm. Cardiac Monitoring: Cardiac monitoring ordered by me: The patient was placed on continuous cardiac monitoring and observed. It revealed a paced rhythm at 60 bpm. Medical decision rules: none Imaging studies: Chest x-ray. Findings: A chest x-ray was performed and revealed no pneumothorax, effusion, infiltrate, pulmonary edema, free air under the diaphragm, or wide mediastinum. Pacemaker present. Impression: No acute disease. Chronic changes present. I refer you to the EMR for further details. HPI: The patient is a 81 year old male who presents to the Emergency Room with complaints of chest pain. This started about 5 days ago and is worsening. The patient also notes the following associated symptoms, shortness of breath. The patient has found no relieving factors. Current pain is rated as 0/10. Patient's episodes are intermittent. Patient is on Coumadin anticoagulation. History of CHF and CAD. Pt denies LOC, headache, fevers, chills, diaphoresis, visual changes, neck pain, nausea, vomiting, abdominal pain, back pain, melena, hematochezia, urinary symptoms, numbness, weakness, lymphadenopathy, rash, or other complaints. PAST MEDICAL HISTORY: See Below, CHF, CAD, hypertension PAST SURGICAL HISTORY: See Below, pacemaker SOCIAL HISTORY: See Below, former smoker HOME MEDICATIONS: See Below ALLERGIES: See Below VITALS: See Below PHYSICAL EXAMINATION: GENERAL: Awake, tired-appearing, in no distress HENT: Normocephalic, atraumatic. Oropharynx unremarkable. EYES: Normal conjunctiva. Sclera non-icteric. NECK: Inspection normal. Non-tender. Supple. No nuchal rigidity. FROM. No masses. RESPIRATORY: Clear to auscultation. No wheezes. No rales. Normal respiratory effort. CARDIAC: Normal rate. Normal rhythm. No murmurs. No rubs. Extremities warm and well perfused. Pulses equal. No JVD. GI: Soft, non-distended. No tenderness to palpation. No rebound or guarding. No masses. RECTAL: Deferred. MUSCULOSKELETAL: Atraumatic. Chest examination reveals no tenderness. The back is symmetrical on inspection without obvious abnormality. There is no CVA tenderness to palpation. No joint edema. LOWER EXTREMITIES: Calves are equal size bilaterally and non-tender. 1+ edema. Bilateral foot braces present. No discoloration. NEURO: Normal sensorium. No sensory or motor deficits noted. SKIN: No rash or jaundice noted. Past Med/Surg History Medical History Aortic stenosis Asthma CAD (coronary artery disease) Status post PCI with a BMS to the mid LAD on 05/16/2016. 2.May 26, 2016 diagnostic cardiac catheterization at [facility], Dr. 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 Also, far beyond the stent, there was visible healed dissection flap, Type B, non- obstructive. 3.Status post CABG x 1 with a ABRAMS to LAD for persistent angina, May 2016. 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 Surgical History H/O esophagogastroduodenoscopy Hx of total knee arthroplasty S/P CABG x 1 S/P cholecystectomy S/P hip replacement S/P knee replacement Family History Other Diabetes Heart disease Social History Smoking Status: Former smoker Tobacco Type: Cigarettes Cigarettes Per Day: 40; Second Hand Exposure: No; Hx Alcohol Use: No Hx Substance Use: No Preferred Language: Greenlandic Communication Ability: Effective Visual Impairment: No Limitations Hearing Ability: Normal Emergency Department Manager Required: No Beliefs That Will Affect Care: None marital status: Current Living Situation: Spouse Current Living Situation Comment: Home with Feels Safe at Home: Yes Assistive Devices: Cane Allergies Allergies Allergy/AdvReac Type Severity Reaction Status Date / Time No Known Allergies Allergy Verified 10/15/22 16:38 Home Meds Home Medications Medication Instructions Recorded Confirmed glucosamine sulf dipot 1 cap PO BID 02/21/19 10/15/22 chlr,msm,chond 550 mg-C 30 mg-erum 1 mg capsule (Glucosamine Chondroitin) nitroglycerin 0.4 mg sublingual 0.4 mg sublingual DIRECTED PRN 02/21/19 10/15/22 tablet (Nitrostat) Chest Pain omeprazole 20 mg capsule,delayed 20 mg PO BID 02/21/19 10/15/22 release potassium chloride 10 mEq 10 meq PO DAILY 02/21/19 10/15/22 tablet,extended release(part/cryst) (Klor-Con M) cholecalciferol (vitamin D3) 25 1,000 mcg PO DAILY 01/08/21 10/15/22 mcg (1,000 unit) tablet metoprolol succinate 50 mg 50 mg PO AMPM 06/13/21 10/15/22 tablet,extended release 24 hr vit C 250 mg-vit E 90 mg-zinc 40 2 tab PO DAILY 10/16/21 10/15/22 mg-copper 1 [id number] capsule (PreserVision AREDS-2) abiraterone 250 mg tablet 1,000 mg PO DAILYBB 03/17/22 10/15/22 famotidine 20 mg tablet (Pepcid) 20 mg PO BID 03/17/22 10/15/22 fluticasone propionate 50 2 spray intranasal BID 03/17/22 10/15/22 mcg/actuation nasal spray,suspension prednisone 5 mg tablet 5 mg PO BID 03/17/22 10/15/22 acetaminophen 325 mg tablet 650 - 975 mg PO DAILY PRN 03/28/22 10/15/22 (Tylenol) PAIN/FEVER ascorbic acid (vitamin C) 500 mg 1,000 mg PO DAILY 03/28/22 10/15/22 tablet (Vitamin C) hydrocortisone 2.5 % topical cream 1 applic topical DAILY PRN 03/28/22 10/15/22 UNDERARMS FOR FLARE UPS albuterol sulfate 90 mcg/actuation 1 inh inhalation Q6H PRN Shortness 07/04/22 10/15/22 aerosol inhaler (Ventolin HFA) Of Breath Or Wheezing amiodarone 200 mg tablet 200 mg PO DAILY 07/04/22 10/15/22 loratadine 10 mg tablet (Claritin) 10 mg PO DAILY 07/04/22 10/15/22 aspirin 81 mg chewable tablet 81 mg PO DAILY 10/15/22 10/15/22 furosemide 20 mg tablet (Lasix) 20 mg PO QAM 10/15/22 10/15/22 glipizide 5 mg tablet 2.5 mg PO DAILY 10/15/22 10/15/22 psyllium husk 0.52 gram capsule 0.52 g PO BID 10/15/22 10/15/22 tacrolimus 0.1 % topical ointment 1 applic topical BID PRN FLARES OF 10/15/22 10/15/22 PSORIASIS tamsulosin 0.4 mg capsule (Flomax) 0.4 mg PO DAILY 10/15/22 10/15/22 warfarin 5 mg tablet See Rx Instructions .Route .COMPLEX 10/15/22 10/15/22 Results & Data (ED) Vital Signs Vital Signs - 24 hr 10/15/22 13:10 10/15/22 13:10 10/15/22 13:10 Temperature 36.7 C Temperature Source Oral Pulse Rate 62 Pulse Rate from SpO2 Sensor Pulse Rhythm Regular Pulse Strength Normal Respiratory Rate 24 Respiratory Effort / Characteristics Non-Labored Non-Labored Respiratory Depth Normal Normal Respiratory Pattern Regular Blood Pressure 134/86 Blood Pressure Mean 102 Blood Pressure Position Lying Pulse Oximetry 95 95 Oxygen Delivery Method Room Air Room Air Sepsis Recent Fever Within 48 Hours No Sepsis New/Unexplained Change in Mental Status N/A Sepsis Action Taken by Nursing No Action Required 10/15/22 13:10 10/15/22 13:37 10/15/22 13:30 Temperature Temperature Source Pulse Rate 60 66 Pulse Rate from SpO2 Sensor 67 Pulse Rhythm Regular Pulse Strength Respiratory Rate 24 20 15 Respiratory Effort / Characteristics Non-Labored Respiratory Depth Normal Respiratory Pattern Regular Blood Pressure Blood Pressure Mean Blood Pressure Position Pulse Oximetry 95 94 94 Oxygen Delivery Method Room Air Room Air Sepsis Recent Fever Within 48 Hours Sepsis New/Unexplained Change in Mental Status Sepsis Action Taken by Nursing 10/15/22 14:00 10/15/22 14:30 10/15/22 15:00 Temperature Temperature Source Pulse Rate 60 60 60 Pulse Rate from SpO2 Sensor 60 60 60 Pulse Rhythm Pulse Strength Respiratory Rate 22 16 15 Respiratory Effort / Characteristics Respiratory Depth Respiratory Pattern Blood Pressure 134/86 134/86 Blood Pressure Mean 102 102 Blood Pressure Position Pulse Oximetry 92 93 94 Oxygen Delivery Method Sepsis Recent Fever Within 48 Hours Sepsis New/Unexplained Change in Mental Status Sepsis Action Taken by Nursing 10/15/22 15:30 10/15/22 16:00 10/15/22 16:30 Temperature Temperature Source Pulse Rate 60 60 60 Pulse Rate from SpO2 Sensor 60 60 60 Pulse Rhythm Pulse Strength Respiratory Rate 16 16 19 Respiratory Effort / Characteristics Respiratory Depth Respiratory Pattern Blood Pressure 134/86 Blood Pressure Mean 102 Blood Pressure Position Pulse Oximetry 93 90 94 Oxygen Delivery Method Sepsis Recent Fever Within 48 Hours Sepsis New/Unexplained Change in Mental Status Sepsis Action Taken by Nursing Laboratory Data Result diagrams: 10/15/22 Unknown 10/15/22 Unknown Lab Results 10/15/22 10/15/22 10/15/22 Range/Units 14:35 Unknown Unknown WBC 4.99 (4.8-10.8) K/ul RBC 4.08 L (4.63-6.08) M/uL Hgb 12.7 L (14.0-18.0) g/dl Hct 36.6 L (40.1-51.0) % MCV 89.7 (80.0-100.0) fL MCH 31.1 (25.0-34.0) pg MCHC 34.7 (32.0-36.0) g/dL RDW Std Deviation 47.1 H (36.4-46.3) fL RDW Coeff of Bradly 14.6 H (11.5-14.5) % Plt Count 136 (130-400) K/uL MPV 8.8 L (9.4-12.4) fL Immature Gran % (Auto) 0.4 % Neut % (Auto) 74.4 % Lymph % (Auto) 12.4 % [place] % (Auto) 12.2 % Eos % (Auto) 0.4 % Baso % (Auto) 0.2 % Neut # (Auto) 3.71 (1.4-6.5) K/uL Lymph # (Auto) 0.62 L (1.2-3.4) K/uL [place] # (Auto) 0.61 (0.24-0.82) K/uL Eos # (Auto) 0.02 (0-0.50) K/uL Baso # (Auto) 0.01 (0-0.2) K/uL Immature Gran # (Auto) 0.02 (0.00-0.02) K/uL PT 20.8 H (9.0-12.0) Seconds INR 2.0 H (0.9-1.1) Sodium (136-145) mmol/L Potassium (3.5-5.1) mmol/L Chloride (98-107) mmol/L Carbon Dioxide (21-32) mmol/L Anion Gap (3-11) BUN (6-23) mg/dl Creatinine (0.6-1.4) mg/dl Est Cr Clr Drug Dosing Est GFR ( Amer) ml/min Est GFR (Non-Af Amer) ml/min BUN/Creatinine Ratio (10-20) Glucose (70-99(Fasting)) mg/dl Calcium (8.5-10.1) mg/dl Total Bilirubin (0.2-1.0) mg/dl AST (13-39) U/L ALT (7-52) U/L Alkaline Phosphatase (34-104) U/L Troponin I High Sens (0-20) pg/ml Total Protein (6.0-8.3) gm/dl Albumin (3.4-5.0) gm/dl Globulin (2.5-4.0) gm/dl Albumin/Globulin Ratio (0.9-2) Lipase (11-82) U/L Urine Color Urine Appearance (Clear) Urine pH (4.5-7.5) Ur Specific [place] (1.000-1.030) Urine Protein (Negative) Urine Glucose (UA) (Negative) Urine Ketones (Negative) Urine Blood (Negative) Urine Nitrite (Negative) Urine Bilirubin (Negative) Urine Urobilinogen (Negative) Ur Leukocyte Esterase (Negative) SARS-CoV-2 (PCR) NEGATIVE (Negative) Influenza Type A (PCR) Negative (Neg) Influenza Type B (PCR) Negative (Neg) RSV (RT-PCR) Negative (Neg) 10/15/22 10/15/22 Range/Units Unknown Unknown WBC (4.8-10.8) K/ul RBC (4.63-6.08) M/uL Hgb (14.0-18.0) g/dl Hct (40.1-51.0) % MCV (80.0-100.0) fL MCH (25.0-34.0) pg MCHC (32.0-36.0) g/dL RDW Std Deviation (36.4-46.3) fL RDW Coeff of Bradly (11.5-14.5) % Plt Count (130-400) K/uL MPV (9.4-12.4) fL Immature Gran % (Auto) % Neut % (Auto) % Lymph % (Auto) % [place] % (Auto) % Eos % (Auto) % Baso % (Auto) % Neut # (Auto) (1.4-6.5) K/uL Lymph # (Auto) (1.2-3.4) K/uL [place] # (Auto) (0.24-0.82) K/uL Eos # (Auto) (0-0.50) K/uL Baso # (Auto) (0-0.2) K/uL Immature Gran # (Auto) (0.00-0.02) K/uL PT (9.0-12.0) Seconds INR (0.9-1.1) Sodium 140 (136-145) mmol/L Potassium 3.4 L (3.5-5.1) mmol/L Chloride 105 (98-107) mmol/L Carbon Dioxide 25 (21-32) mmol/L Anion Gap 10 (3-11) BUN 16 (6-23) mg/dl Creatinine 0.71 (0.6-1.4) mg/dl Est Cr Clr Drug Dosing Not Reportable Est GFR ( Amer) 101.3 ml/min Est GFR (Non-Af Amer) 87.4 ml/min BUN/Creatinine Ratio 22.5 H (10-20) Glucose 163 H (70-99(Fasting)) mg/dl Calcium 8.5 (8.5-10.1) mg/dl Total Bilirubin 1.2 H (0.2-1.0) mg/dl AST 15 (13-39) U/L ALT 17 (7-52) U/L Alkaline Phosphatase 176 H (34-104) U/L Troponin I High Sens 40.5 H (0-20) pg/ml Total Protein 6.1 (6.0-8.3) gm/dl Albumin 3.3 L (3.4-5.0) gm/dl Globulin 2.8 (2.5-4.0) gm/dl Albumin/Globulin Ratio 1.2 (0.9-2) Lipase 8 L (11-82) U/L Urine Color Yellow Urine Appearance Clear (Clear) Urine pH 5.0 (4.5-7.5) Ur Specific [place] 1.008 (1.000-1.030) Urine Protein Negative (Negative) Urine Glucose (UA) Negative (Negative) Urine Ketones Negative (Negative) Urine Blood Negative (Negative) Urine Nitrite Negative (Negative) Urine Bilirubin Negative (Negative) Urine Urobilinogen Negative (Negative) Ur Leukocyte Esterase Negative (Negative) SARS-CoV-2 (PCR) (Negative) Influenza Type A (PCR) (Neg) Influenza Type B (PCR) (Neg) RSV (RT-PCR) (Neg) Imaging Data Radiologist's Impression: Chest X-Ray 10/15/22 13:37 XR chest 1V portable HISTORY: Atypical chest pain. COMPARISON: Chest 03/28/2022. FINDINGS: No pneumothorax. No pleural effusions. The heart remains mildly enlarged. There are poststernotomy changes and left-sided dual-chamber pacemaker. Emphysema is again noted. Right basilar linear densities persist and favor subsegmental atelectasis or scarring. No new focal lung consolidations to suggest a pneumonia. No evidence for pulmonary edema. Scattered pulmonary nodules consistent with the patient's known history of metastatic disease. IMPRESSION: 1. No significant change compared to the prior study. No acute process within the chest. 2. Scattered pulmonary nodules again noted consistent with the patient's history of metastatic disease. 3. Mild emphysema. ACT 112: Negative or not required by law. Electronically signed by: Lamin Lal M.D. 10/15/2022 1:48 PM Discharge Plan Visit Data Chief Complaint: Chest Pain ED Provider: Mk Davis Discharge Problem: Chest pain, SOB (shortness of breath), Elevated troponin Forms Stand Alone Forms: My [facility] Prescriptions Prescriptions: No Action omeprazole 20 mg capsule,delayed release(DR/EC) 20 mg PO BID potassium chloride [Klor-Con M10] 10 mEq tablet,ER particles/crystals 10 meq PO DAILY Glucosamine Chondroitin 550-30-1 mg Capsule 1 cap PO BID nitroglycerin [Nitrostat] 0.4 mg Tablet, Sublingual 0.4 mg sublingual DIRECTED PRN (Reason: Chest Pain) Rx Instructions: NEEDED FOR CHEST PAIN : ONE TABLET UNDER THE TONGUE EVERY 5 MINUTES UP TO 3 DOSES. cholecalciferol (vitamin D3) 25 mcg (1,000 unit) Tablet 1,000 mcg PO DAILY metoprolol succinate 50 mg tablet extended release 24 hr 50 mg PO AMPM amiodarone 200 mg tablet 200 mg PO DAILY loratadine [Claritin] 10 mg Tablet 10 mg PO DAILY albuterol sulfate [Ventolin HFA] 90 mcg/actuation Hfa Aerosol Inhaler 1 inh INHALATION Q6H PRN (Reason: Shortness Of Breath Or Wheezing) PreserVision AREDS-2 250-90-40-1 mg Capsule 2 tab PO DAILY prednisone 5 mg tablet 5 mg PO BID fluticasone propionate 50 mcg/actuation spray,suspension 2 spray INTRANASAL BID abiraterone 250 mg tablet 1,000 mg PO DAILYBB Rx Instructions: TAKE FOUR TABLETS IN THE AM ON AN EMPTY STOMACH ( ONE HOUR BEFORE OR TWO HOURS AFTER FOOD). famotidine [Pepcid] 20 mg tablet 20 mg PO BID acetaminophen [Tylenol] 325 mg Tablet 650 - 975 mg PO DAILY PRN (Reason: PAIN/FEVER) ascorbic acid (vitamin C) [Vitamin C] 500 mg Tablet 1,000 mg PO DAILY hydrocortisone 2.5 % Cream 1 applic TOPICAL DAILY PRN (Reason: UNDERARMS FOR FLARE UPS) tamsulosin [Flomax] 0.4 mg Capsule 0.4 mg PO DAILY tacrolimus 0.1 % Ointment 1 applic TOPICAL BID PRN (Reason: FLARES OF PSORIASIS) warfarin 5 mg tablet See Rx Instructions .ROUTE .COMPLEX Rx Instructions: TAKES QPM. TAKE DIRECTED FROM [facility] aspirin 81 mg Tablet,Chewable 81 mg PO DAILY furosemide [Lasix] 20 mg Tablet 20 mg PO QAM glipizide 5 mg Tablet 2.5 mg PO DAILY psyllium husk [Metamucil] 0.52 gram Capsule 0.52 g PO BID Referrals Referrals: Jones Estrada MD [Primary Care Provider] -
[2022-10-15 15:28] LABS: Influenza A virus by PCR Negative (Neg); Influenza B virus by PCR Negative (Neg); RSV by PCR Negative (Neg); SARS CoV2 RNA(COVID-19) Ceph NEGATIVE (Negative)
--- NOTE | 2022-10-15 17:17 | History & Physical Report ---
Date of Service October 15, 2022 Assessment & Plan (1) SOB (shortness of breath): (2) Chest pain: (3) Aortic stenosis: (4) CAD (coronary artery disease): (5) Chronic HFrEF (heart failure with reduced ejection fraction): Plan: 81-year-old male with history of coronary disease, status post stent placement, chronic systolic congestive heart failure, ischemic cardiomyopathy 36%, Moderate aortic stenosis, paroxysmal atrial fibrillation, tachybradycardia syndrome, status post pacemaker, diabetes type 2, hypertension, PE/DVT on Coumadin, prostate cancer Presenting with progressive chest pain and dyspnea on minimal exertion. Dyspnea with minimal exertion, associated with chest tightness Possibly secondary to progression of aortic valve stenosis Possible unstable angina History of coronary disease, status post stent placement --Troponin x2 EKG in a.m. Echocardiogram Neurology Technologist consulted -- N.p.o. postmidnight --INR 2.0 -- Continue usual aspirin, metoprolol, Coumadin Chronic CHF, systolic Ischemic cardiomyopathy, EF 36% --Patient euvolemic --Continue usual Lasix 20 mg p.o. daily with potassium 10 mEq daily Paroxysmal atrial fibrillation, tachybradycardia syndrome status post pacemaker --Pacemaker interrogation --Continue Coumadin, amiodarone, metoprolol Diabetes type 2 Insulin sliding scale with NovoLog From septicemia control consult Hypertension Continue metoprolol PE/DVT history INR 2.0 Continue Coumadin Obstructive sleep apnea Will check if patient uses CPAP or BiPAP DVT prophylaxis On Coumadin, INR therapeutic CODE STATUS Full code as per patient plan of care discussed with patient and his Lucinda at the bedside, in detail and at length all questions answered They are understanding, agreeable, comfortable with the plan of care History of Present Illness Primary Care Provider: Jones Estrada MD 81-year-old male with history of coronary disease, status post stent placement, chronic systolic congestive heart failure, ischemic cardiomyopathy 36%, Moderate aortic stenosis, paroxysmal atrial fibrillation, tachybradycardia syndrome, status post pacemaker, diabetes type 2, hypertension, PE/DVT on Coumadin, prostate cancer Presenting with progressive chest pain and dyspnea on minimal exertion. Patient follows with [facility] cardiology for few months history of chest pain, shortness of breath. He had a cardiac catheterization performed on 2021. Apparently, he is currently being evaluated for possible aortic valve surgery. Patient reports that for the past 5 days, he has been having intermittent chest pain and shortness of breath with minimal exertion. He reports that he experiences shortness of breath when walking from bedroom to the dining area. This is relieved by rest. Patient does not take nitroglycerin for chest pain or shortness of breath. At the ER, patient admitted with stable vital signs, O2 saturation more than 90%. Troponin level negative EKG showing paced rhythm, no signs of acute ischemia or infarct Chest x-ray: No signs of infiltrates or pleural effusion On exam, patient is chest pain-free, denies shortness of breath, palpitations, dizziness. No cough, fevers or chills, abdominal pain, nausea vomiting. Allergies Allergy/AdvReac Type Severity Reaction Status Date / Time No Known Allergies Allergy Verified 10/15/22 16:38 Home Medications Medication Instructions Recorded Confirmed Type glucosamine sulf dipot 1 cap PO BID 02/21/19 10/15/22 History chlr,msm,chond 550 mg-C 30 mg-erum 1 mg capsule (Glucosamine Chondroitin) nitroglycerin 0.4 mg sublingual 0.4 mg sublingual DIRECTED PRN 02/21/19 10/15/22 History tablet (Nitrostat) Chest Pain omeprazole 20 mg capsule,delayed 20 mg PO BID 02/21/19 10/15/22 History release potassium chloride 10 mEq 10 meq PO DAILY 02/21/19 10/15/22 History tablet,extended release(part/cryst) (Klor-Con M) cholecalciferol (vitamin D3) 25 1,000 mcg PO DAILY 01/08/21 10/15/22 History mcg (1,000 unit) tablet metoprolol succinate 50 mg 50 mg PO AMPM 06/13/21 10/15/22 History tablet,extended release 24 hr vit C 250 mg-vit E 90 mg-zinc 40 2 tab PO DAILY 10/16/21 10/15/22 History mg-copper 1 [id number] capsule (PreserVision AREDS-2) abiraterone 250 mg tablet 1,000 mg PO DAILYBB 03/17/22 10/15/22 History famotidine 20 mg tablet (Pepcid) 20 mg PO BID 03/17/22 10/15/22 History fluticasone propionate 50 2 spray intranasal BID 03/17/22 10/15/22 History mcg/actuation nasal spray,suspension prednisone 5 mg tablet 5 mg PO BID 03/17/22 10/15/22 History acetaminophen 325 mg tablet 650 - 975 mg PO DAILY PRN 03/28/22 10/15/22 History (Tylenol) PAIN/FEVER ascorbic acid (vitamin C) 500 mg 1,000 mg PO DAILY 03/28/22 10/15/22 History tablet (Vitamin C) hydrocortisone 2.5 % topical cream 1 applic topical DAILY PRN 03/28/22 10/15/22 History UNDERARMS FOR FLARE UPS albuterol sulfate 90 mcg/actuation 1 inh inhalation Q6H PRN Shortness 07/04/22 10/15/22 History aerosol inhaler (Ventolin HFA) Of Breath Or Wheezing amiodarone 200 mg tablet 200 mg PO DAILY 07/04/22 10/15/22 History loratadine 10 mg tablet (Claritin) 10 mg PO DAILY 07/04/22 10/15/22 History aspirin 81 mg chewable tablet 81 mg PO DAILY 10/15/22 10/15/22 History furosemide 20 mg tablet (Lasix) 20 mg PO QAM 10/15/22 10/15/22 History glipizide 5 mg tablet 2.5 mg PO DAILY 10/15/22 10/15/22 History psyllium husk 0.52 gram capsule 0.52 g PO BID 10/15/22 10/15/22 History tacrolimus 0.1 % topical ointment 1 applic topical BID PRN FLARES OF 10/15/22 10/15/22 History PSORIASIS tamsulosin 0.4 mg capsule (Flomax) 0.4 mg PO DAILY 10/15/22 10/15/22 History warfarin 5 mg tablet See Rx Instructions .Route .COMPLEX 10/15/22 10/15/22 History Past Med/Surg History Medical History Aortic stenosis Asthma CAD (coronary artery disease) Status post PCI with a BMS to the mid LAD on 05/16/2016. 2.May 26, 2016 diagnostic cardiac catheterization at [facility], Dr. 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 Also, far beyond the stent, there was visible healed dissection flap, Type B, non- obstructive. 3.Status post CABG x 1 with a ABRAMS to LAD for persistent angina, May 2016. 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 Surgical History H/O esophagogastroduodenoscopy Hx of total knee arthroplasty S/P CABG x 1 S/P cholecystectomy S/P hip replacement S/P knee replacement Family History Other Diabetes Heart disease Social History Smoking Status: Former smoker Tobacco Type: Cigarettes Cigarettes Per Day: 40; Second Hand Exposure: No; Hx Alcohol Use: No Hx Substance Use: No Preferred Language: Turkmen Communication Ability: Effective Visual Impairment: No Limitations Hearing Ability: Normal Assistant Shift Supervisor Required: No Beliefs That Will Affect Care: None marital status: Current Living Situation: Spouse Current Living Situation Comment: Home with Feels Safe at Home: Yes Assistive Devices: Cane Review of Systems Review of Systems: all noted and negative except for above Physical Exam Physical Exam: General- oriented x 3, not in distress, speaks in sentences with no effort or accessory muscle use Head- atraumatic Eyes- PERRL, EOMI, anicteric ENT- oropharynx clear Neck- supple, no JVD, no adenopathy, no thyromegaly; carotids +2/2, no bruits appreciated Lungs- clear to auscultation bilaterally, no rales/wheezes Heart- normal rate, regular rhythm; positive grade 3-4 holosystolic murmur Abdomen- normal bowel sounds, nondistended, soft, nontender, no masses or hepatosplenomegaly Extremities- no pretibial edema, no calf tenderness; peripheral pulses intact Neuro- alert, oriented x 3; CN 2-12 grossly intact; motor 5/5 bilaterally;sensation 100% on all extremities; no other gross focal neurologic deficits Skin- warm & dry Results & Data Results & Data ([place]) Vital Signs (Past 12 Hours) Vital Signs Temp Pulse Resp BP Pulse Ox O2 Del Method 10/15/22 16:30 60 19 134/86 94 10/15/22 16:00 60 16 90 10/15/22 15:30 60 16 93 10/15/22 15:00 60 15 134/86 94 10/15/22 14:30 60 16 134/86 93 10/15/22 14:00 60 22 92 10/15/22 13:30 66 15 94 10/15/22 13:37 60 20 94 Room Air 10/15/22 13:10 24 95 Room Air 10/15/22 13:10 95 Room Air 10/15/22 13:10 36.7 C 62 24 134/86 95 Room Air all noted and reviewed including below Code Status & VTE Plan VTE Prophylaxis Plan VTE Prophylaxis will be ordered: Yes
[2022-10-15] MEDS ORDERED: GLUCOSE 10 TAB/TUBE PO PRN (20:03)
[2022-10-15] MEDS ORDERED: PHARMACY GLYCEMIC MGMT CONSULT PRN (20:03)
[2022-10-15] MEDS ORDERED: GLUCOSE 40% GEL 15 GM TUBE PO PRN (20:03)
[2022-10-15] MEDS ORDERED: GLUCAGON FOR INJ 1 MG VIAL SQ PRN (20:03)
[2022-10-15] MEDS ORDERED: ACETAMINOPHEN 325 MG TAB PO PRN (20:03)
[2022-10-15] MEDS ORDERED: DEXTROSE 50% 50 ML SYRINGE IV PRN (20:03)
[2022-10-15] MEDS ORDERED: NITROGLYCERIN SL 0.4 MG/TAB TAB SL PRN (20:03)
[2022-10-15] MEDS ORDERED: CARBOHYDRATES FOR HYPOGLYCEMIA PO PRN (20:03)
[2022-10-15] MEDS: predniSONE 5 MG TAB PO SCH (21:57)
[2022-10-15] MEDS: INSULIN ASPART PER UNIT SC SCH (21:57)
[2022-10-15] MEDS: PANTOprazole 40 MG TAB PO SCH (21:57)
[2022-10-15] MEDS: METOPROLOL SUCC 50MG EXT REL TAB PO SCH (21:57)
[2022-10-15] MEDS: FAMOTIDINE 20 MG TAB PO SCH (21:57)
[2022-10-16 06:19] LABS: Basophils # (auto) 0.01 K/uL (0-0.2); Basophils % (auto) 0.2 %; Eosinophils # (auto) 0.01 K/uL (0-0.50); Eosinophils % (auto) 0.2 %; Hematocrit (blood only) 34.7 % (40.1-51.0); Hemoglobin 11.6 g/dl (14.0-18.0); Immature Granulocytes # (auto) 0.02 K/uL (0.00-0.02); Immature Granulocytes % (auto) 0.5 %; Lymphocytes # (auto) 0.72 K/uL (1.2-3.4); Lymphocytes % (auto) 16.8 %; Mean Platelet Volume 8.8 fL (9.4-12.4); Monocytes # (auto) 0.43 K/uL (0.24-0.82); Neutrophils # (auto) 3.09 K/uL (1.4-6.5); Neutrophils % (auto) 72.3 %; Platelet Count 120 K/uL (130-400); White Blood Count 4.28 K/ul (4.8-10.8)
[2022-10-16 06:51] LABS: Mean Corpuscular Hemoglobin 30.4 pg (25.0-34.0); Mean Corpuscular Hgb Conc 33.4 g/dL (32.0-36.0); Mean Corpuscular Volume 90.8 fL (80.0-100.0); RDW Coefficient of Variation 14.5 % (11.5-14.5); RDW Standard Deviation 48.3 fL (36.4-46.3); Red Blood Count 3.82 M/uL (4.63-6.08)
[2022-10-16 07:02] LABS: Troponin I High Sensitivity 27.9 pg/ml (0-20)
[2022-10-16 07:05] LABS: BUN Creatinine Ratio 25.4 (10-20); Calcium 7.9 mg/dl (8.5-10.1); Creatinine Clr Calc Pharmacy 93.6 ml/min; Est GFR (African American) 101.3 ml/min; Est GFR (Non-African American) 87.4 ml/min; Potassium 3.6 mmol/L (3.5-5.1)
[2022-10-16 08:35] LABS: Estimated Average Glucose 169 mg/dl; Hemoglobin A1C 7.5 % (4.5-5.6)
[2022-10-16] MEDS ORDERED: TAMSULOSIN HCL 0.4 MG CAP PO SCH (09:00)
[2022-10-16] MEDS ORDERED: POTASSIUM CHLORIDE 10 MEQ TABCR PO SCH (09:00)
[2022-10-16] MEDS ORDERED: ASPIRIN 81 MG ECTAB PO SCH (09:00)
[2022-10-16] MEDS ORDERED: FUROSEMIDE 20 MG TAB PO SCH (09:00)
[2022-10-16] MEDS ORDERED: AMIODARONE 200 MG TAB PO SCH (09:00)
[2022-10-16] MEDS: INSULIN ASPART PER UNIT SC SCH ×3 (09:04→16:50)
--- NOTE | 2022-10-16 09:04 | Cardiology Consultation ---
Date of Consultation October 16, 2022 Assessment & Plan (1) Chest pain: (2) SOB (shortness of breath): (3) Chronic HFrEF (heart failure with reduced ejection fraction): (4) Ischemic cardiomyopathy: (5) Aortic stenosis: Plan Patient is an 81-year-old male with complex constellation of cardiac issues including ischemic cardiomyopathy with single-vessel coronary disease status post bypass grafting (patent left internal mammary artery graft cardiac catheterization August 2022), compensated congestive heart failure and worsening aortic stenosis. Patient currently in the process of being evaluated for TAVR. Presents now with increasing symptoms of chest pressure and shortness of breath x2 to 3 days without precipitating cause. Exam and findings do not suggest pulmonary edema or hypoxia. 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 Will likely need additional imaging of LV apex, question expedite aortic valve replacement. History of Present Illness Reason for Consultation: Exertional dyspnea Requesting Physician: Wisam Johnson MD Attending Physician: Wisam Johnson MD History of Present Illness Patient is an 81-year-old male with ongoing complex cardiac and medical issues which include 1. Severe calcific aortic stenosis 2.Chronic ischemic heart disease, single-vessel,status post bare-metal stent to mid left anterior descending May 2016 complicated by thrombosis, with subsequent coronary bypass grafting ABRAMS graft left anterior descending.Patent left internal mammary graft by cardiac catheterization August 2022 3. Ischemic cardiomyopathy with moderate left ventricular dysfunction 4. Paroxysmal atrial fibrillation 5. 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 Type 2 diabetes mellitus 7. Obstructive sleep apnea 8. Metastatic prostate cancer with pulmonary nodules, mediastinal lymphadenopathy on chronic prednisone 9. Prior DVT pulmonary emboli on anticoagulation with warfarin Patient presents this admission noting having been in process of evaluation of significant aortic stenosis with planned possible TAVR. He presents now noting increasing dyspnea with minimal exertion with associated chest pressure. Symptoms occurred with minimal activities in room. Resolved on ER presentation. No fevers chills or productive cough no signs or symptoms of acute volume overload or edema. No acute weight gain. No illnesses at home. Currently comfortable Allergies Allergy/AdvReac Type Severity Reaction Status Date / Time No Known Allergies Allergy Verified 10/15/22 16:38 Home Medications Medication Instructions Recorded Confirmed Type glucosamine sulf dipot 1 cap PO BID 02/21/19 10/15/22 History chlr,msm,chond 550 mg-C 30 mg-erum 1 mg capsule (Glucosamine Chondroitin) nitroglycerin 0.4 mg sublingual 0.4 mg sublingual DIRECTED PRN 02/21/19 10/15/22 History tablet (Nitrostat) Chest Pain omeprazole 20 mg capsule,delayed 20 mg PO BID 02/21/19 10/15/22 History release potassium chloride 10 mEq 10 meq PO DAILY 02/21/19 10/15/22 History tablet,extended release(part/cryst) (Klor-Con M) cholecalciferol (vitamin D3) 25 1,000 mcg PO DAILY 01/08/21 10/15/22 History mcg (1,000 unit) tablet metoprolol succinate 50 mg 50 mg PO AMPM 06/13/21 10/15/22 History tablet,extended release 24 hr vit C 250 mg-vit E 90 mg-zinc 40 2 tab PO DAILY 10/16/21 10/15/22 History mg-copper 1 [id number] capsule (PreserVision AREDS-2) abiraterone 250 mg tablet 1,000 mg PO DAILYBB 03/17/22 10/15/22 History famotidine 20 mg tablet (Pepcid) 20 mg PO BID 03/17/22 10/15/22 History fluticasone propionate 50 2 spray intranasal BID 03/17/22 10/15/22 History mcg/actuation nasal spray,suspension prednisone 5 mg tablet 5 mg PO BID 03/17/22 10/15/22 History acetaminophen 325 mg tablet 650 - 975 mg PO DAILY PRN 03/28/22 10/15/22 History (Tylenol) PAIN/FEVER ascorbic acid (vitamin C) 500 mg 1,000 mg PO DAILY 03/28/22 10/15/22 History tablet (Vitamin C) hydrocortisone 2.5 % topical cream 1 applic topical DAILY PRN 03/28/22 10/15/22 History UNDERARMS FOR FLARE UPS albuterol sulfate 90 mcg/actuation 1 inh inhalation Q6H PRN Shortness 07/04/22 10/15/22 History aerosol inhaler (Ventolin HFA) Of Breath Or Wheezing amiodarone 200 mg tablet 200 mg PO DAILY 07/04/22 10/15/22 History loratadine 10 mg tablet (Claritin) 10 mg PO DAILY 07/04/22 10/15/22 History aspirin 81 mg chewable tablet 81 mg PO DAILY 10/15/22 10/15/22 History furosemide 20 mg tablet (Lasix) 20 mg PO QAM 10/15/22 10/15/22 History glipizide 5 mg tablet 2.5 mg PO DAILY 10/15/22 10/15/22 History psyllium husk 0.52 gram capsule 0.52 g PO BID 10/15/22 10/15/22 History tacrolimus 0.1 % topical ointment 1 applic topical BID PRN FLARES OF 10/15/22 10/15/22 History PSORIASIS tamsulosin 0.4 mg capsule (Flomax) 0.4 mg PO DAILY 10/15/22 10/15/22 History warfarin 5 mg tablet See Rx Instructions .Route .COMPLEX 10/15/22 10/15/22 History Patient History Medical History Aortic stenosis Asthma CAD (coronary artery disease) Status post PCI with a BMS to the mid LAD on 05/16/2016. 2.May 26, 2016 diagnostic cardiac catheterization at [facility] Dr. 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 Also, far beyond the stent, there was visible healed dissection flap, Type B, non- obstructive. 3.Status post CABG x 1 with a ABRAMS to LAD for persistent angina, May 2016. 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 Surgical History H/O esophagogastroduodenoscopy Hx of total knee arthroplasty S/P CABG x 1 S/P cholecystectomy S/P hip replacement S/P knee replacement Family History Other Diabetes Heart disease Social History Smoking Status: Former smoker Tobacco Type: Cigarettes Cigarettes Per Day: 40; Second Hand Exposure: No; Hx Alcohol Use: No Hx Substance Use: No Preferred Language: Azeri Communication Ability: Effective Visual Impairment: No Limitations Hearing Ability: Normal Ground Support Equipment Assembler Required: No Beliefs That Will Affect Care: None marital status: Current Living Situation: Spouse Current Living Situation Comment: Home with Feels Safe at Home: Yes Safety Concerns: Feels Safe At This Time Assistive Devices: Glasses and Hearing Aid - Bilateral Review of Systems Review of Systems: All systems reviewed & are unremarkable except as noted in HPI & below Physical Exam Constitutional: WD/WN, vitals as above no acute distress Eyes: PERRL, conjunctivae normal, anicteric sclerae ENMT: external ear and nose normal, oropharynx normal Neck: trachea midline, no thyromegaly Respiratory: + audible wheezes (With cough) Cardiovascular: Rate/Rhythm: regular rate and regular rhythm (Paced) Heart Sounds: + murmur (Wheezy harsh grade 3/6 systolic murmur, no diastolic) Vessels: no JVD Extremities: no edema Gastrointestinal (Abdomen): normal bowel sounds, soft, nontender, no hepatosplenomegaly Musculoskeletal: no cyanosis or clubbing, extremities motor strength 5/5 Skin: no rashes, warm and dry Results & Data ([facility]) Vital Signs (Past 12 Hours) Vital Signs Temp Pulse Pulse Resp BP Pulse Ox O2 Del Method 10/16/22 07:28 60 10/15/22 22:04 85 10/16/22 04:21 37.1 C 63 18 131/73 94 Room Air 10/16/22 00:14 36.7 C 76 18 90/56 L 96 Room Air Laboratory Results Laboratory Results - last 24 hr 10/15/22 10/15/22 10/15/22 14:35 20:21 21:46 WBC RBC Hgb Hct MCV MCH MCHC RDW Std Deviation RDW Coeff of Bradly Plt Count MPV Immature Gran % (Auto) Neut % (Auto) Lymph % (Auto) [place] % (Auto) Eos % (Auto) Baso % (Auto) Neut # (Auto) Lymph # (Auto) [place] # (Auto) Eos # (Auto) Baso # (Auto) Immature Gran # (Auto) PT INR Sodium Potassium Chloride Carbon Dioxide Anion Gap BUN Creatinine Est Cr Clr Drug Dosing Est GFR ( Amer) Est GFR (Non-Af Amer) BUN/Creatinine Ratio Glucose POC Glucose 179 H Estimat Average Glucose Hemoglobin A1c Calcium Total Bilirubin AST ALT Alkaline Phosphatase Troponin I High Sens 32.4 H Total Protein Albumin Globulin Albumin/Globulin Ratio Lipase Urine Color Urine Appearance Urine pH Ur Specific [place] Urine Protein Urine Glucose (UA) Urine Ketones Urine Blood Urine Nitrite Urine Bilirubin Urine Urobilinogen Ur Leukocyte Esterase SARS-CoV-2 (PCR) NEGATIVE Influenza Type A (PCR) Negative Influenza Type B (PCR) Negative RSV (RT-PCR) Negative 10/15/22 10/15/22 10/15/22 Unknown Unknown Unknown WBC 4.99 RBC 4.08 L Hgb 12.7 L Hct 36.6 L MCV 89.7 MCH 31.1 MCHC 34.7 RDW Std Deviation 47.1 H RDW Coeff of Bradly 14.6 H Plt Count 136 MPV 8.8 L Immature Gran % (Auto) 0.4 Neut % (Auto) 74.4 Lymph % (Auto) 12.4 [place] % (Auto) 12.2 Eos % (Auto) 0.4 Baso % (Auto) 0.2 Neut # (Auto) 3.71 Lymph # (Auto) 0.62 L [place] # (Auto) 0.61 Eos # (Auto) 0.02 Baso # (Auto) 0.01 Immature Gran # (Auto) 0.02 PT 20.8 H INR 2.0 H Sodium 140 Potassium 3.4 L Chloride 105 Carbon Dioxide 25 Anion Gap 10 BUN 16 Creatinine 0.71 Est Cr Clr Drug Dosing Not Reportable Est GFR ( Amer) 101.3 Est GFR (Non-Af Amer) 87.4 BUN/Creatinine Ratio 22.5 H Glucose 163 H POC Glucose Estimat Average Glucose Hemoglobin A1c Calcium 8.5 Total Bilirubin 1.2 H AST 15 ALT 17 Alkaline Phosphatase 176 H Troponin I High Sens 40.5 H Total Protein 6.1 Albumin 3.3 L Globulin 2.8 Albumin/Globulin Ratio 1.2 Lipase 8 L Urine Color Urine Appearance Urine pH Ur Specific [place] Urine Protein Urine Glucose (UA) Urine Ketones Urine Blood Urine Nitrite Urine Bilirubin Urine Urobilinogen Ur Leukocyte Esterase SARS-CoV-2 (PCR) Influenza Type A (PCR) Influenza Type B (PCR) RSV (RT-PCR) 10/15/22 10/16/22 10/16/22 Unknown 05:24 05:24 WBC 4.28 L RBC 3.82 L Hgb 11.6 L Hct 34.7 L MCV 90.8 MCH 30.4 MCHC 33.4 RDW Std Deviation 48.3 H RDW Coeff of Bradly 14.5 Plt Count 120 L MPV 8.8 L Immature Gran % (Auto) 0.5 Neut % (Auto) 72.3 Lymph % (Auto) 16.8 [place] % (Auto) 10.0 Eos % (Auto) 0.2 Baso % (Auto) 0.2 Neut # (Auto) 3.09 Lymph # (Auto) 0.72 L [place] # (Auto) 0.43 Eos # (Auto) 0.01 Baso # (Auto) 0.01 Immature Gran # (Auto) 0.02 PT INR Sodium 137 Potassium 3.6 Chloride 103 Carbon Dioxide 28 Anion Gap 6 BUN 18 Creatinine 0.71 Est Cr Clr Drug Dosing 93.6 Est GFR ( Amer) 101.3 Est GFR (Non-Af Amer) 87.4 BUN/Creatinine Ratio 25.4 H Glucose 219 H POC Glucose Estimat Average Glucose Hemoglobin A1c Calcium 7.9 L Total Bilirubin AST ALT Alkaline Phosphatase Troponin I High Sens 27.9 H Total Protein Albumin Globulin Albumin/Globulin Ratio Lipase Urine Color Yellow Urine Appearance Clear Urine pH 5.0 Ur Specific [place] 1.008 Urine Protein Negative Urine Glucose (UA) Negative Urine Ketones Negative Urine Blood Negative Urine Nitrite Negative Urine Bilirubin Negative Urine Urobilinogen Negative Ur Leukocyte Esterase Negative SARS-CoV-2 (PCR) Influenza Type A (PCR) Influenza Type B (PCR) RSV (RT-PCR) 10/16/22 10/16/22 05:24 07:18 WBC RBC Hgb Hct MCV MCH MCHC RDW Std Deviation RDW Coeff of Bradly Plt Count MPV Immature Gran % (Auto) Neut % (Auto) Lymph % (Auto) [place] % (Auto) Eos % (Auto) Baso % (Auto) Neut # (Auto) Lymph # (Auto) [place] # (Auto) Eos # (Auto) Baso # (Auto) Immature Gran # (Auto) PT INR Sodium Potassium Chloride Carbon Dioxide Anion Gap BUN Creatinine Est Cr Clr Drug Dosing Est GFR ( Amer) Est GFR (Non-Af Amer) BUN/Creatinine Ratio Glucose POC Glucose 203 H Estimat Average Glucose 169 Hemoglobin A1c 7.5 H Calcium Total Bilirubin AST ALT Alkaline Phosphatase Troponin I High Sens Total Protein Albumin Globulin Albumin/Globulin Ratio Lipase Urine Color Urine Appearance Urine pH Ur Specific [place] Urine Protein Urine Glucose (UA) Urine Ketones Urine Blood Urine Nitrite Urine Bilirubin Urine Urobilinogen Ur Leukocyte Esterase SARS-CoV-2 (PCR) Influenza Type A (PCR) Influenza Type B (PCR) RSV (RT-PCR) ECG Additional Comments: Atrial paced rhythm with right bundle branch block, left axis deviation unchanged from prior tracings
[2022-10-16] MEDS: PANTOprazole 40 MG TAB PO SCH (09:05)
[2022-10-16] MEDS: FAMOTIDINE 20 MG TAB PO SCH (09:05)
[2022-10-16] MEDS: METOPROLOL SUCC 50MG EXT REL TAB PO SCH (09:05)
[2022-10-16] MEDS: predniSONE 5 MG TAB PO SCH (09:06)
[2022-10-16 09:25] LABS: INR 1.7 (0.9-1.1); Prothrombin Time 17.3 Seconds (9.0-12.0)
--- NOTE | 2022-10-16 10:34 | Pharmacy Report ---
Pharmacy Glycemic Short Note 2 - Date of Service October 16, 2022 - Glycemic Short BSG Results (Last 24 hours): 10/15/22 10/15/22 10/16/22 20:21 Unknown 05:24 Glucose 163 H 219 H POC Glucose 179 H 10/16/22 07:18 Glucose POC Glucose 203 H OUTPATIENT ANTIDIABETIC REGIMEN: * glipizide 2.5mg PO daily HbA1C: 7.5% ASSESSMENT: * Patient is an 81 year old male with a history of DM2 admitted with SOB and chest pain. Pharmacy consulted to assist with glycemic management while admitted. * BSGs - 179, 203mg/dL since admission. Patient received 3 units of Novolog last evening. * Currently NPO and on prednisone 5mg PO BID. * Will initiate Novolog alone for now given only on single PO medication at home. Titrate parameters as needed for elevated BSGs. PLAN FOR INPATIENT GLYCEMIC CONTROL: * Hold outpatient oral diabetes medications * Basal insulin * hold * Bolus insulin * NovoLog per scale ACHS or Q6hrs while NPO * Goal Range: Low 110 mg/dL - High 140 mg/dL * Correction Factor: 30 mg/dL/unit * Nutritional / Prandial insulin per carb ratio of 1 unit per 20 grams CHO consumed
--- NOTE | 2022-10-16 14:17 | Hospitalist Progress Note ---
Date of Service October 16, 2022 Assessment & Plan (1) SOB (shortness of breath): (2) Chest pain: (3) Aortic stenosis: (4) CAD (coronary artery disease): (5) Chronic HFrEF (heart failure with reduced ejection fraction): Plan: 81-year-old male with history of coronary disease, status post stent placement, chronic systolic congestive heart failure, ischemic cardiomyopathy 36%, Moderate aortic stenosis, paroxysmal atrial fibrillation, tachybradycardia syndrome, status post pacemaker, diabetes type 2, hypertension, PE/DVT on Coumadin, prostate cancer Presenting with progressive chest pain and dyspnea on minimal exertion. Dyspnea with minimal exertion, associated with chest tightness Possibly secondary to progression of aortic valve stenosis Possible unstable angina History of coronary disease, status post stent placement --Troponin 32, 40, 27 EKG no signs of acute ischemia or infarct Echocardiogram new apical aneurysm [employer] T[employer] Builder consulted-recommend transfer to [facility] for further evaluation, Possible urgent aortic valve stenosis -- N.p.o. postmidnight --INR 1.7 -- Continue usual aspirin, metoprolol, Coumadin Chronic CHF, systolic Ischemic cardiomyopathy, EF 36% --Patient euvolemic --Continue usual Lasix 20 mg p.o. daily with potassium 10 mEq daily Paroxysmal atrial fibrillation, tachybradycardia syndrome status post pacemaker --Pacemaker interrogation --Continue Coumadin, amiodarone, metoprolol Diabetes type 2 -- Insulin sliding scale with NovoLog Hypertension Continue metoprolol PE/DVT history INR 1.7 Continue Coumadin Obstructive sleep apnea DVT prophylaxis On Coumadin, INR therapeutic CODE STATUS Full code as per patient plan of care discussed with patient and his Lucinda at the bedside, in detail and at length all questions answered They are understanding, agreeable, comfortable with the plan of care Admission and Anticipated Discharge Date Admission Date: October 15, 2022 Subjective Follow-up for aortic stenosis, etc. Seen resting in bed, comfortable, not in distress States he feels fine overall No active chest pain, shortness of breath, palpitations, dizziness No fevers or chills, cough No other symptom Review of Systems Review of Systems: all noted and negative except for above Physical Exam Physical Exam: General- oriented x 3, not in distress, speaks in sentences w ith no effort or accessory muscle use Eyes- anicteric Neck- no JVD Lungs- clear BS bilaterally, no rales/wheezes Heart- normal rate, regular rhythm; no murmurs Abdomen- normal bowel sounds, nondistended, soft, nontender Extremities- no pretibial edema, no calf tenderness Neuro- alert, oriented x 3; no gross focal neurologic deficits Skin- warm & dry Results & Data Results & Data ([facility]) Vital Signs (Past 12 Hours) Vital Signs Temp Pulse Pulse Resp BP Pulse Ox O2 Del Method 10/16/22 11:19 37.0 C 65 19 133/70 93 10/16/22 11:12 Room Air 10/16/22 10:44 37.0 C 65 19 133/70 93 Room Air 10/16/22 09:01 37.0 C 62 18 134/75 92 Room Air 10/16/22 07:28 60 10/16/22 04:21 37.1 C 63 18 131/73 94 Room Air all noted and reviewed including below
--- NOTE | 2022-10-16 14:19 | Discharge Summary ---
Discharge Summary Date of Service October 16, 2022 Notes For Next Care Provider Medication Changes From Visit None Admission HPI Per Admitting Provider 81-year-old male with history of coronary disease, status post stent placement, chronic systolic congestive heart failure, ischemic cardiomyopathy 36%, Moderate aortic stenosis, paroxysmal atrial fibrillation, tachybradycardia syn drome, status post pacemaker, diabetes type 2, hypertension, PE/DVT on Coumadin, prostate cancer Presenting with progressive chest pain and dyspnea on minimal exertion. Patient follows with [facility] cardiology for few months history of chest pain, shortness of breath. He had a cardiac catheterization performed on 2021. Apparently, he is currently being evaluated for possible aortic valve surgery. Patient reports that for the past 5 days, he has been having intermittent chest pain and shortness of breath with minimal exertion. He reports that he experiences shortness of breath when walking from bedroom to the dining area. This is relieved by rest. Patient does not take nitroglycerin for chest pain or shortness of breath. At the ER, patient admitted with stable vital signs, O2 saturation more than 90%. Troponin level negative EKG showing paced rhythm, no signs of acute ischemia or infarct Chest x-ray: No signs of infiltrates or pleural effusion On exam, patient is chest pain-free, denies shortness of breath, palpitations, dizziness. No cough, fevers or chills, abdominal pain, nausea vomiting. Admission Exam Per Admitting Provider General- oriented x 3, not in distress, speaks in sentences with no effort or accessory muscle use Head- atraumatic Eyes- PERRL, EOMI, anicteric ENT- oropharynx clear Neck- supple, no JVD, no adenopathy, no thyromegaly; carotids +2/2, no bruits appreciated Lungs- clear to auscultation bilaterally, no rales/wheezes Heart- normal rate, regular rhythm; positive grade 3-4 holosystolic murmur Abdomen- normal bowel sounds, nondistended, soft, nontender, no masses or hepatosplenomegaly Extremities- no pretibial edema, no calf tenderness; peripheral pulses intact Neuro- alert, oriented x 3; CN 2-12 grossly intact; motor 5/5 bilaterally;sensation 100% on all extremities; no other gross focal neurologic deficits Skin- warm & dry Principal Dx & Hospital Course #1 = Principal Diagnosis (1) SOB (shortness of breath): (2) Chest pain: (3) Aortic stenosis: (4) CAD (coronary artery disease): (5) Chronic HFrEF (heart failure with reduced ejection fraction): 81-year-old male with history of coronary disease, status post stent placement, chronic systolic congestive heart failure, ischemic cardiomyopathy 36%, Moderate aortic stenosis, paroxysmal atrial fibrillation, tachybradycardia syndrome, status post pacemaker, diabetes type 2, hypertension, PE/DVT on Coumadin, prostate cancer Presenting with progressive chest pain and dyspnea on minimal exertion. 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 postmidnight --INR 1.7 -- Continue usual aspirin, metoprolol, Coumadin Chronic CHF, systolic Ischemic cardiomyopathy, EF 36% --Patient euvolemic --Continue usual Lasix 20 mg p.o. daily with potassium 10 mEq daily Paroxysmal atrial fibrillation, tachybradycardia syndrome status post pacemaker --Pacemaker interrogation --Continue Coumadin, amiodarone, metoprolol Diabetes type 2 -- Insulin sliding scale with NovoLog Hypertension Continue metoprolol PE/DVT history INR 1.7 Continue Coumadin Obstructive sleep apnea DVT prophylaxis On Coumadin, INR therapeutic CODE STATUS Full code as per patient plan of care discussed with patient and his Lucinda at the bedside, in detail and at length all questions answered They are understanding, agreeable, comfortable with the plan of care Discharge Exam General- oriented x 3, not in distress, speaks in sentences with no effort or accessory muscle use Eyes- anicteric Neck- no JVD Lungs- clear breath sounds bilaterally, no rales/wheezes Heart- normal rate, regular rhythm; (+) murmur Abdomen- normal bowel sounds, nondistended, soft, nontender Extremities- no pretibial edema, no calf tenderness Neuro- alert, oriented x 3; no gross focal neurologic deficits Skin- warm & dry Updated Medication List Medication Instructions Recorded Confirmed Type glucosamine sulf dipot 1 cap PO BID 02/21/19 10/15/22 History chlr,msm,chond 550 mg-C 30 mg-erum 1 mg capsule (Glucosamine Chondroitin) nitroglycerin 0.4 mg sublingual 0.4 mg sublingual DIRECTED PRN 02/21/19 10/15/22 History tablet (Nitrostat) Chest Pain omeprazole 20 mg capsule,delayed 20 mg PO BID 02/21/19 10/15/22 History release potassium chloride 10 mEq 10 meq PO DAILY 02/21/19 10/15/22 History tablet,extended release(part/cryst) (Klor-Con M) cholecalciferol (vitamin D3) 25 1,000 mcg PO DAILY 01/08/21 10/15/22 History mcg (1,000 unit) tablet metoprolol succinate 50 mg 50 mg PO AMPM 06/13/21 10/15/22 History tablet,extended release 24 hr vit C 250 mg-vit E 90 mg-zinc 40 2 tab PO DAILY 10/16/21 10/15/22 History mg-copper 1 [id number] capsule (PreserVision AREDS-2) abiraterone 250 mg tablet 1,000 mg PO DAILYBB 03/17/22 10/15/22 History famotidine 20 mg tablet (Pepcid) 20 mg PO BID 03/17/22 10/15/22 History fluticasone propionate 50 2 spray intranasal BID 03/17/22 10/15/22 History mcg/actuation nasal spray,suspension prednisone 5 mg tablet 5 mg PO BID 03/17/22 10/15/22 History acetaminophen 325 mg tablet 650 - 975 mg PO DAILY PRN 03/28/22 10/15/22 History (Tylenol) PAIN/FEVER ascorbic acid (vitamin C) 500 mg 1,000 mg PO DAILY 03/28/22 10/15/22 History tablet (Vitamin C) hydrocortisone 2.5 % topical cream 1 applic topical DAILY PRN 03/28/22 10/15/22 History UNDERARMS FOR FLARE UPS albuterol sulfate 90 mcg/actuation 1 inh inhalation Q6H PRN Shortness 07/04/22 10/15/22 History aerosol inhaler (Ventolin HFA) Of Breath Or Wheezing amiodarone 200 mg tablet 200 mg PO DAILY 07/04/22 10/15/22 History loratadine 10 mg tablet (Claritin) 10 mg PO DAILY 07/04/22 10/15/22 History aspirin 81 mg chewable tablet 81 mg PO DAILY 10/15/22 10/15/22 History furosemide 20 mg tablet (Lasix) 20 mg PO QAM 10/15/22 10/15/22 History glipizide 5 mg tablet 2.5 mg PO DAILY 10/15/22 10/15/22 History psyllium husk 0.52 gram capsule 0.52 g PO BID 10/15/22 10/15/22 History tacrolimus 0.1 % topical ointment 1 applic topical BID PRN FLARES OF 10/15/22 10/15/22 History PSORIASIS tamsulosin 0.4 mg capsule (Flomax) 0.4 mg PO DAILY 10/15/22 10/15/22 History warfarin 5 mg tablet See Rx Instructions .Route .COMPLEX 10/15/22 10/15/22 History Hospital Stay Data Consultations 10/15/22 16:48 ED Decision to Admit Stat 10/15/22 20:03 Consult Cardiology Routine Pending Results Patient Have Any Pending Studies at Discharge: No Discharge Instructions Given to Patient (Per Discharging Provider) Please refer to accompanying hospital discharge summary. Total Time Total Time Spent Total Time Spent (In Minutes): >30 minutes
[2022-10-16 15:24] VITALS: BP 123/84; TEMP 97.9; O2SAT 95
[2022-10-16 15:37] VITALS: PULSE 63
[2022-10-16] MEDS ORDERED: WARFARIN SOD 5 MG TAB PO SCH (16:00)
--- NOTE | 2022-10-16 18:51 | Electrocardiogram Report ---
Test Reason : Blood Pressure : / mmHG Vent. Rate : 070 BPM Atrial Rate : 070 BPM P-R Int : 274 ms QRS Dur : 178 ms QT Int : 468 ms P-R-T Axes : 070 -77 082 degrees QTc Int : 505 ms Atrial-paced rhythm with prolonged AV conduction Left axis deviation Right bundle branch block Left ventricular hypertrophy with repolarization abnormality Abnormal ECG When compared with ECG of 28-MAR-2022 04:21, No significant change was found Confirmed by True Stevens ([id number]) on 10/16/2022 6:50:38 PM Referred By: REFERRED SELF Confirmed By:Lloyd Stevens
--- NOTE | 2022-10-16 19:03 | Electrocardiogram Report ---
Test Reason : Blood Pressure : / mmHG Vent. Rate : 066 BPM Atrial Rate : 066 BPM P-R Int : 276 ms QRS Dur : 178 ms QT Int : 494 ms P-R-T Axes : 000 -75 089 degrees QTc Int : 517 ms Atrial-paced rhythm with prolonged AV conduction Left axis deviation Right bundle branch block Abnormal ECG When compared with ECG of 15-OCT-2022 13:26, (unconfirmed) No significant change was found Confirmed by True Stevens ([id number]) on 10/16/2022 7:03:12 PM Referred By: REFERRED SELF Confirmed By:Lloyd Stevens
[2022-10-17] MEDS ORDERED: WARFARIN SOD 7.5 MG TAB PO SCH (16:00)
== END 2022-10-16 18:50 | disposition short-term general hospital (02) | DRG 307 ==
LOC: ED 13:22 → 2E 16:53

== ENCOUNTER 2022-10-27 14:35 | Inpatient (IN) ==
[2022-10-27 15:29] LABS: Influenza A virus by PCR Negative (Neg); Influenza B virus by PCR Negative (Neg); RSV by PCR Negative (Neg); SARS CoV2 RNA(COVID-19) Ceph NEGATIVE (Negative)
--- NOTE | 2022-10-27 16:32 | XRay Report ---
XR chest 1V portable HISTORY: 81 years-old Male SOB acute shortness of breath COMPARISON: Chest radiograph October 15, 2022, chest CT 07/04/2022. TECHNIQUE: AP view of the chest FINDINGS: Cardiac silhouette is enlarged. Prior median sternotomy. Left subclavian pacer. Scattered solid pulmo nary nodules are redemonstrated. Mild emphysema with chronic scarring/atelectasis of the lung bases. Degenerative changes of the shoulders and spine. IMPRESSION: 1. Cardiomegaly without acute process of the chest. 2. Pulmonary metastasis redemonstrated. 3. Emphysema with chronic interstitial coarsening of the lung bases. ACT 112: Negative or not required by law. The above report was generated using voice recognition software. It may contain grammatical, syntax o r spelling errors. Electronically signed by: Layo Hooks M.D. 10/27/2022 4:31 PM
[2022-10-27 16:49] LABS: Basophils # (auto) 0.01 K/uL (0-0.2); Basophils % (auto) 0.2 %; Eosinophils # (auto) 0.01 K/uL (0-0.50); Eosinophils % (auto) 0.2 %; Hematocrit (blood only) 39.3 % (40.1-51.0); Hemoglobin 13.5 g/dl (14.0-18.0); Immature Granulocytes # (auto) 0.03 K/uL (0.00-0.02); Immature Granulocytes % (auto) 0.5 %; Lymphocytes # (auto) 0.77 K/uL (1.2-3.4); Lymphocytes % (auto) 13.8 %; Mean Corpuscular Hemoglobin 30.8 pg (25.0-34.0); Mean Corpuscular Hgb Conc 34.4 g/dL (32.0-36.0); Mean Corpuscular Volume 89.5 fL (80.0-100.0); Monocytes # (auto) 0.58 K/uL (0.24-0.82); Monocytes % (auto) 10.4 %; Neutrophils # (auto) 4.16 K/uL (1.4-6.5); Neutrophils % (auto) 74.9 %; Platelet Count 168 K/uL (130-400); RDW Coefficient of Variation 14.2 % (11.5-14.5); RDW Standard Deviation 46.5 fL (36.4-46.3); Red Blood Count 4.39 M/uL (4.63-6.08); White Blood Count 5.56 K/ul (4.8-10.8)
[2022-10-27 17:01] LABS: INR 1.3 (0.9-1.1); Partial Thromboplastin Ratio 1.4; Partial Thromboplastin Time 37.3 Seconds (21.0-31.0); Prothrombin Time 14.1 Seconds (9.0-12.0)
[2022-10-27 17:10] LABS: Alanine Aminotransferase 17 U/L (7-52); Albumin Globulin Ratio 1.3 (0.9-2); Alkaline Phosphatase 218 U/L (34-104); Anion Gap 11 (3-11); Aspartate Aminotransferase 20 U/L (13-39); BUN Creatinine Ratio 27.3 (10-20); Bilirubin,Total 0.6 mg/dl (0.2-1.0); Blood Urea Nitrogen 30 mg/dl (6-23); Calcium 9.4 mg/dl (8.5-10.1); Carbon Dioxide 26 mmol/L (21-32); Chloride 101 mmol/L (98-107); Est GFR (African American) 72.1 ml/min; Est GFR (Non-African American) 62.2 ml/min; Globulin 3.2 gm/dl (2.5-4.0); Glucose 195 mg/dl (70-99(Fasting)); Magnesium 2.1 mg/dl (1.7-2.4); Potassium 3.6 mmol/L (3.5-5.1); Sodium 138 mmol/L (136-145); Total Protein 7.2 gm/dl (6.0-8.3)
[2022-10-27 17:18] LABS: Troponin I High Sensitivity 98.2 pg/ml (0-20)
--- NOTE | 2022-10-27 18:16 | Emergency Department Note ---
Impression & Plan GILBERT (dyspnea on exertion), Elevated troponin I level, History of transcatheter aortic valve replacement (TAVR) ED Provider Note Provider: Sean Quiroz MD DATE OF SERVICE: 10/27/2022 CHIEF COMPLAINT: Shortness of breath, recent TAVR HISTORY OF PRESENT ILLNESS: Patient is a 81-year-old gentleman history of heart failure, CAD, type 2 diabetes, paroxysmal atrial fibrillation and DVT using Lo venox shots presenting here today reporting increasing shortness of breath. Worse particularly with movement. Seen here last week and transferred to [facility] with a TAVR placed on Sunday. Discharged the next day on Sunday and over the last 2 days had worsening shortness of breath. Having significant difficulty ambulating or getting around due to shortness of breath. No syncope or trauma reported. Denies significant chest pain. Reports some pain a bit of swelling of the left groin region today and some bruising here. Has been using Lovenox anticoagulation. Denies fever or chills. PAST MEDICAL HISTORY: As noted above MEDICATIONS: Reviewed home medications SOCIAL HISTORY: PHYSICAL EXAM: GENERAL: alert and oriented in no acute distress on stretcher Head: normocephalic and atraumatic EYES: No injection, discharge or icterus. NECK: Trachea midline. Supple. ENT: Mucous membranes pink and moist. LUNGS: Airway patent. No retractions. Breath sounds clear with some diminishment in the bases HEART: Regular rate and rhythm. No chest wall tenderness ABDOMEN: Soft and non-tender, without guarding or rebound. SKIN: Acyanotic, warm, dry, without rashes EXTREMITIES: Without swelling, tenderness or deformity except with bandaging to the right inguinal area without significant tenderness. There is bandaging over the left inguinal area with an area of ecchymosis surrounding here and some tenderness but no palpable pulsatile mass. Intact sensation distally in the left foot. Foot braces in place in the bilateral lower legs. NEUROLOGICAL: No focal deficits. No aphasia. No facial droop or slurred speech. Normal strength and tone in the extremities. Sensation to gross touch normal. Ambulatory. EK bpm atrially paced rhythm. No PVC or PAC. Right bundle branch block is noted with nonspecific anterior T wave changes. QTc 533. CONTINUOUS CARDIAC MONITORING: was ordered and showed a heart rate of 60s bpm in atrially paced rhythm Patient's laboratory studies and imaging reviewed. Differential includes pneumonia, pneumothorax, COPD, CHF, infections, cardiac ischemia, pulmonary embolism, musculoskeletal, vascular abnormalities, as well as other pathologies. IMPRESSION/MEDICAL DECISION MAKING: Patient recent TAVR. Since discharge increasing shortness of breath. No significant leg swelling. Not hypoxic at rest but dyspnea more on exertion. X- ray without significant finding. Given recent surgical procedure to complete a CT of the chest as well as given some swelling and contusion left inguinal region as compared to minimal to none on the right side to complete CTs through this area as well to exclude any significant bleeding. Some reassurance given that his hemoglobin appears stable without leukocytosis here. No significant electrolyte abnormality noted with stable renal function. Troponin is elevated today but difficult to evaluate in light of recent TAVR 2 days ago. Not hypoxic at rest but again is more functional. CT of the chest to exclude pericardial effusion or PE even in light of his anticoagulation will be completed. COVID and flu negative. Doubt this is infectious. CT scan report indicates no evidence of PE or pericardial effusion. Imaging report without aneurysm or bleeding in the femoral regions of vascaular access although again he has this contusion this area. Patient again states his symptoms are worse than before given this with his significant limitations and breathing issues will bring in for further evaluation. Hospitalist contacted. and patient in agreement. inquiring about TAVR team at [place] being informed of the patient's situation in the morning. DIAGNOSIS: Dyspnea on exertion, elevated troponin, History of TAVR DISPOSITION: Hospitalist will evaluate Patient was agreeable with this plan. Past Med/Surg History Medical History Aortic stenosis Asthma CAD (coronary artery disease) Status post PCI with a BMS to the mid LAD on 05/16/2016. 2.May 26, 2016 diagnostic cardiac catheterization at [facility], Dr. 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 Also, far beyond the stent, there was visible healed dissection flap, Type B, non- obstructive. 3.Status post CABG x 1 with a ABRAMS to LAD for persistent angina, May 2016. 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 Surgical History H/O esophagogastroduodenoscopy Hx of total knee arthroplasty S/P CABG x 1 S/P cholecystectomy S/P hip replacement S/P knee replacement Family History Other Diabetes Heart disease Social History Smoking Status: Former smoker Tobacco Type: Cigarettes Cigarettes Per Day: 40; Second Hand Exposure: No; Hx Alcohol Use: No Hx Substance Use: No Preferred Language: Albanian Communication Ability: Effective Visual Impairment: No Limitations Hearing Ability: Normal Flight Instructor Required: No Beliefs That Will Affect Care: None marital status: Current Living Situation: Spouse Current Living Situation Comment: Home with Feels Safe at Home: Yes Assistive Devices: Glasses and Hearing Aid - Bilateral Allergies Allergies Allergy/AdvReac Type Severity Reaction Status Date / Time No Known Allergies Allergy Verified 10/15/22 16:38 Home Meds Home Medications Medication Instructions Recorded Confirmed glucosamine sulf dipot 1 cap PO BID 02/21/19 10/15/22 chlr,msm,chond 550 mg-C 30 mg-erum 1 mg capsule (Glucosamine Chondroitin) nitroglycerin 0.4 mg sublingual 0.4 mg sublingual DIRECTED PRN 02/21/19 10/15/22 tablet (Nitrostat) Chest Pain omeprazole 20 mg capsule,delayed 20 mg PO BID 02/21/19 10/15/22 release potassium chloride 10 mEq 10 meq PO DAILY 02/21/19 10/15/22 tablet,extended release(part/cryst) (Klor-Con M) cholecalciferol (vitamin D3) 25 1,000 mcg PO DAILY 01/08/21 10/15/22 mcg (1,000 unit) tablet metoprolol succinate 50 mg 50 mg PO AMPM 06/13/21 10/15/22 tablet,extended release 24 hr vit C 250 mg-vit E 90 mg-zinc 40 2 tab PO DAILY 10/16/21 10/15/22 mg-copper 1 [id number] capsule (PreserVision AREDS-2) abiraterone 250 mg tablet 1,000 mg PO DAILYBB 03/17/22 10/15/22 famotidine 20 mg tablet (Pepcid) 20 mg PO BID 03/17/22 10/15/22 fluticasone propionate 50 2 spray intranasal BID 03/17/22 10/15/22 mcg/actuation nasal spray,suspension prednisone 5 mg tablet 5 mg PO BID 03/17/22 10/15/22 acetaminophen 325 mg tablet 650 - 975 mg PO DAILY PRN 03/28/22 10/15/22 (Tylenol) PAIN/FEVER ascorbic acid (vitamin C) 500 mg 1,000 mg PO DAILY 03/28/22 10/15/22 tablet (Vitamin C) hydrocortisone 2.5 % topical cream 1 applic topical DAILY PRN 03/28/22 10/15/22 UNDERARMS FOR FLARE UPS albuterol sulfate 90 mcg/actuation 1 inh inhalation Q6H PRN Shortness 07/04/22 10/15/22 aerosol inhaler (Ventolin HFA) Of Breath Or Wheezing amiodarone 200 mg tablet 200 mg PO DAILY 07/04/22 10/15/22 loratadine 10 mg tablet (Claritin) 10 mg PO DAILY 07/04/22 10/15/22 aspirin 81 mg chewable tablet 81 mg PO DAILY 10/15/22 10/15/22 furosemide 20 mg tablet (Lasix) 20 mg PO QAM 10/15/22 10/15/22 glipizide 5 mg tablet 2.5 mg PO DAILY 10/15/22 10/15/22 psyllium husk 0.52 gram capsule 0.52 g PO BID 10/15/22 10/15/22 tacrolimus 0.1 % topical ointment 1 applic topical BID PRN FLARES OF 10/15/22 10/15/22 PSORIASIS tamsulosin 0.4 mg capsule (Flomax) 0.4 mg PO DAILY 10/15/22 10/15/22 warfarin 5 mg tablet See Rx Instructions .Route .COMPLEX 10/15/22 10/15/22 Results & Data (ED) Vital Signs Vital Signs - 24 hr 10/27/22 14:37 10/27/22 17:00 10/27/22 17:00 Temperature 36.4 C L Temperature Source Temporal Artery Scan Pulse Rate 64 Pulse Rate [Apical] 69 Pulse Rhythm [Apical] Regular Respiratory Rate 16 16 Respiratory Effort / Characteristics Non-Labored Spontaneous Non-Labored Respiratory Depth Normal Normal Respiratory Pattern Regular Blood Pressure 141/71 H Blood Pressure [Right Arm] 173/104 H Blood Pressure Mean 94 Blood Pressure Mean [Right Arm] 127 Blood Pressure Position Sitting Pulse Oximetry 98 97 97 Oxygen Delivery Method Nasal Cannula Room Air Room Air Oxygen Flow Rate 2 Sepsis Recent Fever Within 48 Hours No Sepsis New/Unexplained Change in Mental Status No Sepsis Action Taken by Nursing No Action Required 10/27/22 17:00 10/27/22 17:00 Temperature Temperature Source Pulse Rate Pulse Rate [Apical] Pulse Rhythm [Apical] Respiratory Rate Respiratory Effort / Characteristics Non-Labored Respiratory Depth Respiratory Pattern Blood Pressure Blood Pressure [Right Arm] Blood Pressure Mean Blood Pressure Mean [Right Arm] Blood Pressure Position Pulse Oximetry 97 Oxygen Delivery Method Room Air Oxygen Flow Rate Sepsis Recent Fever Within 48 Hours Sepsis New/Unexplained Change in Mental Status Sepsis Action Taken by Nursing Laboratory Data 10/27/22 16:30 10/27/22 16:30 Lab Results 10/27/22 10/27/22 10/27/22 Range/Units 16:30 16:30 16:30 WBC 5.56 (4.8-10.8) K/ul RBC 4.39 L (4.63-6.08) M/uL Hgb 13.5 L (14.0-18.0) g/dl Hct 39.3 L (40.1-51.0) % MCV 89.5 (80.0-100.0) fL MCH 30.8 (25.0-34.0) pg MCHC 34.4 (32.0-36.0) g/dL RDW Std Deviation 46.5 H (36.4-46.3) fL RDW Coeff of Bradly 14.2 (11.5-14.5) % Plt Count 168 (130-400) K/uL MPV 9.0 L (9.4-12.4) fL Immature Gran % (Auto) 0.5 % Neut % (Auto) 74.9 % Lymph % (Auto) 13.8 % Irion % (Auto) 10.4 % Eos % (Auto) 0.2 % Baso % (Auto) 0.2 % Neut # (Auto) 4.16 (1.4-6.5) K/uL Lymph # (Auto) 0.77 L (1.2-3.4) K/uL Irion # (Auto) 0.58 (0.24-0.82) K/uL Eos # (Auto) 0.01 (0-0.50) K/uL Baso # (Auto) 0.01 (0-0.2) K/uL Immature Gran # (Auto) 0.03 H (0.00-0.02) K/uL PT 14.1 H (9.0-12.0) Seconds INR 1.3 H (0.9-1.1) APTT 37.3 H (21.0-31.0) Seconds PTT Ratio 1.4 Sodium 138 (136-145) mmol/L Potassium 3.6 (3.5-5.1) mmol/L Chloride 101 (98-107) mmol/L Carbon Dioxide 26 (21-32) mmol/L Anion Gap 11 (3-11) BUN 30 H (6-23) mg/dl Creatinine 1.10 (0.6-1.4) mg/dl Est Cr Clr Drug Dosing Not Reportable Est GFR ( Amer) 72.1 ml/min Est GFR (Non-Af Amer) 62.2 ml/min BUN/Creatinine Ratio 27.3 H (10-20) Glucose 195 H (70-99(Fasting)) mg/dl Calcium 9.4 (8.5-10.1) mg/dl Magnesium 2.1 (1.7-2.4) mg/dl Total Bilirubin 0.6 (0.2-1.0) mg/dl AST 20 (13-39) U/L ALT 17 (7-52) U/L Alkaline Phosphatase 218 H (34-104) U/L Troponin I High Sens 98.2 H* (0-20) pg/ml Total Protein 7.2 (6.0-8.3) gm/dl Albumin 4.0 (3.4-5.0) gm/dl Globulin 3.2 (2.5-4.0) gm/dl Albumin/Globulin Ratio 1.3 (0.9-2) SARS-CoV-2 (PCR) (Negative) Influenza Type A (PCR) (Neg) Influenza Type B (PCR) (Neg) RSV (RT-PCR) (Neg) 10/27/22 Range/Units Unknown WBC (4.8-10.8) K/ul RBC (4.63-6.08) M/uL Hgb (14.0-18.0) g/dl Hct (40.1-51.0) % MCV (80.0-100.0) fL MCH (25.0-34.0) pg MCHC (32.0-36.0) g/dL RDW Std Deviation (36.4-46.3) fL RDW Coeff of Bradly (11.5-14.5) % Plt Count (130-400) K/uL MPV (9.4-12.4) fL Immature Gran % (Auto) % Neut % (Auto) % Lymph % (Auto) % Irion % (Auto) % Eos % (Auto) % Baso % (Auto) % Neut # (Auto) (1.4-6.5) K/uL Lymph # (Auto) (1.2-3.4) K/uL Irion # (Auto) (0.24-0.82) K/uL Eos # (Auto) (0-0.50) K/uL Baso # (Auto) (0-0.2) K/uL Immature Gran # (Auto) (0.00-0.02) K/uL PT (9.0-12.0) Seconds INR (0.9-1.1) APTT (21.0-31.0) Seconds PTT Ratio Sodium (136-145) mmol/L Potassium (3.5-5.1) mmol/L Chloride (98-107) mmol/L Carbon Dioxide (21-32) mmol/L Anion Gap (3-11) BUN (6-23) mg/dl Creatinine (0.6-1.4) mg/dl Est Cr Clr Drug Dosing Est GFR ( Amer) ml/min Est GFR (Non-Af Amer) ml/min BUN/Creatinine Ratio (10-20) Glucose (70-99(Fasting)) mg/dl Calcium (8.5-10.1) mg/dl Magnesium (1.7-2.4) mg/dl Total Bilirubin (0.2-1.0) mg/dl AST (13-39) U/L ALT (7-52) U/L Alkaline Phosphatase (34-104) U/L Troponin I High Sens (0-20) pg/ml Total Protein (6.0-8.3) gm/dl Albumin (3.4-5.0) gm/dl Globulin (2.5-4.0) gm/dl Albumin/Globulin Ratio (0.9-2) SARS-CoV-2 (PCR) NEGATIVE (Negative) Influenza Type A (PCR) Negative (Neg) Influenza Type B (PCR) Negative (Neg) RSV (RT-PCR) Negative (Neg) Administered Medications Discontinued Medications Ioversol (Optiray 320 500ml) 113 ml IV ONCE ONE Stop: 10/27/22 19:10 Last Admin: 10/27/22 19:11 Dose: 113 ml Documented By: KARISSA Imaging Data Radiologist's Impression: Chest X-Ray 10/27/22 14:36 XR chest 1V portable HISTORY: 81 years-old Male SOB acute shortness of breath COMPARISON: Chest radiograph October 15, 2022, chest CT 07/04/2022. TECHNIQUE: AP view of the chest FINDINGS: Cardiac silhouette is enlarged. Prior median sternotomy. Left subclavian pacer. Scattered solid pulmonary nodules are redemonstrated. Mild emphysema with chronic scarring/atelectasis of the lung bases. Degenerative changes of the shoulders and spine. IMPRESSION: 1. Cardiomegaly without acute process of the chest. 2. Pulmonary metastasis redemonstrated. 3. Emphysema with chronic interstitial coarsening of the lung bases. ACT 112: Negative or not required by law. The above report was generated using voice recognition software. It may contain grammatical, syntax or spelling errors. Electronically signed by: Layo Hooks M.D. 10/27/2022 4:31 PM Discharge Plan Visit Data Chief Complaint: Shortness of Breath/Dyspnea Stated Complaint: SOB ED Provider: Sean Quiroz Discharge Problem: GILBERT (dyspnea on exertion), Elevated troponin I level, History of transcatheter aortic valve replacement (TAVR) Patient Disposition: Being Evaluated by Hospitalist Forms Stand Alone Forms: My [facility] Prescriptions Prescriptions: No Action omeprazole 20 mg capsule,delayed release(DR/EC) 20 mg PO BID potassium chloride [Klor-Con M10] 10 mEq tablet,ER particles/crystals 10 meq PO DAILY Glucosamine Chondroitin 550-30-1 mg Capsule 1 cap PO BID nitroglycerin [Nitrostat] 0.4 mg Tablet, Sublingual 0.4 mg sublingual DIRECTED PRN (Reason: Chest Pain) Rx Instructions: NEEDED FOR CHEST PAIN : ONE TABLET UNDER THE TONGUE EVERY 5 MINUTES UP TO 3 DOSES. cholecalciferol (vitamin D3) 25 mcg (1,000 unit) Tablet 1,000 mcg PO DAILY metoprolol succinate 50 mg tablet extended release 24 hr 50 mg PO AMPM amiodarone 200 mg tablet 200 mg PO DAILY loratadine [Claritin] 10 mg Tablet 10 mg PO DAILY albuterol sulfate [Ventolin HFA] 90 mcg/actuation Hfa Aerosol Inhaler 1 inh INHALATION Q6H PRN (Reason: Shortness Of Breath Or Wheezing) PreserVision AREDS-2 250-90-40-1 mg Capsule 2 tab PO DAILY prednisone 5 mg tablet 5 mg PO BID fluticasone propionate 50 mcg/actuation spray,suspension 2 spray INTRANASAL BID abiraterone 250 mg tablet 1,000 mg PO DAILYBB Rx Instructions: TAKE FOUR TABLETS IN THE AM ON AN EMPTY STOMACH ( ONE HOUR BEFORE OR TWO HOURS AFTER FOOD). famotidine [Pepcid] 20 mg tablet 20 mg PO BID acetaminophen [Tylenol] 325 mg Tablet 650 - 975 mg PO DAILY PRN (Reason: PAIN/FEVER) ascorbic acid (vitamin C) [Vitamin C] 500 mg Tablet 1,000 mg PO DAILY hydrocortisone 2.5 % Cream 1 applic TOPICAL DAILY PRN (Reason: UNDERARMS FOR FLARE UPS) tamsulosin [Flomax] 0.4 mg Capsule 0.4 mg PO DAILY tacrolimus 0.1 % Ointment 1 applic TOPICAL BID PRN (Reason: FLARES OF PSORIASIS) warfarin 5 mg tablet See Rx Instructions .ROUTE .COMPLEX Rx Instructions: TAKES QPM. TAKE DIRECTED FROM [facility] aspirin 81 mg Tablet,Chewable 81 mg PO DAILY furosemide [Lasix] 20 mg Tablet 20 mg PO QAM glipizide 5 mg Tablet 2.5 mg PO DAILY psyllium husk 0.52 gram Capsule 0.52 g PO BID Referrals Referrals: Jones Estrada MD [Primary Care Provider] -
[2022-10-27] MEDS ORDERED: OPTIRAY 320 500ml IV ONE (19:09)
--- NOTE | 2022-10-27 20:39 | CT Scan Report ---
CT angio chest PE protocol, CT angio abdomen pelvis w con CT DOSE: 1170.51 mGy.cm HISTORY: 81 years-old Male with PE, sob recent TAVR. Acute shortness of breath patient with known m etastatic disease TECHNIQUE: Multiple CTA images of the chest, abdomen and pelvis were obtained after the intravenous a dministration of 113 ml Optiray. Coronal and sagittal MIPS were obtained from the axial data set and were submitted for review. All measurements were obtained according to NASCET criteria. A dose lowe ring technique was utilized adhering to the principles of ALARA. COMPARISON: Chest, abdomen and pelvis 07/04/2022. FINDINGS: CTA CHEST: Mild cardiomegaly with prior median sternotomy and prosthetic aortic valve. Left subclavian pacer. Th inning of the left ventricular apex with 1.6 cm apical saccular outpouching redemonstrated. Mural fib rofatty changes of the apical and septal tony compatible with prior infarct. No thoracic aortic aneu rysm or dissection identified. Moderate coronary artery calcifications. No pulmonary emboli are ident ified. CT CHEST: Multinodular thyroid. Pathologic lymphadenopathy redemonstrated. Paratracheal lymphadenopathy measuri ng up to 4.0 x 2.7 cm on image 109 series 6 previously measured approximately 2.6 x 2.5 cm when measu red in a similar fashion on the prior exam. Conglomerate left hilar lymphadenopathy and image 1:30 me asuring 3.7 x 2.0 cm previously measured 3.2 x 1.8 cm on the prior exam. No pneumothorax, pleural effusion or overt pulmonary edema. Multifocal pulmonary metastasis redemonst rated. Index 2.3 cm subpleural nodule of the right lung base on image 189, previously 2.0 cm. 1.8 cm subpleural nodule of the inferior segment lingula, previously 1.7 cm. 1.1 cm subpleural solid nodule of the left lower lobe on image 29 previously measured 8 mm. Central airways are patent. Unremarkable soft tissues. Mild gynecomastia. Degenerative changes of the shoulders and spine. With central metas tatic lesion of the T10 vertebral body has increased in size with interval pathologic fracture of the inferior endplate. No significant vertebral body height loss. Heterogeneous ill-defined sclerotic fo ci within several thoracic vertebral bodies appears stable. There is a new lucent focus of the sterna l manubrium on image 51. CTA ABDOMEN/PELVIS: Moderate atherosclerosis. No abdominal aortic aneurysm or dissection. Patency of the iliac and imaged femoral arteries. The celiac trunk, superior and inferior mesenteric arteries as well as the bilater al renal arteries are patent. No aneurysm, dissection, high-grade stenosis, pseudoaneurysm or arteria l occlusion identified. CT ABDOMEN/PELVIS: No pneumatosis or pneumoperitoneum. Unremarkable spleen, mildly atrophic pancreas and adrenal glands. Cholecystectomy. 6.2 cm heterogeneous mass of the left hepatic lobe with areas of apparent enhanceme nt and necrosis appears stable from prior.This mass extends to the liver capsule and exhibits areas o f central macroscopic fat attenuation. Indeterminate 1.3 cm hypodense structure adjacent to the infer ior right hepatic lobe on image 138 appears stable. Unremarkable appearance of the kidneys. No hydronephrosis. Brachy therapy seeds of the prostate. Part ial distention of the urinary bladder with mild wall thickening. Indeterminate nodular foci within th e subcutaneous left inguinal distribution is nonspecific and may represent veins or lymph nodes. No p athologically enlarged lymph nodes are identified. Injection granulomata of the anterior subcutaneous abdominal wall. Tiny hiatal hernia. No bowel obstruction or bowel wall thickening. Colonic diverticu losis without acute diverticulitis. Normal appendix. Right hip total joint arthroplasty. Ill-defined sclerotic focus of the S1 segment redemonstrated. Progressive sclerosis of the L3 and L4 vertebral shelby dies. IMPRESSION: 1. Unremarkable CTA component of the study. No pulmonary emboli identified. 2. No acute intrathoracic, intra-abdominal or intrapelvic abnormality identified. 3. Mildly progressive metastatic disease with increased size of the pulmonary metastasis, increased s ize of the metastatic thoracic lymphadenopathy with progressive osseous metastasis. There is acute ap pearing pathologic fracturing involving the inferior T10 endplate without significant vertebral body height loss which is new from 07/04/2022. The previously described lesion at T10 has mildly increased in size. 4. Stable size of the heterogeneous left hepatic lobe mass which may represent hepatic metastasis oniel leobardo a primary hepatic malignancy. 5. Additional findings as above. ACT 112: Negative or not required by law. The above report was generated using voice recognition software. It may contain grammatical, syntax o r spelling errors. Electronically signed by: Layo Hooks M.D. 10/27/2022 8:37 PM
--- NOTE | 2022-10-27 21:05 | History & Physical Report ---
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 Thompson. See addendum History of Present Illness Chief Complaint: SOB Primary Care Provider: Jones Estrada MD Patient is 81-year-old male with PMH CAD with history of stent to mid LAD 05/2016 with eventual CABG ABRAMS to LAD in 2015, chronic HFrEF, PAF anticoagulated on warfarin, tachybradycardia syndrome s/p pacemaker, HTN, HLD, AL on CPAP, moderate aortic stenosis, metastatic prostate cancer currently receiving treatment, history of PE/DVT presented to ER with complaint of increased shortness of breath with exertion x 2 days. History obtained from patient, and inpatient and outpatient chart review. Prior records reviewed. Recent hospitalization at [facility] 10/15/2022-10/16/2022 for CP, SOB. 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 Cardiology had recommended transfer to [facility] for possible aortic valve surgery. Transferred to [facility] on 10/16/22-10/25/22. At [facility] had TAVR on 10/24/2021 with placement of Ornelas Rosaline valve. He is currently on Lovenox bridge to warfarin. Zytiga was held while he was inpatient. Was started on Flagyl for possible colitis with last day of course on 10/31/2022. Patient feels diarrhea has improved. He states he had exertional SOB prior to TAVR but feels it is worse since his hospital discharge. Reports some discomfort bilateral groin at incision sites but denies any noted purulent drainage or bleeding. Denies fever/chills, diaphoresis, N/V, BELL, dizziness, syncope, vision changes, neck pain, CP, orthopnea, palpitations, cough, hemoptysis, sore throat, choking, otalgia, rhinorrhea, abdominal pain, paresthesias, weakness, extremity weakness, extremity edema, rashes, urinary symptoms. Allergies Allergy/AdvReac Type Severity Reaction Status Date / Time No Known Allergies Allergy Verified 10/27/22 21:07 Home Medications Medication Instructions Recorded Confirmed Type glucosamine sulf dipot 1 cap PO BID 02/21/19 10/27/22 History chlr,msm,chond 550 mg-C 30 mg-erum 1 mg capsule (Glucosamine Chondroitin) nitroglycerin 0.4 mg sublingual 0.4 mg sublingual DIRECTED PRN 02/21/19 10/27/22 History tablet (Nitrostat) Chest Pain omeprazole 20 mg capsule,delayed 20 mg PO BID 02/21/19 10/27/22 History release potassium chloride 10 mEq 10 meq PO DAILY 02/21/19 10/27/22 History tablet,extended release(part/cryst) (Klor-Con M) cholecalciferol (vitamin D3) 25 1,000 mcg PO DAILY 01/08/21 10/27/22 History mcg (1,000 unit) tablet metoprolol succinate 50 mg 50 mg PO AMPM 06/13/21 10/27/22 History tablet,extended release 24 hr vit C 250 mg-vit E 90 mg-zinc 40 2 tab PO DAILY 10/16/21 10/27/22 History mg-copper 1 [id number] capsule (PreserVision AREDS-2) famotidine 20 mg tablet (Pepcid) 20 mg PO BID 03/17/22 10/27/22 History prednisone 5 mg tablet 5 mg PO BID 03/17/22 10/27/22 History acetaminophen 325 mg tablet 650 - 975 mg PO DAILY PRN 03/28/22 10/27/22 History (Tylenol) PAIN/FEVER ascorbic acid (vitamin C) 500 mg 1,000 mg PO DAILY 03/28/22 10/27/22 History tablet (Vitamin C) hydrocortisone 2.5 % topical cream 1 applic topical DAILY PRN 03/28/22 10/27/22 History UNDERARMS FOR FLARE UPS albuterol sulfate 90 mcg/actuation 1 inh inhalation Q6H PRN Shortness 07/04/22 10/27/22 History aerosol inhaler (Ventolin HFA) Of Breath Or Wheezing amiodarone 200 mg tablet 200 mg PO DAILY 07/04/22 10/27/22 History loratadine 10 mg tablet (Claritin) 10 mg PO DAILY 07/04/22 10/27/22 History aspirin 81 mg chewable tablet 81 mg PO DAILY 10/15/22 10/27/22 History furosemide 20 mg tablet (Lasix) 20 mg PO QAM 10/15/22 10/27/22 History glipizide 5 mg tablet 2.5 mg PO DAILY 10/15/22 10/27/22 History tacrolimus 0.1 % topical ointment 1 applic topical BID PRN FLARES OF 10/15/22 10/27/22 History PSORIASIS tamsulosin 0.4 mg capsule (Flomax) 0.4 mg PO DAILY 10/15/22 10/27/22 History warfarin 5 mg tablet See Rx Instructions .Route .COMPLEX 10/15/22 10/27/22 History albuterol sulfate 5 mg/mL(0.5 %) 2.5 mg inhalation DIRECTED PRN 10/27/22 10/27/22 History solution for nebulization Shortness Of Breath atorvastatin 40 mg tablet (Lipitor) 40 mg PO PM 10/27/22 10/27/22 History enoxaparin 100 mg/mL subcutaneous 100 mg subcut Q12H 10/27/22 10/27/22 History syringe (Lovenox) metronidazole 500 mg tablet 500 mg PO TID 10/27/22 10/27/22 History Past Med/Surg History Medical History Aortic stenosis Asthma Atrial fibrillation with RVR CAD (coronary artery disease) Status post PCI with a BMS to the mid LAD on 05/16/2016. 2.May 26, 2016 diagnostic cardiac catheterization at [facility] Dr. 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 Also, far beyond the stent, there was visible healed dissection flap, Type B, non- obstructive. 3.Status post CABG x 1 with a ABRAMS to LAD for persistent angina, May 2016. 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 Surgical History H/O esophagogastroduodenoscopy Hx of total knee arthroplasty S/P CABG x 1 S/P cholecystectomy S/P hip replacement S/P knee replacement Family History Other Diabetes Heart disease Social History Smoking Status: Former smoker Tobacco Type: Cigarettes Cigarettes Per Day: 40; Second Hand Exposure: No; Hx Alcohol Use: No Hx Substance Use: No Preferred Language: Mongolian Communication Ability: Effective Visual Impairment: No Limitations Hearing Ability: Normal Supervisor Paper Products Required: No Beliefs That Will Affect Care: None marital status: Current Living Situation: Spouse Current Living Situation Comment: Home with Feels Safe at Home: Yes Safety Concerns: Feels Safe At This Time Assistive Devices: Glasses, Hearing Aid - Bilateral and Special Shoe Review of Systems Review of Systems: All systems reviewed & are unremarkable except as noted in HPI & below Physical Exam Physical Exam: General: no distress, obese Head: normocephalic, atraumatic Eyes: conjunctiva non-injected, anicteric ENT: normal inspection external ears, nose, mucous membranes moist Neck: supple, trachea midline Lungs: clear, no respiratory distress, no wheezing/rhonchi/rales CV: RRR, + murmur, no pretibial edema Abd: normal BS, soft, non-tender, ecchymosis bilateral groin Ext: no cyanosis, no calf tenderness Neuro: A&O x 3, no focal deficits noted, normal affect Skin: warm, dry Results & Data Results & Data ([facility]) Vital Signs (Past 12 Hours) Vital Signs Temp Pulse Pulse Resp BP BP Pulse Ox 10/27/22 19:48 16 149/71 H 90 10/27/22 17:00 97 10/27/22 17:00 69 16 173/104 H 97 10/27/22 17:00 97 10/27/22 14:37 36.4 C L 64 16 141/71 H 98 O2 Del Method O2 Flow Rate 10/27/22 19:48 Room Air 10/27/22 17:00 Room Air 10/27/22 17:00 Room Air 10/27/22 17:00 Room Air 10/27/22 14:37 Nasal Cannula 2 Laboratory Results Short CBC 10/27/22 Range/Units 16:30 WBC 5.56 (4.8-10.8) K/ul Hgb 13.5 L (14.0-18.0) g/dl Hct 39.3 L (40.1-51.0) % Plt Count 168 (130-400) K/uL BMP 10/27/22 16:30 Sodium 138 Potassium 3.6 Chloride 101 Carbon Dioxide 26 BUN 30 H Creatinine 1.10 Glucose 195 H Calcium 9.4 Liver Function 10/27/22 Range/Units 16:30 Total Bilirubin 0.6 (0.2-1.0) mg/dl AST 20 (13-39) U/L ALT 17 (7-52) U/L Alkaline Phosphatase 218 H (34-104) U/L Albumin 4.0 (3.4-5.0) gm/dl Diagnostic Findings Chest X-Ray 10/27/22 14:36 XR chest 1V portable HISTORY: 81 years-old Male SOB acute shortness of breath COMPARISON: Chest radiograph October 15, 2022, chest CT 07/04/2022. TECHNIQUE: AP view of the chest FINDINGS: Cardiac silhouette is enlarged. Prior median sternotomy. Left subclavian pacer. Scattered solid pulmonary nodules are redemonstrated. Mild emphysema with chronic scarring/atelectasis of the lung bases. Degenerative changes of the shoulders and spine. IMPRESSION: 1. Cardiomegaly without acute process of the chest. 2. Pulmonary metastasis redemonstrated. 3. Emphysema with chronic interstitial coarsening of the lung bases. ACT 112: Negative or not required by law. The above report was generated using voice recognition software. It may contain grammatical, syntax or spelling errors. Electronically signed by: Layo Hooks M.D. 10/27/2022 4:31 PM Abdomen/Pelvis CTA 10/27/22 17:44 CT angio chest PE protocol, CT angio abdomen pelvis w con CT DOSE: 1170.51 mGy.cm HISTORY: 81 years-old Male with PE, sob recent TAVR. Acute shortness of breath patient with known metastatic disease TECHNIQUE: Multiple CTA images of the chest, abdomen and pelvis were obtained after the intravenous administration of 113 ml Optiray. Coronal and sagittal MIPS were obtained from the axial data set and were submitted for review. All measurements were obtained according to NASCET criteria. A dose lowering technique was utilized adhering to the principles of ALARA. COMPARISON: Chest, abdomen and pelvis 07/04/2022. FINDINGS: CTA CHEST: Mild cardiomegaly with prior median sternotomy and prosthetic aortic valve. Left subclavian pacer. Thinning of the left ventricular apex with 1.6 cm apical saccular outpouching redemonstrated. Mural fibrofatty changes of the apical and septal tony compatible with prior infarct. No thoracic aortic aneurysm or dissection identified. Moderate coronary artery calcifications. No pulmonary emboli are identified. CT CHEST: Multinodular thyroid. Pathologic lymphadenopathy redemonstrated. Paratracheal lymphadenopathy measuring up to 4.0 x 2.7 cm on image 109 series 6 previously measured approximately 2.6 x 2.5 cm when measured in a similar fashion on the prior exam. Conglomerate left hilar lymphadenopathy and image 1:30 measuring 3.7 x 2.0 cm previously measured 3.2 x 1.8 cm on the prior exam. No pneumothorax, pleural effusion or overt pulmonary edema. Multifocal pulmonary metastasis redemonstrated. Index 2.3 cm subpleural nodule of the right lung base on image 189, previously 2.0 cm. 1.8 cm subpleural nodule of the inferior segment lingula, previously 1.7 cm. 1.1 cm subpleural solid nodule of the left lower lobe on image 29 previously measured 8 mm. Central airways are patent. Unremarkable soft tissues. Mild gynecomastia. Degenerative changes of the shoulders and spine. With central metastatic lesion of the T10 vertebral body has increased in size with interval pathologic fracture of the inferior endplate. No significant vertebral body height loss. Heterogeneous ill-defined sclerotic foci within several thoracic vertebral bodies appears stable. There is a new lucent focus of the sternal manubrium on image 51. CTA ABDOMEN/PELVIS: Moderate atherosclerosis. No abdominal aortic aneurysm or dissection. Patency of the iliac and imaged femoral arteries. The celiac trunk, superior and inferior mesenteric arteries as well as the bilateral renal arteries are patent. No aneurysm, dissection, high-grade stenosis, pseudoaneurysm or arterial occlusion identified. CT ABDOMEN/PELVIS: No pneumatosis or pneumoperitoneum. Unremarkable spleen, mildly atrophic pancreas and adrenal glands. Cholecystectomy. 6.2 cm heterogeneous mass of the left hepatic lobe with areas of apparent enhancement and necrosis appears stable from prior.This mass extends to the liver capsule and exhibits areas of central macroscopic fat attenuation. Indeterminate 1.3 cm hypodense structure adjacent to the inferior right hepatic lobe on image 138 appears stable. Unremarkable appearance of the kidneys. No hydronephrosis. Brachy therapy seeds of the prostate. Partial distention of the urinary bladder with mild wall thickening. Indeterminate nodular foci within the subcutaneous left inguinal distribution is nonspecific and may represent veins or lymph nodes. No pathologically enlarged lymph nodes are identified. Injection granulomata of the anterior subcutaneous abdominal wall. Tiny hiatal hernia. No bowel obstruction or bowel wall thickening. Colonic diverticulosis without acute diverticulitis. Normal appendix. Right hip total joint arthroplasty. Ill-defined sclerotic focus of the S1 segment redemonstrated. Progressive sclerosis of the L3 and L4 vertebral bodies. IMPRESSION: 1. Unremarkable CTA component of the study. No pulmonary emboli identified. 2. No acute intrathoracic, intra-abdominal or intrapelvic abnormality id entified. 3. Mildly progressive metastatic disease with increased size of the pulmonary metastasis, increased size of the metastatic thoracic lymphadenopathy with progressive osseous metastasis. There is acute appearing pathologic fracturing involving the inferior T10 endplate without significant vertebral body height loss which is new from 07/04/2022. The previously described lesion at T10 has m ildly increased in size. 4. Stable size of the heterogeneous left hepatic lobe mass which may represent hepatic metastasis versus a primary hepatic malignancy. 5. Additional findings as above. ACT 112: Negative or not required by law. The above report was generated using voice recognition software. It may contain grammatical, syntax or spelling errors. Electronically signed by: Layo Hooks M.D. 10/27/2022 8:37 PM Chest CTA 10/27/22 17:44 CT angio chest PE protocol, CT angio abdomen pelvis w con CT DOSE: 1170.51 mGy.cm HISTORY: 81 years-old Male with PE, sob recent TAVR. Acute shortness of breath patient with known metastatic disease TECHNIQUE: Multiple CTA images of the chest, abdomen and pelvis were obtained after the intravenous administration of 113 ml Optiray. Coronal and sagittal MIPS were obtained from the axial data set and were submitted for review. All measurements were obtained according to NASCET criteria. A dose lowering technique was utilized adhering to the principles of ALARA. COMPARISON: Chest, abdomen and pelvis 07/04/2022. FINDINGS: CTA CHEST: Mild cardiomegaly with prior median sternotomy and prosthetic aortic valve. Left subclavian pacer. Thinning of the left ventricular apex with 1.6 cm apical saccular outpouching redemonstrated. Mural fibrofatty changes of the apical and septal tony compatible with prior infarct. No thoracic aortic aneurysm or dissection identified. Moderate coronary artery calcifications. No pulmonary emboli are identified. CT CHEST: Multinodular thyroid. Pathologic lymphadenopathy redemonstrated. Paratracheal lymphadenopathy measuring up to 4.0 x 2.7 cm on image 109 series 6 previously measured approximately 2.6 x 2.5 cm when measured in a similar fashion on the prior exam. Conglomerate left hilar lymphadenopathy and image 1:30 measuring 3.7 x 2.0 cm previously measured 3.2 x 1.8 cm on the prior exam. No pneumothorax, pleural effusion or overt pulmonary edema. Multifocal pulmonary metastasis redemonstrated. Index 2.3 cm subpleural nodule of the right lung base on image 189, previously 2.0 cm. 1.8 cm subpleural nodule of the inferior segment lingula, previously 1.7 cm. 1.1 cm subpleural solid nodule of the left lower lobe on image 29 previously measured 8 mm. Central airways are patent. Unremarkable soft tissues. Mild gynecomastia. Degenerative changes of the shoulders and spine. With central metastatic lesion of the T10 vertebral body has increased in size with interval pathologic fracture of the inferior endplate. No significant vertebral body height loss. Heterogeneous ill-defined sclerotic foci within several thoracic vertebral bodies appears stable. There is a new lucent focus of the sternal manubrium on image 51. CTA ABDOMEN/PELVIS: Moderate atherosclerosis. No abdominal aortic aneurysm or dissection. Patency of the iliac and imaged femoral arteries. The celiac trunk, superior and inferior mesenteric arteries as well as the bilateral renal arteries are patent. No aneurysm, dissection, high-grade stenosis, pseudoaneurysm or arterial occlusion identified. CT ABDOMEN/PELVIS: No pneumatosis or pneumoperitoneum. Unremarkable spleen, mildly atrophic pancreas and adrenal glands. Cholecystectomy. 6.2 cm heterogeneous mass of the left hepatic lobe with areas of apparent enhancement and necrosis appears stable from prior.This mass extends to the liver capsule and exhibits areas of central macroscopic fat attenuation. Indeterminate 1.3 cm hypodense structure adjacent to the inferior right hepatic lobe on image 138 appears stable. Unremarkable appearance of the kidneys. No hydronephrosis. Brachy therapy seeds of the prostate. Partial distention of the urinary bladder with mild wall thickening. Indeterminate nodular foci within the subcutaneous left inguinal distribution is nonspecific and may represent veins or lymph nodes. No pathologically enlarged lymph nodes are identified. Injection granulomata of the anterior subcutaneous abdominal wall. Tiny hiatal hernia. No bowel obstruction or bowel wall thickening. Colonic diverticulosis without acute diverticulitis. Normal appendix. Right hip total joint arthroplasty. Ill-defined sclerotic focus of the S1 segment redemonstrated. Progressive sclerosis of the L3 and L4 vertebral bodies. IMPRESSION: 1. Unremarkable CTA component of the study. No pulmonary emboli identified. 2. No acute intrathoracic, intra-abdominal or intrapelvic abnormality identified. 3. Mildly progressive metastatic disease with increased size of the pulmonary metastasis, increased size of the metastatic thoracic lymphadenopathy with progressive osseous metastasis. There is acute appearing pathologic fracturing involving the inferior T10 endplate without significant vertebral body height loss which is new from 07/04/2022. The previously described lesion at T10 has mildly increased in size. 4. Stable size of the heterogeneous left hepatic lobe mass which may represent hepatic metastasis versus a primary hepatic malignancy. 5. Additional findings as above. ACT 112: Negative or not required by law. The above report was generated using voice recognition software. It may contain grammatical, syntax or spelling errors. Electronically signed by: Layo Hooks M.D. 10/27/2022 8:37 PM ECG Findings: + paced rhythm Supervising Physician Co-Signing Physician Notes IM ATTENDING : Patient seen and examined. History obtained from patient, family, and records. Preceding documentation by Ms. Nika Thibodeaux PA-C reviewed. FINAL ASSESSMENT AND PLAN as follows : Shortness of breath Underlying restrictive lung disease/AL on CPAP/pulmonary hypertension as per records Lowest O2 sats of 90 on room air documented at the ER Multifactorial : Enlarging pulmonary/mediastinal mets on imaging, hx metastatic prostate cancer status post radiation status post Lupron on prednisone, patient Zytiga chemotherapy on hold due to cardiotoxicity Possible deconditioning following recent heart surgery, history severe status post TAVR Troponin elevation secondary to illness Chronic systolic heart failure (EF 35%, TTE 2022), ischemic cardiomyopathy, patient slightly on the dry side History CAD status post CABG status post stent/hx PVD as per records hyperlipidemia on statin Rx SSS sp PPM, hx PE/DVT as per records, subtherapeutic INR on Lovenox Coumadin bridge therapy postop DM2 on oral medications, suboptimal control as of recent hemoglobin A1c of 7.6 last October 2022 Postop colitis on empiric Flagyl course, diarrhea improving, rule out C. difficile chronic anemia, hemoglobin at baseline past tobacco abuse OBS Medical telemetry Baseline ABG Patient may benefit from home O2 Update patient's [facility] oncologist of updated CT chest results Radiation oncology consultation as per patient/family conversation with oncologist Re: Enlarging pulmonary/mediastinal mets Follow troponin Gentle IV hydration, resume home diuretic once euvolemic Stool C. difficile, continue Flagyl course for now Basal insulin, ISS BG goal [id number], carb count coverage PT OT eval DVT prophylaxis. Lovenox Coumadin bridge tx (INR goal between 2 and 3) Full code Patient's requesting updates for providers. Ms. Lucinda Lopez, contact #[phone]. Text document was generated using [facility] voice recognition software. It may contain grammatical or spelling errors. Kindly contact undersigned for clarification of any documentation item in question.
[2022-10-27] MEDS ORDERED: LACTATED RINGER'S 1,000 ML IV ONE (21:07)
[2022-10-27] MEDS ORDERED: SODIUM CHLORIDE 0.9% 500 ML IV STA (21:15)
[2022-10-27 22:01] LABS: Base Excess ABG 1.7 mEq/L (-9-1.8); HCO3 ABG 24 mmol/L (19-24); Oxygen Saturation ABG 98.7 % (90-95); PCO2 ABG 31 mmHg (35-46); PO2 ABG 136 mmHg (80-95)
[2022-10-27 22:16] LABS: Allen Test Pos (Pos)
[2022-10-27] MEDS ORDERED: WARFARIN SOD 5 MG TAB PO STA (22:38)
[2022-10-27] MEDS ORDERED: ENOXAPARIN 100 MG/1ML SYR SQ STA (22:39)
[2022-10-28] MEDS ORDERED: ACETAMINOPHEN 325 MG TAB PO PRN (00:18)
[2022-10-28] MEDS ORDERED: GLUCAGON FOR INJ 1 MG VIAL SQ PRN (00:18)
[2022-10-28] MEDS ORDERED: NITROGLYCERIN SL 0.4 MG/TAB TAB SL PRN (00:18)
[2022-10-28] MEDS ORDERED: GLUCOSE 40% GEL 15 GM TUBE PO PRN (00:18)
[2022-10-28] MEDS ORDERED: GLUCOSE 10 TAB/TUBE PO PRN (00:18)
[2022-10-28] MEDS ORDERED: PROMETHAZINE HCL 12.5 MG in SODIUM CHLORIDE 0.9% 50 ML IV PRN (00:18)
[2022-10-28] MEDS ORDERED: CARBOHYDRATES FOR HYPOGLYCEMIA PO PRN (00:18)
[2022-10-28] MEDS ORDERED: DEXTROSE 50% 50 ML SYRINGE IV PRN (00:18)
[2022-10-28] MEDS: predniSONE 5 MG TAB PO SCH ×3 (01:16→20:41)
[2022-10-28] MEDS: PANTOprazole 40 MG TAB PO SCH ×3 (01:16→20:41)
[2022-10-28] MEDS: FAMOTIDINE 20 MG TAB PO SCH ×3 (01:16→20:40)
[2022-10-28] MEDS: METOPROLOL SUCC 50MG EXT REL TAB PO SCH ×3 (01:16→20:40)
[2022-10-28] MEDS: LANTUS PER UNIT CHARGE SQ SCH ×2 (01:17→20:36)
[2022-10-28] MEDS: INSULIN ASPART PER UNIT SC SCH ×5 (01:17→20:33)
[2022-10-28 06:07] LABS: Basophils # (auto) 0.02 K/uL (0-0.2); Basophils % (auto) 0.4 %; Eosinophils # (auto) 0.02 K/uL (0-0.50); Eosinophils % (auto) 0.4 %; Hematocrit (blood only) 36.4 % (40.1-51.0); Hemoglobin 12.5 g/dl (14.0-18.0); Immature Granulocytes # (auto) 0.03 K/uL (0.00-0.02); Immature Granulocytes % (auto) 0.6 %; Lymphocytes # (auto) 0.74 K/uL (1.2-3.4); Lymphocytes % (auto) 14.4 %; Mean Corpuscular Hemoglobin 30.1 pg (25.0-34.0); Mean Corpuscular Hgb Conc 34.3 g/dL (32.0-36.0); Mean Corpuscular Volume 87.7 fL (80.0-100.0); Mean Platelet Volume 8.9 fL (9.4-12.4); Monocytes # (auto) 0.57 K/uL (0.24-0.82); Monocytes % (auto) 11.1 %; Neutrophils # (auto) 3.76 K/uL (1.4-6.5); Neutrophils % (auto) 73.1 %; Platelet Count 155 K/uL (130-400); RDW Coefficient of Variation 14.5 % (11.5-14.5); RDW Standard Deviation 46.3 fL (36.4-46.3); Red Blood Count 4.15 M/uL (4.63-6.08); White Blood Count 5.14 K/ul (4.8-10.8)
[2022-10-28 06:10] LABS: INR 1.6 (0.9-1.1); Prothrombin Time 16.7 Seconds (9.0-12.0)
[2022-10-28] MEDS: AMIODARONE 200 MG TAB PO SCH (06:18)
[2022-10-28 06:30] LABS: BUN Creatinine Ratio 29.1 (10-20); Calcium 8.6 mg/dl (8.5-10.1); Creatinine Clr Calc Pharmacy 81.6 ml/min; Est GFR (African American) 96.9 ml/min; Est GFR (Non-African American) 83.6 ml/min; Potassium 3.4 mmol/L (3.5-5.1)
[2022-10-28] MEDS: TAMSULOSIN HCL 0.4 MG CAP PO SCH (08:43)
[2022-10-28] MEDS: LORATADINE 10 MG TAB PO SCH (08:43)
[2022-10-28] MEDS: metroNIDAZOLE 500 MG TAB PO SCH ×3 (08:43→20:41)
[2022-10-28] MEDS: ENOXAPARIN 100 MG/1ML SYR SQ SCH ×2 (08:44→20:40)
[2022-10-28] MEDS: ASPIRIN 81 MG ECTAB PO SCH (08:44)
[2022-10-28] MEDS ORDERED: AMIODARONE 200 MG TAB PO SCH (09:00)
[2022-10-28] MEDS ORDERED: NON-FORMULARY MEDICATION (Vit C,E-Zn-Coppr-Lutein-Zeaxan [Preservision Areds-2] 250-90-40- PO SCH (09:00)
--- NOTE | 2022-10-28 12:14 | Ultrasound Report ---
US soft tissue groin CLINICAL HISTORY: LEFT INGUINAL HEMATOMA TECHNIQUE: Real-time grayscale sonographic images of the left groin were obtained. Comparison: None available at the time of this dictation. FINDINGS/IMPRESSION: No acute abnormality and in particular no evidence of hematoma. ACT 112: Negative or not required by law. Electronically signed by: Adán Landrum M.D. 10/28/2022 12:12 PM
--- NOTE | 2022-10-28 12:51 | Cardiology Consultation ---
Date of Consultation October 28, 2022 History of Present Illness Reason for Consultation: Dyspnea on exertion Requesting Physician: Wisam Johnson MD Attending Physician: Wisam Johnson MD History of Present Illness Patient is a complex 81-year-old male with ongoing issues which include 1. Severe calcific aortic stenosis status post TAVR 10/24/2022 receiving [place]nel[place] ROSALINE 23 mm valve 2.Chronic ischemic heart disease, single-vessel,status post bare-metal stent to mid left anterior descending May 2016 complicated by thrombosis, with subsequent coronary bypass grafting ABRAMS graft left anterior descending.Patent left internal mammary graft by cardiac catheterization August 2022 3. Ischemic cardiomyopathy with moderate left ventricular dysfunction 4. Paroxysmal atrial fibrillation 5. 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 Type 2 diabetes mellitus 7. Obstructive sleep apnea 8. Metastatic prostate cancer with pulmonary nodules, mediastinal lymphadenopathy on chronic prednisone 9. Prior DVT pulmonary emboli on anticoagulation with warfarin Patient presents this admission after recent discharge from [facility]. During that hospitalization he underwent aortic valve replacement. He presents today noting difficulties with exertional dyspnea potentially worsened since his recent hospitalization. No fevers chills or unexplained infections. No bleeding difficulties. Atorvastatin restarted post recent discharge Blood pressure running somewhat elevated since discharge No signs or symptoms of fluid retention Bilateral groin access sites have been healing Echocardiogram post TAVR demonstrated normal valve function with chronic ischemic cardiomyopathy. Similar findings on echocardiogram today no or AI Allergies Allergy/AdvReac Type Severity Reaction Status Date / Time No Known Allergies Allergy Verified 10/27/22 21:07 Home Medications Medication Instructions Recorded Confirmed Type glucosamine sulf dipot 1 cap PO BID 02/21/19 10/27/22 History chlr,msm,chond 550 mg-C 30 mg-erum 1 mg capsule (Glucosamine Chondroitin) nitroglycerin 0.4 mg sublingual 0.4 mg sublingual DIRECTED PRN 02/21/19 10/27/22 History tablet (Nitrostat) Chest Pain omeprazole 20 mg capsule,delayed 20 mg PO BID 02/21/19 10/27/22 History release potassium chloride 10 mEq 10 meq PO DAILY 02/21/19 10/27/22 History tablet,extended release(part/cryst) (Klor-Con M) cholecalciferol (vitamin D3) 25 1,000 mcg PO DAILY 01/08/21 10/27/22 History mcg (1,000 unit) tablet metoprolol succinate 50 mg 50 mg PO AMPM 06/13/21 10/27/22 History tablet,extended release 24 hr vit C 250 mg-vit E 90 mg-zinc 40 2 tab PO DAILY 10/16/21 10/27/22 History mg-copper 1 by-kanhbo-bptkne capsule (PreserVision AREDS-2) famotidine 20 mg tablet (Pepcid) 20 mg PO BID 03/17/22 10/27/22 History prednisone 5 mg tablet 5 mg PO BID 03/17/22 10/27/22 History acetaminophen 325 mg tablet 650 - 975 mg PO DAILY PRN 03/28/22 10/27/22 History (Tylenol) PAIN/FEVER ascorbic acid (vitamin C) 500 mg 1,000 mg PO DAILY 03/28/22 10/27/22 History tablet (Vitamin C) hydrocortisone 2.5 % topical cream 1 applic topical DAILY PRN 03/28/22 10/27/22 History UNDERARMS FOR FLARE UPS albuterol sulfate 90 mcg/actuation 1 inh inhalation Q6H PRN Shortness 07/04/22 10/27/22 History aerosol inhaler (Ventolin HFA) Of Breath Or Wheezing amiodarone 200 mg tablet 200 mg PO DAILY 07/04/22 10/27/22 History loratadine 10 mg tablet (Claritin) 10 mg PO DAILY 07/04/22 10/27/22 History aspirin 81 mg chewable tablet 81 mg PO DAILY 10/15/22 10/27/22 History furosemide 20 mg tablet (Lasix) 20 mg PO QAM 10/15/22 10/27/22 History glipizide 5 mg tablet 2.5 mg PO DAILY 10/15/22 10/27/22 History tacrolimus 0.1 % topical ointment 1 applic topical BID PRN FLARES OF 10/15/22 10/27/22 History PSORIASIS tamsulosin 0.4 mg capsule (Flomax) 0.4 mg PO DAILY 10/15/22 10/27/22 History warfarin 5 mg tablet See Rx Instructions .Route .COMPLEX 10/15/22 10/27/22 History albuterol sulfate 5 mg/mL(0.5 %) 2.5 mg inhalation DIRECTED PRN 10/27/22 10/27/22 History solution for nebulization Shortness Of Breath atorvastatin 40 mg tablet (Lipitor) 40 mg PO PM 10/27/22 10/27/22 History enoxaparin 100 mg/mL subcutaneous 100 mg subcut Q12H 10/27/22 10/27/22 History syringe (Lovenox) metronidazole 500 mg tablet 500 mg PO TID 10/27/22 10/27/22 History Patient History Medical History Aortic stenosis Asthma Atrial fibrillation with RVR CAD (coronary artery disease) Status post PCI with a BMS to the mid LAD on 05/16/2016. 2.May 26, 2016 diagnostic cardiac catheterization at [facility], Dr. 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 Also, far beyond the stent, there was visible healed dissection flap, Type B, non- obstructive. 3.Status post CABG x 1 with a ABRAMS to LAD for persistent angina, May 2016. 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 AL on CPAP Paroxysmal atrial fibrillation Pneumonia due to COVID-19 virus Prostate cancer metastatic to lung Tachy-shanita syndrome Surgical History H/O esophagogastroduodenoscopy Hx of total knee arthroplasty S/P CABG x 1 S/P cholecystectomy S/P hip replacement S/P knee replacement Family History Other Diabetes Heart disease Social History Smoking Status: Former smoker Tobacco Type: Cigarettes Cigarettes Per Day: 40; Second Hand Exposure: No; Hx Alcohol Use: No Hx Substance Use: No Preferred Language: Mongolian Communication Ability: Effective Visual Impairment: No Limitations Hearing Ability: Normal Asset Availability Leader Required: No Beliefs That Will Affect Care: None marital status: Current Living Situation: Spouse Current Living Situation Comment: Home with Feels Safe at Home: Yes Safety Concerns: Feels Safe At This Time Assistive Devices: Cane and CPAP Review of Systems Review of Systems: All systems reviewed & are unremarkable except as noted in HPI & below Physical Exam Constitutional: WD/WN, vitals as above no acute distress Eyes: PERRL, conjunctivae normal, anicteric sclerae ENMT: external ear and nose normal, oropharynx normal Neck: trachea midline, no thyromegaly Respiratory: normal respiratory effort, lungs clear to auscultation Cardiovascular: Rate/Rhythm: regular rate and regular rhythm (Atrial paced) Heart Sounds: normal S1, normal S2 and + murmur (Grade 2 or 6 systolic); no gallop Palpation: normal PMI Vessels: normal carotid upstroke and radial pulses present; no JVD and no carotid bruit Extremities: no edema Left groin hematoma minimal superficial with intact pulses Chest (Breasts): Chest: + pacemaker Gastrointestinal (Abdomen): normal bowel sounds, soft, nontender, no hepatosplenomegaly Musculoskeletal: no cyanosis or clubbing, extremities motor strength 5/5 Skin: no rashes, warm and dry Neurologic: PERRL, EOMI, accommodation nl, no face palsy, no dysarthria Psychiatric: A+Ox3, euthymic affect Results & Data ([facility]) Vital Signs (Past 12 Hours) Vital Signs Temp Pulse Pulse Pulse Pulse Pulse Resp 10/28/22 11:51 36.5 C 69 18 10/28/22 11:36 102 H 10/28/22 11:36 10/28/22 10:10 95 H 90 73 10/28/22 08:23 10/28/22 07:47 36.8 C 106 H 18 10/28/22 03:00 36.6 C 109 H 18 Resp Resp Resp BP Pulse Ox Pulse Ox Pulse Ox 10/28/22 11:51 137/74 94 10/28/22 11:36 10/28/22 11:36 10/28/22 10:10 20 20 16 94 96 10/28/22 08:23 117/73 10/28/22 07:47 88/53 L 97 10/28/22 03:00 114/73 92 Pulse Ox O2 Del Method 10/28/22 11:51 Room Air 10/28/22 11:36 10/28/22 11:36 Room Air 10/28/22 10:10 97 10/28/22 08:23 10/28/22 07:47 Room Air 10/28/22 03:00 Room Air Laboratory Results Laboratory Results - last 24 hr 10/27/22 10/27/22 10/27/22 16:30 16:30 16:30 WBC 5.56 RBC 4.39 L Hgb 13.5 L Hct 39.3 L MCV 89.5 MCH 30.8 MCHC 34.4 RDW Std Deviation 46.5 H RDW Coeff of Braldy 14.2 Plt Count 168 MPV 9.0 L Immature Gran % (Auto) 0.5 Neut % (Auto) 74.9 Lymph % (Auto) 13.8 Faulk % (Auto) 10.4 Eos % (Auto) 0.2 Baso % (Auto) 0.2 Neut # (Auto) 4.16 Lymph # (Auto) 0.77 L Faulk # (Auto) 0.58 Eos # (Auto) 0.01 Baso # (Auto) 0.01 Immature Gran # (Auto) 0.03 H PT 14.1 H INR 1.3 H APTT 37.3 H PTT Ratio 1.4 ABG pH ABG pCO2 ABG pO2 ABG HCO3 ABG O2 Saturation ABG Base Excess Giovanni Test Oxygen Given Sodium 138 Potassium 3.6 Chloride 101 Carbon Dioxide 26 Anion Gap 11 BUN 30 H Creatinine 1.10 Est Cr Clr Drug Dosing Not Reportable Est GFR ( Amer) 72.1 Est GFR (Non-Af Amer) 62.2 BUN/Creatinine Ratio 27.3 H Glucose 195 H POC Glucose Calcium 9.4 Magnesium 2.1 Total Bilirubin 0.6 AST 20 ALT 17 Alkaline Phosphatase 218 H Troponin I High Sens 98.2 H* Total Protein 7.2 Albumin 4.0 Globulin 3.2 Albumin/Globulin Ratio 1.3 SARS-CoV-2 (PCR) Influenza Type A (PCR) Influenza Type B (PCR) RSV (RT-PCR) 10/27/22 10/27/22 10/27/22 21:45 21:45 Unknown WBC RBC Hgb Hct MCV MCH MCHC RDW Std Deviation RDW Coeff of Bradly Plt Count MPV Immature Gran % (Auto) Neut % (Auto) Lymph % (Auto) Faulk % (Auto) Eos % (Auto) Baso % (Auto) Neut # (Auto) Lymph # (Auto) Faulk # (Auto) Eos # (Auto) Baso # (Auto) Immature Gran # (Auto) PT INR APTT PTT Ratio ABG pH 7.50 H ABG pCO2 31 L ABG pO2 136 H ABG HCO3 24 ABG O2 Saturation 98.7 H ABG Base Excess 1.7 Giovanni Test Pos Oxygen Given 2 Sodium Potassium Chloride Carbon Dioxide Anion Gap BUN Creatinine Est Cr Clr Drug Dosing Est GFR ( Amer) Est GFR (Non-Af Amer) BUN/Creatinine Ratio Glucose POC Glucose Calcium Magnesium Total Bilirubin AST ALT Alkaline Phosphatase Troponin I High Sens 86.9 H* D Total Protein Albumin Globulin Albumin/Globulin Ratio SARS-CoV-2 (PCR) NEGATIVE Influenza Type A (PCR) Negative Influenza Type B (PCR) Negative RSV (RT-PCR) Negative 10/28/22 10/28/22 10/28/22 00:49 05:44 05:44 WBC 5.14 RBC 4.15 L Hgb 12.5 L Hct 36.4 L MCV 87.7 MCH 30.1 MCHC 34.3 RDW Std Deviation 46.3 RDW Coeff of Bradly 14.5 Plt Count 155 MPV 8.9 L Immature Gran % (Auto) 0.6 Neut % (Auto) 73.1 Lymph % (Auto) 14.4 Faulk % (Auto) 11.1 Eos % (Auto) 0.4 Baso % (Auto) 0.4 Neut # (Auto) 3.76 Lymph # (Auto) 0.74 L Faulk # (Auto) 0.57 Eos # (Auto) 0.02 Baso # (Auto) 0.02 Immature Gran # (Auto) 0.03 H PT 16.7 H INR 1.6 H APTT PTT Ratio ABG pH ABG pCO2 ABG pO2 ABG HCO3 ABG O2 Saturation ABG Base Excess Giovanni Test Oxygen Given Sodium Potassium Chloride Carbon Dioxide Anion Gap BUN Creatinine Est Cr Clr Drug Dosing Est GFR ( Amer) Est GFR (Non-Af Amer) BUN/Creatinine Ratio Glucose POC Glucose 161 H Calcium Magnesium Total Bilirubin AST ALT Alkaline Phosphatase Troponin I High Sens Total Protein Albumin Globulin Albumin/Globulin Ratio SARS-CoV-2 (PCR) Influenza Type A (PCR) Influenza Type B (PCR) RSV (RT-PCR) 10/28/22 10/28/22 10/28/22 05:44 07:24 11:53 WBC RBC Hgb Hct MCV MCH MCHC RDW Std Deviation RDW Coeff of Bradly Plt Count MPV Immature Gran % (Auto) Neut % (Auto) Lymph % (Auto) Faulk % (Auto) Eos % (Auto) Baso % (Auto) Neut # (Auto) Lymph # (Auto) Faulk # (Auto) Eos # (Auto) Baso # (Auto) Immature Gran # (Auto) PT INR APTT PTT Ratio ABG pH ABG pCO2 ABG pO2 ABG HCO3 ABG O2 Saturation ABG Base Excess Giovanni Test Oxygen Given Sodium 137 Potassium 3.4 L Chloride 104 Carbon Dioxide 24 Anion Gap 9 BUN 23 Creatinine 0.79 D Est Cr Clr Drug Dosing 81.6 Est GFR ( Amer) 96.9 Est GFR (Non-Af Amer) 83.6 BUN/Creatinine Ratio 29.1 H Glucose 159 H POC Glucose 182 H 142 H Calcium 8.6 Magnesium Total Bilirubin AST ALT Alkaline Phosphatase Troponin I High Sens Total Protein Albumin Globulin Albumin/Globulin Ratio SARS-CoV-2 (PCR) Influenza Type A (PCR) Influenza Type B (PCR) RSV (RT-PCR) Diagnostic Findings Echocardiogram 10/25/2022 The qualitative LV ejection fraction is 35-39% (moderately reduced). 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 The patient is status post TAVR with Rosaline type prosthetic valve. Aortic valve prosthesis stenosis is absent. Significant aortic valve prosthesis regurgitation is absent.
[2022-10-28] MEDS ORDERED: POTASSIUM CHLORIDE CRTAB 20 MEQ TABCR PO ONE (13:11)
--- NOTE | 2022-10-28 14:26 | Hospitalist Progress Note ---
Date of Service October 28, 2022 Assessment & Plan (1) GILBERT (dyspnea on exertion): (2) Elevated troponin I level: (3) Subtherapeutic international normalized ratio (INR): (4) Aortic stenosis: (5) History of transcatheter aortic valve replacement (TAVR): (6) Chronic HFrEF (heart failure with reduced ejection fraction): (7) Prostate cancer metastatic to lung: (8) Colitis: (9) CAD (coronary artery disease): (10) Paroxysmal atrial fibrillation: (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: (12) Hypertension: (13) AL on CPAP: Plan: Per Admitting service notes with addendum: Shortness of breath Underlying restrictive lung disease/AL on CPAP/pulmonary hypertension as per records Lowest O2 sats of 90 on room air documented at the ER Multifactorial : Enlarging pulmonary/mediastinal mets on imaging, hx metastatic prostate cancer status post radiation status post Lupron on prednisone, patient Zytiga chemotherapy on hold due to cardiotoxicity Possible deconditioning following recent heart surgery, history severe status post TAVR Troponin elevation secondary to illness 10/28 CT chest: no PE, pleural effusion, pneumonia Troponin trended down Echo: normal function of AV s/p TAVR 10/24/22 2 step exercise test: O2 sat 94% on exertion at rest >90% from atelectasis, deconditioning? Incentive spirometer, PT/OT evaluation Production Or Plant Engineer consulted Update patient's [facility] oncologist of updated CT chest results Radiation oncology consultation as per patient/family conversation with oncologist Re: Enlarging pulmonary/mediastinal mets Chronic systolic heart failure (EF 35%, TTE 2022), ischemic cardiomyopathy -- euvolemic today History CAD status post CABG status post stent/hx PVD as per records hyperlipidemia on statin Rx SSS sp PPM, hx PE/DVT as per records, subtherapeutic INR on Lovenox Coumadin bridge therapy postop -- INR 1.6, continue coumadin + Lovenox DM2 on oral medications, suboptimal control as of recent hemoglobin A1c of 7.6 last October 2022 Postop colitis on empiric Flagyl course, diarrhea improving, rule out C. dif ficile -- no diarrhea today chronic anemia, hemoglobin at baseline past tobacco abuse PT OT eval DVT prophylaxis. Lovenox Coumadin bridge tx (INR goal between 2 and 3) Full code Admission and Anticipated Discharge Date Admission Date: October 27, 2022 Subjective ff up for dyspnea on exertion, etc seen resting in bed, sleeping but easily awakened in good spirits states he feels fine today overall no active chest pain, dyspnea, palpitations, dizziness has not ambulated in the room yet no fever/chills, cough no other symptoms Review of Systems Review of Systems: all noted and negative except for above Physical Exam Physical Exam: General- oriented x 3, not in distress, speaks in sentences with no effort or accessory muscle use Eyes- anicteric Neck- no JVD Lungs- clear breath sounds bilaterally, no rales/wheezes Heart- normal rate, regular rhythm; no murmurs Abdomen- normal bowel sounds, nondistended, soft, nontender Inguinal region: L- mild ecchymoses and edema noted, no discharge/bleeding R- no ecchymoses Extremities- no pretibial edema, no calf tenderness Neuro- alert, oriented x 3; no gross focal neurologic deficits Skin- warm & dry Results & Data Results & Data ([facility]) Vital Signs (Past 12 Hours) Vital Signs Temp Pulse Pulse Pulse Pulse Pulse Resp 10/28/22 11:51 36.5 C 69 18 10/28/22 11:36 102 H 10/28/22 11:36 10/28/22 10:10 95 H 90 73 10/28/22 08:23 10/28/22 07:47 36.8 C 106 H 18 10/28/22 03:00 36.6 C 109 H 18 Resp Resp Resp BP Pulse Ox Pulse Ox Pulse Ox 10/28/22 11:51 137/74 94 10/28/22 11:36 10/28/22 11:36 10/28/22 10:10 20 20 16 94 96 10/28/22 08:23 117/73 10/28/22 07:47 88/53 L 97 10/28/22 03:00 114/73 92 Pulse Ox O2 Del Method 10/28/22 11:51 Room Air 10/28/22 11:36 10/28/22 11:36 Room Air 10/28/22 10:10 97 10/28/22 08:23 10/28/22 07:47 Room Air 10/28/22 03:00 Room Air all noted and reviewed including below
[2022-10-28] MEDS: LOSARTAN POTASSIUM 25 MG TAB PO SCH (15:10)
[2022-10-28] MEDS ORDERED: WARFARIN SOD 5 MG TAB PO SCH ×2 (16:00)
[2022-10-28] MEDS ORDERED: ATORVASTATIN 40 MG TAB PO SCH (21:00)
[2022-10-29 06:26] LABS: Basophils # (auto) 0.01 K/uL (0-0.2); Basophils % (auto) 0.3 %; Eosinophils # (auto) 0.01 K/uL (0-0.50); Eosinophils % (auto) 0.3 %; Hematocrit (blood only) 32.4 % (40.1-51.0); Hemoglobin 11.1 g/dl (14.0-18.0); Immature Granulocytes # (auto) 0.02 K/uL (0.00-0.02); Immature Granulocytes % (auto) 0.5 %; Lymphocytes # (auto) 0.73 K/uL (1.2-3.4); Lymphocytes % (auto) 19.1 %; Mean Corpuscular Hemoglobin 30.2 pg (25.0-34.0); Mean Corpuscular Hgb Conc 34.3 g/dL (32.0-36.0); Mean Corpuscular Volume 88.3 fL (80.0-100.0); Mean Platelet Volume 9.1 fL (9.4-12.4); Monocytes % (auto) 10.5 %; Neutrophils # (auto) 2.65 K/uL (1.4-6.5); Neutrophils % (auto) 69.3 %; Platelet Count 136 K/uL (130-400); RDW Coefficient of Variation 14.5 % (11.5-14.5); RDW Standard Deviation 46.4 fL (36.4-46.3); Red Blood Count 3.67 M/uL (4.63-6.08); White Blood Count 3.82 K/ul (4.8-10.8)
[2022-10-29 06:37] LABS: INR 2.4 (0.9-1.1); Prothrombin Time 24.5 Seconds (9.0-12.0)
[2022-10-29 07:07] LABS: BUN Creatinine Ratio 26.6 (10-20); Calcium 8.4 mg/dl (8.5-10.1); Creatinine Clr Calc Pharmacy 81.4 ml/min; Est GFR (African American) 96.9 ml/min; Est GFR (Non-African American) 83.6 ml/min; Potassium 3.8 mmol/L (3.5-5.1)
[2022-10-29] MEDS: ASPIRIN 81 MG ECTAB PO SCH (08:24)
[2022-10-29] MEDS: METOPROLOL SUCC 50MG EXT REL TAB PO SCH (08:25)
[2022-10-29] MEDS: AMIODARONE 200 MG TAB PO SCH (08:25)
[2022-10-29] MEDS: metroNIDAZOLE 500 MG TAB PO SCH ×2 (08:25→13:34)
[2022-10-29] MEDS: LOSARTAN POTASSIUM 25 MG TAB PO SCH (08:25)
[2022-10-29] MEDS: predniSONE 5 MG TAB PO SCH (08:25)
[2022-10-29] MEDS: FAMOTIDINE 20 MG TAB PO SCH (08:25)
[2022-10-29] MEDS: PANTOprazole 40 MG TAB PO SCH (08:25)
[2022-10-29] MEDS: TAMSULOSIN HCL 0.4 MG CAP PO SCH (08:25)
[2022-10-29] MEDS: LORATADINE 10 MG TAB PO SCH (08:26)
[2022-10-29] MEDS: ENOXAPARIN 100 MG/1ML SYR SQ SCH (08:26)
[2022-10-29] MEDS: INSULIN ASPART PER UNIT SC SCH ×2 (08:37→12:10)
--- NOTE | 2022-10-29 11:50 | Cardiology Progress Note ---
Date of Service October 29, 2022 Assessment & Plan (1) GILBERT (dyspnea on exertion): (2) History of transcatheter aortic valve replacement (TAVR): (3) Elevated troponin I level: (4) Cardiac pacemaker in situ: (5) Ischemic cardiomyopathy: Plan 81-year-old male who presented with symptoms of multifactorial complaint including dyspnea on exertion and fatigue. Recently underwent TAVR on 10/24/2022. Prosthetic valve function is normal. Underlying ischemic cardiomyopathy still present. No arrhythmias no change in LV function no signs of heart failure Medications adjusted for optimal management. Losartan 25 mg p.o. daily added Metoprolol succinate reduced to 25 mg twice per day Warfarin therapeutic Will continue amiodarone as ordered 200 mg daily Stable from cardiac standpoint will need follow-up with cardiology clinic/pacer clinic as scheduled Admission and Anticipated Discharge Date Admission Date: October 28, 2022 Subjective Patient seen and examined, chart, medications, telemetry reviewed. Still dyspneic but less so today. Up in room. No signs of symptoms of fluid retention. No chest pain or discomfort. Echocardiogram demonstrates normally functioning aortic valve replacement, no significant change in LV systolic function Blood pressure now better controlled. No hypoxia Rhythm atrial paced, no arrhythmia Review of Systems Review of Systems: All systems reviewed & are unremarkable except as noted in Subjective Physical Exam Constitutional: WD/WN, vitals as above no acute distress Eyes: PERRL, conjunctivae normal, anicteric sclerae ENMT: external ear and nose normal, oropharynx normal Neck: trachea midline, no thyromegaly Respiratory: normal respiratory effort, lungs clear to auscultation Cardiovascular: Rate/Rhythm: regular rate and regular rhythm (Atrial paced) Heart Sounds: normal S1, normal S2 and + murmur (Grade 2 or 6 systolic); no gallop Palpation: normal PMI Vessels: normal carotid upstroke and radial pulses present; no JVD and no carotid bruit Extremities: no edema Left groin access site with superficial ecchymosis no bruit Chest (Breasts): Chest: + pacemaker Gastrointestinal (Abdomen): normal bowel sounds, soft, nontender, no hepatosplenomegaly Musculoskeletal: no cyanosis or clubbing, extremities motor strength 5/5 Skin: no rashes, warm and dry Neurologic: PERRL, EOMI, accommodation nl, no face palsy, no dysarthria Psychiatric: A+Ox3, euthymic affect Results & Data ([facility]) Vital Signs (Past 12 Hours) Vital Signs Temp Pulse Pulse Resp BP Pulse Ox O2 Del Method 10/29/22 09:08 60 10/29/22 08:00 Room Air 10/29/22 07:49 36.7 C 84 18 126/71 96 Room Air 10/29/22 02:46 36.9 C 70 18 108/63 91 Room Air Laboratory Results Laboratory Results - last 24 hr 10/28/22 10/28/22 10/28/22 11:53 16:19 20:02 WBC RBC Hgb Hct MCV MCH MCHC RDW Std Deviation RDW Coeff of Bradly Plt Count MPV Immature Gran % (Auto) Neut % (Auto) Lymph % (Auto) Dickenson % (Auto) Eos % (Auto) Baso % (Auto) Neut # (Auto) Lymph # (Auto) Dickenson # (Auto) Eos # (Auto) Baso # (Auto) Immature Gran # (Auto) PT INR Sodium Potassium Chloride Carbon Dioxide Anion Gap BUN Creatinine Est Cr Clr Drug Dosing Est GFR ( Amer) Est GFR (Non-Af Amer) BUN/Creatinine Ratio Glucose POC Glucose 142 H 183 H 115 H Calcium 10/29/22 10/29/22 10/29/22 05:27 05:27 05:27 WBC 3.82 L RBC 3.67 L Hgb 11.1 L Hct 32.4 L MCV 88.3 MCH 30.2 MCHC 34.3 RDW Std Deviation 46.4 H RDW Coeff of Bradly 14.5 Plt Count 136 MPV 9.1 L Immature Gran % (Auto) 0.5 Neut % (Auto) 69.3 Lymph % (Auto) 19.1 Dickenson % (Auto) 10.5 Eos % (Auto) 0.3 Baso % (Auto) 0.3 Neut # (Auto) 2.65 Lymph # (Auto) 0.73 L Dickenson # (Auto) 0.40 Eos # (Auto) 0.01 Baso # (Auto) 0.01 Immature Gran # (Auto) 0.02 PT 24.5 H INR 2.4 H Sodium 138 Potassium 3.8 Chloride 105 Carbon Dioxide 25 Anion Gap 8 BUN 21 Creatinine 0.79 Est Cr Clr Drug Dosing 81.4 Est GFR ( Amer) 96.9 Est GFR (Non-Af Amer) 83.6 BUN/Creatinine Ratio 26.6 H Glucose 166 H POC Glucose Calcium 8.4 L 10/29/22 10/29/22 07:20 11:21 WBC RBC Hgb Hct MCV MCH MCHC RDW Std Deviation RDW Coeff of Bradly Plt Count MPV Immature Gran % (Auto) Neut % (Auto) Lymph % (Auto) Dickenson % (Auto) Eos % (Auto) Baso % (Auto) Neut # (Auto) Lymph # (Auto) Dickenson # (Auto) Eos # (Auto) Baso # (Auto) Immature Gran # (Auto) PT INR Sodium Potassium Chloride Carbon Dioxide Anion Gap BUN Creatinine Est Cr Clr Drug Dosing Est GFR ( Amer) Est GFR (Non-Af Amer) BUN/Creatinine Ratio Glucose POC Glucose 144 H 212 H Calcium
[2022-10-29 12:15] VITALS: BP 109/62; PULSE 76; TEMP 98.4; O2SAT 95
--- NOTE | 2022-10-29 16:42 | Hospitalist Progress Note ---
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: (12) Hypertension: (13) AL on CPAP: Plan: (1) GILBERT (dyspnea on exertion): (2) Elevated troponin I level: (3) Subtherapeutic international normalized ratio (INR): (4) Aortic stenosis: (5) History of transcatheter aortic valve replacement (TAVR): (6) Chronic HFrEF (heart failure with reduced ejection fraction): (7) Prostate cancer metastatic to lung: (8) Colitis: (9) CAD (coronary artery disease): (10) Paroxysmal atrial fibrillation: (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: (12) Hypertension: (13) AL on CPAP: Plan: Per Admitting service notes with addendum: Shortness of breath Underlying restrictive lung disease/AL on CPAP/pulmonary hypertension as per records Lowest O2 sats of 90 on room air documented at the ER Multifactorial : Enlarging pulmonary/mediastinal mets on imaging, hx metastatic prostate cancer status post radiation status post Lupron on prednisone, patient Zytiga chemotherapy on hold due to cardiotoxicity Possible deconditioning following recent heart surgery, history severe status post TAVR Troponin elevation secondary to illness 10/28 CT chest: no PE, pleural effusion, pneumonia Troponin trended down Echo: normal function of AV s/p TAVR 10/24/22 2 step exercise test: O2 sat 94% on exertion at rest >90% 10/29 Doing well overall Discharged today from atelectasis, deconditioning? Incentive spirometer, PT/OT evaluation Prompt Care Rn consulted: Losartan 25 mg p.o. daily added Metoprolol decreased to 25 mg p.o. twice daily Resume usual Coumadin regimen Update patient's [facility] oncologist of updated CT chest results Radiation oncology consultation as per patient/family conversation with oncologist Re: Enlarging pulmonary/mediastinal mets Chronic systolic heart failure (EF 35%, TTE 2022), ischemic cardiomyopathy -- euvolemic today History CAD status post CABG status post stent/hx PVD as per records hyperlipidemia on statin Rx SSS sp PPM, hx PE/DVT as per records, subtherapeutic INR on Lovenox Coumadin bridge therapy postop -- INR 2.4, continue coumadin -- Will update Coumadin clinic and request to follow-up with patient on Sunday DM2 on oral medications, suboptimal control as of recent hemoglobin A1c of 7.6 last October 2022 Postop colitis on empiric Flagyl course, diarrhea improving -- no diarrhea today chronic anemia, hemoglobin at baseline past tobacco abuse PT OT eval DVT prophylaxis. 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 Seen resting in bed, comfortable, not in distress In good spirits States he feels much better overall Able to ambulate in the hallways, no shortness of breath no chest pain, dyspnea, palpitations, dizziness No cough, fever chills, abdominal pain, nausea vomiting No other symptoms States he is ready and would like to be discharged today Review of Systems Review of Systems: all noted and negative except for above Physical Exam Physical Exam: General- oriented x 3, not in distress, speaks in sentences with no effort or accessory muscle use Eyes- anicteric Neck- no JVD Lungs- clear breath sounds bilaterally, no crackles or wheezing Heart- normal rate, regular rhythm; no murmurs Abdomen- normal bowel sounds, nondistended, soft, nontender Extremities- no pretibial edema, no calf tenderness Neuro- alert, oriented x 3; no gross focal neurologic deficits Skin- warm & dry Results & Data Results & Data ([facility]) Vital Signs (Past 12 Hours) Vital Signs Temp Pulse Pulse Resp BP Pulse Ox O2 Del Method 10/29/22 14:56 36.9 C 76 16 109/62 95 10/29/22 12:14 36.9 C 76 16 109/62 95 Room Air 10/29/22 09:08 60 10/29/22 08:00 Room Air 10/29/22 07:49 36.7 C 84 18 126/71 96 Room Air all noted and reviewed including below
--- NOTE | 2022-10-29 17:16 | Discharge Summary ---
Discharge Summary Date of Service October 29, 2022 Notes For Next Care Provider Start LOSARTAN 25mg daily Decrease Metoprolol succinate from 50mg twice a day to 25mg twice a day. Resume your usual Coumadin regimen. Patient's oncologist needs to be notified regarding increasing size of pulmonary nodules/metastases. Medication Changes From Visit Start LOSARTAN 25mg daily Decrease Metoprolol succinate from 50mg twice a day to 25mg twice a day. Resume your usual Coumadin regimen. Admission HPI Per Admitting Provider Patient is 81-year-old male with PMH CAD with history of stent to mid LAD 05/2016 with eventual CABG ABRAMS to LAD in 2015, chronic HFrEF, PAF anticoagulated on warfarin, tachybradycardia syndrome s/p pacemaker, HTN, HLD, AL on CPAP, m oderate aortic stenosis, metastatic prostate cancer currently receiving treatment, history of PE/DVT presented to ER with complaint of increased shortness of breath with exertion x 2 days. History obtained from patient, and inpatient and outpatient chart review. Prior records reviewed. Recent hospitalization at [facility] 10/15/2022-10/16/2022 for CP, SOB. 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 Cardiology had recommended transfer to [facility] for possible aortic valve surgery. Transferred to [facility] on 10/16/22- 10/25/22. At [facility] had TAVR on 10/24/2021 with placement of Ornelas Rosaline valve. He is currently on Lovenox bridge to warfarin. Zytiga was held while he was inpatient. Was started on Flagyl for possible colitis with last day of course on 10/31/2022. Patient feels diarrhea has improved. He states he had exertional SOB prior to TAVR but feels it is worse since his hospital discharge. Reports some discomfort bilateral groin at incision sites but denies any noted purulent drainage or bleeding. Denies fever/chills, diaphoresis, N/V, BELL, dizziness, syncope, vision changes, neck pain, CP, orthopnea, palpitations, cough, hemoptysis, sore throat, choking, otalgia, rhinorrhea, abdominal pain, paresthesias, weakness, extremity weakness, extremity edema, rashes, urinary symptoms. Admission Exam Per Admitting Provider General: no distress, obese Head: normocephalic, atraumatic Eyes: conjunctiva non-injected, anicteric ENT: normal inspection external ears, nose, mucous membranes moist Neck: supple, trachea midline Lungs: clear, no respiratory distress, no wheezing/rhonchi/rales CV: RRR, + murmur, no pretibial edema Abd: normal BS, soft, non-tender, ecchymosis bilateral groin Ext: no cyanosis, no calf tenderness Neuro: A&O x 3, no focal deficits noted, normal affect Skin: warm, dry Principal Dx & Hospital Course #1 = Principal Diagnosis (1) GILBERT (dyspnea on exertion): (2) Elevated troponin I level: (3) Subtherapeutic international normalized ratio (INR): (4) Aortic stenosis: (5) History of transcatheter aortic valve replacement (TAVR): (6) Chronic HFrEF (heart failure with reduced ejection fraction): (7) Prostate cancer metastatic to lung: (8) Colitis: (9) CAD (coronary artery disease): (10) Paroxysmal atrial fibrillation: (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 daily added Metoprolol decreased to 25 mg p.o. twice daily Resume usual Coumadin regimen patient's [facility] oncologist needs to be updated with CT chest results show increased size of pulmonary nodules Chronic systolic heart failure (EF 35%, TTE 2022), ischemic cardiomyopathy -- euvolemic History CAD status post CABG status post stent/hx PVD as per records hyperlipidemia on statin Rx SSS sp PPM, hx PE/DVT as per records, subtherapeutic INR on Lovenox Coumadin bridge therapy postop -- INR 2.4, continue coumadin -- Will update Coumadin clinic and request to follow-up with patient on Sunday DM2 on oral medications, suboptimal control as of recent hemoglobin A1c of 7.6 last October 2022 Postop colitis on empiric Flagyl course, diarrhea improving -- no diarrhea today chronic anemia, hemoglobin at baseline past tobacco abuse PT OT eval DVT prophylaxis. Lovenox Coumadin bridge tx (INR goal between 2 and 3) Full code Discharge to home Follow-up with PCP in 1 week Follow-up with scheduling administrator as scheduled plan of care discussed with patient in detail and at length all questions answered he is understanding, agreeable, comfortable with the plan of care Discharge Exam General- oriented x 3, not in distress, speaks in sentences with no effort or accessory muscle use Eyes- anicteric Neck- no JVD Lungs- clear breath sounds bilaterally, no crackles or wheezing Heart- normal rate, regular rhythm; no murmurs Abdomen- normal bowel sounds, nondistended, soft, nontender Extremities- no pretibial edema, no calf tenderness Neuro- alert, oriented x 3; no gross focal neurologic deficits Skin- warm & dry Updated Medication List Medication Instructions Recorded Confirmed Type glucosamine sulf dipot 1 cap PO BID 02/21/19 10/27/22 History chlr,msm,chond 550 mg-C 30 mg-erum 1 mg capsule (Glucosamine Chondroitin) nitroglycerin 0.4 mg sublingual 0.4 mg sublingual DIRECTED PRN 02/21/19 10/27/22 History tablet (Nitrostat) Chest Pain omeprazole 20 mg capsule,delayed 20 mg PO BID 02/21/19 10/27/22 History release potassium chloride 10 mEq 10 meq PO DAILY 02/21/19 10/27/22 History tablet,extended release(part/cryst) (Klor-Con M) cholecalciferol (vitamin D3) 25 1,000 mcg PO DAILY 01/08/21 10/27/22 History mcg (1,000 unit) tablet vit C 250 mg-vit E 90 mg-zinc 40 2 tab PO DAILY 10/16/21 10/27/22 History mg-copper 1 [id number] capsule (PreserVision AREDS-2) famotidine 20 mg tablet (Pepcid) 20 mg PO BID 03/17/22 10/27/22 History prednisone 5 mg tablet 5 mg PO BID 03/17/22 10/27/22 History acetaminophen 325 mg tablet 650 - 975 mg PO DAILY PRN 03/28/22 10/27/22 History (Tylenol) PAIN/FEVER ascorbic acid (vitamin C) 500 mg 1,000 mg PO DAILY 03/28/22 10/27/22 History tablet (Vitamin C) hydrocortisone 2.5 % topical cream 1 applic topical DAILY PRN 03/28/22 10/27/22 History UNDERARMS FOR FLARE UPS albuterol sulfate 90 mcg/actuation 1 inh inhalation Q6H PRN Shortness 07/04/22 10/27/22 History aerosol inhaler (Ventolin HFA) Of Breath Or Wheezing amiodarone 200 mg tablet 200 mg PO DAILY 07/04/22 10/27/22 History loratadine 10 mg tablet (Claritin) 10 mg PO DAILY 07/04/22 10/27/22 History aspirin 81 mg chewable tablet 81 mg PO DAILY 10/15/22 10/27/22 History furosemide 20 mg tablet (Lasix) 20 mg PO QAM 10/15/22 10/27/22 History glipizide 5 mg tablet 2.5 mg PO DAILY 10/15/22 10/27/22 History tacrolimus 0.1 % topical ointment 1 applic topical BID PRN FLARES OF 10/15/22 10/27/22 History PSORIASIS tamsulosin 0.4 mg capsule (Flomax) 0.4 mg PO DAILY 10/15/22 10/27/22 History warfarin 5 mg tablet See Rx Instructions .Route .COMPLEX 10/15/22 10/27/22 History albuterol sulfate 5 mg/mL(0.5 %) 2.5 mg inhalation DIRECTED PRN 10/27/2210/15 History solution for nebulization Shortness Of Breath atorvastatin 40 mg tablet (Lipitor) 40 mg PO PM 10/27/22 10/27/22 History metronidazole 500 mg tablet 500 mg PO TID 10/27/22 10/27/22 History losartan 25 mg tablet 25 mg PO QAM 30 days #30 tabs 10/29/22 Rx metoprolol succinate 25 mg 25 mg PO BID 30 days #60 tabs 10/29/22 Rx tablet,extended release 24 hr Hospital Stay Data Consultations 10/27/22 20:55 ED Decision to Admit Stat 10/27/22 22:59 Consult Radiation Oncology Routine 10/28/22 09:37 Consult Cardiology Routine Diagnostic Imagining Performed 10/27/22 17:44 CT angio abdomen pelvis w con Stat CT angio chest PE protocol Stat COMPARISON: Chest, abdomen and pelvis 07/04/2022. FINDINGS: CTA CHEST: Mild cardiomegaly with prior median sternotomy and prosthetic aortic valve. Left subclavian pacer. Thinning of the left ventricular apex with 1.6 cm apical saccular outpouching redemonstrated. Mural fibrofatty changes of the apical and septal tony compatible with prior infarct. No thoracic aortic aneurysm or dissection identified. Moderate coronary artery calcifications. No pulmonary emboli are identified. CT CHEST: Multinodular thyroid. Pathologic lymphadenopathy redemonstrated. Paratracheal lymphadenopathy measuring up to 4.0 x 2.7 cm on image 109 series 6 previously measured approximately 2.6 x 2.5 cm when measured in a similar fashion on the prior exam. Conglomerate left hilar lymphadenopathy and image 1:30 measuring 3.7 x 2.0 cm previously measured 3.2 x 1.8 cm on the prior exam. No pneumothorax, pleural effusion or overt pulmonary edema. Multifocal pulmonary metastasis redemonstrated. Index 2.3 cm subpleural nodule of the right lung base on image 189, previously 2.0 cm. 1.8 cm subpleural nodule of the inferior segment lingula, previously 1.7 cm. 1.1 cm subpleural solid nodule of the left lower lobe on image 29 previously measured 8 mm. Central airways are patent. Unremarkable soft tissues. Mild gynecomastia. Degenerative changes of the shoulders and spine. With central metastatic lesion of the T10 vertebral body has increased in size with interval pathologic fracture of the inferior endplate. No significant vertebral body height loss. Heterogeneous ill-defined sclerotic foci within several thoracic vertebral bodies appears stable. There is a new lucent focus of the sternal manubrium on image 51. CTA ABDOMEN/PELVIS: Moderate atherosclerosis. No abdominal aortic aneurysm or dissection. Patency of the iliac and imaged femoral arteries. The celiac trunk, superior and inferior mesenteric arteries as well as the bilateral renal arteries are patent. No aneurysm, dissection, high-grade stenosis, pseudoaneurysm or arterial occlusion identified. CT ABDOMEN/PELVIS: No pneumatosis or pneumoperitoneum. Unremarkable spleen, mildly atrophic pancreas and adrenal glands. Cholecystectomy. 6.2 cm heterogeneous mass of the left hepatic lobe with areas of apparent enhancement and necrosis appears stable from prior.This mass extends to the liver capsule and exhibits areas of central macroscopic fat attenuation. Indeterminate 1.3 cm hypodense structure adjacent to the inferior right hepatic lobe on image 138 appears stable. Unremarkable appearance of the kidneys. No hydronephrosis. Brachy therapy seeds of the prostate. Partial distention of the urinary bladder with mild wall thickening. Indeterminate nodular foci within the subcutaneous left inguinal distribution is nonspecific and may represent veins or lymph nodes. No pathologically enlarged lymph nodes are identified. Injection granulomata of the anterior subcutaneous abdominal wall. Tiny hiatal hernia. No bowel obstruction or bowel wall thickening. Colonic diverticulosis without acute diverticulitis. Normal appendix. Right hip total joint arthroplasty. Ill-defined sclerotic focus of the S1 segment redemonstrated. Progressive sclerosis of the L3 and L4 vertebral bodies. IMPRESSION: 1. Unremarkable CTA component of the study. No pulmonary emboli identified. 2. No acute intrathoracic, intra-abdominal or intrapelvic abnormality identified. 3. Mildly progressive metastatic disease with increased size of the pulmonary metastasis, increased size of the metastatic thoracic lymphadenopathy with progressive osseous metastasis. There is acute appearing pathologic fracturing involving the inferior T10 endplate without significant vertebral body height loss which is new from 07/04/2022. The previously described lesion at T10 has mildly increased in size. 4. Stable size of the heterogeneous left hepatic lobe mass which may represent hepatic metastasis versus a primary hepatic malignancy. 5. Additional findings as above. ACT 112: Negative or not required by law. The above report was generated using voice recognition software. It may contain grammatical, syntax or spelling errors. Electronically signed by: Layo Hooks M.D. 10/27/2022 8:37 PM 10/28/22 09:40 US soft tissue groin Routine CLINICAL HISTORY: LEFT INGUINAL HEMATOMA TECHNIQUE: Real-time grayscale sonographic images of the left groin were obtained. Comparison: None available at the time of this dictation. FINDINGS/IMPRESSION: No acute abnormality and in particular no evidence of hematoma. ACT 112: Negative or not required by law. Electronically signed by: Adán Landrum M.D. 10/28/2022 12:12 PM Pending Results Patient Have Any Pending Studies at Discharge: No Discharge Instructions Given to Patient (Per Discharging Provider) PLEASE REFER TO YOUR NEW MEDICATION LIST AND FOLLOW INSTRUCTIONS CAREFULLY. YOUR NEW MEDICATIONS INCLUDE: LOSARTAN 25mg daily Decrease Metoprolol succinate from 50mg twice a day to 25mg twice a day. Resume your usual Coumadin regimen. PLEASE CALL YOUR PRIMARY CARE PHYSICIAN OR RETURN TO THE ER IF WITH WORSENING OF SYMPTOMS, INCLUDING SHORTNESS OF BREATH, CHEST PAIN, DIZZINESS, FEVER/CHILLS, INCREASING SWELLING/REDNESS/PAIN OVER THE GROIN, ETC. FOLLOW UP WITH PRIMARY CARE PHYSICIAN IN 1 WEEK. THE COUMADIN CLINIC WILL CALL YOU FOR ADVICE ON Sunday10/29/22. Total Time Total Time Spent Total Time Spent (In Minutes): >30 minutes
--- NOTE | 2022-10-29 20:56 | Electrocardiogram Report ---
Test Reason : Blood Pressure : / mmHG Vent. Rate : 061 BPM Atrial Rate : 061 BPM P-R Int : 330 ms QRS Dur : 182 ms QT Int : 530 ms P-R-T Axes : 000 -82 080 degrees QTc Int : 533 ms Atrial-paced rhythm with prolonged AV conduction Left axis deviation Right bundle branch block Cannot rule out Septal infarct (cited on or before 27-OCT-2022) Abnormal ECG When compared with ECG of 16-OCT-2022 06:28, No significant change was found Confirmed by Vicente Guevara ([id number]) on 10/29/2022 8:56:26 PM Referred By: REFERRED SELF Confirmed By:Vicente Guevara
[2022-10-29] MEDS ORDERED: METOPROLOL SUCC 25MG EXT REL TAB PO SCH (21:00)
== END 2022-10-29 15:55 | disposition home or self-care (01) | DRG 204 ==
LOC: 2S 14:35 → ED 14:35 → SUATTDRO 22:41 → 2S 23:49

== ENCOUNTER 2022-11-08 18:03 | Inpatient (IN) ==
[2022-11-08 18:53] LABS: Basophils # (auto) 0.01 K/uL (0-0.2); Basophils % (auto) 0.1 %; Eosinophils # (auto) 0.01 K/uL (0-0.50); Eosinophils % (auto) 0.1 %; Immature Granulocytes # (auto) 0.05 K/uL (0.01-0.20); Immature Granulocytes % (auto) 0.7 %; Lymphocytes # (auto) 0.49 K/uL (1.2-3.4); Lymphocytes % (auto) 6.9 %; Mean Corpuscular Hemoglobin 30.5 pg (25.0-34.0); Mean Corpuscular Hgb Conc 34.2 g/dL (32.0-36.0); Mean Corpuscular Volume 89.2 fL (80.0-100.0); Mean Platelet Volume 9.1 fL (9.4-12.4); Monocytes # (auto) 0.56 K/uL (0.11-0.59); Monocytes % (auto) 7.9 %; Neutrophils # (auto) 5.97 K/uL (1.40-6.50); Neutrophils % (auto) 84.3 %; Platelet Count 149 K/uL (130-400); RDW Coefficient of Variation 15.2 % (11.5-14.5); RDW Standard Deviation 49.2 fL (36.4-46.3); Red Blood Count 4.26 M/uL (4.70-6.10); White Blood Count 7.09 K/ul (4.8-10.8)
--- NOTE | 2022-11-08 18:54 | Emergency Department Note ---
Impression & Plan Hypoxia DC ED Provider Note HPI: The patient is an 81-year-old gentleman with history of recent TAVR, type 2 diabetes, paroxysmal atrial fibrillation on Coumadin, history of tachybradycardia syndrome status post pacemaker, presents the emergency department with a chief complaint of shortness of breath with ambulation. Patient states that he has been feeling more short of breath with exertion over about the past week. Denies any chest pain with these episodes. On arrival here to the ED the patient is hemodynamically stable, he is initially saturating well at 94% on room air, he otherwise appears in no acute distress. ROS: - Per HPI *Outpatient medications and allergy history reviewed. *Pertinent external medical records reviewed. PE: General: Alert HEENT: Normocephalic, trachea midline Eyes: Extraocular eye movement is intact, no scleral erythema Pulmonary: Slightly diminished bilaterally without any wheezing or crackles Cardio: Regular rate and rhythm GI: Abdomen is soft, nontender : No suprapubic tenderness MSK: No evidence of trauma or malformation of the extremities, no edema Skin: No evidence of rash Neuro: Alert, no focal deficits Psychiatric: Cooperative engine monitor: - An order was placed for continuous cardiac monitoring - Patient was noted to be in paced rhythm with a rate of 65 EKG: (As interpreted by myself): Rate: 60 Rhythm: Paced rhythm Intervals: OK interval prolonged at 258 ms, QRS 194 ms, QTC [address] changes: No ST elevation Time: 1822 Interventions provided in ED: -Supplemental oxygen Medical Decision Making: Patient presented to the emergency department with worsening shortness of breath. Is been ongoing over the past several days and longer. Patient states his symptoms acutely worsened over the past several days. He states he is more short of breath with exertion. On arrival here to the ED he is in no acute distress, he was noted to have some hypoxic episodes here in the ED at rest when he fell asleep to 80%. He was therefore placed on supplemental oxygen. This did improve his saturations. IV was established, lab work obtained, patient was placed on radiation monitor, troponin is within normal limits, BNP is also within normal limits, chest x-ray does not show any evidence of overt fluid overload. Patient's COVID-19 and influenza testing are negative. Upon review of the patient's previous CT imaging from 10/27/2022, there is concern for metastatic disease in the lungs, li mitchell primary liver malignancy noted as well. Patient's family state they are aware of this and he has an outpatient PET scan scheduled in early November. Given his shortness of breath with occurrences of hypoxia, in addition to the fact that the patient is becoming very short of breath with minimal exertion, family expresses that they would like the patient to be admitted for further care. I did discuss the case with the on-call hospitalist, Dr. Saleem, who is in agreement to admit the patient for further management. Patient was admitted in stable condition. Disposition discussion held by myself with: Patient and at bedside Critical care time: 33 minutes -Stabilization of hypoxia with oxygen saturations less than 90% on room air requiring supplemental oxygen for improvement, time spent at the bedside, interpretation of diagnostic studies including lab work, rhythm strip, and EKG, discussion with other physicians/hospitalist service and arrangement of admission Diagnosis: 1. Hypoxia, acute 2. Dyspnea on exertion 3. Metastatic disease to the lungs (per CT imaging 10/27/2022) Disposition: Admission Fredy Hopknis DO Emergency Medicine Past Med/Surg History Medical History Aortic stenosis Asthma Atrial fibrillation with RVR CAD (coronary artery disease) Status post PCI with a BMS to the mid LAD on 05/16/2016. 2.May 26, 2016 diagnostic cardiac catheterization at [facility], Dr. 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 Also, far beyond the stent, there was visible healed dissection flap, Type B, non-obstructive. 3.Status post CABG x 1 with a ABRAMS to LAD for persistent angina, May 2016. 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 Surgical History H/O esophagogastroduodenoscopy Hx of total knee arthroplasty S/P CABG x 1 S/P cholecystectomy S/P hip replacement S/P knee replacement Family History Other Diabetes Heart disease Social History Smoking Status: Former smoker Tobacco Type: Cigarettes Cigarettes Per Day: 40; Second Hand Exposure: No; Hx Alcohol Use: No Hx Substance Use: No Preferred Language: Jordanian Communication Ability: Effective Visual Impairment: No Limitations Hearing Ability: Normal Process Pumper Required: No Beliefs That Will Affect Care: None marital status: Current Living Situation: Spouse Current Living Situation Comment: Home with Feels Safe at Home: Yes Safety Concerns: Feels Safe At This Time Assistive Devices: Cane and CPAP Allergies Allergies Allergy/AdvReac Type Severity Reaction Status Date / Time No Known Allergies Allergy Verified 11/08/22 19:38 Home Meds Home Medications Medication Instructions Recorded Confirmed glucosamine sulf dipot 1 cap PO BID 02/21/19 11/08/22 chlr,msm,chond 550 mg-C 30 mg-erum 1 mg capsule (Glucosamine Chondroitin) nitroglycerin 0.4 mg sublingual 0.4 mg sublingual DIRECTED PRN 02/21/19 11/08/22 tablet (Nitrostat) Chest Pain omeprazole 20 mg capsule,delayed 20 mg PO BID 02/21/19 11/08/22 release potassium chloride 10 mEq 10 meq PO DAILY 02/21/19 11/08/22 tablet,extended release(part/cryst) (Klor-Con M) cholecalciferol (vitamin D3) 25 1,000 mcg PO DAILY 01/08/21 11/08/22 mcg (1,000 unit) tablet vit C 250 mg-vit E 90 mg-zinc 40 2 tab PO DAILY 10/16/21 11/08/22 mg-copper 1 [id number] capsule (PreserVision AREDS-2) famotidine 20 mg tablet (Pepcid) 20 mg PO BID 03/17/22 11/08/22 prednisone 5 mg tablet 5 mg PO BID 03/17/22 11/08/22 acetaminophen 325 mg tablet 650 - 975 mg PO DAILY PRN 03/28/22 11/08/22 (Tylenol) PAIN/FEVER ascorbic acid (vitamin C) 500 mg 1,000 mg PO DAILY 03/28/22 11/08/22 tablet (Vitamin C) hydrocortisone 2.5 % topical cream 1 applic topical DAILY PRN 03/28/22 11/08/22 UNDERARMS FOR FLARE UPS albuterol sulfate 90 mcg/actuation 1 inh inhalation Q6H PRN Shortness 07/04/22 11/08/22 aerosol inhaler (Ventolin HFA) Of Breath Or Wheezing amiodarone 200 mg tablet 200 mg PO DAILY 07/04/22 11/08/22 loratadine 10 mg tablet (Claritin) 10 mg PO DAILY 07/04/22 11/08/22 aspirin 81 mg chewable tablet 81 mg PO DAILY 10/15/22 11/08/22 glipizide 5 mg tablet 2.5 mg PO DAILY 10/15/22 11/08/22 tacrolimus 0.1 % topical ointment 1 applic topical BID PRN FLARES OF 10/15/22 11/08/22 PSORIASIS tamsulosin 0.4 mg capsule (Flomax) 0.4 mg PO DAILY 10/15/22 11/08/22 warfarin 5 mg tablet See Rx Instructions .Route .COMPLEX 10/15/22 11/08/22 atorvastatin 40 mg tablet (Lipitor) 40 mg PO PM 10/27/22 11/08/22 metronidazole 500 mg tablet 500 mg PO TID 10/27/22 11/08/22 fluticasone propionate 50 2 spray intranasal BID 11/05/22 11/08/22 mcg/actuation nasal spray,suspension psyllium husk 0.52 gram capsule 0.52 g PO BID 11/05/22 11/08/22 torsemide 20 mg tablet 20 mg PO QAM 11/05/22 11/08/22 Previous Rx's Medication Instructions Recorded losartan 25 mg tablet 25 mg PO QAM 30 days #30 tabs 10/29/22 metoprolol succinate 25 mg 25 mg PO BID 30 days #60 tabs 10/29/22 tablet,extended release 24 hr Results & Data (ED) Vital Signs Vital Signs - 24 hr 11/08/22 18:13 11/08/22 18:13 11/08/22 18:36 Temperature 36.6 C Temperature Source Oral Pulse Rate 78 Pulse Rate [Apical] Pulse Rate from SpO2 Sensor Pulse Rhythm [Apical] Pulse Strength [Apical] Respiratory Rate 18 Respiratory Effort / Characteristics Respiratory Depth Respiratory Pattern Blood Pressure 138/69 Blood Pressure [Right Arm] Blood Pressure Mean 92 Blood Pressure Mean [Right Arm] Blood Pressure Position [Right Arm] Pulse Oximetry 97 95 Oxygen Delivery Method Room Air Room Air Room Air Oxygen Flow Rate Sepsis Recent Fever Within 48 Hours No Sepsis New/Unexplained Change in Mental Status No Sepsis Action Taken by Nursing No Action Required 11/08/22 19:00 11/08/22 19:00 11/08/22 20:00 Temperature Temperature Source Pulse Rate 68 Pulse Rate [Apical] 61 Pulse Rate from SpO2 Sensor 68 Pulse Rhythm [Apical] Regular Pulse Strength [Apical] Normal Respiratory Rate 20 Respiratory Effort / Characteristics Non-Labored Respiratory Depth Normal Respiratory Pattern Regular Blood Pressure 144/85 H Blood Pressure [Right Arm] 144/66 H Blood Pressure Mean 104 Blood Pressure Mean [Right Arm] 92 Blood Pressure Position [Right Arm] Lying Pulse Oximetry 95 97 Oxygen Delivery Method Room Air Nasal Cannula Oxygen Flow Rate 2 Sepsis Recent Fever Within 48 Hours Sepsis New/Unexplained Change in Mental Status Sepsis Action Taken by Nursing 11/08/22 20:10 11/08/22 20:11 11/08/22 20:33 Temperature Temperature Source Pulse Rate Pulse Rate [Apical] 60 63 Pulse Rate from SpO2 Sensor Pulse Rhythm [Apical] Regular Regular Pulse Strength [Apical] Normal Normal Respiratory Rate 22 18 20 Respiratory Effort / Characteristics Non-Labored Non-Labored Non-Labored Respiratory Depth Normal Normal Respiratory Pattern Regular Regular Blood Pressure Blood Pressure [Right Arm] Blood Pressure Mean Blood Pressure Mean [Right Arm] Blood Pressure Position [Right Arm] Pulse Oximetry 80 L 97 97 Oxygen Delivery Method Room Air Nasal Cannula Nasal Cannula Oxygen Flow Rate 2 2 Sepsis Recent Fever Within 48 Hours Sepsis New/Unexplained Change in Mental Status Sepsis Action Taken by Nursing 11/08/22 20:33 11/08/22 22:00 Temperature Temperature Source Pulse Rate Pulse Rate [Apical] 67 Pulse Rate from SpO2 Sensor Pulse Rhythm [Apical] Regular Pulse Strength [Apical] Normal Respiratory Rate 22 Respiratory Effort / Characteristics Non-Labored Respiratory Depth Normal Respiratory Pattern Regular Blood Pressure Blood Pressure [Right Arm] 159/86 H Blood Pressure Mean Blood Pressure Mean [Right Arm] 110 Blood Pressure Position [Right Arm] Pulse Oximetry 98 Oxygen Delivery Method Nasal Cannula Nasal Cannula Oxygen Flow Rate 2 2 Sepsis Recent Fever Within 48 Hours Sepsis New/Unexplained Change in Mental Status Sepsis Action Taken by Nursing Laboratory Data 11/08/22 18:30 11/08/22 18:30 Lab Results 11/08/22 11/08/2211/08/23 Range/Units 18:30 18:30 18:30 WBC 7.09 (4.8-10.8) K/ul RBC 4.26 L (4.70-6.10) M/uL Hgb 13.0 L (14.0-18.0) g/dl Hct 38.0 L (42.0-52.0) % MCV 89.2 (80.0-100.0) fL MCH 30.5 (25.0-34.0) pg MCHC 34.2 (32.0-36.0) g/dL RDW Std Deviation 49.2 H (36.4-46.3) fL RDW Coeff of Bradly 15.2 H (11.5-14.5) % Plt Count 149 (130-400) K/uL MPV 9.1 L (9.4-12.4) fL Immature Gran % (Auto) 0.7 % Neut % (Auto) 84.3 % Lymph % (Auto) 6.9 % Lucas % (Auto) 7.9 % Eos % (Auto) 0.1 % Baso % (Auto) 0.1 % Neut # (Auto) 5.97 (1.40-6.50) K/uL Lymph # (Auto) 0.49 L (1.2-3.4) K/uL Lucas # (Auto) 0.56 (0.11-0.59) K/uL Eos # (Auto) 0.01 (0-0.50) K/uL Baso # (Auto) 0.01 (0-0.2) K/uL Immature Gran # (Auto) 0.05 (0.01-0.20) K/uL PT 57.6 H (9.0-12.0) Seconds INR 6.0 H* (0.9-1.1) APTT 48.5 H* (21.0-31.0) Seconds PTT Ratio 1.8 ABG pH (7.35-7.45) ABG pCO2 (35-46) mmHg ABG pO2 (80-95) mmHg ABG HCO3 (19-24) mmol/L ABG O2 Saturation (90-95) % ABG Base Excess (-9-1.8) mEq/L Giovanni Test (Pos) Oxygen Given Sodium 132 L (136-145) mmol/L Potassium 3.8 (3.5-5.1) mmol/L Chloride 94 L (98-107) mmol/L Carbon Dioxide 29 (21-32) mmol/L Anion Gap 9 (3-11) BUN 35 H (6-23) mg/dl Creatinine 1.25 (0.6-1.4) mg/dl Est Cr Clr Drug Dosing 52.7 ml/min Est GFR ( Amer) 61.8 ml/min Est GFR (Non-Af Amer) 53.3 ml/min BUN/Creatinine Ratio 28.0 H (10-20) Glucose 324 H* (70-99(Fasting)) mg/dl Calcium 9.0 (8.5-10.1) mg/dl Magnesium 2.2 (1.7-2.4) mg/dl Total Bilirubin 0.9 (0.2-1.0) mg/dl AST 31 (13-39) U/L ALT 29 (7-52) U/L Alkaline Phosphatase 283 H (34-104) U/L Troponin I High Sens 20.0 (0-20) pg/ml B-Natriuretic Peptide (0-100) pg/ml Total Protein 6.6 (6.0-8.3) gm/dl Albumin 4.1 (3.4-5.0) gm/dl Globulin 2.5 (2.5-4.0) gm/dl Albumin/Globulin Ratio 1.6 (0.9-2) SARS-CoV-2 (PCR) (Negative) Influenza Type A (PCR) (Neg) Influenza Type B (PCR) (Neg) RSV (RT-PCR) (Neg) 11/08/22 11/08/22 11/08/22 Range/Units 19:00 20:31 21:32 WBC (4.8-10.8) K/ul RBC (4.70-6.10) M/uL Hgb (14.0-18.0) g/dl Hct (42.0-52.0) % MCV (80.0-100.0) fL MCH (25.0-34.0) pg MCHC (32.0-36.0) g/dL RDW Std Deviation (36.4-46.3) fL RDW Coeff of Bradly (11.5-14.5) % Plt Count (130-400) K/uL MPV (9.4-12.4) fL Immature Gran % (Auto) % Neut % (Auto) % Lymph % (Auto) % Lucas % (Auto) % Eos % (Auto) % Baso % (Auto) % Neut # (Auto) (1.40-6.50) K/uL Lymph # (Auto) (1.2-3.4) K/uL Lucas # (Auto) (0.11-0.59) K/uL Eos # (Auto) (0-0.50) K/uL Baso # (Auto) (0-0.2) K/uL Immature Gran # (Auto) (0.01-0.20) K/uL PT (9.0-12.0) Seconds INR (0.9-1.1) APTT (21.0-31.0) Seconds PTT Ratio ABG pH 7.47 H (7.35-7.45) ABG pCO2 42 (35-46) mmHg ABG pO2 41 L (80-95) mmHg ABG HCO3 31 H (19-24) mmol/L ABG O2 Saturation 70.2 L (90-95) % ABG Base Excess 6.2 H (-9-1.8) mEq/L Giovanni Test Pos (Pos) Oxygen Given 2 L Sodium (136-145) mmol/L Potassium (3.5-5.1) mmol/L Chloride (98-107) mmol/L Carbon Dioxide (21-32) mmol/L Anion Gap (3-11) BUN (6-23) mg/dl Creatinine (0.6-1.4) mg/dl Est Cr Clr Drug Dosing ml/min Est GFR ( Amer) ml/min Est GFR (Non-Af Amer) ml/min BUN/Creatinine Ratio (10-20) Glucose (70-99(Fasting)) mg/dl Calcium (8.5-10.1) mg/dl Magnesium (1.7-2.4) mg/dl Total Bilirubin (0.2-1.0) mg/dl AST (13-39) U/L ALT (7-52) U/L Alkaline Phosphatase (34-104) U/L Troponin I High Sens (0-20) pg/ml B-Natriuretic Peptide 46 (0-100) pg/ml Total Protein (6.0-8.3) gm/dl Albumin (3.4-5.0) gm/dl Globulin (2.5-4.0) gm/dl Albumin/Globulin Ratio (0.9-2) SARS-CoV-2 (PCR) NEGATIVE (Negative) Influenza Type A (PCR) Negative (Neg) Influenza Type B (PCR) Negative (Neg) RSV (RT-PCR) Negative (Neg) Imaging Data Radiologist's Impression: Chest X-Ray 11/08/22 18:35 XR chest 1V portable HISTORY: 81 years-old Male SOB acute shortness of breath with chest pain COMPARISON: Chest radiograph November 05, 2022, CTA chest 10/27/2022. TECHNIQUE: AP view the chest FINDINGS: Cardiomediastinal and hilar silhouettes are unchanged. Hilar lymphadenopathy redemonstrated along with multifocal pulmonary metastasis. Osseous metastatic disease better seen on the comparison chest CT. Left subclavian pacer. Prior median sternotomy. Mild chronic interstitial coarsening of the lung bases. And pneumothorax. Unchanged mild blunting of the costophrenic angles. IMPRESSION: 1. No acute processes of the chest. 2. Metastatic disease of the chest including gregory, pulmonary and osseous disease is better evaluated on the chest CT from 10/27/2022. ACT 112: Negative or not required by law. The above report was generated using voice recognition software. It may contain grammatical, syntax or spelling errors. Electronically signed by: Layo Hooks M.D. 11/08/2022 6:55 PM Discharge Plan Visit Data Chief Complaint: Shortness of Breath/Dyspnea Stated Complaint: SOB W/ EXERTION ED Provider: Fredy Hopkins Discharge Problem: Hypoxia Patient Disposition: Admitted As Inpatient Forms Stand Alone Forms: [facility] Prescriptions Prescriptions: No Action omeprazole 20 mg capsule,delayed release(DR/EC) 20 mg PO BID potassium chloride [Klor-Con M10] 10 mEq tablet,ER particles/crystals 10 meq PO DAILY Glucosamine Chondroitin 550-30-1 mg Capsule 1 cap PO BID nitroglycerin [Nitrostat] 0.4 mg Tablet, Sublingual 0.4 mg sublingual DIRECTED PRN (Reason: Chest Pain) Rx Instructions: NEEDED FOR CHEST PAIN : ONE TABLET UNDER THE TONGUE EVERY 5 MINUTES UP TO 3 DOSES. cholecalciferol (vitamin D3) 25 mcg (1,000 unit) Tablet 1,000 mcg PO DAILY amiodarone 200 mg tablet 200 mg PO DAILY loratadine [Claritin] 10 mg Tablet 10 mg PO DAILY albuterol sulfate [Ventolin HFA] 90 mcg/actuation Hfa Aerosol Inhaler 1 inh INHALATION Q6H PRN (Reason: Shortness Of Breath Or Wheezing) atorvastatin [Lipitor] 40 mg Tablet 40 mg PO PM metronidazole 500 mg tablet 500 mg PO TID Rx Instructions: STARTED 11/02/22 FOR 7 DAYS losartan 25 mg Tablet 25 mg PO QAM 30 Days Qty: 30 2RF Rx Instructions: PER [facility]--NOT ON MED LIST, PER EXT MED HX--ORDERED 10/29/22 FOR 30 DAYS/30 PILLS. metoprolol succinate 25 mg Tablet Extended Release 24 Hr 25 mg PO BID 30 Days Qty: 60 2RF torsemide 20 mg tablet 20 mg PO QAM fluticasone propionate [Flonase] 50 mcg/actuation [place],Suspension 2 spray INTRANASAL BID Rx Instructions: administer into each nostril psyllium husk [Metamucil] 0.52 gram Capsule 0.52 g PO BID PreserVision AREDS-2 250-90-40-1 mg Capsule 2 tab PO DAILY prednisone 5 mg tablet 5 mg PO BID famotidine [Pepcid] 20 mg tablet 20 mg PO BID acetaminophen [Tylenol] 325 mg Tablet 650 - 975 mg PO DAILY PRN (Reason: PAIN/FEVER) ascorbic acid (vitamin C) [Vitamin C] 500 mg Tablet 1,000 mg PO DAILY hydrocortisone 2.5 % Cream 1 applic TOPICAL DAILY PRN (Reason: UNDERARMS FOR FLARE UPS) tamsulosin [Flomax] 0.4 mg Capsule 0.4 mg PO DAILY tacrolimus 0.1 % Ointment 1 applic TOPICAL BID PRN (Reason: FLARES OF PSORIASIS) warfarin 5 mg tablet See Rx Instructions .ROUTE .COMPLEX Rx Instructions: DUE FOR INR ON 11/09/22. CURRENTLY TAKES 5 MG ON SUN, TUES, THURS & SAT. THEN TAKES 7.5 MG ON MON, WED, & FRI. aspirin 81 mg Tablet,Chewable 81 mg PO DAILY glipizide 5 mg Tablet 2.5 mg PO DAILY Referrals Referrals: Jones Estrada MD [Primary Care Provider] -
--- NOTE | 2022-11-08 18:57 | XRay Report ---
XR chest 1V portable HISTORY: 81 years-old Male SOB acute shortness of breath with chest pain COMPARISON: Chest radiograph November 05, 2022, CTA chest 10/27/2022. TECHNIQUE: AP view the chest FINDINGS: Cardiomediastinal and hilar silhouettes are unchanged. Hilar lymphadenopathy redemonstrated along wit h multifocal pulmonary metastasis. Osseous metastatic disease better seen on the comparison chest CT. Left subclavian pacer. Prior median sternotomy. Mild chronic interstitial coarsening of the lung bas es. And pneumothorax. Unchanged mild blunting of the costophrenic angles. IMPRESSION: 1. No acute processes of the chest. 2. Metastatic disease of the chest including gregory, pulmonary and osseous disease is better evaluated on the chest CT from 10/27/2022. ACT 112: Negative or not required by law. The above report was generated using voice recognition software. It may contain grammatical, syntax o r spelling errors. Electronically signed by: Layo Hooks M.D. 11/08/2022 6:55 PM
[2022-11-08 19:12] LABS: Albumin Globulin Ratio 1.6 (0.9-2); Albumin Level 4.1 gm/dl (3.4-5.0); Bilirubin,Total 0.9 mg/dl (0.2-1.0); Creatinine Clr Calc Pharmacy 52.7 ml/min; Est GFR (African American) 61.8 ml/min; Est GFR (Non-African American) 53.3 ml/min; Globulin 2.5 gm/dl (2.5-4.0); Magnesium 2.2 mg/dl (1.7-2.4); Potassium 3.8 mmol/L (3.5-5.1); Total Protein 6.6 gm/dl (6.0-8.3)
[2022-11-08 19:36] LABS: Partial Thromboplastin Ratio 1.8; Prothrombin Time 57.6 Seconds (9.0-12.0)
[2022-11-08 19:51] LABS: Partial Thromboplastin Time 48.5 Seconds (21.0-31.0)
[2022-11-08 21:11] LABS: Influenza A virus by PCR Negative (Neg); Influenza B virus by PCR Negative (Neg); RSV by PCR Negative (Neg); SARS CoV2 RNA(COVID-19) Ceph NEGATIVE (Negative)
[2022-11-08 22:15] LABS: Base Excess ABG 6.2 mEq/L (-9-1.8); HCO3 ABG 31 mmol/L (19-24); Oxygen Saturation ABG 70.2 % (90-95); PCO2 ABG 42 mmHg (35-46); PO2 ABG 41 mmHg (80-95); pH ABG 7.47 (7.35-7.45)
[2022-11-08 22:19] LABS: Allen Test Pos (Pos)
--- NOTE | 2022-11-09 00:21 | History & Physical Report ---
Date of Service November 09, 2022 Assessment & Plan (1) Acute hypoxemic respiratory failure: Plan: Documented PO2 of 41 on today's ABG Underlying restrictive lung disease/AL on CPAP/pulmonary hypertension as per records Multifactorial : Enlarging pulmonary/mediastinal mets on imaging, hx metastatic prostate cancer status post radiation status post Lupron on prednisone, patient Zytiga chemotherapy on hold due to cardiotoxicity deconditioning following recent heart surgery, history severe status post TAVR Chronic systolic heart failure (EF 35%, TTE 2022), ischemic cardiomyopathy, patient slightly on the dry side History CAD status post CABG status post stent/hx PVD as per records hyperlipidemia on statin Rx SSS sp PPM, hx PE/DVT as per records, supratherapeutic INR DM2 on oral medications, suboptimal control as of recent hemoglobin A1c of 7.6 last October 2022 chronic anemia, hemoglobin better at baseline past tobacco abuse Medical telemetry Home O2 Outpatient follow-up with patient [facility] oncologist Basal bolus insulin, ISS BG goal [id number], carb count coverage PT OT eval DVT prophylaxis. Coumadin (INR goal between 2 and 3) Full code Patient's requesting updates for providers. Ms. Lucinda Lopez, contact #[phone]. Text document was generated using [employer] voice recognition software. It may contain grammatical or spelling errors. Kindly contact undersigned for clarification of any documentation item in question. History of Present Illness Chief Complaint: Worsening shortness of breath Primary Care Provider: Jones Estrada MD History obtained from patient, family, and records. Medical history significant for chronic systolic heart failure (EF 35-40%, TTE 2022) secondary ischemic cardiomyopathy, CAD status post CABG status post stent/hx PVD as per records, SSS status post PPM/ hx PE/DVT as per records on Coumadin, severe status post TAVR, hyperlipidemia on statin Rx, pulmonary hypertension, AL on CPAP, DM2 on oral medications, metastatic prostate cancer status post radiation sp Lupron status post chemotherapy, chronic anemia (baseline hemoglobin 11-12), past tobacco abuse. Last confinement October 28-2022 for shortness of breath on exertion attributed to increasing size of pulmonary nodules (prostate cancer mets) and deconditioning post TAVR at [facility]. Two-step exercise test O2 sats 94% on exertion, greater than 90% at rest. Patient did not qualify for home O2. Patient discharged home. Outpatient cardiac rehab recommended. Patient still with exertional SOB upon return home. Symptoms leading to fall 3 days ago. Patient seen at the ER but subsequently sent home. O2 sats 70s at home the last few days as per /family. Patient denies chest pain, cough symptoms, fluid retention. Patient directed to ER by outpatient providers. O2 sats noted to be 80s at the ER. 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 Allergies Allergy/AdvReac Type Severity Reaction Status Date / Time No Known Allergies Allergy Verified 11/08/22 19:38 Home Medications Medication Instructions Recorded Confirmed Type glucosamine sulf dipot 1 cap PO BID 02/21/19 11/08/22 History chlr,msm,chond 550 mg-C 30 mg-erum 1 mg capsule (Glucosamine Chondroitin) nitroglycerin 0.4 mg sublingual 0.4 mg sublingual DIRECTED PRN 02/21/19 11/08/22 History tablet (Nitrostat) Chest Pain omeprazole 20 mg capsule,delayed 20 mg PO BID 02/21/19 11/08/22 History release potassium chloride 10 mEq 10 meq PO DAILY 02/21/19 11/08/22 History tablet,extended release(part/cryst) (Klor-Con M) cholecalciferol (vitamin D3) 25 1,000 mcg PO DAILY 01/08/21 11/08/22 History mcg (1,000 unit) tablet vit C 250 mg-vit E 90 mg-zinc 40 2 tab PO DAILY 10/16/21 11/08/22 History mg-copper 1 [id number] capsule (PreserVision AREDS-2) famotidine 20 mg tablet (Pepcid) 20 mg PO BID 03/17/22 11/08/22 History prednisone 5 mg tablet 5 mg PO BID 03/17/22 11/08/22 History acetaminophen 325 mg tablet 650 - 975 mg PO DAILY PRN 03/28/22 11/08/22 History (Tylenol) PAIN/FEVER ascorbic acid (vitamin C) 500 mg 1,000 mg PO DAILY 03/28/22 11/08/22 History tablet (Vitamin C) hydrocortisone 2.5 % topical cream 1 applic topical DAILY PRN 03/28/22 11/08/22 History UNDERARMS FOR FLARE UPS albuterol sulfate 90 mcg/actuation 1 inh inhalation Q6H PRN Shortness 07/04/22 11/08/22 History aerosol inhaler (Ventolin HFA) Of Breath Or Wheezing amiodarone 200 mg tablet 200 mg PO DAILY 07/04/22 11/08/22 History loratadine 10 mg tablet (Claritin) 10 mg PO DAILY 07/04/22 11/08/22 History aspirin 81 mg chewable tablet 81 mg PO DAILY 10/15/22 11/08/22 History glipizide 5 mg tablet 2.5 mg PO DAILY 10/15/22 11/08/22 History tacrolimus 0.1 % topical ointment 1 applic topical BID PRN FLARES OF 10/15/22 11/08/22 History PSORIASIS tamsulosin 0.4 mg capsule (Flomax) 0.4 mg PO DAILY 10/15/22 11/08/22 History warfarin 5 mg tablet See Rx Instructions .Route .COMPLEX 10/15/22 11/08/22 History atorvastatin 40 mg tablet (Lipitor) 40 mg PO PM 10/27/22 11/08/22 History metronidazole 500 mg tablet 500 mg PO TID 10/27/22 11/08/22 History losartan 25 mg tablet 25 mg PO QAM 30 days #30 tabs 10/29/22 11/08/22 Rx metoprolol succinate 25 mg 25 mg PO BID 30 days #60 tabs 10/29/22 11/08/22 Rx tablet,extended release 24 hr fluticasone propionate 50 2 spray intranasal BID 11/05/22 11/08/22 History mcg/actuation nasal spray,suspension psyllium husk 0.52 gram capsule 0.52 g PO BID 11/05/22 11/08/22 History torsemide 20 mg tablet 20 mg PO QAM 11/05/22 11/08/22 History Past Med/Surg History Medical History Aortic stenosis Asthma Atrial fibrillation with RVR CAD (coronary artery disease) Status post PCI with a BMS to the mid LAD on 05/16/2016. 2.May 26, 2016 diagnostic cardiac catheterization at [facility], Dr. 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 Also, far beyond the stent, there was visible healed dissection flap, Type B, non- obstructive. 3.Status post CABG x 1 with a ABRAMS to LAD for persistent angina, May 2016. 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 Surgical History H/O esophagogastroduodenoscopy Hx of total knee arthroplasty S/P CABG x 1 S/P cholecystectomy S/P hip replacement S/P knee replacement Family History Other Diabetes Heart disease Social History Smoking Status: Former smoker Tobacco Type: Cigarettes Cigarettes Per Day: 40; Second Hand Exposure: No; Hx Alcohol Use: No Hx Substance Use: No Preferred Language: Bulgarian Communication Ability: Effective Visual Impairment: No Limitations Hearing Ability: Normal Beater And Pulper Feeder Required: No Beliefs That Will Affect Care: None marital status: Current Living Situation: Spouse Current Living Situation Comment: Home with Feels Safe at Home: Yes Safety Concerns: Feels Safe At This Time Assistive Devices: Cane and CPAP Review of Systems Review of Systems: As per HPI, all other systems reviewed and negative Physical Exam Physical Exam: GENERAL: Comfortable, pleasant, obese, no respiratory distress SKIN: Pallor, warm HEENT: Alopecia, pale palpebral conjunctivae, no ptosis, dry buccal mucosa, nasal cannula in place NECK : Supple, short neck, no tenderness CHEST : Decreased breath sounds, no tenderness HEART : RRR, systolic murmur ABDOMEN: Some distention, nontender EXTREMITIES : Minimal LE swelling, no LE tenderness, no other conspicuous deformities noted NEUROLOGIC : Coherent, no facial asymmetry, no other gross focality Results & Data Results & Data ([facility]) Vital Signs (Past 12 Hours) Vital Signs Temp Pulse Pulse Resp BP BP Pulse Ox 11/09/22 00:00 62 20 146/68 H 97 11/08/22 22:00 67 22 159/86 H 98 11/08/22 20:33 11/08/22 20:33 20 97 11/08/22 20:11 63 18 97 11/08/22 20:10 60 22 80 L 11/08/22 20:00 61 20 144/66 H 97 11/08/22 19:00 68 95 11/08/22 19:00 144/85 H 11/08/22 18:36 95 11/08/22 18:13 11/08/22 18:13 36.6 C 78 18 138/69 97 O2 Del Method O2 Flow Rate 11/09/22 00:00 Nasal Cannula 2 11/08/22 22:00 Nasal Cannula 2 11/08/22 20:33 Nasal Cannula 2 11/08/22 20:33 Nasal Cannula 2 11/08/22 20:11 Nasal Cannula 2 11/08/22 20:10 Room Air 11/08/22 20:00 Nasal Cannula 2 11/08/22 19:00 Room Air 11/08/22 19:00 11/08/22 18:36 Room Air 11/08/22 18:13 Room Air 11/08/22 18:13 Room Air Laboratory Results Laboratory Results WBC 7.09 K/ul (4.8-10.8) 11/08/22 18:30 RBC 4.26 M/uL (4.70-6.10) L 11/08/22 18:30 Hgb 13.0 g/dl (14.0-18.0) L 11/08/22 18:30 Hct 38.0 % (42.0-52.0) L 11/08/22 18:30 MCV 89.2 fL (80.0-100.0) 11/08/22 18:30 MCH 30.5 pg (25.0-34.0) 11/08/22 18:30 MCHC 34.2 g/dL (32.0-36.0) 11/08/22 18:30 RDW Std Deviation 49.2 fL (36.4-46.3) H 11/08/22 18:30 RDW Coeff of Bradly 15.2 % (11.5-14.5) H 11/08/22 18:30 Plt Count 149 K/uL (130-400) 11/08/22 18:30 MPV 9.1 fL (9.4-12.4) L 11/08/22 18:30 Immature Gran % (Auto) 0.7 % 11/08/22 18:30 Neut % (Auto) 84.3 % 11/08/22 18:30 Lymph % (Auto) 6.9 % 11/08/22 18:30 Bryan % (Auto) 7.9 % 11/08/22 18:30 Eos % (Auto) 0.1 % 11/08/22 18:30 Baso % (Auto) 0.1 % 11/08/22 18:30 Neut # (Auto) 5.97 K/uL (1.40-6.50) 11/08/22 18:30 Lymph # (Auto) 0.49 K/uL (1.2-3.4) L 11/08/22 18:30 Bryan # (Auto) 0.56 K/uL (0.11-0.59) 11/08/22 18:30 Eos # (Auto) 0.01 K/uL (0-0.50) 11/08/22 18:30 Baso # (Auto) 0.01 K/uL (0-0.2) 11/08/22 18:30 Immature Gran # (Auto) 0.05 K/uL (0.01-0.20) 11/08/22 18:30 PT 57.6 Seconds (9.0-12.0) H 11/08/22 18:30 INR 6.0 (0.9-1.1) H* 11/08/22 18:30 APTT 48.5 Seconds (21.0-31.0) H* 11/08/22 18:30 PTT Ratio 1.8 11/08/22 18:30 ABG pH 7.47 (7.35-7.45) H 11/08/22 21:32 ABG pCO2 42 mmHg (35-46) 11/08/22 21:32 ABG pO2 41 mmHg (80-95) L 11/08/22 21:32 ABG HCO3 31 mmol/L (19-24) H 11/08/22 21:32 ABG O2 Saturation 70.2 % (90-95) L 11/08/22 21:32 ABG Base Excess 6.2 mEq/L (-9-1.8) H 11/08/22 21:32 Giovanni Test Pos (Pos) 11/08/22 21:32 Oxygen Given 2 L 11/08/22 21:32 Sodium 132 mmol/L (136-145) L 11/08/22 18:30 Potassium 3.8 mmol/L (3.5-5.1) 11/08/22 18:30 Chloride 94 mmol/L (98-107) L 11/08/22 18:30 Carbon Dioxide 29 mmol/L (21-32) 11/08/22 18:30 Anion Gap 9 (3-11) 11/08/22 18:30 BUN 35 mg/dl (6-23) H 11/08/22 18:30 Creatinine 1.25 mg/dl (0.6-1.4) 11/08/22 18:30 Est Cr Clr Drug Dosing 52.7 ml/min 11/08/22 18:30 Est GFR ( Amer) 61.8 ml/min 11/08/22 18:30 Est GFR (Non-Af Amer) 53.3 ml/min 11/08/22 18:30 BUN/Creatinine Ratio 28.0 (10-20) H 11/08/22 18:30 Glucose 324 mg/dl (70-99(Fasting)) H* 11/08/22 18:30 Calcium 9.0 mg/dl (8.5-10.1) 11/08/22 18:30 Magnesium 2.2 mg/dl (1.7-2.4) 11/08/22 18:30 Total Bilirubin 0.9 mg/dl (0.2-1.0) 11/08/22 18:30 AST 31 U/L (13-39) 11/08/22 18:30 ALT 29 U/L (7-52) 11/08/22 18:30 Alkaline Phosphatase 283 U/L (34-104) H 11/08/22 18:30 Troponin I High Sens 20.0 pg/ml (0-20) 11/08/22 18:30 B-Natriuretic Peptide 46 pg/ml (0-100) 11/08/22 19:00 Total Protein 6.6 gm/dl (6.0-8.3) 11/08/22 18:30 Albumin 4.1 gm/dl (3.4-5.0) 11/08/22 18:30 Globulin 2.5 gm/dl (2.5-4.0) 11/08/22 18:30 Albumin/Globulin Ratio 1.6 (0.9-2) 11/08/22 18:30 SARS-CoV-2 (PCR) NEGATIVE (Negative) 11/08/22 20:31 Influenza Type A (PCR) Negative (Neg) 11/08/22 20:31 Influenza Type B (PCR) Negative (Neg) 11/08/22 20:31 RSV (RT-PCR) Negative (Neg) 11/08/22 20:31 Impressions Chest X-Ray 11/08/22 18:35 XR chest 1V portable HISTORY: 81 years-old Male SOB acute shortness of breath with chest pain COMPARISON: Chest radiograph November 05, 2022, CTA chest 10/27/2022. TECHNIQUE: AP view the chest FINDINGS: Cardiomediastinal and hilar silhouettes are unchanged. Hilar lymphadenopathy redemonstrated along with multifocal pulmonary metastasis. Osseous metastatic disease better seen on the comparison chest CT. Left subclavian pacer. Prior median sternotomy. Mild chronic interstitial coarsening of the lung bases. And pneumothorax. Unchanged mild blunting of the costophrenic angles. IMPRESSION: 1. No acute processes of the chest. 2. Metastatic disease of the chest including gregory, pulmonary and osseous disease is better evaluated on the chest CT from 10/27/2022. ACT 112: Negative or not required by law. The above report was generated using voice recognition software. It may contain grammatical, syntax or spelling errors. Electronically signed by: Layo Hooks M.D. 11/08/2022 6:55 PM Diagnostic Findings EKG as per my interpretation : Rate 60, paced rhythm
[2022-11-09] MEDS ORDERED: LANTUS PER UNIT CHARGE SQ STA (00:29)
[2022-11-09] MEDS ORDERED: ALBUMIN 25% 100 mL 25 GM/100 ML VIAL IV ONE (00:29)
[2022-11-09] MEDS ORDERED: GLUCAGON FOR INJ 1 MG VIAL SQ PRN (01:45)
[2022-11-09] MEDS ORDERED: DEXTROSE 50% 50 ML SYRINGE IV PRN (01:45)
[2022-11-09] MEDS ORDERED: GLUCOSE 10 TAB/TUBE PO PRN (01:45)
[2022-11-09] MEDS ORDERED: ACETAMINOPHEN 325 MG TAB PO PRN (01:45)
[2022-11-09] MEDS ORDERED: ALBUTEROL HFA 8 GM INHALER INH PRN (01:45)
[2022-11-09] MEDS ORDERED: GLUCOSE 40% GEL 15 GM TUBE PO PRN (01:45)
[2022-11-09] MEDS ORDERED: CARBOHYDRATES FOR HYPOGLYCEMIA PO PRN (01:45)
[2022-11-09] MEDS: INSULIN ASPART PER UNIT SC SCH ×5 (03:05→22:13)
[2022-11-09] MEDS: METOPROLOL SUCC 25MG EXT REL TAB PO SCH ×3 (03:07→21:49)
[2022-11-09 06:47] LABS: Basophils # (auto) 0.01 K/uL (0-0.2); Basophils % (auto) 0.2 %; Eosinophils # (auto) 0.02 K/uL (0-0.50); Eosinophils % (auto) 0.4 %; Hematocrit (blood only) 31.8 % (42.0-52.0); Immature Granulocytes # (auto) 0.05 K/uL (0.01-0.20); Lymphocytes # (auto) 0.92 K/uL (1.2-3.4); Lymphocytes % (auto) 17.6 %; Mean Corpuscular Hemoglobin 30.6 pg (25.0-34.0); Mean Corpuscular Hgb Conc 34.6 g/dL (32.0-36.0); Mean Corpuscular Volume 88.6 fL (80.0-100.0); Mean Platelet Volume 9.1 fL (9.4-12.4); Monocytes # (auto) 0.52 K/uL (0.11-0.59); Monocytes % (auto) 9.9 %; Neutrophils # (auto) 3.71 K/uL (1.40-6.50); Neutrophils % (auto) 70.9 %; Platelet Count 114 K/uL (130-400); RDW Coefficient of Variation 14.8 % (11.5-14.5); RDW Standard Deviation 47.8 fL (36.4-46.3); Red Blood Count 3.59 M/uL (4.70-6.10); White Blood Count 5.23 K/ul (4.8-10.8)
[2022-11-09 07:03] LABS: BUN Creatinine Ratio 32.6 (10-20); Creatinine Clr Calc Pharmacy 69.1 ml/min; Est GFR (African American) 86.1 ml/min; Est GFR (Non-African American) 74.2 ml/min
[2022-11-09 07:35] LABS: Prothrombin Time 73.6 Seconds (9.0-12.0)
[2022-11-09 07:40] LABS: INR 7.7 (0.9-1.1)
[2022-11-09] MEDS ORDERED: ASPIRIN 81 MG CHEW PO SCH (09:00)
[2022-11-09] MEDS: LORATADINE 10 MG TAB PO SCH (09:04)
[2022-11-09] MEDS: FAMOTIDINE 20 MG TAB PO SCH ×2 (09:04→21:48)
[2022-11-09] MEDS: AMIODARONE 200 MG TAB PO SCH (09:04)
[2022-11-09] MEDS: LOSARTAN POTASSIUM 25 MG TAB PO SCH (09:04)
[2022-11-09] MEDS: predniSONE 5 MG TAB PO SCH ×2 (09:04→17:18)
[2022-11-09] MEDS: POTASSIUM CHLORIDE 10 MEQ TABCR PO SCH (09:05)
[2022-11-09] MEDS: PANTOprazole 40 MG TAB PO SCH ×2 (09:05→21:49)
[2022-11-09] MEDS: TORSEMIDE 20 MG TAB PO SCH (09:05)
[2022-11-09] MEDS: TAMSULOSIN HCL 0.4 MG CAP PO SCH (09:05)
[2022-11-09] MEDS: CEROVITE ADV FORMULA TAB PO SCH (09:05)
[2022-11-09] MEDS: PSYLLIUM or GUAR GUM FIBER POWDER PACKET PO SCH ×2 (09:05→21:54)
--- NOTE | 2022-11-09 09:05 | Electrocardiogram Report ---
Test Reason : Blood Pressure : / mmHG Vent. Rate : 060 BPM Atrial Rate : 060 BPM P-R Int : 258 ms QRS Dur : 194 ms QT Int : 518 ms P-R-T Axes : 091 -79 068 degrees QTc Int : 518 ms Atrial-paced rhythm with prolonged AV conduction Left axis deviation Right bundle branch block Abnormal ECG When compared with ECG of 05-NOV-2022 13:06, No significant change was found Confirmed by True Stevens ([id number]) on 11/09/2022 9:05:06 AM Referred By: REFERRED SELF Confirmed By:Lloyd Stevens
[2022-11-09] MEDS: FLUTICASONE PROPIONATE NA SPR 16 GM BTL SCH ×2 (09:06→21:49)
[2022-11-09] MEDS: POTASSIUM CHLORIDE CRTAB 20 MEQ TABCR PO SCH ×2 (10:13→21:52)
--- NOTE | 2022-11-09 11:31 | Pulmonary Consultation ---
Date of Consultation November 09, 2022 Assessment & Plan (1) Dyspnea on exertion: Pt is a 81 yo male with PMH of aortic stenosis s/p TAVR 10/24/2022, prostate cx w/ lung mets, tachybrady syndrome s/p pacemaker, afib, DM, DVT, HTN, AL, HLD, and heart failure presenting to the hospital by recommendation of his P CP/cardiology due to SOB w/ exertion. GILBERT/SOB w/ hypoxemia - ongoing since before TAVR procedure 10/24, no relief since procedure - last PFTs in 2020 showed mild restrictive physiology attributed to body habitus - CXR upon admission negative for pleural effusions, pulmonary edema Heart failure with reduced ejection fraction - chronic - most recent echo 10/28/2022 showed EF 35-40%, LVH, no aortic valvular stenosis s/p TAVR - no clinical signs of volume overload Prostate cancer w/ mets to lungs - pt explains he has undergone chemo and radiation in the past which kept the cancer "under control" - chest CTA 10/28 showed increased size of pulmonary metastasis and lymphadenopathy w/ left hepatic lobe mass - pt explains that his cancer medication was stopped recently d/t his cardiac concerns/procedures; he has a PET scan scheduled next week Afib s/p pacemaker - per nursing, pt converted from NSR to afib w/ HR in the 120-130s this afternoon - pt sometimes feels fluttering in his chest when these episodes occur but he has felt fine in this regard all day today - per pt's , his pacemaker was interrogated a few weeks ago and adjustments were necessary but pt's is unsure of what needs done. She states that because of his recent surgery and trouble breathing, the pacemaker issue has not been addressed Pt's SOB appears to be multifactorial- relating to his cardiac, pulmonary, and malignancy concerns. Pt does not appear to be volume overloaded or in an active heart failure exacerbation. After reviewing pt's previous CTs, CXRs, and PFTs, there does not appear to be restrictive or obstructive lung disease significant enough to cause the pt's symptoms. Pt's metastatic disease, along w/ deconditioning d/t recent surgical procedure and multiple hospitalizations, is likely a contributing factor as well. Due to this deconditioning, he would benefit most from PT/OT at this time. An interrogation of his pacemaker would also be of use considering his recent issues with the device. A trial of a LAMA medication could be tried but is unlikely to be of any benefit. It was also d iscussed with the pt and his that he will most likely be discharged with home oxygen and this oxygen requirement may be permanent. Please refer to Dr. Morales's addendum for further recommendations. (2) Hypoxemia: (3) Chronic HFrEF (heart failure with reduced ejection fraction): (4) Prostate cancer metastatic to lung: (5) Paroxysmal atrial fibrillation: Plan Diet: heart healthy, carb consistent Fluids: none Consults: OT/PT Supervising Physician Co-Signing Physician Notes Patient seen and examined with resident physician. Agree with the assessment and plan as above. 81-year-old male with a history of systolic CHF, atrial fibrillation, TAVR and metastatic prostate cancer presenting to the hospital due to hypoxia and shortness of breath. The shortness of breath is multifactorial related to his systolic heart failure, anemia, atrial fibrillation burden, deconditioning, age and metastatic prostate cancer. Recommend discussion regarding his goals of care given his numerous medical comorbidities and progressive prostate cancer. I reviewed his CT chest in detail which revealed numerous metastatic pulmonary nodules and bulky hilar and mediastinal lymphadenopathy. There may be some mild compression of a segmental branch of the on the left of the pulmonary artery due to the bulky lymphadenopathy which may also be contributing somewhat to his hypoxemia. I am doubtful of a parenchymal lung disease causing his hypoxemia and dyspnea. I would recommend a pacemaker interrogation and adjustment if required by cardiology. Recommend weaning oxygen to maintain saturations above 90%. I did review his outpatient PFTs which suggested mild restrictive physiology based on the total lung capacity which is a nonspecific finding. However, I do not feel that he has true restrictive lung disease. Recommend follow-up with his outpatient pulmonary provider, Dr. Soto. No further interventions or recommendations at this time. Please call with questions. Thank you for the consult. History of Present Illness Reason for Consultation: hypoxia, unclear etiology Requesting Physician: Wisam Johnson MD Attending Physician: Wisam Johnson MD History of Present Illness Pt is a 81 yo male with PMH of aortic stenosis s/p TAVR 10/24/2022, prostate cx w/ lung mets, tachybrady syndrome s/p pacemaker, afib, DM, DVT, HTN, AL, HLD, and heart failure presenting to the hospital by recommendation of his PCP/cardiology due to SOB w/ exertion. Pt explains that he has had ongoing SOB w/ exertion. It was originally thought that this was due to his aortic stenosis. He underwent a TAVR procedure 10/24/2022 at [facility]. Since the procedure, his SOB has not improved; if anything, it has gotten worse. Pt describes that he becomes SOB with getting out of a chair and walking about 10 feet. He denies any associated symptoms like heart palpitations, diaphoresis, chest pain, lightheadedness, or dizziness. He recovers quickly from these episodes, within 10-30 seconds of rest. Pt endorses that he has been following a low salt diet at home to avoid fluid accumulation related to his heart failure. His appetite has been "on and off" for the last few weeks and pt states he has lost 20 lbs in this time frame. Lab work during this visit shows a drop in his Hgb from 13 to 11, electrolytes stable, troponin 20, and BNP 46. His PT/INR was elevated at 73/7.7 today. He tested negative for COVID, RSV, and flu. His ABG on admission showed a metabolic alkalosis. Allergies Allergy/AdvReac Type Severity Reaction Status Date / Time No Known Allergies Allergy Verified 11/08/22 19:38 Home Medications Medication Instructions Recorded Confirmed Type glucosamine sulf dipot 1 cap PO BID 02/21/19 11/08/22 History chlr,msm,chond 550 mg-C 30 mg-erum 1 mg capsule (Glucosamine Chondroitin) nitroglycerin 0.4 mg sublingual 0.4 mg sublingual DIRECTED PRN 02/21/19 11/08/22 History tablet (Nitrostat) Chest Pain omeprazole 20 mg capsule,delayed 20 mg PO BID 02/21/19 11/08/22 History release potassium chloride 10 mEq 10 meq PO DAILY 02/21/19 11/08/22 History tablet,extended release(part/cryst) (Klor-Con M) cholecalciferol (vitamin D3) 25 1,000 mcg PO DAILY 01/08/21 11/08/22 History mcg (1,000 unit) tablet vit C 250 mg-vit E 90 mg-zinc 40 2 tab PO DAILY 10/16/21 11/08/22 History mg-copper 1 [id number] capsule (PreserVision AREDS-2) famotidine 20 mg tablet (Pepcid) 20 mg PO BID 03/17/22 11/08/22 History prednisone 5 mg tablet 5 mg PO BID 03/17/22 11/08/22 History acetaminophen 325 mg tablet 650 - 975 mg PO DAILY PRN 03/28/22 11/08/22 History (Tylenol) PAIN/FEVER ascorbic acid (vitamin C) 500 mg 1,000 mg PO DAILY 03/28/22 11/08/22 History tablet (Vitamin C) hydrocortisone 2.5 % topical cream 1 applic topical DAILY PRN 03/28/22 11/08/22 History UNDERARMS FOR FLARE UPS albuterol sulfate 90 mcg/actuation 1 inh inhalation Q6H PRN Shortness 07/04/22 11/08/22 History aerosol inhaler (Ventolin HFA) Of Breath Or Wheezing amiodarone 200 mg tablet 200 mg PO DAILY 07/04/22 11/08/22 History loratadine 10 mg tablet (Claritin) 10 mg PO DAILY 07/04/22 11/08/22 History aspirin 81 mg chewable tablet 81 mg PO DAILY 10/15/22 11/08/22 History glipizide 5 mg tablet 2.5 mg PO DAILY 10/15/22 11/08/22 History tacrolimus 0.1 % topical ointment 1 applic topical BID PRN FLARES OF 10/15/22 11/08/22 History PSORIASIS tamsulosin 0.4 mg capsule (Flomax) 0.4 mg PO DAILY 10/15/22 11/08/22 History warfarin 5 mg tablet See Rx Instructions .Route .COMPLEX 10/15/22 11/08/22 History atorvastatin 40 mg tablet (Lipitor) 40 mg PO PM 10/27/22 11/08/22 History metronidazole 500 mg tablet 500 mg PO TID 10/27/22 11/08/22 History losartan 25 mg tablet 25 mg PO QAM 30 days #30 tabs 10/29/22 11/08/22 Rx metoprolol succinate 25 mg 25 mg PO BID 30 days #60 tabs 10/29/22 11/08/22 Rx tablet,extended release 24 hr fluticasone propionate 50 2 spray intranasal BID 11/05/22 11/08/22 History mcg/actuation nasal spray,suspension psyllium husk 0.52 gram capsule 0.52 g PO BID 11/05/22 11/08/22 History torsemide 20 mg tablet 20 mg PO QAM 11/05/22 11/08/22 History Patient History Medical History Aortic stenosis Asthma Atrial fibrillation with RVR CAD (coronary artery disease) Status post PCI with a BMS to the mid LAD on 05/16/2016. 2.May 26, 2016 diagnostic cardiac catheterization at [facility], Dr. 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 Also, far beyond the stent, there was visible healed dissection flap, Type B, non- obstructive. 3.Status post CABG x 1 with a ABRAMS to LAD for persistent angina, May 2016. Cardiac pacemaker in situ Chronic systolic CHF (congestive heart failure) EF 37% DM2 (diabetes mellitus, type 2) DVT (deep venous thrombosis) "RLE" HLD (hyperlipidemia) Hyperlipidemia Hypertension Ischemic cardiomyopathy residential (current) use of anticoagulants AL on CPAP Paroxysmal atrial fibrillation Pneumonia due to COVID-19 virus Prostate cancer metastatic to lung Tachy-shanita syndrome Surgical History H/O esophagogastroduodenoscopy Hx of total knee arthroplasty S/P CABG x 1 S/P cholecystectomy S/P hip replacement S/P knee replacement Family History Other Diabetes Heart disease Social History Smoking Status: Former smoker Tobacco Type: Cigarettes Cigarettes Per Day: 40; Second Hand Exposure: No; Hx Alcohol Use: No Hx Substance Use: No Preferred Language: Greek Communication Ability: Effective Visual Impairment: No Limitations Hearing Ability: Normal Parts Room Assistant Required: No Beliefs That Will Affect Care: None marital status: Current Living Situation: Spouse Current Living Situation Comment: Home with Feels Safe at Home: Yes Safety Concerns: Feels Safe At This Time Assistive Devices: Cane and CPAP Review of Systems Review of Systems: All systems reviewed & are unremarkable except as noted in HPI & below Physical Exam Constitutional: NAD. Vitals WNL. O2 sat in 90s on 2-3L NC. Neck: No thyromegaly. Trachea midline. Respiratory: CTA bilaterally. No rhonchi, wheezing, or crackles. Non labored breathing. Cardiovascular: Pt has pacemaker. RRR. No murmur noted. No LE edema. No JVD. Skin: Venous stasis changes present upon bilateral anterior lower extremities. Psychiatric: Alert. Mood and affect congruent. Results & Data Results & Data ([facility]) Vital Signs (Past 12 Hours) Vital Signs Temp Pulse Pulse Resp BP BP Pulse Ox 11/09/22 09:54 11/09/22 07:53 36.5 C 89 16 114/68 95 11/09/22 02:42 71 11/09/22 04:13 11/09/22 02:13 37 C 65 18 153/78 H 93 11/09/22 00:00 62 20 146/68 H 97 O2 Del Method O2 Flow Rate 11/09/22 09:54 Room Air 3 11/09/22 07:53 Nasal Cannula 2 11/09/22 02:42 11/09/22 04:13 Nasal Cannula 2 11/09/22 02:13 Nasal Cannula 2 11/09/22 00:00 Nasal Cannula 2 Resident Activity Tracking Resident Involvement: Resident Care Provided Care Provided: Adult Hospital Medicine
--- NOTE | 2022-11-09 12:43 | Billing Data ---
Date of Service November 09, 2022 Coding Level of Care Code INP/OBS CONSULT LVL 4, 60 MIN
--- NOTE | 2022-11-09 15:56 | Hospitalist Progress Note ---
Date of Service November 09, 2022 Assessment & Plan (1) Acute hypoxemic respiratory failure: Plan: Per admitting service notes with addendum: Documented PO2 of 41 on today's ABG Underlying restrictive lung disease/AL on CPAP/pulmonary hypertension as per records Multifactorial : Enlarging pulmonary/mediastinal mets on imaging, hx metastatic prostate cancer status post radiation status post Lupron on prednisone, patient Zytiga chemotherapy on hold due to cardiotoxicity deconditioning following recent heart surgery, history severe status post TAVR 11/09 Echocardiogram during previous admission showing no valvular function CT angiogram of the chest: No pulmonary embolism Current chest x-ray: No pleural effusion, pneumonia, infiltrates Hypoxia likely multifactorial secondary to underlying asthma/COPD, pulmonary hypertension, pulmonary mets Continue supplemental oxygen Pulmonary service consulted Supratherapeutic INR INR 7.7 No signs of bleeding Repeat tomorrow Hold aspirin Chronic systolic heart failure (EF 35%, TTE 2022), ischemic cardiomyopathy, patient slightly on the dry side History CAD status post CABG status post stent/hx PVD as per records hyperlipidemia on statin Rx SSS sp PPM, hx PE/DVT as per records, supratherapeutic INR DM2 on oral medications, suboptimal control as of recent hemoglobin A1c of 7.6 last October 2022 chronic anemia, hemoglobin better at baseline past tobacco abuse PT OT eval DVT prophylaxis. Coumadin (INR goal between 2 and 3)-INR 7.7, hold Coumadin Full code plan of care discussed with patient and his Lucinda in detail and at length all questions answered they are understanding, agreeable, comfortable with the plan of care Admission and Anticipated Discharge Date Admission Date: November 09, 2022 Subjective Follow-up for hypoxia, shortness of breath with exertion, etc. Seen resting in bed, on 2 L of oxygen, not in distress, comfortable States he feels fine overall on exam But does get dyspnea with minimal exertion Denies chest pain, palpitations, dizziness No fevers or chills, nausea or vomiting, cough, abdominal pain, No other symptoms Review of Systems Review of Systems: all noted and negative except for above Physical Exam Physical Exam: General- oriented x 3, not in distress, speaks in sentences with no effort or accessory muscle use Eyes- anicteric Neck- no JVD Lungs- clear breath sounds bilaterally, no rales/wheezes Heart- normal rate, regular rhythm; no murmurs Abdomen- normal bowel sounds, nondistended, soft, nontender Extremities- no pretibial edema, no calf tenderness Neuro- alert, oriented x 3; no gross focal neurologic deficits Skin- warm & dry Results & Data Results & Data ([facility]) Vital Signs (Past 12 Hours) Vital Signs Temp Pulse Resp BP Pulse Ox O2 Del Method O2 Flow Rate 11/09/22 15:31 36.8 C 61 18 103/67 97 Nasal Cannula 3 11/09/22 11:45 36.6 C 71 14 102/65 97 Nasal Cannula 3 11/09/22 09:54 Room Air 3 11/09/22 07:53 36.5 C 89 16 114/68 95 Nasal Cannula 2 11/09/22 04:13 Nasal Cannula 2 all noted and reviewed including below
[2022-11-09] MEDS: ATORVASTATIN 40 MG TAB PO SCH (21:48)
[2022-11-09] MEDS: LANTUS PER UNIT CHARGE SQ SCH (22:12)
[2022-11-10 06:41] LABS: Prothrombin Time 71.2 Seconds (9.0-12.0)
[2022-11-10 06:46] LABS: INR 7.5 (0.9-1.1)
[2022-11-10] MEDS ORDERED: PHYTONADIONE 5 MG TAB PO STA (06:50)
--- NOTE | 2022-11-10 07:36 | Cardiology Consultation ---
Date of Consultation November 10, 2022 Assessment & Plan (1) Acute hypoxemic respiratory failure: (2) Dyspnea on exertion: (3) Supratherapeutic INR: (4) History of transcatheter aortic valve replacement (TAVR): (5) Chronic HFrEF (heart failure with reduced ejection fraction): (6) Prostate cancer metastatic to lung: (7) Cardiac pacemaker in situ: (8) CAD (coronary artery disease): Plan Medically complex 81 year old male with progressive SOB/hypoxia. -Cause of shortness of breath is likely multifactorial given his history of HFrEF (LVEF 35-39%), severe s/p TAVR on 10/24 with deconditioning, mild anemia, PAF with RVR, and metastatic prostate CA with lung and liver mets. Last PFTs also showing mild restrictive lung disease. -Recent device interrogation dated 11/08 as an outpatient showing appropriate function. Per chart review it appears that patient primarily a-paces, but when RV pacing is noted it paces unipolar and was deemed acceptable at the time. Should shortness of breath persist may need to be re-evaluated by EP to consider upgrade to BIV vs a septal lead. Will recheck device interrogation today. -Other considerations would be the ongoing use of amiodarone which was initially started for PAF and VT (started initially in 2016) and potential for pulmonary toxicity- however, if amiodarone is dc'd there is potential for more frequent and sustained episodes of PAF which would increase that RV pacing burden as well as increase in VT episodes. -Continue to hold Warfarin due to supratherapeutic INR. -Continue to use supplemental o2 as needed, may need to repeat a 2 step and get patient sent home on . -PT/OT Case discussed with Dr. Horvath- Will follow clinically. Supervising Physician Co-Signing Physician Notes I have seen and examined the patient. I have reviewed the medical record and discussed the case with the nurse practitioner. I agree with the plan as outlined. The patient is scheduled to have an outpatient PET scan but has been having difficulty making those appointments and scheduling the study. I will check to see if it can be done while he is here in the hospital. History of Present Illness Reason for Consultation: Respiratory failure Requesting Physician: Lena gillespie Attending Physician: Wisam Johnson MD History of Present Illness Medically complex 81-year-old male who initially presented to [facility] emergency department due to progressive shortness of breath and weakness resulting in a fall on 11/05. Last confinement 10/28 to 10/29 for shortness of breath on exertion attributed to increasing sign of pulmonary nodules, prostate cancer mets and deconditioning post TAVR. Two-step was completed at the time however patient did not qualify for home O2. Upon most recent presentation oxygen saturation in the emergency room was in the 80s. No clinic signs for volume overload and patient was felt to be on the dry side. On telemetry patient converted from NSR to PAF with RVR in the 120-130s, mildly symptomatic with "fluttering". This is a known diagnosis. He is on both amiodarone and metoprolol. Anticoagulated as an outpatient on warfarin. This medication has since been on hold due to a supratherapeutic INR of 7.7 >> 7.5 this am. Patient was hypokalemic with a potassium of 3.0, BUN elevated at 31, creatinine stable at 0.95. Chest x-ray without acute changes suggestive of CHF exacerbation. Metastatic disease suggested. Echocardiogram dated 10/28: LVEF 35 to 40% with mild concentric LVH. Large sized apical, septal, anteroseptal, and anterior wall motion abnormality with hypokinesis to akinesis of the segments. Anterior septal wall thinned and akinetic consistent with scar. TAVR gradient stable. Upon entrance into the room patient resting comfortably in bed, asleep. HOB flat. Woke easily. During time of exam patient stated he was feeling well. At rest he has no shortness of breath or orthopnea. Only noticed SOB with activity, but admits to improved with the use of O2. No chest pain. Denies symptoms of palpitations while he was in AFIB. No lightheadedness or syncope. Tele: Paced 60s, converted to NSR from AFIB at 1355, 11/09 EKG 11/10: A paced rhythm, RBBB, 63 bpm Labs: Stable renal function. Potassium improved within normal limits (3.0>>3.8) Primary clinical social worker: Dr. Clark and Fredy Loza PA-C Cardiac Problems: 1.Hx Severe 2.TAVR 10/24/[address] Rutherford -#23mm Ornelas Rosaline S3 Ultra valve 3. TBS -Dual Chamber Pacer 12/25/2017 4. Paroxysmal AFIB -[id number] 5 (age, HTN, CAD, DM)- on warfarin 5.CAD -CAGB x1 (ABRAMS-LAD) /2016 -BMS x1 mid LAD /2015 6.Ischemic CMP -EF 35-39% 10/25/22 7.Hypertension 8.Dyslipidemia 9.AL 10.[place] 11.Metastatic Prostate CA -lung & liver metastasis - Zytiga chemo on hold due to cardiotoxicity 12.PVD 13.DM 2 Allergies Allergy/AdvReac Type Severity Reaction Status Date / Time No Known Allergies Allergy Verified 11/08/22 19:38 Home Medications Medication Instructions Recorded Confirmed Type glucosamine sulf dipot 1 cap PO BID 02/21/19 11/08/22 History chlr,msm,chond 550 mg-C 30 mg-erum 1 mg capsule (Glucosamine Chondroitin) nitroglycerin 0.4 mg sublingual 0.4 mg sublingual DIRECTED PRN 02/21/19 11/08/22 History tablet (Nitrostat) Chest Pain omeprazole 20 mg capsule,delayed 20 mg PO BID 02/21/19 11/08/22 History release potassium chloride 10 mEq 10 meq PO DAILY 02/21/19 11/08/22 History tablet,extended release(part/cryst) (Klor-Con M) cholecalciferol (vitamin D3) 25 1,000 mcg PO DAILY 01/08/21 11/08/22 History mcg (1,000 unit) tablet vit C 250 mg-vit E 90 mg-zinc 40 2 tab PO DAILY 10/16/21 11/08/22 History mg-copper 1 [id number] capsule (PreserVision AREDS-2) famotidine 20 mg tablet (Pepcid) 20 mg PO BID 03/17/22 11/08/22 History prednisone 5 mg tablet 5 mg PO BID 03/17/22 11/08/22 History acetaminophen 325 mg tablet 650 - 975 mg PO DAILY PRN 03/28/22 11/08/22 History (Tylenol) PAIN/FEVER ascorbic acid (vitamin C) 500 mg 1,000 mg PO DAILY 03/28/22 11/08/22 History tablet (Vitamin C) hydrocortisone 2.5 % topical cream 1 applic topical DAILY PRN 03/28/22 11/08/22 History UNDERARMS FOR FLARE UPS albuterol sulfate 90 mcg/actuation 1 inh inhalation Q6H PRN Shortness 07/04/22 11/08/22 History aerosol inhaler (Ventolin HFA) Of Breath Or Wheezing amiodarone 200 mg tablet 200 mg PO DAILY 07/04/22 11/08/22 History loratadine 10 mg tablet (Claritin) 10 mg PO DAILY 07/04/22 11/08/22 History aspirin 81 mg chewable tablet 81 mg PO DAILY 10/15/22 11/08/22 History glipizide 5 mg tablet 2.5 mg PO DAILY 10/15/22 11/08/22 History tacrolimus 0.1 % topical ointment 1 applic topical BID PRN FLARES OF 10/15/22 11/08/22 History PSORIASIS tamsulosin 0.4 mg capsule (Flomax) 0.4 mg PO DAILY 10/15/22 11/08/22 History warfarin 5 mg tablet See Rx Instructions .Route .COMPLEX 10/15/22 11/08/22 History atorvastatin 40 mg tablet (Lipitor) 40 mg PO PM 10/27/22 11/08/22 History metronidazole 500 mg tablet 500 mg PO TID 10/27/22 11/08/22 History losartan 25 mg tablet 25 mg PO QAM 30 days #30 tabs 10/29/22 11/08/22 Rx metoprolol succinate 25 mg 25 mg PO BID 30 days #60 tabs 10/29/22 11/08/22 Rx tablet,extended release 24 hr fluticasone propionate 50 2 spray intranasal BID 11/05/22 11/08/22 History mcg/actuation nasal spray,suspension psyllium husk 0.52 gram capsule 0.52 g PO BID 11/05/22 11/08/22 History torsemide 20 mg tablet 20 mg PO QAM 11/05/22 11/08/22 History Patient History Medical History Aortic stenosis Asthma Atrial fibrillation with RVR CAD (coronary artery disease) Status post PCI with a BMS to the mid LAD on 05/16/2016. 2.May 26, 2016 diagnostic cardiac catheterization at [facility], Dr. 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 Also, far beyond the stent, there was visible healed dissection flap, Type B, non- obstructive. 3.Status post CABG x 1 with a ABRMAS to LAD for persistent angina, May 2016. 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 Surgical History H/O esophagogastroduodenoscopy Hx of total knee arthroplasty S/P CABG x 1 S/P cholecystectomy S/P hip replacement S/P knee replacement Family History Other Diabetes Heart disease Social History Smoking Status: Former smoker Tobacco Type: Cigarettes Cigarettes Per Day: 40; Second Hand Exposure: No; Hx Alcohol Use: No Hx Substance Use: No Preferred Language: Kyrgyz Communication Ability: Effective Visual Impairment: No Limitations Hearing Ability: Normal Ripening Room Hand Required: No Beliefs That Will Affect Care: None marital status: Current Living Situation: Spouse Current Living Situation Comment: Home with Feels Safe at Home: Yes Safety Concerns: Feels Safe At This Time Assistive Devices: Cane, CPAP and Walker Review of Systems Review of Systems: All systems reviewed & are unremarkable except as noted in HPI & below Physical Exam Constitutional: WD/WN, vitals as above no acute distress Eyes: PERRL, conjunctivae normal, anicteric sclerae Neck: trachea midline, no thyromegaly Respiratory: normal respiratory effort, lungs clear to auscultation Cardiovascular: Rate/Rhythm: regular rate and regular rhythm Heart Sounds: normal S1, normal S2 and + murmur (faint systolic murmur ) Vessels: no JVD Extremities: no edema Chest (Breasts): Chest: + pacemaker (ppm pocket healed) Gastrointestinal (Abdomen): normal bowel sounds, soft, nontender, no hepatosplenomegaly Musculoskeletal: no cyanosis or clubbing, extremities motor strength 5/5 Skin: no rashes, warm and dry Psychiatric: A+Ox3, euthymic affect Results & Data ([facility]) Vital Signs (Past 12 Hours) Vital Signs Temp Pulse Pulse Resp BP Pulse Ox O2 Del Method 11/10/22 07:20 36.6 C 65 20 117/73 98 Nasal Cannula 11/10/22 04:29 36.9 C 67 20 102/64 98 Nasal Cannula 11/10/22 02:05 Nasal Cannula 11/09/22 22:06 74 11/09/22 23:12 36.4 C L 85 20 133/86 98 Nasal Cannula 11/09/22 19:41 36.7 C 59 L 20 119/70 98 Nasal Cannula O2 Flow Rate 11/10/22 07:20 3 11/10/22 04:29 2 11/10/22 02:05 2 11/09/22 22:06 11/09/22 23:12 2 11/09/22 19:41 2 Laboratory Results Coagulation 11/10/22 Range/Units 05:48 PT 71.2 H (9.0-12.0) Seconds CBC 11/10/22 Range/Units 08:37 WBC 5.91 (4.8-10.8) K/ul RBC 4.23 L (4.70-6.10) M/uL Hgb 12.7 L (14.0-18.0) g/dl Hct 37.4 L (42.0-52.0) % Plt Count 140 (130-400) K/uL Neut # (Auto) 4.01 (1.40-6.50) K/uL Lymph # (Auto) 1.27 (1.2-3.4) K/uL [place] # (Auto) 0.55 (0.11-0.59) K/uL Eos # (Auto) 0.03 (0-0.50) K/uL Baso # (Auto) 0.02 (0-0.2) K/uL Comprehensive Metabolic Panel 11/10/22 Range/Units 08:37 Sodium 135 L (136-145) mmol/L Potassium 3.8 D (3.5-5.1) mmol/L Chloride 98 (98-107) mmol/L Carbon Dioxide 29 (21-32) mmol/L BUN 26 H (6-23) mg/dl Creatinine 0.99 (0.6-1.4) mg/dl Glucose 221 H (70-99(Fasting)) mg/dl Calcium 9.0 (8.5-10.1) mg/dl Intake and Output 11/09/22 11/10/22 11/10/22 22:59 06:59 14:59 Intake Total 440 / 740 Balance 440 / 539 Intake: Oral 440 / 740 Other: Weight 95.4 kg Weight Measurement Method Built in [facility]
[2022-11-10] MEDS: INSULIN ASPART PER UNIT SC SCH ×4 (08:58→21:05)
[2022-11-10] MEDS: FAMOTIDINE 20 MG TAB PO SCH ×2 (08:59→21:07)
[2022-11-10] MEDS: predniSONE 5 MG TAB PO SCH ×2 (08:59→16:38)
[2022-11-10] MEDS: METOPROLOL SUCC 25MG EXT REL TAB PO SCH ×2 (09:00→21:07)
[2022-11-10] MEDS: CEROVITE ADV FORMULA TAB PO SCH (09:00)
[2022-11-10] MEDS: PSYLLIUM or GUAR GUM FIBER POWDER PACKET PO SCH (09:00)
[2022-11-10] MEDS: LOSARTAN POTASSIUM 25 MG TAB PO SCH (09:00)
[2022-11-10] MEDS: LORATADINE 10 MG TAB PO SCH (09:00)
[2022-11-10] MEDS: TORSEMIDE 20 MG TAB PO SCH (09:00)
[2022-11-10] MEDS: TAMSULOSIN HCL 0.4 MG CAP PO SCH (09:00)
[2022-11-10] MEDS: AMIODARONE 200 MG TAB PO SCH (09:00)
[2022-11-10] MEDS: PANTOprazole 40 MG TAB PO SCH ×2 (09:01→21:08)
[2022-11-10] MEDS: POTASSIUM CHLORIDE 10 MEQ TABCR PO SCH (09:04)
[2022-11-10] MEDS: FLUTICASONE PROPIONATE NA SPR 16 GM BTL SCH ×2 (09:11→21:05)
[2022-11-10 09:21] LABS: Basophils # (auto) 0.02 K/uL (0-0.2); Basophils % (auto) 0.3 %; Eosinophils # (auto) 0.03 K/uL (0-0.50); Eosinophils % (auto) 0.5 %; Hematocrit (blood only) 37.4 % (42.0-52.0); Hemoglobin 12.7 g/dl (14.0-18.0); Immature Granulocytes # (auto) 0.03 K/uL (0.01-0.20); Immature Granulocytes % (auto) 0.5 %; Lymphocytes # (auto) 1.27 K/uL (1.2-3.4); Lymphocytes % (auto) 21.5 %; Mean Corpuscular Volume 88.4 fL (80.0-100.0); Monocytes # (auto) 0.55 K/uL (0.11-0.59); Monocytes % (auto) 9.3 %; Neutrophils # (auto) 4.01 K/uL (1.40-6.50); Neutrophils % (auto) 67.9 %; Platelet Count 140 K/uL (130-400); Platelet Estimate Decreased (Normal); RDW Coefficient of Variation 15.1 % (11.5-14.5); RDW Standard Deviation 48.4 fL (36.4-46.3); Red Blood Count 4.23 M/uL (4.70-6.10); Toxic Granulation 1+; Toxic Vacuolation 1+; White Blood Count 5.91 K/ul (4.8-10.8)
[2022-11-10 09:46] LABS: BUN Creatinine Ratio 26.3 (10-20); Creatinine Clr Calc Pharmacy 65.6 ml/min; Est GFR (African American) 81.9 ml/min; Est GFR (Non-African American) 70.6 ml/min; Magnesium 2.2 mg/dl (1.7-2.4); Potassium 3.8 mmol/L (3.5-5.1)
--- NOTE | 2022-11-10 13:56 | Hospitalist Progress Note ---
Date of Service November 10, 2022 Assessment & Plan (1) Acute hypoxemic respiratory failure: Plan: Per admitting service notes with addendum: Documented PO2 of 41 on today's ABG Underlying restrictive lung disease/AL on CPAP/pulmonary hypertension as per records Multifactorial : Enlarging pulmonary/mediastinal mets on imaging, hx metastatic prostate cancer status post radiation status post Lupron on prednisone, patient Zytiga chemotherapy on hold due to cardiotoxicity deconditioning following recent heart surgery, history severe status post TAVR 11/10 Echocardiogram during previous admission showing no valvular function CT angiogram of the chest: No pulmonary embolism Current chest x-ray: No pleural effusion, pneumonia, infiltrates Hypoxia likely multifactorial secondary to underlying asthma/COPD, pulmonary hypertension, pulmonary mets, deconditioning Continue supplemental oxygen Pulmonary service consulted- recommendations noted, recommend pacemaker evaluation Cardiology service consulted continue O2 supplement PT/OT eval will need to transition to Acute Rehab Supratherapeutic INR INR 7.5 No signs of bleeding Repeat tomorrow Hold aspirin Chronic systolic heart failure (EF 35%, TTE 2022), ischemic cardiomyopathy, euvolemic History CAD status post CABG status post stent/hx PVD as per records hyperlipidemia on statin Rx SSS sp PPM, hx PE/DVT as per records, PM interrogation DM2 on oral medications, suboptimal control as of recent hemoglobin A1c of 7.6 last October 2022 chronic anemia, hemoglobin better at baseline past tobacco abuse PT OT eval DVT prophylaxis. Coumadin (INR goal between 2 and 3)-INR 7.7, hold Coumadin Full code plan of care discussed with patient and his Lucinda in detail and at length all questions answered they are understanding, agreeable, comfortable with the plan of care Admission and Anticipated Discharge Date Admission Date: November 09, 2022 Subjective ff up for dyspnea on minimal exertion, etc seen resting, sitting up in bed on 2 L, comfortable in good spirits states he feels improved compared to yesterday ambulating to the bathroom with O2 supplement, denies dyspnea still feels weak on his legs no other symptoms Review of Systems Review of Systems: all noted and negative except for above Physical Exam Physical Exam: General- oriented x 3, not in distress, speaks in sentences with no effort or accessory muscle use Eyes- anicteric Neck- no JVD Lungs- clear BS bilaterally, no rales/wheezes Heart- normal rate, regular rhythm; no murmurs Abdomen- normal bowel sounds, nondistended, soft, no tenderness Extremities- no pretibial edema, no calf tenderness Neuro- alert, oriented x 3; no gross focal neurologic deficits Skin- warm & dry Results & Data Results & Data ([facility]) Vital Signs (Past 12 Hours) Vital Signs Temp Pulse Pulse Resp BP Pulse Ox O2 Del Method 11/10/22 07:45 Nasal Cannula 11/10/22 07:45 97 Nasal Cannula 11/10/22 12:18 36.4 C L 69 20 113/75 98 Nasal Cannula 11/10/22 07:30 60 11/10/22 07:20 36.6 C 65 20 117/73 98 Nasal Cannula 11/10/22 04:29 36.9 C 67 20 102/64 98 Nasal Cannula 11/10/22 02:05 Nasal Cannula O2 Flow Rate 11/10/22 07:45 2 11/10/22 07:45 3 11/10/22 12:18 3 11/10/22 07:30 11/10/22 07:20 3 11/10/22 04:29 2 11/10/22 02:05 2 all noted and reviewed including below
--- NOTE | 2022-11-10 15:06 | Electrocardiogram Report ---
Test Reason : Blood Pressure : / mmHG Vent. Rate : 109 BPM Atrial Rate : 058 BPM P-R Int : 000 ms QRS Dur : 166 ms QT Int : 422 ms P-R-T Axes : 000 -81 070 degrees QTc Int : 568 ms Atrial fibrillation with rapid ventricular response Left axis deviation Right bundle branch block Left anterior fascicular block Abnormal ECG When compared with ECG of 08-NOV-2022 18:22, Atrial fibrillation has replaced Electronic atrial pacemaker Vent. rate has increased BY 49 BPM QRS duration has decreased QT has lengthened Confirmed by True Stevens ([id number]) on 11/10/2022 3:06:09 PM Referred By: REFERRED SELF Confirmed By:Lloyd Stevens
--- NOTE | 2022-11-10 15:30 | Electrocardiogram Report ---
Test Reason : Blood Pressure : / mmHG Vent. Rate : 063 BPM Atrial Rate : 063 BPM P-R Int : 264 ms QRS Dur : 186 ms QT Int : 522 ms P-R-T Axes : 011 -81 067 degrees QTc Int : 534 ms Atrial-paced rhythm with prolonged AV conduction Left axis deviation Right bundle branch block Poor R wave progression, consider anterior NC vs. lead placement vs. LVH Abnormal ECG When compared with ECG of 09-NOV-2022 12:44, (unconfirmed) Electronic atrial pacemaker has replaced Atrial fibrillation Vent. rate has decreased BY 46 BPM Confirmed by True Stevens ([id number]) on 11/10/2022 3:30:19 PM Referred By: REFERRED SELF Confirmed By:Lloyd Stevens
[2022-11-10] MEDS: LANTUS PER UNIT CHARGE SQ SCH (21:06)
[2022-11-10] MEDS: ATORVASTATIN 40 MG TAB PO SCH (21:07)
[2022-11-11 06:02] LABS: INR 2.9 (0.9-1.1)
[2022-11-11] MEDS: INSULIN ASPART PER UNIT SC SCH ×4 (08:46→21:24)
[2022-11-11] MEDS: FAMOTIDINE 20 MG TAB PO SCH ×2 (08:48→21:20)
[2022-11-11] MEDS: LORATADINE 10 MG TAB PO SCH (08:49)
[2022-11-11] MEDS: TAMSULOSIN HCL 0.4 MG CAP PO SCH (08:49)
[2022-11-11] MEDS: PANTOprazole 40 MG TAB PO SCH ×2 (08:49→21:24)
[2022-11-11] MEDS: POTASSIUM CHLORIDE 10 MEQ TABCR PO SCH (08:49)
[2022-11-11] MEDS: LOSARTAN POTASSIUM 25 MG TAB PO SCH (08:50)
[2022-11-11] MEDS: CEROVITE ADV FORMULA TAB PO SCH (08:50)
[2022-11-11] MEDS: METOPROLOL SUCC 25MG EXT REL TAB PO SCH ×2 (08:50→21:24)
[2022-11-11] MEDS: TORSEMIDE 20 MG TAB PO SCH (08:50)
[2022-11-11] MEDS: AMIODARONE 200 MG TAB PO SCH (08:50)
[2022-11-11] MEDS: predniSONE 5 MG TAB PO SCH ×2 (08:50→17:03)
[2022-11-11] MEDS: FLUTICASONE PROPIONATE NA SPR 16 GM BTL SCH ×2 (08:51→21:25)
--- NOTE | 2022-11-11 15:26 | Cardiology Progress Note ---
Date of Service November 11, 2022 Assessment & Plan (1) Acute hypoxemic respiratory failure: Plan: - Per review of the patient's chart, he has had progressive dyspnea on exertion for 6 months, prompting electrophysiology consultation, cardiac catheterization, and subsequent transcatheter aortic valve implantation procedure performed 10/24/2022. Recent echocardiogram performed at this institution 10/28/2022 revealed stable transcatheter aortic valve prosthesis function compared to the previous performed 1 day post procedure at [facility] [place] on 10/25/2022. Patient with findings of ischemic cardiomyopathy, LVEF 35% with chronic apical septal, anteroseptal scar. He also has findings of pulmonary metastatic disease and metastatic disease to the bones on recent CT of the chest. At present would continue current treatment including torsemide 20 mg daily, amiodarone 200 mg daily (amiodarone treatment indicated for rhythm control strategy with regards to paroxysmal atrial fibrillation, and past history of ventricular arrhythmias), metoprolol succinate 25 mg twice daily, potassium chloride 10 mill equivalents daily. Atorvastatin 40 mg daily. Coumadin remains on hold, reinitiate on 11/12 depending upon INR. Admission and Anticipated Discharge Date Admission Date: November 09, 2022 Subjective Patient seen in cardiology follow-up. His spouse is at bedside. Respiratory status is stable/improved, but he still has an oxygen requirement, and is on 2 L nasal cannula. Physical Exam Constitutional: + ill appearing (Chronically ill in appearance); no acute distress Respiratory: Auscultation: + diminished lung sounds (Mildly reduced breath sounds in the bases) Cardiovascular: RRR, no murmur, no edema Gastrointestinal (Abdomen): normal bowel sounds, soft, nontender, no hepatosplenomegaly Neurologic: PERRL, EOMI, accommodation nl, no face palsy, no dysarthria Results & Data ([facility]) Vital Signs (Past 12 Hours) Vital Signs Temp Pulse Pulse Resp BP Pulse Ox O2 Del Method 11/11/22 11:19 36.7 C 66 20 115/71 98 Nasal Cannula 11/11/22 07:26 36.6 C 69 20 103/58 L 99 Nasal Cannula 11/11/22 07:23 Nasal Cannula 11/11/22 07:08 62 O2 Flow Rate 11/11/22 11:19 2 11/11/22 07:26 2 11/11/22 07:23 2 11/11/22 07:08 Laboratory Results INR on presentation was supratherapeutic, and on 11/10/2022 was 7.5, down to 2.9 today Coagulation 11/11/22 Range/Units 05:38 PT 29.0 H (9.0-12.0) Seconds Intake and Output 11/11/22 11/11/22 11/11/22 06:59 14:59 22:59 Other: # Unmeasured Voids 1 Weight 97.1 kg Diagnostic Findings Telemetry reveals sinus rhythm with atrial pacing in the 80s.
--- NOTE | 2022-11-11 15:35 | Hospitalist Progress Note ---
Date of Service November 11, 2022 Assessment & Plan (1) Acute hypoxemic respiratory failure: Plan: Per admitting service notes with addendum: Documented PO2 of 41 on today's ABG Underlying restrictive lung disease/AL on CPAP/pulmonary hypertension as per records Multifactorial : Enlarging pulmonary/mediastinal mets on imaging, hx metastatic prostate cancer status post radiation status post Lupron on prednisone, patient Zytiga chemotherapy on hold due to cardiotoxicity deconditioning following recent heart surgery, history severe status post TAVR 11/11 Echocardiogram during previous admission showing no valvular function CT angiogram of the chest: No pulmonary embolism Current chest x-ray: No pleural effusion, pneumonia, infiltrates Hypoxia likely multifactorial secondary to underlying asthma/COPD, pulmonary hypertension, pulmonary mets, deconditioning Continue supplemental oxygen Pulmonary service consulted- recommendations noted, recommend pacemaker evaluation Cardiology service consulted continue O2 supplement PT/OT eval will need to transition to Acute Rehab Requested cardiology service to comment regarding pacemaker interrogation and results, possible need for EP evaluation Supratherapeutic INR INR 2.9 No signs of bleeding Repeat INR tomorrow resume Aspirin Chronic systolic heart failure (EF 35%, TTE 2022), ischemic cardiomyopathy, euvolemic History CAD status post CABG status post stent/hx PVD as per records hyperlipidemia on statin Rx SSS sp PPM, hx PE/DVT as per records DM2 on oral medications, suboptimal control as of recent hemoglobin A1c of 7.6 last October 2022 chronic anemia, hemoglobin better at baseline past tobacco abuse PT OT eval DVT prophylaxis. Coumadin (INR goal between 2 and 3)-INR 7.7, hold Coumadin Full code plan of care discussed with patient all questions answered he is understanding, agreeable, comfortable with the plan of care Admission and Anticipated Discharge Date Admission Date: November 09, 2022 Subjective Follow-up for dyspnea on minimal exertion, etc. Seen resting in bed, comfortable, not in distress States he feels fine overall Ambulated to the bathroom with no problems no chest pain, dyspnea, palpitations, dizziness No other symptoms Review of Systems Review of Systems: all noted and negative except for above Physical Exam Physical Exam: General- oriented x 3, not in distress, speaks in sentences with no effort or accessory muscle use Eyes- anicteric Neck- no JVD Lungs- clear BS bilaterally, no rales/wheezes Heart- normal rate, regular rhythm; no murmurs Abdomen- normal bowel sounds, nondistended, soft, nontender Extremities- no pretibial edema, no calf tenderness Neuro- alert, oriented x 3; no gross focal neurologic deficits Skin- warm & dry Results & Data Results & Data ([facility]) Vital Signs (Past 12 Hours) Vital Signs Temp Pulse Pulse Resp BP Pulse Ox O2 Del Method 11/11/22 11:19 36.7 C 66 20 115/71 98 Nasal Cannula 11/11/22 07:26 36.6 C 69 20 103/58 L 99 Nasal Cannula 11/11/22 07:23 Nasal Cannula 11/11/22 07:08 62 O2 Flow Rate 11/11/22 11:19 2 11/11/22 07:26 2 11/11/22 07:23 2 11/11/22 07:08 all noted and reviewed including below
[2022-11-11] MEDS: ASPIRIN 81 MG ECTAB PO SCH (16:20)
[2022-11-11] MEDS: SODIUM CHLORIDE 0.9% 500 ML IV SCH (17:03)
[2022-11-11] MEDS: ATORVASTATIN 40 MG TAB PO SCH (21:20)
[2022-11-11] MEDS: LANTUS PER UNIT CHARGE SQ SCH (21:25)
[2022-11-12] MEDS: SODIUM CHLORIDE 0.9% 500 ML IV SCH (00:50)
[2022-11-12 08:09] LABS: Basophils # (auto) 0.01 K/uL (0-0.2); Basophils % (auto) 0.2 %; Eosinophils # (auto) 0.01 K/uL (0-0.50); Eosinophils % (auto) 0.2 %; Hemoglobin 11.5 g/dl (14.0-18.0); Immature Granulocytes # (auto) 0.03 K/uL (0.01-0.20); Immature Granulocytes % (auto) 0.5 %; Lymphocytes # (auto) 0.85 K/uL (1.2-3.4); Lymphocytes % (auto) 15.5 %; Mean Corpuscular Hemoglobin 29.9 pg (25.0-34.0); Mean Corpuscular Hgb Conc 33.8 g/dL (32.0-36.0); Mean Corpuscular Volume 88.3 fL (80.0-100.0); Mean Platelet Volume 9.2 fL (9.4-12.4); Monocytes # (auto) 0.46 K/uL (0.11-0.59); Monocytes % (auto) 8.4 %; Neutrophils # (auto) 4.14 K/uL (1.40-6.50); Neutrophils % (auto) 75.2 %; Platelet Count 103 K/uL (130-400); RDW Coefficient of Variation 14.7 % (11.5-14.5); RDW Standard Deviation 47.4 fL (36.4-46.3); Red Blood Count 3.85 M/uL (4.70-6.10)
[2022-11-12 08:18] LABS: INR 1.8 (0.9-1.1); Prothrombin Time 18.8 Seconds (9.0-12.0)
[2022-11-12] MEDS: predniSONE 5 MG TAB PO SCH ×2 (08:37→16:28)
[2022-11-12] MEDS: POTASSIUM CHLORIDE 10 MEQ TABCR PO SCH (08:37)
[2022-11-12] MEDS: LORATADINE 10 MG TAB PO SCH (08:37)
[2022-11-12] MEDS: AMIODARONE 200 MG TAB PO SCH (08:37)
[2022-11-12] MEDS: PANTOprazole 40 MG TAB PO SCH ×2 (08:37→21:22)
[2022-11-12] MEDS: CEROVITE ADV FORMULA TAB PO SCH (08:37)
[2022-11-12] MEDS: TAMSULOSIN HCL 0.4 MG CAP PO SCH (08:37)
[2022-11-12] MEDS: FAMOTIDINE 20 MG TAB PO SCH ×2 (08:37→21:22)
[2022-11-12] MEDS: FLUTICASONE PROPIONATE NA SPR 16 GM BTL SCH ×2 (08:38→21:22)
[2022-11-12] MEDS: ASPIRIN 81 MG ECTAB PO SCH (08:38)
[2022-11-12] MEDS: METOPROLOL SUCC 25MG EXT REL TAB PO SCH ×2 (08:38→21:22)
[2022-11-12] MEDS: INSULIN ASPART PER UNIT SC SCH ×4 (08:39→21:23)
[2022-11-12 11:17] LABS: Albumin Globulin Ratio 1.5 (0.9-2); Albumin Level 3.3 gm/dl (3.4-5.0); BUN Creatinine Ratio 32.9 (10-20); Calcium 8.7 mg/dl (8.5-10.1); Creatinine Clr Calc Pharmacy 77.2 ml/min; Est GFR (Non-African American) 81.1 ml/min; Globulin 2.2 gm/dl (2.5-4.0); Potassium 3.2 mmol/L (3.5-5.1); Total Protein 5.5 gm/dl (6.0-8.3)
--- NOTE | 2022-11-12 14:05 | Hospitalist Progress Note ---
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 Echocardiogram during previous admission showing no valvular function CT angiogram of the chest: No pulmonary embolism chest x-ray: No pleural effusion, pneumonia, infiltrates Hypoxia likely multifactorial secondary to underlying asthma/COPD, pulmonary hypertension, pulmonary mets, deconditioning Continue supplemental oxygen Pulmonary service consulted- recommendations noted Cardiology service consulted- pacemaker interrogation ok continue O2 supplement PT/OT eval will need to transition to Acute Rehab Dizziness noted yesterday upon standing, walking to the bathroom BP on the lower side given IV fluids overnight hold Torsemide, Losartan resolved today monitor Supratherapeutic INR INR 1.9 resume coumadin Chronic systolic heart failure (EF 35%, TTE 2022), ischemic cardiomyopathy on the dry side management per #2 History CAD status post CABG status post stent/hx PVD as per records hyperlipidemia on statin Rx SSS sp PPM, hx PE/DVT as per records DM2 on oral medications, suboptimal control as of recent hemoglobin A1c of 7.6 last October 2022 chronic anemia, hemoglobin better at baseline past tobacco abuse PT OT eval DVT prophylaxis: coumadin Full code Disposition Acute Rehab plan of care discussed with patient all questions answered he is understanding, agreeable, comfortable with the plan of care Admission and Anticipated Discharge Date Admission Date: November 09, 2022 Subjective ff up for dyspnea, etc seen resting in bed, comfortable in good spirits on 2 L NC states he feels better today ambulated to the BR with no dizziness, or other symptoms no other symptoms Review of Systems Review of Systems: all noted and negative except for above Physical Exam Physical Exam: General- oriented x 3, not in distress, speaks in sentences with no effort or accessory muscle use Eyes- anicteric Neck- no JVD Lungs- clear BS BL, no rales/wheezes Heart- normal rate, regular rhythm; no murmurs Abdomen- normal bowel sounds, nondistended, soft, nontender Extremities- no pretibial edema, no calf tenderness Neuro- alert, oriented x 3; no gross focal neurologic deficits Skin- warm & dry Results & Data Results & Data ([facility]) Vital Signs (Past 12 Hours) Vital Signs Temp Pulse Pulse Resp BP Pulse Ox O2 Del Method 11/12/22 11:15 36.3 C L 63 18 98/62 L 95 Nasal Cannula 11/12/22 07:59 36.5 C 65 20 107/62 97 Nasal Cannula 11/12/22 07:17 64 11/12/22 07:07 Nasal Cannula 11/12/22 03:36 36.7 C 65 18 101/61 98 Nasal Cannula O2 Flow Rate 11/12/22 11:15 2 11/12/22 07:59 2 11/12/22 07:17 11/12/22 07:07 2 11/12/22 03:36 2 all noted and reviewed including below
[2022-11-12] MEDS: WARFARIN SOD 5 MG TAB PO SCH (16:28)
[2022-11-12] MEDS: POTASSIUM CHLORIDE CRTAB 20 MEQ TABCR PO SCH ×2 (16:28→21:21)
--- NOTE | 2022-11-12 17:55 | Cardiology Progress Note ---
Date of Service November 12, 2022 Assessment & Plan (1) Acute hypoxemic respiratory failure: Plan: - Per review of the patient's chart, he has had progressive dyspnea on exertion for 6 months, prompting electrophysiology consultation, cardiac catheterization, and subsequent transcatheter aortic valve implantation procedure performed 10/24/2022. Recent echocardiogram performed at this institution 10/28/2022 revealed stable transcatheter aortic valve prosthesis function compared to the previous performed 1 day [place] [facility] Patient with findings of ischemic cardiomyopathy, LVEF 35% with chronic apical septal, anteroseptal scar. He also has findings of pulmonary metastatic disease and metastatic disease to the bones on recent CT of the chest. -Torsemide and losartan held today due to a transient episode of lightheadedness. His most recent blood pressure is improved to 152/79 having been 98/62. -I counseled the patient that in the long-term I feel he will need his ongoing torsemide therapy. We will reassess this tomorrow. -He has received potassium supplementation for hypokalemia. -INR 1.8 today, down from previous measurements of 7.5 and 2.9. Coumadin 5 mg daily reinitiated. Admission and Anticipated Discharge Date Admission Date: November 09, 2022 Subjective Patient seen in cardiology follow-up. He was eating his evening meal. Without complaints. He was off of oxygen while eating and in no distress, and comfortable. His spouse was at the bedside. Telemetry revealed sinus rhythm with atrial pacing. Physical Exam Constitutional: + ill appearing (Chronically ill in appearance); no acute distress Respiratory: Auscultation: + diminished lung sounds (Mildly reduced breath sounds in the bases) Cardiovascular: RRR, no murmur, no edema Gastrointestinal (Abdomen): normal bowel sounds, soft, nontender, no hepatosplenomegaly Neurologic: PERRL, EOMI, accommodation nl, no face palsy, no dysarthria Results & Data ([facility]) Vital Signs (Past 12 Hours) Vital Signs Temp Pulse Pulse Resp BP Pulse Ox O2 Del Method 11/12/22 16:11 61 11/12/22 15:10 36.5 C 73 18 152/79 H 96 Nasal Cannula 11/12/22 11:15 36.3 C L 63 18 98/62 L 95 Nasal Cannula 11/12/22 07:59 36.5 C 65 20 107/62 97 Nasal Cannula 11/12/22 07:17 64 11/12/22 07:07 Nasal Cannula O2 Flow Rate 11/12/22 16:11 11/12/22 15:10 2 11/12/22 11:15 2 11/12/22 07:59 2 11/12/22 07:17 11/12/22 07:07 2 Laboratory Results Cardiac Enzymes 11/12/22 Range/Units 07:09 AST 23 (13-39) U/L Coagulation 11/12/22 Range/Units 07:09 PT 18.8 H (9.0-12.0) Seconds CBC 11/12/22 Range/Units 07:09 WBC 5.50 (4.8-10.8) K/ul RBC 3.85 L (4.70-6.10) M/uL Hgb 11.5 L (14.0-18.0) g/dl Hct 34.0 L (42.0-52.0) % Plt Count 103 L (130-400) K/uL Neut # (Auto) 4.14 (1.40-6.50) K/uL Lymph # (Auto) 0.85 L (1.2-3.4) K/uL [place] # (Auto) 0.46 (0.11-0.59) K/uL Eos # (Auto) 0.01 (0-0.50) K/uL Baso # (Auto) 0.01 (0-0.2) K/uL Comprehensive Metabolic Panel 11/12/22 Range/Units 07:09 Sodium 137 (136-145) mmol/L Potassium 3.2 L (3.5-5.1) mmol/L Chloride 100 (98-107) mmol/L Carbon Dioxide 28 (21-32) mmol/L BUN 28 H (6-23) mg/dl Creatinine 0.85 (0.6-1.4) mg/dl Glucose 141 H (70-99(Fasting)) mg/dl Calcium 8.7 (8.5-10.1) mg/dl AST 23 (13-39) U/L ALT 26 (7-52) U/L Alkaline Phosphatase 194 H (34-104) U/L Total Protein 5.5 L (6.0-8.3) gm/dl Albumin 3.3 L (3.4-5.0) gm/dl Intake and Output 11/12/22 11/12/22 11/12/22 06:59 14:59 22:59 Intake Total 467 / 1067 898 / 898 Output Total 350 / 751 Balance 117 / 316 897 / 897 Intake: IV 467 / 467 498 / 498 Sodium Chloride 0.9% 500 ml @ 467 / 467 498 / 498 60 mls/hr IV .[id number] [facility] Rx#: [id number] Oral 400 / 400 Output: Urine 350 / 750 # Bowel Movements Other: # Unmeasured Voids 1 Weight 97.5 kg
[2022-11-12] MEDS: ATORVASTATIN 40 MG TAB PO SCH (21:22)
[2022-11-12] MEDS: LANTUS PER UNIT CHARGE SQ SCH (21:33)
--- NOTE | 2022-11-13 07:22 | Cardiology Progress Note ---
Date of Service November 13, 2022 Assessment & Plan (1) Acute hypoxemic respiratory failure: Plan: Medically complex 81-year-old male- Per review of the patient's chart, he has had progressive dyspnea on exertion for 6 months, prompting electrophysiology consultation, cardiac catheterization, and subsequent transcatheter aortic valve implantation procedure performed 10/24/2022. Recent echocardiogram performed at this institution 10/28/2022 revealed stable transcatheter aortic valve prosthesis function compared to the previous performed 1 day post procedure at [facility] [place] on 10/25/2022. Patient with findings of ischemic cardiomyopathy, LVEF 35% with chronic apical septal, anteroseptal scar. He also has findings of pulmonary metastatic disease and metastatic disease to the bones on recent CT of the chest. -Cause of shortness of breath is likely multifactorial given his history of HFrEF/ICM (LVEF 35-39%), severe s/p TAVR on 10/24 with deconditioning, mild anemia, prior PAF with RVR, and metastatic prostate CA with lung and liver mets. Last PFTs also showing mild restrictive lung disease. -Torsemide and losartan on hold since 11/12 due to a transient episode of lightheadedness. His most recent blood pressure is improved to 120s-150/70s-80s having been 90s/50s. Discontinue Losartan- can consider restarting as an outpatient should BP increase. 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 Recommend resuming Torsemide 20 mg daily at discharge. -He has received potassium supplementation for hypokalemia. -INR 1.9 today, down from previous measurements of 7.5 and 2.9. Coumadin 5 mg daily reinitiated yesterday, 11/12- continue. -Recommend re-evaluating patient for home o2 prior to DC Plan Case discussed with Dr. Jeanine Raymundo for discharge from a cardiology standpoint. Admission and Anticipated Discharge Date Admission Date: November 09, 2022 Supervising Physician Co-Signing Physician Notes Pt seen and examined. Agree with findings and plan as outlined by JESSICA Richey with additions as note below: S: Denies SOB at rest . Exam: CV: regular rhythm, no murmur, no edema Data: INR 1.9 Impression: As noted above. Plan: Stable for DC to resume [employer] SLATE dose of torsemide tomorrow. Continue to hold losartan at discharge. Coumadin 5 mg today. Subjective Patient seen and examined at bedside. Telemetry and chart reviewed. Upon entrance into the room patient resting comfortably in bed. No acute concerns. States he is feeling well. Eager for discharge- hoping to go to rehab. Continues to wear supplemental oxygen. No chest pain, sob improved- only notes with moderate exertion. No orthopnea, PND, or lower extremity edema. No palpitations. Lightheadedness resolved. Tele: Sinus rhythm with atrial pacing in the 60s . Review of Systems Review of Systems: All systems reviewed & are unremarkable except as noted in HPI & below Physical Exam Constitutional: WD/WN, vitals as above no acute distress Eyes: PERRL, conjunctivae normal, anicteric sclerae Neck: trachea midline, no thyromegaly Respiratory: normal respiratory effort, lungs clear to auscultation Cardiovascular: Rate/Rhythm: regular rate and regular rhythm Heart Sounds: normal S1, normal S2 and + murmur (faint systolic murmur ) Vessels: no JVD Extremities: no edema Chest (Breasts): Chest: + pacemaker (ppm pocket healed) Gastrointestinal (Abdomen): normal bowel sounds, soft, nontender, no hepatosplenomegaly Musculoskeletal: no cyanosis or clubbing, extremities motor strength 5/5 Skin: no rashes, warm and dry Psychiatric: A+Ox3, euthymic affect Results & Data ([facility]) Vital Signs (Past 12 Hours) Vital Signs Temp Pulse Pulse Resp BP Pulse Ox O2 Del Method 11/13/22 07:16 63 11/12/22 20:00 Nasal Cannula 11/13/22 03:07 36.6 C 72 18 150/80 H 97 Nasal Cannula 11/12/22 22:07 60 11/12/22 22:59 37.2 C 60 18 122/68 95 Nasal Cannula 11/12/22 20:00 36.4 C L 72 16 147/75 H 96 Room Air O2 Flow Rate 11/13/22 07:16 11/12/22 20:00 2 11/13/22 03:07 2 11/12/22 22:07 11/12/22 22:59 2 11/12/22 20:00 Laboratory Results Cardiac Enzymes 11/12/22 Range/Units 07:09 AST 23 (13-39) U/L Coagulation 11/13/22 Range/Units 06:34 PT 19.5 H (9.0-12.0) Seconds Comprehensive Metabolic Panel 11/12/22 11/13/22 Range/Units 07:09 06:34 Sodium 137 138 (136-145) mmol/L Potassium 3.2 L 4.1 D (3.5-5.1) mmol/L Chloride 100 102 (98-107) mmol/L Carbon Dioxide 28 34 H (21-32) mmol/L BUN 28 H 19 (6-23) mg/dl Creatinine 0.85 0.78 (0.6-1.4) mg/dl Glucose 141 H 134 H (70-99(Fasting)) mg/dl Calcium 8.7 8.7 (8.5-10.1) mg/dl AST 23 (13-39) U/L ALT 26 (7-52) U/L Alkaline Phosphatase 194 H (34-104) U/L Total Protein 5.5 L (6.0-8.3) gm/dl Albumin 3.3 L (3.4-5.0) gm/dl Intake and Output 11/12/22 11/13/22 11/13/22 22:59 06:59 14:59 Intake Total 300 / 1298 100 / 1298 Balance 300 / 1297 100 / 1297 Intake: Oral 300 / 800 100 / 800 Other: # Unmeasured Voids 1 1 Weight 93.8 kg
[2022-11-13 07:34] LABS: INR 1.9 (0.9-1.1); Prothrombin Time 19.5 Seconds (9.0-12.0)
[2022-11-13 07:58] LABS: Calcium 8.7 mg/dl (8.5-10.1); Magnesium 2.1 mg/dl (1.7-2.4); Potassium 4.1 mmol/L (3.5-5.1)
[2022-11-13 08:07] LABS: BUN Creatinine Ratio 24.4 (10-20); Creatinine Clr Calc Pharmacy 82.6 ml/min; Est GFR (African American) 97.4 ml/min; Est GFR (Non-African American) 84.1 ml/min
[2022-11-13] MEDS: POTASSIUM CHLORIDE CRTAB 20 MEQ TABCR PO SCH ×2 (08:09→20:16)
[2022-11-13] MEDS: FAMOTIDINE 20 MG TAB PO SCH ×2 (08:09→20:16)
[2022-11-13] MEDS: METOPROLOL SUCC 25MG EXT REL TAB PO SCH ×2 (08:09→20:15)
[2022-11-13] MEDS: PANTOprazole 40 MG TAB PO SCH ×2 (08:09→20:15)
[2022-11-13] MEDS: ASPIRIN 81 MG ECTAB PO SCH (08:10)
[2022-11-13] MEDS: FLUTICASONE PROPIONATE NA SPR 16 GM BTL SCH ×2 (08:10→20:16)
[2022-11-13] MEDS: TAMSULOSIN HCL 0.4 MG CAP PO SCH (08:10)
[2022-11-13] MEDS: predniSONE 5 MG TAB PO SCH ×2 (08:10→15:55)
[2022-11-13] MEDS: LORATADINE 10 MG TAB PO SCH (08:10)
[2022-11-13] MEDS: CEROVITE ADV FORMULA TAB PO SCH (08:10)
[2022-11-13] MEDS: POTASSIUM CHLORIDE 10 MEQ TABCR PO SCH (08:10)
[2022-11-13] MEDS: AMIODARONE 200 MG TAB PO SCH (08:10)
[2022-11-13] MEDS: MVI SCH (08:11)
[2022-11-13] MEDS: PRESERVISION AREDS SCH (08:11)
[2022-11-13] MEDS: INSULIN ASPART PER UNIT SC SCH ×4 (08:17→20:38)
--- NOTE | 2022-11-13 15:05 | Hospitalist Progress Note ---
Date of Service November 13, 2022 Assessment & Plan (1) Acute hypoxemic respiratory failure: Plan: Per admitting service notes with addendum: Documented PO2 of 41 on today's ABG Underlying restrictive lung disease/AL on CPAP/pulmonary hypertension as per records Multifactorial : Enlarging pulmonary/mediastinal mets on imaging, hx metastatic prostate cancer status post radiation status post Lupron on prednisone, patient Zytiga chemotherapy on hold due to cardiotoxicity deconditioning following recent heart surgery, history severe status post TAVR Echocardiogram during previous admission showing no valvular function CT angiogram of the chest: No pulmonary embolism chest x-ray: No pleural effusion, pneumonia, infiltrates Hypoxia likely multifactorial secondary to underlying asthma/COPD, pulmonary hypertension, pulmonary mets, deconditioning Continue supplemental oxygen Pulmonary service consulted- recommendations noted Cardiology service consulted- pacemaker interrogation ok continue O2 supplement PT/OT eval will need to transition to Acute Rehab Dizziness noted yesterday upon standing, walking to the bathroom BP on the lower side given IV fluids overnight hold Torsemide, Losartan resolved today Resume torsemide tomorrow Discontinue losartan Monitor blood pressure Supratherapeutic INR INR 1.9 continue coumadin Chronic systolic heart failure (EF 35%, TTE 2022), ischemic cardiomyopathy on the dry side management per #2 History CAD status post CABG status post stent/hx PVD as per records hyperlipidemia on statin Rx SSS sp PPM, hx PE/DVT as per records DM2 on oral medications, suboptimal control as of recent hemoglobin A1c of 7.6 last October 2022 chronic anemia, hemoglobin better at baseline past tobacco abuse PT OT eval DVT prophylaxis: coumadin Full code Disposition Acute Rehab tomorrow plan of care discussed with patient all questions answered he is understanding, agreeable, comfortable with the plan of care Admission and Anticipated Discharge Date Admission Date: November 09, 2022 Subjective Follow-up for dyspnea on exertion, etc. Seen sitting up in bed, comfortable, not in distress States he feels fine overall No dizziness with ambulation to the bathroom No chest pain, shortness of breath, palpitations No other symptoms Review of Systems Review of Systems: all noted and negative except for above Physical Exam Physical Exam: General- oriented x 2, not in distress, speaks in sentences with no effort or accessory muscle use Eyes- anicteric Neck- no JVD Lungs- clear BS bilaterally, no crackles Heart- normal rate, regular rhythm; no murmurs Abdomen- normal bowel sounds, nondistended, soft, no tender Extremities- no pretibial edema, no calf tenderness Neuro- alert, oriented x 3; no gross focal neurologic deficits Skin- warm & dry Results & Data Results & Data ([facility]) Vital Signs (Past 12 Hours) Vital Signs Temp Pulse Pulse Resp BP Pulse Ox O2 Del Method 11/13/22 14:57 36.6 C 63 18 123/74 96 Room Air 11/13/22 14:26 96 Room Air 11/13/22 10:59 36.5 C 93 H 18 129/75 94 Nasal Cannula 11/13/22 08:43 Nasal Cannula 11/13/22 07:45 36.5 C 61 18 111/65 97 Nasal Cannula 11/13/22 07:16 63 11/13/22 03:07 36.6 C 72 18 150/80 H 97 Nasal Cannula O2 Flow Rate 11/13/22 14:57 11/13/22 14:26 11/13/22 10:59 2 11/13/22 08:43 2 11/13/22 07:45 2 11/13/22 07:16 11/13/22 03:07 2 all noted and reviewed including below
[2022-11-13] MEDS: WARFARIN SOD 5 MG TAB PO SCH (15:54)
[2022-11-13] MEDS: ATORVASTATIN 40 MG TAB PO SCH (20:15)
[2022-11-13] MEDS: LANTUS PER UNIT CHARGE SQ SCH (20:38)
[2022-11-14 07:17] LABS: INR 2.2 (0.9-1.1); Prothrombin Time 22.4 Seconds (9.0-12.0)
[2022-11-14] MEDS: INSULIN ASPART PER UNIT SC SCH ×2 (08:18→12:22)
[2022-11-14] MEDS: AMIODARONE 200 MG TAB PO SCH (08:19)
[2022-11-14] MEDS: predniSONE 5 MG TAB PO SCH (08:19)
[2022-11-14] MEDS: LORATADINE 10 MG TAB PO SCH (08:19)
[2022-11-14] MEDS: ASPIRIN 81 MG ECTAB PO SCH (08:19)
[2022-11-14] MEDS: FAMOTIDINE 20 MG TAB PO SCH (08:19)
[2022-11-14] MEDS: POTASSIUM CHLORIDE CRTAB 20 MEQ TABCR PO SCH (08:19)
[2022-11-14] MEDS: TAMSULOSIN HCL 0.4 MG CAP PO SCH (08:19)
[2022-11-14] MEDS: CEROVITE ADV FORMULA TAB PO SCH (08:19)
[2022-11-14] MEDS: PANTOprazole 40 MG TAB PO SCH (08:19)
[2022-11-14] MEDS: METOPROLOL SUCC 25MG EXT REL TAB PO SCH (08:20)
[2022-11-14] MEDS: FLUTICASONE PROPIONATE NA SPR 16 GM BTL SCH (08:21)
[2022-11-14] MEDS: POTASSIUM CHLORIDE 10 MEQ TABCR PO SCH (08:21)
[2022-11-14] MEDS: PRESERVISION AREDS SCH (08:22)
[2022-11-14] MEDS: MVI SCH (08:22)
[2022-11-14] MEDS: TORSEMIDE 20 MG TAB PO SCH (08:35)
--- NOTE | 2022-11-14 09:31 | Cardiology Progress Note ---
Date of Service November 14, 2022 Assessment & Plan (1) Acute hypoxemic respiratory failure: Plan: Medically complex 81-year-old male- Per review of the patient's chart, he has had progressive dyspnea on exertion for 6 months, prompting electrophysiology consultation, cardiac catheterization, and subsequent transcatheter aortic valve implantation procedure performed 10/24/2022. Recent echocardiogram performed at this institution 10/28/2022 revealed stable transcatheter aortic valve prosthesis function compared to the previous performed 1 day post procedure at [facility] on 10/25/2022. Patient with findings of ischemic cardiomyopathy, LVEF 35% with chronic apical septal, anteroseptal scar. He also has findings of pulmonary metastatic disease and metastatic disease to the bones on recent CT of the chest. -Cause of shortness of breath is likely multifactorial given his history of HFrEF/ICM (LVEF 35-39%), severe s/p TAVR on 10/24 with deconditioning, mild anemia, prior PAF with RVR, and metastatic prostate CA with lung and liver mets. Last PFTs also showing mild restrictive lung disease. -Torsemide and losartan on hold since 11/12 due to a transient episode of lightheadedness. His most recent blood pressure is improved to 120s-150/70s-80s having been 90s/50s. Discontinue Losartan- can consider restarting as an outpatient should BP increase. 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 Recommend resuming Torsemide 20 mg daily at discharge. Repeat BMP in 1 after discharge. -INR 2.2 today, down from previous measurements of 7.5 and 2.9. Coumadin 5 mg daily reinitiated, 11/12- continue. -Recommend re-evaluating patient for home o2 prior to DC Plan Case discussed with Dr. Jeanine Raymundo for discharge from a cardiology standpoint. Admission and Anticipated Discharge Date Admission Date: November 09, 2022 Supervising Physician Co-Signing Physician Notes Case discussed with JESSICA Green. Agree with findings and plans as outlined in the progress note. Patient discharged prior to me having the opportunity to examine him today. I however agreed with the plan for discharge. Subjective Upon entrance into the room patient resting comfortably in bed. No acute concerns over night. Feeling well this am- not using o2. Eager for discharge. Tele: Paced in the 60-70s Review of Systems Review of Systems: All systems reviewed & are unremarkable except as noted in HPI & below Physical Exam Constitutional: WD/WN, vitals as above no acute distress Eyes: PERRL, conjunctivae normal, anicteric sclerae Neck: trachea midline, no thyromegaly Respiratory: normal respiratory effort, lungs clear to auscultation Cardiovascular: Rate/Rhythm: regular rate and regular rhythm Heart Sounds: normal S1, normal S2 and + murmur (faint systolic murmur ) Vessels: no JVD Extremities: no edema Chest (Breasts): Chest: + pacemaker (ppm pocket healed) Gastrointestinal (Abdomen): normal bowel sounds, soft, nontender, no hepatosplenomegaly Musculoskeletal: no cyanosis or clubbing, extremities motor strength 5/5 Skin: no rashes, warm and dry Psychiatric: A+Ox3, euthymic affect Results & Data ([facility]) Vital Signs (Past 12 Hours) Vital Signs Temp Pulse Pulse Resp BP Pulse Ox O2 Del Method 11/14/22 07:51 36.3 C L 60 20 147/76 H 97 Room Air 11/14/22 07:25 60 11/14/22 03:32 37.0 C 65 20 122/73 96 Room Air 11/13/22 23:42 36.6 C 63 18 125/71 96 Nasal Cannula O2 Flow Rate 11/14/22 07:51 11/14/22 07:25 11/14/22 03:32 11/13/22 23:42 2 Laboratory Results Coagulation 11/14/22 Range/Units 06:18 PT 22.4 H (9.0-12.0) Seconds Intake and Output 11/13/22 11/14/22 11/14/22 22:59 06:59 14:59 Intake Total 260 / 1515 320 / 1515 Balance 260 / 1515 320 / 1515 Intake: Oral 260 / 1515 320 / 1515 Other: Other Intake Source Sips with meds # Unmeasured Voids 2 Weight 97.5 kg Weight Measurement Method Built in [facility]
[2022-11-14 11:13] VITALS: TEMP 97.5; O2SAT 95
--- NOTE | 2022-11-14 12:21 | Hospitalist Progress Note ---
Date of Service November 14, 2022 Assessment & Plan (1) Hypoxemia: (2) Dyspnea on exertion: Plan: (1) Acute hypoxemic respiratory failure: Plan: Per admitting service notes with addendum: 80% O2 sat at the ER Underlying restrictive lung disease/AL on CPAP/pulmonary hypertension as per records Multifactorial : Enlarging pulmonary/mediastinal mets on imaging, hx metastatic prostate cancer status post radiation status post Lupron on prednisone, patient Zytiga chemotherapy on hold due to cardiotoxicity deconditioning following recent heart surgery, history severe status post TAVR 11/13 Echocardiogram during previous admission showing no valvular function CT angiogram of the chest: No pulmonary embolism chest x-ray: No pleural effusion, pneumonia, infiltrates Hypoxia likely multifactorial secondary to underlying asthma/COPD, pulmonary hypertension, pulmonary mets, deconditioning Continue supplemental oxygen Pulmonary service consulted- recommendations noted Cardiology service consulted- pacemaker interrogation unrevealing continue O2 supplement when ambulating, wean off accordingly continue PT/OT transition to Acute Rehab Dizziness noted while admitted upon standing, walking to the bathroom BP on the lower side given IV fluids held Torsemide, Losartan BP improved Resume torsemide Discontinue losartan Monitor blood pressure Repeat basic medical profile in 1 to 2 days, monitor potassium closely Supratherapeutic INR INR 2.2 continue coumadin 5mg daily Changed from 7.5 mg p.o. Wednesdays, and 5 mg other days Monitor INR daily Chronic systolic heart failure (EF 35%, TTE 2022), ischemic cardiomyopathy on the dry side management per #2 History CAD status post CABG status post stent/hx PVDas per records hyperlipidemiaon statin Rx SSS sp PPM, hx PE/DVTas per records DM2on oral medications, suboptimal control as of recent hemoglobin A1c of 7.6 last October 2022 chronic anemia, hemoglobin better at baseline past tobacco abuse PT OT eval DVT prophylaxis: coumadin Full code Disposition Acute Rehab ff up with Cardiology in 2 weeks plan of care discussed with patient all questions answered he is understanding, agreeable, comfortable with the plan of care Admission and Anticipated Discharge Date Admission Date: November 09, 2022 Subjective ff up for dyspnea on exertion, etc seen resting in bed, comfortable in good spirits no chest pain, dyspnea, palpitations, dizziness ambulates with no problem, no dyspnea no other symptoms states he is ready to transition to [facility] today Review of Systems Review of Systems: all noted and negative except for above Physical Exam Physical Exam: General- oriented x 3, not in distress, speaks in sentences with no effort or accessory muscle use Eyes- anicteric Neck- no JVD Lungs- clear BS bilaterally, no rales/wheezes Heart- normal rate, regular rhythm; no murmurs Abdomen- normal bowel sounds, nondistended, soft, nontender Extremities- no pretibial edema, no calf tenderness Neuro- alert, oriented x 3; no gross focal neurologic deficits Skin- warm & dry Results & Data Results & Data ([facility]) Vital Signs (Past 12 Hours) Vital Signs Temp Pulse Pulse Resp BP Pulse Ox O2 Del Method 11/14/22 08:30 Room Air 11/14/22 11:13 36.4 C L 56 L 20 134/71 95 Room Air 11/14/22 07:51 36.3 C L 60 20 147/76 H 97 Room Air 11/14/22 07:25 60 11/14/22 03:32 37.0 C 65 20 122/73 96 Room Air O2 Flow Rate 11/14/22 08:30 96 11/14/22 11:13 11/14/22 07:51 11/14/22 07:25 11/14/22 03:32 all noted and reviewed including below
--- NOTE | 2022-11-14 13:22 | Discharge Summary ---
Discharge Summary Date of Service November 14, 2022 Notes For Next Care Provider Monitor BP and volume status closely. Losartan discontinued due to low blood pressure. Repeat INR daily. Adjust Coumadin accordingly. Admitted with supratherapeutic INR. Coumadin 5 mg daily. Usually on on 7.5 mg p.o. Wednesdays, 5 mg other days. Repeat basic metabolic profile in 2 to 3 days. Monitor potassium level closely. Medication Changes From Visit As per above Admission HPI Per Admitting Provider History obtained from patient, family, and records. Medical history significant for chronic systolic heart failure (EF 35-40%, TTE 2022) secondary ischemic cardiomyopathy, CAD status post CABG status post stent/hx PVD as per records, SSS status post PPM/ hx PE/DVT as per records on Coumadin, severe status post TAVR, hyperlipidemia on statin Rx, pulmonary hypertension, AL on CPAP, DM2 on oral medications, metastatic prostate cancer status post radiation sp Lupron status post chemotherapy, chronic anemia (baseline hemoglobin 11-12), past tobacco abuse. Last confinement October 28-2022 for shortness of breath on exertion attributed to increasing size of pulmonary nodules (prostate cancer mets) and [place] [facility] [place] Two-step exercise test O2 sats 94% on exertion, greater than 90% at rest. Patient did not qualify for home O2. Patient discharged home. Outpatient cardiac rehab recommended. Patient still with exertional SOB upon return home. Symptoms leading to fall 3 days ago. Patient seen at the ER but subsequently sent home. O2 sats 70s at home the last few days as per /family. Patient denies chest pain, cough symptoms, fluid retention. Patient directed to ER by outpatient providers. O2 sats noted to be 80s at the ER. 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 Admission Exam Per Admitting Provider GENERAL: Comfortable, pleasant, obese, no respiratory distress SKIN: Pallor, warm HEENT: Alopecia, pale palpebral conjunctivae, no ptosis, dry buccal mucosa, nasal cannula in place NECK : Supple, short neck, no tenderness CHEST : Decreased breath sounds, no tenderness HEART : RRR, systolic murmur ABDOMEN: Some distention, nontender EXTREMITIES : Minimal LE swelling, no LE tenderness, no other conspicuous deformities noted NEUROLOGIC : Coherent, no facial asymmetry, no other gross focality Principal Dx & Hospital Course #1 = Principal Diagnosis (1) Hypoxemia: (2) Dyspnea on exertion: (1) Acute hypoxemic respiratory failure: Plan: Per admitting service notes with addendum: 80% O2 sat at the ER Underlying restrictive lung disease/AL on CPAP/pulmonary hypertension as per records Multifactorial : Enlarging pulmonary/mediastinal mets on imaging, hx metastatic prostate cancer status post radiation status post Lupron on prednisone, patient Zytiga chemotherapy on hold due to cardiotoxicity deconditioning following recent heart surgery, history severe status post TAVR 11/13 Echocardiogram during previous admission showing no valvular function CT angiogram of the chest: No pulmonary embolism chest x-ray: No pleural effusion, pneumonia, infiltrates Hypoxia likely multifactorial secondary to underlying asthma/COPD, pulmonary hypertension, pulmonary mets, deconditioning Continue supplemental oxygen Pulmonary service consulted- recommendations noted Cardiology service consulted- pacemaker interrogation unrevealing continue O2 supplement when ambulating, wean off accordingly continue PT/OT transition to Acute Rehab Dizziness noted while admitted upon standing, walking to the bathroom BP on the lower side given IV fluids held Torsemide, Losartan BP improved Resume torsemide Discontinue losartan Monitor blood pressure Repeat basic medical profile in 1 to 2 days, monitor potassium closely Supratherapeutic INR INR 2.2 continue coumadin 5mg daily Changed from 7.5 mg p.o. Wednesdays, and 5 mg other days Monitor INR daily Chronic systolic heart failure (EF 35%, TTE 2022), ischemic cardiomyopathy on the dry side management per #2 History CAD status post CABG status post stent/hx PVDas per records hyperlipidemiaon statin Rx SSS sp PPM, hx PE/DVTas per records DM2on oral medications, suboptimal control as of recent hemoglobin A1c of 7.6 last October 2022 chronic anemia, hemoglobin better at baseline past tobacco abuse PT OT eval DVT prophylaxis: coumadin Full code Disposition Acute Rehab ff up with Cardiology in 2 weeks plan of care discussed with patient all questions answered he is understanding, agreeable, comfortable with the plan of care Discharge Exam General- oriented x 3, not in distress, speaks in sentences with no effort or accessory muscle use Eyes- anicteric Neck- no JVD Lungs- clear BS bilaterally, no rales/wheezes Heart- normal rate, regular rhythm; no murmurs Abdomen- normal bowel sounds, nondistended, soft, nontender Extremities- no pretibial edema, no calf tenderness Neuro- alert, oriented x 3; no gross focal neurologic deficits Skin- warm & dry Updated Medication List Medication Instructions Recorded Confirmed Type glucosamine sulf dipot 1 cap PO BID 02/21/19 11/08/22 History chlr,msm,chond 550 mg-C 30 mg-erum 1 mg capsule (Glucosamine Chondroitin) nitroglycerin 0.4 mg sublingual 0.4 mg sublingual DIRECTED PRN 02/21/19 11/08/22 History tablet (Nitrostat) Chest Pain omeprazole 20 mg capsule,delayed 20 mg PO BID 02/21/19 11/08/22 History release potassium chloride 10 mEq 10 meq PO DAILY 02/21/19 11/08/22 History tablet,extended release(part/cryst) (Klor-Con M) cholecalciferol (vitamin D3) 25 1,000 mcg PO DAILY 01/08/21 11/08/22 History mcg (1,000 unit) tablet vit C 250 mg-vit E 90 mg-zinc 40 2 tab PO DAILY 10/16/21 11/08/22 History mg-copper 1 [id number] capsule (PreserVision AREDS-2) famotidine 20 mg tablet (Pepcid) 20 mg PO BID 03/17/22 11/08/22 History prednisone 5 mg tablet 5 mg PO BID 03/17/22 11/08/22 History acetaminophen 325 mg tablet 650 - 975 mg PO DAILY PRN 03/28/22 11/08/22 History (Tylenol) PAIN/FEVER ascorbic acid (vitamin C) 500 mg 1,000 mg PO DAILY 03/28/22 11/08/22 History tablet (Vitamin C) hydrocortisone 2.5 % topical cream 1 applic topical DAILY PRN 03/28/22 11/08/22 History UNDERARMS FOR FLARE UPS albuterol sulfate 90 mcg/actuation 1 inh inhalation Q6H PRN Shortness 07/04/22 11/08/22 History aerosol inhaler (Ventolin HFA) Of Breath Or Wheezing amiodarone 200 mg tablet 200 mg PO DAILY 07/04/22 11/08/22 History loratadine 10 mg tablet (Claritin) 10 mg PO DAILY 07/04/22 11/08/22 History aspirin 81 mg chewable tablet 81 mg PO DAILY 10/15/22 11/08/22 History glipizide 5 mg tablet 2.5 mg PO DAILY 10/15/22 11/08/22 History tacrolimus 0.1 % topical ointment 1 applic topical BID PRN FLARES OF 10/15/22 11/08/22 History PSORIASIS tamsulosin 0.4 mg capsule (Flomax) 0.4 mg PO DAILY 10/15/22 11/08/22 History warfarin 5 mg tablet See Rx Instructions .Route .COMPLEX 10/15/22 11/08/22 History atorvastatin 40 mg tablet (Lipitor) 40 mg PO PM 10/27/22 11/08/22 History metronidazole 500 mg tablet 500 mg PO TID 10/27/22 11/08/22 History losartan 25 mg tablet 25 mg PO QAM 30 days #30 tabs 10/29/22 11/08/22 Rx metoprolol succinate 25 mg 25 mg PO BID 30 days #60 tabs 10/29/22 11/08/22 Rx tablet,extended release 24 hr fluticasone propionate 50 2 spray intranasal BID 11/05/22 11/08/22 History mcg/actuation nasal spray,suspension psyllium husk 0.52 gram capsule 0.52 g PO BID 11/05/22 11/08/22 History torsemide 20 mg tablet 20 mg PO QAM 11/05/22 11/08/22 History warfarin 5 mg tablet 5 mg PO DAILY@1600 #30 tabs 11/14/22 Rx Hospital Stay Data Consultations 11/08/22 20:29 ED Decision to Admit Stat 11/09/22 07:55 Consult Pulmonology Routine 11/09/22 17:26 Consult Cardiology Routine Procedures Performed CXR COMPARISON: Chest radiograph November 05, 2022, CTA chest 10/27/2022. TECHNIQUE: AP view the chest FINDINGS: Cardiomediastinal and hilar silhouettes are unchanged. Hilar lymphadenopathy redemonstrated along with multifocal pulmonary metastasis. Osseous metastatic disease better seen on the comparison chest CT. Left subclavian pacer. Prior median sternotomy. Mild chronic interstitial coarsening of the lung bases. And pneumothorax. Unchanged mild blunting of the costophrenic angles. IMPRESSION: 1. No acute processes of the chest. 2. Metastatic disease of the chest including gregory, pulmonary and osseous disease is better evaluated on the chest CT from 10/27/2022. ACT 112: Negative or not required by law. The above report was generated using voice recognition software. It may contain grammatical, syntax or spelling errors. Electronically signed by: Layo Hooks M.D. 11/08/2022 6:55 PM Pending Results Patient Have Any Pending Studies at Discharge: No Discharge Instructions Given to Patient (Per Discharging Provider) 2 liters of oxygen with ambulation, wean off accordingly Losartan on hold, monitor BP and volume status closely Repeat basic metabolic panel in 2 days. Monitor K level closely. Repeat INR tomorrow and daily. Patient admitted with supratherapeutic INR. Total Time Total Time Spent Total Time Spent (In Minutes): >30 minutes
[2022-11-14 15:31] VITALS: BP 146/68
[2022-11-14] MEDS: WARFARIN SOD 5 MG TAB PO SCH (16:01)
[2022-11-14 16:22] VITALS: PULSE 61
== END 2022-11-14 16:40 | DRG 180 ==
LOC: ED 18:03 → 2N 11-09 00:24

== ENCOUNTER 2022-12-15 15:18 | Inpatient (IN) ==
[2022-12-15] MEDS ORDERED: SODIUM CHLORIDE 0.9% 1000ML 1,000 ML IV ONE (17:40)
--- NOTE | 2022-12-15 17:47 | Emergency Department Note ---
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 He restarted chemo on Sunday he sees Dr. Contreras. He had severe diarrhea starting 4:00 in the morning he has not been eating he has had no significant nausea or vomiting his thinks he may have had blood in his stool at 1 point as well. He is on Coumadin for valve replacement and cardiac disease. He has had no fever. He feels generally weak. He does not have a port Home Medications Medication Instructions Recorded Confirmed Type glucosamine sulf dipot 1 cap PO AMHS 02/21/19 12/15/22 History chlr,msm,chond 550 mg-C 30 mg-ermu 1 mg capsule (Glucosamine Chondroitin) nitroglycerin 0.4 mg sublingual 0.4 mg sublingual DIRECTED PRN 02/21/19 12/15/22 History tablet (Nitrostat) Chest Pain omeprazole 20 mg capsule,delayed 20 mg PO BID 02/21/19 12/15/22 History release potassium chloride 10 mEq 20 meq PO QAM 02/21/19 12/15/22 History tablet,extended release(part/cryst) (Klor-Con M) cholecalciferol (vitamin D3) 25 1,000 mcg PO QAM 01/08/21 12/15/22 History mcg (1,000 unit) tablet vit C 250 mg-vit E 90 mg-zinc 40 2 tab PO DAILY 10/16/21 12/15/22 History mg-copper 1 [id number] capsule (PreserVision AREDS-2) famotidine 20 mg tablet (Pepcid) 20 mg PO BID 03/17/22 12/15/22 History prednisone 5 mg tablet 5 mg PO AMHS 03/17/22 12/15/22 History acetaminophen 325 mg tablet 650 - 975 mg PO DAILY PRN 03/28/22 12/15/22 History (Tylenol) PAIN/FEVER ascorbic acid (vitamin C) 500 mg 1,000 mg PO DAILY 03/28/22 12/15/22 History tablet (Vitamin C) hydrocortisone 2.5 % topical cream 1 applic topical DAILY PRN 03/28/22 12/15/22 History UNDERARMS FOR FLARE UPS amiodarone 200 mg tablet 200 mg PO QAM 07/04/22 12/15/22 History loratadine 10 mg tablet (Claritin) 10 mg PO QAM 07/04/22 12/15/22 History aspirin 81 mg chewable tablet 81 mg PO QAM 10/15/22 12/15/22 History glipizide 5 mg tablet 2.5 mg PO DAILY 10/15/22 12/15/22 History tacrolimus 0.1 % topical ointment 1 applic topical BID PRN FLARES OF 10/15/22 12/15/22 History PSORIASIS tamsulosin 0.4 mg capsule (Flomax) 0.4 mg PO QAM 10/15/22 12/15/22 History atorvastatin 40 mg tablet (Lipitor) 40 mg PO PM 10/27/22 12/15/22 History fluticasone propionate 50 2 spray intranasal BID 11/05/22 12/15/22 History mcg/actuation nasal spray,suspension torsemide 20 mg tablet 20 mg PO QAM 11/05/22 12/15/22 History warfarin 5 mg tablet 5 mg PO DAILY@1600 #30 tabs 11/14/22 12/15/22 Rx diphenoxylate-atropine 2.5 1 tab PO QID PRN Diarrhea 12/15/22 12/15/22 History mg-0.025 mg tablet metoprolol succinate 25 mg 25 mg PO AMHS 12/15/22 12/15/22 History tablet,extended release 24 hr nystatin 100,000 unit/gram topical 1 applic topical TID 12/15/22 12/15/22 History powder ondansetron HCl 8 mg tablet 8 mg PO Q8H PRN Nausea 12/15/22 12/15/22 History prochlorperazine maleate 10 mg 10 mg PO Q6 PRN Nausea 12/15/22 12/15/22 History tablet Allergies Allergy/AdvReac Type Severity Reaction Status Date / Time No Known Allergies Allergy Verified 12/15/22 20:15 Past Med/Surg History Medical History Acute respiratory failure with hypoxia Aortic stenosis Asthma Atrial fibrillation with RVR CAD (coronary artery disease) Status post PCI with a BMS to the mid LAD on 05/16/2016. 2.May 26, 2016 diagnostic cardiac catheterization at [facility], Dr. 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 Also, far beyond the stent, there was visible healed dissection flap, Type B, non-o bstructive. 3.Status post CABG x 1 with a ABRAMS to LAD for persistent angina, May 2016. 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 Surgical History H/O esophagogastroduodenoscopy Hx of total knee arthroplasty S/P CABG x 1 S/P cholecystectomy S/P hip replacement S/P knee replacement Family History Other Diabetes Heart disease Social History Smoking Status: Never smoker Tobacco Type: Cigarettes Cigarettes Per Day: 40; Second Hand Exposure: No; Hx Alcohol Use: No Hx Substance Use: No Preferred Language: Telugu Communication Ability: Effective Visual Impairment: No Limitations Hearing Ability: Normal Distribution Lead Required: No Beliefs That Will Affect Care: None marital status: Current Living Situation: Spouse Current Living Situation Comment: Home with Feels Safe at Home: Yes Assistive Devices: Cane, CPAP and Walker Immunizations: Past medical historyshe did have a valve replacement done in October. Long- term anticoagulation Review of Systems A total of 10 systems reviewed and were otherwise negative Physical Exam Vital Signs Vital Signs - 24 hr 12/15/22 15:22 12/15/22 15:21 12/15/22 19:00 Temperature 36.4 C L Temperature Source Temporal Artery Scan Pulse Rate 80 Pulse Rate [Apical] 79 Respiratory Rate 16 21 Respiratory Effort / Characteristics Non-Labored Respiratory Depth Normal Blood Pressure 125/64 Blood Pressure [Right Arm] 121/61 Blood Pressure Mean 84 Blood Pressure Mean [Right Arm] 81 Pulse Oximetry 94 92 92 Oxygen Delivery Method Room Air Room Air Room Air Oxygen Flow Rate 0 Sepsis Recent Fever Within 48 Hours No Sepsis New/Unexplained Change in Mental Status No Sepsis Action Taken by Nursing No Action Required General: Well developed well nourished older male who appears mildly uncomfortable but in no acute distress, breathing comfortably on room air. Normal speech HEENT: Normal cephalic atraumatic. Pupils are equal round and reactive to light. Extraocular movements are intact. Oropharynx is pink with moist mucous membranes. No swelling of the mouth lips or tongue. Neck: Supple with a midline trachea. No meningeal signs or stiffness, no JVD or bruits. No Stridor. Chest: Clear to auscultation bilaterally. No wheezes or rhonchi. No increased work of breathing. Heart: Regular rate and rhythm without murmurs or gallops. Abdomen: Soft nontender, nondistended without rebound guarding or rigidity. Extremities: No cyanosis clubbing or edema. No calf tenderness or assymetry Spine/Back. Non tender to palpation. No CVA tenderness Skin: Good turgor without rashes. Neurologic exam: Cranial nerves two through 12 are intact. Motor and sensation are intact and symmetrical throughout. Course Administered Medications Sodium Chloride (Nss 1000ml) 1,000 mls @ 75 mls/hr IV .[id number] [facility] Stop: 01/14/23 22:52 Last Admin: 12/15/22 23:11 Dose: 75 mls/hr Documented By: CHERELLE Insulin Aspart (Insulin Aspart Per Unit) 0 units SC ACHS KENDRICK Stop: 01/14/23 22:52 Last Admin: 12/15/22 23:28 Dose: 7 units Documented By: CHERELLE Co-signed By: ANTOLIN Discontinued Medications Diphenoxylate HCl/Atropine (Diphenoxylate/Atropine 2.5/0.025mg Tab) 1 tab PO NOW ONE Stop: 12/15/22 21:16 Last Admin: 12/15/22 21:15 Dose: 1 tab Documented By: JH Sodium Chloride (Nss 1000ml) 1,000 mls @ 999 mls/hr IV .[id number] ONE Stop: 12/15/22 18:40 Last Infusion: 12/15/22 18:57 Dose: 0 mls/hr Documented By: Admin: 12/15/22 17:56 Dose: 999 mls/hr Documented By: LINDA Phytonadione 5 mg/ Dextrose 50.5 mls @ 101 mls/hr IV NOW ONE Stop: 12/15/22 21:14 Last Infusion: 12/15/22 21:19 Dose: 0 mls/hr Documented By: Admin: 12/15/22 20:49 Dose: 101 mls/hr Documented By: JH Phytonadione (Phytonadione 5 Mg Tab) 5 mg PO NOW STA Stop: 12/15/22 20:23 Last Admin: 12/15/22 20:45 Dose: Not Given Documented By: JH Phytonadione (Phytonadione 5 Mg Tab) 2.5 mg PO NOW STA Stop: 12/15/22 20:32 Last Admin: 12/15/22 20:41 Dose: 2.5 mg Documented By: JH Medical Decision Making Differential Diagnosis Dehydration, side effect from chemo, cancer related complication, GI bleed, cardiac disease, diabetic complication, or light or metabolic abnormality Medical Records Attestation: I reviewed the patient's medical records. Home Medications Current Medication List: was personally reviewed by me Laboratory Data Attestation: I reviewed the patient's lab results. 12/15/22 18:16 12/15/22 18:13 Lab Results 12/15/22 12/15/22 12/15/22 Range/Units 18:13 18:13 18:13 WBC (4.8-10.8) K/ul RBC (4.70-6.10) M/uL Hgb (14.0-18.0) g/dl Hct (42.0-52.0) % MCV (80.0-100.0) fL MCH (25.0-34.0) pg MCHC (32.0-36.0) g/dL RDW Std Deviation (36.4-46.3) fL RDW Coeff of Bradly (11.5-14.5) % Plt Count (130-400) K/uL MPV (9.4-12.4) fL Immature Gran % (Auto) Neut % (Auto) Lymph % (Auto) [place] % (Auto) Eos % (Auto) Baso % (Auto) Neut # (Auto) Lymph # (Auto) [place] # (Auto) Eos # (Auto) Baso # (Auto) Immature Gran # (Auto) Neutrophils % (Manual) Band Neutrophils % Lymphocytes % (Manual) Prolymphocyte % Reactive Lymphs % (Man) Monocytes % (Manual) Eosinophils % (Manual) Basophils % (Manual) Metamyelocytes % (Man) Myelocytes % (Man) Promyelocytes % (Man) Blast Cells % (Manual) Plasma Cell % (Manual) Other Cells % Nucleated RBC % Neutrophils # (Manual) Band Neutrophils # Total Absolute Neuts Lymphocytes # (Manual) Prolymphocyte # Reactive Lymphs # Total Abs Lymphocytes Monocytes # (Manual) Eosinophils # (Manual) Basophils # (Manual) Metamyelocytes # (Man) Myelocytes # (Manual) Promyelocytes # (Man) Blast Cells # (Man) Plasma Cell # (Manual) Other Cells # Nucleated RBCs # (Man) Hypersegmented Neuts Hyposegmented Neuts Hypogranular Neuts Large Granular Lymphs # Lrg Granular Lymphs Hairy Cells Smudge Cells Toxic Granulation Toxic Vacuolation Dohle Bodies Sydnie Rods Hypogranular Platelets Giant Platelets Platelet Satelliting RBC Morphology Polychromasia Hypochromasia Poikilocytosis Basophilic Stippling Anisocytosis Microcytosis Macrocytosis Spherocytes Pappenheimer Bodies Sickle Cells Target Cells Tear Drop Cells Ovalocytes Stomatocytes [place]eballos-[place]ml[place] Bodies Echinocytes Acanthocytes (Spur) Rouleaux RBC Agglutinates Schistocytes Sezary Cell PT 87.7 H (9.0-12.0) Seconds INR 9.3 H* (0.9-1.1) Sodium 130 L (136-145) mmol/L Potassium 3.6 (3.5-5.1) mmol/L Chloride 94 L (98-107) mmol/L Carbon Dioxide 24 (21-32) mmol/L Anion Gap 12 H (3-11) BUN 33 H (6-23) mg/dl Creatinine 1.15 (0.6-1.4) mg/dl Est Cr Clr Drug Dosing Not Reportable Est GFR ( Amer) 68.3 ml/min Est GFR (Non-Af Amer) 58.9 ml/min BUN/Creatinine Ratio 28.7 H (10-20) Glucose 331 H* (70-99(Fasting)) mg/dl Lactate (0.4-2.0) mmol/L Calcium 7.3 L (8.5-10.1) mg/dl Total Bilirubin 1.6 H (0.2-1.0) mg/dl AST 48 H (13-39) U/L ALT 55 H (7-52) U/L Alkaline Phosphatase 169 H (34-104) U/L Troponin I High Sens 39.8 H (0-20) pg/ml Total Protein 6.6 (6.0-8.3) gm/dl Albumin 3.7 (3.4-5.0) gm/dl Globulin 2.9 (2.5-4.0) gm/dl Albumin/Globulin Ratio 1.3 (0.9-2) TSH 0.617 (0.300-4.500) uIu/ml SARS-CoV-2, RNA, NAAT (NEGATIVE) Blood Parasites ID Blood Type Antibody Screen 12/15/22 12/15/22 12/15/22 Range/Units 18:13 18:13 18:16 WBC 0.18 L* (4.8-10.8) K/ul RBC 3.76 L (4.70-6.10) M/uL Hgb 11.4 L (14.0-18.0) g/dl Hct 32.9 L (42.0-52.0) % MCV 87.5 (80.0-100.0) fL MCH 30.3 (25.0-34.0) pg MCHC 34.7 (32.0-36.0) g/dL RDW Std Deviation 48.3 H (36.4-46.3) fL RDW Coeff of Bradly 15.1 H (11.5-14.5) % Plt Count 68 L (130-400) K/uL MPV 10.8 (9.4-12.4) fL Immature Gran % (Auto) Cancelled Neut % (Auto) Cancelled Lymph % (Auto) Cancelled [place] % (Auto) Cancelled Eos % (Auto) Cancelled Baso % (Auto) Cancelled Neut # (Auto) Cancelled Lymph # (Auto) Cancelled [place] # (Auto) Cancelled Eos # (Auto) Cancelled Baso # (Auto) Cancelled Immature Gran # (Auto) Cancelled Neutrophils % (Manual) Cancelled Band Neutrophils % Cancelled Lymphocytes % (Manual) Cancelled Prolymphocyte % Cancelled Reactive Lymphs % (Man) Cancelled Monocytes % (Manual) Cancelled Eosinophils % (Manual) Cancelled Basophils % (Manual) Cancelled Metamyelocytes % (Man) Cancelled Myelocytes % (Man) Cancelled Promyelocytes % (Man) Cancelled Blast Cells % (Manual) Cancelled Plasma Cell % (Manual) Cancelled Other Cells % Cancelled Nucleated RBC % Cancelled Neutrophils # (Manual) Cancelled Band Neutrophils # Cancelled Total Absolute Neuts Cancelled Lymphocytes # (Manual) Cancelled Prolymphocyte # Cancelled Reactive Lymphs # Cancelled Total Abs Lymphocytes Cancelled Monocytes # (Manual) Cancelled Eosinophils # (Manual) Cancelled Basophils # (Manual) Cancelled Metamyelocytes # (Man) Cancelled Myelocytes # (Manual) Cancelled Promyelocytes # (Man) Cancelled Blast Cells # (Man) Cancelled Plasma Cell # (Manual) Cancelled Other Cells # Cancelled Nucleated RBCs # (Man) Cancelled Hypersegmented Neuts Cancelled Hyposegmented Neuts Cancelled Hypogranular Neuts Cancelled Large Granular Lymphs Cancelled # Lrg Granular Lymphs Cancelled Hairy Cells Cancelled Smudge Cells Cancelled Toxic Granulation Cancelled Toxic Vacuolation Cancelled Dohle Bodies Cancelled Sydnie Rods Cancelled Hypogranular Platelets Cancelled Giant Platelets Cancelled Platelet Satelliting Cancelled RBC Morphology Cancelled Polychromasia Cancelled Hypochromasia Cancelled Poikilocytosis Cancelled Basophilic Stippling Cancelled Anisocytosis Cancelled Microcytosis Cancelled Macrocytosis Cancelled Spherocytes Cancelled Pappenheimer Bodies Cancelled Sickle Cells Cancelled Target Cells Cancelled Tear Drop Cells Cancelled Ovalocytes Cancelled Stomatocytes Cancelled [place]eball[place] Bodies Cancelled Echinocytes Cancelled Acanthocytes (Spur) Cancelled Rouleaux Cancelled RBC Agglutinates Cancelled Schistocytes Cancelled Sezary Cell Cancelled PT (9.0-12.0) Seconds INR (0.9-1.1) Sodium (136-145) mmol/L Potassium (3.5-5.1) mmol/L Chloride (98-107) mmol/L Carbon Dioxide (21-32) mmol/L Anion Gap (3-11) BUN (6-23) mg/dl Creatinine (0.6-1.4) mg/dl Est Cr Clr Drug Dosing Est GFR ( Amer) ml/min Est GFR (Non-Af Amer) ml/min BUN/Creatinine Ratio (10-20) Glucose (70-99(Fasting)) mg/dl Lactate 3.3 H* (0.4-2.0) mmol/L Calcium (8.5-10.1) mg/dl Total Bilirubin (0.2-1.0) mg/dl AST (13-39) U/L ALT (7-52) U/L Alkaline Phosphatase (34-104) U/L Troponin I High Sens (0-20) pg/ml Total Protein (6.0-8.3) gm/dl Albumin (3.4-5.0) gm/dl Globulin (2.5-4.0) gm/dl Albumin/Globulin Ratio (0.9-2) TSH (0.300-4.500) uIu/ml SARS-CoV-2, RNA, NAAT (NEGATIVE) Blood Parasites ID Cancelled Blood Type A Positive Antibody Screen NEGATIVE 12/15/22 12/15/22 12/15/22 Range/Units 18:16 19:30 20:03 WBC 0.18 L* (4.8-10.8) K/ul RBC (4.70-6.10) M/uL Hgb (14.0-18.0) g/dl Hct (42.0-52.0) % MCV (80.0-100.0) fL MCH (25.0-34.0) pg MCHC (32.0-36.0) g/dL RDW Std Deviation (36.4-46.3) fL RDW Coeff of Bradly (11.5-14.5) % Plt Count (130-400) K/uL MPV (9.4-12.4) fL Immature Gran % (Auto) Neut % (Auto) Lymph % (Auto) [place] % (Auto) Eos % (Auto) Baso % (Auto) Neut # (Auto) 0.07 L* Lymph # (Auto) [place] # (Auto) Eos # (Auto) Baso # (Auto) Immature Gran # (Auto) Neutrophils % (Manual) Band Neutrophils % Lymphocytes % (Manual) Prolymphocyte % Reactive Lymphs % (Man) Monocytes % (Manual) Eosinophils % (Manual) Basophils % (Manual) Metamyelocytes % (Man) Myelocytes % (Man) Promyelocytes % (Man) Blast Cells % (Manual) Plasma Cell % (Manual) Other Cells % Nucleated RBC % Neutrophils # (Manual) Band Neutrophils # Total Absolute Neuts Lymphocytes # (Manual) Prolymphocyte # Reactive Lymphs # Total Abs Lymphocytes Monocytes # (Manual) Eosinophils # (Manual) Basophils # (Manual) Metamyelocytes # (Man) Myelocytes # (Manual) Promyelocytes # (Man) Blast Cells # (Man) Plasma Cell # (Manual) Other Cells # Nucleated RBCs # (Man) Hypersegmented Neuts Hyposegmented Neuts Hypogranular Neuts Large Granular Lymphs # Lrg Granular Lymphs Hairy Cells Smudge Cells Toxic Granulation Toxic Vacuolation Dohle Bodies Sydnie Rods Hypogranular Platelets Giant Platelets Platelet Satelliting RBC Morphology Polychromasia Hypochromasia Poikilocytosis Basophilic Stippling Anisocytosis Microcytosis Macrocytosis Spherocytes Pappenheimer Bodies Sickle Cells Target Cells Tear Drop Cells Ovalocytes Stomatocytes [place]all[place] Bodies Echinocytes Acanthocytes (Spur) Rouleaux RBC Agglutinates Schistocytes Sezary Cell PT (9.0-12.0) Seconds INR (0.9-1.1) Sodium (136-145) mmol/L Potassium (3.5-5.1) mmol/L Chloride (98-107) mmol/L Carbon Dioxide (21-32) mmol/L Anion Gap (3-11) BUN (6-23) mg/dl Creatinine (0.6-1.4) mg/dl Est Cr Clr Drug Dosing Est GFR ( Amer) ml/min Est GFR (Non-Af Amer) ml/min BUN/Creatinine Ratio (10-20) Glucose (70-99(Fasting)) mg/dl Lactate 1.9 (0.4-2.0) mmol/L Calcium (8.5-10.1) mg/dl Total Bilirubin (0.2-1.0) mg/dl AST (13-39) U/L ALT (7-52) U/L Alkaline Phosphatase (34-104) U/L Troponin I High Sens (0-20) pg/ml Total Protein (6.0-8.3) gm/dl Albumin (3.4-5.0) gm/dl Globulin (2.5-4.0) gm/dl Albumin/Globulin Ratio (0.9-2) TSH (0.300-4.500) uIu/ml SARS-CoV-2, RNA, NAAT NEGATIVE (NEGATIVE) Blood Parasites ID Blood Type Antibody Screen Imaging Data Attestation: I personally reviewed and interpreted this imaging study as follows: My Impression: Chest x-rayno acute infiltrate, failure, pneumothorax seen. There is a telectasis in the right base Radiologist's Impression: Chest X-Ray 12/15/22 17:38 XR chest 1V portable HISTORY: 81 years-old Male sob acute shortness of breath COMPARISON: 11/08/2022, CTA chest 10/27/2022 TECHNIQUE: AP view of the chest FINDINGS: Cardiac silhouette is enlarged. Mild bilateral hilar enlargement. Prior median sternotomy with CABG. Aortic valvular endograft. Left subclavian pacer. No pneum othorax, large pleural effusion or overt pulmonary edema. Ill-defined pulmonary nodules again noted. Linear subsegmental bibasilar densities. Degenerative changes of the shoulders and spine. Pulmonary osseous metastasis redemonstrated. IMPRESSION: 1. Cardiomegaly without acute process. 2. Mild bibasilar densities suggest atelectasis. 3. Metastatic disease of the chest including gregory, pulmonary and osseous disease is better evaluated on the chest CT from 10/27/2022. ACT 112: Negative or not required by law. The above report was generated using voice recognition software. It may contain grammatical, syntax or spelling errors. Electronically signed by: Layo Hooks M.D. 12/15/2022 6:48 PM ECG Data Attestation: I personally reviewed and interpreted this ECG as follows: Indication: + weakness Rate (beats per minute): 82 Rhythm: + normal sinus ECG Intervals/blocks: + Right Bundle branch block and + Normal CT ECG [place]: + Normal ECG ST segments: + Nonspecific ST abnormalities ECG Findings: no PACs or no PVCs Comparison ECG Date: from (11/10/22) Change: the following changes noted (Normal sinus rhythm replaced the patient) MDM Narrative This patient comes in as described above. He has been feeling ill after starting chemo again. He was sent over from his doctor's office, I reviewed the labs that they sent his sodium was low at 132 glucose was high at 321 CO2 was 21. BUN was elevated at 30 his hemoglobin was 12 which was not seemingly changed from the previous lab draw at 12 5 he was found to be neutropenic. He has no fever here. Blood work was ordered IV access was ordered. I did order IV fluid bolus. Chest x-ray EKG and multiple blood testing .he was also type and screened in the case that he would need transfusions. He was further evaluated and reassessed frequently. He was found to be pancytopenic most likely from him restarting chemo thus far he does not have any fever or suggestion of infection his BUN is elevated consistent with dehydration his glucose is also elevated. Troponin is mildly elevated but he has no chest pain or acute ischemic changes on EKG COVID was negative. His INR was 9.3. He has had no evidence of bleeding while he is here to suggest that this needs emergent reversal but will need to be held in the hospital. Blood cultures were obtained as well in the event that he would spike a fever or need antibiotics. I have discussed the case in consultation with Dr. Kelly and he will see the patient in ER for admission/observation. Continuous cardiac monitoring: Orders placed in EMR for continuous property assessment monitor. Upon my evaluation was noted to be in normal sinus rhythm rate 85. Impression & Plan Weakness, Prostate cancer metastatic to multiple sites, Chemotherapy adverse reaction, Diarrhea, Supratherapeutic INR, Hyperglycemia Discharge Plan Visit Data Chief Complaint: Weakness Stated Complaint: Weakness ED Provider: Gil Anthony Discharge Problem: Weakness, Prostate cancer metastatic to multiple sites, Chemotherapy adverse reaction, Diarrhea, Supratherapeutic INR, Hyperglycemia Patient Disposition: Admitted As Inpatient Discharge Instructions Interventions: ED Discharge Assessment Last Done: 12/15/22 22:26 Chemotherapy adverse reaction Qualifiers: Encounter type: initial encounter Qualified Code(s): T45.1X5A - Adverse effect of antineoplastic and immunosuppressive drugs, initial encounter Diarrhea Qualifiers: Diarrhea type: unspecified type Qualified Code(s): R19.7 - Diarrhea, unspecified
--- NOTE | 2022-12-15 18:50 | XRay Report ---
XR chest 1V portable HISTORY: 81 years-old Male sob acute shortness of breath COMPARISON: 11/08/2022, CTA chest 10/27/2022 TECHNIQUE: AP view of the chest FINDINGS: Cardiac silhouette is enlarged. Mild bilateral hilar enlargement. Prior median sternotomy with CABG. Aortic valvular endograft. Left subclavian pacer. No pneumothorax, large pleural effusion or overt pu lmonary edema. Ill-defined pulmonary nodules again noted. Linear subsegmental bibasilar densities. De generative changes of the shoulders and spine. Pulmonary osseous metastasis redemonstrated. IMPRESSION: 1. Cardiomegaly without acute process. 2. Mild bibasilar densities suggest atelectasis. 3. Metastatic disease of the chest including gregory, pulmonary and osseous disease is better evaluated on the chest CT from 10/27/2022. ACT 112: Negative or not required by law. The above report was generated using voice recognition software. It may contain grammatical, syntax o r spelling errors. Electronically signed by: Layo Hooks M.D. 12/15/2022 6:48 PM
[2022-12-15 18:55] LABS: Alanine Aminotransferase 55 U/L (7-52); Albumin Globulin Ratio 1.3 (0.9-2); Albumin Level 3.7 gm/dl (3.4-5.0); Alkaline Phosphatase 169 U/L (34-104); Anion Gap 12 (3-11); Aspartate Aminotransferase 48 U/L (13-39); BUN Creatinine Ratio 28.7 (10-20); Bilirubin,Total 1.6 mg/dl (0.2-1.0); Blood Urea Nitrogen 33 mg/dl (6-23); Calcium 7.3 mg/dl (8.5-10.1); Carbon Dioxide 24 mmol/L (21-32); Chloride 94 mmol/L (98-107); Est GFR (African American) 68.3 ml/min; Est GFR (Non-African American) 58.9 ml/min; Globulin 2.9 gm/dl (2.5-4.0); Glucose 331 mg/dl (70-99(Fasting)); Potassium 3.6 mmol/L (3.5-5.1); Sodium 130 mmol/L (136-145); Total Protein 6.6 gm/dl (6.0-8.3)
[2022-12-15 19:05] LABS: Hematocrit (blood only) 32.9 % (42.0-52.0); Hemoglobin 11.4 g/dl (14.0-18.0); Mean Corpuscular Hemoglobin 30.3 pg (25.0-34.0); Mean Corpuscular Hgb Conc 34.7 g/dL (32.0-36.0); Mean Corpuscular Volume 87.5 fL (80.0-100.0); Mean Platelet Volume 10.8 fL (9.4-12.4); Platelet Count 68 K/uL (130-400); RDW Coefficient of Variation 15.1 % (11.5-14.5); RDW Standard Deviation 48.3 fL (36.4-46.3); Red Blood Count 3.76 M/uL (4.70-6.10); White Blood Count 0.18 K/ul (4.8-10.8)
[2022-12-15 19:12] LABS: Prothrombin Time 87.7 Seconds (9.0-12.0)
[2022-12-15 19:30] LABS: INR 9.3 (0.9-1.1)
[2022-12-15] MEDS ORDERED: PHYTONADIONE 5 MG TAB PO STA ×2 (20:22→20:31)
[2022-12-15 20:28] LABS: Troponin I High Sensitivity 39.8 pg/ml (0-20)
[2022-12-15] MEDS ORDERED: PHYTONADIONE 5 MG in DEXTROSE 5% 50 ML IV ONE (20:45)
[2022-12-15] MEDS ORDERED: DIPHENOXYLATE/ATROPINE 2.5/0.025MG TAB PO ONE (21:15)
[2022-12-15 21:24] LABS: Appearance Urine Cloudy (Clear); Bacteria Urine Automated Negative (Negative); Bilirubin Urine Negative (Negative); Blood Urine Trace (Negative); Color Urine Yellow; Epithelial Cell Urine Auto >30 /lpf (0-5); Glucose Urine UA 3+ (Negative); Ketones Urine 1+ (Negative); Leukocyte Esterase Urine Negative (Negative); Nitrite Urine Negative (Negative); Protein Urine 2+ (Negative); Specific Gravity Urine 1.023 (1.000-1.030); Urobilinogen Urine Negative (Negative)
[2022-12-15 21:57] LABS: Neutrophils # (auto) 0.07 K/uL (1.40-6.50); White Blood Count 0.18 K/ul (4.8-10.8)
[2022-12-15] MEDS ORDERED: HYDROCORTISONE 2.5% CR 30 GM TUBE EXT PRN (22:53)
[2022-12-15] MEDS ORDERED: PROMETHAZINE HCL 6.25 MG in SODIUM CHLORIDE 0.9% 50 ML IV PRN (22:53)
[2022-12-15] MEDS ORDERED: GLUCAGON FOR INJ 1 MG VIAL SQ PRN (22:53)
[2022-12-15] MEDS ORDERED: GLUCOSE 40% GEL 15 GM TUBE PO PRN (22:53)
[2022-12-15] MEDS ORDERED: CARBOHYDRATES FOR HYPOGLYCEMIA PO PRN (22:53)
[2022-12-15] MEDS ORDERED: NITROGLYCERIN SL 0.4 MG/TAB TAB SL PRN ×2 (22:53)
[2022-12-15] MEDS ORDERED: NON-FORMULARY MEDICATION (Glucos Sul 2kcl-Msm-Chond-C-Mn [Glucosamine Chondroitin] 550-30- PO SCH (22:53)
[2022-12-15] MEDS ORDERED: DEXTROSE 50% 50 ML SYRINGE IV PRN (22:53)
[2022-12-15] MEDS ORDERED: GLUCOSE 10 TAB/TUBE PO PRN (22:53)
[2022-12-15] MEDS ORDERED: ACETAMINOPHEN 325 MG TAB PO PRN (22:53)
[2022-12-15] MEDS: SODIUM CHLORIDE 0.9% 1000ML 1,000 ML IV SCH (23:11)
[2022-12-15] MEDS: INSULIN ASPART PER UNIT SC SCH (23:28)
[2022-12-15] MEDS ORDERED: CEFEPIME 2,000 MG in SYRINGE 0 ML IV ONE (23:30)
--- NOTE | 2022-12-15 23:40 | History and Physical Report ---
DATE OF ADMISSION: 12/15/2022. CHIEF COMPLAINT: Weakness. HISTORY OF PRESENT ILLNESS: This is an 81-year-old male with past medical history significant for type 2 diabetes, hyperlipidemia, metastatic prostate cancer, obstructive sleep apnea, paroxysmal atrial fibrillation, tachybrady syndrome, status post pacemaker, hypertension, history of CAD s/p cabg, s/p stent chronic systolic CHF, status post TAVR in October 2022, GERD, IT band syndrome, hereditary and idiopathic peripheral neuropathy, , history of pulmonary embolism, history of DVT, diarrhea, presents with weakness. The patient was diagnosed with prostate cancer in October 2016. Because of his age and comorbid conditions, he thought was not a surgical candidate and treated with radiation treatment. He was also treated with androgen deprivation including Casodex and Firmagon. Casodex was discontinued because of side effects. He was on Firmagon and received the last dose in March 2020. He has rising of PSA while he is on Firmagon. He was started on Lupron in April 2020, but also his disease progressed with progression of lung nodule and lymphadenopathy and PSA increased to 341 in February 2021 and FNA from lung lesion was positive for metastatic prostate cancer. The patient was started on dose of reduced Taxotere with excellent response when decrease in PSA level, he received total of 6 cycles of Taxotere, last dose was in May 2021 and again the PSA was rising, so he was placed on Lupron, prednisone and Zytiga, and recently looks like his repeat PET scan was noted to be extensive disease progression and also rising PSA level and recently had discussion with the Hem/Onc and discussed about palliative care versus further treatment including Cabazitaxel and was told that he has incurable disease, just palliative treatment .Currently is on single dose of Cabazitaxel, received first dose on last Sunday. said that since then he is feeling very weak, poor appetite. His strength has decreased. He walks with a walker, and also he had several episodes of diarrhea. He has like 4-5 episodes of diarrhea today, one episode in the ER. says that she has noticed some blood in the stool in ER.. Because of weakness and ongoing diarrhea and poor appetite, not feeling well, his outpatient labs were done and was advised to come to the ER. In the ER, he is hemodynamically stable, afebrile. He is awake. WBC 0.18, hemoglobin 11.4, platelets are 68. INR is 9.3. Sodium 130, glucose was in 300's Lactate 1.9, total bilirubin 1.6. Troponin I high sensitivity 39.8, alkaline phosphatase 169. Currently, resting comfortably. Denies any headache. No neck pain, no chest pain, no back pain. Has chronic pain in the legs from neuropathy. No abdominal pain. He is not micturating much and sys there is some pressure while he is micturating. Denies any chest pain. He always gets short of breath. He feels short of breath, but he is saturating okay on room air. No cough, no runny nose, no sore throat, no earaches. His also noticed some petechial rash on his trunk region. ALLERGIES: No known drug allergies. PAST MEDICAL HISTORY: As mentioned above. PAST SURGICAL HISTORY: CABG, cardiac stent placement, pacemaker, left total knee arthroplasty, colonoscopies, cystoscopy, EGDs, laparoscopic cholecystectomy, cataract surgeries, status post TAVR, suture removal of ectropion. MEDICATIONS: The patient is on Tylenol 650-975 mg p.o. daily p.r.n., amiodarone 200 mg p.o. daily, vitamin C 1000 mg p.o. daily, aspirin 81 mg p.o. daily, Lipitor 40 mg p.o. p.m., vitamin D 1000units p.o. a.m., diphenoxylate/atropine 1 tablet p.o. q.i.d. p.r.n. for diarrhea, famotidine 20 mg p.o. b.i.d., Flonase 2 sprays intranasal b.i.d., glipizide 2.5 mg p.o. daily, glucosamine chondroitin 1 capsule p.o. b.i.d., hydrocortisone p.r.n., Claritin 10 mg p.o. a.m., metoprolol succinate 25 mg p.o. b.i.d., Nitrostat 0.4 mg sublingual p.r.n., omeprazole 20 mg p.o. b.i.d., nystatin 1 application topical t.i.d. in the groins, Zofran 8 mg p.o. q. 8 hours p.r.n. for nausea, potassium chloride 20 mEq p.o. a.m., prednisone 5 mg p.o. b.i.d., PreserVision 2 tablets p.o. daily, prochlorperazine 10 mg p.o. q. 6 hours p.r.n., tacrolimus p.r.n., Flomax 0.4 mg p.o. a.m., torsemide 20 mg p.o. a.m., warfarin 5 mg p.o. daily. FAMILY HISTORY: Significant for mother has diabetes; sister has diabetes; father has diabetes; mother has heart disorder; brother has stroke. SOCIAL HISTORY: , lives with his . Quit smoking in 1959, smoked 2 packs a day for 5 years. No alcohol, no drug use. REVIEW OF SYSTEMS: As per HPI. Rest of review of systems is negative. PHYSICAL EXAMINATION: GENERAL: The patient is of moderate build, not in acute distress. VITAL SIGNS: Temperature 36.4, pulse 83, respiratory rate 18, blood pressure 154/85, oxygen 94% on room air. HEENT: Pupils equal, round and reactive to light. Oral mucosa moist. NECK: No JVD, no neck masses. CARDIOVASCULAR: S1 and S2 heard. Regular rate and rhythm. No murmur, no gallop. RESPIRATORY SYSTEM: Normal AP diameter. No accessory muscle use. No wheezing, crackles. ABDOMEN: Soft, bowel sounds present, nontender, no distention. CENTRAL NERVOUS SYSTEM: Cranial nerves II through XII grossly intact, nonfocal. EXTREMITIES: No edema, no erythema seen. SKIN: Some petechial rash seen on the trunk, mild. LABORATORY DATA: WBC 0.18, hemoglobin 11.4, hematocrit 32.9, platelets 68. PT 87.7, INR 9.3. Sodium 130, potassium 3.6, chloride 94, bicarbonate 24. BUN 33, creatinine 1.1, serum glucose 339. Lactate 1.9, calcium 7.3, total bilirubin 1.6, AST 48, ALT55, alkaline phosphatase 169. Troponin I high sensitivity 10.8. SARS-CoV-2 rapid test negative. IMAGING DATA: Chest x-ray, cardiomegaly without acute process. Mild bibasilar densities/atelectasis metastatic disease in the chest including nodule, pulmonary artery disease. EKG: Normal sinus rhythm at a rate of 82, right bundle-branch block, QTc of 558. ASSESSMENT AND PLAN: This is an 81-year-old male who presents with weakness. 1. Weakness: He has metastatic prostate cancer. Currently on palliative chemo. Started palliative chemo last Sunday. Since then, he has diarrhea and weakness. We will monitor in the hospital. Supportive care, PT, OT when stable. 2. Pancytopenia: Neutropenic precautions. Afebrile. White count of 0.18, platelets are 68, hemoglobin 11.4. We will follow the labs. If any concern, we will consult Hem/Onc.Empiric iv cefepime with 48hrs stop for now. Mrsa screen seems positive. Will monitor. 3. Elevated INR: Holding Coumadin. Giving one dose of IV vitamin K. Monitor the labs. Monitor the PT/INR. 4. Questionable GI bleed: noticed some blood in the stools. We will check his stool for Hemoccult. If comes positive, we will consult GI. Holding Coumadin. If Hemoccult comes positive, we will also hold aspirin. Blood consent obtained. We will follow labs. 5. Hyponatremia: Sodium of 130. Getting gentle fluids. Holding torsemide. We will follow the labs in the a.m. 6. Diabetes: Elevated sugars. Holding glipizide. Giving one dose iv insulin . Place on Lantus insulin sliding scale. Follow the blood sugars. 7. Elevated troponin: Most likely demand ischemia. We will follow serial enzymes. 8. Elevated LFTs: Most likely from the ongoing chemo and cancer. We will follow the repeat labs. 9. Metastatic prostate cancer: Currently on palliative chemo. Further management as per Hem/Onc. 10. History of atrial fibrillation: On amiodarone and metoprolol succinate. Holding Coumadin. Follow the PT/INR. 11. History of coronary artery disease, status post coronary artery bypass graft, status post stent: On metoprolol, aspirin and statin. We will monitor. 12. Gastroesophageal reflux disease: On omeprazole. 13. Benign prostatic hyperplasia?: We will monitor for urinary retention, Flomax. 14. Chronic systolic congestive heart failure: On echo in October 2022, his EF was 35-40%. Currently, holding the torsemide and potassium supplements. We will continue with gentle fluids, monitor for any volume overload. 15. Sick sinus syndrome: Status post pacemaker. 16. History of pulmonary embolism and deep venous thrombosis per records: Restart Coumadin as soon as possible. 17. History of tobacco abuse in the past. 18. Deep venous thrombosis prophylaxis: INR supratherapeutic. We will follow PT/INR and also follow the platelets. 19. s/p TAVR 10/2022. 20 History of obstructive sleep apnea and history of restrictive lung disease, pulmonary hypertension: Currently on CPAP at bedtime. We will monitor the respiratory status. DISPOSITION: Closely monitor in the med tele. PT/OT prior to discharge. Social service to help with discharge planning. Level 1 full code for now as per discussion with the . Job ID: [id number] MTDD
[2022-12-15] MEDS: FLUTICASONE PROPIONATE NA SPR 16 GM BTL NAE SCH (23:41)
[2022-12-15] MEDS: NYSTATIN POWDER 15GM BTL EXT SCH (23:41)
[2022-12-15] MEDS: PANTOprazole 40 MG TAB PO SCH (23:42)
[2022-12-15] MEDS: ATORVASTATIN 40 MG TAB PO SCH (23:42)
[2022-12-15] MEDS: FAMOTIDINE 20 MG TAB PO SCH (23:42)
[2022-12-15] MEDS: METOPROLOL SUCC 25MG EXT REL TAB PO SCH (23:42)
[2022-12-15] MEDS: predniSONE 5 MG TAB PO SCH (23:43)
[2022-12-15] MEDS ORDERED: Patient's HEIGHT &/or WEIGHT Needed SCH (23:45)
[2022-12-16] MEDS: [UNRECOGNIZED DRUG - REMARK] SCH ×3 (00:10→18:32)
[2022-12-16] MEDS ORDERED: INSULIN HUMAN REGULAR PER UNIT 5 UNITS in SYRINGE 4.95 ML IV ONE (02:00)
[2022-12-16 07:03] LABS: Hematocrit (blood only) 25.9 % (42.0-52.0); Hemoglobin 9.3 g/dl (14.0-18.0); Mean Corpuscular Hemoglobin 31.1 pg (25.0-34.0); Mean Corpuscular Hgb Conc 35.9 g/dL (32.0-36.0); Mean Corpuscular Volume 86.6 fL (80.0-100.0); Mean Platelet Volume 10.7 fL (9.4-12.4); Platelet Count 57 K/uL (130-400); RDW Coefficient of Variation 15.2 % (11.5-14.5); RDW Standard Deviation 48.6 fL (36.4-46.3); Red Blood Count 2.99 M/uL (4.70-6.10); White Blood Count 0.17 K/ul (4.8-10.8)
[2022-12-16 07:04] LABS: Platelet Estimate Decreased (Normal)
--- NOTE | 2022-12-16 07:41 | Electrocardiogram Report ---
Test Reason : Blood Pressure : / mmHG Vent. Rate : 082 BPM Atrial Rate : 082 BPM P-R Int : 194 ms QRS Dur : 168 ms QT Int : 478 ms P-R-T Axes : 025 269 066 degrees QTc Int : 558 ms Poor data quality, interpretation may be adversely affected Normal sinus rhythm Right bundle branch block Possible Old Septal infarct (cited on or before 15-DEC-2022) Abnormal ECG When compared with ECG of 10-NOV-2022 09:39, Sinus rhythm has replaced Electronic atrial pacemaker Confirmed by Daryn Ye ([id number]) on 12/16/2022 7:41:18 AM Referred By: Aleja Contreras Confirmed By:Daryn Ye
--- NOTE | 2022-12-16 07:41 | Electrocardiogram Report ---
Test Reason : Blood Pressure : / mmHG Vent. Rate : 078 BPM Atrial Rate : 078 BPM P-R Int : 204 ms QRS Dur : 174 ms QT Int : 474 ms P-R-T Axes : 074 -82 077 degrees QTc Int : 540 ms Normal sinus rhythm Left axis deviation Non-specific intra-ventricular conduction block Abnormal ECG When compared with ECG of 15-DEC-2022 16:46, (unconfirmed) Non-specific intra-ventricular conduction block has replaced Right bundle branch block Criteria for Septal infarct are no longer Present Confirmed by Daryn Ye ([id number]) on 12/16/2022 7:41:31 AM Referred By: Aleja Contreras Confirmed By:Daryn Ye
[2022-12-16 07:47] LABS: INR 1.6 (0.9-1.1); Prothrombin Time 16.8 Seconds (9.0-12.0)
[2022-12-16] MEDS: LANTUS PER UNIT CHARGE SQ SCH (08:51)
[2022-12-16] MEDS: INSULIN ASPART PER UNIT SC SCH ×4 (08:51→23:02)
[2022-12-16] MEDS: CEROVITE ADV FORMULA TAB PO SCH (09:32)
[2022-12-16] MEDS: TAMSULOSIN HCL 0.4 MG CAP PO SCH (09:32)
[2022-12-16] MEDS: ASCORBIC ACID 500 MG TAB PO SCH (09:32)
[2022-12-16] MEDS: CHOLECALCIFEROL 1,000 UNITS 25 MCG TAB PO SCH (09:32)
[2022-12-16] MEDS: AMIODARONE 200 MG TAB PO SCH (09:32)
[2022-12-16] MEDS: predniSONE 5 MG TAB PO SCH ×2 (09:32→20:28)
[2022-12-16] MEDS: LORATADINE 10 MG TAB PO SCH (09:32)
[2022-12-16] MEDS: ASPIRIN 81 MG ECTAB PO SCH (09:32)
[2022-12-16] MEDS: FAMOTIDINE 20 MG TAB PO SCH ×2 (09:33→20:28)
[2022-12-16] MEDS: FLUTICASONE PROPIONATE NA SPR 16 GM BTL NAE SCH ×2 (09:33→20:29)
[2022-12-16] MEDS: PANTOprazole 40 MG TAB PO SCH (09:33)
[2022-12-16 09:34] LABS: BUN Creatinine Ratio 29.8 (10-20); Calcium 6.7 mg/dl (8.5-10.1); Creatinine Clr Calc Pharmacy 74.7 ml/min; Est GFR (African American) 94.5 ml/min; Est GFR (Non-African American) 81.5 ml/min; Magnesium 1.9 mg/dl (1.7-2.4); Potassium 3.2 mmol/L (3.5-5.1)
[2022-12-16] MEDS: METOPROLOL SUCC 25MG EXT REL TAB PO SCH ×2 (09:34→20:28)
[2022-12-16] MEDS: NYSTATIN POWDER 15GM BTL EXT SCH ×3 (09:34→20:29)
[2022-12-16 10:08] LABS: Estimated Average Glucose 174 mg/dl; Hemoglobin A1C 7.7 % (4.5-5.6)
[2022-12-16] MEDS ORDERED: CEFEPIME 2,000 MG in SYRINGE 0 ML IV SCH (12:00)
[2022-12-16] MEDS: SODIUM CHLORIDE 0.9% 1000ML 1,000 ML IV SCH (13:21)
[2022-12-16 13:46] LABS: A calco-baum cmplx NotReported Not Detected (NotDetected); Bact fragilis Not Reported Not Detected (NotDetected); C auris Not Reported Not Detected (NotDetected); CTX-M Resistant Gene Not Detected (NotDetected); Calbicans Not Reported Not Detected (NotDetected); Candida glabrata Not Reported Not Detected (NotDetected); Candida krusei Not Reported Not Detected (NotDetected); Cneoformans/gatti Not Reported Not Detected (NotDetected); Cparapsilosis Not Reported Not Detected (NotDetected); Ctropicalis Not Reported Not Detected (NotDetected); E cloacae compx Not Reported Not Detected (NotDetected); Efaecalis Not Reported Not Detected (NotDetected); Efaecium Not Reported Not Detected (NotDetected); Enterobacterales DETECTED (NotDetected); Enterobacterales Not Reported DETECTED (NotDetected); Escherichia coli Not Reported DETECTED (NotDetected); H influenzae Not Reported Not Detected (NotDetected); IMP Resistant Gene Not Detected (NotDetected); K aerogenes Not Reported Not Detected (NotDetected); KPC Resistant Gene Not Detected (NotDetected); Koxytoca Not Reported Not Detected (NotDetected); Kpneumoniae grp Not Reported Not Detected (NotDetected); Lmonocyt Not Reported DETECTED (NotDetected); N meningitidis Not Reported Not Detected (NotDetected); NDM Resistant Gene Not Detected (NotDetected); OXA 48 Like Resistant Gene Not Detected (NotDetected); P aeruginosa Not Reported Not Detected (NotDetected); Proteus spp Not Reported Not Detected (NotDetected); Salmonella spp Not Reported Not Detected (NotDetected); Smarcescens Not Reported Not Detected (NotDetected); Staph lugdunensis Not Reported Not Detected (NotDetected); Staph spp. Not Reported Not Detected (NotDetected); Staphaureus Not Reported Not Detected (NotDetected); Staphepi Not Reported Not Detected (NotDetected); Stenmaltophilia Not Reported Not Detected (NotDetected); Strep agal(GrpB) Not Reported Not Detected (NotDetected); Strep pneum Not Reported Not Detected (NotDetected); Strep pyog (GrpA) Not Reported Not Detected (NotDetected); Strep spp Not Reported Not Detected (NotDetected); VIM Resistant Gene Not Detected (NotDetected); mcr-1 Colistin Resistant Gene Not Detected (NotDetected)
[2022-12-16 13:46] LABS: A calco-baum cmplx NotReported Not Detected (NotDetected); Bact fragilis Not Reported Not Detected (NotDetected); C auris Not Reported Not Detected (NotDetected); Calbicans Not Reported Not Detected (NotDetected); Candida glabrata Not Reported Not Detected (NotDetected); Candida krusei Not Reported Not Detected (NotDetected); Cneoformans/gatti Not Reported Not Detected (NotDetected); Cparapsilosis Not Reported Not Detected (NotDetected); Ctropicalis Not Reported Not Detected (NotDetected); E cloacae compx Not Reported Not Detected (NotDetected); Efaecalis Not Reported Not Detected (NotDetected); Efaecium Not Reported Not Detected (NotDetected); Enterobacterales Not Reported Not Detected (NotDetected); Escherichia coli Not Reported Not Detected (NotDetected); H influenzae Not Reported Not Detected (NotDetected); K aerogenes Not Reported Not Detected (NotDetected); Koxytoca Not Reported Not Detected (NotDetected); Kpneumoniae grp Not Reported Not Detected (NotDetected); Lmonocyt Not Reported DETECTED (NotDetected); N meningitidis Not Reported Not Detected (NotDetected); P aeruginosa Not Reported Not Detected (NotDetected); Proteus spp Not Reported Not Detected (NotDetected); Salmonella spp Not Reported Not Detected (NotDetected); Smarcescens Not Reported Not Detected (NotDetected); Staph lugdunensis Not Reported Not Detected (NotDetected); Staph spp. Not Reported Not Detected (NotDetected); Staphaureus Not Reported Not Detected (NotDetected); Staphepi Not Reported Not Detected (NotDetected); Stenmaltophilia Not Reported Not Detected (NotDetected); Strep agal(GrpB) Not Reported Not Detected (NotDetected); Strep pneum Not Reported Not Detected (NotDetected); Strep pyog (GrpA) Not Reported Not Detected (NotDetected); Strep spp Not Reported Not Detected (NotDetected)
[2022-12-16 13:47] LABS: Listeria monocytogenes DETECTED (NotDetected)
[2022-12-16 13:48] LABS: Listeria monocytogenes DETECTED (NotDetected)
--- NOTE | 2022-12-16 13:58 | Oncology Consultation ---
Date of Consultation December 16, 2022 Assessment & Plan (1) Prostate cancer metastatic to multiple sites: (2) Diarrhea: (3) Pancytopenia: Plan 81-year-old gentleman with multiple comorbidities who was admitted for severe fatigue/declining performance status and diarrhea. Labs revealed pancytopenia. He received cycle 1 of cabazitaxel for prostate cancer on 12/08/2022 under the care of Dr. Contreras at [facility] [place] -Pancytopenia likely due to recent chemotherapy. Given significantly low ANC, r ecommend filgrastim 480 mcg daily x3 days -Diarrhea also likely due to chemotherapy. Recommend Lomotil for diarrhea since C. difficile is negative. IV hydration -Transfuse with PRBC for hemoglobin less than 8 and transfuse with platelet for platelet count less than 10,000. -Patient would probably benefit from palliative care evaluation at some point given declining performance status and disease progression on multiple lines of treatment. Will defer to his primary oncologist regarding this. Thank you for this consult. Oncology will sign off at this time. Please feel free to call if you have any further questions History of Present Illness Reason for Consultation: Bicytopenia Attending Physician: Misty Tse MD History of Present Illness Pleasant 81-year-old gentleman with multiple comorbidities including history of metastatic prostate cancer, coronary artery disease s/p CABG, PE/DVT, recent history of TAVR in October,. Regarding his prostate cancer, he follows with Dr. Contreras and has received multiple lines of treatment including Casodex, Zytiga, docetaxel and most recently received cycle 1 of cabazitaxel about 1 week ago on 12/08/2022. He presented to the ER at [facility] with significant fatigue, poor appetite, severe diarrhea and general decrease in his performance status since he received cabazitaxel.Labs obtained while in the ER revealed severe leukopenia with white cell count of 0.18 and ANC of 7, hemoglobin of 11.3 and platelet count of 68,000 He complained of fatigue, shortness of breath, poor appetite, weight loss, diarrhea. Denied fever, chills or any other issues Allergies Allergy/AdvReac Type Severity Reaction Status Date / Time No Known Allergies Allergy Verified 12/15/22 20:15 Home Medications Medication Instructions Recorded Confirmed Type glucosamine sulf dipot 1 cap PO AMHS 02/21/19 12/15/22 History chlr,msm,chond 550 mg-C 30 mg-erum 1 mg capsule (Glucosamine Chondroitin) nitroglycerin 0.4 mg sublingual 0.4 mg sublingual DIRECTED PRN 02/21/19 12/15/22 History tablet (Nitrostat) Chest Pain omeprazole 20 mg capsule,delayed 20 mg PO BID 02/21/19 12/15/22 History release potassium chloride 10 mEq 20 meq PO QAM 02/21/19 12/15/22 History tablet,extended release(part/cryst) (Klor-Con M) cholecalciferol (vitamin D3) 25 25 mcg PO QAM 01/08/21 12/16/22 History mcg (1,000 unit) tablet vit C 250 mg-vit E 90 mg-zinc 40 2 tab PO DAILY 10/16/21 12/15/22 History mg-copper 1 [id number] capsule (PreserVision AREDS-2) famotidine 20 mg tablet (Pepcid) 20 mg PO BID 03/17/22 12/15/22 History prednisone 5 mg tablet 5 mg PO AMHS 03/17/22 12/15/22 History acetaminophen 325 mg tablet 650 - 975 mg PO DAILY PRN 03/28/22 12/15/22 History (Tylenol) PAIN/FEVER ascorbic acid (vitamin C) 500 mg 1,000 mg PO DAILY 03/28/22 12/15/22 History tablet (Vitamin C) hydrocortisone 2.5 % topical cream 1 applic topical DAILY PRN 03/28/22 12/15/22 History UNDERARMS FOR FLARE UPS amiodarone 200 mg tablet 200 mg PO QAM 07/04/22 12/15/22 History loratadine 10 mg tablet (Claritin) 10 mg PO QAM 07/04/22 12/15/22 History aspirin 81 mg chewable tablet 81 mg PO QAM 10/15/22 12/15/22 History glipizide 5 mg tablet 2.5 mg PO DAILY 10/15/22 12/15/22 History tacrolimus 0.1 % topical ointment 1 applic topical BID PRN FLARES OF 10/15/22 12/15/22 History PSORIASIS tamsulosin 0.4 mg capsule (Flomax) 0.4 mg PO QAM 10/15/22 12/15/22 History atorvastatin 40 mg tablet (Lipitor) 40 mg PO PM 10/27/22 12/15/22 History fluticasone propionate 50 2 spray intranasal BID 11/05/22 12/15/22 History mcg/actuation nasal spray,suspension torsemide 20 mg tablet 20 mg PO QAM 11/05/22 12/15/22 History warfarin 5 mg tablet 5 mg PO DAILY@1600 #30 tabs 11/14/22 12/15/22 Rx diphenoxylate-atropine 2.5 1 tab PO QID PRN Diarrhea 12/15/22 12/15/22 History mg-0.025 mg tablet metoprolol succinate 25 mg 25 mg PO AMHS 12/15/22 12/15/22 History tablet,extended release 24 hr nystatin 100,000 unit/gram topical 1 applic topical TID 12/15/22 12/15/22 History powder ondansetron HCl 8 mg tablet 8 mg PO Q8H PRN Nausea 12/15/22 12/15/22 History prochlorperazine maleate 10 mg 10 mg PO Q6 PRN Nausea 12/15/22 12/15/22 History tablet Patient History Medical History Acute respiratory failure with hypoxia Aortic stenosis Asthma Atrial fibrillation with RVR CAD (coronary artery disease) Status post PCI with a BMS to the mid LAD on 05/16/2016. 2.May 26, 2016 diagnostic cardiac catheterization at [facility], Dr. 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 Also, far beyond the stent, there was visible healed dissection flap, Type B, non- obstructive. 3.Status post CABG x 1 with a ABRAMS to LAD for persistent angina, May 2016. 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 Surgical History H/O esophagogastroduodenoscopy Hx of total knee arthroplasty S/P CABG x 1 S/P cholecystectomy S/P hip replacement S/P knee replacement Family History Other Diabetes Heart disease Social History Smoking Status: Never smoker Tobacco Type: Cigarettes Cigarettes Per Day: 40; Second Hand Exposure: No; Hx Alcohol Use: No Hx Substance Use: No Preferred Language: Mauritian Communication Ability: Effective Visual Impairment: No Limitations Hearing Ability: Normal Manager Wound Required: No Beliefs That Will Affect Care: None marital status: Current Living Situation: Spouse Current Living Situation Comment: Home with Other Information That Helps Us Care for You: No Feels Safe at Home: Yes Safety Concerns: Feels Safe At This Time Assistive Devices: CPAP and Walker Results & Data ([facility]) Vital Signs (Past 12 Hours) Vital Signs Temp Pulse Pulse Resp BP Pulse Ox O2 Del Method 12/16/22 11:18 36.6 C 70 17 101/66 95 Nasal Cannula 12/16/22 08:00 Nasal Cannula 12/16/22 07:40 36.6 C 74 16 98/60 L 96 Nasal Cannula 12/16/22 02:38 37.2 C 82 18 102/66 95 Nasal Cannula O2 Flow Rate 12/16/22 11:18 2.5 12/16/22 08:00 2 12/16/22 07:40 2.5 12/16/22 02:38 2.5 (2) Diarrhea Diarrhea type: unspecified type Qualified Code(s): R19.7 - Diarrhea, unspecified
[2022-12-16] MEDS ORDERED: POTASSIUM CHLORIDE CRTAB 20 MEQ TABCR PO STA (14:08)
--- NOTE | 2022-12-16 14:48 | Hospitalist Progress Note ---
Date of Service December 16, 2022 Assessment & Plan (1) Pancytopenia: Plan 81-year-old male with PMH of T2DM, HLD, metastatic prostate cancer, AL, tachybradycardia syndrome, status post pacemaker, HTN, CAD status post CABG and stent, chronic systolic CHF, status post TAVR October 2022, GERD, IT band syndrome, hereditary and idiopathic peripheral neuropathy, pulmonary embolism and DVT and PAF on Coumadin presented 3/3 with complaint of diarrhea and weakness. 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 He is being managed for the following: History of metastatic prostate cancer Weakness Pancytopenia Gram-negative bacteremia Patient with diagnosis of prostate cancer, metastatic to multiple sites, started on cabazitaxel a week ago prior to arrival and has various symptoms including we akness/poor appetite/diarrhea. Patient with pancytopenia at presentation which seems to be new compared to October 2022 labs. Admitting CXR with no acute findings. Admitting UA not suggestive of UTI. Admitting Pro-Naeem elevated at 0.74. C. difficile negative. Weakness/diarrhea/poor appetite likely from cabazitaxel Rx versus bacteremia versus his chronic cancer status. Hematology on board, discussed with heme-onc, plan to start on filgrastim. Maintain hemoglobin greater than 8 and platelets greater than 10K. Patient will benefit from palliative care. Patient was on cefepime, will change to Rocephin and add ampicillin to cover for E. coli and Listeria. Repeat blood culture in AM. ID consult. C. difficile negative, c/w home antidiarrheals. Continue with supportive care. PT/OT when able. Patient to maintain follow-up with his outpatient oncology. Likely will benefit from palliative care, patient seems agreeable, will discuss with patient's prior to placing palliative consult. Supratherapeutic INR: Patient on 5 mg Coumadin daily. Admitting INR 9.3 and FOBT positive. noticed some blood in the stools. Patient is status post IV vitamin K, INR 1.6 today, closely monitor H&H, maintain on liquid to full liquid diet, GI consult. Hold Coumadin and aspirin until GI evaluation. GI bleed: Admitting Hb of 11.4; 9.3 next day. FOBT positive, noticed some blood in the stools. Full liquid diet/PPI IV/GI consult. NPO midnight in case any procedures decided for AM. Caution w/ BP meds. HnH 12 hourly or as needed. maintain Hb > 8. Hyponatremia: Admitting sodium of 130, likely secondary to poor appetite and ongoing diarrhea. 134 today. We will continue to monitor. Will encourage p.o. intake once cleared per GI, currently on full liquid diet due to GI bleed. Likely type II NSTEMI: Troponin elevated at presentation, EKG with no acute ST or T changes. Patient with no chest pain. Transaminitis: Likely secondary to ongoing chemo and cancer. Will follow labs. Hepatitis panel. Other chronic medical conditions: Diabetes: On sliding scale insulin while in hospital. Hold home glipizide. PE/DVT/atrial fibrillation: Continue with home amiodarone and metoprolol. Coumadin on hold [see above] GERD: On PPI BPH: On Flomax Chronic systolic CHF: October 2022 echo with EF of 35 to 40%. Patient on gentle hydration due to GI bleed, torsemide and potassium supplements on hold. Monitor closely for volume status. Sick sinus syndrome: Status post pacemaker Status post TAVR October 2022. AL and history of restrictive lung disease and pulmonary hypertension: CPAP at bedtime. DVT prophylaxis: SCDs, GI bleed Full code Admission and Anticipated Discharge Date Admission Date: December 15, 2022 Subjective Patient seen and examined at bedside as a follow-up of weakness, pancytopenia and gram-negative bacteremia. Patient was lying in bed, on 2.5 L oxygen via nasal cannula, denies any new acute event overnight, reports decreasing appetite since last 3 to 4 days, has loose bowel movements but denies blood in it, denies any pain or burning with passing urine or any new cough or joint pain or fever in the last 1 week. Physical Exam Physical Exam: GENERAL: Alert and oriented x3. NAD, on 2.5L NC O2. appears chronically ill/weak/frail. HEENT: No pallor, no icterus. Pupils equal, round and reactive to light. Oral mucosa moist. NECK: No JVD, no neck masses. HEART: S1 and S2 heard. Regular rate and rhythm. No murmur, no gallop. RESPIRATORY SYSTEM: Normal AP diameter. No accessory muscle use. No wheezing, no crackles. ABDOMEN: Soft, bowel sounds present, nontender, no distention. CENTRAL NERVOUS SYSTEM: No facial droop. Speech is clear. Obeys simple commands. Moves extremities. EXTREMITIES: No edema, no erythema seen. Left forearm and hand w/ old bruise. Results & Data Results & Data ([facility]) Vital Signs (Past 12 Hours) Vital Signs Temp Pulse Pulse Resp BP Pulse Ox O2 Del Method 12/16/22 11:18 36.6 C 70 17 101/66 95 Nasal Cannula 12/16/22 08:00 Nasal Cannula 12/16/22 07:40 36.6 C 74 16 98/60 L 96 Nasal Cannula 12/16/22 02:38 37.2 C 82 18 102/66 95 Nasal Cannula O2 Flow Rate 12/16/22 11:18 2.5 12/16/22 08:00 2 12/16/22 07:40 2.5 12/16/22 02:38 2.5
[2022-12-16] MEDS: AMPICILLIN 2,000 MG in SODIUM CHLOR 0.9% AD-VAN 100 ML IV SCH ×2 (14:56→21:46)
[2022-12-16] MEDS: DIPHENOXYLATE/ATROPINE 2.5/0.025MG TAB PO PRN ×2 (15:00→20:28)
[2022-12-16] MEDS: ADVANCED PROBIOTIC 1250 MG CAPSULE PO SCH (15:26)
[2022-12-16] MEDS: FILGRASTIM 480 MCG/1.6 ML VIAL SC SCH (16:18)
[2022-12-16 17:05] LABS: Hematocrit (blood only) 24.2 % (42.0-52.0); Hemoglobin 8.7 g/dl (14.0-18.0); Mean Corpuscular Hemoglobin 31.1 pg (25.0-34.0); Mean Corpuscular Volume 86.4 fL (80.0-100.0); Mean Platelet Volume 11.5 fL (9.4-12.4); Platelet Count 46 K/uL (130-400); RDW Coefficient of Variation 15.1 % (11.5-14.5); RDW Standard Deviation 48.1 fL (36.4-46.3); White Blood Count 0.19 K/ul (4.8-10.8)
[2022-12-16] MEDS: cefTRIAXone SODIUM 2,000 MG in DEXTROSE 5% 50 ML IV SCH (20:10)
[2022-12-16 20:28] LABS: Hematocrit (blood only) 25.4 % (42.0-52.0)
[2022-12-16] MEDS: ATORVASTATIN 40 MG TAB PO SCH (20:29)
[2022-12-16] MEDS: PANTOprazole 40 MG in SYRINGE 0 ML IV SCH (21:47)
[2022-12-17] MEDS: AMPICILLIN 2,000 MG in SODIUM CHLOR 0.9% AD-VAN 100 ML IV SCH ×4 (02:03→22:14)
[2022-12-17] MEDS: [UNRECOGNIZED DRUG - REMARK] SCH ×3 (02:03→17:02)
[2022-12-17] MEDS: DIPHENOXYLATE/ATROPINE 2.5/0.025MG TAB PO PRN ×2 (05:35→12:52)
[2022-12-17 07:57] LABS: Hematocrit (blood only) 25.1 % (42.0-52.0); Hemoglobin 8.5 g/dl (14.0-18.0); Mean Corpuscular Hemoglobin 30.2 pg (25.0-34.0); Mean Corpuscular Hgb Conc 33.9 g/dL (32.0-36.0); Mean Corpuscular Volume 89.3 fL (80.0-100.0); Platelet Count 42 K/uL (130-400); RDW Coefficient of Variation 15.1 % (11.5-14.5); RDW Standard Deviation 49.5 fL (36.4-46.3); Red Blood Count 2.81 M/uL (4.70-6.10); White Blood Count 0.39 K/ul (4.8-10.8)
[2022-12-17 08:06] LABS: Albumin Level 2.6 gm/dl (3.4-5.0); Bilirubin Direct 0.3 mg/dl (0-0.2); Calcium 6.7 mg/dl (8.5-10.1); Creatinine Clr Calc Pharmacy 90.5 ml/min; Est GFR (African American) 101.9 ml/min; Est GFR (Non-African American) 87.9 ml/min; Phosphorus 1.2 mg/dl (2.5-4.9); Potassium 3.2 mmol/L (3.5-5.1); Total Protein 5.2 gm/dl (6.0-8.3)
[2022-12-17 08:07] LABS: INR 1.2 (0.9-1.1); Prothrombin Time 12.5 Seconds (9.0-12.0)
[2022-12-17] MEDS: INSULIN ASPART PER UNIT SC SCH ×4 (08:41→23:49)
[2022-12-17] MEDS: SODIUM CHLORIDE 0.9% 1000ML 1,000 ML IV SCH (08:42)
[2022-12-17] MEDS: predniSONE 5 MG TAB PO SCH ×2 (08:44→21:35)
[2022-12-17] MEDS: METOPROLOL SUCC 25MG EXT REL TAB PO SCH ×2 (08:44→21:35)
[2022-12-17] MEDS: FAMOTIDINE 20 MG TAB PO SCH ×2 (08:44→21:34)
[2022-12-17] MEDS: ADVANCED PROBIOTIC 1250 MG CAPSULE PO SCH (08:45)
[2022-12-17] MEDS: TAMSULOSIN HCL 0.4 MG CAP PO SCH (08:45)
[2022-12-17] MEDS: CEROVITE ADV FORMULA TAB PO SCH (08:45)
[2022-12-17] MEDS: AMIODARONE 200 MG TAB PO SCH (08:45)
[2022-12-17] MEDS: CHOLECALCIFEROL 1,000 UNITS 25 MCG TAB PO SCH (08:45)
[2022-12-17] MEDS: ASCORBIC ACID 500 MG TAB PO SCH (08:45)
[2022-12-17] MEDS: LORATADINE 10 MG TAB PO SCH (08:45)
[2022-12-17] MEDS: FLUTICASONE PROPIONATE NA SPR 16 GM BTL NAE SCH ×2 (08:46→21:36)
[2022-12-17] MEDS: FILGRASTIM 480 MCG/1.6 ML VIAL SC SCH (08:47)
[2022-12-17] MEDS: LANTUS PER UNIT CHARGE SQ SCH (08:50)
[2022-12-17] MEDS: PANTOprazole 40 MG in SYRINGE 0 ML IV SCH ×2 (08:51→21:28)
[2022-12-17] MEDS ORDERED: POTASSIUM PHOS 3 MMOL/1 ML INFUSION IV STA (09:01)
[2022-12-17] MEDS ORDERED: POTASSIUM CHLORIDE CRTAB 20 MEQ TABCR PO STA (09:15)
[2022-12-17] MEDS ORDERED: POTASSIUM PHOSPHATE 21 MMOL in SODIUM CHLORIDE 0.9% 500 ML IV ONE (09:30)
[2022-12-17] MEDS: NYSTATIN POWDER 15GM BTL EXT SCH ×3 (10:23→21:36)
--- NOTE | 2022-12-17 12:19 | Gastrointestinal Consultation ---
Date of Consultation December 17, 2022 Supervising Physician Co-Signing Physician Notes 81 yo male with significant heart history, prostate cancer on chemo, admitted with weakness and found to be panctyopenic. Gi consult for anemia and ? + fobt. No overt bleeding noted, no bun rise. egd/colon done in his 70's. At the current time, no plans for a scopes. Likely his anemia and weakness are related to his heme/onc diagnosis. History of Present Illness Reason for Consultation: Anemia, ? fobt Requesting Physician: Dr. 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 labs notable for pancytopenia, no overt gi bleeding noted. Has been seen by hematology with hematology input suggesting weakness is likely from underlying cancer, chemo, palliative care is being considered. Prior egd done by Dr. Garcia in 2017 with findings of schatzkis ring, colon in 2014 with findings of diverticulosis and polyps. No overt complaints reported other than weakness. Allergies Allergy/AdvReac Type Severity Reaction Status Date / Time No Known Allergies Allergy Verified 12/15/22 20:15 Home Medications Medication Instructions Recorded Confirmed Type glucosamine sulf dipot 1 cap PO AMHS 02/21/19 12/15/22 History chlr,msm,chond 550 mg-C 30 mg-erum 1 mg capsule (Glucosamine Chondroitin) nitroglycerin 0.4 mg sublingual 0.4 mg sublingual DIRECTED PRN 02/21/19 12/15/22 History tablet (Nitrostat) Chest Pain omeprazole 20 mg capsule,delayed 20 mg PO BID 02/21/19 12/15/22 History release potassium chloride 10 mEq 20 meq PO QAM 02/21/19 12/15/22 History tablet,extended release(part/cryst) (Klor-Con M) cholecalciferol (vitamin D3) 25 25 mcg PO QAM 01/08/21 12/16/22 History mcg (1,000 unit) tablet vit C 250 mg-vit E 90 mg-zinc 40 2 tab PO DAILY 10/16/21 12/15/22 History mg-copper 1 np-nxlovl-oktkyt capsule (PreserVision AREDS-2) famotidine 20 mg tablet (Pepcid) 20 mg PO BID 03/17/22 12/15/22 History prednisone 5 mg tablet 5 mg PO AMHS 03/17/22 12/15/22 History acetaminophen 325 mg tablet 650 - 975 mg PO DAILY PRN 03/28/22 12/15/22 History (Tylenol) PAIN/FEVER ascorbic acid (vitamin C) 500 mg 1,000 mg PO DAILY 03/28/22 12/15/22 History tablet (Vitamin C) hydrocortisone 2.5 % topical cream 1 applic topical DAILY PRN 03/28/22 12/15/22 History UNDERARMS FOR FLARE UPS amiodarone 200 mg tablet 200 mg PO QAM 07/04/22 12/15/22 History loratadine 10 mg tablet (Claritin) 10 mg PO QAM 07/04/22 12/15/22 History aspirin 81 mg chewable tablet 81 mg PO QAM 10/15/22 12/15/22 History glipizide 5 mg tablet 2.5 mg PO DAILY 10/15/22 12/15/22 History tacrolimus 0.1 % topical ointment 1 applic topical BID PRN FLARES OF 10/15/22 12/15/22 History PSORIASIS tamsulosin 0.4 mg capsule (Flomax) 0.4 mg PO QAM 10/15/22 12/15/22 History atorvastatin 40 mg tablet (Lipitor) 40 mg PO PM 10/27/22 12/15/22 History fluticasone propionate 50 2 spray intranasal BID 11/05/22 12/15/22 History mcg/actuation nasal spray,suspension torsemide 20 mg tablet 20 mg PO QAM 11/05/22 12/15/22 History warfarin 5 mg tablet 5 mg PO DAILY@1600 #30 tabs 11/14/22 12/15/22 Rx diphenoxylate-atropine 2.5 1 tab PO QID PRN Diarrhea 12/15/22 12/15/22 History mg-0.025 mg tablet metoprolol succinate 25 mg 25 mg PO AMHS 12/15/22 12/15/22 History tablet,extended release 24 hr nystatin 100,000 unit/gram topical 1 applic topical TID 12/15/22 12/15/22 History powder ondansetron HCl 8 mg tablet 8 mg PO Q8H PRN Nausea 12/15/22 12/15/22 History prochlorperazine maleate 10 mg 10 mg PO Q6 PRN Nausea 12/15/22 12/15/22 History tablet Patient History Medical History Acute respiratory failure with hypoxia Aortic stenosis Asthma Atrial fibrillation with RVR CAD (coronary artery disease) Status post PCI with a BMS to the mid LAD on 05/16/2016. 2.May 26, 2016 diagnostic cardiac catheterization at [facility], Dr. 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 Also, far beyond the stent, there was visible healed dissection flap, Type B, non- obstructive. 3.Status post CABG x 1 with a ABRAMS to LAD for persistent angina, May 2016. 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 Surgical History H/O esophagogastroduodenoscopy Hx of total knee arthroplasty S/P CABG x 1 S/P cholecystectomy S/P hip replacement S/P knee replacement Family History Other Diabetes Heart disease Social History Smoking Status: Never smoker Tobacco Type: Cigarettes Cigarettes Per Day: 40; Second Hand Exposure: No; Hx Alcohol Use: No Hx Substance Use: No Preferred Language: Samoan Communication Ability: Effective Visual Impairment: No Limitations Hearing Ability: Normal Recreation Therapy Director Required: No Beliefs That Will Affect Care: None marital status: Current Living Situation: Spouse Current Living Situation Comment: Home with Other Information That Helps Us Care for You: No Feels Safe at Home: Yes Safety Concerns: Feels Safe At This Time Assistive Devices: CPAP and Walker Review of Systems Review of Systems: All systems reviewed & are unremarkable except as noted in HPI & below Results & Data ([facility]) Vital Signs (Past 12 Hours) Vital Signs Temp Pulse Pulse Pulse Resp BP Pulse Ox 12/17/22 07:50 12/17/22 07:51 71 12/17/22 07:35 36.7 C 64 18 123/73 95 12/17/22 03:02 37.0 C 73 20 104/59 L 97 O2 Del Method O2 Flow Rate 12/17/22 07:50 Nasal Cannula 2 12/17/22 07:51 12/17/22 07:35 Nasal Cannula 2.5 12/17/22 03:02 Nasal Cannula 2 Laboratory Results pancytopenic Diagnostic Findings last egd/colon reviewed in [employer]
[2022-12-17] MEDS ORDERED: LOPERAMIDE HCL 2 MG CAP PO STA (14:35)
[2022-12-17 14:53] LABS: Hematocrit (blood only) 24.2 % (42.0-52.0); Hemoglobin 8.4 g/dl (14.0-18.0)
--- NOTE | 2022-12-17 15:54 | Hospitalist Progress Note ---
Date of Service December 17, 2022 Assessment & Plan (1) Pancytopenia: Plan 81-year-old male with PMH of T2DM, HLD, metastatic prostate cancer, AL, tachybradycardia syndrome, status post pacemaker, HTN, CAD status post CABG and stent, chronic systolic CHF, status post TAVR October 2022, GERD, IT band syndrome, hereditary and idiopathic peripheral neuropathy, pulmonary embolism and DVT and PAF on Coumadin presented 3/ with complaint of diarrhea and weakness. Of note, patient was diagnosed with prostate cancer in October 2016, follows hematology oncology- pt has been told he has incurable disease, was undergoing palliative care with cabazitaxel which was started about a week ago [employer] since which time he has been very weak with poor appetite and has had diarrhea. He is being managed for the following: History of metastatic prostate cancer Weakness Pancytopenia Gram-negative bacteremia Patient with diagnosis of prostate cancer, metastatic to multiple sites, started on cabazitaxel a week ago prior to arrival and has various symptoms including we akness/poor appetite/diarrhea. Patient with pancytopenia at presentation which seems to be new compared to October 2022 labs. Admitting CXR with no acute findings. Admitting UA not suggestive of UTI. Admitting Pro-Naeem elevated at 0.74. C. difficile negative. Weakness/diarrhea/poor appetite likely from cabazitaxel Rx versus bacteremia versus his chronic cancer status. Hematology on board, pt on filgrastim. Maintain hemoglobin greater than 8 and platelets greater than 10K. Patient will benefit from palliative care. c/w Rocephin / and ampicillin / to cover for E. coli and Listeria. 12/17 Bl Culture: pending; Await ID consult. C. difficile negative, c/w home antidiarrheals. Continue with supportive care. PT/OT when able. Patient to maintain follow-up with his outpatient oncology. Palliative consulted, await recs. Supratherapeutic INR: Patient on 5 mg Coumadin daily. Admitting INR 9.3 and FOBT positive. noticed some blood in the stools. Patient is status post IV vitamin K, INR 1.6 12/16, closely monitor H&H, maintain on liquid to full liquid diet, GI consult. Hold Coumadin and aspirin , GI evaled - no plan for sc opes. GI bleed: Admitting Hb of 11.4; 9.3 next day. FOBT positive, noticed some blood in the stools. Full liquid diet/PPI IV/GI consult. Caution w/ BP meds. HnH 12 hourly or as needed. maintain Hb > 8. GI evaled, appreciate recs. Hyponatremia: Admitting sodium of 130, likely secondary to poor appetite and ongoing diarrhea. 136 today. resolved. Likely type II NSTEMI: Troponin elevated at presentation, EKG with no acute ST or T changes. Patient with no chest pain. Transaminitis: Likely secondary to ongoing chemo and cancer. Will follow labs. Hepatitis panel pending. Other chronic medical conditions: Diabetes: On sliding scale insulin while in hospital. Hold home glipizide. PE/DVT/atrial fibrillation: Continue with home amiodarone and metoprolol. Coumadin on hold [see above] GERD: On PPI BPH: On Flomax Chronic systolic CHF: October 2022 echo with EF of 35 to 40%. Patient on gentle hydration due to GI bleed, torsemide and potassium supplements on hold. Monitor closely for volume status. Sick sinus syndrome: Status post pacemaker Status post TAVR October 2022. AL and history of restrictive lung disease and pulmonary hypertension: CPAP at bedtime. DVT prophylaxis: SCDs, GI bleed Full code Admission and Anticipated Discharge Date Admission Date: December 15, 2022 Subjective Patient seen and examined at bedside as a follow-up of weakness, pancytopenia and gram-negative bacteremia. Patient was lying in bed, on 3 L oxygen via nasal cannula, denies any new acute event overnight, was npo in am, resumed diet later on - gi evaled/no plan for scopes. Pt reports mulitple loose stools, will try imodium., denies any pain or burning with passing urine or any new cough or joint pain or fever or other ROS but reports not feeling well. Pt's at bedside was updated later in the morning with another visit. Discussed about palliative care and she was agreeable to have palliative care onboard. Updated her on current status of the patient and need for holding Coumadin given gi bleed and slow drop in Hb; though there is always risks of c lots or stroke when not on coumadin which she was made aware of. she voiced understanding and was agreeable to plan of care. Physical Exam Physical Exam: GENERAL: Alert and oriented x3. NAD, on 3L NC O2. appears chronically ill/weak/frail. HEENT: No pallor, no icterus. Pupils equal, round and reactive to light. Oral mucosa moist. NECK: No JVD, no neck masses. HEART: S1 and S2 heard. Regular rate and rhythm. No murmur, no gallop. RESPIRATORY SYSTEM: Normal AP diameter. No accessory muscle use. No wheezing, no crackles. ABDOMEN: Soft, bowel sounds present, nontender, no distention. CENTRAL NERVOUS SYSTEM: No facial droop. Speech is clear. Obeys simple commands. Moves extremities. EXTREMITIES: No edema, no erythema seen. Left forearm and hand w/ old bruise. Results & Data Results & Data ([facility]) Vital Signs (Past 12 Hours) Vital Signs Temp Pulse Pulse Pulse Resp BP Pulse Ox 12/17/22 15:30 36.6 C 69 18 114/70 97 12/17/22 14:21 79 12/17/22 12:20 36.8 C 71 17 120/70 98 12/17/22 07:50 12/17/22 07:51 71 12/17/22 07:35 36.7 C 64 18 123/73 95 O2 Del Method O2 Flow Rate 12/17/22 15:30 Nasal Cannula 2 12/17/22 14:21 12/17/22 12:20 Nasal Cannula 2.5 12/17/22 07:50 Nasal Cannula 2 12/17/22 07:51 12/17/22 07:35 Nasal Cannula 2.5
[2022-12-17] MEDS: ATORVASTATIN 40 MG TAB PO SCH (21:33)
[2022-12-17] MEDS: cefTRIAXone SODIUM 2,000 MG in DEXTROSE 5% 50 ML IV SCH (22:15)
[2022-12-18] MEDS: [UNRECOGNIZED DRUG - REMARK] SCH ×2 (01:13→09:08)
[2022-12-18] MEDS: AMPICILLIN 2,000 MG in SODIUM CHLOR 0.9% AD-VAN 100 ML IV SCH ×4 (02:54→22:20)
[2022-12-18 08:20] LABS: Hemoglobin 8.8 g/dl (14.0-18.0); Mean Corpuscular Hemoglobin 30.3 pg (25.0-34.0); Mean Corpuscular Hgb Conc 33.8 g/dL (32.0-36.0); Mean Corpuscular Volume 89.7 fL (80.0-100.0); Mean Platelet Volume 11.1 fL (9.4-12.4); Nucleated RBC # (auto) 0.03 K/uL (0-0.12); Nucleated RBC % (auto) 8.3 %; Platelet Count 40 K/uL (130-400); RDW Coefficient of Variation 15.1 % (11.5-14.5); RDW Standard Deviation 49.1 fL (36.4-46.3); White Blood Count 0.36 K/ul (4.8-10.8)
[2022-12-18 08:30] LABS: BUN Creatinine Ratio 15.2 (10-20); Calcium 6.7 mg/dl (8.5-10.1); Est GFR (African American) 104.4 ml/min; Potassium 3.1 mmol/L (3.5-5.1)
[2022-12-18 08:40] LABS: Phosphorus 1.1 mg/dl (2.5-4.9)
[2022-12-18 08:43] LABS: INR 1.2 (0.9-1.1); Prothrombin Time 12.5 Seconds (9.0-12.0)
[2022-12-18] MEDS ORDERED: POTASSIUM PHOS 3 MMOL/1 ML INFUSION IV STA (08:47)
[2022-12-18] MEDS ORDERED: POTASSIUM PHOSPHATE 21 MMOL in SODIUM CHLORIDE 0.9% 500 ML IV ONE (09:00)
--- NOTE | 2022-12-18 09:03 | Gastroenterology Progress Note ---
Date of Service December 18, 2022 Assessment & Plan (1) Pancytopenia: (2) Diarrhea: (3) Chemotherapy adverse reaction: Plan 81 yo male with significant PMHx including prostate cancer on chemo, admitted with weakness and found to be pancytopenic. GI consulted for anemia and ? + fobt. - Labs are stable including HGB 8.8 - He's had no overt GI bleeding since admission and no BUN rise - Prior EGD/colon were performed several years ago - were reviewed - Likely his anemia and weakness are related to his heme/onc diagnosis, chemo - At the current time, no plans for endoscopy - Can tx his acute on chronic diarrhea with Imodium PRN - Appreciate primary/heme/onc teams mgmt of his co-morbidities - GI will sign off, please call with questions or change in pt condition Admission and Anticipated Discharge Date Admission Date: December 15, 2022 Supervising Physician Co-Signing Physician Notes I have personally seen and examined the patient on 12/18/2022 and agree with the plan and recommendations as above by Shi Woody PA-C. 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 GI was consulted for anemia and + FOBT. Patient has no overt signs of GI bleeding including melena, hematochezia, or hematemesis. Prior egd done by Dr. Garcia in 2018 with findings of schatzkis ring, colon in 2015 with findings of diverticulosis and polyps. Physical exam: abdomen is soft, non-tender, non distended. Normal respiratory effort. CTA b/l. RRR no murmurs. AAOx3. Stools have been brown here. Suspect anemia is related to his underlying gilbert gnancy and is not due to GI blood loss. No plans for any inpatient endoscopy at this time. BUN is normal as well. GI will sign off but please re-consult with further questions. Luz Elena Carmona, DO Gastroenterology and Hepatology Subjective Patient seen and examined, chart reviewed. No acute events overnight. Pt states he feels about the same; having SOB and diarrhea. This AM had cream of wheat for breakfast and tolerated well. States diarrhea is baseline for him x many years and he manages this with PRN Imodium; since starting chemo diarrhea has worsened. C diff testing negative. No black or bloody stools, abd pain, nausea, vomiting, hematemesis, CP. Review of Systems Review of Systems: All systems reviewed & are unremarkable except as noted in HPI & below Physical Exam Constitutional: well developed and comfortable; no acute distress + chronically ill appearing Eyes: Sclera anicteric, no conjunctival injection ENMT: +pale conjunctiva Neck: trachea midline supple Respiratory: Normal respiratory effort, O2 via NC in place Cardiovascular: RRR, no murmur, no edema Gastrointestinal (Abdomen): normal bowel sounds, soft, nontender, no hepatosplenomegaly Inspection/Auscultation: abdomen not distended Skin: no rashes, warm and dry Neurologic: alert and oriented x 3, no obvious focal neuro deficit Psychiatric: normal mood and affect Results & Data ([facility]) Vital Signs (Past 12 Hours) Vital Signs Temp Pulse Pulse Resp BP Pulse Ox O2 Del Method 12/18/22 07:31 36.3 C L 76 18 130/68 96 Nasal Cannula 12/18/22 03:59 78 12/18/22 03:06 36.6 C 71 20 122/71 96 Nasal Cannula 12/18/22 00:15 36.6 C 70 20 102/64 96 Nasal Cannula 12/18/22 00:03 Nasal Cannula O2 Flow Rate 12/18/22 07:31 3 12/18/22 03:59 12/18/22 03:06 2 12/18/22 00:15 2 12/18/22 00:03 3 Laboratory Results 12/18/22 12/18/22 12/18/22 Range/Units 08:32 07:54 07:54 WBC 0.36 L* (4.8-10.8) K/ul RBC 2.90 L (4.70-6.10) M/uL Hgb 8.8 L (14.0-18.0) g/dl Hct 26.0 L (42.0-52.0) % MCV 89.7 (80.0-100.0) fL MCH 30.3 (25.0-34.0) pg MCHC 33.8 (32.0-36.0) g/dL RDW Std Deviation 49.1 H (36.4-46.3) fL RDW Coeff of Bradly 15.1 H (11.5-14.5) % Plt Count 40 L (130-400) K/uL MPV 11.1 (9.4-12.4) fL Absolute Nucleated RBC 0.03 (0-0.12) K/uL Nucleated RBC % (auto) 8.3 % PT (9.0-12.0) Seconds INR (0.9-1.1) Sodium 137 (136-145) mmol/L Potassium 3.1 L (3.5-5.1) mmol/L Chloride 105 (98-107) mmol/L Carbon Dioxide 27 (21-32) mmol/L Anion Gap 5 (3-11) BUN 10 (6-23) mg/dl Creatinine 0.66 (0.6-1.4) mg/dl Est Cr Clr Drug Dosing 96.0 ml/min Est GFR ( Amer) 104.4 ml/min Est GFR (Non-Af Amer) 90.0 ml/min BUN/Creatinine Ratio 15.2 (10-20) Glucose 225 H (70-99(Fasting)) mg/dl POC Glucose 235 H (70-99) mg/dl Calcium 6.7 L (8.5-10.1) mg/dl Phosphorus 1.1 L* (2.5-4.9) mg/dl Magnesium 2.0 (1.7-2.4) mg/dl 12/18/22 12/17/22 12/17/22 Range/Units 07:54 23:40 16:45 WBC (4.8-10.8) K/ul RBC (4.70-6.10) M/uL Hgb (14.0-18.0) g/dl Hct (42.0-52.0) % MCV (80.0-100.0) fL MCH (25.0-34.0) pg MCHC (32.0-36.0) g/dL RDW Std Deviation (36.4-46.3) fL RDW Coeff of Bradly (11.5-14.5) % Plt Count (130-400) K/uL MPV (9.4-12.4) fL Absolute Nucleated RBC (0-0.12) K/uL Nucleated RBC % (auto) % PT 12.5 H (9.0-12.0) Seconds INR 1.2 H (0.9-1.1) Sodium (136-145) mmol/L Potassium (3.5-5.1) mmol/L Chloride (98-107) mmol/L Carbon Dioxide (21-32) mmol/L Anion Gap (3-11) BUN (6-23) mg/dl Creatinine (0.6-1.4) mg/dl Est Cr Clr Drug Dosing ml/min Est GFR ( Amer) ml/min Est GFR (Non-Af Amer) ml/min BUN/Creatinine Ratio (10-20) Glucose (70-99(Fasting)) mg/dl POC Glucose 220 H 205 H (70-99) mg/dl Calcium (8.5-10.1) mg/dl Phosphorus (2.5-4.9) mg/dl Magnesium (1.7-2.4) mg/dl 12/17/22 12/17/22 Range/Units 14:41 11:28 WBC (4.8-10.8) K/ul RBC (4.70-6.10) M/uL Hgb 8.4 L (14.0-18.0) g/dl Hct 24.2 L (42.0-52.0) % MCV (80.0-100.0) fL MCH (25.0-34.0) pg MCHC (32.0-36.0) g/dL RDW Std Deviation (36.4-46.3) fL RDW Coeff of Bradly (11.5-14.5) % Plt Count (130-400) K/uL MPV (9.4-12.4) fL Absolute Nucleated RBC (0-0.12) K/uL Nucleated RBC % (auto) % PT (9.0-12.0) Seconds INR (0.9-1.1) Sodium (136-145) mmol/L Potassium (3.5-5.1) mmol/L Chloride (98-107) mmol/L Carbon Dioxide (21-32) mmol/L Anion Gap (3-11) BUN (6-23) mg/dl Creatinine (0.6-1.4) mg/dl Est Cr Clr Drug Dosing ml/min Est GFR ( Amer) ml/min Est GFR (Non-Af Amer) ml/min BUN/Creatinine Ratio (10-20) Glucose (70-99(Fasting)) mg/dl POC Glucose 217 H (70-99) mg/dl Calcium (8.5-10.1) mg/dl Phosphorus (2.5-4.9) mg/dl Magnesium (1.7-2.4) mg/dl (2) Diarrhea Diarrhea type: unspecified type Qualified Code(s): R19.7 - Diarrhea, unspecified (3) Chemotherapy adverse reaction Encounter type: initial encounter Qualified Code(s): T45.1X5A - Adverse effect of antineoplastic and immunosuppressive drugs, initial encounter
[2022-12-18] MEDS: INSULIN ASPART PER UNIT SC SCH ×4 (09:05→21:05)
[2022-12-18] MEDS: FILGRASTIM 480 MCG/1.6 ML VIAL SC SCH (09:05)
[2022-12-18] MEDS: predniSONE 5 MG TAB PO SCH ×2 (09:07→21:08)
[2022-12-18] MEDS: FAMOTIDINE 20 MG TAB PO SCH ×2 (09:07→21:52)
[2022-12-18] MEDS: FLUTICASONE PROPIONATE NA SPR 16 GM BTL NAE SCH ×2 (09:07→21:04)
[2022-12-18] MEDS: NYSTATIN POWDER 15GM BTL EXT SCH ×3 (09:08→21:04)
[2022-12-18] MEDS: LANTUS PER UNIT CHARGE SQ SCH ×2 (09:15→21:05)
[2022-12-18] MEDS: POTASSIUM CHLORIDE CRTAB 20 MEQ TABCR PO SCH ×2 (09:15→15:28)
[2022-12-18] MEDS ORDERED: CHOLESTYRAMINE LIGHT 4 GM PKT PO SCH (10:00)
--- NOTE | 2022-12-18 10:02 | Palliative Care Consultation ---
Date of Consultation December 18, 2022 Assessment & Plan (1) Palliative care by specialist: Met with pt/family. Provided overview of Palliative Medicine, a subspecialty that provides specialized medical care for people living with a serious illness by offering a focus on quality of life. Palliative Medicine is often conflated with hospice: I advised patient/family that Palliative and hospice can be partners but we are not the same. It is important to understand the difference so that we may be informed, and not afraid. Palliative Medicine works to improve QOL through reduction of symptom burden/more control over their illness, for both the patient and family. Palliative medicine clinicians are board certified, specially-trained and another member of the patient's medical care team. We often provide an extra layer of support because our care is based on the needs of the patient, not the prognosis; as such, it's appropriate at any age/advancing stage of a serious illness and can be provided along with curative treatment. Palliative Medicine clinicians are also trained in advanced communication methodologies, to facilitate complex discussions about advanced illness planning, which are needed to help assure that the treatment choices match the patient's goals, aka delivering Goal Concordant care. Finally, we discussed that hospice is a visiting nurse service that focuses on care delivered at the very end of life for patients with terminal illness, with life expectancy less than 6 month. For Oncology Patients: Patient's Palliative Prognostic Score (PaP) Score = 12 points/Interpretation:30-day survival probability <30% Patient's Palliative Prognostic Index (PPI) Score = 11 points/Note:If the PPI is greater than 6.0, survival is less than three weeks (Sensitivity - 80%; Specificity - 85%). (2) Advanced care planning/counseling discussion: In addition to the time spent directly with patient for palliative medicine consultation, and additional 55 minutes was spent in [id number] discussion for advance care planning and the goals of care together with patient, his and daughter at the bedside. An additional 20 minutes was spent outside of patient's room in the hallway with his and daughter who had additional ques tions and concerns I did not wish to discuss directly in front of patient. We reviewed that all chronic/progressive disease has a declining trajectory over time where facets of patient self-identity and independence are lost. Every acute event leads to a further decline, resulting- many times, in a new baseline. Advised that the greatest priority is to determine what matters most to pt, then family and to develop a plan of care that is aligned with those priorities.I have provided education about the hospice benefit. Hospice is an interdisciplinary program offered by nurses, nurses aides, social workers, chaplains and a medical staff services manager for patients with a terminal condition and a life expectancy of less than 6 months. The goal would be to improve the quality of life of the patient in their home setting (home, half-way, inpatient hospice setting) by providing symptoms management, psychosocial and spiritual support. However, they cannot offer 24 hours care and if the family is unable to provide that care, they will have to consider personal care with out of pocket cost vs. half-way placement. Patient's family is committed to honoring his wishes to be home for end-of-life. Patient states that he is at peace and knows that he is terminally ill. He states that he does not wish to prolong his dying or have any protracted suffering. He wants to be home if at all possible. He indicates that his 2 daughters and additional family members including several grandsons would be able to assist in his care and he feels that he would be safe at home. He would like to see if his diarrhea could be improved a little bit before going home because he worries that it would be quite a burden on his family to try and manage all the time. Patient states that he has reconciled with himself but this is an end-of-life process. His adds "he is right with the Lord," and that as a family they are ready to face this final chapter. Patient acknowledges that he is fortunate to have the love and support of a devoted family with the willingness to honor his final wishes. His daughter at the bedside today lives in [place] but is committed to being here to help patient and his through this final end-of-life journey. When meeting outside of the patient's room, patient's and daughter had several questions about what to expect and changes they may see. I reviewed the palliative prognostic scoring and advised that I felt patient likely had a few weeks to a month or so for an anticipated survival. I also emphasized that sometimes, when we stop doing aggressive things or interventions with more toxicities to someone, they may recover to where their quality of life substantially improved with good symptom management and sometimes this time of anticipated survival can be extended. They were appreciative of this information and noted that patient has been hopeful to be able to live long enough through February where he would be able to attend his granddaughter's wedding as she had requested that he bring her down the aisle. We discussed changes pt may move through in the dying process including but not limited to sleeping more, disorientation when awake, restlessness, diminished senses/inability to respond to stimulus although ability to be aware of them remains intact longer, changes in body temperatures, skin changes/mottling/cyanosis, respiratory pattern changes, oral secretions. Family verbalized understanding. The goal is to assure a peaceful . I reassured them that hospice would walk this final chapter with them and be able to explain the changes as they were happening as well as predict upcoming changes when patient transitions to a more active dying process. I also provided them with the following education: TEACHING THE FAMILY WHAT TO EXPECT WHEN THE PATIENT IS DYING (from Vicente Cao MD, PhD) Introduction: Family members look to the medical team to help them know what to expect when a loved one is dying. No matter the underlying causes, there is a common final pathway that most patients travel. 1. Social Withdrawal is normal for the dying patient as the person becomes less concerned about his or her surroundings. Separation begins first from the world no more interest in newspaper or television, then from people no more neighbors visiting, and finally from the children, grandchildren and perhaps even those persons most loved. With this withdrawal comes less of a need to communicate with others, even with close family. 2. Food: The patient will have a decreased need for food and drink as the body is preparing to . This is one of the hardest things for some family to accept. There is a gradual decrease in interest in eating and appetiteeven for their favorite foods. Interest may come and go. The patient is not starving to deaththis reflects the underlying disease. Liquids are preferred to solidsfollow the patients lead and do not force feed. 3. Sleep: The patient will spend more and more time sleeping; it may be difficult for them to keep their eyes open. This is a result of a change in the bodys metabolism as a result of the disease. Tell family to spend more time with the patient during those times when he/she is most alert; this might be the middle of the night. 4. Disorientation: The patient may become confused about time, place and the identity of people around him/her. He/she may see people who are not there, such as family members who have already . Sometimes patients describe welcoming or beckoning. While the patient may not be distressed, it is frequently distressing to family or health foster care case manager. Gently orient the patient if he or she asks. There is no need to correct the patient if he or she is not distressed. 5. Restlessness: The patient may become restless and pull at the bed linens. These symptoms are also a change in the bodys metabolism. Talk calmly and assuredly with the patient so as not to startle or frighten them. If the patient is a danger to himself or others, you may prescribe sedating neuroleptics (e.g.chlorpromazine), or neuroleptics (e.g. haloperidol) in combination with benzodiazepines (e.g. lorazepam), to help the patient rest. 6. Decreased Senses: Clarity of hearing and vision may decrease. Soft lights in the room may prevent visual misinterpretations. Never assume that the patient cannot hear you, as hearing is the last of the five senses to be lost. 7. Incontinence of urine and bowel movements is often not a problem until is very near. Invite family to participate in direct care; the nurse can help place absorbent pads under the patient for more comfort and cleanliness, or a urinary catheter may be used. The amount of urine will decrease and the urine become darker as becomes near. 8. Physical Changes as approaches: a. The blood pressure decreases; the pulse may increase or decrease. c. The body temperature can fluctuate; fever is common. d. There is increased perspiration often with clamminess. e. The skin color changes: flushed with fever, bluish with cold. A pale yellowish pallor (not to be confused with jaundice) often accompanies approaching . f. Breathing changes also occur. Respirations may increase, decrease or become irregular; periods of no breathing (apnea) are common. g. Congestion will present as a rattling sound in the lungs and/or upper throat. This occurs because the patient is too weak to clear the throat or cough. The congestion can be affected by positioning, may be very loud, and sometimes just comes and goes. Anticholinergic medications (like scopolamine or glycopyrrolate) can help (see Fast Fact #109). Elevating the head of bed and swabbing the mouth with oral swabs give comfort and give the family something to do. h. The arms and legs may become cool to the touch. The hands and feet become purplish. The knees, ankles and elbows are blotchy. These symptoms are a result of decreased circulation. i. The patient will enter a coma before and not respond to verbal or tactile stimuli. HOW TO KNOW THAT HAS OCCURRED No breathing and heartbeat. Loss of control of bowel or bladder. No response to verbal commands or gentle shaking. Eyelids slightly open; eyes fixed on a certain spot. Jaw relaxed and mouth slightly open. Acknowledgement: This Fact Fact was adapted with permission from a family information handout (The Blue Sheet) given to families of [facility]. References 1. Vernon Flowers, Joann I. The terminal phase. In: Misael James, Fannie PASCAL, Lamonte Lin, eds. [employer] Textbook of Palliative Medicine. 2nd ed. Carroll, Jaswinder: [employer]; 1998. 2. Nguyen J, Baeza C. Care of the dying patient: the last hours or days of life. BMJ. 2003; 326(5959):30-4. 3. Clemente FD, yasmin Butler CF, Karson LL. Competency in End of Life Care: the last hours of living. J Palliat Med. 2003; 6(4):605-613. Patient's also inquired about the cessation of his anticoagulation. She feels that it might be dangerous if they try to restart his anticoagulation at this point given his weakness, low blood counts, and prior history of petechial hemorrhages when his INR is started to run too high. We talked about how the current hold for his anticoagulation will help bring his INR back down and that if he desires when they return home he can resume some gentle anticoagulation with a daily baby aspirin if tolerated. Patient's also requested some talking maps to utilize and discussing end-of-life care transitions with patient and we agreed that the best way to approach these conversations with him would be to emphasize that they were transitioning the plan of care to be more about his quality of life, pain and symptom management with a focus on bringing him home where he wants to be so that he can spend his time with the people who love him the most. Patient's and daughter were extremely appreciative of the time spent on these advance care planning and goals of care discussions. They would like a plan for discharge home with hospice, preferring to utilize [facility] hospice because they have had an excellent experience with the [facility] home health group. I have updated the primary team who will notify care management. I have also updated nursing who will notify care management. (3) Diarrhea: Palliative Management of persistent/refractory diarrhea: Evaluate for potential causes of diarrhea common in palliative care and correct/treat when feasible: medications (overuse of laxatives, antibiotics, magnesium, chemotherapy), infection, diet, herbal products (e.g., milk thistle, cayenne, onesimo) fecal impaction, malabsorption syndromes from surgery or tumor, radiotherapy that includes abdomen in treatment field, inflammatory bowel disease and other comorbid disorders Medications: Loperamide (Imodium) 2 mg PO start with 4 mg, followed by 2 mg after each BM, not to exceed 8 capsules/24 hours but can go up to 54mg/day for palliative management Diphenoxylate/atropine (Lomotil) 1-2 tabs PO QID, maximum 8 per 24 hours Tincture of opium 0.6 mL PO q 4-6 hours prn Methylcellulose (e.g. Metamucil?) or pectin can help provide bulk to liquid stools Octreotide (Sandostatin) 50 mcg SQ/IV q 8 hours, maximum 1500 mcg/day Cholestyramine 2-4 g PO/day before meals (especially for c. difficile diarrhea) Pancrelipase (Creon, Pancrease) 500 2500 lipase units/kg PO with meals Diarrhea type: unspecified type Qualified Code(s): R19.7 - Diarrhea, unspecified (4) Weakness generalized: (5) Prostate cancer metastatic to multiple sites: (6) Acute hypoxemic respiratory failure: Plan * Patient moved to comfort care status. would like to try and optimize diarrhea mgt prior to dc home. reccs above. * Palliative prognostics support hi risk for mortality within 4-6 weeks. * Patient with declining PS, growing weakness, impaired mobility. Patient and family would like a focus on quality of life, comfort and relief of symptom burden. He would also like to return home with the addition of home health and hospice. * Primary team, nursing and care management have been updated. Family would like [facility] hospice because they have had an excellent experience so far with [facility] home health. * Patient's added that she had an appointment scheduled for new patient evaluation with [facility] [place] and asked if I would be able to assist with canceling this appointment for her. I reassured her that I would take care of this for her and I have updated Dr. Gaona/[facility] palliative medicine/[facility] [place]. Elsy Art DNP Clinical Director, Palliative Medicine History of Present Illness Reason for Consultation: On 12/17/22 @ 15:33 Misty Tse Wrote To Sonya Patel goals of care discussion Attending Physician: Misty Tse MD History of Present Illness Hayes Lopez is a 81yo male admitted 12/15/22 with weakness, reporting gprogressive decline with weakness, poor appetite, declining strength/using walker for all mobility. Hayes has a hx of met prostate ca for which he recently received Cycle 1 of danny zitaxel 12/08/2022/followed by Dr. Contreras/[facility]. PMH: type 2 diabetes, hyperlipidemia, metastatic prostate cancer dx Oct 2016/treated with RT/not a surgical candidate (androgen deprivation including Casodex & Firmagon; Casodex discontinued d/t side effects. He was on Firmagon and received the last dose in March 2020. He has rising of PSA while he is on Firmagon. He was started on Lupron in April 2020, but also his disease progressed with progression of lung nodule and lymphadenopathy and PSA increased to 341 in February 2021 and FNA from lung lesion was positive for metastatic prostate cancer. The patient was started on dose of reduced Taxotere w/excellent response-->decrease in PSA level, he received total of 6 cycles of Taxotere, last dose May 2021/PSA was rising--> placed on Lupron, prednisone and Zytiga; recent PET scan ++extensive disease progression & rising PSA level); AL, PAF, tachybrady syndrome s/p pacemaker, HTN, h/o CAD s/p CABG & stent; chronic systolic CHF s/p TAVR October 2022, GERD, IT band syndrome, hereditary and idiopathic peripheral neuropathy, prior PE, history of DVT. Patient has declining performance status and disease progression on multiple lines of treatment. Allergies Allergy/AdvReac Type Severity Reaction Status Date / Time No Known Allergies Allergy Verified 12/15/22 20:15 Home Medications Medication Instructions Recorded Confirmed Type glucosamine sulf dipot 1 cap PO AMHS 02/21/19 12/15/22 History chlr,msm,chond 550 mg-C 30 mg-erum 1 mg capsule (Glucosamine Chondroitin) nitroglycerin 0.4 mg sublingual 0.4 mg sublingual DIRECTED PRN 02/21/19 12/15/22 History tablet (Nitrostat) Chest Pain omeprazole 20 mg capsule,delayed 20 mg PO BID 02/21/19 12/15/22 History release potassium chloride 10 mEq 20 meq PO QAM 02/21/19 12/15/22 History tablet,extended release(part/cryst) (Klor-Con M) cholecalciferol (vitamin D3) 25 25 mcg PO QAM 01/08/21 12/16/22 History mcg (1,000 unit) tablet vit C 250 mg-vit E 90 mg-zinc 40 2 tab PO DAILY 10/16/21 12/15/22 History mg-copper 1 [id number] capsule (PreserVision AREDS-2) famotidine 20 mg tablet (Pepcid) 20 mg PO BID 03/17/22 12/15/22 History prednisone 5 mg tablet 5 mg PO AMHS 03/17/22 12/15/22 History acetaminophen 325 mg tablet 650 - 975 mg PO DAILY PRN 03/28/22 12/15/22 History (Tylenol) PAIN/FEVER ascorbic acid (vitamin C) 500 mg 1,000 mg PO DAILY 03/28/22 12/15/22 History tablet (Vitamin C) hydrocortisone 2.5 % topical cream 1 applic topical DAILY PRN 03/28/22 12/15/22 History UNDERARMS FOR FLARE UPS amiodarone 200 mg tablet 200 mg PO QAM 07/04/22 12/15/22 History loratadine 10 mg tablet (Claritin) 10 mg PO QAM 07/04/22 12/15/22 History aspirin 81 mg chewable tablet 81 mg PO QAM 10/15/22 12/15/22 History glipizide 5 mg tablet 2.5 mg PO DAILY 10/15/22 12/15/22 History tacrolimus 0.1 % topical ointment 1 applic topical BID PRN FLARES OF 10/15/22 12/15/22 History PSORIASIS tamsulosin 0.4 mg capsule (Flomax) 0.4 mg PO QAM 10/15/22 12/15/22 History atorvastatin 40 mg tablet (Lipitor) 40 mg PO PM 10/27/22 12/15/22 History fluticasone propionate 50 2 spray intranasal BID 11/05/22 12/15/22 History mcg/actuation nasal spray,suspension torsemide 20 mg tablet 20 mg PO QAM 11/05/22 12/15/22 History warfarin 5 mg tablet 5 mg PO DAILY@1600 #30 tabs 11/14/22 12/15/22 Rx diphenoxylate-atropine 2.5 1 tab PO QID PRN Diarrhea 12/15/22 12/15/22 History mg-0.025 mg tablet metoprolol succinate 25 mg 25 mg PO AMHS 12/15/22 12/15/22 History tablet,extended release 24 hr nystatin 100,000 unit/gram topical 1 applic topical TID 12/15/22 12/15/22 History powder ondansetron HCl 8 mg tablet 8 mg PO Q8H PRN Nausea 12/15/22 12/15/22 History prochlorperazine maleate 10 mg 10 mg PO Q6 PRN Nausea 12/15/22 12/15/22 History tablet Patient History Medical History (Updated 12/18/22 @ 09:55 by Elsy Art, ANDERSON) Acute respiratory failure with hypoxia Advanced care planning/counseling discussion Aortic stenosis Asthma Atrial fibrillation with RVR CAD (coronary artery disease) Status post PCI with a BMS to the mid LAD on 05/16/2016. 2.May 26, 2016 diagnostic cardiac catheterization at [facility], Dr. 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 Also, far beyond the stent, there was visible healed dissection flap, Type B, non- obstructive. 3.Status post CABG x 1 with a ABRAMS to LAD for persistent angina, May 2016. Cardiac pacemaker in situ Chronic systolic CHF (congestive heart failure) EF 37% DM2 (diabetes mellitus, type 2) DVT (deep venous thrombosis) "RLE" HLD (hyperlipidemia) Hyperlipidemia Hypertension Ischemic cardiomyopathy detention (current) use of anticoagulants AL on CPAP Palliative care by specialist Paroxysmal atrial fibrillation Pneumonia due to COVID-19 virus Prostate cancer metastatic to lung Tachy-shanita syndrome Weakness generalized Surgical History H/O esophagogastroduodenoscopy Hx of total knee arthroplasty S/P CABG x 1 S/P cholecystectomy S/P hip replacement S/P knee replacement Family History Other Diabetes Heart disease Social History Smoking Status: Never smoker Tobacco Type: Cigarettes Cigarettes Per Day: 40; Second Hand Exposure: No; Hx Alcohol Use: No Hx Substance Use: No Preferred Language: Cymro Communication Ability: Effective Visual Impairment: No Limitations Hearing Ability: Normal Transitional Studies Instructor Required: No Beliefs That Will Affect Care: Spiritual marital status: Current Living Situation: Spouse Current Living Situation Comment: Home with Other Information That Helps Us Care for You: No Feels Safe at Home: Yes Safety Concerns: Feels Safe At This Time Assistive Devices: CPAP and Walker Review of Systems Review of Systems: All systems reviewed & are unremarkable except as noted in Subjective Physical Exam Physical Exam: Frail, elderly, chronically ill-appearing male, resting on his left side in bed. Patient is very weak, with pale skin and mild respiratory distress noted. He answers questions in 3-4 word sentences. There is diminished breath sounds with a few scattered rhonchi. There is use of accessory muscles noted. Heart tones are S1-S2 and tachycardic. There is no JVD appreciated. Abdomen is mildly distended but not grossly tender to palpation. Bowel sounds are hypoactive. There is generalized weakness. Skin is pale and cool to touch. There is no gross mottling noted. Patient is awake alert and oriented x3. His mood is subdued and at times withdrawn. Results & Data ([facility]) Vital Signs (Past 12 Hours) Vital Signs Temp Pulse Pulse Resp BP Pulse Ox O2 Del Method 12/18/22 07:31 36.3 C L 76 18 130/68 96 Nasal Cannula 12/18/22 03:59 78 12/18/22 03:06 36.6 C 71 20 122/71 96 Nasal Cannula 12/18/22 00:15 36.6 C 70 20 102/64 96 Nasal Cannula 12/18/22 00:03 Nasal Cannula O2 Flow Rate 12/18/22 07:31 3 12/18/22 03:59 12/18/22 03:06 2 12/18/22 00:15 2 12/18/22 00:03 3 Laboratory Results data reviewed Diagnostic Findings data reviewed PG Care Time/CCT Total # of Minutes Spent Total Time Spent: 110 Total Time Spent with Patient: Total time spent is greater than 50% in coordination of care (as documented) at patient's floor/unit and/or counseling patient: I spent 110 minutes overall addressing this case: 15 in medical data review/outside data and imaging rev iew/discussion with referring provider(s) and/or preparation for the visit 20 in direct interaction with the patient and family 55 additional min Advance Care Planning/Goals of Care discussions as detailed above in note (must be >16min) 10min subsequent review and synthesis of assessment and plan 10 min communicating with other providers regarding the patient's case: primary tea, nursing, care mgt, oncology. Prolonged Care Time Prolonged Care Time: Yes Advanced Care Planning 98386 Advanced Care Planning 30 Min 31600 Advanced Care Planning Additional 30 [place] [address] IN/OBS CONSULT LVL 5,80M Patient Type New History Comprehensive Exam Comprehensive Medical Decision Making High Complexity Diagnoses Palliative care by specialist Z51.5 Advanced care planning/counseling discussion Z71.89 Diarrhea R19.7 Diarrhea type: unspecified type Weakness generalized R53.1 Prostate cancer metastatic to multiple sites C61 Acute hypoxemic respiratory failure J96.01 Additional Codes Advanced Care Planning - 64568 Advanced Care Planning 30 Min: 88735 Advanced Care Planning 30 Min ([id number]) Advanced Care Planning - 70807 Advanced Care Planning Additional 30 Min: 30332 Advanced Care Planning Additional 30 Min ([id number]) Prolonged Care Time - Prolonged Care Time: Yes ([id number])
[2022-12-18] MEDS ORDERED: LORazepam 0.5 MG TAB PO PRN (13:10)
[2022-12-18] MEDS ORDERED: MoRPHine SULFATE 10 MG/0.5 ML UDP PO PRN (13:10)
[2022-12-18] MEDS ORDERED: GLYCOPYRROLATE 0.2 MG/ML VIAL IV PRN (13:10)
[2022-12-18] MEDS: ASCORBIC ACID 500 MG TAB PO SCH (13:28)
[2022-12-18] MEDS: TAMSULOSIN HCL 0.4 MG CAP PO SCH (13:28)
[2022-12-18] MEDS: LORATADINE 10 MG TAB PO SCH (13:29)
[2022-12-18] MEDS: METOPROLOL SUCC 25MG EXT REL TAB PO SCH ×2 (13:29→21:06)
[2022-12-18] MEDS: AMIODARONE 200 MG TAB PO SCH (13:29)
[2022-12-18] MEDS: CHOLECALCIFEROL 1,000 UNITS 25 MCG TAB PO SCH (13:30)
[2022-12-18] MEDS ORDERED: AMPICILLIN 2,000 MG in SODIUM CHLOR 0.9% AD-VAN 100 ML IV SCH (14:30)
[2022-12-18] MEDS: ADVANCED PROBIOTIC 1250 MG CAPSULE PO SCH (15:14)
[2022-12-18] MEDS: PSYLLIUM or GUAR GUM FIBER POWDER PACKET PO SCH (15:29)
[2022-12-18] MEDS ORDERED: POTASSIUM CHLORIDE CRTAB 20 MEQ TABCR PO SCH (15:30)
[2022-12-18] MEDS: PANTOprazole 40 MG in SYRINGE 0 ML IV SCH (15:50)
[2022-12-18] MEDS: CEROVITE ADV FORMULA TAB PO SCH (15:50)
[2022-12-18 16:09] LABS: Phosphorus 1.6 mg/dl (2.5-4.9); Potassium 3.4 mmol/L (3.5-5.1)
[2022-12-18] MEDS ORDERED: POTASSIUM CHLORIDE CRTAB 20 MEQ TABCR PO STA (16:42)
--- NOTE | 2022-12-18 16:54 | Hospitalist Progress Note ---
Date of Service December 18, 2022 Assessment & Plan (1) Pancytopenia: Plan 81-year-old male with PMH of T2DM, HLD, metastatic prostate cancer, AL, tachybradycardia syndrome, status post pacemaker, HTN, CAD status post CABG and stent, chronic systolic CHF, status post TAVR October 2022, GERD, IT band syndrome, hereditary and idiopathic peripheral neuropathy, pulmonary embolism and DVT and PAF on Coumadin presented 3/ with complaint of diarrhea and weakness. 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 He is being managed for the following: History of metastatic prostate cancer Weakness Pancytopenia Gram-negative bacteremia Patient with diagnosis of prostate cancer, metastatic to multiple sites, started on cabazitaxel a week ago prior to arrival and has various symptoms including we akness/poor appetite/diarrhea. Patient with pancytopenia at presentation which seems to be new compared to October 2022 labs. Admitting CXR with no acute findings. Admitting UA not suggestive of UTI. Admitting Pro-Naeem elevated at 0.74. C. difficile negative. Weakness/diarrhea/poor appetite likely from cabazitaxel Rx versus bacteremia versus his chronic cancer status. Hematology on board, pt on filgrastim. Maintain hemoglobin greater than 8 and platelets greater than 10K. Patient will benefit from palliative care. c/w ampicillin 12/16 to cover for E. coli and Listeria. Based on 12/15 blood culture and sensitivity. 12/17 Bl Culture: pending; Await ID consult. C. difficile negative, c/w bulk forming agent Metamucil and as needed Imodium. Continue with supportive care. PT/OT when able. Patient to maintain follow-up with his outpatient oncology. Palliative consulted, appreciate recs. Supratherapeutic INR: Patient on 5 mg Coumadin daily. Admitting INR 9.3 and FOBT positive. noticed some blood in the stools. Patient is status post IV vitamin K, INR 1.6 12/16, closely monitor H&H, maintain on liquid to full liquid diet, GI consult. GI evaled - no plan for scopes. Hemoglobin has been stable. Will resume home aspirin, likely Coumadin as well. Patient reports no blood in the stool or no black stool GI bleed: Admitting Hb of 11.4; 9.3 next day. FOBT positive, noticed some blood in the stools. Full liquid diet/PPI IV/GI consult. Caution w/ BP meds. HnH 12 hourly or as needed. maintain Hb > 8. GI evaled, appreciate recs. Patient would like to stay in full liquid diet for now. Hyponatremia: Admitting sodium of 130, likely secondary to poor appetite and ongoing diarrhea. resolved. Likely type II NSTEMI: Troponin elevated at presentation, EKG with no acute ST or T changes. Patient with no chest pain. Transaminitis: Likely secondary to ongoing chemo and cancer. Will follow labs. Hepatitis panel pending. Other chronic medical conditions: Diabetes: On sliding scale insulin while in hospital. Hold home glipizide. PE/DVT/atrial fibrillation: Continue with home amiodarone and metoprolol. Coumadin on hold [see above] GERD: On PPI BPH: On Flomax Chronic systolic CHF: October 2022 echo with EF of 35 to 40%. torsemide and potassium supplements on hold due to ongoing volume loss via diarrhea. Monitor closely for volume status. Low threshold for IV fluid Sick sinus syndrome: Status post pacemaker Status post TAVR October 2022. AL and history of restrictive lung disease and pulmonary hypertension: CPAP at bedtime. DVT prophylaxis: SCDs, resume warfarin. Full code Dispo: Pall on board, CM to assist w/ dc planning. Admission and Anticipated Discharge Date Admission Date: December 15, 2022 Subjective Patient seen and examined at bedside as a follow-up of weakness, pancytopenia and bacteremia. Patient was lying in bed, on 3 L oxygen via nasal cannula, reports multiple loose stools, states finally getting " lumpy stool" but is still on the loose side. Patient reports feeling somewhat better today but could not clarify in what fronts. Patient's was updated at bedside at a later visit, approximately 20 minutes were used in this conversation alone. She wanted the patient to be comfortable and wanted everything else going on as it is now. Patient was asked to summarize her discussion with palliative care to which patient replied she wants the patient to be comfortable/more stable/then home with hospice later in the week. Upon asking specifically if she wants the lab draws to be stopped, patient to be on comfort care medication which are mostly in the line of morphine/Ativan and stopping current treatment, she asked to continue everything including heart monitors until such event as respiratory or cardiac arrest at which point she would want him transition to comfort care status. Physical Exam Physical Exam: GENERAL: Alert and oriented x3. NAD, on 3L NC O2. appears chronically ill/weak/frail. HEENT: No pallor, no icterus. Pupils equal, round and reactive to light. Oral mucosa moist. NECK: No JVD, no neck masses. HEART: S1 and S2 heard. Regular rate and rhythm. No murmur, no gallop. RESPIRATORY SYSTEM: Normal AP diameter. No accessory muscle use. No wheezing, no crackles. ABDOMEN: Soft, bowel sounds present, nontender, no distention. CENTRAL NERVOUS SYSTEM: No facial droop. Speech is clear. Obeys simple commands. Moves extremities. EXTREMITIES: No edema, no erythema seen. Left forearm and hand w/ old bruise. Results & Data Results & Data ([facility]) Vital Signs (Past 12 Hours) Vital Signs Temp Pulse Pulse Resp BP BP Pulse Ox 12/18/22 14:53 36.6 C 88 20 125/73 98 12/18/22 11:01 36.7 C 76 20 142/74 H 97 12/18/22 07:31 36.3 C L 76 18 130/68 96 O2 Del Method O2 Flow Rate 12/18/22 14:53 12/18/22 11:01 Nasal Cannula 3 12/18/22 07:31 Nasal Cannula 3
[2022-12-18] MEDS: MAGNESIUM SULFATE / D5W 1 GM/100 ML BAG IV SCH ×2 (17:03→19:51)
[2022-12-18] MEDS ORDERED: WARFARIN SOD 5 MG TAB PO SCH (17:30)
[2022-12-18] MEDS: PANTOprazole 40 MG TAB PO SCH (21:52)
[2022-12-19] MEDS: AMPICILLIN 2,000 MG in SODIUM CHLOR 0.9% AD-VAN 100 ML IV SCH ×3 (02:39→10:38)
[2022-12-19 07:04] LABS: Hematocrit (blood only) 23.8 % (42.0-52.0); Hemoglobin 8.1 g/dl (14.0-18.0); Mean Corpuscular Hemoglobin 30.6 pg (25.0-34.0); Mean Corpuscular Volume 89.8 fL (80.0-100.0); Mean Platelet Volume 11.6 fL (9.4-12.4); Nucleated RBC # (auto) 0.06 K/uL (0-0.12); Nucleated RBC % (auto) 4.7 %; Platelet Count 38 K/uL (130-400); RDW Coefficient of Variation 15.4 % (11.5-14.5); RDW Standard Deviation 50.4 fL (36.4-46.3); Red Blood Count 2.65 M/uL (4.70-6.10); White Blood Count 1.28 K/ul (4.8-10.8)
[2022-12-19 07:17] LABS: BUN Creatinine Ratio 17.2 (10-20); Calcium 6.6 mg/dl (8.5-10.1); Est GFR (Non-African American) 94.9 ml/min; Potassium 3.6 mmol/L (3.5-5.1)
[2022-12-19 07:19] LABS: Magnesium 2.3 mg/dl (1.7-2.4); Phosphorus 1.1 mg/dl (2.5-4.9)
[2022-12-19] MEDS ORDERED: POTASSIUM CHLORIDE CRTAB 20 MEQ TABCR PO STA (07:25)
[2022-12-19] MEDS ORDERED: POTASSIUM PHOS 3 MMOL/1 ML INFUSION IV STA (07:25)
[2022-12-19 07:26] LABS: INR 1.2 (0.9-1.1); Prothrombin Time 13.1 Seconds (9.0-12.0)
[2022-12-19] MEDS ORDERED: POTASSIUM PHOSPHATE 24 MMOL in SODIUM CHLORIDE 0.9% 500 ML IV ONE (08:00)
[2022-12-19] MEDS: LANTUS PER UNIT CHARGE SQ SCH ×2 (09:10→20:20)
[2022-12-19] MEDS: INSULIN ASPART PER UNIT SC SCH ×4 (09:10→20:20)
[2022-12-19] MEDS: ADVANCED PROBIOTIC 1250 MG CAPSULE PO SCH (09:15)
[2022-12-19] MEDS: FAMOTIDINE 20 MG TAB PO SCH ×2 (09:15→20:06)
[2022-12-19] MEDS: ASCORBIC ACID 500 MG TAB PO SCH (09:15)
[2022-12-19] MEDS: PANTOprazole 40 MG TAB PO SCH ×2 (09:15→20:07)
[2022-12-19] MEDS: ASPIRIN 81 MG ECTAB PO SCH (09:16)
[2022-12-19] MEDS: METOPROLOL SUCC 25MG EXT REL TAB PO SCH ×2 (09:16→20:06)
[2022-12-19] MEDS: PSYLLIUM or GUAR GUM FIBER POWDER PACKET PO SCH (09:16)
[2022-12-19] MEDS: TAMSULOSIN HCL 0.4 MG CAP PO SCH (09:16)
[2022-12-19] MEDS: POTASSIUM CHLORIDE CRTAB 20 MEQ TABCR PO SCH ×2 (09:16→10:39)
[2022-12-19] MEDS: LORATADINE 10 MG TAB PO SCH (09:16)
[2022-12-19] MEDS: AMIODARONE 200 MG TAB PO SCH (09:16)
[2022-12-19] MEDS: CHOLECALCIFEROL 1,000 UNITS 25 MCG TAB PO SCH (09:16)
[2022-12-19] MEDS: NYSTATIN POWDER 15GM BTL EXT SCH ×3 (09:17→20:07)
[2022-12-19] MEDS: FLUTICASONE PROPIONATE NA SPR 16 GM BTL NAE SCH ×2 (09:17→20:07)
[2022-12-19] MEDS: predniSONE 5 MG TAB PO SCH ×2 (10:39→20:08)
[2022-12-19] MEDS: OCTREOTIDE ACETATE 100 MCG/ML VIAL SQ SCH ×2 (10:39→17:51)
[2022-12-19] MEDS: LOPERAMIDE HCL 2 MG CAP PO PRN ×2 (10:39→22:43)
--- NOTE | 2022-12-19 11:46 | Palliative Care Progress Note ---
Date of Service December 19, 2022 Assessment & Plan (1) Palliative care by specialist: Plan: Remains on comfort care. Will finish abtx this admission. Does not want coumadin restarted agreeable to baby aspirin daily. (2) Weakness generalized: (3) Diarrhea: Plan: modest improvement with metamucil and imodium. does note metamucil is more palatable (4) Advanced care planning/counseling discussion: (5) Prostate cancer metastatic to multiple sites: (6) Pancytopenia: Plan Home w/hospice when stable for dc. CM requested for update to family re logistics, per family request. shares she was advised of sandostatin option for diarrhea. This may/may not be covered by hospice however would note: patient has trued and failed escalating remedies for persistent diarrhea including antibiotics, dietary changes, iv hydration, lomotil, questran, imodium, metamucil. Opioid use for symptom mgt may contribute modestly to improve diarrhea. Infectious lab studies negative/no C diff. Would inform hospice of failed escalating therapies. Compassionate use for sandostatin SQ is fair given the above treatment failures. Elsy Art DNP Clinical Director, Palliative Medicine Admission and Anticipated Discharge Date Admission Date: December 15, 2022 Subjective diarrhea persists Imodium in use family at bedside: and dtr had a dose of ativan & morphine last night - reports better rest, decreased anxiety, more comfort. patient otherwise without new complaints, was able to stand at bedside to use urinal with assistance would like to know about a date for going home, but also understands would like some symptomatic improvement to diarrhea. Review of Systems Review of Systems: All systems reviewed & are unremarkable except as noted in Subjective Physical Exam Physical Exam: Frail, elderly, chronically ill-appearing male, resting on his left side in bed. Patient is very weak, with pale skin and mild respiratory distress noted. He answers questions in 3-4 word sentences. There is diminished breath sounds with a few scattered rhonchi. There is use of accessory muscles noted. Heart tones are S1-S2 and tachycardic. There is no JVD appreciated. Abdomen is mildly distended but not grossly tender to palpation. Bowel sounds are hypoactive. There is generalized weakness. Skin is pale, cool to touch, no gross mottling noted. AAO x3. His mood is subdued. Results & Data ([facility]) Vital Signs (Past 12 Hours) Vital Signs Temp Pulse Resp BP Pulse Ox O2 Del Method O2 Flow Rate 12/19/22 11:41 36.8 C 63 18 120/70 97 12/19/22 10:51 Nasal Cannula 2 12/19/22 07:34 36.6 C 67 16 129/68 97 12/19/22 07:14 63 12/19/22 02:57 36.6 C 65 18 116/66 97 12/19/22 00:17 Nasal Cannula 2 PG Care Time/CCT Total # of Minutes Spent Total Time Spent: 65 Total Time Spent with Patient: Total time spent is greater than 50% in coordination of care (as documented) at patient's floor/unit and/or counseling patient: C[place] [address] SUB INP/OBS CARE 3/50MIN Patient Type Established History Comprehensive Exam Comprehensive Medical Decision Making High Complexity Diagnoses Palliative care by specialist Z51.5 Weakness generalized R53.1 Diarrhea R19.7 Diarrhea type: unspecified type Advanced care planning/counseling discussion Z71.89 Prostate cancer metastatic to multiple sites C61 Pancytopenia D61.818 (3) Diarrhea Diarrhea type: unspecified type Qualified Code(s): R19.7 - Diarrhea, unspecified
[2022-12-19 12:37] LABS: HBSAG NON-REACTIVE (NON-REACTIVE); Hepatitis A Antibody IgM NON-REACTIVE (NON-REACTIVE); Hepatitis B Core Antibody IgM NON-REACTIVE (NON-REACTIVE)
[2022-12-19] MEDS: AMPICILLIN 2,000 MG in 0.9 % SODIUM CHLORIDE 100 ML IV SCH ×3 (14:34→21:34)
--- NOTE | 2022-12-19 15:21 | Hospitalist Progress Note ---
Date of Service December 19, 2022 Assessment & Plan (1) Pancytopenia: Plan 81-year-old male with PMH of T2DM, HLD, metastatic prostate cancer, AL, tachybradycardia syndrome, status post pacemaker, HTN, CAD status post CABG and stent, chronic systolic CHF, status post TAVR October 2022, GERD, IT band syndrome, hereditary and idiopathic peripheral neuropathy, pulmonary embolism and DVT and PAF on Coumadin presented 3/3 with complaint of diarrhea and weakness. 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 He is being managed for the following: History of metastatic prostate cancer Weakness Pancytopenia Gram-negative bacteremia Patient with diagnosis of prostate cancer, metastatic to multiple sites, started on cabazitaxel a week ago prior to arrival and has various symptoms including we akness/poor appetite/diarrhea. Patient with pancytopenia at presentation which seems to be new compared to October 2022 labs. Admitting CXR with no acute findings. Admitting UA not suggestive of UTI. Admitting Pro-Naeem elevated at 0.74. C. difficile negative. Weakness/diarrhea/poor appetite likely from cabazitaxel Rx versus bacteremia versus his chronic cancer status. Now could be complicated by need for antibiotic treatment. Hematology on board, s/p filgrastim. Maintain hemoglobin greater than 8 and platelets greater than 10K. Patient will benefit from palliative care. c/w ampicillin 12/16 to cover for E. coli and Listeria. Based on 12/15 blood culture and sensitivity. 12/17 Bl Culture: No growth 48 hours ; Await ID consult. C. difficile negative, c/w bulk forming agent Metamucil and as needed Imodium. Octreotide started today. Continue with supportive care. PT/OT when able. Palliative on board, family wants all non essential/assisted meds be discontinued john. warfarin/aspirin/lipid meds. Are looking if diarrhea resolves before pt leaves home w/ hospice. Would like to inquire more about octreotide, will send to pharmacy for cost eval; d/w CM who will see if hospice will be able to cover this med. Severe Malnutrition: poor appetite, severe wt loss (10.5% in 1 month). teletypesetter operator consult. Not improving. Poor prognosis. Supratherapeutic INR: Patient on 5 mg Coumadin daily at home. Admitting INR 9.3 and FOBT positive. noticed some blood in the stools. Patient is status post IV vitamin K, INR 1.6 3. Pt would like to be on full liquid diet for now. Warfarin and aspirin being discontinued per family discussion. GI bleed: Admitting Hb of 11.4; 9.3 next day. FOBT positive, noticed some blood in the stools. Caution w/ BP meds. HnH 12 hourly or as needed. maintain Hb > 8. GI evaled, appreciate recs. Patient would like to stay in full liquid diet for now. Hb around 8. Hyponatremia: Admitting sodium of 130, likely secondary to poor appetite and ongoing diarrhea. resolved. Likely type II NSTEMI: Troponin elevated at presentation, EKG with no acute ST or T changes. Patient with no chest pain. Transaminitis: Likely secondary to ongoing chemo and cancer. Will follow labs. Hepatitis panel negative. Other chronic medical conditions: Diabetes: On sliding scale insulin while in hospital. Hold home glipizide. PE/DVT/atrial fibrillation: Continue with home amiodarone and metoprolol. Coumadin on hold [see above] GERD: On PPI BPH: On Flomax Chronic systolic CHF: October 2022 echo with EF of 35 to 40%. torsemide on hold due to ongoing volume loss via diarrhea. Monitor closely for volume status . Low threshold for IV fluid Sick sinus syndrome: Status post pacemaker Status post TAVR October 2022. AL and history of restrictive lung disease and pulmonary hypertension: CPAP at bedtime. DVT prophylaxis: SCDs. Full code Dispo: Pall on board, CM to assist w/ dc planning. Likely to home w/ hospice in 1-2 days. To med/surg per d/w family. Admission and Anticipated Discharge Date Admission Date: December 15, 2022 Subjective Patient seen and examined at bedside as a follow-up of weakness, pancytopenia and bacteremia. Patient was lying in bed, on 3 L oxygen via nasal cannula, reports multiple loose stools, reports feeling about the same as yesterday. Pt denies pain. Pt's and dtr met at bedside, they had re-discussion with palliative today. We discussed about plan of care going forward, family would like to discontinue all nonessential/assisted medicine for now; ok with blood draws in AM for electrolyte replacement; no telemetry monitoring. They are looking forward if octreotide will be approved per hospice or if it won't be cost prohibitive to them. They want PO alternative to ampicillin but they understand that it might not be as effective due to possible poor gi absorption. Also they are aware antibiotic alone can be the cause of ongoing diarrhea though at present C diff is negative. Physical Exam Physical Exam: GENERAL: Alert and oriented x3. NAD, on 3L NC O2. appears chronically ill/weak/frail. HEENT: No pallor, no icterus. Pupils equal, round and reactive to light. Oral mucosa moist. NECK: No JVD, no neck masses. HEART: S1 and S2 heard. Regular rate and rhythm. No murmur, no gallop. RESPIRATORY SYSTEM: Normal AP diameter. No accessory muscle use. No wheezing, no crackles. ABDOMEN: Soft, bowel sounds present, nontender, no distention. CENTRAL NERVOUS SYSTEM: No facial droop. Speech is clear. Obeys simple commands. Moves extremities. EXTREMITIES: No edema, no erythema seen. Left forearm and hand w/ old bruise. Results & Data Results & Data ([facility]) Vital Signs (Past 12 Hours) Vital Signs Temp Pulse Resp BP Pulse Ox O2 Del Method O2 Flow Rate 12/19/22 11:41 36.8 C 63 18 120/70 97 12/19/22 10:51 Nasal Cannula 2 12/19/22 07:34 36.6 C 67 16 129/68 97 12/19/22 07:14 63
[2022-12-19 16:04] LABS: Hematocrit (blood only) 26.1 % (42.0-52.0)
[2022-12-19 16:24] LABS: Calcium 6.6 mg/dl (8.5-10.1); Creatinine Clr Calc Pharmacy 103.7 ml/min; Est GFR (African American) 107.8 ml/min; Phosphorus 1.7 mg/dl (2.5-4.9); Potassium 4.6 mmol/L (3.5-5.1)
[2022-12-20] MEDS: AMPICILLIN 2,000 MG in 0.9 % SODIUM CHLORIDE 100 ML IV SCH ×6 (01:35→22:38)
[2022-12-20] MEDS: OCTREOTIDE ACETATE 100 MCG/ML VIAL SQ SCH ×3 (01:36→20:31)
[2022-12-20 07:27] LABS: BUN Creatinine Ratio 18.3 (10-20); Calcium 6.2 mg/dl (8.5-10.1); Creatinine Clr Calc Pharmacy 105.4 ml/min; Est GFR (African American) 108.5 ml/min; Est GFR (Non-African American) 93.6 ml/min; Potassium 4.2 mmol/L (3.5-5.1)
[2022-12-20 07:34] LABS: Phosphorus 1.3 mg/dl (2.5-4.9)
[2022-12-20 07:36] LABS: INR 1.5 (0.9-1.1); Prothrombin Time 15.7 Seconds (9.0-12.0)
[2022-12-20] MEDS ORDERED: POTASSIUM PHOS 3 MMOL/1 ML INFUSION IV STA (07:50)
[2022-12-20] MEDS ORDERED: POTASSIUM PHOSPHATE 30 MMOL in SODIUM CHLORIDE 0.9% 500 ML IV ONE (08:00)
[2022-12-20] MEDS: LANTUS PER UNIT CHARGE SQ SCH (09:04)
[2022-12-20] MEDS: INSULIN ASPART PER UNIT SC SCH ×3 (09:04→17:12)
[2022-12-20] MEDS: LORATADINE 10 MG TAB PO SCH (09:06)
[2022-12-20] MEDS: PANTOprazole 40 MG TAB PO SCH ×2 (09:06→20:33)
[2022-12-20] MEDS: predniSONE 5 MG TAB PO SCH ×2 (09:07→20:33)
[2022-12-20] MEDS: FAMOTIDINE 20 MG TAB PO SCH ×2 (09:07→20:32)
[2022-12-20] MEDS: ADVANCED PROBIOTIC 1250 MG CAPSULE PO SCH (09:07)
[2022-12-20] MEDS: CHOLECALCIFEROL 1,000 UNITS 25 MCG TAB PO SCH (09:07)
[2022-12-20] MEDS: PSYLLIUM or GUAR GUM FIBER POWDER PACKET PO SCH (09:08)
[2022-12-20] MEDS: METOPROLOL SUCC 25MG EXT REL TAB PO SCH ×2 (09:08→20:34)
[2022-12-20] MEDS: TAMSULOSIN HCL 0.4 MG CAP PO SCH (09:08)
[2022-12-20] MEDS: AMIODARONE 200 MG TAB PO SCH (09:08)
[2022-12-20] MEDS: POTASSIUM CHLORIDE CRTAB 20 MEQ TABCR PO SCH (09:08)
[2022-12-20] MEDS: NYSTATIN POWDER 15GM BTL EXT SCH ×3 (09:09→20:33)
[2022-12-20] MEDS: FLUTICASONE PROPIONATE NA SPR 16 GM BTL NAE SCH ×2 (09:09→20:32)
--- NOTE | 2022-12-20 17:08 | Hospitalist Progress Note ---
Date of Service December 20, 2022 Assessment & Plan (1) Pancytopenia: Plan 81-year-old male with PMH of T2DM, HLD, metastatic prostate cancer, AL, tachybradycardia syndrome, status post pacemaker, HTN, CAD status post CABG and stent, chronic systolic CHF, status post TAVR October 2022, GERD, IT band syndrome, hereditary and idiopathic peripheral neuropathy, pulmonary embolism and DVT and PAF on Coumadin presented 3/ with complaint of diarrhea and weakness. 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 He is being managed for the following: History of metastatic prostate cancer Weakness Pancytopenia Gram-negative bacteremia Patient with diagnosis of prostate cancer, metastatic to multiple sites, started on cabazitaxel a week ago prior to arrival and has various symptoms including we akness/poor appetite/diarrhea. Patient with pancytopenia at presentation which seems to be new compared to October 2022 labs. Admitting CXR with no acute findings. Admitting UA not suggestive of UTI. Admitting Pro-Naeem elevated at 0.74. C. difficile negative. Weakness/diarrhea/poor appetite likely from cabazitaxel Rx versus bacteremia versus his chronic cancer status. Now could be complicated by need for antibiotic treatment. Hematology on board, s/p filgrastim. Maintain hemoglobin greater than 8 and platelets greater than 10K. Patient will benefit from palliative care. c/w ampicillin 12/16 to cover for E. coli and Listeria. Based on 12/15 blood culture and sensitivity. 12/17 Bl Culture: No growth 48 hours C. difficile negative, c/w bulk forming agent Metamucil and as needed Imodium. Octreotide started 12/19. Continue with supportive care. Palliative on board, family wants all non essential/equipment operator intermodal yard meds be discontinued john. warfarin/aspirin/lipid meds. Are looking if diarrhea resolves before pt leaves home w/ hospice. Hospice will be able to cover for octreotide for 2 weeks per my discussion w/ CM. Per CM, pt to dc [place] to home w/ hospice. d/w ID, ideally recommends 4 weeks of iv ampicillin but since pt is going home w/ hospice, can DC him on High dose bactrim DS (2 tab BID for 4 weeks). Made family aware- apologized on behalf of ID regarding treatment duration misunder standing to patient's that happened during ID consult was happening today. Severe Malnutrition: poor appetite, severe wt loss (10.5% in 1 month). java lead consult. Not improving. Poor prognosis. Supratherapeutic INR: Patient on 5 mg Coumadin daily at home. Admitting INR 9.3 and FOBT positive. noticed some blood in the stools. Patient is status post IV vitamin K, INR 1.6 12/16. Pt would like to be on full liquid diet for now. Warfarin and aspirin being discontinued per family discussion. GI bleed: Admitting Hb of 11.4; 9.3 next day. FOBT positive, noticed some blood in the stools. Caution w/ BP meds. HnH 12 hourly or as needed. maintain Hb > 8. GI evaled, appreciate recs. Patient would like to stay in full liquid diet for now. Hb stable. warfarin and aspirin off. Hyponatremia: Admitting sodium of 130, likely secondary to poor appetite and ongoing diarrhea. resolved. Likely type II NSTEMI: Troponin elevated at presentation, EKG with no acute ST or T changes. Patient with no chest pain. Transaminitis: Likely secondary to ongoing chemo and cancer. Will follow labs. Hepatitis panel negative. Other chronic medical conditions: Diabetes: On sliding scale insulin while in hospital. Hold home glipizide. PE/DVT/atrial fibrillation: Continue with home amiodarone and metoprolol. Coumadin on hold [see above] GERD: On PPI BPH: On Flomax Chronic systolic CHF: October 2022 echo with EF of 35 to 40%. torsemide on hold due to ongoing volume loss via diarrhea. Monitor closely for volume status . Low threshold for IV fluid Sick sinus syndrome: Status post pacemaker Status post TAVR October 2022. AL and history of restrictive lung disease and pulmonary hypertension: CPAP at bedtime. DVT prophylaxis: SCDs. Full code Dispo: Pall on board, CM to assist w/ dc planning. Likely to home w/ hospice [place]. tele off. Admission and Anticipated Discharge Date Admission Date: December 15, 2022 Subjective Patient seen and examined at bedside as a follow-up of weakness, pancytopenia and bacteremia. Patient was lying in bed, on 3 L oxygen via nasal cannula, reports multiple loose stools, reports feeling about the same as yesterday. Pt denies pain. Per RN, 4 loose stool overnight and none in AM. Physical Exam Physical Exam: GENERAL: Alert and oriented x3. NAD, on 3L NC O2. appears chronically ill/weak/frail. HEENT: No pallor, no icterus. Pupils equal, round and reactive to light. Oral mucosa moist. NECK: No JVD, no neck masses. HEART: S1 and S2 heard. Regular rate and rhythm. No murmur, no gallop. RESPIRATORY SYSTEM: Normal AP diameter. No accessory muscle use. No wheezing, no crackles. ABDOMEN: Soft, bowel sounds present, nontender, no distention. CENTRAL NERVOUS SYSTEM: No facial droop. Speech is clear. Obeys simple commands. Moves extremities. EXTREMITIES: No edema, no erythema seen. Left forearm and hand w/ old bruise. Results & Data Results & Data ([facility]) Vital Signs (Past 12 Hours) Vital Signs Temp Pulse Resp BP Pulse Ox O2 Del Method 12/20/22 10:00 Room Air 12/20/22 07:52 36.5 C 64 18 111/70 95
--- NOTE | 2022-12-20 17:56 | Palliative Care Progress Note ---
Date of Service December 20, 2022 Assessment & Plan (1) Palliative care by specialist: Plan: Remains on comfort care. Will finish abtx this admission. Does not want coumadin restarted (2) Diarrhea: Plan: Modest improvement with metamucil and imodium. program/music director approved sandostatin SQ for two weeks. Suspect patient will not survive much beyond a few weeks. Continue current regimen. Elsy Art DNP Clinical Director, Palliative Medicine (3) Weakness generalized: (4) Advanced care planning/counseling discussion: (5) Prostate cancer metastatic to multiple sites: (6) Pancytopenia: Plan Home w/hospice when stable for dc. Modest improvement with metamucil and imodium. program/music director approved sandostatin SQ for two weeks. Suspect patient will not survive much beyond a few weeks. Continue current regimen. Elsy Art DNP Clinical Director, Palliative Medicine Admission and Anticipated Discharge Date Admission Date: December 15, 2022 Subjective on comfort care [facility] hospice diploma medical assistant approved sandostatin SQ for two weeks pt offers no new complaints. looking forward to returning home and being with family diarrhea somewhat better but still loose/liquid for the most part Review of Systems Review of Systems: All systems reviewed & are unremarkable except as noted in Subjective Physical Exam Physical Exam: Frail, elderly, chronically ill-appearing male, resting semi reclined in bed. +[place]. Patient is very weak, with pale skin and mild respiratory distress. diminished breath sounds with a few scattered rhonchi. There is use of accessory muscles noted. Heart tones are S1S2 and tachycardic. There is no JVD appreciated. Abdomen is mildly distended but not grossly tender to palpation. Bowel sounds are hypoactive. There is generalized weakness. Skin is pale, cool to touch, no gross mottling noted. AAO x3. His mood is subdued. Results & Data ([facility]) Vital Signs (Past 12 Hours) Vital Signs Temp Pulse Resp BP Pulse Ox O2 Del Method 12/20/22 10:00 Room Air 12/20/22 07:52 36.5 C 64 18 111/70 95 PG Care Time/CCT Total # of Minutes Spent Total Time Spent: 40 Total Time Spent with Patient: Total time spent is greater than 50% in coordination of care (as documented) at patient's floor/unit and/or counseling patient: Coding [place] [address] SUB INP/OBS CARE 3/50MIN Patient Type Established History Comprehensive Exam Comprehensive Medical Decision Making High Complexity Diagnoses Palliative care by specialist Z51.5 Diarrhea R19.7 Diarrhea type: unspecified type Weakness generalized R53.1 Advanced care planning/counseling discussion Z71.89 Prostate cancer metastatic to multiple sites C61 Pancytopenia D61.818 (2) Diarrhea Diarrhea type: unspecified type Qualified Code(s): R19.7 - Diarrhea, unspecified
[2022-12-20 22:14] VITALS: TEMP 98.2; O2SAT 97
[2022-12-21] MEDS: AMPICILLIN 2,000 MG in 0.9 % SODIUM CHLORIDE 100 ML IV SCH ×2 (03:34→06:37)
[2022-12-21] MEDS: OCTREOTIDE ACETATE 100 MCG/ML VIAL SQ SCH (03:34)
[2022-12-21 07:37] LABS: Calcium 5.8 mg/dl (8.5-10.1); Creatinine Clr Calc Pharmacy 103.7 ml/min; Est GFR (African American) 107.8 ml/min; Magnesium 1.8 mg/dl (1.7-2.4); Phosphorus 1.7 mg/dl (2.5-4.9); Potassium 4.4 mmol/L (3.5-5.1)
[2022-12-21] MEDS ORDERED: SODIUM PHOSPHATE 3 MMOL/1 ML INFUSION IV STA (07:41)
[2022-12-21] MEDS ORDERED: CALCIUM GLUCONATE 10% 2,000 MG in DEXTROSE 5% 50 ML IV ONE (07:50)
[2022-12-21] MEDS ORDERED: STAT IV STA (07:50)
[2022-12-21] MEDS ORDERED: SODIUM PHOSPHATE 12 MMOL in DEXTROSE 5% 250 ML IV ONE (08:00)
[2022-12-21] MEDS: FLUTICASONE PROPIONATE NA SPR 16 GM BTL NAE SCH (08:10)
[2022-12-21] MEDS: AMIODARONE 200 MG TAB PO SCH (08:11)
[2022-12-21] MEDS: TAMSULOSIN HCL 0.4 MG CAP PO SCH (08:11)
[2022-12-21] MEDS: ADVANCED PROBIOTIC 1250 MG CAPSULE PO SCH (08:11)
[2022-12-21] MEDS: LORATADINE 10 MG TAB PO SCH (08:11)
[2022-12-21] MEDS: CHOLECALCIFEROL 1,000 UNITS 25 MCG TAB PO SCH (08:11)
[2022-12-21] MEDS: METOPROLOL SUCC 25MG EXT REL TAB PO SCH (08:12)
[2022-12-21] MEDS: PSYLLIUM or GUAR GUM FIBER POWDER PACKET PO SCH (08:12)
[2022-12-21] MEDS: PANTOprazole 40 MG TAB PO SCH (08:12)
[2022-12-21] MEDS: NYSTATIN POWDER 15GM BTL EXT SCH (08:12)
[2022-12-21] MEDS: FAMOTIDINE 20 MG TAB PO SCH (08:13)
[2022-12-21] MEDS: POTASSIUM CHLORIDE CRTAB 20 MEQ TABCR PO SCH (08:13)
[2022-12-21] MEDS: predniSONE 5 MG TAB PO SCH (08:13)
--- NOTE | 2022-12-21 09:27 | Discharge Summary ---
Date of Service December 21, 2022 Admission HPI Per Admitting Provider CHIEF COMPLAINT: Weakness. HISTORY OF PRESENT ILLNESS: This is an 81-year-old male with past medical history significant for type 2 diabetes, hyperlipidemia, metastatic prostate cancer, obstructive sleep apnea, paroxysmal atrial fibrillation, tachybrady syndrome, status post pacemaker, hypertension, history of CAD s/p cabg, s/p stent chronic systolic CHF, status post TAVR in October 2022, GERD, IT band syndrome, hereditary and idiopathic peripheral neuropathy, , history of pulmonary embolism, history of DVT, diarrhea, presents with weakness. The patient was diagnosed with prostate cancer in October 2016. Because of his age and comorbid conditions, he thought was not a surgical candidate and treated with radiation treatment. He was also treated with androgen deprivation including Casodex and Firmagon. Casodex was discontinued because of side effects. He was on Firmagon and received the last dose in March 2020. He has rising of PSA while he is on Firmagon. He was started on Lupron in April 2020, but also his disease progressed with progression of lung nodule and lymphadenopathy and PSA increased to 341 in February 2021 and FNA from lung lesion was positive for metastatic prostate cancer. The patient was started on dose of reduced Taxotere with excellent response when decrease in PSA level, he received total of 6 cycles of Taxotere, last dose was in May 2021 and again the PSA was rising, so he was placed on Lupron, prednisone and Zytiga, and recently looks like his repeat PET scan was noted to be extensive disease progression and also rising PSA level and recently had discussion with the Hem/Onc and discussed about palliative care versus further treatment including Cabazitaxel and was told that he has incurable disease, just palliative treatment .Currently is on single dose of Cabazitaxel, received first dose on last Sunday. said that since then he is feeling very weak, poor appetite. His strength has decreased. He walks with a walker, and also he had several episodes of rakel rrhea. He has like 4-5 episodes of diarrhea today, one episode in the ER. says that she has noticed some blood in the stool in ER.. Because of weakness and ongoing diarrhea and poor appetite, not feeling well, his outpatient labs were done and was advised to come to the ER. In the ER, he is hemodynamically stable, afebrile. He is awake. WBC 0.18, hemoglobin 11.4, platelets are 68. INR is 9.3. Sodium 130, glucose was in 300's Lactate 1.9, total bilirubin 1.6. Troponin I high sensitivity 39.8, alkaline phosphatase 169. Currently, resting comfortably. Denies any headache. No neck pain, no chest pain, no back pain. Has chronic pain in the legs from neuropathy. No abdominal pain. He is not micturating much and sys there is some pressure while he is micturating. Denies any chest pain. He always gets short of breath. He feels short of breath, but he is saturating okay on room air. No cough, no runny nose, no sore throat, no earaches. His also noticed some petechial rash on his trunk region. ALLERGIES: No known drug allergies. PAST MEDICAL HISTORY: As mentioned above. PAST SURGICAL HISTORY: CABG, cardiac stent placement, pacemaker, left total knee arthroplasty, colonoscopies, cystoscopy, EGDs, laparoscopic cholecystectomy, cataract surgeries, status post TAVR, suture removal of ectropion. MEDICATIONS: The patient is on Tylenol 650-975 mg p.o. daily p.r.n., amiodarone 200 mg p.o. daily, vitamin C 1000 mg p.o. daily, aspirin 81 mg p.o. daily, Lipitor 40 mg p.o. p.m., vitamin D 1000units p.o. a.m., diphenoxylate/atropine 1 tablet p.o. q.i.d. p.r.n. for diarrhea, famotidine 20 mg p.o. b.i.d., Flonase 2 sprays intranasal b.i.d., glipizide 2.5 mg p.o. daily, glucosamine chondroitin 1 capsule p.o. b.i.d., hydrocortisone p.r.n., Claritin 10 mg p.o. a.m., metoprolol succinate 25 mg p.o. b.i.d., Nitrostat 0.4 mg sublingual p.r.n., omeprazole 20 mg p.o. b.i.d., nystatin 1 application topical t.i.d. in the groins, Zofran 8 mg p.o. q. 8 hours p.r.n. for nausea, potassium chloride 20 mEq p.o. a.m., prednisone 5 mg p.o. b.i.d., PreserVision 2 tablets p.o. daily, prochlorperazine 10 mg p.o. q. 6 hours p.r.n., tacrolimus p.r.n., Flomax 0.4 mg p.o. a.m., torsemide 20 mg p.o. a.m., warfarin 5 mg p.o. daily. FAMILY HISTORY: Significant for mother has diabetes; sister has diabetes; father has diabetes; mother has heart disorder; brother has stroke. SOCIAL HISTORY: , lives with his . Quit smoking in 1959, smoked 2 packs a day for 5 years. No alcohol, no drug use. Admission Exam Per Admitting Provider GENERAL: The patient is of moderate build, not in acute distress. VITAL SIGNS: Temperature 36.4, pulse 83, respiratory rate 18, blood pressure 15 4/85, oxygen 94% on room air. HEENT: Pupils equal, round and reactive to light. Oral mucosa moist. NECK: No JVD, no neck masses. CARDIOVASCULAR: S1 and S2 heard. Regular rate and rhythm. No murmur, no gallop. RESPIRATORY SYSTEM: Normal AP diameter. No accessory muscle use. No wheezing, crackles. ABDOMEN: Soft, bowel sounds present, nontender, no distention. CENTRAL NERVOUS SYSTEM: Cranial nerves II through XII grossly intact, nonfocal. EXTREMITIES: No edema, no erythema seen. SKIN: Some petechial rash seen on the trunk, mild. Principal Diagnosis History of metastatic prostatic cancer Weakness/decreased appetite/pancytopenia Listeria and E. coli bacteremia Severe malnutrition Supratherapeutic INR GI bleed Hyponatremia Type II NSTEMI Transaminitis Discharge Exam GENERAL: Alert and oriented x3. NAD, on 2L NC O2. appears chronically ill/weak/frail. HEENT: No pallor, no icterus. Pupils equal, round and reactive to light. Oral mucosa moist. NECK: No JVD, no neck masses. HEART: S1 and S2 heard. Regular rate and rhythm. No murmur, no gallop. RESPIRATORY SYSTEM: Normal AP diameter. No accessory muscle use. No wheezing, no crackles. ABDOMEN: Soft, bowel sounds present, nontender, no distention. CENTRAL NERVOUS SYSTEM: No facial droop. Speech is clear. Obeys simple commands. Moves extremities. EXTREMITIES: No edema, no erythema seen. Left forearm and hand w/ old bruise. Discharge Data Allergies Allergy/AdvReac Type Severity Reaction Status Date / Time No Known Allergies Allergy Verified 12/15/22 20:15 Consultations 12/15/22 19:26 ED Decision to Admit Stat 12/16/22 09:34 Consult Radiation Oncology Routine 12/16/22 14:11 Consult Infectious Diseases Routine 12/16/22 14:30 Consult Gastroenterology Routine 12/17/22 15:32 Consult Palliative Care Routine Hospital Course (1) Pancytopenia: Plan 81-year-old male with PMH of T2DM, HLD, metastatic prostate cancer, AL, tachybradycardia syndrome, status post pacemaker, HTN, CAD status post CABG and stent, chronic systolic CHF, status post TAVR October 2022, GERD, IT band syndrome, hereditary and idiopathic peripheral neuropathy, pulmonary embolism and DVT and PAF on Coumadin presented 12/15 with complaint of diarrhea and weakness. Of note, patient was diagnosed with prostate cancer in October 2016, follows hematology oncology- pt has been told he has incurable disease, was undergoing palliative care with cabazitaxel which was started about a week ago [employer] since which time he has been very weak with poor appetite and has had diarrhea. He was managed for the following: History of metastatic prostate cancer Weakness Pancytopenia Gram-negative bacteremia Patient with diagnosis of prostate cancer, metastatic to multiple sites, started on cabazitaxel a week ago prior to arrival and has various symptoms including weakness/poor appetite/diarrhea. Patient with pancytopenia at presentation which seems to be new compared to October 2022 labs. Admitting CXR with no acute findings. Admitting UA not suggestive of UTI. Admitting Pro-Naeem elevated at 0.74. C. difficile negative. Weakness/diarrhea/poor appetite likely from cabazitaxel Rx versus bacteremia versus his chronic cancer status. Now could be complicated by need for antib iotic treatment. Hematology on board, s/p filgrastim. Maintain hemoglobin greater than 8 and platelets greater than 10K. Patient will benefit from palliative care. c/w ampicillin 12/16 to cover for E. coli and Listeria. Based on 12/15 blood culture and sensitivity. 12/17 Bl Culture: No growth 48 hours C. difficile negative, c/w bulk forming agent Metamucil and as needed Imodium. Octreotide started 12/19. Continue with supportive care. Palliative on board, family wants all non essential/senior care meds be discontinued john. warfarin/aspirin/lipid meds. Are looking if diarrhea resolves before pt leaves home w/ hospice or if they can do octreotide at home. Hospice will be able to cover for octreotide for 2 weeks per my discussion w/ CM. Per CM, pt to dc today to home w/ hospice. d/w ID 12/20, ideally recommends 4 weeks of iv ampicillin but since pt is going home w/ hospice, can DC him on High dose bactrim DS (2 tab BID for 4 weeks). Pt being discharged to home w/ hospice. Severe Malnutrition: poor appetite, severe wt loss (10.5% in 1 month). rib stiffener and heel dipper consult. Not improving. Poor prognosis. Supratherapeutic INR: Patient on 5 mg Coumadin daily at home. Admitting INR 9.3 and FOBT positive. noticed some blood in the stools. Patient is status post IV vitamin K, INR 1.6 12/16. Pt would like to be on full liquid diet for now. Warfarin and aspirin being discontinued per family discussion. GI bleed: Admitting Hb of 11.4; 9.3 next day. FOBT positive, noticed some blood in the stools. Caution w/ BP meds. HnH 12 hourly or as needed. maintain Hb > 8. GI evaled, appreciate recs. Patient would like to stay in full liquid diet for now. Hb stable. warfarin and aspirin off. Hyponatremia: Admitting sodium of 130, likely secondary to poor appetite and ongoing diarrhea. resolved. Likely type II NSTEMI: Troponin elevated at presentation, EKG with no acute ST or T changes. Patient with no chest pain. Transaminitis: Likely secondary to ongoing chemo and cancer. Will follow labs. Hepatitis panel negative. Other chronic medical conditions: Diabetes: On sliding scale insulin while in hospital. Hold home glipizide. PE/DVT/atrial fibrillation: Continue with home amiodarone and metoprolol. Coumadin on hold [see above] GERD: On PPI BPH: On Flomax Chronic systolic CHF: October 2022 echo with EF of 35 to 40%. torsemide on hold due to ongoing volume loss via diarrhea. Monitor closely for volume status . Low threshold for IV fluid Sick sinus syndrome: Status post pacemaker Status post TAVR October 2022. AL and history of restrictive lung disease and pulmonary hypertension: CPAP at bedtime. DVT prophylaxis: SCDs. Full code Patient is being discharged to home with hospice. Home Health Attestation I certify that this patient is under my care and that I, or a physicians assistant store director working with me, had a face to-face encounter that meets the home health [id number] encounter requirements with this patient. The encounter with the patient was in whole, or in part, for the following medical condition, which is the primary reason for home health care (list medical condition): weakness I certify that, based on my findings, the following services are medically necessary home health services: My clinical findings support the need for the above services because: OT Assess ADL Status and Restore Function w ADLs PT Assessment for Endurance / Balance / Strength PT Eval for Safety and Mobility PT Eval for Safety, Gait Training, Assistive Devices PT Gait and Balance Training, Strengthening and Safety Skilled Nsg Assessment Further, I certify that my clinical findings support that this patient is homebound (i.e. absences from home require considerable and taxing effort and are for medical reasons or anabaptism services or infrequently or of short duration when for other reasons) because: Supportive Aid - Walker Transportation Assistance/Unable to Leave Home Unassisted Certification for Home Health Services: Based on the above findings, I certify that this patient is confined to the home and needs intermittent mcc care, physical therapy and/or speech therapy or continues to need occupational therapy. The patient is under my care, and I have initiated the establishment of the plan of care. This patient will be followed by a physician who will periodically review the plan of care. Total Time Total Time Spent Total Time Spent (In Minutes): 45 Discharge Plan Discharge Items Patient Disposition: Hospice - Home Reason For Visit: WEAKNESS Discharge Diagnosis: History of metastatic prostatic cancer Weakness/decreased appetite/pancytopenia Listeria and E. coli bacteremia Severe malnutrition Supratherapeutic INR GI bleed Hyponatremia Type II NSTEMI Transaminitis Activity: Resume your previous activity Non-emergency contact: Primary Care Provider Call non-emergency contact if: you have any medication questions Follow-up/Referrals: Jones Estrada MD [Primary Care Provider] - Diet: Regular Addtl Attending Provider Instructions: You are being discharged to home with hospice. As per our discussion during hospital admission, his aspirin/warfarin/statin/vitamin C/torsemide/glipizide has been discontinued. As per other medication and instituting comfort care medication, hospice will take over once discharged to hospice care. Pending Studies at Discharge: Yes (Blood culture final results.) Stand-Alone Forms: My [facility] Medications and DC Order Prescriptions: New octreotide acetate 100 mcg/mL Solution 50 mcg subcut Q8H Qty: 25 0RF lorazepam 0.5 mg Tablet 0.5 mg PO Q4H PRN (Reason: anxiety/agitation) 2 Days Qty: 7 0RF morphine concentrate 100 mg/5 mL (20 mg/mL) Solution 5 mg PO Q1H PRN (Reason: pain/discomfort/for comfort measures) 2 Days Qty: 15 0RF Advanced Probiotic 625 mg (10 billion cell) Capsule 2 cap PO DAILY 28 Days Qty: 56 0RF loperamide 2 mg Capsule 2 mg PO Q2H PRN (Reason: loose stool) Qty: 30 0RF Psyllium Or Guar Gum Fiber Sup [Metamucil Or Nutrisource Fiber Supplement] 1 pkg PO QAM Qty: 7 0RF sulfamethoxazole-trimethoprim [Bactrim DS] 800-160 mg tablet 2 tab PO BID 28 Days Qty: 112 0RF Phospha 250 Neutral 250 mg Tablet 2 tab PO QID Qty: 56 0RF Continued omeprazole 20 mg capsule,delayed release(DR/EC) 20 mg PO BID potassium chloride [Klor-Con M10] 10 mEq tablet,ER particles/crystals 20 meq PO QAM Glucosamine Chondroitin 550-30-1 mg Capsule 1 cap PO [facility] cholecalciferol (vitamin D3) 25 mcg (1,000 unit) Tablet 25 mcg PO QAM amiodarone 200 mg tablet 200 mg PO QAM loratadine [Claritin] 10 mg Tablet 10 mg PO QAM fluticasone propionate 50 mcg/actuation [place],Suspension 2 spray INTRANASAL BID Rx Instructions: administer into each nostril ondansetron HCl 8 mg Tablet 8 mg PO Q8H PRN (Reason: Nausea) prochlorperazine maleate 10 mg tablet 10 mg PO Q6 PRN (Reason: Nausea) nystatin 100,000 unit/gram powder 1 applic TOPICAL TID Rx Instructions: apply to groin metoprolol succinate 25 mg tablet extended release 24 hr 25 mg PO [facility] PreserVision AREDS-2 250-90-40-1 mg Capsule 2 tab PO DAILY prednisone 5 mg tablet 5 mg PO AMHS famotidine [Pepcid] 20 mg tablet 20 mg PO BID acetaminophen [Tylenol] 325 mg Tablet 650 - 975 mg PO DAILY PRN (Reason: PAIN/FEVER) ascorbic acid (vitamin C) [Vitamin C] 500 mg Tablet 1,000 mg PO DAILY hydrocortisone 2.5 % Cream 1 applic TOPICAL DAILY PRN (Reason: UNDERARMS FOR FLARE UPS) tamsulosin [Flomax] 0.4 mg Capsule 0.4 mg PO QAM tacrolimus 0.1 % Ointment 1 applic TOPICAL BID PRN (Reason: FLARES OF PSORIASIS) Rx Instructions: apply to underarms Discontinued nitroglycerin [Nitrostat] 0.4 mg Tablet, Sublingual 0.4 mg sublingual DIRECTED PRN (Reason: Chest Pain) Rx Instructions: NEEDED FOR CHEST PAIN : ONE TABLET UNDER THE TONGUE EVERY 5 MINUTES UP TO 3 DOSES. atorvastatin [Lipitor] 40 mg Tablet 40 mg PO PM torsemide 20 mg tablet 20 mg PO QAM diphenoxylate-atropine 2.5-0.025 mg tablet 1 tab PO QID PRN (Reason: Diarrhea) aspirin 81 mg Tablet,Chewable 81 mg PO QAM glipizide 5 mg Tablet 2.5 mg PO DAILY warfarin 5 mg Tablet 5 mg PO DAILY@1600 Qty: 30 0RF Discharge Orders: Discharge Order (Routine); Ordered 12/21/22 Ordered By: Misty Fofana/Other Patient Handouts: Understanding Listeria Admission Data Admit Date/Time: 12/15/22 20:27 Attending Provider: Misty Tse Admit Provider: Guille Kelly Primary Care Provider: Jones Estrada Other Providers: [facility],Home [facility] ; Guille Kelly ; Estela Krishnamurthy ; Avery Price ; Leela Gomez ; Elvis Echavarria I. ; Go Pressley II ; Shelly Wilson ; Fredy Fabian ; Louis Desai ; Razia Lozano ; Marry Maguire ; Sonya Patel
[2022-12-21 09:28] VITALS: BP 127/69; PULSE 71
[2022-12-21] MEDS ORDERED: POT PHOSPHATE MONOBASIC W/ SOD TAB PO SCH (13:00)
== END 2022-12-21 10:21 | disposition hospice, home (50) | DRG 393 ==
LOC: ED 15:18 → 2W 20:27 → 3E 12-20 18:42